=== PATIENT | female | born 1945 | race Caucasian/White ===

== ENCOUNTER 2016-06-23 18:31 | Inpatient (IN) | payer OTHER ==
[~2016-06-23] VITALS: Ht 154.9 cm; Wt 99.1 kg
[~2016-06-23 18:31] MED LIST: ALLO300T2 PO; ASPCH81X PO; CLON0.1T12 PO; FRS/40 PO; HYDR-5688 PO; IPRASOL4 INH; METO50TA7 PO; NTRGSL/4 UT; SPRIN/30 INH; TRAM-10 PO; VALS40TA2 PO; VNTHFA/IN INH; WARF5TAB7 PO
[2016-06-23] MEDS ORDERED: LABETALOL HCL IV 5 MG/ML 20ML IV STA (18:59)
[2016-06-23] MEDS ORDERED: ONDANSETRON INJ 2 MG/ML 2 ML VIAL IV STA (18:59)
[2016-06-23] MEDS ORDERED: MoRPHine SULFATE 4 MG/ML 1 ML CARP\\VIAL IV PRN (19:00)
--- NOTE | 2016-06-23 19:12 | EMERGENCY ROOM VISIT NOTE ---
History Report prepared by Ra: Kirby Molina Under the Supervision of: Dr. Derrek Foley M.D. First contact with patient: 18:56 Chief Complaint: DIZZY Stated Complaint: DIZZINESS FOR 5 DAYS, H/O BRAIN BLEED 03/16 Nursing Triage Summary: Pt's daughter reports pt has been dizzy x1 week Pt had brain bleed in march and was in [place] 2 weeks pt c/o headache x several days History of Present Illness The patient is a 70 year old female who presents to the Emergency Room with complaints of intermittent dizziness beginning about 5 days ago. She notes she has a recent history of a brain bleed occurring in March of 2016. The patient has also had a headache which she rates a 10/10 in severity. She reports the headache has been around a 10/10 for about 1 week. She hit her head a few days ago while getting into a car. The patient admits to having a cough primarily at night, but denies having any fever, nausea, or difficult moving her arm or legs. The patient is on blood pressure medication but has not been taking it regularly as she often forgets. She notes she was recently taken off of Coumadin. Source of History: patient, other (aide) Onset: about 5 days ago Position: head Quality: other (dizziness) Timing: intermittent Associated Symptoms: + headache (10/10), No fevers, No nausea Note: The patient denies having any difficult moving her ams or legs. Review of Systems See HPI for pertinent positives & negatives. A total of 10 systems reviewed and were otherwise negative. Past Medical & Surgical Medical Problems: (1) Atrial fibrillation (2) CAD (coronary artery disease) (3) CKD (chronic kidney disease), stage IV (4) COPD, severe (5) Depression (6) DM type 2 (diabetes mellitus, type 2) (7) Dyslipidemia (8) GERD (gastroesophageal reflux disease) (9) History of intracranial hemorrhage (10) HTN (hypertension) (11) IBS (irritable bowel syndrome) (12) Nontraumatic intracerebral hemorrhage Surgical Problems: (1) H/O sinus surgery (2) History of total left knee replacement (3) S/P cholecystectomy Family History No pertinent family history stated. Social History Smoking Status: Never Smoker Current/Historical Medications Scheduled Allopurinol (Zyloprim), 450 MG PO DAILY Chlorhexidine Gluconate (Mouth (Periogard), 15 ML PO BID Clonidine Hcl (Catapres), 0.2 MG PO BID Famotidine (Pepcid), 20 MG PO DAILY Furosemide (Lasix), 40 MG PO DAILY Levetiracetam (Keppra), 500 MG PO BID Metoprolol Succ (Toprol Xl) (Toprol-Xl ), 100 MG PO HS Potassium Chloride (Micro-K Ext Rel), 10 MEQ PO DAILY Tiotropium [place] (Spiriva Handihaler), 1 CAP INH DAILY Scheduled PRN Acetaminophen Tab (Tylenol), 650 MG PO Q4 PRN for Pain Albuterol Hfa (Ventolin Hfa), 2 PUFFS INH Q4H PRN for SOB/Wheezing Docusate Sodium (Docusate Sodium), 1 CAP PO BID PRN for Constipation Ipratropium-Albuterol (Duoneb), 1 TREATMENT INH QID PRN for SOB/Wheezing Nitroglycerin (Nitrostat), 0.4 MG UT UD PRN for Chest Pain Tramadol (Ultram), 50 MG PO Q8H PRN for Pain Allergies Coded Allergies: Verapamil (Verified Allergy, Mild, UNKNOWN, 06/23/16) [place] [facility] [place]inopril (Verified Adverse Reaction, Mild, COUGH, 06/23/16) Physical Exam Vital Signs Date Time Temp Pulse Resp B/P Pulse Ox O2 Delivery O2 Flow Rate FiO2 06/23/16 21:19 179/80 06/23/16 20:25 80 18 181/114 97 Room Air 06/23/16 20:04 86 18 206/155 93 Room Air 06/23/16 18:40 36.5 89 18 224/123 97 Room Air Physical Exam GENERAL: Patient is in no acute distress. HEENT: No acute trauma, normocephalic atraumatic, mucous membranes moist, no nasal congestion, no scleral icterus. Pupils are equal, round, and reactive to light. NECK: No stridor, no adenopathy, no meningismus, trachea is midline. LUNGS: Clear to auscultation bilaterally, no wheeze, no rhonchi, breath sounds equal. HEART: Without murmurs gallops or rubs, regular rate and rhythm. ABDOMEN: Soft, nontender, bowel sounds positive, no hernias, no peritonitis. EXTREMITIES: No cyanosis or edema, full range of motion of all the joints without pain or difficulty, no signs for acute trauma. NEUROLOGIC: Oriented x 3, no acute motor or sensory deficits, no focal weakness. SKIN: No rash, no jaundice, no diaphoresis. Medical Decision & Procedures ER Provider Diagnostic Interpretation: X ray results and stated below per my interpretation and radiologist interpretation. Other radiology results and stated below per my review and radiologist interpretation: CT HEAD WITHOUT CONTRAST (CT) FINDINGS: There are expected evolutionary changes of the previously described right occipital hemorrhage. Only minimal hemorrhage is visualized. There is no CT evidence of acute cortical infarction. There is a right cerebellar infarct which was not clearly visualized the prior study. There is a right basal ganglial lacunar infarct. There is an old infarct in the left external capsule There are extensive white matter hypodensities likely on a small vessel basis. There is no evidence of pathologic ventricular dilatation. There is no evidence of acute sinusitis IMPRESSION: 1. Right cerebellar infarct which appears better defined than on the preceding study 2. Resolving right occipital lobe hemorrhage 3. Old lacunar infarct involving the right basal ganglia and left external capsule 4. No evidence of acute hemorrhage. 5. Extensive white matter disease Electronically signed by: Renato Marti M.D. 06/23/2016 7:51 PM Dictated Date/Time: 06/23/2016 7:48 PM Laboratory Results 06/23/16 19:25 Red Blood Count 4.61, Mean Corpuscular Volume 90.2, Mean Corpuscular Hemoglobin 31.5, Mean Corpuscular Hemoglobin Concent 34.9, Mean Platelet Volume 12.0, Neutrophils (%) (Auto) 48.4, Lymphocytes (%) (Auto) 38.1, Monocytes (%) (Auto) 8.6, Eosinophils (%) (Auto) 3.9, Basophils (%) (Auto) 0.7, Neutrophils # (Auto) 3.44, Lymphocytes # (Auto) 2.71, Monocytes # (Auto) 0.61, Eosinophils # (Auto) 0.28, Basophils # (Auto) 0.05 06/23/16 19:25 Test 06/23/16 18:35 06/23/16 19:25 Urine Color YELLOW Urine Appearance CLEAR (CLEAR) Urine pH 7.0 (4.5-7.5) Urine Specific [place] 1.012 (1.000-1.030) Urine Protein 1+ (NEG) Urine Glucose (UA) NEG (NEG) Urine Ketones NEG (NEG) Urine Occult Blood NEG (NEG) Urine Nitrite NEG (NEG) Urine Bilirubin NEG (NEG) Urine Urobilinogen NEG (NEG) Urine Leukocyte Esterase NEG (NEG) Urine WBC (Auto) 1-5 /hpf (0-5) Urine RBC (Auto) 0-4 /hpf (0-4) Urine Hyaline Casts (Auto) 0 /lpf (0-5) Urine Epithelial Cells (Auto) >30 /lpf (0-5) Urine Bacteria (Auto) NEG (NEG) White Blood Count 7.11 K/uL (4.8-10.8) Red Blood Count 4.61 M/uL (4.2-5.4) Hemoglobin 14.5 g/dL (12.0-16.0) Hematocrit 41.6 % (37-47) Mean Corpuscular Volume 90.2 fL (80-100) Mean Corpuscular Hemoglobin 31.5 pg (25-34) Mean Corpuscular Hemoglobin Concent 34.9 g/dl (32-36) Platelet Count 150 K/uL (130-400) Mean Platelet Volume 12.0 fL (7.4-10.4) Neutrophils (%) (Auto) 48.4 % Lymphocytes (%) (Auto) 38.1 % Monocytes (%) (Auto) 8.6 % Eosinophils (%) (Auto) 3.9 % Basophils (%) (Auto) 0.7 % Neutrophils # (Auto) 3.44 K/uL (1.4-6.5) Lymphocytes # (Auto) 2.71 K/uL (1.2-3.4) Monocytes # (Auto) 0.61 K/uL (0.11-0.59) Eosinophils # (Auto) 0.28 K/uL (0-0.5) Basophils # (Auto) 0.05 K/uL (0-0.2) RDW Standard Deviation 46.5 fL (36.4-46.3) RDW Coefficient of Variation 14.2 % (11.5-14.5) Immature Granulocyte % (Auto) 0.3 % Immature Granulocyte # (Auto) 0.02 K/uL (0.00-0.02) Prothrombin Time 10.7 SECONDS (9.0-12.0) Prothromb Time International Ratio 1.0 (0.9-1.1) Activated Partial Thromboplast Time 23.0 SECONDS (21.0-31.0) Partial Thromboplastin Ratio 0.9 Anion Gap 7.0 mmol/L (3-11) Estimated GFR () 32.0 Estimated GFR (Non- 27.6 BUN/Creatinine Ratio 21.2 (10-20) Calcium Level 9.4 mg/dl (8.5-10.1) Total Bilirubin 0.4 mg/dl (0.2-1) Aspartate Amino Transf (AST/SGOT) 23 U/L (15-37) Alanine Aminotransferase (ALT/SGPT) 18 U/L (12-78) Alkaline Phosphatase 67 U/L (45-117) Total Protein 7.1 gm/dl (6.4-8.2) Albumin 3.3 gm/dl (3.4-5.0) Globulin 3.8 gm/dl (2.5-4.0) Albumin/Globulin Ratio 0.9 (0.9-2) Laboratory results reviewed by me. Medications Administered Medications (Trade) Dose Ordered Sig/Nydia Route Start Time Stop Time Status Last Admin Dose Admin Labetalol HCl (Normodyne IV) 20 mg NOW STAT IV 06/23/16 18:59 06/23/16 19:03 DC 06/23/16 20:07 20 MG Ondansetron HCl (Zofran Inj) 4 mg NOW STAT IV 06/23/16 18:59 06/23/16 19:03 DC 06/23/16 18:59 4 MG Morphine Sulfate (MoRPHine SULFATE INJ) 4 mg Q15M PRN IV 06/23/16 19:00 07/07/16 18:59 06/23/16 19:37 4 MG ECG Rate (beats per minute): 83 Rhythm: atrial fibrillation Findings: no acute ischemic change, no ectopy ED Course 1855: The patient was evaluated in room C8. A complete history and physical exam was performed. 1858: Ordered Zofran Inj 4 mg IV, and Normodyne IV 20 mg IV. 1899: Ordered Morphine Sulfate 4 mg IV. 1957: I reassessed the patient. She feels better from the morphine. I talked about staying in the hospital and she will discuss this with her daughter. 2019: The patient has decided on staying in the hospital. 2044: Discussed the patient's case with Dr. Dwyer. The patient will be evaluated for further management. Medical Decision Differentials include intracranial bleeding, uncontrolled hypertension, medication noncompliance, electrolyte imbalance, anemia, cardiac ischemia, and infection. There is no leukocytosis or concerning anemia. Renal panel testing shows renal insufficiency but this appears baseline. There was no hepatitis. EKG shows A. fib, no acute ischemia. There was no coagulopathy. Urinalysis does not show evidence for infection. Brain CT shows resolving hemorrhage, no acute hemorrhage seen. A subacute stroke was seen in the cerebellum. The patient presents with a headache and dizziness. She has had symptoms now for days. She is not a TPA candidate. She received IV morphine and IV Zofran. She received IV labetalol because of the persistently elevated blood pressure. Given the dizziness, given the new stroke findings on CT, given her complaints and persistent hypertension, I do think admission/observation is warranted. I spoke with the patient and case management. The on-call hospitalist was consulted. Consults Time Called: 2039 Consulting Physician: Dr. Dwyer - Bernarda Perea Returned Call: 2044 Discussed the patient's case with Dr. Dwyer. The patient will be evaluated for further management. Impression Primary Impression: HTN (hypertension) Additional Impressions: CVA (cerebral vascular accident) Dizziness Scribe Attestation The scribe's documentation has been prepared under my direction and personally reviewed by me in its entirety. I confirm that the note above accurately reflects all work, treatment, procedures, and medical decision making performed by me. Departure Information Dispostion Being Evaluated By Hospitalist Referrals Cristiano Cerda M.D. (PCP) Patient Instructions [facility] Health Problem Qualifiers
[2016-06-23 19:22] LABS: URINE APPEARANCE CLEAR (CLEAR); URINE BILIRUBIN NEG (NEG); URINE COLOR YELLOW; URINE EPITHELIAL CELL AUTO >30 /lpf (0-5); URINE NITRITE NEG (NEG); URINE SPECIFIC GRAVITY 1.012 (1.000-1.030); UROBILINOGEN NEG (NEG); ZZUR CULT IF INDIC CLEAN CATCH NO
[2016-06-23 19:29] LABS: MANUAL MICROSCOPIC REQUIRED? NO; REVIEW REQ? NO
[2016-06-23 19:38] LABS: BASO % 0.7 %; BASO ABS # 0.05 K/uL (0-0.2); COMPLETE YES; EOS % 3.9 %; HEMATOCRIT 41.6 % (37-47); IG% 0.3 %; LYMPH % 38.1 %; LYMPH ABS # 2.71 K/uL (1.2-3.4); MEAN CELL VOLUME 90.2 fL (80-100); MEAN CORPUSCULAR HEMOGLOBIN 31.5 pg (25-34); MEAN CORPUSCULAR HGB CONC 34.9 g/dl (32-36); MONO % 8.6 %; NEUT % 48.4 %; PLATELET COUNT 150 K/uL (130-400); RED BLOOD COUNT 4.61 M/uL (4.2-5.4); WHITE BLOOD COUNT 7.11 K/uL (4.8-10.8)
[2016-06-23 19:50] LABS: PARTIAL THROMBOPLASTIN RATIO 0.9; PROTHROMBIN TIME (PATIENT) 10.7 SECONDS (9.0-12.0)
--- NOTE | 2016-06-23 19:52 | DIAGNOSTIC IMAGING REPORT ---
CT HEAD WITHOUT CONTRAST (CT) CLINICAL HISTORY: Severe headache, dizziness, history of brain hemorrhage COMPARISON STUDY: 03/08/2016 TECHNIQUE: Axial CT of the brain is performed from the vertex to the skull base. IV contrast was not administered for this examination. CT DOSE: 623.48 mGy.cm FINDINGS: There are expected evolutionary changes of the previously described right occipital hemorrhage. Only minimal hemorrhage is visualized. There is no CT evidence of acute cortical infarction. There is a right cerebellar infarct which was not clearly visualized the prior study. There is a right basal ganglial lacunar infarct. There is an old infarct in the left external capsule There are extensive white matter hypodensities likely on a small vessel basis. There is no evidence of pathologic ventricular dilatation. There is no evidence of acute sinusitis IMPRESSION: 1. Right cerebellar infarct which appears better defined than on the preceding study 2. Resolving right occipital lobe hemorrhage 3. Old lacunar infarct involving the right basal ganglia and left external capsule 4. No evidence of acute hemorrhage. 5. Extensive white matter disease Electronically signed by: Renato Marti M.D. 06/23/2016 7:51 PM Dictated Date/Time: 06/23/2016 7:48 PM
[2016-06-23 19:54] LABS: ALT/SGPT 18 U/L (12-78); BLOOD UREA NITROGEN 38 mg/dl (7-18); BUN/CREATININE RATIO 21.2 (10-20); CALCIUM 9.4 mg/dl (8.5-10.1); CARBON DIOXIDE 32 mmol/L (21-32); CHLORIDE 101 mmol/L (98-107); GLUCOSE 135 mg/dl (70-99); POTASSIUM 3.9 mmol/L (3.5-5.1); SODIUM 140 mmol/L (136-145)
[2016-06-23 19:56] LABS: ALB/GLOB RATIO 0.9 (0.9-2); ALKALINE PHOSPHATASE 67 U/L (45-117); AST/SGOT 23 U/L (15-37)
[2016-06-23] MEDS ORDERED: METO1TAB69 PO ×2 (20:51)
[2016-06-23] MEDS ORDERED: CLON0.2T PO (20:51)
[2016-06-23] MEDS ORDERED: CHLO0.122 PO (20:51)
[2016-06-23] MEDS ORDERED: LEVE500T13 PO (20:51)
[2016-06-23] MEDS ORDERED: DOCU100C31 PO (20:51)
[2016-06-23] MEDS ORDERED: FAMO20TA11 PO (20:51)
[2016-06-23] MEDS ORDERED: FRS/40 PO (20:51)
[2016-06-23] MEDS ORDERED: POTA10CA28 PO (20:51)
[2016-06-23] MEDS ORDERED: ACET325T96 PO (20:51)
[2016-06-23] MEDS ORDERED: ACETAMINOPHEN 325 MG TAB PO PRN (21:45)
[2016-06-23] MEDS ORDERED: ONDANSETRON INJ 2 MG/ML 2 ML VIAL IV PRN (21:45)
[2016-06-23] MEDS ORDERED: PHARMACIST DISCHARGE MED REC CONSULT PRN (21:45)
[2016-06-23] MEDS ORDERED: VNTHFA/IN INH (21:51)
[2016-06-23] MEDS ORDERED: SPRIN/30 INH (21:51)
[2016-06-23 22:15] VITALS: BP 206/140; PULSE 77; TEMP 36.4; O2SAT 95; Ht 154.9 cm; Wt 99.1 kg
[2016-06-23] MEDS ORDERED: TRAMADOL HCL 50 MG TAB PO PRN (22:15)
[2016-06-23] MEDS ORDERED: DOCUSATE SODIUM 100 MG CAP PO PRN (22:15)
[2016-06-23] MEDS ORDERED: ALBUT/IPRATROP 3MG/0.5MG NEB 3 ML VIAL INH PRN (22:15)
--- NOTE | 2016-06-23 22:39 | History and Physical ---
History & Physical Date & Time of Service: Jun 23, 2016 at 22:15 Chief Complaint: Headache Primary Care Physician: Cristiano Cerda M.D. History of Present Illness 70 year old female who presents to the ER with headache. Patient has history of nontraumatic right occipital hemorrhage in 03/2016 in the setting of Coumadin therapy and severe hypertension. En route to [facility] patient had a seizure. Patient was treated conservatively and ASA and Coumadin were stopped. Patient reports 6 days ago while getting into the car the car door hit her in the head. She reports she has had a headache in the back of her head since that has been progressively getting worse. She also notes some intermittent pain across her forehead as well. She has had associated dizziness. She denies lightheadedness or syncopal events. Her vision has been intermittently blurry however it has been that was since the bleed in March. She denies any unilateral weakness, numbness, or tingling. No slurred speech, facial droop, or difficulty swallowing. Patient was seen by cardiology recently and has had changes made in her blood pressure medicines (discontinuation of amlodipine and increases in metoprolol succinate and clonidine) and addition of furosemide for volume overload. Daughter notes however that she has not been giving the patient the additional metoprolol that was prescribed. Patient denies chest pain. She has chronic exertional shortness of breath which is unchanged. Lower extremity edema has improved since initiation of Lasix. She denies abdominal pain, nausea, vomiting, and diarrhea. No fever or chills. She denies any urinary symptoms. On arrival, patient's BP 224/123. Patient was given Labetalol 20mg IV with improvement of BP. Patient reports her headache has resolved. Past Medical/Surgical History Medical Problems: (1) Atrial fibrillation Status: Chronic (2) CAD (coronary artery disease) Permanent Comment: [facility] to LAD cath 2015 - moderate non obstructive disease Status: Chronic (3) CKD (chronic kidney disease), stage IV Status: Chronic (4) COPD, severe Status: Chronic (5) Depression Status: Chronic (6) DM type 2 (diabetes mellitus, type 2) Status: Chronic (7) Dyslipidemia Status: Chronic (8) GERD (gastroesophageal reflux disease) Status: Chronic (9) HTN (hypertension) Status: Chronic (10) IBS (irritable bowel syndrome) Status: Chronic (11) Nontraumatic intracerebral hemorrhage Status: Chronic Surgical Problems: (1) H/O sinus surgery Status: Chronic (2) History of total left knee replacement Status: Chronic (3) S/P cholecystectomy Status: Chronic Family History FH: stomach cancer FATHER Social History Smoking Status: Never Smoker Alcohol Use: none Immunizations History of Influenza Vaccine: No History of Tetanus Vaccine?: Yes Tetanus Immunization Date: Dec 07, 2007 History of Pneumococcal: Yes Pneumococcal Date: Apr 11, 2016 Multi-Drug Resistant Organisms History of MDRO: No Allergies Coded Allergies: Verapamil (Verified Allergy, Mild, UNKNOWN, 06/23/16) INFO FROM [facility] [place] Lisinopril (Verified Adverse Reaction, Mild, COUGH, 06/23/16) Home Medications Scheduled Allopurinol (Zyloprim), 450 MG PO DAILY Chlorhexidine Gluconate (Mouth (Periogard), 15 ML PO BID Clonidine Hcl (Catapres), 0.2 MG PO BID Famotidine (Pepcid), 20 MG PO DAILY Furosemide (Lasix), 40 MG PO DAILY Levetiracetam (Keppra), 500 MG PO BID Metoprolol Succ (Toprol Xl) (Toprol-Xl ), 100 MG PO HS Potassium Chloride (Micro-K Ext Rel), 10 MEQ PO DAILY Tiotropium [place] (Spiriva Handihaler), 1 CAP INH DAILY Scheduled PRN Acetaminophen Tab (Tylenol), 650 MG PO Q4 PRN for Pain Albuterol Hfa (Ventolin Hfa), 2 PUFFS INH Q4H PRN for SOB/Wheezing Docusate Sodium (Docusate Sodium), 1 CAP PO BID PRN for Constipation Ipratropium-Albuterol (Duoneb), 1 TREATMENT INH QID PRN for SOB/Wheezing Nitroglycerin (Nitrostat), 0.4 MG UT UD PRN for Chest Pain Tramadol (Ultram), 50 MG PO Q8H PRN for Pain Review of Systems 10 point review of systems was completed with the pertinent positives and negatives noted per the HPI Physical Exam Vital Signs Date Time Temp Pulse Resp B/P Pulse Ox O2 Delivery O2 Flow Rate FiO2 06/23/16 22:01 74 18 170/109 95 Room Air 06/23/16 21:19 179/80 06/23/16 20:25 80 18 181/114 97 Room Air 06/23/16 20:04 86 18 206/155 93 Room Air 06/23/16 18:40 36.5 89 18 224/123 97 Room Air General Appearance: no apparent distress Head: normocephalic Eyes: normal inspection ENT: hearing grossly normal Neck: supple, no JVD Respiratory/Chest: lungs clear, normal breath sounds, no respiratory distress Cardiovascular: regular rate, rhythm, + pertinent finding (+1-2 edema BLLE) Abdomen/GI: normal bowel sounds, non tender, soft Extremities/Musculoskelatal: normal inspection, no calf tenderness Neurologic/Psych: no motor/sensory deficits, alert, normal mood/affect, oriented x 3 Skin: normal color, warm/dry Diagnostics Laboratory Results Results Past 24 Hours Test 06/23/16 18:35 06/23/16 19:25 06/23/16 21:37 Range/Units Urine Color YELLOW Urine Appearance CLEAR CLEAR Urine pH 7.0 4.5-7.5 Urine Specific [place] 1.012 1.000-1.030 Urine Protein 1+ NEG Urine Glucose (UA) NEG NEG Urine Ketones NEG NEG Urine Occult Blood NEG NEG Urine Nitrite NEG NEG Urine Bilirubin NEG NEG Urine Urobilinogen NEG NEG Urine Leukocyte Esterase NEG NEG Urine WBC (Auto) 1-5 0-5 /hpf Urine RBC (Auto) 0-4 0-4 /hpf Urine Hyaline Casts (Auto) 0 0-5 /lpf Urine Epithelial Cells (Auto) >30 0-5 /lpf Urine Bacteria (Auto) NEG NEG White Blood Count 7.11 4.8-10.8 K/uL Red Blood Count 4.61 4.2-5.4 M/uL Hemoglobin 14.5 12.0-16.0 g/dL Hematocrit 41.6 37-47 % Mean Corpuscular Volume 90.2 80-100 fL Mean Corpuscular Hemoglobin 31.5 25-34 pg Mean Corpuscular Hemoglobin Concent 34.9 32-36 g/dl Platelet Count 150 130-400 K/uL Mean Platelet Volume 12.0 7.4-10.4 fL Neutrophils (%) (Auto) 48.4 % Lymphocytes (%) (Auto) 38.1 % Monocytes (%) (Auto) 8.6 % Eosinophils (%) (Auto) 3.9 % Basophils (%) (Auto) 0.7 % Neutrophils # (Auto) 3.44 1.4-6.5 K/uL Lymphocytes # (Auto) 2.71 1.2-3.4 K/uL Monocytes # (Auto) 0.61 0.11-0.59 K/uL Eosinophils # (Auto) 0.28 0-0.5 K/uL Basophils # (Auto) 0.05 0-0.2 K/uL RDW Standard Deviation 46.5 36.4-46.3 fL RDW Coefficient of Variation 14.2 11.5-14.5 % Immature Granulocyte % (Auto) 0.3 % Immature Granulocyte # (Auto) 0.02 0.00-0.02 K/uL Prothrombin Time 10.7 9.0-12.0 SECONDS Prothromb Time International Ratio 1.0 0.9-1.1 Activated Partial Thromboplast Time 23.0 21.0-31.0 SECONDS Partial Thromboplastin Ratio 0.9 Sodium Level 140 136-145 mmol/L Potassium Level 3.9 3.5-5.1 mmol/L Chloride Level 101 98-107 mmol/L Carbon Dioxide Level 32 21-32 mmol/L Anion Gap 7.0 3-11 mmol/L Blood Urea Nitrogen 38 7-18 mg/dl Creatinine 1.80 0.60-1.20 mg/dl Estimated GFR () 32.0 Estimated GFR (Non- 27.6 BUN/Creatinine Ratio 21.2 10-20 Random Glucose 135 70-99 mg/dl Calcium Level 9.4 8.5-10.1 mg/dl Total Bilirubin 0.4 0.2-1 mg/dl Aspartate Amino Transf (AST/SGOT) 23 15-37 U/L Alanine Aminotransferase (ALT/SGPT) 18 12-78 U/L Alkaline Phosphatase 67 45-117 U/L Total Protein 7.1 6.4-8.2 gm/dl Albumin 3.3 3.4-5.0 gm/dl Globulin 3.8 2.5-4.0 gm/dl Albumin/Globulin Ratio 0.9 0.9-[address] HEAD IMPRESSION: 1. Right cerebellar infarct which appears better defined than on the preceding study 2. Resolving right occipital lobe hemorrhage 3. Old lacunar infarct involving the right basal ganglia and left external capsule 4. No evidence of acute hemorrhage. 5. Extensive white matter disease Impression Assessment and Plan HYPERTENSIVE URGENCY - admit to tele - patient presenting with increasing posterior headache x 6 days; BP found to be 224/123 with improvement and resolution of headache after IV Labetalol - CT head shows improving right occipital hemorrhage, better defined right cerebellar infarct, and old lacunar infarcts; discussed with radiologist - these are all chronic findings - case also discussed with Dr. Andrews, neurology - will obtain MRI/MRA brain - resume patient's home meds - clonidine and metoprolol succinate with the additional 25mg metoprolol succinate AM dose patient was to start however never did - PRN hydralazine for SBPs > 180 HX NON TRAUMATIC INTRACEREBRAL HEMORRHAGE, SEIZURE - occurred in the setting of Coumadin use and severe HTN - was treated conservatively however patient did suffer seizure x 1 - no antiplatelets/anticoagulation - continue Keppra CHRONIC DIASTOLIC CHF - appears euvolemic - continue furosemide - echo 06/2014 - EF 55-60%, diastolic dysfunction ATRIAL FIBRILLATION - rate controlled on beta marlee, will continue - no anticoagulation due to intracerebral hemorrhage DVT PROPHYLAXIS - SCDs due to hx intracerebral hemorrhage ADDENDUM: I have seen and examined the patient and discussed the case with the provider above. I agree with the assessment and plan as stated. She has hypertensive urgency which is likely related to rebound hypertension from intermittent clonidine use. Her daughter manages her medications, and the patient will frequently forget to take what is in her pill box. She also complains of fatigue all the time. For these reasons, clonidine is likely not the best antihypertensive agent. Will defer this to primary team. In the setting of prior strokes and a head bleed that is resolving, it would be ideal to have more consistent BP control <160 on average. She also states that she doesn't drink enough water and is on Lasix. She appears clinically dry on exam. This may have contributed to her headache and dizziness. Her DURAN has resolved with BP control and she is hoping to go home later today. MR imaging was performed, and after discussion with Neurology we are holding ASA. Neuro to see in am. Cont telemetry monitoring overnight. Emperatriz Dwyer, DO Hospitalist Level of Care Telemetry Resuscitation Status DO NOT RESUSCITATE VTE Prophylaxis VTE Risk Assessment Done? Y/N: Yes Risk Level: Moderate Given or contraindicated: Contraindicated
[2016-06-23 23:07] VITALS: BP 165/107; PULSE 69
[2016-06-23] MEDS: CLONIDINE HCL 0.1 MG TAB PO SCH (23:55)
[2016-06-23] MEDS: METOPROLOL SUCC 50MG EXT REL TAB PO SCH (23:56)
[2016-06-24] VITALS (11 sets, daily range): BP systolic 146–188; BP diastolic 82–124; PULSE 62–79; TEMP 36.4–36.8; O2SAT 94–98
[2016-06-24 05:42] LABS: HEMATOCRIT 39.6 % (37-47); MEAN CELL VOLUME 89.2 fL (80-100); MEAN CORPUSCULAR HEMOGLOBIN 30.2 pg (25-34); MEAN CORPUSCULAR HGB CONC 33.8 g/dl (32-36); MEAN PLATELET VOLUME 11.2 fL (7.4-10.4); PLATELET COUNT 131 K/uL (130-400); RED BLOOD COUNT 4.44 M/uL (4.2-5.4); WHITE BLOOD COUNT 7.33 K/uL (4.8-10.8)
[2016-06-24 06:07] LABS: BUN/CREATININE RATIO 24.6 (10-20); CALCIUM 9.1 mg/dl (8.5-10.1); CREATININE 1.5 mg/dl (0.60-1.20); POTASSIUM 3.6 mmol/L (3.5-5.1)
[2016-06-24 06:10] LABS: CHOLESTEROL/HDL RATIO 3.9
[2016-06-24 06:34] LABS: ESTIMATED AVERAGE GLUCOSE 123 mg/dl; HA1C FLAG Normal (Normal)
--- NOTE | 2016-06-24 07:01 | DIAGNOSTIC IMAGING REPORT ---
Brain MRA HISTORY: Mental status change Stroke - Attention to [place] TECHNIQUE: 3-D [id number] MRA of the brain was performed without contrast. COMPARISON STUDY: None FINDINGS: Mild to moderate multifocal arterial occlusive change throughout the entire intracranial vasculature. Basilar artery is narrowed at multiple sites. This is true as well of the middle and anterior cerebral circulation. The right vertebral artery is potentially occluded. All findings are compromised due to the presence of considerable patient motion artifact. IMPRESSION: 1. 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 2. Moderate to moderately significant arterial occlusive change throughout all major components of the anterior middle and posterior cerebral circulation. 3. Compromised evaluation due to motion artifact. Electronically signed by: Wes Martinez M.D. 06/24/2016 7:00 AM Dictated Date/Time: 06/24/2016 6:57 AM
--- NOTE | 2016-06-24 07:18 | DIAGNOSTIC IMAGING REPORT ---
BILATERAL CAROTID DOPPLER STUDY HISTORY: Mental status change Stroke COMPARISON: None. TECHNIQUE: Real-time, grayscale, and color Doppler sonography of the carotid arteries was performed. Imaging reviewed in the transverse and longitudinal planes. All measurements were calculated based on NASCET criteria. FINDINGS: Antegrade flow is seen in the bilateral vertebral arteries. The brachial pressures are hemodynamically similar. Significant plaque bilaterally The peak systolic velocity within the right ICA is 86. The right systolic ratio is 2.5. The peak systolic velocity within the left ICA is 99. The left systolic ratio is 2.0. IMPRESSION: Significant plaque formation bilaterally. No evidence for high-grade stenosis Electronically signed by: Wes Martinez M.D. 06/24/2016 7:17 AM Dictated Date/Time: 06/24/2016 7:05 AM
--- NOTE | 2016-06-24 07:58 | DIAGNOSTIC IMAGING REPORT ---
Brain MRI WITHOUT CONTRAST HISTORY: Stroke symptoms. Severe headache. Dizziness. TECHNIQUE: Multiplanar multisequence MRI of the brain was performed without the use of contrast. COMPARISON STUDY: Head CT 06/23/2016. FINDINGS: Single punctate focus of possible restricted diffusion within the left parietal periventricular white matter. However, there is no loss of signal on the ADC map. This could represent a tiny acute to subacute infarct versus T2 shine through. A few scattered foci of susceptibility artifact seen within the brain consistent with amyloidosis. Moderate atrophy and moderate microvascular ischemic changes are again noted. There is no mass or midline shift. Paranasal sinuses and mastoid air cells are clear. Old right cerebellar infarct and old bilateral basal ganglia and thalamic lacunar infarcts are noted. Small focus of subacute to old hemorrhage within the right medial periventricular occipital lobe persists. This measures 1.2 cm. No additional areas of acute hemorrhage identified. Foci of susceptibility artifact also identified within the aqueduct of Sylv[place] and third ventricle consistent with old residual hemorrhagic products. IMPRESSION: 1. Punctate focus of possible restricted diffusion within the periventricular white matter of the left parietal lobe. This could represent an acute to subacute infarct versus T2 shine through. 2. Small focus of subacute to old hemorrhage within the periventricular white matter of the right occipital lobe which is unchanged from the prior head CT. 3. Additional scattered punctate foci of susceptibility artifact within the brain consistent with amyloid angiopathy. Electronically signed by: Javon Tariq M.D. 06/24/2016 7:57 AM Dictated Date/Time: 06/24/2016 7:48 AM
[2016-06-24] MEDS: LEVETIRACETAM 500 MG TAB PO SCH ×2 (08:01→20:36)
[2016-06-24] MEDS: CLONIDINE HCL 0.1 MG TAB PO SCH (08:01)
[2016-06-24] MEDS: ALLOPURINOL 300 MG TAB PO SCH (08:02)
[2016-06-24] MEDS: FUROSEMIDE 40 MG TAB PO SCH (08:02)
[2016-06-24] MEDS: TIOTROPIUM BROMIDE 5 PUFF/90 MCG INH INH SCH ×3 (08:02→09:00)
[2016-06-24] MEDS: POTASSIUM CHLORIDE 10 MEQ TABCR PO SCH (08:03)
[2016-06-24] MEDS: FAMOTIDINE 20 MG TAB PO SCH (08:03)
[2016-06-24] MEDS: METOPROLOL SUCC 25MG EXT REL TAB PO SCH (08:03)
[2016-06-24] MEDS: HydrALAZINE HCL 20 MG/ML VIAL IV. PRN (10:39)
[2016-06-24] MEDS ORDERED: NURSING VERBAL MED ORDER ONE (10:45)
[2016-06-24] MEDS ORDERED: HydrALAZINE HCL 20 MG/ML VIAL IV. ONE (10:45)
--- NOTE | 2016-06-24 11:17 | Progress Note ---
Internal Med Progress Note Date of Service: Jun 24, 2016. Provider Documentation: SUBJECTIVE: Patient denies any headaches. No localized weakness, nausea, vomiting, numbness/tingling, slurred speech, facial asymmetry No chest pain, sob, fever,chills. OBJECTIVE: Vital Signs-as noted below Exam: General-AAOX3, Obese + Not in distress Neck-Supple, No JVD Lungs-AEBE decreased, no wheezing Heart-S1, S2 normal, no murmur Abdomen-Soft, non tender, non distended, BS present Extremities-No edema Neuro-AAOX3, Power=- 5/5 all ext, Cranial nerves intact Lab data as noted below. Diagnostic Radiology CT HEAD IMPRESSION: 1. Right cerebellar infarct which appears better defined than on the preceding study 2. Resolving right occipital lobe hemorrhage 3. Old lacunar infarct involving the right basal ganglia and left external capsule 4. No evidence of acute hemorrhage. 5. Extensive white matter disease MRA HEAD IMPRESSION: 1. 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 2. Moderate to moderately significant arterial occlusive change throughout all major components of the anterior middle and posterior cerebral circulation. 3. Compromised evaluation due to motion artifact. MRI BRAIN IMPRESSION: 1. Punctate focus of possible restricted diffusion within the periventricular white matter of the left parietal lobe. This could represent an acute to subacute infarct versus T2 shine through. 2. Small focus of subacute to old hemorrhage within the periventricular white matter of the right occipital lobe which is unchanged from the prior head CT. 3. Additional scattered punctate foci of susceptibility artifact within the brain consistent with amyloid angiopathy. ASSESSMENT & PLAN: Assessment and Plan : HYPERTENSIVE URGENCY Likely secondary to Non compliance with medications - Clonidine, Metoprolol causing rebound hypertension. Has had difficulty maintaining BP within goal in past -Restarted home medications - Clonidine 0.2 mg PO BID, Metoprolol 125 mg, Lasix 40 mg daily. Add Amlodipine 5 mg as BP still high. IV Hydralazine 10 mg q 8 hours PRN for SBP > 180 -Work up- CT scan- Improving occipital hemorrhage POSSIBLE CEREBELLAR INFARCT per Imaging -Patient denies any signs of stroke, per CT scan head- improving right occipital hemorrhage, better defined right cerebellar infarct, old lacunar infarcts- per admitting physician discussion with radiologist- these are all chronic findings. MRI brain - 1. Punctate focus of possible restricted diffusion within the periventricular white matter of the left parietal lobe. This could represent an acute to subacute infarct versus T2 shine through. -Not on ASA given recent hemorrhage 03/16 -Work up- MRA Brain- 1. 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 2. Moderate to moderately significant arterial occlusive change throughout all major components of the anterior middle and posterior cerebral circulation; US carotid - Significant plaque bilaterally, No significant stenosis, Echo- pending, LDL- 108 -Neurology consulted. Awaiting inputs HX NON TRAUMATIC INTRACEREBRAL HEMORRHAGE, SEIZURE - occurred in the setting of Coumadin use and severe HTN in 03/16 - was treated conservatively however patient did suffer seizure x 1 - no antiplatelets/anticoagulation - continue Keppra CHRONIC DIASTOLIC CHF - appears euvolemic - continue furosemide 40 mg daily - echo 06/2014 - EF 55-60%, diastolic dysfunction ATRIAL FIBRILLATION - rate controlled on beta marlee, will continue - no anticoagulation due to intracerebral hemorrhage DVT PROPHYLAXIS - SCDs due to hx intracerebral hemorrhage DISPOSITION Continue with tele monitoring, BP monitoring PT/OT prior to discharge Vital Signs: Date Time Temp Pulse Resp B/P Pulse Ox O2 Delivery O2 Flow Rate FiO2 06/24/16 09:55 62 175/100 174/111 06/24/16 08:06 36.4 76 16 184/87 96 Room Air 06/24/16 07:30 Room Air 06/24/16 04:10 36.5 68 146/88 94 Room Air 06/24/16 04:00 94 Room Air 06/24/16 00:00 95 Room Air 06/24/16 00:00 36.4 167/99 95 Room Air 06/23/16 23:07 69 165/107 06/23/16 22:15 36.4 77 20 206/140 95 Room Air 06/23/16 22:01 74 18 170/109 95 Room Air 06/23/16 21:19 179/80 06/23/16 20:25 80 18 181/114 97 Room Air 06/23/16 20:04 86 18 206/155 93 Room Air 06/23/16 18:40 36.5 89 18 224/123 97 Room Air Lab Results: Results Past 24 Hours Test 06/23/16 18:35 06/23/16 19:25 06/24/16 05:25 06/24/16 06:48 Range/Units Urine Color YELLOW Urine Appearance CLEAR CLEAR Urine pH 7.0 4.5-7.5 Urine Specific [place] 1.012 1.000-1.030 Urine Protein 1+ NEG Urine Glucose (UA) NEG NEG Urine Ketones NEG NEG Urine Occult Blood NEG NEG Urine Nitrite NEG NEG Urine Bilirubin NEG NEG Urine Urobilinogen NEG NEG Urine Leukocyte Esterase NEG NEG Urine WBC (Auto) 1-5 0-5 /hpf Urine RBC (Auto) 0-4 0-4 /hpf Urine Hyaline Casts (Auto) 0 0-5 /lpf Urine Epithelial Cells (Auto) >30 0-5 /lpf Urine Bacteria (Auto) NEG NEG White Blood Count 7.11 7.33 4.8-10.8 K/uL Red Blood Count 4.61 4.44 4.2-5.4 M/uL Hemoglobin 14.5 13.4 12.0-16.0 g/dL Hematocrit 41.6 39.6 37-47 % Mean Corpuscular Volume 90.2 89.2 80-100 fL Mean Corpuscular Hemoglobin 31.5 30.2 25-34 pg Mean Corpuscular Hemoglobin Concent 34.9 33.8 32-36 g/dl Platelet Count 150 131 130-400 K/uL Mean Platelet Volume 12.0 11.2 7.4-10.4 fL Neutrophils (%) (Auto) 48.4 % Lymphocytes (%) (Auto) 38.1 % Monocytes (%) (Auto) 8.6 % Eosinophils (%) (Auto) 3.9 % Basophils (%) (Auto) 0.7 % Neutrophils # (Auto) 3.44 1.4-6.5 K/uL Lymphocytes # (Auto) 2.71 1.2-3.4 K/uL Monocytes # (Auto) 0.61 0.11-0.59 K/uL Eosinophils # (Auto) 0.28 0-0.5 K/uL Basophils # (Auto) 0.05 0-0.2 K/uL RDW Standard Deviation 46.5 46.0 36.4-46.3 fL RDW Coefficient of Variation 14.2 14.0 11.5-14.5 % Immature Granulocyte % (Auto) 0.3 % Immature Granulocyte # (Auto) 0.02 0.00-0.02 K/uL Prothrombin Time 10.7 9.0-12.0 SECONDS Prothromb Time International Ratio 1.0 0.9-1.1 Activated Partial Thromboplast Time 23.0 21.0-31.0 SECONDS Partial Thromboplastin Ratio 0.9 Sodium Level 140 143 136-145 mmol/L Potassium Level 3.9 3.6 3.5-5.1 mmol/L Chloride Level 101 104 98-107 mmol/L Carbon Dioxide Level 32 31 21-32 mmol/L Anion Gap 7.0 8.0 3-11 mmol/L Blood Urea Nitrogen 38 37 7-18 mg/dl Creatinine 1.80 1.50 0.60-1.20 mg/dl Estimated GFR () 32.0 39.9 Estimated GFR (Non- 27.6 34.4 BUN/Creatinine Ratio 21.2 24.6 10-20 Random Glucose 135 115 70-99 mg/dl Estimated Average Glucose 123 mg/dl Hemoglobin A1c 5.9 4.5-5.6 % Calcium Level 9.4 9.1 8.5-10.1 mg/dl Total Bilirubin 0.4 0.2-1 mg/dl Aspartate Amino Transf (AST/SGOT) 23 15-37 U/L Alanine Aminotransferase (ALT/SGPT) 18 12-78 U/L Alkaline Phosphatase 67 45-117 U/L Total Protein 7.1 6.4-8.2 gm/dl Albumin 3.3 3.4-5.0 gm/dl Globulin 3.8 2.5-4.0 gm/dl Albumin/Globulin Ratio 0.9 0.9-2 Est Creatinine Clear Calc Drug Dose 34.5 ml/min Triglycerides Level 106 0-150 mg/dl Cholesterol Level 174 0-200 mg/dl HDL Cholesterol 45 mg/dl LDL Cholesterol, Calculated 108 mg/dl VLDL Cholesterol, Calculated 21 mg/dl Cholesterol/HDL Ratio 3.9 Bedside Glucose 106 70-90 mg/dl
--- NOTE | 2016-06-24 13:09 | Neurology Consultation ---
Neurology Consultation Date of Consultation: Jun 24, 2016. Attending Physician: Pooja. Turcios S Primary Care Physician: Cristiano Cerda M.D. Reason for Consultation: CVA History of Present Illness Source: patient Sharron is a 70 year old female who has a PMH afib, IBS, depression, HTN, CAD, DL, CKD IV, COPD, DM2, CVA presents to the ER with headache. She has history of nontraumatic right occipital hemorrhage in 03/2016 in the setting of Coumadin therapy and severe hypertension. She was transferred to [place] she had a seizure. Her aspirin and coumadin was stopped. She it her head several days ago when she was getting into a car and states it has gotten worse. She has headache intermittently daily with associated dizziness.Since March her vision has been blurred and she can no longer read. Cardiology saw her recently and made some changes in her blood pressure medications. But her daughter states she is not currently taking the medications as prescribed. She has ongoing lower extremity edema has improved since initiation of Lasix. In the ED her BP 224/123. denies current headache, SOB, abdominal pain, one sided weakness, numbness tingling, falls, N, V, increased blurred vision. Past Medical/Surgical History Medical Problems: (1) CVA (cerebral vascular accident) Status: Acute (2) Dizziness Status: Acute (3) HTN (hypertension) Status: Chronic (4) Hypertensive emergency Status: Acute (5) Intracranial bleed Status: Acute Social History Alcohol Use: none Allergies Coded Allergies: Verapamil (Verified Allergy, Mild, UNKNOWN, 06/23/16) [place] [facility] [place]inopril (Verified Adverse Reaction, Mild, COUGH, 06/23/16) Current Inpatient Medications Current Inpatient Medications Medications (Trade) Dose Ordered Sig/Nydia Route Start Time Stop Time Status Last Admin Dose Admin Acetaminophen (Tylenol Tab) 650 mg Q4H PRN PO 06/23/16 21:45 07/23/16 21:44 06/24/16 10:48 650 MG Ondansetron HCl (Zofran Inj) 4 mg Q6H PRN IV 06/23/16 21:45 07/23/16 21:44 Miscellaneous Information (Pharmacist Discharge Med Rec Consult) 1 ea UD PRN N/A 06/23/16 21:45 07/23/16 21:44 Allopurinol (Zyloprim Tab) 450 mg DAILY PO 06/24/16 09:00 07/24/16 08:59 06/24/16 08:02 450 MG Docusate Sodium (coLACE CAP) 100 mg BID PRN PO 06/23/16 22:15 07/23/16 22:14 Famotidine (Pepcid Tab) 20 mg DAILY PO 06/24/16 09:00 07/24/16 08:59 06/24/16 08:03 20 MG Furosemide (Lasix Tab) 40 mg DAILY PO 06/24/16 09:00 07/24/16 08:59 06/24/16 08:02 40 MG Albuterol/ Ipratropium (Duoneb) 1 ml QID PRN INH 06/23/16 22:15 07/23/16 22:14 Levetiracetam (Keppra Tab) 500 mg BID PO 06/24/16 09:00 07/24/16 08:59 06/24/16 08:01 500 MG Metoprolol Succinate (Toprol Xl Tab) 100 mg HS PO 06/23/16 23:00 07/23/16 22:59 06/23/16 23:56 100 MG Potassium Chloride (Klor-Con M10) 10 meq DAILY PO 06/24/16 09:00 07/24/16 08:59 06/24/16 08:03 10 MEQ Tiotropium [place] (Spiriva Handihaler Inhaler) 1 puff DAILY INH 06/24/16 09:00 07/24/16 08:59 Tramadol HCl (Ultram Tab) 50 mg Q8H PRN PO 06/23/16 22:15 07/23/16 22:14 Clonidine HCl (Catapres Tab) 0.2 mg BID PO 06/23/16 23:00 07/23/16 22:59 06/24/16 08:01 0.2 MG Metoprolol Succinate (Toprol Xl Tab) 25 mg QAM PO 06/24/16 09:00 07/24/16 08:59 06/24/16 08:03 25 MG Hydralazine HCl (HydrALAZINE INJ) 10 mg Q6H PRN IV. 06/23/16 22:15 07/23/16 22:14 06/24/16 10:39 5 MG Amlodipine Besylate (Norvasc Tab) 5 mg DAILY PO 06/24/16 16:00 07/24/16 15:59 Physical Exam Vital Signs (Past 24 Hrs): Date Time Temp Pulse Resp B/P Pulse Ox O2 Delivery O2 Flow Rate FiO2 06/24/16 12:00 Room Air 06/24/16 11:36 36.4 74 18 187/124 95 Room Air 188/104 06/24/16 09:55 62 175/100 174/111 06/24/16 08:06 36.4 76 16 184/87 96 Room Air 06/24/16 07:30 Room Air 06/24/16 04:10 36.5 68 146/88 94 Room Air 06/24/16 04:00 94 Room Air 06/24/16 00:00 95 Room Air 06/24/16 00:00 36.4 167/99 95 Room Air 06/23/16 23:07 69 165/107 06/23/16 22:15 36.4 77 20 206/140 95 Room Air 06/23/16 22:01 74 18 170/109 95 Room Air 06/23/16 21:19 179/80 06/23/16 20:25 80 18 181/114 97 Room Air 06/23/16 20:04 86 18 206/155 93 Room Air 06/23/16 18:40 36.5 89 18 224/123 97 Room Air Physical Exam: Constitutional: appearance nourished, obese Ears, Nose, Mouth and Throat: mucous membranes moist, no injection and skin normal, eyes normal Cardiovascular irregular irregular Respiratory: clear to auscultation (CTA) and no rales, rhonchi or wheeze Musculoskeletal: 2++ peripheral edema, bilaterally contractures 5th digit Skin: no stigmata of neurocutaneous disease noted and normal and intact Eyes: extraocular muscles intact (EOMI) and pupils equal, round and reactive to light (PERRL), miotic, decreased peripheral vision NEUROLOGIC EXAMINATION: Mental status: Alert and interactive Oriented 2017, no ifs and or buts, knows the president is Trump Oriented to person Speech fluent with no evidence of aphasia Cranial Nerves smile and eye brow raise symmetric, tongue midline Reflexes: Deep tendon reflexes decreased throughout Plantar responses were neutral Sensory: decreased cool touch bilaterally from vaughn to toes, GT proprioception absent, vibration sensation decreased from knees down Coordination: finger to nose without bi pass or tremor Gait/Stance: Posture normal. stands with back flexed using walker Motor: Negative for pronator drift of out stretched arms with eyes closed. Strength: biceps triceps deltoids bilaterally 5/5, hip flex bilaterally 5/5 Laboratory Results Past 24 Hours: 06/24/16 05:25 06/24/16 05:25 Test 06/23/16 18:35 06/23/16 19:25 06/24/16 05:25 06/24/16 11:20 Urine Color YELLOW Urine Appearance CLEAR (CLEAR) Urine pH 7.0 (4.5-7.5) Urine Specific [place] 1.012 (1.000-1.030) Urine Protein 1+ (NEG) Urine Glucose (UA) NEG (NEG) Urine Ketones NEG (NEG) Urine Occult Blood NEG (NEG) Urine Nitrite NEG (NEG) Urine Bilirubin NEG (NEG) Urine Urobilinogen NEG (NEG) Urine Leukocyte Esterase NEG (NEG) Urine WBC (Auto) 1-5 /hpf (0-5) Urine RBC (Auto) 0-4 /hpf (0-4) Urine Hyaline Casts (Auto) 0 /lpf (0-5) Urine Epithelial Cells (Auto) >30 /lpf (0-5) Urine Bacteria (Auto) NEG (NEG) Immature Granulocyte % (Auto) 0.3 % White Blood Count 7.11 K/uL (4.8-10.8) Red Blood Count 4.61 M/uL (4.2-5.4) 4.44 M/uL (4.2-5.4) Hemoglobin 14.5 g/dL (12.0-16.0) Hematocrit 41.6 % (37-47) Mean Corpuscular Volume 90.2 fL (80-100) 89.2 fL (80-100) Mean Corpuscular Hemoglobin 31.5 pg (25-34) 30.2 pg (25-34) Mean Corpuscular Hemoglobin Concent 34.9 g/dl (32-36) 33.8 g/dl (32-36) Platelet Count 150 K/uL (130-400) Mean Platelet Volume 12.0 fL (7.4-10.4) 11.2 fL (7.4-10.4) Neutrophils (%) (Auto) 48.4 % Lymphocytes (%) (Auto) 38.1 % Monocytes (%) (Auto) 8.6 % Eosinophils (%) (Auto) 3.9 % Basophils (%) (Auto) 0.7 % Neutrophils # (Auto) 3.44 K/uL (1.4-6.5) Lymphocytes # (Auto) 2.71 K/uL (1.2-3.4) Monocytes # (Auto) 0.61 K/uL (0.11-0.59) Eosinophils # (Auto) 0.28 K/uL (0-0.5) Basophils # (Auto) 0.05 K/uL (0-0.2) Immature Granulocyte # (Auto) 0.02 K/uL (0.00-0.02) Prothrombin Time 10.7 SECONDS (9.0-12.0) Prothromb Time International Ratio 1.0 (0.9-1.1) Activated Partial Thromboplast Time 23.0 SECONDS (21.0-31.0) Partial Thromboplastin Ratio 0.9 Estimated Average Glucose 123 mg/dl Hemoglobin A1c 5.9 % (4.5-5.6) Total Bilirubin 0.4 mg/dl (0.2-1) Aspartate Amino Transf (AST/SGOT) 23 U/L (15-37) Alanine Aminotransferase (ALT/SGPT) 18 U/L (12-78) Alkaline Phosphatase 67 U/L (45-117) Total Protein 7.1 gm/dl (6.4-8.2) Albumin 3.3 gm/dl (3.4-5.0) Globulin 3.8 gm/dl (2.5-4.0) Albumin/Globulin Ratio 0.9 (0.9-2) RDW Standard Deviation 46.0 fL (36.4-46.3) RDW Coefficient of Variation 14.0 % (11.5-14.5) Anion Gap 8.0 mmol/L (3-11) Est Creatinine Clear Calc Drug Dose 34.5 ml/min Estimated GFR () 39.9 Estimated GFR (Non- 34.4 BUN/Creatinine Ratio 24.6 (10-20) Calcium Level 9.1 mg/dl (8.5-10.1) Triglycerides Level 106 mg/dl (0-150) Cholesterol Level 174 mg/dl (0-200) HDL Cholesterol 45 mg/dl LDL Cholesterol, Calculated 108 mg/dl VLDL Cholesterol, Calculated 21 mg/dl Cholesterol/HDL Ratio 3.9 Bedside Glucose 116 mg/dl (70-90) Imaging MRA brain- 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 Moderate to moderately significant arterial occlusive change throughout all major components of the anterior middle and posterior cerebral circulation. Compromised evaluation due to motion artifact. MRI with and without brain- Punctate focus of possible restricted diffusion within the periventricular white matter of the left parietal lobe. This could represent an acute to subacute infarct versus T2 shine through. Small focus of subacute to old hemorrhage within the periventricular white matter of the right occipital lobe which is unchanged from the prior head CT. Additional scattered punctate foci of susceptibility artifact within the brain consistent with amyloid angiopathy. carotid doppler- Antegrade flow is seen in the bilateral vertebral arteries. The brachial pressures are hemodynamically similar.Significant plaque bilaterally The peak systolic velocity within the right ICA is 86. The right systolic ratio is 2.5. The peak systolic velocity within the left ICA is 99. The left systolic ratio is 2.0. CT head- Right cerebellar infarct which appears better defined than on the preceding study Resolving right occipital lobe hemorrhage Impression 70 year old female headache with elevated blood pressure Plan 1. MRI with evidence of amyloid 2. CT head with resolving IPH 3. afib - no coumadin or aspirin restarted after her IPH 4. continue Keppra 500 mg BID 5. HTN- no controlled -may need to get cards consult 6. echo pending 7. PT/OT for discharge recommendations 8. fall precautions 9. further recommendations to follow I have seen and discussed above patient with Dr Saige Andrews, neurology Hx reviewed, [place] in and [facility] images reviewed. The pt since a R occipital hemor the pt has radiographically had a R cerebellar stroke and a new L periventricular stroke. There is suggestion of amyloid angiopathy given the multiple gradient echo abnormalities suggestive of hemosiderin deposit. The pt has atrial fibrillation. Would consider starting asa 81 mg daily after bp controlled. I discussed the risks (recurrent symptomatic and asymptomatic ICH) and recurrent stroke which we know has occurred radiographically. DWAYNE Andrews MD
[2016-06-24] MEDS ORDERED: AMLODIPINE BESYLATE 5 MG TAB PO SCH (16:00)
[2016-06-24] MEDS: AMLODIPINE BESYLATE 5 MG TAB PO SCH (16:24)
--- NOTE | 2016-06-24 18:47 | ECHOCARDIOGRAM REPORT ---
*NOTICE TO RECEIVING [facility] This information is strictly Confidential and protected under [place] law. [place] law prohibits you from making any further disclosure of this information unless further disclosure is expressly permitted by the written consent of the person to whom it pertains or is authorized by law. A general authorization for the release of medical or other information is not sufficient for this purpose. Hospital accepts no responsibility if the information is made available to any other person, INCLUDING THE PATIENT. Interpretation Summary * Name: BRIAN SCOTT Study Date: 06/24/2016 12:05 PM BP: 146/88 mmHg * Patient Location: C.2T\S\S232\S\1 HR: 67 * : 1945 (M/d/yyyy) Gender: Female Height: 61 in * Age: 70 yrs Ethnicity: [place] Weight: 196 lb * Ordering Physician: Josephine Dias * Referring Physician: Self, Referred * Performed By: Abby Alvarado RCS * * Reason For Study: CVA * BSA: 1.9 m2 * -- Conclusions -- * Atrial fibrillation with controlled ventricular rate was present during the echocardiogram. * There is moderate concentric left ventricular hypertrophy. * The left ventricular wall motion is normal. * The LV Ejection Fraction = 50-55%. * Severe biatrial enlargement is present. * Aortic valve sclerosis mild, without significant aortic valvular stenosis. * There is mild mitral regurgitation. * There is moderate tricuspid regurgitation. * Moderate to severe pulmonary hypertension is present. * The pulmonary artery systolic pressure is calculated to be 70 mm Hg, assuming a right atrial pressure of 15 mm Hg. Procedure Details * A complete two-dimensional transthoracic echocardiogram was performed (2D, M-mode, Doppler and color flow Doppler). * A saline contrast injection was performed to assess for cardiac shunting. * The injection was performed through an intravenous line in the left arm. * The attending nurse who injected the saline contrast was LORI CHISHOLM, RN. * A total of 20 cc of agitated saline was given. Left Ventricle * The left ventricle is normal in size. * There is moderate concentric left ventricular hypertrophy. * Left ventricular systolic function is normal. * Ejection Fraction = 50-55%. * The left ventricular wall motion is normal. Right Ventricle * The right ventricle is normal in size and function. Atria * The left atrium is severely dilated. * The right atrium is severely dilated. * There is no evidence of atrial septal defect, but resolution does not allow assessment for a patent foramen ovale. Mitral Valve * The mitral valve is normal. * There is no mitral valve stenosis. * There is mild mitral regurgitation. Tricuspid Valve * The tricuspid valve is normal. * There is no tricuspid stenosis. * There is moderate tricuspid regurgitation. * Moderate to severe pulmonary hypertension is present. The pulmonary artery systolic pressure is calculated to be 70 mm Hg, assuming a right atrial pressure of 15 mm Hg. Aortic Valve * The aortic valve is trileaflet. * Aortic valve sclerosis mild, without significant aortic valvular stenosis. * Aortic stenosis is absent. * There is no significant aortic regurgitation. Pulmonic Valve * The pulmonary valve is not well seen, but the Doppler examination is normal without significant regurgitation or stenosis. Great Vessels * The aortic root and proximal ascending aorta are normal sized. Pericardium/Pleural * There is no pericardial effusion. Great Vessels * Dilated inferior vena cava with reduced collapsability with sniff indicates an elevated right atrial pressure of 15 mmHg MMode 2D Measurements and Calculations IVSd 1.7 cm IVSs 2.2 cm LVIDd 5.9 cm LVIDs 4.4 cm LVPWd 1.2 cm LVPWs 1.5 cm IVS/LVPW 1.4 FS 25.0 % EDV(Teich) 172.6 ml ESV(Teich) 88.6 ml EF(Teich) 48.7 % EDV(cubed) 204.4 ml ESV(cubed) 86.3 ml EF(cubed) 57.8 % % IVS thick 28.6 % % LVPW thick 24.4 % LV mass(C)d 401.9 grams LV mass(C)dI 214.6 grams/m\S\2 LV mass(C)s 377.4 grams LV mass(C)sI 201.5 grams/m\S\2 SV(Teich) 84.0 ml SI(Teich) 44.8 ml/m\S\2 SV(cubed) 118.1 ml SI(cubed) 63.1 ml/m\S\2 Ao root diam 3.7 cm Ao root area 10.6 cm\S\2 LA dimension 6.2 cm LA/Ao 1.7 LVOT diam 1.9 cm LVOT area 3.0 cm\S\2 LVAd ap4 29.9 cm\S\2 LVLd ap4 7.3 cm EDV(MOD-sp4) 103.9 ml EDV(sp4-el) 103.2 ml LVAs ap4 20.6 cm\S\2 LVLs ap4 6.6 cm ESV(MOD-sp4) 55.7 ml ESV(sp4-el) 54.6 ml EF(MOD-sp4) 46.4 % EF(sp4-el) 47.1 % LVAd ap2 25.0 cm\S\2 LVLd ap2 6.9 cm EDV(MOD-sp2) 78.1 ml EDV(sp2-el) 77.3 ml LVAs ap2 17.9 cm\S\2 LVLs ap2 6.3 cm ESV(MOD-sp2) 43.0 ml ESV(sp2-el) 43.1 ml EF(MOD-sp2) 45.0 % EF(sp2-el) 44.3 % LVLd %diff -6.59 % EDV(MOD-bp) 91.8 ml LVLs %diff -4.83 % ESV(MOD-bp) 48.0 ml EF(MOD-bp) 47.8 % SV(MOD-sp4) 48.2 ml SI(MOD-sp4) 25.7 ml/m\S\2 SV(MOD-sp2) 35.1 ml SI(MOD-sp2) 18.8 ml/m\S\2 SV(MOD-bp) 43.9 ml SI(MOD-bp) 23.4 ml/m\S\2 SV(sp4-el) 48.6 ml SI(sp4-el) 26.0 ml/m\S\2 SV(sp2-el) 34.2 ml SI(sp2-el) 18.3 ml/m\S\2 Doppler Measurements and Calculations MV E max caroline 121.3 cm/sec MV P1/2t max caroline 130.7 cm/sec MV P1/2t 72.5 msec MVA(P1/2t) 3.0 cm\S\2 MV dec slope 528.0 cm/sec\S\2 MV dec time 0.16 sec Ao V2 max 157.7 cm/sec Ao max PG 10.0 mmHg Ao max PG (full) 8.5 mmHg NINO(V,A) 1.1 cm\S\2 NINO(V,D) 1.1 cm\S\2 LV V1 max PG 1.5 mmHg LV V1 max 60.4 cm/sec MR max caroline 454.3 cm/sec MR max PG 82.6 mmHg PA V2 max 76.5 cm/sec PA max PG 2.3 mmHg TR max caroline 333.5 cm/sec
[2016-06-24] MEDS: METOPROLOL SUCC 50MG EXT REL TAB PO SCH (20:36)
[2016-06-24] MEDS: CLONIDINE HCL 0.3 MG TAB PO SCH (20:36)
[2016-06-25] VITALS (9 sets, daily range): BP systolic 149–186; BP diastolic 88–106; PULSE 77–88; TEMP 36.4–37; O2SAT 90–95
[2016-06-25 07:42] LABS: MEAN CELL VOLUME 89.2 fL (80-100); MEAN CORPUSCULAR HEMOGLOBIN 30.6 pg (25-34); MEAN CORPUSCULAR HGB CONC 34.3 g/dl (32-36); MEAN PLATELET VOLUME 11.6 fL (7.4-10.4); PLATELET COUNT 143 K/uL (130-400); RED BLOOD COUNT 4.71 M/uL (4.2-5.4); WHITE BLOOD COUNT 7.74 K/uL (4.8-10.8)
[2016-06-25 08:17] LABS: BUN/CREATININE RATIO 22.8 (10-20); CALCIUM 9.6 mg/dl (8.5-10.1); CREATININE 1.7 mg/dl (0.60-1.20); POTASSIUM 3.9 mmol/L (3.5-5.1)
[2016-06-25] MEDS: TIOTROPIUM BROMIDE 5 PUFF/90 MCG INH INH SCH (08:34)
[2016-06-25] MEDS: CLONIDINE HCL 0.3 MG TAB PO SCH ×2 (08:36→20:44)
[2016-06-25] MEDS: LEVETIRACETAM 500 MG TAB PO SCH ×2 (08:37→20:44)
[2016-06-25] MEDS: FAMOTIDINE 20 MG TAB PO SCH (08:37)
[2016-06-25] MEDS: AMLODIPINE BESYLATE 5 MG TAB PO SCH (08:38)
[2016-06-25] MEDS: FUROSEMIDE 40 MG TAB PO SCH (08:38)
[2016-06-25] MEDS: METOPROLOL SUCC 25MG EXT REL TAB PO SCH (08:39)
[2016-06-25] MEDS: ALLOPURINOL 300 MG TAB PO SCH (08:39)
[2016-06-25] MEDS: POTASSIUM CHLORIDE 10 MEQ TABCR PO SCH (08:39)
--- NOTE | 2016-06-25 09:25 | PROGRESS NOTE ---
DATE: 06/25/2016 DATE: 06/25/2016. HISTORY OF PRESENT ILLNESS: I am seeing Mrs. Sullivan in followup. She has a history of hypertensive hemorrhage in the right occipital lobe with evidence of amyloid. Since she had the hemorrhage she has had a relatively asymptomatic right cerebellar infarct and query a tiny lacune in the left periventricular on this hospitalization. Her blood pressure was better controlled overnight. Lowest blood pressure noted was approximately 149/88. Most recent 36.5, 88, 186/98. The patient has no headache. She is awake and alert. Normal speech and language. Affect is appropriate. There are normal visual dasilva, facial symmetry, no asymmetric weakness. Her gait is very slow. She does admit to some imbalance in the last several months. IMPRESSION: The patient likely has amyloid angiopathy. Her most recent CT on admission, still shows some residual but resolving blood products. She has had very difficult to control high blood pressure and radiographically has had 1 or 2 infarcts since her last admission. I would recommend a repeat CT of the head within the next 3-4 weeks. If the hemorrhage has resolved and her blood pressure is reasonably well controlled, one could consider restarting aspirin 81 mg. The patient should see Dr. Rosas in followup. CELSO
--- NOTE | 2016-06-25 11:19 | Progress Note ---
Internal Med Progress Note Date of Service: Jun 25, 2016. Provider Documentation: SUBJECTIVE: Patient c/o GI upset- gurgling in stomach No localized weakness, nausea, vomiting, numbness/tingling, slurred speech, facial asymmetry No chest pain, sob, fever,chills. BP continues to be elevated OBJECTIVE: Vital Signs-as noted below Exam: General-AAOX3, Obese + Not in distress Neck-Supple, No JVD Lungs-AEBE decreased, no wheezing Heart-S1, S2 normal, no murmur Abdomen-Soft, non tender, non distended, BS present Extremities-No edema Neuro-AAOX3, Power=- 5/5 all ext, Cranial nerves intact Lab data as noted below. Diagnostic Radiology CT HEAD IMPRESSION: 1. Right cerebellar infarct which appears better defined than on the preceding study 2. Resolving right occipital lobe hemorrhage 3. Old lacunar infarct involving the right basal ganglia and left external capsule 4. No evidence of acute hemorrhage. 5. Extensive white matter disease MRA HEAD IMPRESSION: 1. 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 2. Moderate to moderately significant arterial occlusive change throughout all major components of the anterior middle and posterior cerebral circulation. 3. Compromised evaluation due to motion artifact. MRI BRAIN IMPRESSION: 1. Punctate focus of possible restricted diffusion within the periventricular white matter of the left parietal lobe. This could represent an acute to subacute infarct versus T2 shine through. 2. Small focus of subacute to old hemorrhage within the periventricular white matter of the right occipital lobe which is unchanged from the prior head CT. 3. Additional scattered punctate foci of susceptibility artifact within the brain consistent with amyloid angiopathy. ASSESSMENT & PLAN: Assessment and Plan : HYPERTENSIVE URGENCY: Likely secondary to Non compliance with medications - Clonidine, Metoprolol causing rebound hypertension. Has had difficulty maintaining BP within goal in past -Restarted home medications - Clonidine 0.2 mg PO BID , Metoprolol 125 mg, Lasix 40 mg daily. Added Amlodipine 10 mg, Hydralazine 25 mg PO BID , Increased Clonidine to 0.3 mg PO BID since admission. IV Hydralazine 10 mg q 8 hours PRN for SBP > 180 -Work up- CT scan- Improving occipital hemorrhage. Neurology recommends repeat CT scan head in 3-4 weeks -Will consult nephrology to help with uncontrolled hypertension, vaishali with prior hx of difficulty controlling it, hx of amyloid angiopathy with ICH in 03/16 and need to re start ASA in future. POSSIBLE CEREBELLAR INFARCT per Imaging -Patient denies any signs of stroke, per CT scan head- improving right occipital hemorrhage, better defined right cerebellar infarct, old lacunar infarcts- per admitting physician discussion with radiologist- these are all chronic findings. MRI brain - 1. Punctate focus of possible restricted diffusion within the periventricular white matter of the left parietal lobe. This could represent an acute to subacute infarct versus T2 shine through. -Not on ASA given recent hemorrhage 03/16 -Work up- MRA Brain- 1. 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 2. Moderate to moderately significant arterial occlusive change throughout all major components of the anterior middle and posterior cerebral circulation; US carotid - Significant plaque bilaterally, No significant stenosis, Echo- pending, LDL- 108 -Neurology consulted. Plan is repeat CT scan head in 3-4 weeks, once BP is controlled- consider starting ASA 81 mg daily HX NON TRAUMATIC INTRACEREBRAL HEMORRHAGE, SEIZURE - occurred in the setting of Coumadin use and severe HTN in 03/16 - was treated conservatively however patient did suffer seizure x 1 - no antiplatelets/anticoagulation for now. But as above, per neurology will benefit from ASA 81 mg daily once repeat CT scan in 3-4 weeks for f/u ICH, BP controlled given infarcts and A fib history as above. - continue Keppra -Appreciate neurology inputs CKD-III Baseline : 1.7 Near baseline -Monitor while on lasix CHRONIC DIASTOLIC CHF - appears euvolemic - continue furosemide 40 mg daily - echo 06/2014 - EF 55-60%, diastolic dysfunction ATRIAL FIBRILLATION - rate controlled on beta marlee, will continue - no anticoagulation due to intracerebral hemorrhage DVT PROPHYLAXIS - SCDs due to hx intracerebral hemorrhage DISPOSITION Continue with tele monitoring, BP monitoring PT/OT Needs BP monitoring Vital Signs: Date Time Temp Pulse Resp B/P Pulse Ox O2 Delivery O2 Flow Rate FiO2 06/25/16 07:55 Nasal Cannula 2.0 06/25/16 07:29 36.5 88 20 186/98 91 Room Air 06/25/16 04:00 Room Air 06/25/16 03:00 37.0 82 22 159/93 93 Room Air 06/25/16 00:19 77 149/88 06/25/16 00:01 Room Air 06/24/16 23:45 36.8 78 22 186/108 96 Room Air 06/24/16 20:00 Room Air 06/24/16 19:34 36.6 72 18 155/99 94 Room Air 06/24/16 17:26 79 160/90 06/24/16 16:00 98 Room Air 06/24/16 15:46 36.4 73 20 179/82 98 Room Air 06/24/16 12:00 Room Air 06/24/16 11:36 36.4 74 18 187/124 95 Room Air 188/104 Lab Results: Results Past 24 Hours Test 06/24/16 16:02 06/24/16 19:59 06/25/16 06:06 06/25/16 06:50 Range/Units Bedside Glucose 122 132 115 70-90 mg/dl White Blood Count 7.74 4.8-10.8 K/uL Red Blood Count 4.71 4.2-5.4 M/uL Hemoglobin 14.4 12.0-16.0 g/dL Hematocrit 42.0 37-47 % Mean Corpuscular Volume 89.2 80-100 fL Mean Corpuscular Hemoglobin 30.6 25-34 pg Mean Corpuscular Hemoglobin Concent 34.3 32-36 g/dl RDW Standard Deviation 46.1 36.4-46.3 fL RDW Coefficient of Variation 14.0 11.5-14.5 % Platelet Count 143 130-400 K/uL Mean Platelet Volume 11.6 7.4-10.4 fL Sodium Level 138 136-145 mmol/L Potassium Level 3.9 3.5-5.1 mmol/L Chloride Level 99 98-107 mmol/L Carbon Dioxide Level 31 21-32 mmol/L Anion Gap 8.0 3-11 mmol/L Blood Urea Nitrogen 39 7-18 mg/dl Creatinine 1.70 0.60-1.20 mg/dl Est Creatinine Clear Calc Drug Dose 33.0 ml/min Estimated GFR () 34.3 Estimated GFR (Non- 29.6 BUN/Creatinine Ratio 22.8 10-20 Random Glucose 111 70-99 mg/dl Calcium Level 9.6 8.5-10.1 mg/dl
[2016-06-25] MEDS: METOPROLOL SUCC 50MG EXT REL TAB PO SCH (20:44)
[2016-06-26] VITALS (10 sets, daily range): BP systolic 148–180; BP diastolic 88–118; PULSE 68–92; TEMP 36.2–36.6; O2SAT 93–100
[2016-06-26 06:30] LABS: BUN/CREATININE RATIO 21.4 (10-20); CALCIUM 9.5 mg/dl (8.5-10.1); CREATININE 1.8 mg/dl (0.60-1.20); POTASSIUM 3.3 mmol/L (3.5-5.1)
[2016-06-26] MEDS: TIOTROPIUM BROMIDE 5 PUFF/90 MCG INH INH SCH (07:53)
[2016-06-26] MEDS: AMLODIPINE BESYLATE 5 MG TAB PO SCH (07:55)
[2016-06-26] MEDS: CLONIDINE HCL 0.3 MG TAB PO SCH ×2 (07:56→20:39)
[2016-06-26] MEDS: POTASSIUM CHLORIDE 10 MEQ TABCR PO SCH (07:56)
[2016-06-26] MEDS: FUROSEMIDE 40 MG TAB PO SCH (07:56)
[2016-06-26] MEDS: LEVETIRACETAM 500 MG TAB PO SCH ×2 (07:56→20:39)
[2016-06-26] MEDS: METOPROLOL SUCC 25MG EXT REL TAB PO SCH (07:57)
[2016-06-26] MEDS: FAMOTIDINE 20 MG TAB PO SCH (07:57)
[2016-06-26] MEDS: ALLOPURINOL 300 MG TAB PO SCH (07:58)
--- NOTE | 2016-06-26 09:35 | PROGRESS NOTE ---
DATE: 06/26/2016 SUBJECTIVE: I am seeing Mrs. Sullivan in followup of a right occipital hemorrhage and what is likely amyloid angiopathy. She presented to our facility with severe hypertension and headache. CT showing a new infarct in the right cerebellum compared to imaging in a facility in March, but not an acute infarct. Her MRI confirmed that that was an old right cerebellar infarct and there is a new diffusion weighted abnormality in the left periventricular region. Both on CAT scan which showed some residual but resolving blood and on MRI, there is evidence of hemorrhage and on GRE imaging there is evidence of micro hemorrhages. Her blood pressure has been variable. She has no further headache. OBJECTIVE: VITAL SIGNS: 36.4, 72, 19, 178/100, 100% O2 sat on room air. GENERAL: The patient is awake and alert. There is normal speech and language. Her affect is appropriate. She is standing in the room brushings her dentures. IMPRESSION: Right occipital hemorrhage while the patient was on aspirin and Coumadin with a subtherapeutic INR. This is probably polyfactorial including hypertensive; however, likely the patient has amyloid angiopathy. Since she has been imaged last, she has had 1 radiographic stroke and a tiny area of diffusion weighted abnormality. As there is still some residual blood on most recent CAT scan, I would recommend that she see have a follow up CAT scan of the head in 3-4 weeks, and if the hemorrhage has resolved consider using aspirin. I spoke to the patient and her daughter at length on Monday regarding the risk, benefit ratio and this is quite difficult, but we do know that she has not had recurrent hemorrhage and yet she has had a recurrent stroke. A followup with Dr. Rosas postdischarge to be made. CELSO
[2016-06-26] MEDS: HydrALAZINE HCL 20 MG/ML VIAL IV. PRN (11:14)
--- NOTE | 2016-06-26 14:54 | Progress Note ---
Internal Med Progress Note Date of Service: Jun 26, 2016. Provider Documentation: SUBJECTIVE: Patient is anxious and wants to be discharged. No localized weakness, nausea, vomiting, numbness/tingling, slurred speech, facial asymmetry No chest pain, sob, fever,chills. BP - still high OBJECTIVE: Vital Signs-as noted below Exam: General-AAOX3, Obese + Frustrated Neck-Supple, No JVD Lungs-AEBE decreased, no wheezing Heart-S1, S2 normal, no murmur Abdomen-Soft, non tender, non distended, BS present Extremities-No edema Neuro-AAOX3, Power=- 5/5 all ext, Cranial nerves intact Lab data as noted below. Diagnostic Radiology CT HEAD IMPRESSION: 1. Right cerebellar infarct which appears better defined than on the preceding study 2. Resolving right occipital lobe hemorrhage 3. Old lacunar infarct involving the right basal ganglia and left external capsule 4. No evidence of acute hemorrhage. 5. Extensive white matter disease MRA HEAD IMPRESSION: 1. 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 2. Moderate to moderately significant arterial occlusive change throughout all major components of the anterior middle and posterior cerebral circulation. 3. Compromised evaluation due to motion artifact. MRI BRAIN IMPRESSION: 1. Punctate focus of possible restricted diffusion within the periventricular white matter of the left parietal lobe. This could represent an acute to subacute infarct versus T2 shine through. 2. Small focus of subacute to old hemorrhage within the periventricular white matter of the right occipital lobe which is unchanged from the prior head CT. 3. Additional scattered punctate foci of susceptibility artifact within the brain consistent with amyloid angiopathy. ASSESSMENT & PLAN: Assessment and Plan : HYPERTENSIVE URGENCY: Per patient, she says her BP has always been high in the range of 170-180/90- 100s in past and very difficult to control. She was not sure whether she was taking her clonidine / metoprolol (daughter helps her with medications) -Home meds: Clonidine 0.2 mg PO BID , Metoprolol 125 mg, Lasix 40 mg daily. -During this hospital course- increased clonidine to 0.3 mg PO BID, Added hydralazine 25 mg BID--> Increased to TID, Added amlodipine 10 mg . IV Hydralazine 10 mg q 8 hours PRN for SBP > 180 -Work up- CT scan- Improving occipital hemorrhage. Neurology recommends repeat CT scan head in 3-4 weeks -Consulted nephrology to help with uncontrolled hypertension, vaishali with prior hx of difficulty controlling it, hx of amyloid angiopathy with ICH in 03/16 and need to re start ASA in future. POSSIBLE CEREBELLAR INFARCT per Imaging -Patient denies any signs of stroke, per CT scan head- improving right occipital hemorrhage, better defined right cerebellar infarct, old lacunar infarcts- per admitting physician discussion with radiologist- these are all chronic findings. MRI brain - 1. Punctate focus of possible restricted diffusion within the periventricular white matter of the left parietal lobe. This could represent an acute to subacute infarct versus T2 shine through. -Not on ASA given recent hemorrhage 03/16 -Work up- MRA Brain- 1. 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 2. Moderate to moderately significant arterial occlusive change throughout all major components of the anterior middle and posterior cerebral circulation; US carotid - Significant plaque bilaterally, No significant stenosis, Echo- pending, LDL- 108 -Neurology consulted. Plan is repeat CT scan head in 3-4 weeks, once BP is controlled- consider starting ASA 81 mg daily HX NON TRAUMATIC INTRACEREBRAL HEMORRHAGE, SEIZURE - occurred in the setting of Coumadin use and severe HTN in 03/16 - was treated conservatively however patient did suffer seizure x 1 - no antiplatelets/anticoagulation for now. But as above, per neurology will benefit from ASA 81 mg daily once repeat CT scan in 3-4 weeks for f/u ICH, BP controlled given infarcts and A fib history as above. - continue Keppra -Appreciate neurology inputs CKD-III Baseline : 1.7 Near baseline -Monitor while on lasix CHRONIC DIASTOLIC CHF - appears euvolemic - continue furosemide 40 mg daily - echo 06/2014 - EF 55-60%, diastolic dysfunction ATRIAL FIBRILLATION - rate controlled on beta marlee, will continue - no anticoagulation due to intracerebral hemorrhage DVT PROPHYLAXIS - SCDs due to hx intracerebral hemorrhage DISPOSITION Continue with tele monitoring, BP monitoring PT/OT Needs BP monitoring as very difficult to control and refractory to rx Vital Signs: Date Time Temp Pulse Resp B/P Pulse Ox O2 Delivery O2 Flow Rate FiO2 06/26/16 13:00 178/118 06/26/16 11:44 97 Room Air 06/26/16 11:42 36.4 68 20 180/105 97 Room Air 06/26/16 07:45 36.4 72 19 178/100 100 Room Air 06/26/16 07:42 100 Room Air 06/26/16 04:12 36.6 92 20 177/89 95 Nasal Cannula 06/26/16 04:00 Room Air 06/25/16 23:51 Room Air 06/25/16 23:00 36.5 85 20 175/93 93 Room Air 06/25/16 20:00 Room Air 06/25/16 19:07 36.4 79 20 174/106 90 Room Air 06/25/16 15:34 95 Room Air 06/25/16 15:14 36.5 79 16 166/103 95 Room Air Lab Results: Results Past 24 Hours Test 06/26/16 05:30 Range/Units Sodium Level 137 136-145 mmol/L Potassium Level 3.3 3.5-5.1 mmol/L Chloride Level 98 98-107 mmol/L Carbon Dioxide Level 34 21-32 mmol/L Anion Gap 5.0 3-11 mmol/L Blood Urea Nitrogen 39 7-18 mg/dl Creatinine 1.80 0.60-1.20 mg/dl Est Creatinine Clear Calc Drug Dose 31.1 ml/min Estimated GFR () 32.0 Estimated GFR (Non- 27.6 BUN/Creatinine Ratio 21.4 10-20 Random Glucose 118 70-99 mg/dl Calcium Level 9.5 8.5-10.1 mg/dl
[2016-06-26] MEDS ORDERED: POTASSIUM CHLORIDE 10 MEQ TABCR PO ONE (15:15)
[2016-06-26] MEDS: FUROSEMIDE INJ 40 MG in SYRINGE 0 ML IV SCH (15:43)
--- NOTE | 2016-06-26 16:12 | NEPHROLOGY CONSULTATION ---
DATE OF CONSULTATION: 06/26/2016 REASON FOR CONSULT: Acute renal failure and hypertensive urgency. HISTORY OF PRESENT ILLNESS: The patient is a 70-year-old white female who presented to the Emergency Department with headache and dizziness. She has a history of nontraumatic occipital hemorrhage in March 2016 in the setting of Coumadin therapy and severe hypertension. At that time she was even Life-Flighted and treated at [facility] in [place]. The patient has a longstanding history of hypertension, which has been very poorly controlled either secondary to side effects to the medicines or ineffective regimen. She was noted to have a blood pressure of 224/123 at the time of admission. She did have stroke at this time also, but not a major one and currently has no major deficit. The patient was recently seen by cardiology and has had changes made in her blood pressure medications. It appears amlodipine was stopped, metoprolol and clonidine was increased. Lasix was also added for the volume overload/edema. It does not appear the blood pressure was being controlled though. Since admission, she has been getting metoprolol as well as clonidine, amlodipine has been restarted, even now her blood pressure is high. The last blood pressure we have is 178/118. Creatinine on admission was 1.8 and since then has fluctuated, but remained fairly stable at about the same level. Potassium is slightly low at 3.3. PAST MEDICAL AND SURGICAL HISTORY: Atrial fibrillation, coronary artery disease, status post stent, chronic kidney disease, stage 3, COPD, depression, type 2 diabetes, dyslipidemia, hypertension, longstanding and very uncontrolled; gastroesophageal reflux disease, irritable bowel syndrome, intercerebral hemorrhage related to hypertension, sinus surgery, total left knee replacement, status post cholecystectomy. FAMILY HISTORY: Positive for stomach cancer. SOCIAL HISTORY: Never smoked. No alcohol. ALLERGIES: VERAPAMIL, UNKNOWN TYPE; LISINOPRIL, SHE HAD A COUGH. MEDICATIONS: At home reviewed, just prior to hospitalization she was taking clonidine 0.2 twice daily and metoprolol 125 twice daily. REVIEW OF SYSTEMS: Twelve point system was reviewed and unless stated otherwise in the HPI was negative. PHYSICAL EXAMINATION: GENERAL: Elderly white female who does not appear to be in any respiratory distress. She is awake, alert, oriented x3. She is pleasant. She is sitting in the recliner. HEENT: Atraumatic, normocephalic. NECK: Supple. No jugular venous distention. CHEST: Bilateral normal breath sounds, very occasional crackles at the bases. CARDIOVASCULAR: Heart rate fast around 100 per minute, 2+ lower extremity edema bilaterally. ABDOMEN: Soft, nontender. EXTREMITIES: 2+ edema. No calf tenderness. NEUROLOGIC: Normal speech. Moving all 4 extremities. Awake, alert, oriented x3. LABORATORY TESTS: Lab from this morning shows sodium 137, potassium 3.3, BUN 39, creatinine 1.8, hemoglobin is 14.4, platelet count 143. WBC count 7.7. Urinalysis shows negative blood, 1+ protein. MRI of the brain showed probable occlusion right artery, moderately severe significant arterial occlusive changes throughout the brain circulation. ASSESSMENT AND PLAN: A 70-year-old female who came in with hypertensive urgency, stroke and she now has a somewhat worse renal function than her baseline. 1. Renal failure. This is mostly chronic kidney disease related with her longstanding history of uncontrolled hypertension. The creatinine has not really changed for the last 3 days, so this may actually be her new baseline. We do not need to do any workup for her renal dysfunction as the etiology is obvious. 2. Hypertensive urgency. She has had 2 episodes of stroke in the last 3 months related with hypertensive urgency and it is incredibly important we bring the blood pressure down to at least 160. Her most recent outpatient regimen is clearly inadequate for hypertensive control, metoprolol is a very, very weak hypertensive agent. It is primarily a cardia selective drug and has almost no role in pure hypertension management. If agreeable to cardiology, I would change it to more blood pressure lowering beta-marlee like labetalol or carvedilol. 3. She does have significant lower extremity edema and I do not think she is adequately diuresed, unless we control her fluid overload she may never have a normal blood pressure. She needs to be aggressively diuresed even at the expense of slightly higher creatinine. I am significantly more concerned with her hypertensive urgency and multiple stroke than I would be with a slightly worse renal function. Give Lasix 40 mg IV now and daily while she is in the hospital as an outpatient. I would consider using a more potent diuretic either torsemide 40 mg daily or Lasix twice daily. 4. She has had side effect which I believe was lower extremity edema to amlodipine. She also has a side effect listed for verapamil. I would try with nifedipine 90 mg and continue to use diuretics for edema control. We may even have to use hydrochlorothiazide on top of loop diuretics. Continue with the clonidine 0.3 mg 3 times a day that is essentially the maximal dose, we can also consider using a clonidine patch as an outpatient. She is not on DEO or an ARB at this time either as an inpatient or as an outpatient. She had ALLERGY TO LISINOPRIL, but it does not mean she cannot have ARBs. As stated earlier, we need to bring her blood pressure down to 160 level with whatever agent we can use even at the expense of slightly worse renal function. MTDD
[2016-06-26] MEDS: METOPROLOL SUCC 50MG EXT REL TAB PO SCH (20:38)
[2016-06-27] VITALS (10 sets, daily range): BP systolic 120–176; BP diastolic 74–102; PULSE 67–89; TEMP 36.4–36.7; O2SAT 93–97
[2016-06-27] MEDS: TIOTROPIUM BROMIDE 5 PUFF/90 MCG INH INH SCH (08:36)
[2016-06-27] MEDS: FUROSEMIDE INJ 40 MG in SYRINGE 0 ML IV SCH (08:36)
[2016-06-27] MEDS: NIFEdipine 30 MG CR TAB PO SCH (08:37)
[2016-06-27] MEDS: CLONIDINE HCL 0.3 MG TAB PO SCH ×2 (08:38→21:49)
[2016-06-27] MEDS: LEVETIRACETAM 500 MG TAB PO SCH ×2 (08:38→21:08)
[2016-06-27] MEDS: ALLOPURINOL 300 MG TAB PO SCH (08:39)
[2016-06-27] MEDS: FAMOTIDINE 20 MG TAB PO SCH (08:39)
[2016-06-27] MEDS: METOPROLOL SUCC 25MG EXT REL TAB PO SCH (08:39)
[2016-06-27] MEDS: POTASSIUM CHLORIDE 10 MEQ TABCR PO SCH (08:40)
--- NOTE | 2016-06-27 10:30 | Clinical Documentation Query ---
CLINICAL DOCUMENTATION QUERY It appears per neurology is stating cerebral amyloid angioplasty as a contributing factor in patient's clinical picture. If this is true please document or state you agree with neurologist's diagnostic statement. In your clinical opinion is this patient being managed for: ( + ) Cerebral Amyloid Angioplasty ( ) Not Agree Please clarify and document your clinical opinion in the progress notes and discharge summary. Terms such as "probable", "suspected", "likely", "questionable", "possible", or "still to be ruled out" are acceptable. IF IN AGREEMENT, YOU MUST DOCUMENT ABOVE DIAGNOSTIC STATEMENT IN DAILY PROGRESS NOTES AND DISCHARGE SUMMARY. This document is not part of the patient's record. Thank You, Sidney Bowen, RN [phone]
--- NOTE | 2016-06-27 11:01 | Progress Note ---
Internal Med Progress Note Date of Service: Jun 27, 2016. Provider Documentation: SUBJECTIVE : Patient is anxious and wants to be discharged, but BP continues to be elevated in spite of multiple changes in medications. No localized weakness, nausea, vomiting, numbness/tingling, slurred speech, facial asymmetry No chest pain, sob, fever,chills. BP - still high OBJECTIVE: Vital Signs-as noted below Exam: General-AAOX3, Obese + Frustrated Neck-Supple, No JVD Lungs-AEBE decreased, no wheezing Heart-S1, S2 normal, no murmur Abdomen-Soft, non tender, non distended, BS present Extremities-B/L Edema- Lower extremity Neuro-AAOX3, Power=- 5/5 all ext, Cranial nerves intact Lab data as noted below. Diagnostic Radiology CT HEAD IMPRESSION: 1. Right cerebellar infarct which appears better defined than on the preceding study 2. Resolving right occipital lobe hemorrhage 3. Old lacunar infarct involving the right basal ganglia and left external capsule 4. No evidence of acute hemorrhage. 5. Extensive white matter disease MRA HEAD IMPRESSION: 1. 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 2. Moderate to moderately significant arterial occlusive change throughout all major components of the anterior middle and posterior cerebral circulation. 3. Compromised evaluation due to motion artifact. MRI BRAIN IMPRESSION: 1. Punctate focus of possible restricted diffusion within the periventricular white matter of the left parietal lobe. This could represent an acute to subacute infarct versus T2 shine through. 2. Small focus of subacute to old hemorrhage within the periventricular white matter of the right occipital lobe which is unchanged from the prior head CT. 3. Additional scattered punctate foci of susceptibility artifact within the brain consistent with amyloid angiopathy. ASSESSMENT & PLAN: Assessment and Plan : HYPERTENSIVE URGENCY: Refractory and difficult to control Per patient, she says her BP has always been high in the range of 170-180/90- 100s in past and very difficult to control. She was not sure whether she was taking her clonidine / metoprolol (daughter helps her with medications) properly -Home meds: Clonidine 0.2 mg PO BID , Metoprolol 125 mg, Lasix 40 mg daily. Amlodipine was recently dc due to leg swelling -During this hospital course- Increased clonidine to 0.3 mg PO BID, Added hydralazine 25 mg BID--> Increased to TID, Added amlodipine 10 mg & later changed to Nifedipine on 06/26 by nephrology, Lasix IV x 40 mg started by nephro on 06/26. IV Hydralazine 10 mg q 8 hours PRN for SBP > 180 -Work up- CT scan- Improving occipital hemorrhage. Neurology recommends repeat CT scan head in 3-4 weeks -Consulted nephrology to help with uncontrolled hypertension, vaishali with prior hx of difficulty controlling it, hx of amyloid angiopathy with ICH in 03/16 and need to re start ASA in future. PLAN: With above changes in medications, need to monitor BP over next 24 hours. Appreciate nephrology inputs- per d/w Dr Liu, may need to increase lasix to 40 mg BID POSSIBLE CEREBELLAR INFARCT per Imaging -Patient denies any signs of stroke, per CT scan head- improving right occipital hemorrhage, better defined right cerebellar infarct, old lacunar infarcts- per admitting physician discussion with radiologist- these are all chronic findings. MRI brain - 1. Punctate focus of possible restricted diffusion within the periventricular white matter of the left parietal lobe. This could represent an acute to subacute infarct versus T2 shine through. -Not on ASA given recent hemorrhage 03/16 -Work up- MRA Brain- 1. 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 2. Moderate to moderately significant arterial occlusive change throughout all major components of the anterior middle and posterior cerebral circulation; US carotid - Significant plaque bilaterally, No significant stenosis, Echo- pending, LDL- 108 -Neurology consulted. Plan is repeat CT scan head in 3-4 weeks, once BP is controlled- consider starting ASA 81 mg daily in future HX NON TRAUMATIC INTRACEREBRAL HEMORRHAGE, SEIZURE HX OF CEREBRAL AMYLOID ANGIOPATHY - Occurred in the setting of Coumadin use and severe HTN in 03/16. Was treated conservatively however patient did suffer seizure x 1 - no antiplatelets/anticoagulation for now. But as above, per neurology will benefit from ASA 81 mg daily once repeat CT scan in 3-4 weeks for f/u ICH, BP controlled given infarcts and A fib history as above. - continue Keppra -Appreciate neurology inputs CKD-III Baseline : 1.7 Near baseline -Monitor while on lasix CHRONIC DIASTOLIC CHF - At home on lasix 40 mg daily---> Changed to IV lasix for fluid removal to achieve better control of BP - Echo 06/2014 - EF 55-60%, diastolic dysfunction ATRIAL FIBRILLATION - Rate controlled on beta marlee, will continue - No anticoagulation due to intracerebral hemorrhage DVT PROPHYLAXIS - SCDs due to hx intracerebral hemorrhage DISPOSITION Continue with tele monitoring, BP monitoring PT/OT Needs BP monitoring as very difficult to control and refractory to rx with multiple changes in medications in past 2 days Vital Signs: Date Time Temp Pulse Resp B/P Pulse Ox O2 Delivery O2 Flow Rate FiO2 06/27/16 12:09 96 Room Air 06/27/16 10:43 36.5 73 20 158/84 96 Room Air 06/27/16 07:58 Room Air 06/27/16 07:14 36.6 78 20 171/93 97 Room Air 176/96 06/27/16 04:09 Room Air 06/27/16 03:35 36.5 67 20 164/93 95 Room Air 06/26/16 23:44 Room Air 06/26/16 23:36 36.3 75 17 165/90 96 Room Air 06/26/16 22:01 82 148/90 06/26/16 20:00 Room Air 06/26/16 19:10 36.2 85 20 173/97 93 Room Air Lab Results: Results Past 24 Hours Test 06/27/16 13:10 06/27/16 14:10 Range/Units Sodium Level 138 136-145 mmol/L Potassium Level 3.2 3.5-5.1 mmol/L Chloride Level 99 98-107 mmol/L Carbon Dioxide Level 30 21-32 mmol/L Anion Gap 9.0 3-11 mmol/L Blood Urea Nitrogen 40 7-18 mg/dl Creatinine 2.00 0.60-1.20 mg/dl Est Creatinine Clear Calc Drug Dose 27.6 ml/min Estimated GFR () 28.2 Estimated GFR (Non- 24.3 BUN/Creatinine Ratio 20.2 10-20 Random Glucose 135 70-99 mg/dl Calcium Level 9.4 8.5-10.1 mg/dl
[2016-06-27 13:55] LABS: BLOOD UREA NITROGEN 40 mg/dl (7-18); BUN/CREATININE RATIO 20.2 (10-20); CALCIUM 9.4 mg/dl (8.5-10.1); CARBON DIOXIDE 30 mmol/L (21-32); CHLORIDE 99 mmol/L (98-107); GLUCOSE 135 mg/dl (70-99); SODIUM 138 mmol/L (136-145)
--- NOTE | 2016-06-27 15:20 | Neurology Progress Notes ---
Neurology Progress Note Date of Service Jun 27, 2016. Kellee Mcdermott is a 70 year old female who has a PMH afib, IBS, depression, HTN, CAD, DL, CKD IV, COPD, DM2, CVA presents to the ER with headache. She has history of nontraumatic right occipital hemorrhage in 03/2016 in the setting of Coumadin therapy and severe hypertension. She was transferred to [place] she had a seizure. Her aspirin and coumadin was stopped. She it her head several days ago when she was getting into a car and states it has gotten worse. She has headache intermittently daily with associated dizziness.Since March her vision has been blurred and she can no longer read. Cardiology saw her recently and made some changes in her blood pressure medications. She has ongoing lower extremity edema has improved since initiation of Lasix. On admission her BP 224 /123. She states she is getting depressed and just wants to go home. denies current headache, SOB, abdominal pain, one sided weakness, numbness tingling, falls, N, V, increased blurred vision. Objective Date Time Temp Pulse Resp B/P Pulse Ox O2 Delivery O2 Flow Rate FiO2 06/27/16 12:09 96 Room Air 06/27/16 10:43 36.5 73 20 158/84 96 Room Air 06/27/16 07:58 Room Air 06/27/16 07:14 36.6 78 20 171/93 97 Room Air 176/96 06/27/16 04:09 Room Air 06/27/16 03:35 36.5 67 20 164/93 95 Room Air 06/26/16 23:44 Room Air 06/26/16 23:36 36.3 75 17 165/90 96 Room Air 06/26/16 22:01 82 148/90 06/26/16 20:00 Room Air 06/26/16 19:10 36.2 85 20 173/97 93 Room Air 06/26/16 16:13 Room Air 06/26/16 15:29 36.4 78 18 158/88 97 Room Air Last 24 Hours Test 06/27/16 13:10 06/27/16 14:10 Sodium Level 138 mmol/L Potassium Level mmol/L 3.2 mmol/L Chloride Level 99 mmol/L Carbon Dioxide Level 30 mmol/L Anion Gap 9.0 mmol/L Blood Urea Nitrogen 40 mg/dl Creatinine 2.00 mg/dl Est Creatinine Clear Calc Drug Dose 27.6 ml/min Estimated GFR () 28.2 Estimated GFR (Non- 24.3 BUN/Creatinine Ratio 20.2 Random Glucose 135 mg/dl Calcium Level 9.4 mg/dl Imaging: no new imaging Exam: Physical Exam: Constitutional: appearance nourished, healthy and obese Ears, Nose, Mouth and Throat: mucous membranes moist, no injection and skin normal, eyes normal Cardiovascular: normal irregular Respiratory: clear to auscultation (CTA) Musculoskeletal: 2+ peripheral edema Skin: no stigmata of neurocutaneous disease noted and normal and intact Eyes: extraocular muscles intact (EOMI) and pupils equal, round and reactive to light (PERRL) NEUROLOGIC EXAMINATION: Mental status: Alert and interactive Oriented 2017, at [facility] Oriented to person Speech fluent with no evidence of aphasia Cranial Nerves smile and eye brow raise symmetric Reflexes: Deep tendon reflexes were symmetrical and graded 2/5. Plantar responses were flexor. Sensory: to light touch Coordination: finger to nose without bi pass, no tremor Gait/Stance: Posture walks with walker tandem gait. forward leaning Strength: hand bag end sewer, biceps triceps 5/5 bilaterally, hip flex plantar flex ext 5/5 bilaterally Current Inpatient Medications Medications (Trade) Dose Ordered Sig/Nydia Route Start Time Stop Time Status Last Admin Dose Admin Acetaminophen (Tylenol Tab) 650 mg Q4H PRN PO 06/23/16 21:45 07/23/16 21:44 06/24/16 10:48 650 MG Ondansetron HCl (Zofran Inj) 4 mg Q6H PRN IV 06/23/16 21:45 07/23/16 21:44 Miscellaneous Information (Pharmacist Discharge Med Rec Consult) 1 ea UD PRN N/A 06/23/16 21:45 07/23/16 21:44 Allopurinol (Zyloprim Tab) 450 mg DAILY PO 06/24/16 09:00 07/24/16 08:59 06/27/16 08:39 450 MG Docusate Sodium (coLACE CAP) 100 mg BID PRN PO 06/23/16 22:15 07/23/16 22:14 Famotidine (Pepcid Tab) 20 mg DAILY PO 06/24/16 09:00 07/24/16 08:59 06/27/16 08:39 20 MG Albuterol/ Ipratropium (Duoneb) 1 ml QID PRN INH 06/23/16 22:15 07/23/16 22:14 Levetiracetam (Keppra Tab) 500 mg BID PO 06/24/16 09:00 07/24/16 08:59 06/27/16 08:38 500 MG Metoprolol Succinate (Toprol Xl Tab) 100 mg HS PO 06/23/16 23:00 07/23/16 22:59 06/26/16 20:38 100 MG Potassium Chloride (Klor-Con M10) 10 meq DAILY PO 06/24/16 09:00 07/24/16 08:59 06/27/16 08:40 10 MEQ Tiotropium [place] (Spiriva Handihaler Inhaler) 1 puff DAILY INH 06/24/16 09:00 07/24/16 08:59 06/25/16 08:34 1 PUFF Tramadol HCl (Ultram Tab) 50 mg Q8H PRN PO 06/23/16 22:15 07/23/16 22:14 Metoprolol Succinate (Toprol Xl Tab) 25 mg QAM PO 06/24/16 09:00 07/24/16 08:59 06/27/16 08:39 25 MG Hydralazine HCl (HydrALAZINE INJ) 10 mg Q6H PRN IV. 06/23/16 22:15 07/23/16 22:14 06/26/16 11:14 10 MG Clonidine HCl (Catapres Tab) 0.3 mg BID PO 06/24/16 21:00 07/24/16 20:59 06/27/16 08:38 0.3 MG Hydralazine HCl (Apresoline Tab) 25 mg TID PO 06/26/16 09:00 07/26/16 08:59 06/27/16 13:35 25 MG Nifedipine 90 mg 90 mg QAM PO 06/27/16 09:00 07/27/16 08:59 06/27/16 08:37 90 MG Furosemide/Syringe (Lasix Inj/ Syringe) 4 ml @ 4 mls/min DAILY IV 06/26/16 15:30 07/26/16 15:29 06/27/16 08:36 4 MLS/MIN Impression 70 year old female headache with elevated blood pressure Plan 1. MRI with evidence of amyloid 2. CT head with resolving IPH 3. afib - no coumadin or aspirin restarted after her IPH 4. continue Keppra 500 mg BID 5. HTN- nephro and cardiology involved, blood pressure improving 6. echo -resulted 7. PT/OT for discharge recommendations 8. fall precautions 9. neurology 2-3 weeks after discharge Saige August PAC, neurology 10. will start aspirin 81 mg daily once hemorrhage is cleared and blood pressure is under acceptable control I have seen and discussed above patient with Dr Saige Andrews, neurology DWAYNE Andrews MD
--- NOTE | 2016-06-27 16:18 | Nephrology Progress Note ---
Nephrology Progress Note Date of Service: Jun 27, 2016. Subjective sitting up in chair; ate full breakfast; has grove; no c/o pain; feels edema at baseline; limits to recall; seen on rounds this am 0830 and d/w hospitalist at that time Objective Date Time Temp Pulse Resp B/P Pulse Ox O2 Delivery O2 Flow Rate FiO2 06/27/16 12:09 96 Room Air 06/27/16 10:43 36.5 73 20 158/84 96 Room Air 06/27/16 07:58 Room Air 06/27/16 07:14 36.6 78 20 171/93 97 Room Air 176/96 06/27/16 04:09 Room Air 06/27/16 03:35 36.5 67 20 164/93 95 Room Air 06/26/16 23:44 Room Air 06/26/16 23:36 36.3 75 17 165/90 96 Room Air 06/26/16 22:01 82 148/90 06/26/16 20:00 Room Air 06/26/16 19:10 36.2 85 20 173/97 93 Room Air 06/26/16 16:13 Room Air Physical Exam: GENERAL: Elderly white female sitting up in chair on RA, nad; oriented x 3 but not reliable historian HEENT: Atraumatic, normocephalic. NECK: Supple. CHEST: diminished BL bases CARDIOVASCULAR: irregularly irregular, 2+ lower extremity edema bilaterally. ABDOMEN: Soft, nontender; grove present EXTREMITIES: no c/d NEUROLOGIC: Normal speech. Moving all 4 extremities. Awake, alert, oriented x3. Current Inpatient Medications Medications (Trade) Dose Ordered Sig/Nydia Route Start Time Stop Time Status Last Admin Dose Admin Acetaminophen (Tylenol Tab) 650 mg Q4H PRN PO 06/23/16 21:45 07/23/16 21:44 06/24/16 10:48 650 MG Ondansetron HCl (Zofran Inj) 4 mg Q6H PRN IV 06/23/16 21:45 07/23/16 21:44 Miscellaneous Information (Pharmacist Discharge Med Rec Consult) 1 ea UD PRN N/A 06/23/16 21:45 07/23/16 21:44 Allopurinol (Zyloprim Tab) 450 mg DAILY PO 06/24/16 09:00 3/26/17 08:59 06/27/16 08:39 450 MG Docusate Sodium (coLACE CAP) 100 mg BID PRN PO 06/23/16 22:15 07/23/16 22:14 Famotidine (Pepcid Tab) 20 mg DAILY PO 06/24/16 09:00 07/24/16 08:59 06/27/16 08:39 20 MG Albuterol/ Ipratropium (Duoneb) 1 ml QID PRN INH 06/23/16 22:15 07/23/16 22:14 Levetiracetam (Keppra Tab) 500 mg BID PO 06/24/16 09:00 07/24/16 08:59 06/27/16 08:38 500 MG Metoprolol Succinate (Toprol Xl Tab) 100 mg HS PO 06/23/16 23:00 07/23/16 22:59 06/26/16 20:38 100 MG Potassium Chloride (Klor-Con M10) 10 meq DAILY PO 06/24/16 09:00 07/24/16 08:59 06/27/16 08:40 10 MEQ Tiotropium [place] (Spiriva Handihaler Inhaler) 1 puff DAILY INH 06/24/16 09:00 07/24/16 08:59 06/25/16 08:34 1 PUFF Tramadol HCl (Ultram Tab) 50 mg Q8H PRN PO 06/23/16 22:15 07/23/16 22:14 Metoprolol Succinate (Toprol Xl Tab) 25 mg QAM PO 06/24/16 09:00 07/24/16 08:59 06/27/16 08:39 25 MG Hydralazine HCl (HydrALAZINE INJ) 10 mg Q6H PRN IV. 06/23/16 22:15 07/23/16 22:14 06/26/16 11:14 10 MG Clonidine HCl (Catapres Tab) 0.3 mg BID PO 06/24/16 21:00 07/24/16 20:59 06/27/16 08:38 0.3 MG Hydralazine HCl (Apresoline Tab) 25 mg TID PO 06/26/16 09:00 07/26/16 08:59 06/27/16 13:35 25 MG Nifedipine 90 mg 90 mg QAM PO 06/27/16 09:00 07/27/16 08:59 06/27/16 08:37 90 MG Furosemide/Syringe (Lasix Inj/ Syringe) 4 ml @ 4 mls/min DAILY IV 06/26/16 15:30 07/26/16 15:29 06/27/16 08:36 4 MLS/MIN Last 24 Hours Test 06/27/16 13:10 06/27/16 14:10 Sodium Level 138 mmol/L Potassium Level mmol/L 3.2 mmol/L Chloride Level 99 mmol/L Carbon Dioxide Level 30 mmol/L Anion Gap 9.0 mmol/L Blood Urea Nitrogen 40 mg/dl Creatinine 2.00 mg/dl Est Creatinine Clear Calc Drug Dose 27.6 ml/min Estimated GFR () 28.2 Estimated GFR (Non- 24.3 BUN/Creatinine Ratio 20.2 Random Glucose 135 mg/dl Calcium Level 9.4 mg/dl Assessment & Plan 70-year-old female admitted with hypertensive emergency, stroke with baseline creatinine 1.6-2.2 on outpt labs since 05/2015 and with creatinine currently at baseline. also with TTE showing moderate/severe pulmonary HTN w/ PASP 70 mm; severe biatrial enlargement; EF 50%; moderate CLVH 1. CKD3 presumably related to her longstanding history of uncontrolled hypertension, at baseline > recommend reestablish with Dr Wallace or with myself after hospital d/c for focus on BP control 2. Hypertensive emergency. She has had 2 strokes in the last 3 months related to hypertension and it is incredibly important we bring the blood pressure down to at least 160 systolic. >consider changing metoprolol to labetalol or coreg if cardiology agrees >low threshold to increase clonidine to 0.3 mg from bid to tid 3. significant lower extremity edema >increase lasix to 40 mg IV bid for now > could consider torsemide when changing to po depending on adherence and other parameters or plan lasix twice daily -continue nifedipine -lowered Na to 2 gm/daily on diet and started fluid limit 1.5L daily Appreciate consultation; will follow with you. Care coordinated w/ Dr Turcios
[2016-06-27] MEDS ORDERED: FUROSEMIDE INJ 40 MG in SYRINGE 0 ML IV ONE (16:30)
[2016-06-27] MEDS: METOPROLOL SUCC 50MG EXT REL TAB PO SCH (21:08)
[2016-06-28 00:01] VITALS: O2SAT 95
[2016-06-28 03:38] VITALS: BP 154/91; PULSE 79; TEMP 36.5; O2SAT 95
[2016-06-28 04:00] VITALS: O2SAT 95
[2016-06-28 06:56] LABS: BUN/CREATININE RATIO 22.6 (10-20); CALCIUM 9.5 mg/dl (8.5-10.1); CREATININE 1.8 mg/dl (0.60-1.20); POTASSIUM 3.2 mmol/L (3.5-5.1)
[2016-06-28] MEDS ORDERED: FUROSEMIDE INJ 40 MG in SYRINGE 0 ML IV SCH (07:00)
[2016-06-28 07:10] VITALS: BP 162/78; PULSE 82; TEMP 36.7; O2SAT 96
[2016-06-28] MEDS: TIOTROPIUM BROMIDE 5 PUFF/90 MCG INH INH SCH (08:26)
[2016-06-28] MEDS: CLONIDINE HCL 0.3 MG TAB PO SCH (08:27)
[2016-06-28] MEDS: METOPROLOL SUCC 25MG EXT REL TAB PO SCH (08:27)
[2016-06-28] MEDS: LEVETIRACETAM 500 MG TAB PO SCH (08:27)
[2016-06-28] MEDS: FAMOTIDINE 20 MG TAB PO SCH (08:28)
[2016-06-28] MEDS: NIFEdipine 30 MG CR TAB PO SCH (08:28)
[2016-06-28] MEDS: ALLOPURINOL 300 MG TAB PO SCH (08:30)
[2016-06-28] MEDS: POTASSIUM CHLORIDE 10 MEQ TABCR PO SCH (08:30)
--- NOTE | 2016-06-28 08:47 | Nephrology Progress Note ---
Nephrology Progress Note Date of Service: Jun 28, 2016. Subjective 70 yo female with ckd stage 4 at baseline creatinine with hx of stroke and hypertensive urgency. attempting to control bp with several bp medications and currently on iv diuretics as well to help with edema and bp control. pt comfortable and oob to chair. pt wants to go home. pt stated her father and the doctor said the bp medications ate away at his stomach, so she is apprehensive about the bp medications and pt states she is old and agrees that she has not been enthusiastic about her care. Objective Date Time Temp Pulse Resp B/P Pulse Ox O2 Delivery O2 Flow Rate FiO2 06/28/16 07:30 Room Air 06/28/16 07:10 36.7 82 20 162/78 96 Room Air 06/28/16 04:00 95 Room Air 06/28/16 03:38 36.5 79 17 154/91 95 Room Air 06/28/16 00:01 95 Room Air 06/27/16 23:15 36.4 89 17 143/88 95 Room Air 06/27/16 19:30 95 Room Air 06/27/16 19:15 36.7 82 21 145/82 95 Room Air 06/27/16 18:11 156/102 06/27/16 16:20 36.7 73 20 120/74 93 Room Air 06/27/16 16:00 96 Room Air 06/27/16 12:09 96 Room Air 06/27/16 10:43 36.5 73 20 158/84 96 Room Air Physical Exam: General-aaox3 Eyes-no scleral icterus ENT-mmm Neck-supple Lungs-cta Heart-rate controlled Abdomen-bs+ s/nt/nd Extremities-+2 edema Neuro-nonfocal Current Inpatient Medications Medications (Trade) Dose Ordered Sig/Nydia Route Start Time Stop Time Status Last Admin Dose Admin Acetaminophen (Tylenol Tab) 650 mg Q4H PRN PO 06/23/16 21:45 07/23/16 21:44 06/24/16 10:48 650 MG Ondansetron HCl (Zofran Inj) 4 mg Q6H PRN IV 06/23/16 21:45 07/23/16 21:44 Miscellaneous Information (Pharmacist Discharge Med Rec Consult) 1 ea UD PRN N/A 06/23/16 21:45 07/23/16 21:44 Allopurinol (Zyloprim Tab) 450 mg DAILY PO 06/24/16 09:00 07/24/16 08:59 06/28/16 08:30 450 MG Docusate Sodium (coLACE CAP) 100 mg BID PRN PO 06/23/16 22:15 07/23/16 22:14 Famotidine (Pepcid Tab) 20 mg DAILY PO 06/24/16 09:00 07/24/16 08:59 06/28/16 08:28 20 MG Albuterol/ Ipratropium (Duoneb) 1 ml QID PRN INH 06/23/16 22:15 07/23/16 22:14 Levetiracetam (Keppra Tab) 500 mg BID PO 06/24/16 09:00 07/24/16 08:59 06/28/16 08:27 500 MG Metoprolol Succinate (Toprol Xl Tab) 100 mg HS PO 06/23/16 23:00 07/23/16 22:59 06/27/16 21:08 100 MG Potassium Chloride (Klor-Con M10) 10 meq DAILY PO 06/24/16 09:00 07/24/16 08:59 06/28/16 08:30 10 MEQ Tiotropium [place] (Spiriva Handihaler Inhaler) 1 puff DAILY INH 06/24/16 09:00 07/24/16 08:59 06/25/16 08:34 1 PUFF Tramadol HCl (Ultram Tab) 50 mg Q8H PRN PO 06/23/16 22:15 07/23/16 22:14 06/27/16 23:31 50 MG Metoprolol Succinate (Toprol Xl Tab) 25 mg QAM PO 06/24/16 09:00 07/24/16 08:59 06/28/16 08:27 25 MG Hydralazine HCl (HydrALAZINE INJ) 10 mg Q6H PRN IV. 06/23/16 22:15 07/23/16 22:14 06/26/16 11:14 10 MG Clonidine HCl (Catapres Tab) 0.3 mg BID PO 06/24/16 21:00 07/24/16 20:59 06/28/16 08:27 0.3 MG Nifedipine 90 mg 90 mg QAM PO 06/27/16 09:00 07/27/16 08:59 06/28/16 08:28 90 MG Furosemide/Syringe (Lasix Inj/ Syringe) 4 ml @ 4 mls/min [id number] IV 06/28/16 07:00 07/28/16 06:59 06/28/16 06:32 4 MLS/MIN Potassium Chloride (Klor-Con M10) 40 meq NOW STAT PO 06/28/16 08:22 06/28/16 08:23 UNV Last 24 Hours Test 06/27/16 13:10 06/27/16 14:10 06/28/16 05:45 Sodium Level 138 mmol/L 141 mmol/L Potassium Level mmol/L 3.2 mmol/L 3.2 mmol/L Chloride Level 99 mmol/L 99 mmol/L Carbon Dioxide Level 30 mmol/L 33 mmol/L Anion Gap 9.0 mmol/L 9.0 mmol/L Blood Urea Nitrogen 40 mg/dl 41 mg/dl Creatinine 2.00 mg/dl 1.80 mg/dl Est Creatinine Clear Calc Drug Dose 27.6 ml/min 30.5 ml/min Estimated GFR () 28.2 32.0 Estimated GFR (Non- 24.3 27.6 BUN/Creatinine Ratio 20.2 22.6 Random Glucose 135 mg/dl 127 mg/dl Calcium Level 9.4 mg/dl 9.5 mg/dl Assessment & Plan CKD stage 4-creatinine at baseline of 1.6 to 2.2. attempting to control bp as well as possible to help preserve kidney function. HTN: currently on lasix 40 iv bid, nifedipine 90, clonidine 0.3 bid, metoprolol 25 in am and 100 at night. was on hydralazine but appears sensitive to the hydralazine and lowered bp more than we would like. stopped the hydralazine. bp appears to be at goal for now and will eventually lower bp more as an outpt. with the low k, could consider adding spironolactone to help preserve potassium. continue the iv diuretics for now, feel pt may be more fluid overloaded than appreciated and would control bp more through diuretics if she is agreeable. in the past, she did not want more diuretics secondary to increased urinary frequency. consider lasix 80mg po bid upon discharge with repeat bmp next monday. hypokalemia-repleting prn. Did speak to her about increasing her enthusiasm about the medications and controlling her bp better. did not appear to change her mentality. will continue to support and encourage her to the best of my abilities.
--- NOTE | 2016-06-28 09:21 | Progress Note ---
Internal Med Progress Note Date of Service: Jun 28, 2016. Provider Documentation: SUBJECTIVE : Patient is anxious and wants to be discharged, BP has improved No localized weakness, nausea, vomiting, numbness/tingling, slurred speech, facial asymmetry No chest pain, sob, fever,chills. BP - 150-160s as per goal OBJECTIVE: Vital Signs-as noted below Exam: General-AAOX3, Obese Neck-Supple, No JVD Lungs-AEBE decreased, no wheezing Heart-S1, S2 normal, no murmur Abdomen-Soft, non tender, non distended, BS present Extremities-B/L Edema- Lower extremity +2 Neuro-AAOX3, Power=- 5/5 all ext, Cranial nerves intact Lab data as noted below. Diagnostic Radiology CT HEAD IMPRESSION: 1. Right cerebellar infarct which appears better defined than on the preceding study 2. Resolving right occipital lobe hemorrhage 3. Old lacunar infarct involving the right basal ganglia and left external capsule 4. No evidence of acute hemorrhage. 5. Extensive white matter disease MRA HEAD IMPRESSION: 1. 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 2. Moderate to moderately significant arterial occlusive change throughout all major components of the anterior middle and posterior cerebral circulation. 3. Compromised evaluation due to motion artifact. MRI BRAIN IMPRESSION: 1. Punctate focus of possible restricted diffusion within the periventricular white matter of the left parietal lobe. This could represent an acute to subacute infarct versus T2 shine through. 2. Small focus of subacute to old hemorrhage within the periventricular white matter of the right occipital lobe which is unchanged from the prior head CT. 3. Additional scattered punctate foci of susceptibility artifact within the brain consistent with amyloid angiopathy. ASSESSMENT & PLAN: Assessment and Plan : HYPERTENSIVE URGENCY: Refractory and difficult to control Per patient, she says her BP has always been high in the range of 170-180/90- 100s in past and very difficult to control. She was not sure whether she was taking her clonidine / metoprolol (daughter helps her with medications) properly -Home meds: Clonidine 0.2 mg PO BID , Metoprolol 125 mg, Lasix 40 mg daily. Amlodipine was recently discontinued due to leg swelling -During this hospital course- Increased clonidine to 0.3 mg PO BID, Started hydralazine 25 mg BID--> Increased to TID later discontinued by nephrology as increased lasix dosing, Added amlodipine 10 mg & later changed to Nifedipine 90 mg on 2/26 by nephrology, Lasix IV x 40 mg started by nephro on 06/26--> increased to 40 mg BID on 06/27. BP is at goal now 150-160s. Better diuresis will help with control of BP. Recommendations from nephrology : Consider changing Metoprolol to Coreg for better BP control, Rather than increasing clonidine would focus more on better diuresis. Patient very anxious and frustrated due to prolonged stay for BP control. Will discharge her today and agreeable to outpatient follow ups and understands importance of taking medications regularly -Work up- CT scan- Improving occipital hemorrhage. Neurology recommends repeat CT scan head in 3-4 weeks -Consulted nephrology to help with uncontrolled hypertension, vaishali with prior hx of difficulty controlling it, hx of amyloid angiopathy with ICH in 03/16 and need to re start ASA in future. PLAN: Discharge today with Clonidine increased to 0.3 mg PO BID, Lasix 80 mg BID , Kdur 20 meq daily, Nifedipine 90 mg daily. Monitor BP very closely outpatient. Reenforcement of compliance with medications needed. POSSIBLE CEREBELLAR INFARCT per Imaging -Patient denies any signs of stroke, per CT scan head- improving right occipital hemorrhage, better defined right cerebellar infarct, old lacunar infarcts- per admitting physician discussion with radiologist- these are all chronic findings. MRI brain - 1. Punctate focus of possible restricted diffusion within the periventricular white matter of the left parietal lobe. This could represent an acute to subacute infarct versus T2 shine through. -Not on ASA given recent hemorrhage 03/16 -Work up- MRA Brain- 1. 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 2. Moderate to moderately significant arterial occlusive change throughout all major components of the anterior middle and posterior cerebral circulation; US carotid - Significant plaque bilaterally, No significant stenosis, Echo- pending, LDL- 108 -Neurology consulted. Plan is repeat CT scan head in 3-4 weeks, once BP is controlled- consider starting ASA 81 mg daily in future HX NON TRAUMATIC INTRACEREBRAL HEMORRHAGE, SEIZURE HX OF CEREBRAL AMYLOID ANGIOPATHY - Occurred in the setting of Coumadin use and severe HTN in 03/16. Was treated conservatively however patient did suffer seizure x 1 - no antiplatelets/anticoagulation for now. But as above, per neurology will benefit from ASA 81 mg daily once repeat CT scan in 3-4 weeks for f/u ICH, BP controlled given infarcts and A fib history as above. - continue Keppra -Appreciate neurology inputs CKD-III Baseline : 1.7 Near baseline -Monitor while on lasix Repeat BMP on monday07/04/16 CHRONIC DIASTOLIC CHF - At home on lasix 40 mg daily---> Changed to Lasix 80 mg PO BID for diuresis/ Better control of BP - Echo 06/2014 - EF 55-60%, diastolic dysfunction ATRIAL FIBRILLATION - Rate controlled on beta marlee, will continue - No anticoagulation due to intracerebral hemorrhage DVT PROPHYLAXIS - SCDs due to hx intracerebral hemorrhage DISPOSITION Eager to be discharged and wants to go home today PT/OT -cleared for discharge to hope Cleared by nephrology for discharge Ok to discharge home Vital Signs: Date Time Temp Pulse Resp B/P Pulse Ox O2 Delivery O2 Flow Rate FiO2 06/28/16 07:30 Room Air 06/28/16 07:10 36.7 82 20 162/78 96 Room Air 06/28/16 04:00 95 Room Air 06/28/16 03:38 36.5 79 17 154/91 95 Room Air 06/28/16 00:01 95 Room Air 06/27/16 23:15 36.4 89 17 143/88 95 Room Air 06/27/16 19:30 95 Room Air 06/27/16 19:15 36.7 82 21 145/82 95 Room Air 06/27/16 18:11 156/102 06/27/16 16:20 36.7 73 20 120/74 93 Room Air 06/27/16 16:00 96 Room Air 06/27/16 12:09 96 Room Air 06/27/16 10:43 36.5 73 20 158/84 96 Room Air Lab Results: Results Past 24 Hours Test 06/27/16 13:10 06/27/16 14:10 06/28/16 05:45 Range/Units Sodium Level 138 141 136-145 mmol/L Potassium Level 3.2 3.2 3.5-5.1 mmol/L Chloride Level 99 99 98-107 mmol/L Carbon Dioxide Level 30 33 21-32 mmol/L Anion Gap 9.0 9.0 3-11 mmol/L Blood Urea Nitrogen 40 41 7-18 mg/dl Creatinine 2.00 1.80 0.60-1.20 mg/dl Est Creatinine Clear Calc Drug Dose 27.6 30.5 ml/min Estimated GFR () 28.2 32.0 Estimated GFR (Non- 24.3 27.6 BUN/Creatinine Ratio 20.2 22.6 10-20 Random Glucose 135 127 70-99 mg/dl Calcium Level 9.4 9.5 8.5-10.1 mg/dl
[2016-06-28] MEDS ORDERED: CLON0.2T PO (09:25)
[2016-06-28] MEDS ORDERED: NIFE1TAB13 PO (09:25)
[2016-06-28] MEDS ORDERED: FRS/40 PO (09:25)
[2016-06-28] MEDS ORDERED: POTA10CA28 PO (09:25)
[2016-06-28] MEDS ORDERED: METO1TAB69 PO (09:25)
--- NOTE | 2016-06-28 09:29 | Discharge Instructions ---
Discharge Instructions Admission Reason for Admission: Hypertensive Urgency Discharge Discharge Diagnosis / Problem: 1. Hypertensive urgency 2. Possible cerebeller infarct Discharge Goals Goal(s): Improve disease control (as tolerated with assistance while walking), Diagnostic testing, Therapeutic intervention, Prevent Disease Progression Activity Recommendations Activity Limitations: resume your previous activity . Instructions / Follow-Up Instructions / Follow-Up MEDICATION CHANGES: 1. Increased clonidine to 0.3 mg PO BID from 0.2 mg PO BID 2. New medication: Nifedipine 90 mg daily 3. Metoprolol dosing prior to home was 125 mg and not 100 mg and thus need to continue taking 125 mg daily 4. Lasix dosing increased to 80 mg PO BID from 40 mg daily 5. Potassium supplement increased to 20 meq daily from 10 meq daily MONITOR Need BMP to be done on 07/04/16 and results to be conveyed to PCP/Human Service Technician Dr Wallace BP monitoring- readings to be taken to PCP/Nephrology during next visit CT scan head in 3-4 weeks per neurology FOLLOW UP 1. Dr Cerad on 07/05/16 at 10:[address] Wallace (Nephrology as scheduled) 3. Cardiology as per schedule - 07/14 at 10:15 AM with Wes Donohue 4. Neurology, Saige August PA-C in 2-3 weeks Current Hospital Diet Patient's current hospital diet: AHA Diet (Heart Healthy), Low Sodium Diet (2gm Na) Discharge Diet Recommended Diet: AHA Diet (Heart Healthy), Low Sodium Diet (2gm Na) Pending Studies Studies pending at discharge: no Laboratory Results Hemoglobin A1c Test 06/23/16 19:25 Range/Units Estimated Average Glucose 123 mg/dl Hemoglobin A1c 5.9 H 4.5-5.6 % Lipid Panel Test 06/24/16 05:25 Range/Units Triglycerides Level 106 0-150 mg/dl Cholesterol Level 174 0-200 mg/dl HDL Cholesterol 45 mg/dl Cholesterol/HDL Ratio 3.9 LDL Cholesterol, Calculated 108 mg/dl Medical Emergencies . Who to Call and When: Medical Emergencies: If at any time you feel your situation is an emergency, please call 911 immediately. . Non-Emergent Contact Non-Emergency issues call your: Primary Care Provider . . "Provider Documentation" section prepared by Esther Turcios. VTE Core Measure Inpt VTE Proph given/why not?: Contraindicated
[2016-06-28] MEDS ORDERED: POTASSIUM CHLORIDE 20 MEQ TABCR PO ONE (09:30)
--- NOTE | 2016-06-28 09:38 | Discharge Summary ---
Discharge Summary Date of Service Jun 28, 2016. Discharge Summary Admission Date: Jun 23, 2016 at 21:34 Discharge Date: Jun 28, 2016 Discharge Disposition: Home with services Principal Diagnosis: 1. Hypertensive urgency, difficult to control BP 2. Cerebellar infarct per Imaging, age indeterminate 3. Hx of cerebral amyloid angiopathy/ Hx of Intracranial hemorrhage 4. CHF, diastolic 5. Hypokalemia secondary to diuretics Secondary Diagnoses/Problems: 1. CKD-III 2. Atrial fibrillation 3. Obesity Procedures: Tele monitoring CT head MRI Brain MRA Head Carotid US Echocardiogram BP monitoring PT/OT Consultations: Nephrology Neurology Pending Studies/Follow-Up: Instructions / Follow-Up MEDICATION CHANGES: 1. Increased clonidine to 0.3 mg PO BID from 0.2 mg PO BID 2. New medication: Nifedipine 90 mg daily 3. Metoprolol dosing prior to home was 125 mg and not 100 mg and thus need to continue taking 125 mg daily 4. Lasix dosing increased to 80 mg PO BID from 40 mg daily 5. Potassium supplement increased to 20 meq daily from 10 meq daily -May consider starting ASA in future with infarcts noted on CT scan per neurology, but needs better BP control prior to starting it given high risk with hx of ICH in past. MONITOR Need BMP to be done on 07/04/16 and results to be conveyed to PCP/Calculus Teacher Dr Wallace BP monitoring- readings to be taken to PCP/Nephrology during next visit CT scan head in 3-4 weeks per neurology FOLLOW UP 1. Dr Cerda on 07/05/16 at 10:[address] Wallace (Nephrology as scheduled) 3. Cardiology as per schedule - 07/14 at 10:15 AM with Wes Donohue 4. Neurology, Saige August PA-C in 2-3 weeks Medication Reconciliation New Medications: Nifedipine (Adalat cc) 30 Mg Tab 90 MG PO QAM for 30 Days, #90 TAB Changed Medications: Clonidine Hcl (Catapres) 0.2 Mg Tab 0.3 MG PO BID for 30 Days, #90 TAB (Changed from: 0.2 MG) Furosemide (Lasix) 40 Mg Tab 80 MG PO BID for 30 Days, #120 TAB (Changed from: 40 MG; DAILY) Metoprolol Succ (Toprol Xl) (Toprol-Xl ) 100 Mg Tabcr 125 MG PO HS for 30 Days, #60 TAB (Changed from: 100 MG) Potassium Chloride (Micro-K Ext Rel) 10 Meq Capcr 20 MEQ PO DAILY for 30 Days, #60 CAP (Changed from: 10 MEQ) Continued Medications: Acetaminophen Tab (Tylenol) 325 Mg Tab 650 MG PO Q4 PRN for Pain, TAB Albuterol Hfa (Ventolin Hfa) 200 Puffs/59917 Mcg Aers 2 PUFFS INH Q4H PRN for SOB/Wheezing, #1 INHALER Allopurinol (Zyloprim) 300 Mg Tab 450 MG PO DAILY, 5 Refills 1.5 tablet dose Chlorhexidine Gluconate (Mouth (Periogard) 0.12 % Jennie 15 ML PO BID, #473 ML swish & spit Docusate Sodium (Docusate Sodium) 100 Mg Cap 1 CAP PO BID PRN for Constipation for 7 Days, #14 CAP Famotidine (Pepcid) 20 Mg Tab 20 MG PO DAILY, TAB Ipratropium-Albuterol (Duoneb) 3 Ml Nebu 1 TREATMENT INH QID PRN for SOB/Wheezing, INHA Levetiracetam (Keppra) 500 Mg Tab 500 MG PO BID, TAB Nitroglycerin (Nitrostat) 0.4 Mg Tab 0.4 MG UT UD PRN for Chest Pain, BTL Tiotropium [place] (Spiriva Handihaler) 30 Puff/540 Mcg Aerp 1 CAP INH DAILY for 30 Days, #30 CAP 3 Refills Tramadol (Ultram) 50 Mg Tab 50 MG PO Q8H PRN for Pain, TAB Admission Information HPI (per Admitting provider): 70 year old female who presents to the ER with headache. Patient has history of nontraumatic right occipital hemorrhage in 03/2016 in the setting of Coumadin therapy and severe hypertension. En route to [facility] patient had a seizure. Patient was treated conservatively and ASA and Coumadin were stopped. Patient reports 6 days ago while getting into the car the car door hit her in the head. She reports she has had a headache in the back of her head since that has been progressively getting worse. She also notes some intermittent pain across her forehead as well. She has had associated dizziness. She denies lightheadedness or syncopal events. Her vision has been intermittently blurry however it has been that was since the bleed in March. She denies any unilateral weakness, numbness, or tingling. No slurred speech, facial droop, or difficulty swallowing. Patient was seen by cardiology recently and has had changes made in her blood pressure medicines (discontinuation of amlodipine and increases in metoprolol succinate and clonidine) and addition of furosemide for volume overload. Daughter notes however that she has not been giving the patient the additional metoprolol that was prescribed. Patient denies chest pain. She has chronic exertional shortness of breath which is unchanged. Lower extremity edema has improved since initiation of Lasix. She denies abdominal pain, nausea, vomiting, and diarrhea. No fever or chills. She denies any urinary symptoms. On arrival, patient's BP 224/123. Patient was given Labetalol 20mg IV with improvement of BP. Patient reports her headache has resolved. Physical Exam (per Admitting): General Appearance: no apparent distress Head: normocephalic Eyes: normal inspection ENT: hearing grossly normal Neck: supple, no JVD Respiratory/Chest: lungs clear, normal breath sounds, no respiratory distress Cardiovascular: regular rate, rhythm, + pertinent finding (+1-2 edema BLLE) Abdomen/GI: normal bowel sounds, non tender, soft Extremities/Musculoskelatal: normal inspection, no calf tenderness Neurologic/Psych: no motor/sensory deficits, alert, normal mood/affect, oriented x 3 Skin: normal color, warm/dry Hospital Course Assessment and Plan : HYPERTENSIVE URGENCY: Refractory and difficult to control Per patient, she says her BP has always been high in the range of 170-180/90- 100s in past and very difficult to control. She was not sure whether she was taking her clonidine / metoprolol (daughter helps her with medications) properly -Home meds: Clonidine 0.2 mg PO BID , Metoprolol 125 mg, Lasix 40 mg daily. Amlodipine was recently discontinued due to leg swelling -During this hospital course- Increased clonidine to 0.3 mg PO BID, Started hydralazine 25 mg BID--> Increased to TID later discontinued by nephrology as increased lasix dosing, Added amlodipine 10 mg & later changed to Nifedipine 90 mg on 06/26 by nephrology, Lasix IV x 40 mg started by nephro on 06/26--> increased to 40 mg BID on 06/27. BP is at goal now 150-160s. Better diuresis will help with control of BP. Recommendations from nephrology : Consider changing Metoprolol to Coreg for better BP control, Rather than increasing clonidine would focus more on better diuresis. Patient very anxious and frustrated due to prolonged stay for BP control. Will discharge her today and agreeable to outpatient follow ups and understands importance of taking medications regularly -Work up- CT scan- Improving occipital hemorrhage. Neurology recommends repeat CT scan head in 3-4 weeks -Consulted nephrology to help with uncontrolled hypertension, vaishali with prior hx of difficulty controlling it, hx of amyloid angiopathy with ICH in 03/16 and need to re start ASA in future. PLAN: Discharge today with Clonidine increased to 0.3 mg PO BID, Lasix 80 mg BID , Kdur 20 meq daily, Nifedipine 90 mg daily. Monitor BP very closely outpatient. Reenforcement of compliance with medications needed. CEREBELLAR INFARCT, AGE INDETERMINATE per Imaging -Patient denies any signs of stroke, per CT scan head- improving right occipital hemorrhage, better defined right cerebellar infarct, old lacunar infarcts- per admitting physician discussion with radiologist- these are all chronic findings. MRI brain - 1. Punctate focus of possible restricted diffusion within the periventricular white matter of the left parietal lobe. This could represent an acute to subacute infarct versus T2 shine through. -Not on ASA given recent hemorrhage 03/16 -Work up- MRA Brain- 1. 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 2. Moderate to moderately significant arterial occlusive change throughout all major components of the anterior middle and posterior cerebral circulation; US carotid - Significant plaque bilaterally, No significant stenosis, Echo- pending, LDL- 108 -Neurology consulted. Plan is repeat CT scan head in 3-4 weeks, once BP is controlled- consider starting ASA 81 mg daily in future HX NON TRAUMATIC INTRACEREBRAL HEMORRHAGE, SEIZURE HX OF CEREBRAL AMYLOID ANGIOPATHY - Occurred in the setting of Coumadin use and severe HTN in 03/16. Was treated conservatively however patient did suffer seizure x 1 - no antiplatelets/anticoagulation for now. But as above, per neurology will benefit from ASA 81 mg daily once repeat CT scan in 3-4 weeks for f/u ICH, BP controlled given infarcts and A fib history as above. - continue Keppra -Appreciate neurology inputs CKD-III Baseline : 1.7 Near baseline -Monitor while on lasix Repeat BMP on monday07/04/16 CHRONIC DIASTOLIC CHF - At home on lasix 40 mg daily---> Changed to Lasix 80 mg PO BID for diuresis/ Better control of BP - Echo 06/2014 - EF 55-60%, diastolic dysfunction ATRIAL FIBRILLATION - Rate controlled on beta marlee, will continue - No anticoagulation due to intracerebral hemorrhage DVT PROPHYLAXIS - SCDs due to hx intracerebral hemorrhage DISPOSITION Eager to be discharged and wants to go home today PT/OT -cleared for discharge to [place] Cleared by nephrology for discharge Ok to discharge home Total time spent on discharge = 40 minutes This includes examination of the patient, discharge planning, medication reconciliation, and communication with other providers. Discharge Instructions Goal(s): Improve disease control (as tolerated with assistance while walking), Diagnostic testing, Therapeutic intervention, Prevent Disease Progression Activity Recommendations Activity Limitations: resume your previous activity . Instructions / Follow-Up Instructions / Follow-Up MEDICATION CHANGES: 1. Increased clonidine to 0.3 mg PO BID from 0.2 mg PO BID 2. New medication: Nifedipine 90 mg daily 3. Metoprolol dosing prior to home was 125 mg and not 100 mg and thus need to continue taking 125 mg daily 4. Lasix dosing increased to 80 mg PO BID from 40 mg daily 5. Potassium supplement increased to 20 meq daily from 10 meq daily MONITOR Need BMP to be done on 07/04/16 and results to be conveyed to PCP/Calculus Teacher Dr Wallace BP monitoring- readings to be taken to PCP/Nephrology during next visit CT scan head in 3-4 weeks per neurology FOLLOW UP 1. Dr Cerda on 07/05/16 at 10:[address] Wallace (Nephrology as scheduled) 3. Cardiology as per schedule - 07/14 at 10:15 AM with Wes Donohue 4. Neurology, Saige August PA-C in 2-3 weeks Current Hospital Diet Patient's current hospital diet: AHA Diet (Heart Healthy), Low Sodium Diet (2gm Na) Discharge Diet Recommended Diet: AHA Diet (Heart Healthy), Low Sodium Diet (2gm Na) Pending Studies Studies pending at discharge: no Laboratory Results Hemoglobin A1c Test 06/23/16 19:25 Range/Units Estimated Average Glucose 123 mg/dl Hemoglobin A1c 5.9 H 4.5-5.6 % Lipid Panel Test 06/24/16 05:25 Range/Units Triglycerides Level 106 0-150 mg/dl Cholesterol Level 174 0-200 mg/dl HDL Cholesterol 45 mg/dl Cholesterol/HDL Ratio 3.9 LDL Cholesterol, Calculated 108 mg/dl Medical Emergencies . Who to Call and When: Medical Emergencies: If at any time you feel your situation is an emergency, please call 911 immediately. . Non-Emergent Contact Non-Emergency issues call your: Primary Care Provider . . "Provider Documentation" section prepared by Esther Turcios. VTE Core Measure Inpt VTE Proph given/why not?: Contraindicated
[2016-06-28 10:21] VITALS: BP 162/78; PULSE 82; TEMP 36.7; O2SAT 96
[2016-07-20] MEDS ORDERED: LEVE500T13 PO (15:14)
[2016-07-20] MEDS ORDERED: LEVE500T PO (15:14)
[2016-07-20] MEDS ORDERED: ASPEC81 PO (15:14)
== END 2016-06-28 11:52 | disposition home health service (06) | DRG 545 ==
LOC: ENRESERVDT → ENRESERVTM → C.EDB 18:32 → C.2T 21:34
PROVIDERS: ADMIT Hospitalist; ATTEND Internal Medicine
DX: E85.4 Organ-limited amyloidosis (principal); I63.8 Other cerebral infarction; I50.32 Chronic diastolic (congestive) heart failure; N18.4 Chronic kidney disease, stage 4 (severe); I16.1 Hypertensive emergency; I13.0 Hypertensive heart and chronic kidney disease with heart failure and stage 1 through stage 4 chronic kidney disease, or unspecified chronic kidney disease; Z68.41 Body mass index [BMI] 40.0-44.9, adult; I16.0 Hypertensive urgency; I48.2 Chronic atrial fibrillation; I25.10 Atherosclerotic heart disease of native coronary artery without angina pectoris; J44.9 Chronic obstructive pulmonary disease, unspecified; E78.5 Hyperlipidemia, unspecified; E87.6 Hypokalemia; T50.2X5A Adverse effect of carbonic-anhydrase inhibitors, benzothiadiazides and other diuretics, initial encounter; E66.9 Obesity, unspecified; R79.1 Abnormal coagulation profile; K21.9 Gastro-esophageal reflux disease without esophagitis; E11.22 Type 2 diabetes mellitus with diabetic chronic kidney disease; Z96.652 Presence of left artificial knee joint; Z66 Do not resuscitate; Z86.79 Personal history of other diseases of the circulatory system; Z95.5 Presence of coronary angioplasty implant and graft; Z79.899 Other long term (current) drug therapy; Z79.891 Long term (current) use of opiate analgesic

== ENCOUNTER 2016-07-03 20:59 | Inpatient (IN) | payer OTHER ==
[~2016-07-03] VITALS: Ht 154.9 cm; Wt 97.0 kg
[~2016-07-03 20:59] MED LIST changes: +ACET325T96 PO; -ASPCH81X PO; +CHLO0.122 PO; -CLON0.1T12 PO; +CLON0.2T PO; +DOCU100C31 PO; +FAMO20TA11 PO; -HYDR-5688 PO; +LEVE500T13 PO; +METO100T44 PO; -METO50TA7 PO; +NIFE1TAB13 PO; +POTA10CA28 PO; -VALS40TA2 PO; -WARF5TAB7 PO
[2016-07-03] MEDS ORDERED: ONDANSETRON INJ 2 MG/ML 2 ML VIAL IV STA (22:04)
[2016-07-03] MEDS ORDERED: METOPROLOL TARTRATE 1 MG/ML VIAL IV STA (22:04)
[2016-07-03] MEDS ORDERED: POLY335019 PO (22:08)
[2016-07-03] MEDS ORDERED: CLONIDINE HCL 0.1 MG TAB PO ONE (22:15)
[2016-07-03] MEDS ORDERED: MoRPHine SULFATE 4 MG/ML 1 ML CARP\\VIAL IV PRN (22:15)
--- NOTE | 2016-07-03 22:34 | DIAGNOSTIC IMAGING REPORT ---
CHEST ONE VIEW PORTABLE CLINICAL HISTORY: EVALUATE ALTERED MENTAL STATUS/WEAKNESS dyspnea COMPARISON STUDY: 03/08/2016 FINDINGS: Cardiomegaly. Congestive heart failure. Diaphragms smooth. IMPRESSION: Congestive heart failure Electronically signed by: Wes Martinez M.D. 07/03/2016 10:33 PM Dictated Date/Time: 07/03/2016 10:32 PM
[2016-07-04] VITALS (13 sets, daily range): BP systolic 125–192; BP diastolic 75–141; PULSE 69–121; TEMP 36.8–38.6; O2SAT 90–100; Ht 154.9 cm; Wt 97.0 kg
--- NOTE | 2016-07-04 00:06 | EMERGENCY ROOM VISIT NOTE ---
History Report prepared by Ra: Court Zaragoza Under the Supervision of: Dr. Alan Vnetura D.O. First contact with patient: 21:42 Chief Complaint: ALTERED MENTAL STATUS Stated Complaint: DECREASED MENTAL STATUS, ABD PAIN Nursing Triage Summary: pt c/o left lower abdpain, vomiting and diarrhea. daughter reports pt has been intermittently confused recently. pt recently had a brain bleed in march and a another stroke last week. pt also has been being treated for HTN. History of Present Illness The patient is a 70 year old female who presents to the Emergency Room with complaints of intermittent altered mental status that was noticed by the patient 's daughter earlier today. The patient's daughter states that the patient is disoriented and drowsy. She has not noticed the patient slurring her speech. The patient has a history of a hemorrhagic stroke in March of 2016 and was diagnosed with a CVA on June 23, 2016. The patient is also experiencing constant non-radiating left lower quadrant abdominal pain that she states feels like menstrual cramps. Additionally, she is experiencing chills, decreased appetite, back pain, nausea, vomiting, and diarrhea. She denies fever, headache , chest pain, and shortness of breath. The patient states that she did not take her hypertension medications this morning but she is otherwise taking them like she is supposed to. Source of History: patient, family (daughter) Onset: earlier today Position: other (global) Quality: other (altered mental status) Timing: intermittent Associated Symptoms: + abdominal pain (LLQ, feels like menstrual cramps), + back pain, + chills, + diarrhea, + nausea, + vomiting, No SOB, No chest pain, No fevers, No headache Note: decreased appetite Review of Systems See HPI for pertinent positives & negatives. A total of 10 systems reviewed and were otherwise negative. Past Medical & Surgical Medical Problems: (1) Atrial fibrillation (2) CAD (coronary artery disease) (3) CKD (chronic kidney disease), stage IV (4) COPD, severe (5) Depression (6) DM type 2 (diabetes mellitus, type 2) (7) Dyslipidemia (8) Encephalopathy (9) GERD (gastroesophageal reflux disease) (10) History of intracranial hemorrhage (11) HTN (hypertension) (12) IBS (irritable bowel syndrome) (13) Nontraumatic intracerebral hemorrhage Surgical Problems: (1) H/O sinus surgery (2) History of total left knee replacement (3) S/P cholecystectomy Family History FH: stomach cancer FATHER Social History Smoking Status: Never Smoker Marital Status: Current/Historical Medications Scheduled Allopurinol (Zyloprim), 450 MG PO DAILY Chlorhexidine Gluconate (Mouth (Periogard), 15 ML PO BID Clonidine Hcl (Catapres), 0.3 MG PO BID Famotidine (Pepcid), 20 MG PO DAILY Furosemide (Lasix), 80 MG PO BID Levetiracetam (Keppra), 500 MG PO BID Metoprolol Succ (Toprol Xl) (Toprol-Xl ), 125 MG PO HS Nifedipine (Adalat cc), 90 MG PO QAM Potassium Chloride (Micro-K Ext Rel), 20 MEQ PO DAILY Tiotropium Burr (Spiriva Handihaler), 1 CAP INH DAILY Scheduled PRN Acetaminophen Tab (Tylenol), 650 MG PO Q4 PRN for Pain Docusate Sodium (Docusate Sodium), 1 CAP PO BID PRN for Constipation Nitroglycerin (Nitrostat), 0.4 MG UT UD PRN for Chest Pain Polyethylene Glycol 3350 (Miralax), 17 GM PO DAILY PRN for Constipation Tramadol (Ultram), 50 MG PO Q8H PRN for Pain Allergies Coded Allergies: Verapamil (Verified Allergy, Mild, UNKNOWN, 06/23/16) INFO FROM [facility] Lisinopril (Verified Adverse Reaction, Mild, COUGH, 06/23/16) Physical Exam Vital Signs Date Time Temp Pulse Resp B/P Pulse Ox O2 Delivery O2 Flow Rate FiO2 07/04/16 01:30 86 16 185/110 100 Nasal Cannula 2.0 07/04/16 01:04 80 07/04/16 01:00 85 16 192/104 100 Room Air 07/04/16 00:40 82 16 186/108 100 Nasal Cannula 2.0 07/04/16 00:28 88 20 198/108 100 07/04/16 00:19 84 16 194/108 100 Nasal Cannula 2.0 07/04/16 00:11 91 211/116 07/04/16 00:10 99 16 211/116 91 Room Air 07/03/16 23:49 89 16 217/118 97 Room Air 07/03/16 22:25 97 Room Air 07/03/16 22:25 97 Room Air 07/03/16 22:24 84 16 211/117 96 Room Air 07/03/16 21:27 84 07/03/16 21:04 36.6 84 20 229/124 99 Room Air Physical Exam GENERAL: Patient is awake, alert, and in no acute distress. Patient appears to be in pain. EYES: The conjunctivae are clear. The pupils are round and reactive. EARS, NOSE, MOUTH AND THROAT: The nose is without any evidence of any deformity. Mucous membranes are moist tongue is midline NECK: The neck is nontender and supple. RESPIRATORY: Normal respiratory effort is noted there is no evidence of wheezing rhonchi or rales CARDIOVASCULAR: Regular rate and irregular rhythm noted to auscultation. There are no definite murmurs. GASTROINTESTINAL: The abdomen is moderately distended but soft. Bowel sounds are present in all quadrants. Abdomen is diffusely tender to palpation. Mild guarding noted in the left lower quadrant. MUSCULOSKELETAL/EXTREMITIES: There is no evidence of gross deformity full range of motion is noted in the hips and shoulders SKIN: Trace pedal edema bilaterally. There are no signs of cellulitis. There is no obvious evidence of any rash. There are no petechiae, pallor or cyanosis noted. NEUROLOGIC: Patient is awake alert and oriented to person and place but not time. Strength is symmetric but diminished in both lower extremities. Medical Decision & Procedures ER Provider Diagnostic Interpretation: Radiology results as stated below per my review and radiologist interpretation: CHEST ONE VIEW PORTABLE IMPRESSION: Congestive heart failure Electronically signed by: Wes Martinez M.D. 07/03/2016 10:33 PM Dictated Date/Time: 07/03/2016 10:[address] the head was obtained in the emergency department. CT abdomen and pelvis was obtained in the emergency department. The reports reviewed. Preliminary Findings Only See Final Report For Complete Findings CT HEAD: Comparison: MR dated 06/24/[address] dated 06/23/2016. No significant change compared to CT dated 06/23/2016. No new ICH, evidence of acute territorial infarct, mass effect or midline shift. Stable small residual hemorrhage in the right occipital periventricular region. Atrophy and chronic small vessel ischemic disease. Stable chronic right cerebellar infarct and basal ganglia lacunar infarcts. CT ABDOMEN & PELVIS: Left renal enlargement compared to right with left perinephric stranding, possibly due to infection or other etiology. Recommend clinical correlation and correlation with urinalysis. No hydronephrosis or ureteral calculus seen. Scattered air-fluid levels in small bowel and colon. Correlate for diarrheal state which may be due to enteritis or other etiology. No evidence of bowel obstruction, significant bowel wall thickening, pneumatosis or free air. Appendix not visualized. Indeterminate left adrenal lesion measuring 2.3 cm. Recommend follow-up imaging with adrenal protocol CT or MRI. Small complex fat-containing umbilical hernia. There is minimal stranding versus vessels within the inferior portion of the hernia. Correlate clinically for associated symptoms. INCIDENTAL FINDINGS: Cardiomegaly. Cholecystectomy. Small nonobstructive right renal calculus. Few colonic diverticula without evidence of acute diverticulitis. Atherosclerotic vascular disease. Osseous degenerative changes. Radiologist: Vanda Perez MD Laboratory Results 07/04/16 00:05 Red Blood Count 4.87, Mean Corpuscular Volume 88.1, Mean Corpuscular Hemoglobin 31.6, Mean Corpuscular Hemoglobin Concent 35.9, Mean Platelet Volume 12.2, Neutrophils (%) (Auto) 77.9, Lymphocytes (%) (Auto) 10.7, Monocytes (%) (Auto) 10.9, Eosinophils (%) (Auto) 0.1, Basophils (%) (Auto) 0.1, Neutrophils # (Auto ) 13.07, Lymphocytes # (Auto) 1.79, Monocytes # (Auto) 1.83, Eosinophils # (Auto ) 0.01, Basophils # (Auto) 0.02 Test 07/04/16 00:05 White Blood Count 16.77 K/uL (4.8-10.8) Red Blood Count 4.87 M/uL (4.2-5.4) Hemoglobin 15.4 g/dL (12.0-16.0) Hematocrit 42.9 % (37-47) Mean Corpuscular Volume 88.1 fL (80-100) Mean Corpuscular Hemoglobin 31.6 pg (25-34) Mean Corpuscular Hemoglobin Concent 35.9 g/dl (32-36) Platelet Count 156 K/uL (130-400) Mean Platelet Volume 12.2 fL (7.4-10.4) Neutrophils (%) (Auto) 77.9 % Lymphocytes (%) (Auto) 10.7 % Monocytes (%) (Auto) 10.9 % Eosinophils (%) (Auto) 0.1 % Basophils (%) (Auto) 0.1 % Neutrophils # (Auto) 13.07 K/uL (1.4-6.5) Lymphocytes # (Auto) 1.79 K/uL (1.2-3.4) Monocytes # (Auto) 1.83 K/uL (0.11-0.59) Eosinophils # (Auto) 0.01 K/uL (0-0.5) Basophils # (Auto) 0.02 K/uL (0-0.2) RDW Standard Deviation 44.6 fL (36.4-46.3) RDW Coefficient of Variation 13.9 % (11.5-14.5) Immature Granulocyte % (Auto) 0.3 % Immature Granulocyte # (Auto) 0.05 K/uL (0.00-0.02) Prothrombin Time 10.7 SECONDS (9.0-12.0) Prothromb Time International Ratio 1.0 (0.9-1.1) Activated Partial Thromboplast Time 27.0 SECONDS (21.0-31.0) Partial Thromboplastin Ratio 1.0 Bedside Lactic Acid Venous 1.15 mmol/L (0.90-1.70) Phosphorus Level 3.4 mg/dl (2.5-4.9) Magnesium Level 3.5 mg/dl (1.8-2.4) Total Bilirubin 0.9 mg/dl (0.2-1) Direct Bilirubin 0.2 mg/dl (0-0.2) Aspartate Amino Transf (AST/SGOT) 211 U/L (15-37) Alanine Aminotransferase (ALT/SGPT) 60 U/L (12-78) Alkaline Phosphatase 79 U/L (45-117) Total Creatine Kinase 74 U/L (26-192) Creatine Kinase MB 1.8 ng/ml (0.5-3.6) Creatine Kinase MB Ratio 2.4 (0-3.0) Pro-B-Type Natriuretic Peptide 82602 pg/ml (0-900) Total Protein 7.8 gm/dl (6.4-8.2) Albumin 3.9 gm/dl (3.4-5.0) Lipase 232 U/L (73-393) Thyroid Stimulating Hormone (TSH) 1.960 uIu/ml (0.300-4.500) Laboratory results per my review. Medications Administered Medications (Trade) Dose Ordered Sig/Nydia Route Start Time Stop Time Status Last Admin Dose Admin Ondansetron HCl (Zofran Inj) 4 mg NOW STAT IV 07/03/16 22:04 07/03/16 22:07 DC 07/04/16 00:07 4 MG Clonidine HCl (Catapres Tab) 0.3 mg NOW ONCE PO 07/03/16 22:15 07/03/16 22:16 DC 07/03/16 22:31 0.3 MG Metoprolol Tartrate (Lopressor Iv) 15 mg NOW STAT IV 07/03/16 22:04 07/03/16 22:07 DC 07/04/16 00:11 5 MG Potassium Chloride (Klor-Con M10) 40 meq NOW STAT PO 07/04/16 01:15 07/04/16 01:19 DC 07/04/16 01:41 40 MEQ ECG Indication: abdominal pain Rate (beats per minute): 89 Rhythm: atrial fibrillation Findings: other (no PVCs, no acute ST segment abnormalities) Comparison ECG Date: 06/23/2016 Change: no significant change ED Course 0: The patient was evaluated in room B11. A complete history and physical examination were performed. 4: Ordered Lopressor 15 m g IV, Zofran Inj 4 mg IV 2215: Ordered Clonidine HCl 0.3 mg PO, Morphine Sulfate 4 mg IV 0047: Upon reevaluation, the patient is resting comfortably. I discussed results and treatment plan with the patient and her daughter. They verbalize agreement and understanding. The patient will be evaluated for further management and care. 0105: I discussed the patient's case with Dr. Yehuda Hunter. The patient will be evaluated for further management. Medical Decision Prior records/ancillary studies reviewed. Triage Nursing notes reviewed. Additional history obtained from the patient's daughter. The patient's history was concerning for abdominal pain. Differential diagnosis: Etiologies such as appendicitis, diverticulitis, PUD, biliary pathology, UTI, pancreatitis, obstruction, mesenteric ischemia, aortic pathology, infections, inflammatory bowel disease, renal colic, as well as others were entertained. The patient is a 70-year-old female who presented to the [facility] department with her daughter for an evaluation of altered mental status and lower abdominal pain. The patient was recently seen in our facility for hemorrhagic CVA in March. The patient also had atrial fibrillation and her anticoagulation was held because the hemorrhagic CVA. She was recently in our facility again for an ischemic stroke. The patient presented today because of altered mental status. According to her family member the patient may not a been taking her antihypertensives. The patient's overall physical exam appeared to be consistent with an encephalopathic process. The patient was treated with blood pressure medication in the emergency department. She was reevaluated multiple times. I discussed the patient's laboratory and radiographic studies with her. I also discussed this case with the on-call [facility] hospitalist group. They' ve agreed to evaluate the patient in the emergency department for further management and disposition. Consults Time Called: 52 Consulting Physician: Dr. Yehuda Hunter Returned Call: [phone] I discussed the patient's case with Dr. Yehuda Hunter. The patient will be evaluated for further management. Impression Primary Impression: Altered mental status Additional Impressions: Hypertensive encephalopathy LLQ abdominal pain MILLY (acute kidney injury) Pulmonary edema Elevated troponin Scribe Attestation The scribe's documentation has been prepared under my direction and personally reviewed by me in its entirety. I confirm that the note above accurately reflects all work, treatment, procedures, and medical decision making performed by me. Departure Information Dispostion Being Evaluated By Hospitalist Referrals Cristiano Cerda M.D. (PCP) Patient Instructions My [facility] Problem Qualifiers Primary Impression: Altered mental status Altered mental status type: unspecified Qualified Codes: R41.82 - Altered mental status, unspecified Additional Impressions: Pulmonary edema Chronicity: acute Qualified Codes: J81.0 - Acute pulmonary edema
[2016-07-04 00:18] LABS: BASO % 0.1 %; BASO ABS # 0.02 K/uL (0-0.2); COMPLETE YES; EOS % 0.1 %; HEMATOCRIT 42.9 % (37-47); IG% 0.3 %; LYMPH % 10.7 %; LYMPH ABS # 1.79 K/uL (1.2-3.4); MEAN CELL VOLUME 88.1 fL (80-100); MEAN CORPUSCULAR HEMOGLOBIN 31.6 pg (25-34); MEAN CORPUSCULAR HGB CONC 35.9 g/dl (32-36); MEAN PLATELET VOLUME 12.2 fL (7.4-10.4); MONO % 10.9 %; NEUT % 77.9 %; PLATELET COUNT 156 K/uL (130-400); RED BLOOD COUNT 4.87 M/uL (4.2-5.4); WHITE BLOOD COUNT 16.77 K/uL (4.8-10.8)
[2016-07-04 00:31] LABS: PROTHROMBIN TIME (PATIENT) 10.7 SECONDS (9.0-12.0)
[2016-07-04 00:42] LABS: BUN/CREATININE RATIO 18.7 (10-20); CALCIUM 9.7 mg/dl (8.5-10.1); CREATININE 3.7 mg/dl (0.60-1.20); MAGNESIUM 3.5 mg/dl (1.8-2.4); POTASSIUM 3.4 mmol/L (3.5-5.1)
[2016-07-04 00:54] LABS: CKMB/CK RATIO 2.4 (0-3.0); PHOSPHORUS 3.4 mg/dl (2.5-4.9); THYROID STIMULATING HORMONE 1.96 uIu/ml (0.300-4.500)
[2016-07-04] MEDS ORDERED: POTASSIUM CHLORIDE 10 MEQ TABCR PO STA (01:15)
[2016-07-04] MEDS ORDERED: NITROGLYCERIN 0.4 MG SL PER TAB CHARGE SL PRN (02:15)
[2016-07-04] MEDS ORDERED: NITROGLYCERIN 0.4 MG SL PER TAB CHARGE UT PRN (02:15)
[2016-07-04] MEDS ORDERED: HYDROmorphone INJ 0.5 MG/0.5 ML SYR IV PRN (02:15)
[2016-07-04] MEDS ORDERED: POLYETHYLENE (MIRALAX) 17 GM PACK PO PRN (02:15)
[2016-07-04] MEDS ORDERED: OXYCODONE/ACETAMINOPHEN 5-325 TAB PO PRN (02:15)
[2016-07-04] MEDS ORDERED: DOCUSATE SODIUM 100 MG CAP PO PRN (02:15)
[2016-07-04] MEDS ORDERED: NIFEdipine 30 MG CR TAB PO ONE (02:45)
[2016-07-04] MEDS ORDERED: DEXTROSE 50% 50 ML SYR IV PRN (04:45)
[2016-07-04] MEDS ORDERED: GLUCOSE 10 TABS/TUBE PO PRN (04:45)
[2016-07-04] MEDS ORDERED: GLUCAGON FOR INJ 1 MG VIAL SQ PRN (04:45)
[2016-07-04] MEDS ORDERED: GLUCOSE 40% GEL 15 GM TUBE PO PRN (04:45)
[2016-07-04] MEDS ORDERED: TRAMADOL HCL 50 MG TAB PO PRN (05:00)
[2016-07-04 06:50] LABS: BUN/CREATININE RATIO 18.3 (10-20); CALCIUM 9.5 mg/dl (8.5-10.1); POTASSIUM 3.6 mmol/L (3.5-5.1)
[2016-07-04] MEDS ORDERED: METRONIDAZOLE 500 MG TAB PO ONE (06:58)
[2016-07-04] MEDS: INSULIN ASPART 100 UNITS/ML 3 ML PEN SC SCH ×4 (07:00→20:09)
--- NOTE | 2016-07-04 07:16 | DIAGNOSTIC IMAGING REPORT ---
HEAD CT NONCONTRAST CT DOSE: HISTORY: Altered mental status. TECHNIQUE: Multiaxial CT images of the head were performed without the use of intravenous contrast. Automated exposure control was utilized for this study. Comparison: Head CT 06/23/2016. Findings: The paranasal sinuses and mastoid air cells are clear. The calvarium and skull base are intact. There is no mass, midline shift, acute infarct. White matter hypodensity is nonspecific but suggestive of microvascular ischemic change. The ventricles and sulci demonstrate mild age-related involutional changes. Old bilateral basal ganglia infarcts. Old right cerebellar infarct. Stable small residual hemorrhage within the right occipital periventricular location. No new areas of hemorrhage identified. Impression: Stable small focus of hemorrhage within the right occipital lobe. Old infarcts. No new areas of hemorrhage identified. Electronically signed by: Javon Tariq M.D. 07/04/2016 7:15 AM Dictated Date/Time: 07/04/2016 7:13 AM
--- NOTE | 2016-07-04 07:20 | DIAGNOSTIC IMAGING REPORT ---
CT SCAN OF THE ABDOMEN AND PELVIS WITHOUT CONTRAST CLINICAL HISTORY: Left-sided abdominal pain COMPARISON STUDY: No previous studies for comparison. TECHNIQUE: CT scan of the abdomen and pelvis was performed from the lung bases to the proximal femurs. Images are reviewed in the axial, sagittal, and coronal planes. IV contrast was not administered for this examination. CT DOSE: 1627.51 mGy.cm FINDINGS: Lower chest: The heart is enlarged. There is bibasal atelectasis. Liver: The unenhanced liver is normal in size, contour, and attenuation. There is no intrahepatic biliary ductal dilatation. Gallbladder: Surgically absent Spleen: Normal in size and attenuation. Pancreas: Unremarkable. Adrenal glands: The 20 mm left adrenal gland nodule Kidneys: The right kidney appears atrophic. There is a nonobstructing 3 mm right renal calculus. No ureteral or bladder calculi are visualized. A left-sided retroperitoneal calcification as visualized in image #[id number], is likely vascular. There is mild left-sided perinephric stranding. Bowel: There are no transition zones to indicate bowel obstruction. There are fluid-filled small bowel loops. There is no acute diverticulitis. There are no findings to indicate acute appendicitis. Peritoneum: There is no intraperitoneal free air or abdominal ascites. There is a complex bilobed fat-containing umbilical hernia with mild fat stranding. Vasculature: The abdominal aorta is normal in course and caliber. Adenopathy: None. Pelvic viscera: The bladder, and pelvic viscera are unremarkable. Skeletal structures: No destructive osseous lesions are seen. IMPRESSION: 1. Asymmetric renal size, likely indicating mild right renal atrophy 2. Nonobstructing right renal calculus 3. Nonspecific left-sided perinephric stranding 4. No evidence of bowel obstruction. No evidence of free air 5. 2 cm left adrenal nodule 6. Complex fat-containing bilobed umbilical hernia with mild infiltration of the fat Electronically signed by: Renato Marti M.D. 07/04/2016 7:19 AM Dictated Date/Time: 07/04/2016 7:08 AM
--- NOTE | 2016-07-04 07:41 | HISTORY & PHYSICAL EXAMINATION ---
DATE OF ADMISSION: 07/04/2016 PRIMARY CARE DOCTOR: Dr. Cerda. HX obtained from px, daughter, and records. CHIEF COMPLAINT: Not well as per the patient. Altered mental status as per daughter. HISTORY OF PRESENT ILLNESS: Medical history significant for CAD sp stenting, COPD as per records, hypertension, history of recurrent CVA, atrial fibrillation, off anticoagulation because of recent intracranial hemorrhage, chronic renal insufficiency (baseline creatinine of around 1.8), IBS as per records, DM2 diet controlled, cerebral amyloid angiopathy as per records, medication noncompliance per records, depression as per records. Recent confinement about 2 weeks ago for hypertensive urgency. Seen by Nephrology. Clonidine dose increased from 0.2 to 0.3 mg p.o. b.i.d. Nifedipine added to regimen. Lasix increased from 40 daily to 80 b.i.d. Cerebellar infact unknown duration on head CT. Repeat CAT scan of the head contemplated last week of June. Low-dose aspirin to be started for ischemic stroke prevention if stable findings as per Neurology recommendations. Yesterday, the patient had abdominal discomfort, not feeling well, menstrual cramp sensation, some nausea, no vomiting; diarrhea. Denies dysuria. She did not take her blood pressure pills because she felt sick. Somewhat confused as per daughter. Patient denies chest pain or shortness of breath as per the patient. Legs more swollen. In the Emergency Room, blood pressure noted to be 229/124. The patient given Lopressor and clonidine in the Emergency Room. Blood pressure currently improved at 185/110. Patient more comfortable, oriented. Denies depression. Daughter thinks mom increasingly frustrated w/ increasing debility over the last few months 2 to medical problems. MEDICAL HISTORY: As above. SURGERIES: section, knee surgery, cholecystectomy, tonsillectomy, sinus surgery. HOME MEDICATIONS: Allopurinol, Tylenol, chlorhexidine, PeriGuard, docusate sodium, Pepcid, Keppra, Nitrostat, MiraLax, Spiriva, Ultram. ALLERGIES: TO VERAPAMIL AND LISINOPRIL. FAMILY HISTORY: Heart disease. PERSONAL AND SOCIAL HISTORY: Nonsmoker. No chronic intake of alcoholic beverages. Lives alone. 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 REVIEW OF SYSTEMS: As per HPI. All other ROS negative. PHYSICAL EXAMINATION: VITAL SIGNS: Blood pressure was noted to be 229/134, later 186/108, pulse rate 90, RR 16, temperature 36.8, sats 99 on 2 liters. GENERAL: Noted to be obese, comfortable, oriented. No respiratory distress. SKIN: Normal color. HEENT: [place] palpebral conjunctivae. Dry mucosa. Some mild facial asymmetry (chronic) NECK: Short neck. LUNGS: Decreased breath sounds. HEART: Regular rate and rhythm. ABDOMEN: Some distention. Hernia noted. No tenderness. EXTREMITIES: swelling, bilateral lower extremities no tenderness. NEUROLOGIC: No gross focality except for old asymmetry of the face. LABORATORY DATA: Hemoglobin 15, hematocrit 42, white cell count 16, platelets 200. Sodium 139, potassium 3.4, chloride 94, CO2 of 37, BUN 69, creatinine 2.7, glucose 140. Troponin was noted to be 0.074. Chest x-ray, some congestion. CT of the head, small residual hemorrhage right occipital, stable chronic right cerebellar infarct, basal ganglia lacunar infarct. CT abdomen and pelvis, left renal enlargement with stranding, possibly from infection. Scattered air-fluid in small-bowel. EKG: Afib. ASSESSMENT AND PLAN: 1. Transient encephalopathy multifactorial : Hypertensive urgency secondary to missed medication (hx med non-compliance as per records) diarrheal illness ro cdif ro urinary tract infection, possible sepsis. 2. Acute renal failure on CRI secondary to illness, home diuretics 3. chronic diastolic HF RSHF as per records EF of 50-55%. volume status somewhat equivocal Patient seems to be a little bit more on the volume overloaded side with weight gain of 3 pounds ff recent confinement and pulm congestion on CXR 4. CAD sp stenting 5. Chronic obstructive pulmonary disease as per records. 6. hx CVA (recent ICH, hx cerebral amyloid angiopathy as per records; cerebellar infarct on CT from recent confinement) 7. Leg swelling, rule out deep venous thrombosis 8. DM2, well controlled as of recent HgA1c of 5.7 (06/2016) PLAN: PCU. Continue home blood pressure medications. Nephrology consult RE ARF on CRI. Hold home diuretics for now until seen by Nephrology. Baseline urinalysis. Follow the cultures. May need antibiotics for poss UTI pending UA results LE venous Dopplers to rule out DVT. stool cdif, Flagyl for now for presumptive cdif in light of leukocytosis, dc Flagyl if stool cdif negative ISS BG goal 140-180. PT, OT eval. DVT prophylaxis, SCDs, RE recent intracranial hemorrhage. DNR Px's daughter requesting for updates from providers. Ms. Christine Kamara at [phone]. [facility]
[2016-07-04] MEDS: CLONIDINE HCL 0.1 MG TAB PO SCH ×2 (08:14→23:19)
[2016-07-04] MEDS: LEVETIRACETAM 500 MG TAB PO SCH ×2 (08:15→19:47)
[2016-07-04] MEDS: ALLOPURINOL 300 MG TAB PO SCH (08:15)
[2016-07-04] MEDS: FAMOTIDINE 20 MG TAB PO SCH (08:15)
--- NOTE | 2016-07-04 08:15 | DIAGNOSTIC IMAGING REPORT ---
BILATERAL LOWER EXTREMITY VENOUS DOPPLER HISTORY: leg swelling COMPARISON STUDY: None. FINDINGS: There is normal compressibility, flow, and augmentation within the bilateral lower extremity deep venous systems. IMPRESSION: No DVT within the right or left lower extremity. Electronically signed by: Javon Tariq M.D. 07/04/2016 8:13 AM Dictated Date/Time: 07/04/2016 8:13 AM
[2016-07-04] MEDS: TIOTROPIUM BROMIDE 5 PUFF/90 MCG INH INH SCH (08:18)
[2016-07-04] MEDS: LIDODERM (LIDOCAINE) PATCH 5% TD SCH (09:19)
--- NOTE | 2016-07-04 09:41 | NEPHROLOGY CONSULTATION ---
DATE OF CONSULTATION: 07/04/2016 ATTENDING OF RECORD: Dr. Blackman. REASON FOR CONSULTATION: Hypertensive urgency and MILLY. HISTORY OF PRESENT ILLNESS: This is a 70-year-old female who was recently in the hospital from 06/23/2016-06/28/2016 with hypertensive urgency, who has significant history of a nontraumatic occipital hemorrhage in March 2016 in the setting of Coumadin and severe hypertension and was life-flighted to [place]. Does have a longstanding history of hypertension which has been very poorly controlled and is secondary to side effects to the medicines or ineffective regimen. The patient's blood pressure medications were adjusted and patient was given aggressive IV diuretics to help with her significant edema to help try to control her blood pressure through diuresis. The patient went home and at that time creatinine was anywhere from 1.8-2. While at home, patient became significantly constipated, had nausea and vomiting for the last several days, was not feeling well, decreased appetite. The day before coming in she did not take any of her medications and she was not feeling well and she comes in with a creatinine of 4 and hypertensive urgency. Diuretics were held and adjusted blood pressure medications. The patient just had Doppler studies done on her legs to rule out a DVT. The patient now currently complaining of pain in her left side, but she states she was able to have a bowel movement finally. PAST MEDICAL HISTORY: Atrial fibrillation, coronary artery disease, status post stenting, CKD stage III with baseline creatinine of 1.8-2, COPD, type 2 diabetes, depression, hyperlipidemia, significant hypertension, longstanding and very uncontrolled, GERD, irritable bowel syndrome, history of occipital hemorrhage in March 2016. PAST SURGICAL HISTORY: Knee replacement, cholecystectomy, stent placement to the heart. FAMILY HISTORY: Significant for stomach cancer. SOCIAL HISTORY: No tobacco, no alcohol, no drugs. Lives at home with family. CURRENT MEDICATIONS: Procardia-XL 90 mg daily, Toprol-XL 125 mg at night, Flagyl 500 mg p.o. t.i.d., allopurinol 450 mg daily, Pepcid 20 mg daily, Keppra 500 mg p.o. b.i.d., clonidine 0.3 mg p.o. b.i.d., sliding-scale insulin. REVIEW OF SYSTEMS: Complains of fatigue, weakness, decreased appetite, nausea, vomiting, constipation. No headaches, no blurry vision, no dysphagia, no chest pain, no shortness of breath. No rash or itching. All other review of systems is otherwise negative. PHYSICAL EXAMINATION: VITAL SIGNS: Temperature 37, pulse 69, respiratory rate is 20, blood pressure 189/115. Satting 100% on 3 liters. GENERAL: Awake, alert, oriented x3. EYES: No scleral icterus. ENT: Moist mucous membranes. NECK: Supple. PULMONARY: Clear to auscultation. CARDIAC: Positive ectopy. ABDOMEN: Bowel sounds positive, soft, nontender, positive ventral hernia. EXTREMITIES: No clubbing, cyanosis or edema. NEUROLOGICALLY: Nonfocal. DERM: No rash or ulcers noted. LABORATORY DATA: White count 16, H\T\H 15 and 42, platelet count is 156. Sodium was 138, potassium 3.6, chloride 95, bicarbonate is 29, BUN 73, creatinine is 4, glucose 129, calcium is 9.5. Troponin was 0.074 and trending up and now is 0.096. INR is 1. Blood cultures are pending. Venous Doppler study shows no DVT in the lower extremities. Abdominal pelvis CT shows mild right renal atrophy with right renal kidney stone, nonspecific left-sided perinephric stranding, 2 cm left adrenal nodule, complex fat containing bilobed umbilical hernia. No evidence of bowel obstruction. Chest x-ray shows congestive heart failure. Head CT shows stable small focus of hemorrhage within the right occipital lobe, old infarcts, no new hemorrhages noted. IMPRESSION AND PLAN: 1. Acute kidney injury with a creatinine of 4 with a baseline of 1.8-2 secondary to volume depletion. Does have underlying CKD from hypertension, currently holding diuretics which is appropriate, hesitant to give fluids at this time given her significant hypertension. I would like to control her blood pressure with a goal systolic in the 160s if possible through vasodilation alone and not with diuretics until kidney function eventually improves back down to baseline. Once blood pressure is under more reasonable control, could consider a small rate of IV fluids if necessary. 2. Hypertension, currently on nifedipine 90 mg daily, Toprol-XL 125 mg at night, clonidine 0.3 mg p.o. b.i.d. The patient was sensitive to hydralazine during previous admission. Would like to follow the blood pressures and see what they are a couple of hours after given the morning medications. If blood pressure is still elevated, would like to start hydralazine 25 mg p.o. t.i.d. and see if we can improve the systolics down to the 160s and the diastolics below 100. Appreciate consultation. CELSO
[2016-07-04] MEDS ORDERED: HydrALAZINE HCL 20 MG/ML VIAL IV. PRN (12:15)
[2016-07-04] MEDS: METRONIDAZOLE 500 MG TAB PO SCH ×2 (13:48→19:48)
--- NOTE | 2016-07-04 18:33 | Progress Note ---
Internal Med Progress Note Date of Service: Jul 04, 2016. Provider Documentation: SUBJECTIVE: resting comfortably says vomiting improved still has some diarrhea denies any abdominal pain afebrile no sob or chest pain OBJECTIVE: Vital Signs-as noted below Exam: General-alert and awake and oriented. Not in distress ENT-normal hearing Neck-no neck masses Lungs-cta b/l no wheezing or crackles Heart-s1 and s2 heard, regular rate and rhythm no murmurs Abdomen-soft bowel sounds present non tender no distension Extremities- no erythema Neuro-alert and awake moves extremities Lab data as noted below. ASSESSMENT & PLAN: 1. Transient encephalopathy multifactorial : Hypertensive urgency secondary to missed medication (hx med non-compliance as per records) Patient says she did not take her medications secondary to nausea/vomiting diarrheal illness ro cdif encephalopathy improved BP improved with taking home meds. on flagyl until stool for c diff results are back. 2. Acute renal failure secondary to illness, home diuretics baseline cr 1.8 presented with cr 4.0 holding diuretics now nephrology wants blood pressure to better controlled before giving gentle fluids nephrology on board and appreciate inputs. will f/u labs 3. chronic diastolic HF RSHF as per records EF of 50-55%. volume status somewhat equivocal holding diuretics monitor for volume overload. 4. Hypertensive urgency missed home medications restarted home nifedipine, toprol xl,clonidine. Goal BP <160/100 plan to add po hydralazine as per nephrology iv hydralazine prn will monitor 5. CAD sp stenting currently stable. 5. Chronic obstructive pulmonary disease as per records.stable. 6. hx CVA (recent ICH, hx cerebral amyloid angiopathy as per records; cerebellar infarct on CT from recent confinement) will monitor. 7. Leg swelling,No DVT on Doppler. 8. DM2, well controlled as of recent HgA1c recent hba1c 5.9 not on meds iss will monitor. DVT PROPHYLAXIS scds DISPOSITION monitor in tele Vital Signs: Date Time Temp Pulse Resp B/P Pulse Ox O2 Delivery O2 Flow Rate FiO2 07/04/16 16:00 90 Nasal Cannula 2.0 07/04/16 15:35 37.5 100 16 161/94 90 Nasal Cannula 2.0 07/04/16 12:00 Room Air 07/04/16 11:18 179/141 07/04/16 11:18 179/101 07/04/16 11:17 37.2 72 18 182/103 93 Room Air 07/04/16 09:25 71 154/87 97 Room Air 07/04/16 08:00 Nasal Cannula 3.0 07/04/16 07:29 37.0 69 20 189/115 100 3.0 07/04/16 04:57 84 182/82 07/04/16 04:00 99 Nasal Cannula 2.0 07/04/16 04:00 36.8 83 16 192/104 99 Nasal Cannula 2.0 07/04/16 02:51 73 16 211/100 99 Nasal Cannula 2.0 07/04/16 02:45 77 20 211/100 99 Nasal Cannula 2.0 07/04/16 02:03 76 16 209/115 99 Nasal Cannula 2.0 07/04/16 01:30 86 16 185/110 100 Nasal Cannula 2.0 07/04/16 01:04 80 07/04/16 01:00 85 16 192/104 100 Room Air 07/04/16 00:40 82 16 186/108 100 Nasal Cannula 2.0 07/04/16 00:28 88 20 198/108 100 07/04/16 00:19 84 16 194/108 100 Nasal Cannula 2.0 07/04/16 00:11 91 211/116 07/04/16 00:10 99 16 211/116 91 Room Air 07/03/16 23:49 89 16 217/118 97 Room Air 07/03/16 22:25 97 Room Air 07/03/16 22:25 97 Room Air 07/03/16 22:24 84 16 211/117 96 Room Air 07/03/16 21:27 84 07/03/16 21:04 36.6 84 20 229/124 99 Room Air Lab Results: Results Past 24 Hours Test 07/03/16 22:22 07/04/16 00:05 07/04/16 01:40 07/04/16 06:04 Range/Units Bedside Glucose 141 70-90 mg/dl White Blood Count 16.77 4.8-10.8 K/uL Red Blood Count 4.87 4.2-5.4 M/uL Hemoglobin 15.4 12.0-16.0 g/dL Hematocrit 42.9 37-47 % Mean Corpuscular Volume 88.1 80-100 fL Mean Corpuscular Hemoglobin 31.6 25-34 pg Mean Corpuscular Hemoglobin Concent 35.9 32-36 g/dl Platelet Count 156 130-400 K/uL Mean Platelet Volume 12.2 7.4-10.4 fL Neutrophils (%) (Auto) 77.9 % Lymphocytes (%) (Auto) 10.7 % Monocytes (%) (Auto) 10.9 % Eosinophils (%) (Auto) 0.1 % Basophils (%) (Auto) 0.1 % Neutrophils # (Auto) 13.07 1.4-6.5 K/uL Lymphocytes # (Auto) 1.79 1.2-3.4 K/uL Monocytes # (Auto) 1.83 0.11-0.59 K/uL Eosinophils # (Auto) 0.01 0-0.5 K/uL Basophils # (Auto) 0.02 0-0.2 K/uL RDW Standard Deviation 44.6 36.4-46.3 fL RDW Coefficient of Variation 13.9 11.5-14.5 % Immature Granulocyte % (Auto) 0.3 % Immature Granulocyte # (Auto) 0.05 0.00-0.02 K/uL Prothrombin Time 10.7 9.0-12.0 SECONDS Prothromb Time International Ratio 1.0 0.9-1.1 Activated Partial Thromboplast Time 27.0 21.0-31.0 SECONDS Partial Thromboplastin Ratio 1.0 Sodium Level 139 138 136-145 mmol/L Potassium Level 3.4 3.6 3.5-5.1 mmol/L Chloride Level 94 95 98-107 mmol/L Carbon Dioxide Level 34 29 21-32 mmol/L Anion Gap 11.0 14.0 3-11 mmol/L Blood Urea Nitrogen 69 73 7-18 mg/dl Creatinine 3.70 4.00 0.60-1.20 mg/dl Est Creatinine Clear Calc Drug Dose 15.1 13.9 ml/min Estimated GFR () 13.4 12.2 Estimated GFR (Non- 11.6 10.5 BUN/Creatinine Ratio 18.7 18.3 10-20 Random Glucose 140 129 70-99 mg/dl Bedside Lactic Acid Venous 1.15 0.90-1.70 mmol/L Calcium Level 9.7 9.5 8.5-10.1 mg/dl Phosphorus Level 3.4 2.5-4.9 mg/dl Magnesium Level 3.5 1.8-2.4 mg/dl Total Bilirubin 0.9 0.2-1 mg/dl Direct Bilirubin 0.2 0-0.2 mg/dl Aspartate Amino Transf (AST/SGOT) 211 15-37 U/L Alanine Aminotransferase (ALT/SGPT) 60 12-78 U/L Alkaline Phosphatase 79 45-117 U/L Total Creatine Kinase 74 26-192 U/L Creatine Kinase MB 1.8 0.5-3.6 ng/ml Creatine Kinase MB Ratio 2.4 0-3.0 Troponin I 0.074 0.085 0.096 0-0.045 ng/ml Pro-B-Type Natriuretic Peptide 90949 0-900 pg/ml Total Protein 7.8 6.4-8.2 gm/dl Albumin 3.9 3.4-5.0 gm/dl Lipase 232 73-393 U/L Thyroid Stimulating Hormone (TSH) 1.960 0.300-4.500 uIu/ml Test 07/04/16 06:42 07/04/16 11:09 07/04/16 15:59 Range/Units Bedside Glucose 133 157 132 70-90 mg/dl Microbiology Results 07/04/16 Blood Culture, Received Pending 07/04/16 Blood Culture, Received Pending
[2016-07-04] MEDS: METOPROLOL SUCC 50MG EXT REL TAB PO SCH (19:48)
[2016-07-04] MEDS: ACETAMINOPHEN 325 MG TAB PO PRN (19:49)
[2016-07-04 21:17] LABS: URINE APPEARANCE CLOUDY (CLEAR); URINE BILIRUBIN NEG (NEG); URINE COLOR ORANGE; URINE EPITHELIAL CELL AUTO 20-30 /lpf (0-5); URINE NITRITE NEG (NEG); URINE PH 5.5 (4.5-7.5); URINE SPECIFIC GRAVITY 1.009 (1.000-1.030); UROBILINOGEN NEG (NEG); ZZUR CULT IF INDIC CLEAN CATCH YES
[2016-07-04 21:25] LABS: MANUAL MICROSCOPIC REQUIRED? NO; REVIEW REQ? NO
[2016-07-04] MEDS: CEFTRIAXONE SOD INJ 1 GM in DEXTROSE 5% ADD-VANTAGE 50ML 50 ML IV SCH (23:19)
[2016-07-05] VITALS (11 sets, daily range): BP systolic 115–162; BP diastolic 71–96; PULSE 77–96; TEMP 36.4–37.8; O2SAT 91–98
[2016-07-05] MEDS: ACETAMINOPHEN 325 MG TAB PO PRN ×2 (04:05→20:33)
[2016-07-05] MEDS: INSULIN ASPART 100 UNITS/ML 3 ML PEN SC SCH ×4 (06:43→20:31)
[2016-07-05 07:35] LABS: HEMATOCRIT 41.1 % (37-47); MEAN CELL VOLUME 89.3 fL (80-100); MEAN CORPUSCULAR HEMOGLOBIN 31.5 pg (25-34); MEAN CORPUSCULAR HGB CONC 35.3 g/dl (32-36); MEAN PLATELET VOLUME 12.1 fL (7.4-10.4); PLATELET COUNT 104 K/uL (130-400)
[2016-07-05 07:36] LABS: BASO % 0.1 %; BASO ABS # 0.03 K/uL (0-0.2); COMPLETE YES; IG% 0.4 %; LARGE PLATELETS 1+; LYMPH ABS # 1.75 K/uL (1.2-3.4); MONO % 9.8 %; NEUT % 82.7 %
[2016-07-05 07:53] LABS: BUN/CREATININE RATIO 16.5 (10-20); CALCIUM 9.1 mg/dl (8.5-10.1); CREATININE 5.6 mg/dl (0.60-1.20)
[2016-07-05] MEDS: TIOTROPIUM BROMIDE 5 PUFF/90 MCG INH INH SCH (08:15)
[2016-07-05] MEDS: LEVETIRACETAM 500 MG TAB PO SCH ×2 (08:15→20:32)
[2016-07-05] MEDS: LIDODERM (LIDOCAINE) PATCH 5% TD SCH (08:16)
[2016-07-05] MEDS: FAMOTIDINE 20 MG TAB PO SCH (08:16)
[2016-07-05] MEDS: ALLOPURINOL 300 MG TAB PO SCH (08:16)
[2016-07-05] MEDS: METRONIDAZOLE 500 MG TAB PO SCH ×3 (08:17→20:33)
[2016-07-05] MEDS: CLONIDINE HCL 0.1 MG TAB PO SCH ×2 (09:37→20:34)
[2016-07-05] MEDS: NIFEdipine 30 MG CR TAB PO SCH (09:37)
--- NOTE | 2016-07-05 10:02 | Nephrology Progress Note ---
Nephrology Progress Note Date of Service: Jul 05, 2016. Subjective 70 yo female with hypertensive urgency and ckd stage 4 who presented with milly, constipation, n/v and worsening bp. pt stopped bp meds the day before admission secondary to not feelign well. brought bp down yesterday. holding diuretics. pt oob to chair. does not want any dialysis what so ever, not even one treatment. creatinine worsening. Objective Date Time Temp Pulse Resp B/P Pulse Ox O2 Delivery O2 Flow Rate FiO2 07/05/16 09:22 82 98 07/05/16 08:06 36.4 89 20 142/87 92 Nasal Cannula 2.0 132/81 07/05/16 08:00 Nasal Cannula 2.0 07/05/16 04:10 94 Nasal Cannula 2.0 07/05/16 04:00 36.6 81 20 154/94 93 Nasal Cannula 2.0 07/05/16 00:00 95 Nasal Cannula 3.0 07/04/16 23:43 36.9 92 20 143/86 95 Nasal Cannula 2.0 07/04/16 22:15 36.8 84 18 131/77 94 Nasal Cannula 3.0 07/04/16 20:00 92 Nasal Cannula 5.0 07/04/16 19:47 38.6 104 16 125/83 92 Nasal Cannula 5.0 07/04/16 18:44 118 149/86 121 134/75 07/04/16 16:00 90 Nasal Cannula 2.0 07/04/16 15:35 37.5 100 16 161/94 90 Nasal Cannula 2.0 07/04/16 12:00 Room Air 07/04/16 11:18 179/141 07/04/16 11:18 179/101 07/04/16 11:17 37.2 72 18 182/103 93 Room Air Physical Exam: General-aaox3 Eyes-no scleral icterus ENT-mmm Neck-supple Lungs-decreased breath sounds at bases Heart-irregular Abdomen-bs+ s/nt/nd Extremities-mild edema Neuro-nonfocal Current Inpatient Medications Medications (Trade) Dose Ordered Sig/Nydia Route Start Time Stop Time Status Last Admin Dose Admin Nifedipine (Procardia Xl Tab) 90 mg QAM PO 07/05/16 09:00 08/04/16 08:59 07/05/16 09:37 90 MG Acetaminophen (Tylenol Tab) 650 mg Q4H PRN PO 07/04/16 02:15 08/03/16 02:14 07/05/16 04:05 650 MG Nitroglycerin (Nitrostat Tab) 0.4 mg UD PRN SL 07/04/16 02:15 08/03/16 02:14 Hydromorphone HCl (Dilaudid Inj) 0.5 mg Q3H PRN IV 07/04/16 02:15 07/18/16 02:14 Allopurinol (Zyloprim Tab) 450 mg DAILY PO 07/04/16 09:00 08/03/16 08:59 07/05/16 08:16 450 MG Docusate Sodium (coLACE CAP) 100 mg BID PRN PO 07/04/16 02:15 08/03/16 02:14 Famotidine (Pepcid Tab) 20 mg DAILY PO 07/04/16 09:00 08/03/16 08:59 07/05/16 08:16 20 MG Levetiracetam (Keppra Tab) 500 mg BID PO 07/04/16 09:00 08/03/16 08:59 07/05/16 08:15 500 MG Metoprolol Succinate (Toprol Xl Tab) 125 mg HS PO 07/04/16 21:00 08/03/16 20:59 07/04/16 19:48 125 MG Tiotropium [place] (Spiriva Handihaler Inhaler) 1 puff DAILY INH 07/04/16 09:00 08/03/16 08:59 07/05/16 08:15 1 PUFF Polyethylene (Miralax Powder Packet) 17 gm DAILY PRN PO 07/04/16 02:15 08/03/16 02:14 Clonidine HCl (Catapres Tab) 0.3 mg BID PO 07/04/16 09:00 08/03/16 08:59 07/05/16 09:37 0.3 MG Insulin Aspart (novoLOG ASPART) SLIDING SCALE If C... ACHS SC 07/04/16 07:00 08/03/16 06:59 Glucose (Glucose 40% Gel) 15-30 GRAMS 15 GRAMS... UD PRN PO 07/04/16 04:45 08/03/16 04:44 Glucose (Glucose Chew Tab) 4-8 Tablets 4 Tabl... UD PRN PO 07/04/16 04:45 08/03/16 04:44 Dextrose (Dextrose 50% 50ML Syringe) 25-50ML OF 50% DW IV FOR... UD PRN IV 07/04/16 04:45 08/03/16 04:44 Glucagon (Glucagon Inj) 1 mg UD PRN SQ 07/04/16 04:45 08/03/16 04:44 Tramadol HCl (Ultram Tab) FOR PAIN 25-50 MG 25 MG ... Q8H PRN PO 07/04/16 05:00 08/03/16 04:59 07/04/16 08:22 50 MG Metronidazole (Flagyl Tab) 500 mg TID PO 07/04/16 14:00 07/14/16 13:59 07/05/16 08:17 500 MG Miscellaneous Information (Pending Order) 1 ea DAILY@10 N/A 07/04/16 10:00 08/03/16 09:59 Lidocaine (Lidoderm Patch 5%) 1 patch QAM TD 07/04/16 09:00 08/03/16 08:59 07/05/16 08:16 1 PATCH Miscellaneous (Remove Lidoderm Patch) 1 ea DAILY@21 N/A 07/04/16 21:00 08/03/16 20:59 07/04/16 19:49 1 EA Hydralazine HCl 10 mg 10 mg Q6 PRN IV. 07/04/16 12:15 08/03/16 12:14 Ceftriaxone Sodium 1 gm/ Dextrose 50 ml @ 100 mls/hr Q24H IV 07/04/16 23:00 07/14/16 22:59 07/04/16 23:19 100 MLS/HR Sodium Chloride (Nss 1000ml) 1,000 ml @ 100 mls/hr Q10H IV 07/05/16 09:45 08/04/16 09:44 Last 24 Hours Test 07/04/16 11:09 07/04/16 15:59 07/04/16 20:03 07/04/16 20:55 Bedside Glucose 157 mg/dl 132 mg/dl 131 mg/dl Urine Color ORANGE Urine Appearance CLOUDY Urine pH 5.5 Urine Specific [place] 1.009 Urine Protein 3+ Urine Glucose (UA) NEG Urine Ketones NEG Urine Occult Blood 3+ Urine Nitrite NEG Urine Bilirubin NEG Urine Urobilinogen NEG Urine Leukocyte Esterase SMALL Urine WBC (Auto) >30 /hpf Urine RBC (Auto) >30 /hpf Urine Hyaline Casts (Auto) 1-5 /lpf Urine Epithelial Cells (Auto) 20-30 /lpf Urine Bacteria (Auto) 4+ Test 07/05/16 06:34 07/05/16 06:47 Bedside Glucose 127 mg/dl White Blood Count 24.90 K/uL Red Blood Count 4.60 M/uL Hemoglobin 14.5 g/dL Hematocrit 41.1 % Mean Corpuscular Volume 89.3 fL Mean Corpuscular Hemoglobin 31.5 pg Mean Corpuscular Hemoglobin Concent 35.3 g/dl Platelet Count 104 K/uL Mean Platelet Volume 12.1 fL Neutrophils (%) (Auto) 82.7 % Lymphocytes (%) (Auto) 7.0 % Monocytes (%) (Auto) 9.8 % Eosinophils (%) (Auto) 0.0 % Basophils (%) (Auto) 0.1 % Neutrophils # (Auto) 20.57 K/uL Lymphocytes # (Auto) 1.75 K/uL Monocytes # (Auto) 2.44 K/uL Eosinophils # (Auto) 0.01 K/uL Basophils # (Auto) 0.03 K/uL RDW Standard Deviation 46.1 fL RDW Coefficient of Variation 14.1 % Immature Granulocyte % (Auto) 0.4 % Immature Granulocyte # (Auto) 0.10 K/uL Large Platelets 1+ Sodium Level 133 mmol/L Potassium Level 4.0 mmol/L Chloride Level 91 mmol/L Carbon Dioxide Level 27 mmol/L Anion Gap 15.0 mmol/L Blood Urea Nitrogen 92 mg/dl Creatinine 5.60 mg/dl Est Creatinine Clear Calc Drug Dose 10.0 ml/min Estimated GFR () 8.1 Estimated GFR (Non- 7.0 BUN/Creatinine Ratio 16.5 Random Glucose 127 mg/dl Calcium Level 9.1 mg/dl Date/Time Source Procedure Growth Status 07/04/16 20:55 Urine , Clean Catch Urine Culture Pending Received Assessment & Plan MILLY/ATN-creatinine trending up, perhaps volume depletion significant enough to cause atn. however, perhaps lowering bp to normal range may have caused some hemodynamic issues with perfusion to the kidneys. will start iv fluids with bp under better control and see if creatinine eventually peaks and trends down. pt does not want dialysis and pt says her family members are aware of her wishes.
[2016-07-05] MEDS: SODIUM CHLORIDE 0.9% 1000ML 1,000 ML IV SCH ×2 (10:18→20:35)
[2016-07-05] MEDS ORDERED: BISACODYL 5 MG TABEC PO PRN (11:30)
--- NOTE | 2016-07-05 11:36 | Progress Note ---
Internal Med Progress Note Date of Service: Jul 05, 2016. Provider Documentation: SUBJECTIVE: Patient is feeling better C/o constipation. No nausea, vomiting, chest pain, abd pain, SOB Leg swelling b/l much better compared to prior admission BP is better OBJECTIVE : Vital Signs-as noted below Exam: General-alert and awake and oriented. Not in distress ENT-normal hearing Lungs-cta b/l no wheezing or crackles Heart-s1 and s2 heard, regular rate and rhythm no murmurs Abdomen-soft bowel sounds present non tender no distension Extremities-Trace edema- improved significantly compared to last admission Neuro-No focal deficits Lab data as noted below. ASSESSMENT & PLAN: ASSESSMENT & PLAN: MILLY ON CKD-III -Baseline creatinine around 1.8, presented with 4.0 and now up to 5.60 -Likely volume depletion secondary to nausea/vomiting in setting of chronic lasix use (recent admission-increased dose to help with diuresis/bp control)/ ATN with lowering BP -IV fluids started at 100 cc/hour per nephrology today -Monitor closely HYPERTENSIVE URGENCY Secondary to not taking meds due to nausea/vomiting. Known for difficulty controlling BP for years. Recent admission 06/28/16, prolonged stay due to difficult to manage BP, plus non compliant with her home medications -Recent admission changes: Increased lasix to 80 mg BID, Clonidine increased to 0.3 mg BID, Nifedipine 90 mg daily added -Continue with Clonidine 0.3 mg BID, Nifedipine 90 mg daily, Metoprolol 125 mg ( home meds), IV Hydralazine PRN. Held lasix as above -Monitor S/P NAUSEA/VOMITING- Resolved Possibly acute gastroenteritis vs related to UTI/Possible pyelo with ? left perinephric stranding on ct scan ? No diarrhea per patient, constipation + no BM for few days. C diff still pending collection -Advance diet to regular -CT abd/pelvis- 1. Asymmetric renal size, likely indicating mild right renal atrophy2. Nonobstructing right renal calculus3. Nonspecific left-sided perinephric stranding4. No evidence of bowel obstruction. No evidence of free air5. 2 cm left adrenal nodule6. Complex fat-containing bilobed umbilical hernia with mild infiltration of the fat UTI- UA +VE, CT - left perinephric stranding. Pyelo ?? -IV Rocephin (Day 2)- Continue -IV fluids -Urine c/s to follow up S/P TRANSIENT ENCEPHALOPATHY - Resolved, back to baseline Likely secondary to Hypertensive urgency secondary to missed medication (hx med non-compliance as per records) Patient says she did not take her medications secondary to nausea/vomiting -CT head- stable small focus of hemorrhage as prior scans - old and not new CHRONIC DIASTOLIC CHF -Per recent Echo EF of 50-55%. -Recently increased diuretics (last week during last admission) for better control of BP- lasix 80 mg BID. Hold due to above -Monitor closely CAD S/P STENTING -Stable COPD as per records -Stable with no signs of exacerbation -Monitor HX OF CVA (Recent ICH, Hx of cerebral amyloid angiopathy as per records, Cerebellar infarct per recent CT scan last admission) This admission- stable small hemorrhage old with no new changes DM2, well controlled as of recent HgA1c recent hba1c 5.9 -Not on meds -ISS, Accuchecks DVT PROPHYLAXIS scds re: hemorrhage DISPOSITION PT/OT monitor in tele Vital Signs: Date Time Temp Pulse Resp B/P Pulse Ox O2 Delivery O2 Flow Rate FiO2 07/05/16 09:22 82 98 07/05/16 08:06 36.4 89 20 142/87 92 Nasal Cannula 2.0 132/81 07/05/16 08:00 Nasal Cannula 2.0 07/05/16 04:10 94 Nasal Cannula 2.0 07/05/16 04:00 36.6 81 20 154/94 93 Nasal Cannula 2.0 07/05/16 00:00 95 Nasal Cannula 3.0 07/04/16 23:43 36.9 92 20 143/86 95 Nasal Cannula 2.0 07/04/16 22:15 36.8 84 18 131/77 94 Nasal Cannula 3.0 07/04/16 20:00 92 Nasal Cannula 5.0 07/04/16 19:47 38.6 104 16 125/83 92 Nasal Cannula 5.0 07/04/16 18:44 118 149/86 121 134/75 07/04/16 16:00 90 Nasal Cannula 2.0 07/04/16 15:35 37.5 100 16 161/94 90 Nasal Cannula 2.0 07/04/16 12:00 Room Air Lab Results: Results Past 24 Hours Test 07/04/16 15:59 07/04/16 20:03 07/04/16 20:55 07/05/16 06:34 Range/Units Bedside Glucose 132 131 127 70-90 mg/dl Urine Color ORANGE Urine Appearance CLOUDY CLEAR Urine pH 5.5 4.5-7.5 Urine Specific [place] 1.009 1.000-1.030 Urine Protein 3+ NEG Urine Glucose (UA) NEG NEG Urine Ketones NEG NEG Urine Occult Blood 3+ NEG Urine Nitrite NEG NEG Urine Bilirubin NEG NEG Urine Urobilinogen NEG NEG Urine Leukocyte Esterase SMALL NEG Urine WBC (Auto) >30 0-5 /hpf Urine RBC (Auto) >30 0-4 /hpf Urine Hyaline Casts (Auto) 1-5 0-5 /lpf Urine Epithelial Cells (Auto) 20-30 0-5 /lpf Urine Bacteria (Auto) 4+ NEG Test 07/05/16 06:47 07/05/16 11:10 Range/Units White Blood Count 24.90 4.8-10.8 K/uL Red Blood Count 4.60 4.2-5.4 M/uL Hemoglobin 14.5 12.0-16.0 g/dL Hematocrit 41.1 37-47 % Mean Corpuscular Volume 89.3 80-100 fL Mean Corpuscular Hemoglobin 31.5 25-34 pg Mean Corpuscular Hemoglobin Concent 35.3 32-36 g/dl Platelet Count 104 130-400 K/uL Mean Platelet Volume 12.1 7.4-10.4 fL Neutrophils (%) (Auto) 82.7 % Lymphocytes (%) (Auto) 7.0 % Monocytes (%) (Auto) 9.8 % Eosinophils (%) (Auto) 0.0 % Basophils (%) (Auto) 0.1 % Neutrophils # (Auto) 20.57 1.4-6.5 K/uL Lymphocytes # (Auto) 1.75 1.2-3.4 K/uL Monocytes # (Auto) 2.44 0.11-0.59 K/uL Eosinophils # (Auto) 0.01 0-0.5 K/uL Basophils # (Auto) 0.03 0-0.2 K/uL RDW Standard Deviation 46.1 36.4-46.3 fL RDW Coefficient of Variation 14.1 11.5-14.5 % Immature Granulocyte % (Auto) 0.4 % Immature Granulocyte # (Auto) 0.10 0.00-0.02 K/uL Large Platelets 1+ Sodium Level 133 136-145 mmol/L Potassium Level 4.0 3.5-5.1 mmol/L Chloride Level 91 98-107 mmol/L Carbon Dioxide Level 27 21-32 mmol/L Anion Gap 15.0 3-11 mmol/L Blood Urea Nitrogen 92 7-18 mg/dl Creatinine 5.60 0.60-1.20 mg/dl Est Creatinine Clear Calc Drug Dose 10.0 ml/min Estimated GFR () 8.1 Estimated GFR (Non- 7.0 BUN/Creatinine Ratio 16.5 10-20 Random Glucose 127 70-99 mg/dl Calcium Level 9.1 8.5-10.1 mg/dl Bedside Glucose 161 70-90 mg/dl Microbiology Results 07/04/16 Urine Culture, Received Pending
[2016-07-05] MEDS: DOCUSATE SODIUM 100 MG CAP PO PRN (20:33)
[2016-07-05] MEDS: METOPROLOL SUCC 50MG EXT REL TAB PO SCH (20:34)
[2016-07-05] MEDS ORDERED: DOCUSATE SODIUM 100 MG CAP PO SCH (21:00)
[2016-07-05] MEDS: CEFTRIAXONE SOD INJ 1 GM in DEXTROSE 5% ADD-VANTAGE 50ML 50 ML IV SCH (23:47)
[2016-07-06] VITALS (19 sets, daily range): BP systolic 97–184; BP diastolic 64–129; PULSE 66–106; TEMP 36.4–37.5; O2SAT 90–95
[2016-07-06] MEDS: INSULIN ASPART 100 UNITS/ML 3 ML PEN SC SCH ×4 (07:00→19:50)
--- NOTE | 2016-07-06 07:53 | Nephrology Progress Note ---
Nephrology Progress Note Date of Service: Jul 06, 2016. Subjective 70 yo female with hypertensive urgency and ckd stage 4 who presented with milly/ atn and creatinine has been trending up. pt not urinating well at this time. pt though is at side of bed and says she feels better today and eating breakfast. pt does not want any dialysis what so ever and says she is ready to . appears to be at peace with her decision. Objective Date Time Temp Pulse Resp B/P Pulse Ox O2 Delivery O2 Flow Rate FiO2 07/06/16 07:41 36.7 99 18 134/82 91 2.0 07/06/16 04:19 36.5 82 18 139/89 91 Nasal Cannula 2.0 07/06/16 04:15 91 Nasal Cannula 2.0 07/06/16 00:05 92 Nasal Cannula 2.0 07/05/16 23:52 37.1 86 18 115/71 92 2.0 07/05/16 20:15 91 Nasal Cannula 2.0 07/05/16 20:00 37.8 96 18 162/82 91 Nasal Cannula 2.0 07/05/16 16:29 36.7 77 18 136/95 91 Nasal Cannula 2.0 07/05/16 16:00 Nasal Cannula 2.0 07/05/16 12:00 Nasal Cannula 2.0 07/05/16 11:16 36.7 82 20 132/89 92 Nasal Cannula 2.0 07/05/16 09:22 82 98 07/05/16 08:06 36.4 89 20 142/87 92 Nasal Cannula 2.0 132/81 07/05/16 08:00 Nasal Cannula 2.0 Physical Exam: General-aaox3 Eyes-no scleral icterus ENT-mmm Neck-supple Lungs-cta Heart-irregular Abdomen-bs+ s/nt/nd Extremities-+1 edema Neuro-nonfocal Current Inpatient Medications Medications (Trade) Dose Ordered Sig/Nydia Route Start Time Stop Time Status Last Admin Dose Admin Nifedipine (Procardia Xl Tab) 90 mg QAM PO 07/05/16 09:00 08/04/16 08:59 07/05/16 09:37 90 MG Acetaminophen (Tylenol Tab) 650 mg Q4H PRN PO 07/04/16 02:15 08/03/16 02:14 07/05/16 20:33 650 MG Nitroglycerin (Nitrostat Tab) 0.4 mg UD PRN SL 07/04/16 02:15 08/03/16 02:14 Allopurinol (Zyloprim Tab) 450 mg DAILY PO 07/04/16 09:00 08/03/16 08:59 07/05/16 08:16 450 MG Famotidine (Pepcid Tab) 20 mg DAILY PO 07/04/16 09:00 08/03/16 08:59 07/05/16 08:16 20 MG Levetiracetam (Keppra Tab) 500 mg BID PO 07/04/16 09:00 08/03/16 08:59 07/05/16 20:32 500 MG Metoprolol Succinate (Toprol Xl Tab) 125 mg HS PO 07/04/16 21:00 08/03/16 20:59 07/05/16 20:34 125 MG Tiotropium [place] (Spiriva Handihaler Inhaler) 1 puff DAILY INH 07/04/16 09:00 08/03/16 08:59 07/05/16 08:15 1 PUFF Polyethylene (Miralax Powder Packet) 17 gm DAILY PRN PO 07/04/16 02:15 08/03/16 02:14 Clonidine HCl (Catapres Tab) 0.3 mg BID PO 07/04/16 09:00 08/03/16 08:59 07/05/16 20:34 0.3 MG Insulin Aspart (novoLOG ASPART) SLIDING SCALE If C... ACHS SC 07/04/16 07:00 08/03/16 06:59 Glucose (Glucose 40% Gel) 15-30 GRAMS 15 GRAMS... UD PRN PO 07/04/16 04:45 08/03/16 04:44 Glucose (Glucose Chew Tab) 4-8 Tablets 4 Tabl... UD PRN PO 07/04/16 04:45 08/03/16 04:44 Dextrose (Dextrose 50% 50ML Syringe) 25-50ML OF 50% DW IV FOR... UD PRN IV 07/04/16 04:45 08/03/16 04:44 Glucagon (Glucagon Inj) 1 mg UD PRN SQ 07/04/16 04:45 08/03/16 04:44 Tramadol HCl (Ultram Tab) FOR PAIN 25-50 MG 25 MG ... Q8H PRN PO 07/04/16 05:00 08/03/16 04:59 07/04/16 08:22 50 MG Metronidazole (Flagyl Tab) 500 mg TID PO 07/04/16 14:00 07/14/16 13:59 07/05/16 20:33 500 MG Miscellaneous Information (Pending Order) 1 ea DAILY@10 N/A 07/04/16 10:00 08/03/16 09:59 Hydralazine HCl 10 mg 10 mg Q6 PRN IV. 07/04/16 12:15 08/03/16 12:14 Ceftriaxone Sodium 1 gm/ Dextrose 50 ml @ 100 mls/hr Q24H IV 07/04/16 23:00 07/14/16 22:59 07/05/16 23:47 100 MLS/HR Sodium Chloride (Nss 1000ml) 1,000 ml @ 100 mls/hr Q10H IV 07/05/16 09:45 08/04/16 09:44 07/05/16 20:35 100 MLS/HR Bisacodyl (Dulcolax Tab) 5 mg BID PRN PO 07/05/16 11:30 08/04/16 11:29 Docusate Sodium (coLACE CAP) 100 mg BID PRN PO 07/05/16 21:00 08/04/16 20:59 07/05/16 20:33 100 MG Last 24 Hours Test 07/05/16 11:10 07/05/16 16:00 07/05/16 19:41 07/06/16 06:00 Bedside Glucose 161 mg/dl 138 mg/dl 159 mg/dl Test 07/06/16 06:52 Bedside Glucose 117 mg/dl Assessment & Plan MILLY/ATN-creatinine trending up, labs are pending for this am. have limited options. would consider short course of dialysis but pt is adamant no dialysis what so ever. pt knows she is going to . hoping creatinine starts to peak and trend down again. not uremic and lungs cta with no n/v and good appetite which is good. concerned though that if creatinine continues to trend up, pt will become uremic and confused and eventually pass away. HTN: bp is adequately controlled on current bp medications. no changes.
[2016-07-06] MEDS: CLONIDINE HCL 0.1 MG TAB PO SCH ×2 (07:55→20:35)
[2016-07-06] MEDS: TIOTROPIUM BROMIDE 5 PUFF/90 MCG INH INH SCH (07:55)
[2016-07-06] MEDS: SODIUM CHLORIDE 0.9% 1000ML 1,000 ML IV SCH (07:55)
[2016-07-06] MEDS: LEVETIRACETAM 500 MG TAB PO SCH ×2 (07:57→20:34)
[2016-07-06] MEDS: NIFEdipine 30 MG CR TAB PO SCH (07:57)
[2016-07-06] MEDS: ALLOPURINOL 300 MG TAB PO SCH (07:57)
[2016-07-06] MEDS: FAMOTIDINE 20 MG TAB PO SCH (07:59)
[2016-07-06] MEDS: METRONIDAZOLE 500 MG TAB PO SCH ×3 (08:00→20:35)
--- NOTE | 2016-07-06 10:02 | Progress Note ---
Internal Med Progress Note Date of Service: Jul 06, 2016. Provider Documentation: SUBJECTIVE: Patient is feeling depressed, saying that she will , though no suicidal ideations. Refused her labs today. Unable to void much. Had to be straight cath. No nausea, vomiting, chest pain, abd pain, SOB Leg swelling b/l much better compared to prior admission BP is better OBJECTIVE : Vital Signs-as noted below Exam: General-alert and awake and oriented. Not in distress ENT-normal hearing Lungs-cta b/l no wheezing or crackles Heart-s1 and s2 heard, regular rate and rhythm no murmurs Abdomen-soft bowel sounds present non tender no distension Extremities-Trace edema- improved significantly compared to last admission Neuro-No focal deficits Lab data as noted below. ASSESSMENT & PLAN: ASSESSMENT & PLAN: MILLY ON CKD-III -Baseline creatinine around 1.8, presented with 4.0 and now up to 5.60, refused AM labs. -Likely volume depletion secondary to nausea/vomiting in setting of chronic lasix use (recent admission-increased dose to help with diuresis/bp control)/ ATN with lowering BP -IV fluids started at 100 cc/hour per nephrology on 07/05/16 -Monitor closely HYPERTENSIVE URGENCY - BP Improved Secondary to not taking meds due to nausea/vomiting. Known for difficulty controlling BP for years. Recent admission 06/28/16, prolonged stay due to difficult to manage BP, plus non compliant with her home medications -Recent admission changes: Increased lasix to 80 mg BID, Clonidine increased to 0.3 mg BID, Nifedipine 90 mg daily added -Continue with Clonidine 0.3 mg BID, Nifedipine 90 mg daily, Metoprolol 125 mg ( home meds), IV Hydralazine PRN. Held lasix as above -Monitor S/P NAUSEA/VOMITING- Resolved Possibly acute gastroenteritis vs related to UTI/Possible pyelo with ? left perinephric stranding on ct scan ? No diarrhea per patient, constipation + no BM for few days. C diff still pending collection -Advance diet to regular -CT abd/pelvis- 1. Asymmetric renal size, likely indicating mild right renal atrophy2. Nonobstructing right renal calculus3. Nonspecific left-sided perinephric stranding4. No evidence of bowel obstruction. No evidence of free air5. 2 cm left adrenal nodule6. Complex fat-containing bilobed umbilical hernia with mild infiltration of the fat UTI- UA +VE, CT - left perinephric stranding. Pyelo ?? -IV Rocephin (Day 3)- Discontinue and change it to Ciprofloxacin BID -IV fluids -Urine c/S- E coli DEPRESSION Depressed due to personal stressors. Refusing labs, says that "anyways I am going to ". -Takes her medications on and off -Psychiatry consult placed S/P TRANSIENT ENCEPHALOPATHY - Resolved, back to baseline Likely secondary to Hypertensive urgency secondary to missed medication (hx med non-compliance as per records) Patient says she did not take her medications secondary to nausea/vomiting -CT head- stable small focus of hemorrhage as prior scans - old and not new CHRONIC DIASTOLIC CHF -Per recent Echo EF of 50-55%. -Recently increased diuretics (last week during last admission) for better control of BP- lasix 80 mg BID. Hold due to above -Monitor closely CAD S/P STENTING -Stable COPD as per records -Stable with no signs of exacerbation -Monitor HX OF CVA (Recent ICH, Hx of cerebral amyloid angiopathy as per records, Cerebellar infarct per recent CT scan last admission) This admission- stable small hemorrhage old with no new changes DM2, well controlled as of recent HgA1c recent hba1c 5.9 -Not on meds -ISS, Accuchecks DVT PROPHYLAXIS scds re: hemorrhage DISPOSITION PT/OT monitor in tele Vital Signs: Date Time Temp Pulse Resp B/P Pulse Ox O2 Delivery O2 Flow Rate FiO2 07/06/16 08:00 Nasal Cannula 2.0 07/06/16 07:41 36.7 99 18 134/82 91 2.0 07/06/16 04:19 36.5 82 18 139/89 91 Nasal Cannula 2.0 07/06/16 04:15 91 Nasal Cannula 2.0 07/06/16 00:05 92 Nasal Cannula 2.0 07/05/16 23:52 37.1 86 18 115/71 92 2.0 07/05/16 20:15 91 Nasal Cannula 2.0 07/05/16 20:00 37.8 96 18 162/82 91 Nasal Cannula 2.0 07/05/16 16:29 36.7 77 18 136/95 91 Nasal Cannula 2.0 07/05/16 16:00 Nasal Cannula 2.0 07/05/16 12:00 Nasal Cannula 2.0 07/05/16 11:16 36.7 82 20 132/89 92 Nasal Cannula 2.0 Lab Results: Results Past 24 Hours Test 07/05/16 11:10 07/05/16 16:00 07/05/16 19:41 07/06/16 06:00 Range/Units Bedside Glucose 161 138 159 70-90 mg/dl Test 07/06/16 06:52 Range/Units Bedside Glucose 117 70-90 mg/dl
[2016-07-06 11:49] LABS: HEMATOCRIT 39.2 % (37-47); MEAN CELL VOLUME 88.5 fL (80-100); MEAN CORPUSCULAR HEMOGLOBIN 31.6 pg (25-34); MEAN CORPUSCULAR HGB CONC 35.7 g/dl (32-36); MEAN PLATELET VOLUME 12.8 fL (7.4-10.4); PLATELET COUNT 104 K/uL (130-400); RED BLOOD COUNT 4.43 M/uL (4.2-5.4); WHITE BLOOD COUNT 21.53 K/uL (4.8-10.8)
[2016-07-06 12:37] LABS: BUN/CREATININE RATIO 16.9 (10-20); CALCIUM 8.4 mg/dl (8.5-10.1); CREATININE 6.6 mg/dl (0.60-1.20); POTASSIUM 4.1 mmol/L (3.5-5.1)
--- NOTE | 2016-07-06 13:26 | Psychiatric Consultation ---
Consultation Identifying Data 70-year-old white female with no psychiatric history who lives at [facility] and is admitted with altered mental status. Psychiatry was consulted for depression. Chief Complaint "I feel better now". History of Present Illness The patient was admitted 07/04/2016 after she presented with her daughter for altered mental status. She has multiple medical problems, including coronary artery disease, COPD, hypertension, multiple strokes, A. fib, chronic kidney disease, diabetes and medication noncompliance. She was admitted 2 weeks ago for hypertensive urgency and was seen by nephrology and neurology. She was diagnosed with encephalopathy, hypertensive urgency, acute renal failure on chronic kidney disease, and chronic diastolic heart failure. Nephrology saw her this morning and recommended dialysis, which she initially declined, stating that she was ready to . On my assessment, multiple family members are just finishing a visit with her. She states that her mood is much improved since talking to her family, stating that she is now willing to follow treatment recommendations, and is hopeful that she will feel better once she has dialysis. She states that she has been frustrated with her multiple medical problems and not feeling well, which led to her reluctance to continue with the recommended care. She denies that she's ever been depressed for more than a day or 2, but admits that her mood has been low since she was admitted to the hospital 2 days ago. She attributes this to her frustration with her medical problems, and to not feeling well. She endorses decreased energy, but denies all other symptoms of depression. She scored a 10 on the PHP or 9, indicating mild to moderate depression. She denies anhedonia, sleep difficulties, impaired concentration, and suicidality. She does not want to pursue treatment for her mood at this time. She denies symptoms of anxiety, psychosis, shorty, and thoughts of harming anyone else. Her daughter reported to staff that the patient has been more confused lately, and has been frustrated the last few months due to multiple medical problems. Past Psychiatric History Current OP Treatment: no current treatment Prior OP Treatment: no prior treatment Prior Psych Hospitalizations: other (none) Patient denies a history of psychiatric diagnoses, suicide attempts, self injury , violence towards others, or previous psychotropic medications. Past Medical/Surgical History Problem List: (1) Hypertensive encephalopathy (2) Pulmonary edema (3) MILLY (acute kidney injury) (4) GERD (gastroesophageal reflux disease) (5) IBS (irritable bowel syndrome) (6) HTN (hypertension) (7) CAD (coronary artery disease) (8) Dyslipidemia (9) Atrial fibrillation (10) CKD (chronic kidney disease), stage IV (11) COPD, severe (12) DM type 2 (diabetes mellitus, type 2) Allergies Allergies: Coded Allergies: Verapamil (Verified Allergy, Mild, UNKNOWN, 06/23/16) INFO FROM [facility] [place] Lisinopril (Verified Adverse Reaction, Mild, COUGH, 06/23/16) Home Medications Scheduled Allopurinol (Zyloprim), 450 MG PO DAILY Chlorhexidine Gluconate (Mouth (Periogard), 15 ML PO BID Clonidine Hcl (Catapres), 0.3 MG PO BID Famotidine (Pepcid), 20 MG PO DAILY Furosemide (Lasix), 80 MG PO BID Levetiracetam (Keppra), 500 MG PO BID Metoprolol Succ (Toprol Xl) (Toprol-Xl ), 125 MG PO HS Nifedipine (Adalat cc), 90 MG PO QAM Potassium Chloride (Micro-K Ext Rel), 20 MEQ PO DAILY Tiotropium [place] (Spiriva Handihaler), 1 CAP INH DAILY Scheduled PRN Acetaminophen Tab (Tylenol), 650 MG PO Q4 PRN for Pain Docusate Sodium (Docusate Sodium), 1 CAP PO BID PRN for Constipation Nitroglycerin (Nitrostat), 0.4 MG UT UD PRN for Chest Pain Polyethylene Glycol 3350 (Miralax), 17 GM PO DAILY PRN for Constipation Tramadol (Ultram), 50 MG PO Q8H PRN for Pain Family History FH: stomach cancer FATHER Patient denies a family history of mental illness, substance abuse, or suicide Alcohol Use Alcohol Use In Past 12 Months: No Denies use of alcohol or illicit drugs Personal History Additional Comments: The patient lives at [facility] in [place]. She has multiple family members who are supportive. She was for 28 years, but her in 1992. 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 She is a high school graduate. She endorses hindu believes, and denies legal problems and a history of abuse. Review of Systems 10 systems were reviewed and are negative except as stated above. Examination Vital Signs Vital Signs Past 12 Hours Date Time Temp Pulse Resp B/P Pulse Ox O2 Delivery O2 Flow Rate FiO2 07/06/16 12:00 Nasal Cannula 2.0 07/06/16 11:23 37.0 93 20 147/93 91 2.0 07/06/16 08:00 Nasal Cannula 2.0 07/06/16 07:41 36.7 99 18 134/82 91 2.0 07/06/16 04:19 36.5 82 18 139/89 91 Nasal Cannula 2.0 07/06/16 04:15 91 Nasal Cannula 2.0 Laboratory Results Last 24 Hours Test 07/05/16 16:00 07/05/16 19:41 07/06/16 06:52 07/06/16 10:57 Bedside Glucose 138 mg/dl 159 mg/dl 117 mg/dl 133 mg/dl Test 07/06/16 11:40 White Blood Count 21.53 K/uL Red Blood Count 4.43 M/uL Hemoglobin 14.0 g/dL Hematocrit 39.2 % Mean Corpuscular Volume 88.5 fL Mean Corpuscular Hemoglobin 31.6 pg Mean Corpuscular Hemoglobin Concent 35.7 g/dl RDW Standard Deviation 45.3 fL RDW Coefficient of Variation 13.9 % Platelet Count 104 K/uL Mean Platelet Volume 12.8 fL Sodium Level 130 mmol/L Potassium Level 4.1 mmol/L Chloride Level 90 mmol/L Carbon Dioxide Level 25 mmol/L Anion Gap 15.0 mmol/L Blood Urea Nitrogen 112 mg/dl Creatinine 6.60 mg/dl Est Creatinine Clear Calc Drug Dose 8.6 ml/min Estimated GFR () 6.7 Estimated GFR (Non- 5.7 BUN/Creatinine Ratio 16.9 Random Glucose 151 mg/dl Calcium Level 8.4 mg/dl Mental Examination During interview pt is: cooperative, other (appears tired) Appearance: appropriately dressed (in a hospital gown) Eye contact is: good Motor behavior is: no abnormal motor movements Speech: normal in rate, rhythm & volume Affect: other (appropriate and reactive) Mood is: other ("better now") Thought process: goal directed Thought content: reality based without delusions Suicidal thought are: denied Homicidal thoughts are: denied Hallucinations: denies auditory, denies visual Cognition: language grossly intact Intelligence estimated to be: average Insight: fair Judgement: fair Impression / Recommendations Impression The patient reports mild depressive symptoms, but states her mood is better after talking with her family, and she is now willing to follow through with dialysis. She is not interested in mental health treatment, but we reviewed the symptoms of depression, and encouraged her to talk to her physician if these are worsening.
--- NOTE | 2016-07-06 14:39 | Surgery Consultation ---
Consultation Date of Service Jul 06, 2016. (Pamela Herrera, BEAR) Chief Complaint ESRD, need permcath (Pamela Herrera PA-C) History of Present Illness The patient is a 70 year old female with multiple medical problems, including acute on chronic renal failure, seen in consultation today for placement of permcath for initiation of HD. Pt admits fatigue/malaise. Denies DURAN, fever, chills, chest pain, SOB, abd pain, N/V, rest pain, claudication, other complaints. (Pamela Herrera, BEAR) Vitals Vital Signs Past 12 Hours Date Time Temp Pulse Resp B/P Pulse Ox O2 Delivery O2 Flow Rate FiO2 07/06/16 14:24 37.0 93 20 147/93 95 Nasal Cannula 2.0 07/06/16 12:00 Nasal Cannula 2.0 07/06/16 11:23 37.0 93 20 147/93 91 2.0 07/06/16 08:00 Nasal Cannula 2.0 07/06/16 07:41 36.7 99 18 134/82 91 2.0 07/06/16 04:19 36.5 82 18 139/89 91 Nasal Cannula 2.0 07/06/16 04:15 91 Nasal Cannula 2.0 (Pamela Herrera, BEAR) Allergies Coded Allergies: Verapamil (Verified Allergy, Mild, UNKNOWN, 06/23/16) INFO FROM [facility] [place] Lisinopril (Verified Adverse Reaction, Mild, COUGH, 06/23/16) Home Medications Scheduled Allopurinol (Zyloprim), 450 MG PO DAILY Chlorhexidine Gluconate (Mouth (Periogard), 15 ML PO BID Clonidine Hcl (Catapres), 0.3 MG PO BID Famotidine (Pepcid), 20 MG PO DAILY Furosemide (Lasix), 80 MG PO BID Levetiracetam (Keppra), 500 MG PO BID Metoprolol Succ (Toprol Xl) (Toprol-Xl ), 125 MG PO HS Nifedipine (Adalat cc), 90 MG PO QAM Potassium Chloride (Micro-K Ext Rel), 20 MEQ PO DAILY Tiotropium [place] (Spiriva Handihaler), 1 CAP INH DAILY Scheduled PRN Acetaminophen Tab (Tylenol), 650 MG PO Q4 PRN for Pain Docusate Sodium (Docusate Sodium), 1 CAP PO BID PRN for Constipation Nitroglycerin (Nitrostat), 0.4 MG UT UD PRN for Chest Pain Polyethylene Glycol 3350 (Miralax), 17 GM PO DAILY PRN for Constipation Tramadol (Ultram), 50 MG PO Q8H PRN for Pain Problem List Medical Problems: (1) Atrial fibrillation (2) CAD (coronary artery disease) (3) CKD (chronic kidney disease), stage IV (4) COPD, severe (5) Depression (6) DM type 2 (diabetes mellitus, type 2) (7) Dyslipidemia (8) Encephalopathy (9) GERD (gastroesophageal reflux disease) (10) History of intracranial hemorrhage (11) HTN (hypertension) (12) IBS (irritable bowel syndrome) (13) Nontraumatic intracerebral hemorrhage Surgical Problems: (1) H/O sinus surgery (2) History of total left knee replacement (3) S/P cholecystectomy (Pamela Herrera PA-C) Surgical / Medical History Hx Cardiac Surgery: Yes (cardiac cath 2014) Hx Abdominal Surgery: Yes (cholecystectomy) Hx Cancer Surgery: No Hx Thoracic Surgery: No Hx Orthopedic: Yes (L TKA) Hx Urinary Tract Surgery: No HX Other Surgery: Yes (sinus surgery) (Pamela Herrera, BLAINEC) Family History FH: stomach cancer FATHER (Pamela Herrera PA-C) FH: stomach cancer FATHER (Antelmo Kirk M.D.) Social History Smoking Status: Never Smoker Hx Tobacco Use In Past Year?: No Hx Alcohol Use - Type & Amnt: No Hx Substance Use -Type & Amnt: No (Pamela Herrera, BLAINEC) Review of Systems Constitutional: + malaise, No chills, No fever Skin: No change in color Eyes: No visual changes ENMT: No sore throat Respiratory: + WISEMAN, No cough, No hemoptysis, No short of breath Cardiovascular: + edema, No chest pain, No intermittent claudication, No palpitations, No syncope Gastrointestinal: No abdominal pain, No nausea, No vomiting Genitourinary - Female: No dysuria, No hematuria Neurologic: + lethargy, No dizziness, No headache (Pamela Herrera, PA-C) Physical Exam Constitutional: General Apperance: well-nourished, well-developed, obese (pale) Level of Distress: NAD, acutely ill, chronically ill Psychiatric: Mental Status: lethargic (falls sleep easily, but easily roused), depressed Orientation: oriented except where noted, to time, to place, to person Memory: recent memory abnormal (vague), remote memory abnormal (vague) Head: normocephalic, atraumatic Eyes: EOM: EOMI ENMT: normal ENT inspection, hearing grossly normal Neck: supple, trachea midline Lungs: Respiratory effort: no dyspnea Auscultation: no wheezing, no rhonchi, decreased breath sounds Cardiovascular: Heart Auscultation: no rubs, no gallops, pertinent finding (irregular) Peripheral Pulses: Pulses: full and equal, in all extremities except if noted Bruits: none appreciated Carotid Pulse: normal on the left, normal on the right Brachial Pulses: normal on the left, normal on the right Radial Pulse: normal on the left, normal on the right Femoral Pulse: normal on the left, normal on the right Posterior Tibialis Pulse: decreased on the left, decreased on the right Dorsalis Pedis Pulse: decreased on the left, decreased on the right Abdomen: Bowel Sounds: normal Inspection & Palpation: soft, distended (secondary to body habitus) Musculoskeletal: normal strength (5/5 throughout), normal tone Extremities: Upper Right: no cyanosis, no varicosities, edema Upper Left: no cyanosis, no varicosities, no palpable cord, edema Lower Right: no cyanosis, no palpable cord, edema, varicosities Lower Left: no cyanosis, no palpable cord, edema, varicosities Neurologic: Cranial Nerves: grossly intact Sensation: grossly intact (Pamela Herrera, BLAINEC) Assessment and Plan ASSESSMENT and PLAN: End stage renal disease Pt for permcath insertion later this afternoon by Dr Kirk. Procedure, risks, benefits, and alternatives discussed with pt, she expresses understanding and agreement. (Pamela Herrera, BLAINEC) Patient was seen, examined, and chart reviewed. Agree with exam and treatment plan of the Vascular PA. Patient for permcath insertion. I have discussed the risks options and benefits of the procedure with the patient. The patient understands the risks options and benefits and agrees to the procedure. (Antelmo Kirk M.D.)
[2016-07-06] MEDS ORDERED: CEFAZOLIN IV 1,000 MG in DEXTROSE 5% 50ML 50 ML IV ONE (14:45)
[2016-07-06] MEDS ORDERED: CEFAZOLIN 2000 MG/60 ML D5W IV SCH (15:00)
--- NOTE | 2016-07-06 15:01 | Procedure Note ---
Pre-Mod Sedation Assessment General Date of Moderate Sedation: Jul 06, 2016. Vital Signs: Vital Signs Past 12 Hours Date Time Temp Pulse Resp B/P Pulse Ox O2 Delivery O2 Flow Rate FiO2 07/06/16 14:24 37.0 93 20 147/93 95 Nasal Cannula 2.0 07/06/16 12:00 Nasal Cannula 2.0 07/06/16 11:23 37.0 93 20 147/93 91 2.0 07/06/16 08:00 Nasal Cannula 2.0 07/06/16 07:41 36.7 99 18 134/82 91 2.0 07/06/16 04:19 36.5 82 18 139/89 91 Nasal Cannula 2.0 07/06/16 04:15 91 Nasal Cannula 2.0 Pre-Sedation Airway Assessment Oral Cavity: Dentures Short Thick Neck: No Hx of Sleep Apnea: No Smoking Status: Never Smoker Mallampati Classification: Class I ASA Classification: Class II Notes The planned sedation has been discussed with the patient and consent obtained. I have identified the patient, determined the appropriateness of sedation and have assessed the patient immediately prior to the procedure. All medicine(s) and interventions are by my order.
[2016-07-06] MEDS ORDERED: FENTANYL CITRATE INJ 50 MCG/1 ML 2 ML VIAL ONE (15:32)
[2016-07-06] MEDS ORDERED: MIDAZOLAM HCL 1 MG/ML 2ML VIAL ONE (15:33)
[2016-07-06] MEDS ORDERED: HEPARIN SOD (PORCINE) 5000 UNIT/ML 1 ML VIAL ONE (15:44)
[2016-07-06] MEDS ORDERED: HEPARIN SOD (PORCINE) 5000 UNIT/ML 1 ML VIAL IV ONE (16:13)
[2016-07-06] MEDS ORDERED: LIDOCAINE HCL 1% 20 ML VIAL SQ ONE (16:13)
--- NOTE | 2016-07-06 16:15 | [facility] Post Operative Brief Note ---
Immediate Operative Summary Operative Date Jul 06, 2016. Pre-Operative Diagnosis End stage renal disease Post-Operative Diagnosis Same Procedure(s) Performed Insertion of Perm Catheter, Right Internal Jugular Approach Ultrasound Localization of RIght Internal Jugular Vein FLuoroscopy for Positioning Surgeon Reagan Individual Small Group Instructor Surgeon(s) Ramiro Estimated Blood Loss 5 Findings tip in distal SVC Specimens None Anesthesia Local Complication(s) None Disposition
--- NOTE | 2016-07-06 16:44 | DIAGNOSTIC IMAGING REPORT ---
DATE OF PROCEDURE: 07/06/2016 PREOPERATIVE DIAGNOSIS: End-stage renal disease with need for a long-term dialysis access. POSTOPERATIVE DIAGNOSIS: Same. PROCEDURE: Insertion of right internal jugular tunneled dialysis (PermCath) catheter. SURGEON: Antelmo Kirk. DRIVER EXAMINER: Dr. Anjel Rubio MD ANESTHESIA: Local anesthesia only. ESTIMATED BLOOD LOSS: 5 mL. INDICATIONS: This is a 70-year-old female currently in the hospital with worsening kidney dysfunction. It was deemed that she would need urgent hemodialysis access. PermCath was indicated for dialysis access. DESCRIPTION OF PROCEDURE: The patient was brought to the endovascular suite and placed in the supine position. The right neck and chest wall were prepped and draped in normal sterile fashion. Time out was performed and all parties agreed to correct patient and procedure to be performed. Under ultrasound guidance, the right internal jugular vein was accessed on the first attempt. A wire was passed down to the level of the inferior vena cava. Next, 1 cm transverse skin incision was made over the right anterior chest. Tunnel was created using local anesthetic. The catheter was brought onto the field and after being flushed. It was passed from the chest wall incision up to the insertion site at the neck. Next, the internal jugular vein access site was dilated with the help of dilators. The large insertion dilator sheath was then inserted. The tunnel catheter was then inserted through this gradually. There was a small amount of kinking on a completion x-ray. For this reason the wire was reinserted and the catheter was straightened out. It was advanced to the level of the cavoatrial junction. At completion, a fluoroscopic image showed the catheter to be in good position. All the ports were flushed. They flushed easily. The tips of the catheter were instilled with concentrated heparin solution. The tunnel catheter was sutured in place. The right skin neck incision was sutured and closed with Dermabond. The patient was awakened and transferred to recovery room in satisfactory condition with no apparent complications. IDr. Kirk was present and scrubed for the entire procedure. [facility]
[2016-07-06] MEDS: CIPROFLOXACIN 250 MG TAB PO SCH (20:36)
[2016-07-06] MEDS: METOPROLOL SUCC 50MG EXT REL TAB PO SCH (20:36)
[2016-07-07] VITALS (31 sets, daily range): BP systolic 117–164; BP diastolic 72–105; PULSE 57–103; TEMP 36.5–37.4; O2SAT 89–98
[2016-07-07] MEDS: ACETAMINOPHEN 325 MG TAB PO PRN (06:33)
[2016-07-07 06:51] LABS: HEMATOCRIT 38.3 % (37-47); MEAN CELL VOLUME 87.6 fL (80-100); MEAN CORPUSCULAR HEMOGLOBIN 31.6 pg (25-34); MEAN PLATELET VOLUME 12.3 fL (7.4-10.4); PLATELET COUNT 137 K/uL (130-400); RED BLOOD COUNT 4.37 M/uL (4.2-5.4); WHITE BLOOD COUNT 19.88 K/uL (4.8-10.8)
[2016-07-07 07:34] LABS: BUN/CREATININE RATIO 14.8 (10-20); CALCIUM 8.5 mg/dl (8.5-10.1); CREATININE 5.7 mg/dl (0.60-1.20); POTASSIUM 4.2 mmol/L (3.5-5.1)
[2016-07-07] MEDS: INSULIN ASPART 100 UNITS/ML 3 ML PEN SC SCH ×4 (07:44→20:29)
[2016-07-07] MEDS: NIFEdipine 30 MG CR TAB PO SCH (08:27)
[2016-07-07] MEDS: DOCUSATE SODIUM 100 MG CAP PO PRN (08:27)
[2016-07-07] MEDS: CLONIDINE HCL 0.1 MG TAB PO SCH ×2 (08:28→20:12)
[2016-07-07] MEDS: ALLOPURINOL 300 MG TAB PO SCH (08:28)
[2016-07-07] MEDS: CIPROFLOXACIN 250 MG TAB PO SCH ×2 (08:29→20:11)
[2016-07-07] MEDS: FAMOTIDINE 20 MG TAB PO SCH (08:29)
[2016-07-07] MEDS: METRONIDAZOLE 500 MG TAB PO SCH ×3 (08:29→20:11)
[2016-07-07] MEDS: LEVETIRACETAM 500 MG TAB PO SCH ×2 (08:29→20:12)
[2016-07-07] MEDS: TIOTROPIUM BROMIDE 5 PUFF/90 MCG INH INH SCH (08:32)
--- NOTE | 2016-07-07 09:09 | Nephrology Progress Note ---
Nephrology Progress Note Date of Service: Jul 07, 2016. Subjective 70 yo female with hypertensive urgency and milly on ckd stage 4 with atn. creatinine was trending up and had tunneled line placed and had two hour treatment last night. appetite still decreased but otherwise doing well. tolerated dialysis well. has grove catheter in place wtih 400 cc overnight. Objective Date Time Temp Pulse Resp B/P Pulse Ox O2 Delivery O2 Flow Rate FiO2 07/07/16 08:00 Nasal Cannula 07/07/16 07:49 36.5 95 18 125/84 90 4.0 07/07/16 04:00 Nasal Cannula 2.0 07/07/16 03:57 37.2 95 132/75 07/07/16 03:24 36.9 92 22 134/84 89 Nasal Cannula 2.0 07/07/16 02:08 37.0 90 131/78 07/07/16 01:45 95 139/77 07/07/16 01:30 98 142/75 07/07/16 01:15 95 138/76 07/07/16 01:00 96 164/85 07/07/16 00:45 86 128/72 07/07/16 00:30 86 119/72 07/07/16 00:15 89 144/88 07/07/16 00:01 83 131/81 07/06/16 23:45 83 133/81 07/06/16 23:29 36.4 81 18 173/100 92 Nasal Cannula 2.0 07/06/16 23:00 Nasal Cannula 2.0 07/06/16 20:09 37.1 93 20 180/122 92 Nasal Cannula 2.0 07/06/16 20:04 Nasal Cannula 2.0 07/06/16 19:27 36.4 66 18 97/64 94 Room Air 07/06/16 19:12 37.3 89 18 175/123 90 Nasal Cannula 2.0 07/06/16 18:30 37.2 106 20 184/129 94 Nasal Cannula 2.0 07/06/16 18:00 37.3 97 20 181/115 93 Nasal Cannula 2.0 07/06/16 17:45 37.3 92 20 169/82 93 Nasal Cannula 2.0 07/06/16 17:30 101 20 170/93 94 Nasal Cannula 2.0 07/06/16 17:15 89 20 173/116 92 Nasal Cannula 2.0 07/06/16 17:00 37.5 103 20 178/127 93 Nasal Cannula 2.0 07/06/16 16:45 37.5 103 20 178/127 95 Nasal Cannula 2.0 07/06/16 16:00 Nasal Cannula 2.0 07/06/16 15:27 37.0 93 20 147/93 95 Nasal Cannula 2.0 07/06/16 14:24 37.0 93 20 147/93 95 Nasal Cannula 2.0 07/06/16 12:00 Nasal Cannula 2.0 07/06/16 11:23 37.0 93 20 147/93 91 2.0 Physical Exam: General-aaox3 Eyes-no scleral icterus ENT-mmm Neck-supple Lungs-clear Heart-irregular Abdomen-bs+ s/nt/nd, +ventral hernia Extremities-no edema Neuro-nonfocal Current Inpatient Medications Medications (Trade) Dose Ordered Sig/Nydia Route Start Time Stop Time Status Last Admin Dose Admin Nifedipine (Procardia Xl Tab) 90 mg QAM PO 07/05/16 09:00 08/04/16 08:59 07/07/16 08:27 90 MG Acetaminophen (Tylenol Tab) 650 mg Q4H PRN PO 07/04/16 02:15 08/03/16 02:14 07/07/16 06:33 650 MG Nitroglycerin (Nitrostat Tab) 0.4 mg UD PRN SL 07/04/16 02:15 08/03/16 02:14 Allopurinol (Zyloprim Tab) 450 mg DAILY PO 07/04/16 09:00 08/03/16 08:59 07/07/16 08:28 450 MG Famotidine (Pepcid Tab) 20 mg DAILY PO 07/04/16 09:00 08/03/16 08:59 07/07/16 08:29 20 MG Levetiracetam (Keppra Tab) 500 mg BID PO 07/04/16 09:00 08/03/16 08:59 07/07/16 08:29 500 MG Metoprolol Succinate (Toprol Xl Tab) 125 mg HS PO 07/04/16 21:00 08/03/16 20:59 07/06/16 20:36 125 MG Tiotropium [place] (Spiriva Handihaler Inhaler) 1 puff DAILY INH 07/04/16 09:00 08/03/16 08:59 07/07/16 08:32 1 PUFF Polyethylene (Miralax Powder Packet) 17 gm DAILY PRN PO 07/04/16 02:15 08/03/16 02:14 Clonidine HCl (Catapres Tab) 0.3 mg BID PO 07/04/16 09:00 08/03/16 08:59 07/07/16 08:28 0.3 MG Insulin Aspart (novoLOG ASPART) SLIDING SCALE If C... ACHS SC 07/04/16 07:00 08/03/16 06:59 Glucose (Glucose 40% Gel) 15-30 GRAMS 15 GRAMS... UD PRN PO 07/04/16 04:45 08/03/16 04:44 Glucose (Glucose Chew Tab) 4-8 Tablets 4 Tabl... UD PRN PO 07/04/16 04:45 08/03/16 04:44 Dextrose (Dextrose 50% 50ML Syringe) 25-50ML OF 50% DW IV FOR... UD PRN IV 07/04/16 04:45 08/03/16 04:44 Glucagon (Glucagon Inj) 1 mg UD PRN SQ 07/04/16 04:45 08/03/16 04:44 Tramadol HCl (Ultram Tab) FOR PAIN 25-50 MG 25 MG ... Q8H PRN PO 07/04/16 05:00 08/03/16 04:59 07/04/16 08:22 50 MG Metronidazole (Flagyl Tab) 500 mg TID PO 07/04/16 14:00 07/14/16 13:59 07/07/16 08:29 500 MG Miscellaneous Information (Pending Order) 1 ea DAILY@10 N/A 07/04/16 10:00 08/03/16 09:59 Hydralazine HCl (HydrALAZINE INJ) 10 mg Q6 PRN IV. 07/04/16 12:15 08/03/16 12:14 Bisacodyl (Dulcolax Tab) 5 mg BID PRN PO 07/05/16 11:30 08/04/16 11:29 Docusate Sodium (coLACE CAP) 100 mg BID PRN PO 07/05/16 21:00 08/04/16 20:59 07/07/16 08:27 100 MG Ciprofloxacin (Ciprofloxacin Tab) 250 mg BID PO 07/06/16 21:00 07/09/16 20:59 07/07/16 08:29 250 MG Last 24 Hours Test 07/06/16 10:57 07/06/16 11:40 07/06/16 17:13 07/06/16 19:43 Bedside Glucose 133 mg/dl 133 mg/dl 149 mg/dl White Blood Count 21.53 K/uL Red Blood Count 4.43 M/uL Hemoglobin 14.0 g/dL Hematocrit 39.2 % Mean Corpuscular Volume 88.5 fL Mean Corpuscular Hemoglobin 31.6 pg Mean Corpuscular Hemoglobin Concent 35.7 g/dl RDW Standard Deviation 45.3 fL RDW Coefficient of Variation 13.9 % Platelet Count 104 K/uL Mean Platelet Volume 12.8 fL Sodium Level 130 mmol/L Potassium Level 4.1 mmol/L Chloride Level 90 mmol/L Carbon Dioxide Level 25 mmol/L Anion Gap 15.0 mmol/L Blood Urea Nitrogen 112 mg/dl Creatinine 6.60 mg/dl Est Creatinine Clear Calc Drug Dose 8.6 ml/min Estimated GFR () 6.7 Estimated GFR (Non- 5.7 BUN/Creatinine Ratio 16.9 Random Glucose 151 mg/dl Calcium Level 8.4 mg/dl Test 07/07/16 06:40 White Blood Count 19.88 K/uL Red Blood Count 4.37 M/uL Hemoglobin 13.8 g/dL Hematocrit 38.3 % Mean Corpuscular Volume 87.6 fL Mean Corpuscular Hemoglobin 31.6 pg Mean Corpuscular Hemoglobin Concent 36.0 g/dl RDW Standard Deviation 45.2 fL RDW Coefficient of Variation 13.9 % Platelet Count 137 K/uL Mean Platelet Volume 12.3 fL Sodium Level 133 mmol/L Potassium Level 4.2 mmol/L Chloride Level 95 mmol/L Carbon Dioxide Level 25 mmol/L Anion Gap 13.0 mmol/L Blood Urea Nitrogen 84 mg/dl Creatinine 5.70 mg/dl Est Creatinine Clear Calc Drug Dose 10.0 ml/min Estimated GFR () 7.9 Estimated GFR (Non- 6.9 BUN/Creatinine Ratio 14.8 Random Glucose 141 mg/dl Calcium Level 8.5 mg/dl Assessment & Plan MILLY/ATN-started on dialysis yesterday. hoping this is temporary and that the kidney function may eventually recover. pt is urinating ok. would like to do another dialysis treatment today and start low dose normal saline at 50cc/hr. urine is dark and no signs of volume overload. lungs cta.
[2016-07-07] MEDS: SODIUM CHLORIDE 0.9% 1000ML 1,000 ML IV SCH (09:30)
[2016-07-07 11:14] LABS: HEPATITIS B AB NEG
--- NOTE | 2016-07-07 13:09 | Progress Note ---
Internal Med Progress Note Date of Service: Jul 07, 2016. Provider Documentation: SUBJECTIVE: Patient did agree for dialysis- received it yesterday and today. Receiving dialysis today No nausea, vomiting, chest pain, abd pain, SOB Leg swelling b/l much better OBJECTIVE : Vital Signs-as noted below Exam: General-alert and awake and oriented. Not in distress ENT-normal hearing Lungs-cta b/l no wheezing or crackles Heart-s1 and s2 heard, regular rate and rhythm no murmurs. Tunneled line + Abdomen-soft bowel sounds present non tender no distension Extremities-Trace edema- improved significantly compared to last admission Neuro-No focal deficits Lab data as noted below. ASSESSMENT & PLAN: ASSESSMENT & PLAN: MILLY ON CKD-III - Worsened -Baseline creatinine around 1.8, presented with 4.0 --> 5.60-->6.60 -Likely volume depletion secondary to nausea/vomiting in setting of chronic lasix use (recent admission-increased dose to help with diuresis/bp control)/ ATN with lowering BP -Started on dialysis on 07/06/16 - received it yesterday and today -IV fluids at 50 cc/hour per Nephrology -Monitor closely HYPERTENSIVE URGENCY - BP Improved Secondary to not taking meds due to nausea/vomiting. Known for difficulty controlling BP for years. Recent admission 06/28/16, prolonged stay due to difficult to manage BP, plus non compliant with her home medications -Last admission changes: Increased lasix to 80 mg BID, Clonidine increased to 0.3 mg BID, Nifedipine 90 mg daily added -Continue with Clonidine 0.3 mg BID, Nifedipine 90 mg daily, Metoprolol 125 mg ( home meds), IV Hydralazine PRN. Held lasix. -Monitor S/P NAUSEA/VOMITING- Resolved Possibly acute gastroenteritis vs related to UTI/Possible pyelo with ? left perinephric stranding on ct scan ? No diarrhea per patient, constipation + no BM for few days. C diff still pending collection -Tolerating diet well -CT abd/pelvis- 1. Asymmetric renal size, likely indicating mild right renal atrophy2. Nonobstructing right renal calculus3. Nonspecific left-sided perinephric stranding4. No evidence of bowel obstruction. No evidence of free air5. 2 cm left adrenal nodule6. Complex fat-containing bilobed umbilical hernia with mild infiltration of the fat UTI-E COLI UA +VE, CT - left perinephric stranding. Pyelo ?? -S/P IV Rocephin (Day 3)- Discontinued and changed it to Ciprofloxacin BID (Day 4) -Urine c/S- E coli DEPRESSION, MILD - Depressed due to personal stressors. -Takes her medications on and off. Did refuse labs once saying "anyways she is dying". -Psychiatry consult placed- appreciate inputs. No medications recommended at this time S/P TRANSIENT ENCEPHALOPATHY - Resolved, back to baseline Likely secondary to Hypertensive urgency secondary to missed medication (hx med non-compliance as per records) Patient says she did not take her medications secondary to nausea/vomiting -CT head- stable small focus of hemorrhage as prior scans - old and not new CHRONIC DIASTOLIC CHF -Per recent Echo EF of 50-55%. -Recently increased diuretics (last week during last admission) for better control of BP- lasix 80 mg BID. Held due to above -Monitor closely CAD S/P STENTING -Stable COPD as per records -Stable with no signs of exacerbation -Monitor HX OF CVA (Recent ICH, Hx of cerebral amyloid angiopathy as per records, Cerebellar infarct per recent CT scan last admission) This admission- stable small hemorrhage old with no new changes DM2, well controlled as of recent HgA1c recent hba1c 5.9 -Not on meds -ISS, Accuchecks DVT PROPHYLAXIS scds re: hemorrhage DISPOSITION PT/OT monitor in tele Vital Signs: Date Time Temp Pulse Resp B/P Pulse Ox O2 Delivery O2 Flow Rate FiO2 07/07/16 10:59 36.8 77 18 117/73 91 4.0 07/07/16 08:00 Nasal Cannula 07/07/16 07:49 36.5 95 18 125/84 90 4.0 07/07/16 04:00 Nasal Cannula 2.0 07/07/16 03:57 37.2 95 132/75 07/07/16 03:24 36.9 92 22 134/84 89 Nasal Cannula 2.0 07/07/16 02:08 37.0 90 131/78 07/07/16 01:45 95 139/77 07/07/16 01:30 98 142/75 07/07/16 01:15 95 138/76 07/07/16 01:00 96 164/85 07/07/16 00:45 86 128/72 07/07/16 00:30 86 119/72 07/07/16 00:15 89 144/88 07/07/16 00:01 83 131/81 07/06/16 23:45 83 133/81 07/06/16 23:29 36.4 81 18 173/100 92 Nasal Cannula 2.0 07/06/16 23:00 Nasal Cannula 2.0 07/06/16 20:09 37.1 93 20 180/122 92 Nasal Cannula 2.0 07/06/16 20:04 Nasal Cannula 2.0 07/06/16 19:27 36.4 66 18 97/64 94 Room Air 07/06/16 19:12 37.3 89 18 175/123 90 Nasal Cannula 2.0 07/06/16 18:30 37.2 106 20 184/129 94 Nasal Cannula 2.0 07/06/16 18:00 37.3 97 20 181/115 93 Nasal Cannula 2.0 07/06/16 17:45 37.3 92 20 169/82 93 Nasal Cannula 2.0 07/06/16 17:30 101 20 170/93 94 Nasal Cannula 2.0 07/06/16 17:15 89 20 173/116 92 Nasal Cannula 2.0 07/06/16 17:00 37.5 103 20 178/127 93 Nasal Cannula 2.0 07/06/16 16:45 37.5 103 20 178/127 95 Nasal Cannula 2.0 07/06/16 16:00 Nasal Cannula 2.0 07/06/16 15:27 37.0 93 20 147/93 95 Nasal Cannula 2.0 07/06/16 14:24 37.0 93 20 147/93 95 Nasal Cannula 2.0 Lab Results: Results Past 24 Hours Test 07/06/16 17:13 07/06/16 19:43 07/07/16 06:40 07/07/16 10:20 Range/Units Bedside Glucose 133 149 70-90 mg/dl White Blood Count 19.88 4.8-10.8 K/uL Red Blood Count 4.37 4.2-5.4 M/uL Hemoglobin 13.8 12.0-16.0 g/dL Hematocrit 38.3 37-47 % Mean Corpuscular Volume 87.6 80-100 fL Mean Corpuscular Hemoglobin 31.6 25-34 pg Mean Corpuscular Hemoglobin Concent 36.0 32-36 g/dl RDW Standard Deviation 45.2 36.4-46.3 fL RDW Coefficient of Variation 13.9 11.5-14.5 % Platelet Count 137 130-400 K/uL Mean Platelet Volume 12.3 7.4-10.4 fL Sodium Level 133 136-145 mmol/L Potassium Level 4.2 3.5-5.1 mmol/L Chloride Level 95 98-107 mmol/L Carbon Dioxide Level 25 21-32 mmol/L Anion Gap 13.0 3-11 mmol/L Blood Urea Nitrogen 84 7-18 mg/dl Creatinine 5.70 0.60-1.20 mg/dl Est Creatinine Clear Calc Drug Dose 10.0 ml/min Estimated GFR () 7.9 Estimated GFR (Non- 6.9 BUN/Creatinine Ratio 14.8 10-20 Random Glucose 141 70-99 mg/dl Calcium Level 8.5 8.5-10.1 mg/dl Hepatitis B Surface Antigen NEG NEG Hepatitis B Surface Antibody NEG Test 07/07/16 11:05 Range/Units Bedside Glucose 162 70-90 mg/dl
[2016-07-07] MEDS: METOPROLOL SUCC 50MG EXT REL TAB PO SCH (20:12)
[2016-07-08] VITALS (21 sets, daily range): BP systolic 113–181; BP diastolic 50–129; PULSE 60–137; TEMP 36.8–37.9; O2SAT 87–94
[2016-07-08] MEDS: ACETAMINOPHEN 325 MG TAB PO PRN (01:09)
[2016-07-08] MEDS: SODIUM CHLORIDE 0.9% 1000ML 1,000 ML IV SCH (05:42)
--- NOTE | 2016-07-08 06:41 | Nephrology Progress Note ---
Nephrology Progress Note Date of Service: Jul 08, 2016. Subjective 70 yo female with hypertensive urgency and milly on ckd stage 4 with atn which has required dialysis for the past two days. this morning, pt appears confused. able to answer questions correctly but somewhat confused. no specific complaints. Objective Date Time Temp Pulse Resp B/P Pulse Ox O2 Delivery O2 Flow Rate FiO2 07/08/16 04:05 37.0 111 24 154/82 91 Nasal Cannula 5.0 07/08/16 04:00 Nasal Cannula 5.0 07/08/16 00:23 37.6 97 22 150/86 92 Nasal Cannula 5.0 07/07/16 23:59 Nasal Cannula 5.0 07/07/16 21:30 101 24 131/78 93 Nasal Cannula 5.0 07/07/16 20:00 Nasal Cannula 5.0 07/07/16 19:16 37.4 98 24 146/84 93 Nasal Cannula 4.0 07/07/16 16:00 Nasal Cannula 4.0 07/07/16 15:49 36.9 83 24 146/78 98 Nasal Cannula 4.0 07/07/16 14:46 36.9 97 21 141/84 93 Nasal Cannula 4.0 07/07/16 14:45 Nasal Cannula 4.0 07/07/16 10:59 36.8 77 18 117/73 91 4.0 07/07/16 08:00 Nasal Cannula 07/07/16 07:49 36.5 95 18 125/84 90 4.0 Physical Exam: General-aaox3, mildly confused Eyes-no scleral icterus ENT-mmm Neck-supple Lungs-slight end expiratory wheeze Heart-irregular, tachy Abdomen-bs+ s/nt/nd, +ventral hernia Extremities-no edema Neuro-nonfocal with mild confusion Current Inpatient Medications Medications (Trade) Dose Ordered Sig/Nydia Route Start Time Stop Time Status Last Admin Dose Admin Nifedipine (Procardia Xl Tab) 90 mg QAM PO 07/05/16 09:00 08/04/16 08:59 07/07/16 08:27 90 MG Acetaminophen (Tylenol Tab) 650 mg Q4H PRN PO 07/04/16 02:15 08/03/16 02:14 07/08/16 01:09 650 MG Nitroglycerin (Nitrostat Tab) 0.4 mg UD PRN SL 07/04/16 02:15 08/03/16 02:14 Allopurinol (Zyloprim Tab) 450 mg DAILY PO 07/04/16 09:00 08/03/16 08:59 07/07/16 08:28 450 MG Famotidine (Pepcid Tab) 20 mg DAILY PO 07/04/16 09:00 08/03/16 08:59 07/07/16 08:29 20 MG Levetiracetam (Keppra Tab) 500 mg BID PO 07/04/16 09:00 08/03/16 08:59 07/07/16 20:12 500 MG Metoprolol Succinate (Toprol Xl Tab) 125 mg HS PO 07/04/16 21:00 08/03/16 20:59 07/07/16 20:12 125 MG Tiotropium [place] (Spiriva Handihaler Inhaler) 1 puff DAILY INH 07/04/16 09:00 08/03/16 08:59 07/07/16 08:32 1 PUFF Polyethylene (Miralax Powder Packet) 17 gm DAILY PRN PO 07/04/16 02:15 08/03/16 02:14 Clonidine HCl (Catapres Tab) 0.3 mg BID PO 07/04/16 09:00 08/03/16 08:59 07/07/16 20:12 0.3 MG Insulin Aspart (novoLOG ASPART) SLIDING SCALE If C... ACHS SC 07/04/16 07:00 08/03/16 06:59 07/07/16 17:08 1 UNITS Glucose (Glucose 40% Gel) 15-30 GRAMS 15 GRAMS... UD PRN PO 07/04/16 04:45 08/03/16 04:44 Glucose (Glucose Chew Tab) 4-8 Tablets 4 Tabl... UD PRN PO 07/04/16 04:45 08/03/16 04:44 Dextrose (Dextrose 50% 50ML Syringe) 25-50ML OF 50% DW IV FOR... UD PRN IV 07/04/16 04:45 08/03/16 04:44 Glucagon (Glucagon Inj) 1 mg UD PRN SQ 07/04/16 04:45 08/03/16 04:44 Tramadol HCl (Ultram Tab) FOR PAIN 25-50 MG 25 MG ... Q8H PRN PO 07/04/16 05:00 08/03/16 04:59 07/04/16 08:22 50 MG Metronidazole (Flagyl Tab) 500 mg TID PO 07/04/16 14:00 07/14/16 13:59 07/07/16 20:11 500 MG Miscellaneous Information (Pending Order) 1 ea DAILY@10 N/A 07/04/16 10:00 08/03/16 09:59 Hydralazine HCl (HydrALAZINE INJ) 10 mg Q6 PRN IV. 07/04/16 12:15 08/03/16 12:14 Bisacodyl (Dulcolax Tab) 5 mg BID PRN PO 07/05/16 11:30 08/04/16 11:29 Docusate Sodium (coLACE CAP) 100 mg BID PRN PO 07/05/16 21:00 08/04/16 20:59 07/07/16 08:27 100 MG Ciprofloxacin 250 mg 250 mg BID PO 07/06/16 21:00 07/09/16 20:59 07/07/16 20:11 250 MG Sodium Chloride (Nss 1000ml) 1,000 ml @ 50 mls/hr Q20H IV 07/07/16 09:15 08/06/16 09:14 07/08/16 05:42 50 MLS/HR Last 24 Hours Test 07/07/16 06:40 07/07/16 10:20 07/07/16 11:05 07/07/16 16:26 White Blood Count 19.88 K/uL Red Blood Count 4.37 M/uL Hemoglobin 13.8 g/dL Hematocrit 38.3 % Mean Corpuscular Volume 87.6 fL Mean Corpuscular Hemoglobin 31.6 pg Mean Corpuscular Hemoglobin Concent 36.0 g/dl RDW Standard Deviation 45.2 fL RDW Coefficient of Variation 13.9 % Platelet Count 137 K/uL Mean Platelet Volume 12.3 fL Sodium Level 133 mmol/L Potassium Level 4.2 mmol/L Chloride Level 95 mmol/L Carbon Dioxide Level 25 mmol/L Anion Gap 13.0 mmol/L Blood Urea Nitrogen 84 mg/dl Creatinine 5.70 mg/dl Est Creatinine Clear Calc Drug Dose 10.0 ml/min Estimated GFR () 7.9 Estimated GFR (Non- 6.9 BUN/Creatinine Ratio 14.8 Random Glucose 141 mg/dl Calcium Level 8.5 mg/dl Hepatitis B Surface Antigen NEG Hepatitis B Surface Antibody NEG Bedside Glucose 162 mg/dl 206 mg/dl Test 07/07/16 20:14 07/08/16 04:44 07/08/16 06:00 Bedside Glucose 135 mg/dl Date/Time Source Procedure Growth Status 07/08/16 00:01 Stool C.difficile Toxin B Gene (PCR) - Final No C. difficile toxin B gene detected Complete Assessment & Plan MILLY/ATN-has had two dialysis treatments. has some mild confusion. possibly could be from the dialysis. tentatively planned for dialysis again today however would like to reevaluate the patient this morning again and hold dialysis if confused.
[2016-07-08 07:00] LABS: BASO % 0.1 %; BASO ABS # 0.01 K/uL (0-0.2); COMPLETE YES; EOS % 0.1 %; HEMATOCRIT 37.3 % (37-47); IG% 0.4 %; LYMPH % 6.7 %; LYMPH ABS # 1.13 K/uL (1.2-3.4); MEAN CELL VOLUME 88.6 fL (80-100); MEAN CORPUSCULAR HEMOGLOBIN 31.8 pg (25-34); MEAN CORPUSCULAR HGB CONC 35.9 g/dl (32-36); MEAN PLATELET VOLUME 11.2 fL (7.4-10.4); MONO % 9.3 %; NEUT % 83.4 %; PLATELET COUNT 156 K/uL (130-400); RED BLOOD COUNT 4.21 M/uL (4.2-5.4); WHITE BLOOD COUNT 16.95 K/uL (4.8-10.8)
[2016-07-08] MEDS: INSULIN ASPART 100 UNITS/ML 3 ML PEN SC SCH ×4 (07:00→21:00)
[2016-07-08] MEDS ORDERED: NURSING VERBAL MED ORDER ONE (07:15)
[2016-07-08 07:44] LABS: BUN/CREATININE RATIO 13.4 (10-20); CALCIUM 8.6 mg/dl (8.5-10.1); CREATININE 4.8 mg/dl (0.60-1.20); POTASSIUM 3.8 mmol/L (3.5-5.1)
[2016-07-08] MEDS: NIFEdipine 30 MG CR TAB PO SCH (08:10)
[2016-07-08] MEDS: CLONIDINE HCL 0.1 MG TAB PO SCH ×2 (08:10→21:00)
[2016-07-08] MEDS: ALLOPURINOL 300 MG TAB PO SCH (08:10)
[2016-07-08] MEDS: TIOTROPIUM BROMIDE 5 PUFF/90 MCG INH INH SCH (08:11)
[2016-07-08] MEDS: CIPROFLOXACIN 250 MG TAB PO SCH ×2 (08:11→21:00)
[2016-07-08] MEDS: FAMOTIDINE 20 MG TAB PO SCH (08:11)
[2016-07-08] MEDS: LEVETIRACETAM 500 MG TAB PO SCH ×2 (08:11→21:00)
--- NOTE | 2016-07-08 12:24 | Progress Note ---
Internal Med Progress Note Date of Service: Jul 08, 2016. Provider Documentation: SUBJECTIVE: Patient has been more confused, disoriented since dialysis yesterday Today in AM was more confused, agitated. On my evaluation, lethargic, drowsy, difficult to arouse. Per RN, did not sleep well at night. On 5 L oxygen (which is a change) OBJECTIVE : Vital Signs-as noted below Exam: General-Lethargic + Not much arousable ENT-normal hearing Lungs-AEBE decreased,few rales Heart-s1 and s2 heard, regular rate and rhythm no murmurs. Tunneled line + Abdomen-soft bowel sounds present non tender no distension Extremities-Trace edema- improved significantly compared to last admission Neuro-No focal deficits Lab data as noted below. ASSESSMENT & PLAN: ASSESSMENT & PLAN: AMS- Lethargic -Was confused since dialysis yesterday, but more lethargic now and difficult to arouse -Will order CT scan head, ABGs , CXR- for hypoxia- now requiring 5 L oxygen -Monitor closely. Avoid sedatives ACUTE HYPOXIC RESPIRATORY FAILURE -On 5 L Oxygen which is new -Will order CXR, ABGs as lethargic, unable to get history -Did receive dialysis x 2 MILLY ON CKD-III - Worsened -Baseline creatinine around 1.8, presented with 4.0 --> 5.60-->6.60 -Likely volume depletion secondary to nausea/vomiting in setting of chronic lasix use (recent admission-increased dose to help with diuresis/bp control)/ ATN with lowering BP -Started on dialysis on 07/06/16 - received it twice so far -Monitor closely HYPERTENSIVE URGENCY - BP Improved Secondary to not taking meds due to nausea/vomiting. Known for difficulty controlling BP for years. Recent admission 06/28/16, prolonged stay due to difficult to manage BP, plus non compliant with her home medications -Last admission changes: Increased lasix to 80 mg BID, Clonidine increased to 0.3 mg BID, Nifedipine 90 mg daily added -Continue with Clonidine 0.3 mg BID, Nifedipine 90 mg daily, Metoprolol 125 mg ( home meds), IV Hydralazine PRN. Held lasix. -Monitor S/P NAUSEA/VOMITING- Resolved Possibly acute gastroenteritis vs related to UTI/Possible pyelo with ? left perinephric stranding on ct scan ? No diarrhea per patient, constipation + no BM for few days. C diff still pending collection -Tolerating diet well -CT abd/pelvis- 1. Asymmetric renal size, likely indicating mild right renal atrophy2. Nonobstructing right renal calculus3. Nonspecific left-sided perinephric stranding4. No evidence of bowel obstruction. No evidence of free air5. 2 cm left adrenal nodule6. Complex fat-containing bilobed umbilical hernia with mild infiltration of the fat UTI-E COLI UA +VE, CT - left perinephric stranding. Pyelo ?? -S/P IV Rocephin (Day 3)- Discontinued and changed it to Ciprofloxacin BID (Day 09/04) -Urine c/S- E coli DEPRESSION, MILD - Depressed due to personal stressors. -Takes her medications on and off. Did refuse labs once saying "anyways she is dying". -Psychiatry consult placed- appreciate inputs. No medications recommended at this time CHRONIC DIASTOLIC CHF -Per recent Echo EF of 50-55%. -Recently increased diuretics (last week during last admission) for better control of BP- lasix 80 mg BID. Held due to above -Monitor closely CAD S/P STENTING -Stable COPD as per records -Stable with no signs of exacerbation -Monitor HX OF CVA (Recent ICH, Hx of cerebral amyloid angiopathy as per records, Cerebellar infarct per recent CT scan last admission) This admission- stable small hemorrhage old with no new changes DM2, well controlled as of recent HgA1c recent hba1c 5.9 -Not on meds -ISS, Accuchecks DVT PROPHYLAXIS scds re: hemorrhage DISPOSITION PT/OT monitor in tele High risk of clinical deterioration Monitor closely Will call daughter to update about status Vital Signs: Date Time Temp Pulse Resp B/P Pulse Ox O2 Delivery O2 Flow Rate FiO2 07/08/16 12:00 Nasal Cannula 5.0 07/08/16 08:18 37.9 101 18 131/72 90 07/08/16 08:00 Nasal Cannula 5.0 07/08/16 04:05 37.0 111 24 154/82 91 Nasal Cannula 5.0 07/08/16 04:00 Nasal Cannula 5.0 07/08/16 00:23 37.6 97 22 150/86 92 Nasal Cannula 5.0 07/07/16 23:59 Nasal Cannula 5.0 07/07/16 21:30 101 24 131/78 93 Nasal Cannula 5.0 07/07/16 20:00 Nasal Cannula 5.0 07/07/16 19:16 37.4 98 24 146/84 93 Nasal Cannula 4.0 07/07/16 16:00 Nasal Cannula 4.0 07/07/16 15:49 36.9 83 24 146/78 98 Nasal Cannula 4.0 07/07/16 14:46 36.9 97 21 141/84 93 Nasal Cannula 4.0 07/07/16 14:45 Nasal Cannula 4.0 Lab Results: Results Past 24 Hours Test 07/07/16 16:26 07/07/16 20:14 07/08/16 06:35 07/08/16 11:38 Range/Units Bedside Glucose 206 135 142 147 70-90 mg/dl White Blood Count 16.95 4.8-10.8 K/uL Red Blood Count 4.21 4.2-5.4 M/uL Hemoglobin 13.4 12.0-16.0 g/dL Hematocrit 37.3 37-47 % Mean Corpuscular Volume 88.6 80-100 fL Mean Corpuscular Hemoglobin 31.8 25-34 pg Mean Corpuscular Hemoglobin Concent 35.9 32-36 g/dl Platelet Count 156 130-400 K/uL Mean Platelet Volume 11.2 7.4-10.4 fL Neutrophils (%) (Auto) 83.4 % Lymphocytes (%) (Auto) 6.7 % Monocytes (%) (Auto) 9.3 % Eosinophils (%) (Auto) 0.1 % Basophils (%) (Auto) 0.1 % Neutrophils # (Auto) 14.17 1.4-6.5 K/uL Lymphocytes # (Auto) 1.13 1.2-3.4 K/uL Monocytes # (Auto) 1.57 0.11-0.59 K/uL Eosinophils # (Auto) 0.01 0-0.5 K/uL Basophils # (Auto) 0.01 0-0.2 K/uL RDW Standard Deviation 45.7 36.4-46.3 fL RDW Coefficient of Variation 14.2 11.5-14.5 % Immature Granulocyte % (Auto) 0.4 % Immature Granulocyte # (Auto) 0.06 0.00-0.02 K/uL Sodium Level 136 136-145 mmol/L Potassium Level 3.8 3.5-5.1 mmol/L Chloride Level 99 98-107 mmol/L Carbon Dioxide Level 25 21-32 mmol/L Anion Gap 12.0 3-11 mmol/L Blood Urea Nitrogen 64 7-18 mg/dl Creatinine 4.80 0.60-1.20 mg/dl Est Creatinine Clear Calc Drug Dose 11.8 ml/min Estimated GFR () 9.8 Estimated GFR (Non- 8.4 BUN/Creatinine Ratio 13.4 10-20 Random Glucose 150 70-99 mg/dl Calcium Level 8.6 8.5-10.1 mg/dl Test 07/08/16 11:46 07/08/16 12:19 Range/Units Bedside Glucose 163 70-90 mg/dl Microbiology Results 07/08/16 C.difficile Toxin B Gene (PCR) - Final, Complete No C. difficile toxin B gene detected
--- NOTE | 2016-07-08 12:36 | DIAGNOSTIC IMAGING REPORT ---
HEAD CT NONCONTRAST CT DOSE: 691.05 mGy.cm HISTORY: Mental status change Change in mental status. Hx of stroke with hemorrhage in past TECHNIQUE: Multiaxial CT images of the head were performed without the use of intravenous contrast. Comparison: 07/03/2016 Findings: Stable small focus of hemorrhage medial to the right occipital lobe. No new or interval process. Considerable chronic small vessel change. Pre-existing atrophy. Impression: 1. No change from the prior date. 2. Small hemorrhagic focus medial right occipital lobe. 3. Considerable atrophy and chronic small vessel change also stable Electronically signed by: Wes Martinez M.D. 07/08/2016 12:34 PM Dictated Date/Time: 07/08/2016 12:23 PM
--- NOTE | 2016-07-08 12:57 | DIAGNOSTIC IMAGING REPORT ---
CHEST ONE VIEW PORTABLE CLINICAL HISTORY: Hypoxia dyspnea COMPARISON STUDY: 07/03/2016 FINDINGS: PermCath within this. Vena cava. Cardiac enlargement. Increased prominence of pulmonary vasculature. IMPRESSION: Congestive heart failure. PermCath in superior vena cava. Electronically signed by: Wes Martinez M.D. 07/08/2016 12:56 PM Dictated Date/Time: 07/08/2016 12:55 PM
[2016-07-08] MEDS ORDERED: FUROSEMIDE INJ 80 MG in SYRINGE 0 ML IV ONE (13:30)
[2016-07-08] MEDS ORDERED: ALBUT/IPRATROP 3MG/0.5MG NEB 3 ML VIAL INH PRN (13:30)
[2016-07-08 13:51] LABS: ISTAT ALLEN TEST Pass; ISTAT ARTERIAL BLOOD GAS HCO3 23 meq/L (19-24); ISTAT ARTERIAL BLOOD GAS PCO2 25 mmHg (35-46); ISTAT ARTERIAL BLOOD GAS PO2 169 mmHg (80-95); ISTAT ARTERIAL BLOOD GAS pH 7.57 (7.35-7.45); ISTAT CARBON DIOXIDE 24 mEq/l (24-31); ISTAT DELIVERY SYSTEM Cannula; ISTAT SITE R Radial
[2016-07-08] MEDS: ALBUT/IPRATROP 3MG/0.5MG NEB 3 ML VIAL INH SCH ×2 (15:18→19:27)
[2016-07-08] MEDS: METOPROLOL SUCC 50MG EXT REL TAB PO SCH (21:00)
[2016-07-08] MEDS: METOPROLOL TARTRATE 1 MG/ML VIAL IV PRN (22:47)
[2016-07-09] VITALS (13 sets, daily range): BP systolic 150–174; BP diastolic 80–86; PULSE 97–142; TEMP 36.7–37.7; O2SAT 92–100
[2016-07-09] MEDS: ALBUT/IPRATROP 3MG/0.5MG NEB 3 ML VIAL INH SCH ×5 (01:54→20:04)
[2016-07-09] MEDS: METOPROLOL TARTRATE 1 MG/ML VIAL IV PRN (06:04)
[2016-07-09 06:30] LABS: HEMATOCRIT 38.6 % (37-47); MEAN CELL VOLUME 87.5 fL (80-100); MEAN CORPUSCULAR HEMOGLOBIN 30.8 pg (25-34); MEAN CORPUSCULAR HGB CONC 35.2 g/dl (32-36); MEAN PLATELET VOLUME 11.3 fL (7.4-10.4); PLATELET COUNT 184 K/uL (130-400); RED BLOOD COUNT 4.41 M/uL (4.2-5.4); WHITE BLOOD COUNT 15.52 K/uL (4.8-10.8)
[2016-07-09] MEDS: INSULIN ASPART 100 UNITS/ML 3 ML PEN SC SCH ×4 (07:00→20:49)
[2016-07-09 07:06] LABS: BUN/CREATININE RATIO 11.7 (10-20); CALCIUM 8.8 mg/dl (8.5-10.1); CREATININE 4.5 mg/dl (0.60-1.20); POTASSIUM 3.6 mmol/L (3.5-5.1)
[2016-07-09] MEDS: ALLOPURINOL 300 MG TAB PO SCH (09:00)
[2016-07-09] MEDS: NIFEdipine 30 MG CR TAB PO SCH (09:00)
[2016-07-09] MEDS: TIOTROPIUM BROMIDE 5 PUFF/90 MCG INH INH SCH (09:00)
[2016-07-09] MEDS: FAMOTIDINE 20 MG TAB PO SCH (09:00)
[2016-07-09] MEDS: LEVETIRACETAM 500 MG TAB PO SCH ×2 (09:00→20:47)
[2016-07-09] MEDS: CLONIDINE HCL 0.1 MG TAB PO SCH ×2 (09:00→20:45)
[2016-07-09] MEDS: CIPROFLOXACIN 250 MG TAB PO SCH (09:00)
--- NOTE | 2016-07-09 09:04 | Nephrology Progress Note ---
Nephrology Progress Note Date of Service: Jul 09, 2016. Subjective 70 yo female with hypertensive urgency and milly on ckd stage 4 with atn which has required dialysis and pt has become more confused during this hospitilization. when speaking to dialysis nurses, pt was very confused even on the first treatment. appears to have worsened though since she has been here. requiring a one to one. required dialysis yesterday for volume overload. urinating about 500cc a day. Objective Date Time Temp Pulse Resp B/P Pulse Ox O2 Delivery O2 Flow Rate FiO2 07/09/16 06:04 134 144/75 07/09/16 04:00 Nasal Cannula 4.0 07/09/16 03:48 21 150/80 Nasal Cannula 4.0 07/09/16 02:00 93 Nasal Cannula 4.0 07/09/16 01:55 118 24 95 Nasal Cannula 4.0 07/09/16 00:00 37.1 122 22 93 Nasal Cannula 4.0 07/09/16 00:00 Nasal Cannula 4.0 07/08/16 22:47 124 148/97 07/08/16 20:00 Nasal Cannula 4.0 07/08/16 19:37 36.9 137 24 146/101 93 Nasal Cannula 3.0 07/08/16 17:55 36.8 130/100 07/08/16 17:30 60 131/81 07/08/16 17:15 73 161/74 07/08/16 17:00 66 152/50 07/08/16 16:45 130 07/08/16 16:30 130 181/108 07/08/16 16:15 123 164/129 07/08/16 16:00 91 113/82 07/08/16 16:00 Nasal Cannula 4.0 07/08/16 15:47 130 181/108 07/08/16 15:30 91 113/82 07/08/16 15:15 105 170/108 07/08/16 15:15 126 24 94 Nasal Cannula 4.0 07/08/16 15:08 134 157/113 07/08/16 14:55 37.9 130 163/103 07/08/16 14:51 130 163/103 07/08/16 14:45 105 170/108 07/08/16 14:30 105 170/108 07/08/16 12:19 37.0 125 18 181/88 87 Nasal Cannula 5.0 07/08/16 12:00 Nasal Cannula 5.0 Physical Exam: General-delirious Eyes-no scleral icterus ENT-mmm Neck-supple Lungs-cta Heart-irregular, tachy Abdomen-bs+ s/nt/nd, +ventral hernia Extremities-no edema Neuro-+delirium Current Inpatient Medications Medications (Trade) Dose Ordered Sig/Nydia Route Start Time Stop Time Status Last Admin Dose Admin Nifedipine (Procardia Xl Tab) 90 mg QAM PO 07/05/16 09:00 08/04/16 08:59 07/08/16 08:10 90 MG Acetaminophen (Tylenol Tab) 650 mg Q4H PRN PO 07/04/16 02:15 08/03/16 02:14 07/08/16 01:09 650 MG Nitroglycerin (Nitrostat Tab) 0.4 mg UD PRN SL 07/04/16 02:15 08/03/16 02:14 Allopurinol (Zyloprim Tab) 450 mg DAILY PO 07/04/16 09:00 08/03/16 08:59 07/08/16 08:10 450 MG Famotidine (Pepcid Tab) 20 mg DAILY PO 07/04/16 09:00 08/03/16 08:59 07/08/16 08:11 20 MG Levetiracetam (Keppra Tab) 500 mg BID PO 07/04/16 09:00 08/03/16 08:59 07/08/16 08:11 500 MG Metoprolol Succinate (Toprol Xl Tab) 125 mg HS PO 07/04/16 21:00 08/03/16 20:59 07/07/16 20:12 125 MG Tiotropium [place] (Spiriva Handihaler Inhaler) 1 puff DAILY INH 07/04/16 09:00 08/03/16 08:59 07/08/16 08:11 1 PUFF Polyethylene (Miralax Powder Packet) 17 gm DAILY PRN PO 07/04/16 02:15 08/03/16 02:14 Clonidine HCl (Catapres Tab) 0.3 mg BID PO 07/04/16 09:00 08/03/16 08:59 07/08/16 08:10 0.3 MG Insulin Aspart (novoLOG ASPART) SLIDING SCALE If C... ACHS SC 07/04/16 07:00 08/03/16 06:59 07/07/16 17:08 1 UNITS Glucose (Glucose 40% Gel) 15-30 GRAMS 15 GRAMS... UD PRN PO 07/04/16 04:45 08/03/16 04:44 Glucose (Glucose Chew Tab) 4-8 Tablets 4 Tabl... UD PRN PO 07/04/16 04:45 08/03/16 04:44 Dextrose (Dextrose 50% 50ML Syringe) 25-50ML OF 50% DW IV FOR... UD PRN IV 07/04/16 04:45 08/03/16 04:44 Glucagon (Glucagon Inj) 1 mg UD PRN SQ 07/04/16 04:45 08/03/16 04:44 Tramadol HCl (Ultram Tab) FOR PAIN 25-50 MG 25 MG ... Q8H PRN PO 07/04/16 05:00 08/03/16 04:59 07/04/16 08:22 50 MG Hydralazine HCl (HydrALAZINE INJ) 10 mg Q6 PRN IV. 07/04/16 12:15 08/03/16 12:14 Bisacodyl (Dulcolax Tab) 5 mg BID PRN PO 07/05/16 11:30 08/04/16 11:29 Docusate Sodium (coLACE CAP) 100 mg BID PRN PO 07/05/16 21:00 08/04/16 20:59 07/07/16 08:27 100 MG Ciprofloxacin (Ciprofloxacin Tab) 250 mg BID PO 07/06/16 21:00 07/09/16 20:59 07/08/16 08:11 250 MG Albuterol/ Ipratropium (Duoneb) 3 ml QIDR INH 07/08/16 16:00 08/07/16 15:59 07/09/16 01:54 3 ML Albuterol/ Ipratropium (Duoneb) 3 ml Q2H PRN INH 07/08/16 13:30 08/07/16 13:29 Metoprolol Tartrate (Lopressor Iv) 5 mg Q6H PRN IV 07/08/16 16:45 08/07/16 16:44 07/09/16 06:04 5 MG Last 24 Hours Test 07/08/16 11:38 07/08/16 11:46 07/08/16 13:31 07/08/16 17:35 Bedside Glucose 147 mg/dl 163 mg/dl 112 mg/dl Blood Gas Sample Site R Radial Bedside Blood Gas pH (LAB) 7.57 Bedside Blood Gas pCO2 (LAB) 25 mmHg Bedside Blood Gas pO2 (LAB) 169 mmHg Bedside Blood Gas HCO3 (LAB) 23 meq/L Bedside Blood Gas Total CO2 24 mEq/l Bedside Blood Gas Base Excess (LAB) 1.0 meq/L Bedside Blood Gas O2 Saturation 100.0 % Ethan Test Pass Oxygen Delivery Device Cannula Test 07/08/16 21:56 07/09/16 06:10 07/09/16 06:48 Bedside Glucose 157 mg/dl 158 mg/dl White Blood Count 15.52 K/uL Red Blood Count 4.41 M/uL Hemoglobin 13.6 g/dL Hematocrit 38.6 % Mean Corpuscular Volume 87.5 fL Mean Corpuscular Hemoglobin 30.8 pg Mean Corpuscular Hemoglobin Concent 35.2 g/dl RDW Standard Deviation 45.3 fL RDW Coefficient of Variation 14.1 % Platelet Count 184 K/uL Mean Platelet Volume 11.3 fL Sodium Level 137 mmol/L Potassium Level 3.6 mmol/L Chloride Level 99 mmol/L Carbon Dioxide Level 23 mmol/L Anion Gap 15.0 mmol/L Blood Urea Nitrogen 53 mg/dl Creatinine 4.50 mg/dl Est Creatinine Clear Calc Drug Dose 12.2 ml/min Estimated GFR () 10.6 Estimated GFR (Non- 9.1 BUN/Creatinine Ratio 11.7 Random Glucose 161 mg/dl Calcium Level 8.8 mg/dl Assessment & Plan MLILY/ATN-has had three successive dialysis treatments and volume status and electrolytes are stable. no dialysis over the weekend unless volume status worsens. urinating about 500cc. hoping kidney function eventually improves. Delirium-multifactorial. unclear if she has experienced dysequilibrium syndrome through initiation of dialysis. bun and creatinine were not high and dialyzed for two hours the first day and three hours the next two days which should not exacerbate dysequilibrium. feel delirium may be multifactorial. appreciate hospitalist help in the appropriate workup.
--- NOTE | 2016-07-09 10:43 | Progress Note ---
Internal Med Progress Note Date of Service: Jul 09, 2016. Provider Documentation: SUBJECTIVE: Patient is delirious - disoriented x 3, yelling. Continues to be this way. Refusing all her medications. 1:1 Observation + Per RN, did not sleep well at night. On 4 L oxygen OBJECTIVE : Vital Signs-as noted below Exam: General-Lethargic but on and off agitated, delirious ENT-normal hearing Lungs-AEBE decreased,few rales Heart-s1 and s2 heard, regular rate and rhythm no murmurs. Tunneled line + Abdomen-soft , distended with umbilical hernia, BS + Extremities-Trace edema- improved significantly compared to last admission Lab data as noted below. ASSESSMENT & PLAN: ASSESSMENT & PLAN: DELIRIUM : -Was confused since dialysis--> progressively worsening. Dysequilibrium syndrome ? -CT head repeat- No change, stable hemorrhage, ABGs-reviewed- respiratory alkalosis, CXR- congestion + -Monitor closely. Avoid sedatives/haldol as on and off lethargic ACUTE HYPOXIC RESPIRATORY FAILURE -On 4 L Oxygen which is a changed -CXR- congestion , ABG- resp alkalosis -S/P Dialysis on 07/08/16 with fluid removal MILLY ON CKD-III - Worsened -Baseline creatinine around 1.8, presented with 4.0 --> 5.60-->6.60 and thus started on dialysis -Likely volume depletion secondary to nausea/vomiting in setting of chronic lasix use (recent admission-increased dose to help with diuresis/bp control)/ ATN with lowering BP -Started on dialysis on 07/06/16 - 3 sessions so far, on 07/08/16 with fluid removal -Monitor closely SINUS TACHYCARDIA Likely secondary to not taking her PO medications -IV Lopressor 5 mg q 6 hours scheduled started -Monitor HYPERTENSIVE URGENCY - Resolved Secondary to not taking meds due to nausea/vomiting. Known for difficulty controlling BP for years. Recent admission 06/28/16, prolonged stay due to difficult to manage BP, plus non compliant with her home medications -Last admission changes: Increased lasix to 80 mg BID, Clonidine increased to 0.3 mg BID, Nifedipine 90 mg daily added -Continue with Clonidine 0.3 mg BID, Nifedipine 90 mg daily, Metoprolol 125 mg ( home meds), IV Hydralazine PRN. Held lasix. -Monitor UTI-E COLI UA +VE, CT - left perinephric stranding. -S/P IV Rocephin (Day 3)- Discontinued and changed it to Ciprofloxacin BID (Day 6/7) -Urine c/S- E coli S/P NAUSEA/VOMITING - Resolved Possibly acute gastroenteritis vs related to UTI/Possible pyelo with ? left perinephric stranding on ct scan ? No diarrhea per patient, constipation + no BM for few days. C diff still pending collection -Tolerating diet well -CT abd/pelvis- 1. Asymmetric renal size, likely indicating mild right renal atrophy2. Nonobstructing right renal calculus3. Nonspecific left-sided perinephric stranding4. No evidence of bowel obstruction. No evidence of free air5. 2 cm left adrenal nodule6. Complex fat-containing bilobed umbilical hernia with mild infiltration of the fat CHRONIC DIASTOLIC CHF- -Per recent Echo EF of 50-55%. -Recently increased diuretics (last week during last admission) for better control of BP- lasix 80 mg BID. Held due to above -Now on dialysis -Monitor closely DEPRESSION, MILD - Depressed due to personal stressors. -Psychiatry consult placed- appreciate inputs. No medications recommended at this time CAD S/P STENTING -Stable COPD as per records -Stable with no signs of exacerbation -Monitor HX OF CVA (Recent ICH, Hx of cerebral amyloid angiopathy as per records, Cerebellar infarct per recent CT scan last admission) This admission- stable small hemorrhage old with no new changes DM2, well controlled as of recent HgA1c recent hba1c 5.9 -Not on meds -ISS, Accuchecks DVT PROPHYLAXIS scds re: hemorrhage DISPOSITION PT/OT- not participating monitor in tele High risk of clinical deterioration Discussed with nephrology, daughter - updated Vital Signs: Date Time Temp Pulse Resp B/P Pulse Ox O2 Delivery O2 Flow Rate FiO2 07/09/16 09:32 37.7 120 20 174/84 92 4.0 07/09/16 08:00 Nasal Cannula 4.0 07/09/16 06:04 134 144/75 07/09/16 04:00 Nasal Cannula 4.0 07/09/16 03:48 21 150/80 Nasal Cannula 4.0 07/09/16 02:00 93 Nasal Cannula 4.0 07/09/16 01:55 118 24 95 Nasal Cannula 4.0 07/09/16 00:00 37.1 122 22 93 Nasal Cannula 4.0 07/09/16 00:00 Nasal Cannula 4.0 07/08/16 22:47 124 148/97 07/08/16 20:00 Nasal Cannula 4.0 07/08/16 19:37 36.9 137 24 146/101 93 Nasal Cannula 3.0 07/08/16 17:55 36.8 130/100 07/08/16 17:30 60 131/81 07/08/16 17:15 73 161/74 07/08/16 17:00 66 152/50 07/08/16 16:45 130 07/08/16 16:30 130 181/108 07/08/16 16:15 123 164/129 07/08/16 16:00 91 113/82 07/08/16 16:00 Nasal Cannula 4.0 07/08/16 15:47 130 181/108 07/08/16 15:30 91 113/82 07/08/16 15:15 105 170/108 07/08/16 15:15 126 24 94 Nasal Cannula 4.0 07/08/16 15:08 134 157/113 07/08/16 14:55 37.9 130 163/103 07/08/16 14:51 130 163/103 07/08/16 14:45 105 170/108 07/08/16 14:30 105 170/108 07/08/16 12:19 37.0 125 18 181/88 87 Nasal Cannula 5.0 07/08/16 12:00 Nasal Cannula 5.0 Lab Results: Results Past 24 Hours Test 07/08/16 11:38 07/08/16 11:46 07/08/16 13:31 07/08/16 17:35 Range/Units Bedside Glucose 147 163 112 70-90 mg/dl Blood Gas Sample Site R Radial Bedside Blood Gas pH (LAB) 7.57 7.35-7.45 Bedside Blood Gas pCO2 (LAB) 25 35-46 mmHg Bedside Blood Gas pO2 (LAB) 169 80-95 mmHg Bedside Blood Gas HCO3 (LAB) 23 19-24 meq/L Bedside Blood Gas Total CO2 24 24-31 mEq/l Bedside Blood Gas Base Excess (LAB) 1.0 -9-1.8 meq/L Bedside Blood Gas O2 Saturation 100.0 90-95 % Ethan Test Pass Oxygen Delivery Device Cannula Test 07/08/16 21:56 3/11/17 06:10 07/09/16 06:48 Range/Units Bedside Glucose 157 158 70-90 mg/dl White Blood Count 15.52 4.8-10.8 K/uL Red Blood Count 4.41 4.2-5.4 M/uL Hemoglobin 13.6 12.0-16.0 g/dL Hematocrit 38.6 37-47 % Mean Corpuscular Volume 87.5 80-100 fL Mean Corpuscular Hemoglobin 30.8 25-34 pg Mean Corpuscular Hemoglobin Concent 35.2 32-36 g/dl RDW Standard Deviation 45.3 36.4-46.3 fL RDW Coefficient of Variation 14.1 11.5-14.5 % Platelet Count 184 130-400 K/uL Mean Platelet Volume 11.3 7.4-10.4 fL Sodium Level 137 136-145 mmol/L Potassium Level 3.6 3.5-5.1 mmol/L Chloride Level 99 98-107 mmol/L Carbon Dioxide Level 23 21-32 mmol/L Anion Gap 15.0 3-11 mmol/L Blood Urea Nitrogen 53 7-18 mg/dl Creatinine 4.50 0.60-1.20 mg/dl Est Creatinine Clear Calc Drug Dose 12.2 ml/min Estimated GFR () 10.6 Estimated GFR (Non- 9.1 BUN/Creatinine Ratio 11.7 10-20 Random Glucose 161 70-99 mg/dl Calcium Level 8.8 8.5-10.1 mg/dl
--- NOTE | 2016-07-09 11:28 | Psychiatric Progress Notes ---
Psychiatric Progress Note Date of Service Jul 09, 2016. Notes ID: Patient reviewed with liaison nurse. Initial consult by Dr. Castro for suspected depression with ?compliance with dialysis recs. Since then patient has received treatment and is now experiencing delirium. CC: "My parents were murdered" HPI: per chart notes - disoriented, yelling. Continues to be this way. Refusing all her medications. 1:1 Observation + Per RN, did not sleep well at night. Patient describes significant anxiety and is very focussed on not being able to wear her usual clothes. She then changes to [place]. ROS: patient is unable to complete MSE: tearful, anxious, labile, not combative at this time but clearly confused, did not appear to be responding to internal stimuli. Imp: delirium Plan: Verbal redirection and reassurance. Orientation cues with each interaction. Falls precautions. 1-on-1 Lights on in day, windows open; opposite at night. Avoid opiate analgesics where possible. note that we generally rec avoid benzos as can have paradoxical effects but given recent refusal of PO meds, anxiety on exam would make sense to give 0.5 MG Q4 HOURS IV. this dose should be held if excessive sedation, I suspect breathing is so labored given anxiety but certainly need to monitor as patient is quite medically fragile. Would avoid IM Haldol unless combative. Seroquel 25 may be effecitve prn for sleep.
[2016-07-09] MEDS: METOPROLOL TARTRATE 1 MG/ML VIAL IV. SCH ×2 (12:02→18:21)
[2016-07-09] MEDS: METOPROLOL SUCC 50MG EXT REL TAB PO SCH (20:46)
[2016-07-10] VITALS (10 sets, daily range): BP systolic 145–165; BP diastolic 77–104; PULSE 94–134; TEMP 36.6–37; O2SAT 84–96
[2016-07-10] MEDS: METOPROLOL TARTRATE 1 MG/ML VIAL IV. SCH ×4 (00:23→18:09)
[2016-07-10 06:18] LABS: HEMATOCRIT 39.2 % (37-47); MEAN CELL VOLUME 88.7 fL (80-100); MEAN CORPUSCULAR HEMOGLOBIN 31.2 pg (25-34); MEAN CORPUSCULAR HGB CONC 35.2 g/dl (32-36); PLATELET COUNT 192 K/uL (130-400); RED BLOOD COUNT 4.42 M/uL (4.2-5.4); WHITE BLOOD COUNT 16.66 K/uL (4.8-10.8)
[2016-07-10 06:55] LABS: BUN/CREATININE RATIO 13.9 (10-20); CALCIUM 8.6 mg/dl (8.5-10.1)
[2016-07-10] MEDS: ALBUT/IPRATROP 3MG/0.5MG NEB 3 ML VIAL INH SCH ×4 (07:49→19:35)
[2016-07-10] MEDS: INSULIN ASPART 100 UNITS/ML 3 ML PEN SC SCH ×4 (08:22→21:00)
[2016-07-10] MEDS: TIOTROPIUM BROMIDE 5 PUFF/90 MCG INH INH SCH (08:22)
[2016-07-10] MEDS: CLONIDINE HCL 0.1 MG TAB PO SCH ×2 (08:22→21:22)
[2016-07-10] MEDS: FAMOTIDINE 20 MG TAB PO SCH (08:23)
[2016-07-10] MEDS: ALLOPURINOL 300 MG TAB PO SCH (08:23)
[2016-07-10] MEDS: LEVETIRACETAM 500 MG TAB PO SCH (08:23)
[2016-07-10] MEDS: NIFEdipine 30 MG CR TAB PO SCH (09:00)
[2016-07-10] MEDS ORDERED: METOPROLOL TARTRATE 1 MG/ML VIAL IV PRN (10:00)
--- NOTE | 2016-07-10 10:03 | Progress Note ---
Internal Med Progress Note Date of Service: Jul 10, 2016. Provider Documentation: SUBJECTIVE: Patient's mental status fluctuates between delirium and lethargy. Today more lethargic. Did not eat her breakfast. Refused all her medications. Overall was calm at night per RN. Off 1:1 Observation. Had a BM yesterday On 4 L oxygen Tele- Sinus tachycardia 120s while resting OBJECTIVE : Vital Signs-as noted below Exam: General-Lethargic but on and off agitated, delirious ENT-normal hearing Lungs-AEBE decreased,few rales, few wheezes Heart-s1 and s2 heard, regular rate and rhythm no murmurs. Tunneled line + Abdomen-soft , distended with umbilical hernia, BS + Extremities-Trace edema- improved significantly compared to last admission Lab data as noted below. ASSESSMENT & PLAN: ASSESSMENT & PLAN: DELIRIUM : Marginal improvement -Was confused since dialysis--> progressively worsening. Dysequilibrium syndrome ? . Mental status fluctuates between lethargy and agitation /delirium -CT head repeat- No change, stable hemorrhage, ABGs-reviewed- respiratory alkalosis, CXR- congestion + -Monitor closely. Avoid sedatives/haldol as on and off lethargic . Off 1:1 observation ACUTE HYPOXIC RESPIRATORY FAILURE - Marginal improvement -On 4 L Oxygen - down from 5 L -Duonebs QID as wheezes + -CXR- congestion , ABG- resp alkalosis -On dialysis MILLY ON CKD-III - Worsened -Baseline creatinine around 1.8, presented with 4.0 --> 5.60-->6.60 and thus started on dialysis on 07/06/16 -Likely volume depletion secondary to nausea/vomiting in setting of chronic lasix use (recent admission-increased dose to help with diuresis/bp control)/ ATN with lowering BP -Started on dialysis on 07/06/16 - After 2 sessions, started with fluid removal on 07/08/16. -Monitor closely SINUS TACHYCARDIA Likely secondary to not taking her PO medications -IV Lopressor 5 mg q 6 hours scheduled . Will add PRN IV > 120 bpm -Monitor HYPERTENSIVE URGENCY - Resolved Secondary to not taking meds due to nausea/vomiting. Known for difficulty controlling BP for years. Recent admission 06/28/16, prolonged stay due to difficult to manage BP, plus non compliant with her home medications -Last admission changes: Increased lasix to 80 mg BID, Clonidine increased to 0.3 mg BID, Nifedipine 90 mg daily added -Continue with Clonidine 0.3 mg BID, Nifedipine 90 mg daily, Metoprolol 125 mg ( home meds), IV Hydralazine PRN. Held lasix. -Monitor UTI-E COLI UA +VE, CT - left perinephric stranding. -S/P IV Rocephin (Day 3)- Discontinued and changed it to Ciprofloxacin BID (Day 6/7)--> change to IV as not taking PO -Urine c/S- E coli S/P NAUSEA/VOMITING - Resolved Possibly acute gastroenteritis vs related to UTI/Possible pyelo with ? left perinephric stranding on ct scan ? No diarrhea per patient, constipation + no BM for few days. C diff still pending collection -Tolerating diet well -CT abd/pelvis- 1. Asymmetric renal size, likely indicating mild right renal atrophy2. Nonobstructing right renal calculus3. Nonspecific left-sided perinephric stranding4. No evidence of bowel obstruction. No evidence of free air5. 2 cm left adrenal nodule6. Complex fat-containing bilobed umbilical hernia with mild infiltration of the fat CHRONIC DIASTOLIC CHF- -Per recent Echo EF of 50-55%. -Recently increased diuretics (last week during last admission) for better control of BP- lasix 80 mg BID. Held due to above -Now on dialysis -Monitor closely DEPRESSION, MILD - Now delirious Depressed due to personal stressors. -Psychiatry consult placed- appreciate inputs. No medications recommended at this time CAD S/P STENTING -Stable COPD as per records -Stable with no signs of exacerbation -Monitor HX OF CVA (Recent ICH, Hx of cerebral amyloid angiopathy as per records, Cerebellar infarct per recent CT scan last admission) This admission- stable small hemorrhage old with no new changes DM2, well controlled as of recent HgA1c recent hba1c 5.9 -Not on meds -ISS, Accuchecks NUTRITION Not taking much due to AMS x 2 days Will try to give her food today once mental status improves DVT PROPHYLAXIS scds re: hemorrhage DISPOSITION PT/OT- not participating monitor in tele Vital Signs: Date Time Temp Pulse Resp B/P Pulse Ox O2 Delivery O2 Flow Rate FiO2 07/10/16 08:00 Nasal Cannula 4.0 07/10/16 07:49 94 18 93 Nasal Cannula 4.0 07/10/16 06:47 119 146/99 07/10/16 04:34 36.9 124 18 145/90 94 Nasal Cannula 4.0 07/10/16 04:00 Nasal Cannula 4.0 07/10/16 00:24 37.0 134 22 157/88 94 Nasal Cannula 4.0 07/10/16 00:23 134 157/88 07/09/16 23:59 Nasal Cannula 4.0 07/09/16 20:04 97 18 95 Nasal Cannula 4.0 07/09/16 20:00 97 Nasal Cannula 4.0 07/09/16 20:00 97 Nasal Cannula 4.0 07/09/16 19:21 36.8 136 19 153/82 97 Nasal Cannula 3.0 07/09/16 18:21 140 160/110 07/09/16 16:31 101 24 97 Nasal Cannula 4.0 07/09/16 16:00 97 Nasal Cannula 4.0 07/09/16 15:36 36.7 135 20 165/83 100 Nasal Cannula 4.0 07/09/16 12:02 142 151/86 07/09/16 12:00 142 151/86 07/09/16 12:00 Nasal Cannula 4.0 07/09/16 11:45 37.0 137 22 151/86 98 4.0 Lab Results: Results Past 24 Hours Test 07/09/16 11:07 07/09/16 16:09 07/09/16 20:48 07/10/16 06:03 Range/Units Bedside Glucose 157 146 162 70-90 mg/dl White Blood Count 16.66 4.8-10.8 K/uL Red Blood Count 4.42 4.2-5.4 M/uL Hemoglobin 13.8 12.0-16.0 g/dL Hematocrit 39.2 37-47 % Mean Corpuscular Volume 88.7 80-100 fL Mean Corpuscular Hemoglobin 31.2 25-34 pg Mean Corpuscular Hemoglobin Concent 35.2 32-36 g/dl RDW Standard Deviation 46.6 36.4-46.3 fL RDW Coefficient of Variation 14.3 11.5-14.5 % Platelet Count 192 130-400 K/uL Mean Platelet Volume 11.0 7.4-10.4 fL Sodium Level 137 136-145 mmol/L Potassium Level 4.0 3.5-5.1 mmol/L Chloride Level 99 98-107 mmol/L Carbon Dioxide Level 25 21-32 mmol/L Anion Gap 13.0 3-11 mmol/L Blood Urea Nitrogen 84 7-18 mg/dl Creatinine 6.00 0.60-1.20 mg/dl Est Creatinine Clear Calc Drug Dose 9.0 ml/min Estimated GFR () 7.5 Estimated GFR (Non- 6.4 BUN/Creatinine Ratio 13.9 10-20 Random Glucose 176 70-99 mg/dl Calcium Level 8.6 8.5-10.1 mg/dl Test 07/10/16 07:03 Range/Units Bedside Glucose 149 70-90 mg/dl
[2016-07-10] MEDS ORDERED: CIPROFLOXACIN CONSULT ACTIVE PRN ×2 (10:45)
[2016-07-10] MEDS: LEVETIRACETAM IV 500 MG in DEXTROSE 5% 100ML 100 ML IV SCH ×2 (11:06→21:21)
[2016-07-10] MEDS: PANTOprazole INJ 40 MG in SYRINGE 0 ML IV SCH (11:06)
--- NOTE | 2016-07-10 12:07 | Nephrology Progress Note ---
Nephrology Progress Note Date of Service: Jul 10, 2016. Subjective 70 yo female with hypertensive urgency and milly on ckd stage 4 with atn which has required dialysis and delirium. pt more calm today and recognizes who I am. continues to urinate about 500cc a day but creatinine trending up without dialysis. Objective Date Time Temp Pulse Resp B/P Pulse Ox O2 Delivery O2 Flow Rate FiO2 07/10/16 11:38 113 18 93 Nasal Cannula 4.0 07/10/16 08:00 Nasal Cannula 4.0 07/10/16 07:49 94 18 93 Nasal Cannula 4.0 07/10/16 06:47 119 146/99 07/10/16 04:34 36.9 124 18 145/90 94 Nasal Cannula 4.0 07/10/16 04:00 Nasal Cannula 4.0 07/10/16 00:24 37.0 134 22 157/88 94 Nasal Cannula 4.0 07/10/16 00:23 134 157/88 07/09/16 23:59 Nasal Cannula 4.0 07/09/16 20:04 97 18 95 Nasal Cannula 4.0 07/09/16 20:00 97 Nasal Cannula 4.0 07/09/16 20:00 97 Nasal Cannula 4.0 07/09/16 19:21 36.8 136 19 153/82 97 Nasal Cannula 3.0 07/09/16 18:21 140 160/110 07/09/16 16:31 101 24 97 Nasal Cannula 4.0 07/09/16 16:00 97 Nasal Cannula 4.0 07/09/16 15:36 36.7 135 20 165/83 100 Nasal Cannula 4.0 Physical Exam: General-more calm, oriented x 2 today Eyes-no scleral icterus ENT-mmm Neck-supple Lungs-decreased at bases Heart-irregular, tachy Abdomen-bs+ s/nt/nd, +ventral hernia Extremities-no edema Neuro-more oriented today Current Inpatient Medications Medications (Trade) Dose Ordered Sig/Nydia Route Start Time Stop Time Status Last Admin Dose Admin Nifedipine (Procardia Xl Tab) 90 mg QAM PO 07/05/16 09:00 08/04/16 08:59 07/08/16 08:10 90 MG Acetaminophen (Tylenol Tab) 650 mg Q4H PRN PO 07/04/16 02:15 08/03/16 02:14 07/08/16 01:09 650 MG Nitroglycerin (Nitrostat Tab) 0.4 mg UD PRN SL 07/04/16 02:15 08/03/16 02:14 Allopurinol (Zyloprim Tab) 450 mg DAILY PO 07/04/16 09:00 08/03/16 08:59 07/08/16 08:10 450 MG Famotidine (Pepcid Tab) 20 mg DAILY PO 07/04/16 09:00 08/03/16 08:59 07/08/16 08:11 20 MG Levetiracetam (Keppra Tab) 500 mg BID PO 07/04/16 09:00 08/03/16 08:59 Future Hold 07/09/16 20:47 500 MG Metoprolol Succinate (Toprol Xl Tab) 125 mg HS PO 07/04/16 21:00 08/03/16 20:59 07/09/16 20:46 125 MG Tiotropium [place] (Spiriva Handihaler Inhaler) 1 puff DAILY INH 07/04/16 09:00 08/03/16 08:59 07/08/16 08:11 1 PUFF Polyethylene (Miralax Powder Packet) 17 gm DAILY PRN PO 07/04/16 02:15 08/03/16 02:14 Clonidine HCl (Catapres Tab) 0.3 mg BID PO 07/04/16 09:00 08/03/16 08:59 07/09/16 20:45 0.3 MG Insulin Aspart (novoLOG ASPART) SLIDING SCALE If C... ACHS SC 07/04/16 07:00 08/03/16 06:59 07/07/16 17:08 1 UNITS Glucose (Glucose 40% Gel) 15-30 GRAMS 15 GRAMS... UD PRN PO 07/04/16 04:45 08/03/16 04:44 Glucose (Glucose Chew Tab) 4-8 Tablets 4 Tabl... UD PRN PO 07/04/16 04:45 08/03/16 04:44 Dextrose (Dextrose 50% 50ML Syringe) 25-50ML OF 50% DW IV FOR... UD PRN IV 07/04/16 04:45 08/03/16 04:44 Glucagon (Glucagon Inj) 1 mg UD PRN SQ 07/04/16 04:45 08/03/16 04:44 Tramadol HCl (Ultram Tab) FOR PAIN 25-50 MG 25 MG ... Q8H PRN PO 07/04/16 05:00 08/03/16 04:59 07/04/16 08:22 50 MG Hydralazine HCl (HydrALAZINE INJ) 10 mg Q6 PRN IV. 07/04/16 12:15 08/03/16 12:14 Bisacodyl (Dulcolax Tab) 5 mg BID PRN PO 07/05/16 11:30 08/04/16 11:29 Docusate Sodium (coLACE CAP) 100 mg BID PRN PO 07/05/16 21:00 08/04/16 20:59 07/07/16 08:27 100 MG Albuterol/ Ipratropium (Duoneb) 3 ml QIDR INH 07/08/16 16:00 08/07/16 15:59 07/10/16 11:38 3 ML Albuterol/ Ipratropium (Duoneb) 3 ml Q2H PRN INH 07/08/16 13:30 08/07/16 13:29 Metoprolol Tartrate (Lopressor Iv) 5 mg Q6H IV. 07/09/16 12:00 08/08/16 11:59 07/10/16 06:47 5 MG Metoprolol Tartrate 5 mg 5 mg Q4 PRN IV 07/10/16 10:00 08/09/16 09:59 Levetiracetam 500 mg/Dextrose 105 ml @ 420 mls/hr Q12 IV 07/10/16 10:30 08/09/16 10:29 07/10/16 11:06 420 MLS/HR Pantoprazole Sodium 40 mg/ Syringe 10 ml @ 5 mls/min DAILY@11 IV 07/10/16 11:00 08/09/16 10:59 07/10/16 11:06 5 MLS/MIN Ciprofloxacin/ Dextrose/Prmx (Cipro / D5w/ Premixed D5W) 100 ml @ 100 mls/hr Q24H IV 07/10/16 11:00 07/12/16 23:59 Ciprofloxacin (Consult) 1 ea UD PRN N/A 07/10/16 10:45 07/12/16 23:59 Last 24 Hours Test 07/09/16 16:09 07/09/16 20:48 07/10/16 06:03 07/10/16 07:03 Bedside Glucose 146 mg/dl 162 mg/dl 149 mg/dl White Blood Count 16.66 K/uL Red Blood Count 4.42 M/uL Hemoglobin 13.8 g/dL Hematocrit 39.2 % Mean Corpuscular Volume 88.7 fL Mean Corpuscular Hemoglobin 31.2 pg Mean Corpuscular Hemoglobin Concent 35.2 g/dl RDW Standard Deviation 46.6 fL RDW Coefficient of Variation 14.3 % Platelet Count 192 K/uL Mean Platelet Volume 11.0 fL Sodium Level 137 mmol/L Potassium Level 4.0 mmol/L Chloride Level 99 mmol/L Carbon Dioxide Level 25 mmol/L Anion Gap 13.0 mmol/L Blood Urea Nitrogen 84 mg/dl Creatinine 6.00 mg/dl Est Creatinine Clear Calc Drug Dose 9.0 ml/min Estimated GFR () 7.5 Estimated GFR (Non- 6.4 BUN/Creatinine Ratio 13.9 Random Glucose 176 mg/dl Calcium Level 8.6 mg/dl Test 07/10/16 11:12 Bedside Glucose 160 mg/dl Assessment & Plan MILLY/ATN-although urinating, still requires dialysis. will plan on dialysis again tomorrow to help optimize electrolytes and continue to improve volume status. has delirium of unclear etiology. hopefully improves with time.
[2016-07-10] MEDS: CIPROFLOXACIN / D5W 200 MG in PREMIXED IN D5W 100 ML IV SCH (13:00)
[2016-07-10] MEDS: METOPROLOL SUCC 50MG EXT REL TAB PO SCH (21:22)
[2016-07-11] VITALS (24 sets, daily range): BP systolic 129–173; BP diastolic 82–115; PULSE 77–116; TEMP 35.7–36.9; O2SAT 90–97
[2016-07-11] MEDS: METOPROLOL TARTRATE 1 MG/ML VIAL IV. SCH ×3 (00:39→12:00)
[2016-07-11] MEDS: ALBUT/IPRATROP 3MG/0.5MG NEB 3 ML VIAL INH SCH ×4 (07:13→19:00)
[2016-07-11] MEDS: NIFEdipine 30 MG CR TAB PO SCH (08:06)
[2016-07-11] MEDS: LEVETIRACETAM IV 500 MG in DEXTROSE 5% 100ML 100 ML IV SCH (08:07)
[2016-07-11] MEDS: ALLOPURINOL 300 MG TAB PO SCH (08:07)
[2016-07-11] MEDS: CLONIDINE HCL 0.1 MG TAB PO SCH ×2 (08:07→20:58)
[2016-07-11] MEDS: TIOTROPIUM BROMIDE 5 PUFF/90 MCG INH INH SCH (08:07)
[2016-07-11] MEDS: FAMOTIDINE 20 MG TAB PO SCH (08:08)
[2016-07-11 08:11] LABS: CALCIUM 8.7 mg/dl (8.5-10.1); CREATININE 6.6 mg/dl (0.60-1.20); POTASSIUM 4.4 mmol/L (3.5-5.1)
[2016-07-11] MEDS: INSULIN ASPART 100 UNITS/ML 3 ML PEN SC SCH ×4 (08:20→20:54)
--- NOTE | 2016-07-11 08:30 | Nephrology Progress Note ---
Nephrology Progress Note Date of Service: Jul 11, 2016. Subjective seen on rounds this am 0715; pt states she is "no good" b/c of dyspnea; care team aware and pt undergoing neb tx at time of my eval. denies musculoskeletal or chest pain. no diarrhea./ n/v. Objective Date Time Temp Pulse Resp B/P Pulse Ox O2 Delivery O2 Flow Rate FiO2 07/11/16 07:13 116 20 90 Nasal Cannula 4.0 07/11/16 05:52 104 168/91 07/11/16 04:15 Nasal Cannula 4.0 07/11/16 03:43 36.7 104 18 168/91 92 Nasal Cannula 4.0 07/11/16 00:39 108 165/104 07/11/16 00:17 Nasal Cannula 4.0 07/10/16 23:56 36.8 108 18 165/104 93 Nasal Cannula 4.0 07/10/16 20:50 Nasal Cannula 4.0 07/10/16 20:04 36.9 126 20 161/77 92 Room Air 07/10/16 19:35 117 20 84 Room Air 07/10/16 18:09 119 158/97 07/10/16 16:17 36.7 119 22 158/97 94 Nasal Cannula 4.0 07/10/16 16:00 Nasal Cannula 4.0 07/10/16 15:36 113 18 96 Nasal Cannula 4.0 07/10/16 13:00 117 148/86 07/10/16 12:00 36.6 117 20 148/86 95 Nasal Cannula 4.0 07/10/16 12:00 Nasal Cannula 4.0 07/10/16 11:38 113 18 93 Nasal Cannula 4.0 Physical Exam: General-lying flat getting neb tx; some increased WOB; no other distress Eyes-no scleral icterus ENT-dry mm Neck-supple Lungs-diffuse wheezes BL, prolonged exp phase Heart-irregular, tachy in 100s Abdomen-bs+ s/nt/nd, +ventral hernia, grove w/ ample urine Extremities-no edema Neuro-schmidt, limited speech today, not overtly confused Current Inpatient Medications Medications (Trade) Dose Ordered Sig/Nydia Route Start Time Stop Time Status Last Admin Dose Admin Nifedipine (Procardia Xl Tab) 90 mg QAM PO 07/05/16 09:00 08/04/16 08:59 07/11/16 08:06 90 MG Acetaminophen (Tylenol Tab) 650 mg Q4H PRN PO 07/04/16 02:15 08/03/16 02:14 07/08/16 01:09 650 MG Nitroglycerin (Nitrostat Tab) 0.4 mg UD PRN SL 07/04/16 02:15 08/03/16 02:14 Allopurinol (Zyloprim Tab) 450 mg DAILY PO 07/04/16 09:00 08/03/16 08:59 07/11/16 08:07 450 MG Famotidine (Pepcid Tab) 20 mg DAILY PO 07/04/16 09:00 08/03/16 08:59 07/11/16 08:08 20 MG Levetiracetam (Keppra Tab) 500 mg BID PO 07/04/16 09:00 08/03/16 08:59 Future Hold 07/09/16 20:47 500 MG Metoprolol Succinate (Toprol Xl Tab) 125 mg HS PO 07/04/16 21:00 08/03/16 20:59 07/10/16 21:22 125 MG Tiotropium [place] (Spiriva Handihaler Inhaler) 1 puff DAILY INH 07/04/16 09:00 08/03/16 08:59 07/11/16 08:07 1 PUFF Polyethylene (Miralax Powder Packet) 17 gm DAILY PRN PO 07/04/16 02:15 08/03/16 02:14 Clonidine HCl (Catapres Tab) 0.3 mg BID PO 07/04/16 09:00 08/03/16 08:59 07/11/16 08:07 0.3 MG Insulin Aspart (novoLOG ASPART) SLIDING SCALE If C... ACHS SC 07/04/16 07:00 08/03/16 06:59 07/11/16 08:20 1 UNITS Glucose (Glucose 40% Gel) 15-30 GRAMS 15 GRAMS... UD PRN PO 07/04/16 04:45 08/03/16 04:44 Glucose (Glucose Chew Tab) 4-8 Tablets 4 Tabl... UD PRN PO 07/04/16 04:45 08/03/16 04:44 Dextrose (Dextrose 50% 50ML Syringe) 25-50ML OF 50% DW IV FOR... UD PRN IV 07/04/16 04:45 08/03/16 04:44 Glucagon (Glucagon Inj) 1 mg UD PRN SQ 07/04/16 04:45 08/03/16 04:44 Tramadol HCl (Ultram Tab) FOR PAIN 25-50 MG 25 MG ... Q8H PRN PO 07/04/16 05:00 08/03/16 04:59 07/04/16 08:22 50 MG Hydralazine HCl (HydrALAZINE INJ) 10 mg Q6 PRN IV. 07/04/16 12:15 08/03/16 12:14 Bisacodyl (Dulcolax Tab) 5 mg BID PRN PO 07/05/16 11:30 08/04/16 11:29 Docusate Sodium (coLACE CAP) 100 mg BID PRN PO 07/05/16 21:00 08/04/16 20:59 07/07/16 08:27 100 MG Albuterol/ Ipratropium (Duoneb) 3 ml QIDR INH 07/08/16 16:00 08/07/16 15:59 07/11/16 07:13 3 ML Albuterol/ Ipratropium (Duoneb) 3 ml Q2H PRN INH 07/08/16 13:30 08/07/16 13:29 Metoprolol Tartrate (Lopressor Iv) 5 mg Q6H IV. 07/09/16 12:00 08/08/16 11:59 07/11/16 05:52 5 MG Metoprolol Tartrate 5 mg 5 mg Q4 PRN IV 07/10/16 10:00 08/09/16 09:59 Levetiracetam 500 mg/Dextrose 105 ml @ 420 mls/hr Q12 IV 07/10/16 10:30 08/09/16 10:29 07/11/16 08:07 420 MLS/HR Pantoprazole Sodium 40 mg/ Syringe 10 ml @ 5 mls/min DAILY@11 IV 07/10/16 11:00 08/09/16 10:59 07/10/16 11:06 5 MLS/MIN Ciprofloxacin/ Dextrose/Prmx (Cipro / D5w/ Premixed D5W) 100 ml @ 100 mls/hr Q24H IV 07/10/16 11:00 07/12/16 23:59 07/10/16 13:00 100 MLS/HR Ciprofloxacin (Consult) 1 ea UD PRN N/A 07/10/16 10:45 07/12/16 23:59 Last 24 Hours Test 07/10/16 11:12 07/10/16 15:56 07/10/16 20:35 07/11/16 07:08 Bedside Glucose 160 mg/dl 156 mg/dl 122 mg/dl 170 mg/dl Test 07/11/16 07:10 Sodium Level 135 mmol/L Potassium Level 4.4 mmol/L Chloride Level 98 mmol/L Carbon Dioxide Level 24 mmol/L Anion Gap 13.0 mmol/L Blood Urea Nitrogen 99 mg/dl Creatinine 6.60 mg/dl Est Creatinine Clear Calc Drug Dose 8.4 ml/min Estimated GFR () 6.7 Estimated GFR (Non- 5.7 BUN/Creatinine Ratio 15.0 Random Glucose 189 mg/dl Calcium Level 8.7 mg/dl Assessment & Plan 70 yo female with hypertensive urgency and milly on ckd stage 4 with atn which has required dialysis and delirium. continues to urinate yesterday nearly 900 mL but creatinine trending up without dialysis. MILLY/ATN-although urinating, still requires dialysis. will plan on dialysis again tomorrow to help optimize electrolytes and continue to improve volume status. has delirium of unclear etiology. hopefully improves with time Dyspnea/wheezing >> ensured she is first tx today and should be on HD by 830; low threshold for CXR; further care per primary service Appreciate consult; will follow with you.
[2016-07-11] MEDS: CIPROFLOXACIN / D5W 200 MG in PREMIXED IN D5W 100 ML IV SCH (14:27)
[2016-07-11] MEDS: PANTOprazole INJ 40 MG in SYRINGE 0 ML IV SCH (14:27)
[2016-07-11] MEDS ORDERED: GUAIFENESIN SUGAR FREE 100 MG/5 ML UDC PO PRN (15:00)
--- NOTE | 2016-07-11 15:09 | Progress Note ---
Internal Med Progress Note Date of Service: Jul 11, 2016. Provider Documentation: SUBJECTIVE: Patient's mental status is much better today- AAOX2. Delirium resolved. Had breakfast today. C/o cough congestion, but unable to bring up sputum. BM + Denies any chest pain, nausea, vomiting, abdominal pain. On 4 L oxygen Tele- Sinus tachycardia 100-110s, improved OBJECTIVE : Vital Signs-as noted below Exam: General-AAOX2, not in distress ENT-normal hearing Lungs-AEBE decreased,few rales, few wheezes Heart- S1 and S2 heard, regular rate and rhythm, no murmurs. Tunneled line + Abdomen-soft , distended with umbilical hernia +, BS + Extremities-Trace edema- improved significantly compared to last admission Lab data as noted below. ASSESSMENT & PLAN: ASSESSMENT & PLAN : DELIRIUM : Resolved today -Was confused since dialysis--> progressively worsening x 3 days ---> today resolved. Dysequilibrium syndrome ? with initiation of dialysis. -CT head repeat- No change, stable hemorrhage, ABGs-reviewed- respiratory alkalosis, CXR- congestion + -Monitor closely. Avoid sedatives/haldol. . Off 1:1 observation ACUTE HYPOXIC RESPIRATORY FAILURE - Marginal improvement -On 4 L Oxygen - down from 5 L -Duonebs QID and PRN as wheezes + -CXR- congestion , ABG- resp alkalosis. Will repeat CXR in AM with worsening cough/risk of aspiration and consistent requirement of oxygen -On dialysis -Add mucinex BID, Robitussin PRN MILLY ON CKD-III - Worsened -Baseline creatinine around 1.8, presented with 4.0 --> 5.60-->6.60 and thus started on dialysis on 07/06/16 -Likely volume depletion secondary to nausea/vomiting in setting of chronic lasix use (recent admission-increased dose to help with diuresis/bp control)/ ATN with lowering BP -Started on dialysis on 07/06/16 - After 2 sessions, started with fluid removal on 07/08/16. Per nephrology -Monitor closely SINUS TACHYCARDIA- Improved Likely secondary to not taking her PO medications -IV Lopressor 5 mg q 6 hours scheduled --> Change back to PO and continue with IV PRN as needed for HR >120 -Monitor on telemetry HYPERTENSIVE URGENCY - Resolved, BP better but fluctuates Secondary to not taking meds due to nausea/vomiting. Known for difficulty controlling BP for years. Recent admission 06/28/16, prolonged stay due to difficult to manage BP, plus non compliant with her home medications -Last admission changes: Increased lasix to 80 mg BID, Clonidine increased to 0.3 mg BID, Nifedipine 90 mg daily added -Continue with Clonidine 0.3 mg BID, Nifedipine 90 mg daily, Metoprolol 125 mg ( home meds), IV Hydralazine PRN. Held lasix--> on dialysis -Monitor UTI-E COLI UA +VE, CT - left perinephric stranding. -S/P IV Rocephin (Day 3)- Discontinued and changed it to Ciprofloxacin BID (Day 11/04)--> changed from IV to PO -Urine c/S- E coli S/P NAUSEA/VOMITING - Resolved Possibly acute gastroenteritis vs related to UTI/Possible pyelo with ? left perinephric stranding on ct scan ? No diarrhea per patient, constipation + no BM for few days. C diff still pending collection -Tolerating diet well -CT abd/pelvis- 1. Asymmetric renal size, likely indicating mild right renal atrophy2. Nonobstructing right renal calculus3. Nonspecific left-sided perinephric stranding4. No evidence of bowel obstruction. No evidence of free air5. 2 cm left adrenal nodule6. Complex fat-containing bilobed umbilical hernia with mild infiltration of the fat CHRONIC DIASTOLIC CHF- -Per recent Echo EF of 50-55%. -Recently increased diuretics (last week during last admission) for better control of BP- lasix 80 mg BID. Held due to above -Now on dialysis -Monitor closely DEPRESSION, MILD - Now delirious Depressed due to personal stressors. -Psychiatry consult placed- appreciate inputs. No medications recommended at this time CAD S/P STENTING -Stable COPD as per records -Stable with no signs of exacerbation -Monitor HX OF CVA (Recent ICH, Hx of cerebral amyloid angiopathy as per records, Cerebellar infarct per recent CT scan last admission) This admission- stable small hemorrhage old with no new changes -On keppra BID likely prophylaxis ? DM2, well controlled as of recent HgA1c recent hba1c 5.9 -Not on meds -ISS, Accuchecks NUTRITION Mental status back to AAOX2 , thus taking PO DVT PROPHYLAXIS scds re: hemorrhage DISPOSITION PT/OT- participated today after many days in hospital monitor on tele Vital Signs: Date Time Temp Pulse Resp B/P Pulse Ox O2 Delivery O2 Flow Rate FiO2 07/11/16 12:15 109 173/106 07/11/16 12:00 Nasal Cannula 4.0 Humidified Oxygen 07/11/16 12:00 77 164/114 07/11/16 11:45 97 165/114 07/11/16 11:30 98 148/99 07/11/16 11:15 110 152/87 07/11/16 11:00 93 154/101 07/11/16 10:45 101 153/102 07/11/16 10:30 90 158/115 07/11/16 10:15 96 166/102 07/11/16 10:00 81 129/104 07/11/16 09:42 95 164/108 07/11/16 09:30 35.7 98 161/108 07/11/16 09:05 36.4 103 22 158/94 92 4.0 07/11/16 08:00 Nasal Cannula 4.0 Humidified Oxygen 07/11/16 07:13 116 20 90 Nasal Cannula 4.0 07/11/16 05:52 104 168/91 07/11/16 04:15 Nasal Cannula 4.0 07/11/16 03:43 36.7 104 18 168/91 92 Nasal Cannula 4.0 07/11/16 00:39 108 165/104 07/11/16 00:17 Nasal Cannula 4.0 07/10/16 23:56 36.8 108 18 165/104 93 Nasal Cannula 4.0 07/10/16 20:50 Nasal Cannula 4.0 07/10/16 20:04 36.9 126 20 161/77 92 Room Air 07/10/16 19:35 117 20 84 Room Air 07/10/16 18:09 119 158/97 07/10/16 16:17 36.7 119 22 158/97 94 Nasal Cannula 4.0 07/10/16 16:00 Nasal Cannula 4.0 07/10/16 15:36 113 18 96 Nasal Cannula 4.0 Lab Results: Results Past 24 Hours Test 07/10/16 15:56 07/10/16 20:35 07/11/16 07:08 07/11/16 07:10 Range/Units Bedside Glucose 156 122 170 70-90 mg/dl Sodium Level 135 136-145 mmol/L Potassium Level 4.4 3.5-5.1 mmol/L Chloride Level 98 98-107 mmol/L Carbon Dioxide Level 24 21-32 mmol/L Anion Gap 13.0 3-11 mmol/L Blood Urea Nitrogen 99 7-18 mg/dl Creatinine 6.60 0.60-1.20 mg/dl Est Creatinine Clear Calc Drug Dose 8.4 ml/min Estimated GFR () 6.7 Estimated GFR (Non- 5.7 BUN/Creatinine Ratio 15.0 10-20 Random Glucose 189 70-99 mg/dl Calcium Level 8.7 8.5-10.1 mg/dl
[2016-07-11] MEDS ORDERED: METOPROLOL TARTRATE 1 MG/ML VIAL IV PRN (18:00)
[2016-07-11] MEDS: GUAIFENESIN 600 MG TABCR PO SCH (20:55)
[2016-07-11] MEDS: METOPROLOL SUCC 50MG EXT REL TAB PO SCH (20:56)
--- NOTE | 2016-07-11 21:56 | DIAGNOSTIC IMAGING REPORT ---
CHEST ONE VIEW PORTABLE CLINICAL HISTORY: Encephalopathy. COMPARISON STUDY: Chest radiograph July 08, 2016. FINDINGS: A dual-lumen right internal jugular central venous catheter remains in place. Marked cardiomegaly is unchanged. There is pulmonary vascular congestion with suspected pulmonary edema. A right pleural effusion is increased in size. There is a suspected small left pleural effusion. There are bibasilar opacities, right greater than left. IMPRESSION: Progression of suspected pulmonary edema, bilateral pleural effusions and right basilar opacity which likely reflects atelectasis. Electronically signed by: Andrews Gauthier M.D. 07/11/2016 9:54 PM Dictated Date/Time: 07/11/2016 9:53 PM
[2016-07-12] VITALS (12 sets, daily range): BP systolic 138–177; BP diastolic 79–101; PULSE 84–124; TEMP 36.3–36.7; O2SAT 92–99
[2016-07-12] MEDS: ACETAMINOPHEN 325 MG TAB PO PRN ×2 (03:37→20:50)
[2016-07-12] MEDS: ALBUT/IPRATROP 3MG/0.5MG NEB 3 ML VIAL INH SCH ×4 (07:18→20:00)
[2016-07-12 07:44] LABS: BLOOD UREA NITROGEN 76 mg/dl (7-18); BUN/CREATININE RATIO 14.7 (10-20); CALCIUM 8.5 mg/dl (8.5-10.1); CARBON DIOXIDE 24 mmol/L (21-32); CHLORIDE 99 mmol/L (98-107); GLUCOSE 139 mg/dl (70-99); SODIUM 134 mmol/L (136-145)
[2016-07-12 08:40] LABS: HEMATOCRIT 42.3 % (37-47); MEAN CORPUSCULAR HEMOGLOBIN 31.3 pg (25-34); MEAN CORPUSCULAR HGB CONC 34.8 g/dl (32-36); MEAN PLATELET VOLUME 10.9 fL (7.4-10.4); PLATELET COUNT 182 K/uL (130-400); WHITE BLOOD COUNT 11.35 K/uL (4.8-10.8)
--- NOTE | 2016-07-12 08:57 | Nephrology Progress Note ---
Nephrology Progress Note Date of Service: Jul 12, 2016. Subjective pt cont to feel poorly. denies musculoskeletal or chest pain. no diarrhea/n/v. has uneaten brkfst in front of her. breathing again short/tight this am as yesterday am though per nursing/ physician staff she settled down in afternoon Objective Date Time Temp Pulse Resp B/P Pulse Ox O2 Delivery O2 Flow Rate FiO2 07/12/16 08:12 36.5 84 20 177/101 95 5.0 07/12/16 07:18 88 16 94 Nasal Cannula 5.0 07/12/16 04:01 36.7 109 20 148/87 94 Nasal Cannula 5.0 07/12/16 04:00 96 Nasal Cannula 5.0 Humidified Oxygen 07/11/16 23:59 96 Nasal Cannula 5.0 Humidified Oxygen 07/11/16 23:56 36.8 114 20 154/91 93 Nasal Cannula 5.0 07/11/16 20:00 96 Nasal Cannula 5.0 Humidified Oxygen 07/11/16 19:10 36.9 105 20 150/96 96 Nasal Cannula 5.0 Humidified Oxygen 07/11/16 19:00 94 16 94 Nasal Cannula 5.0 07/11/16 16:00 Nasal Cannula 4.0 Humidified Oxygen 07/11/16 15:26 36.4 93 18 149/82 97 5.0 07/11/16 15:03 110 20 90 Nasal Cannula 4.0 07/11/16 13:00 35.8 148/108 07/11/16 12:30 77 161/105 07/11/16 12:15 109 173/106 07/11/16 12:00 Nasal Cannula 4.0 Humidified Oxygen 07/11/16 12:00 77 164/114 07/11/16 11:45 97 165/114 07/11/16 11:30 98 148/99 07/11/16 11:15 110 152/87 07/11/16 11:00 93 154/101 07/11/16 10:45 101 153/102 07/11/16 10:30 90 158/115 07/11/16 10:15 96 166/102 07/11/16 10:00 81 129/104 07/11/16 09:42 95 164/108 07/11/16 09:30 35.7 98 161/108 07/11/16 09:05 36.4 103 22 158/94 92 4.0 Physical Exam: General-sitting up dosing, arouseable; some increased WOB; no other distress; oriented to self and place Eyes-no scleral icterus ENT-dry mm Neck-supple Lungs-diffuse wheezes BL, prolonged exp phase Heart-irregular Abdomen-bs+ s/nt/nd, +ventral hernia, grove w/ ample urine Extremities-no edema Neuro-schmidt, limited speech/ ineraction but not overtly confused / tired Current Inpatient Medications Medications (Trade) Dose Ordered Sig/Nydia Route Start Time Stop Time Status Last Admin Dose Admin Nifedipine (Procardia Xl Tab) 90 mg QAM PO 07/05/16 09:00 08/04/16 08:59 07/11/16 08:06 90 MG Acetaminophen (Tylenol Tab) 650 mg Q4H PRN PO 07/04/16 02:15 08/03/16 02:14 07/12/16 03:37 650 MG Nitroglycerin (Nitrostat Tab) 0.4 mg UD PRN SL 07/04/16 02:15 08/03/16 02:14 Allopurinol (Zyloprim Tab) 450 mg DAILY PO 07/04/16 09:00 08/03/16 08:59 07/11/16 08:07 450 MG Famotidine (Pepcid Tab) 20 mg DAILY PO 07/04/16 09:00 08/03/16 08:59 07/11/16 08:08 20 MG Levetiracetam (Keppra Tab) 500 mg BID PO 07/04/16 09:00 08/03/16 08:59 Future Hold 07/09/16 20:47 500 MG Metoprolol Succinate (Toprol Xl Tab) 125 mg HS PO 07/04/16 21:00 08/03/16 20:59 07/11/16 20:56 125 MG Tiotropium [place] (Spiriva Handihaler Inhaler) 1 puff DAILY INH 07/04/16 09:00 08/03/16 08:59 07/11/16 08:07 1 PUFF Polyethylene (Miralax Powder Packet) 17 gm DAILY PRN PO 07/04/16 02:15 08/03/16 02:14 Clonidine HCl (Catapres Tab) 0.3 mg BID PO 07/04/16 09:00 08/03/16 08:59 07/11/16 20:58 0.3 MG Insulin Aspart (novoLOG ASPART) SLIDING SCALE If C... ACHS SC 07/04/16 07:00 08/03/16 06:59 07/11/16 08:20 1 UNITS Glucose (Glucose 40% Gel) 15-30 GRAMS 15 GRAMS... UD PRN PO 07/04/16 04:45 08/03/16 04:44 Glucose (Glucose Chew Tab) 4-8 Tablets 4 Tabl... UD PRN PO 07/04/16 04:45 08/03/16 04:44 Dextrose (Dextrose 50% 50ML Syringe) 25-50ML OF 50% DW IV FOR... UD PRN IV 07/04/16 04:45 08/03/16 04:44 Glucagon (Glucagon Inj) 1 mg UD PRN SQ 07/04/16 04:45 08/03/16 04:44 Tramadol HCl (Ultram Tab) FOR PAIN 25-50 MG 25 MG ... Q8H PRN PO 07/04/16 05:00 08/03/16 04:59 07/04/16 08:22 50 MG Hydralazine HCl (HydrALAZINE INJ) 10 mg Q6 PRN IV. 07/04/16 12:15 08/03/16 12:14 Bisacodyl (Dulcolax Tab) 5 mg BID PRN PO 07/05/16 11:30 08/04/16 11:29 Docusate Sodium (coLACE CAP) 100 mg BID PRN PO 07/05/16 21:00 08/04/16 20:59 07/07/16 08:27 100 MG Albuterol/ Ipratropium (Duoneb) 3 ml QIDR INH 07/08/16 16:00 08/07/16 15:59 07/12/16 07:18 3 ML Albuterol/ Ipratropium (Duoneb) 3 ml Q2H PRN INH 07/08/16 13:30 08/07/16 13:29 Ciprofloxacin (Consult) 1 ea UD PRN N/A 07/10/16 10:45 07/12/16 23:59 Metoprolol Tartrate (Lopressor Iv) 5 mg Q6 PRN IV 07/11/16 18:00 08/10/16 17:59 Ciprofloxacin (Ciprofloxacin Tab) 250 mg DAILY PO 07/12/16 09:00 07/12/16 09:01 Guaifenesin (Mucinex Contr Rel Tab) 600 mg Q12 PO 07/11/16 21:00 08/10/16 20:59 07/11/16 20:55 600 MG Guaifenesin (Robitussin Sugar Free Syrup) 100 mg Q6H PRN PO 07/11/16 15:00 08/10/16 14:59 Last 24 Hours Test 07/11/16 16:33 07/11/16 20:00 07/12/16 06:36 07/12/16 06:48 Bedside Glucose 132 mg/dl 96 mg/dl 136 mg/dl Sodium Level 134 mmol/L Potassium Level mmol/L Chloride Level 99 mmol/L Carbon Dioxide Level 24 mmol/L Anion Gap 11.0 mmol/L Blood Urea Nitrogen 76 mg/dl Creatinine 5.30 mg/dl Est Creatinine Clear Calc Drug Dose 10.6 ml/min Estimated GFR () 8.7 Estimated GFR (Non- 7.5 BUN/Creatinine Ratio 14.7 Random Glucose 139 mg/dl Calcium Level 8.5 mg/dl Test 07/12/16 08:03 White Blood Count 11.35 K/uL Red Blood Count 4.70 M/uL Hemoglobin 14.7 g/dL Hematocrit 42.3 % Mean Corpuscular Volume 90.0 fL Mean Corpuscular Hemoglobin 31.3 pg Mean Corpuscular Hemoglobin Concent 34.8 g/dl RDW Standard Deviation 46.7 fL RDW Coefficient of Variation 14.2 % Platelet Count 182 K/uL Mean Platelet Volume 10.9 fL Potassium Level 4.2 mmol/L Assessment & Plan 70 yo female with hypertensive urgency and milly on ckd stage 4 with atn which has required dialysis and also w/ delirium. urine output cont to increase which is heartening; despite this and significant fluid removal yesterday her breathing is worse today. creatinine also trending up without dialysis. MILLY/ATN-although urinating, still requires dialysis. will plan on dialysis today and likely tomorrow as well to help optimize electrolytes and continue to improve respiratory status. hopefully improves with time Dyspnea/wheezing/plm edema on XR >> more hypoxic today; further HD today Appreciate consult; will follow with you.
[2016-07-12] MEDS ORDERED: HEPARIN SOD (PORCINE) 1000 UNIT/ML 10 ML VIAL IV SCH ×2 (09:00)
[2016-07-12] MEDS ORDERED: CIPROFLOXACIN 250 MG TAB PO SCH (09:00)
[2016-07-12] MEDS: INSULIN ASPART 100 UNITS/ML 3 ML PEN SC SCH ×4 (09:10→20:45)
[2016-07-12] MEDS: TIOTROPIUM BROMIDE 5 PUFF/90 MCG INH INH SCH (09:11)
[2016-07-12] MEDS: NIFEdipine 30 MG CR TAB PO SCH (09:17)
[2016-07-12] MEDS: GUAIFENESIN 600 MG TABCR PO SCH ×2 (09:17→20:47)
[2016-07-12] MEDS: ALLOPURINOL 300 MG TAB PO SCH (09:18)
[2016-07-12] MEDS: CLONIDINE HCL 0.1 MG TAB PO SCH ×2 (09:18→20:46)
[2016-07-12] MEDS: FAMOTIDINE 20 MG TAB PO SCH (09:18)
--- NOTE | 2016-07-12 11:25 | Progress Note ---
Medicine Progress Note Date & Time of Visit: Jul 12, 2016 at 11:15. Subjective patient seen sitting in bedside chair awake, alert, states she feels tired has dry cough, denies dyspnea no chest pain ,nausea, dizziness no other symptoms Objective Last 8 Hrs Date Time Temp Pulse Resp B/P Pulse Ox O2 Delivery O2 Flow Rate FiO2 07/12/16 11:14 36.6 100 18 138/94 99 5.0 07/12/16 11:06 100 14 94 Nasal Cannula 5.0 07/12/16 08:12 36.5 84 20 177/101 95 5.0 07/12/16 08:00 Nasal Cannula 4.0 Humidified Oxygen 07/12/16 07:18 88 16 94 Nasal Cannula 5.0 07/12/16 04:01 36.7 109 20 148/87 94 Nasal Cannula 5.0 07/12/16 04:00 96 Nasal Cannula 5.0 Humidified Oxygen Physical Exam: General- oriented x 2, not in distress Head- atraumatic Eyes- anicteric Neck- supple, no JVD Lungs- clear breath sounds bilaterally, no rales/wheezes Heart- normal rate, regular rhythm; no murmurs Abdomen- normal bowel sounds, soft, nontender Extremities- no pretibial edema, no calf tenderness Neuro- alert, oriented x 2;no gross focal deficits Skin- warm & dry Laboratory Results: Last 24 Hours Test 07/11/16 16:33 07/11/16 20:00 07/12/16 06:36 07/12/16 06:48 Bedside Glucose 132 mg/dl 96 mg/dl 136 mg/dl Sodium Level 134 mmol/L Potassium Level mmol/L Chloride Level 99 mmol/L Carbon Dioxide Level 24 mmol/L Anion Gap 11.0 mmol/L Blood Urea Nitrogen 76 mg/dl Creatinine 5.30 mg/dl Est Creatinine Clear Calc Drug Dose 10.6 ml/min Estimated GFR () 8.7 Estimated GFR (Non- 7.5 BUN/Creatinine Ratio 14.7 Random Glucose 139 mg/dl Calcium Level 8.5 mg/dl Test 07/12/16 08:03 White Blood Count 11.35 K/uL Red Blood Count 4.70 M/uL Hemoglobin 14.7 g/dL Hematocrit 42.3 % Mean Corpuscular Volume 90.0 fL Mean Corpuscular Hemoglobin 31.3 pg Mean Corpuscular Hemoglobin Concent 34.8 g/dl RDW Standard Deviation 46.7 fL RDW Coefficient of Variation 14.2 % Platelet Count 182 K/uL Mean Platelet Volume 10.9 fL Potassium Level 4.2 mmol/L Assessment & Plan MILLY ON CKD-III - Worsened -Baseline creatinine around 1.8, presented with 4.0 --> 5.60-->6.60 and thus started on dialysis on 07/06/16 -Likely volume depletion secondary to nausea/vomiting in setting of chronic lasix use -Started on dialysis on 07/06/16 - After 2 sessions, started with fluid removal on 07/08/16 - Nephro on board possible HD tomorrow ACUTE HYPOXIC RESPIRATORY FAILURE from CHF? in the setting ESRD r/o Aspiration Pneumonia Pleural Effusion R>L - speech therapy eval to r/o aspiration on HD -Duonebs QID - may need CT chest if with no improvement DELIRIUM =Resolved from Dysequilibrium syndrome ? with initiation of dialysis. -CT head repeat- No change, stable hemorrhage, ABGs-reviewed- respiratory alkalosis, CXR- congestion + -Monitor closely SINUS TACHYCARDIA- Improved Likely secondary to not taking her PO medications HYPERTENSIVE URGENCY Secondary to not taking meds due to nausea/vomiting. -Continue with Clonidine 0.3 mg BID, Nifedipine 90 mg daily, Metoprolol 125 mg ( home meds), IV Hydralazine PRN. Held lasix--> on dialysis -Monitor UTI-E COLI UA +VE, CT - left perinephric stranding. -Urine c/S- E coli -S/P IV Rocephin (Day 3)--> Ciprofloxacin BID (Day 11/04) S/P NAUSEA/VOMITING - Resolved Possibly acute gastroenteritis vs related to UTI/Possible pyelo with ? left perinephric stranding on ct scan ? No diarrhea per patient, constipation + no BM for few days. C diff still pending collection CHRONIC DIASTOLIC CHF- -Per recent Echo EF of 50-55%. - lasix on hold -Now on dialysis DEPRESSION, MILD - Depressed due to personal stressors. -Psychiatry consult placed- appreciate inputs. No medications recommended at this time CAD S/P STENTING -Stable COPD as per records -Stable with no signs of exacerbation -Monitor HX OF CVA (Recent ICH, Hx of cerebral amyloid angiopathy as per records, Cerebellar infarct per recent CT scan last admission) This admission- stable small hemorrhage old with no new changes -On keppra BID likely prophylaxis ? DM2, well controlled as of recent HgA1c recent hba1c 5.9 -Not on meds -ISS, Accuchecks NUTRITION Mental status back to AAOX2 , thus taking PO DVT PROPHYLAXIS scds re: hemorrhage DISPOSITION pending Current Inpatient Medications: Current Inpatient Medications Medications (Trade) Dose Ordered Sig/Nydia Route Start Time Stop Time Status Last Admin Dose Admin Nifedipine (Procardia Xl Tab) 90 mg QAM PO 07/05/16 09:00 08/04/16 08:59 07/12/16 09:17 90 MG Acetaminophen (Tylenol Tab) 650 mg Q4H PRN PO 07/04/16 02:15 08/03/16 02:14 07/12/16 03:37 650 MG Nitroglycerin (Nitrostat Tab) 0.4 mg UD PRN SL 07/04/16 02:15 08/03/16 02:14 Allopurinol (Zyloprim Tab) 450 mg DAILY PO 07/04/16 09:00 08/03/16 08:59 07/12/16 09:18 450 MG Famotidine (Pepcid Tab) 20 mg DAILY PO 07/04/16 09:00 08/03/16 08:59 07/12/16 09:18 20 MG Levetiracetam (Keppra Tab) 500 mg BID PO 07/04/16 09:00 08/03/16 08:59 Future Hold 07/09/16 20:47 500 MG Metoprolol Succinate (Toprol Xl Tab) 125 mg HS PO 07/04/16 21:00 08/03/16 20:59 07/11/16 20:56 125 MG Tiotropium [place] (Spiriva Handihaler Inhaler) 1 puff DAILY INH 07/04/16 09:00 08/03/16 08:59 07/12/16 09:11 1 PUFF Polyethylene (Miralax Powder Packet) 17 gm DAILY PRN PO 07/04/16 02:15 08/03/16 02:14 Clonidine HCl (Catapres Tab) 0.3 mg BID PO 07/04/16 09:00 08/03/16 08:59 07/12/16 09:18 0.3 MG Insulin Aspart (novoLOG ASPART) SLIDING SCALE If C... ACHS SC 07/04/16 07:00 08/03/16 06:59 07/11/16 08:20 1 UNITS Glucose (Glucose 40% Gel) 15-30 GRAMS 15 GRAMS... UD PRN PO 07/04/16 04:45 08/03/16 04:44 Glucose (Glucose Chew Tab) 4-8 Tablets 4 Tabl... UD PRN PO 07/04/16 04:45 08/03/16 04:44 Dextrose (Dextrose 50% 50ML Syringe) 25-50ML OF 50% DW IV FOR... UD PRN IV 07/04/16 04:45 08/03/16 04:44 Glucagon (Glucagon Inj) 1 mg UD PRN SQ 07/04/16 04:45 08/03/16 04:44 Tramadol HCl (Ultram Tab) FOR PAIN 25-50 MG 25 MG ... Q8H PRN PO 07/04/16 05:00 08/03/16 04:59 07/04/16 08:22 50 MG Hydralazine HCl (HydrALAZINE INJ) 10 mg Q6 PRN IV. 07/04/16 12:15 08/03/16 12:14 Bisacodyl (Dulcolax Tab) 5 mg BID PRN PO 07/05/16 11:30 08/04/16 11:29 Docusate Sodium (coLACE CAP) 100 mg BID PRN PO 07/05/16 21:00 08/04/16 20:59 07/07/16 08:27 100 MG Albuterol/ Ipratropium (Duoneb) 3 ml QIDR INH 07/08/16 16:00 08/07/16 15:59 07/12/16 11:06 3 ML Albuterol/ Ipratropium (Duoneb) 3 ml Q2H PRN INH 07/08/16 13:30 08/07/16 13:29 Metoprolol Tartrate (Lopressor Iv) 5 mg Q6 PRN IV 07/11/16 18:00 08/10/16 17:59 Guaifenesin (Mucinex Contr Rel Tab) 600 mg Q12 PO 07/11/16 21:00 08/10/16 20:59 07/12/16 09:17 600 MG Guaifenesin (Robitussin Sugar Free Syrup) 100 mg Q6H PRN PO 07/11/16 15:00 08/10/16 14:59 Heparin Sodium (Porcine) (Heparin Iv Bolus) 1,000 unit ONE IV 07/13/16 08:00 07/13/16 08:01 Heparin Sodium (Porcine) (Heparin Iv Bolus) 400 unit Q1H IV 07/13/16 08:00 07/13/16 10:01
--- NOTE | 2016-07-12 11:53 | DIAGNOSTIC IMAGING REPORT ---
CHEST ONE VIEW PORTABLE HISTORY: r/o pneumonia, pleural effusion COMPARISON: Chest 07/11/2016. FINDINGS: No pneumothorax. Right jugular dual-lumen catheter terminates in the proximal SVC. The heart remains enlarged. Pulmonary edema has slightly improved. Small bilateral pleural effusions and right basilar densities persist. IMPRESSION: 1. Slight improvement in the pulmonary edema pattern. 2. Small bilateral pleural effusions and right base airspace opacity persist. Electronically signed by: Javon Tariq M.D. 07/12/2016 11:52 AM Dictated Date/Time: 07/12/2016 11:50 AM
[2016-07-12] MEDS ORDERED: PIPERACILL/TAZOBAC CONSULT ACTIVE PRN (12:15)
[2016-07-12 12:16] LABS: ALLEN TEST POS (POS); ARTERIAL BLD GAS O2 SATURATION 96.4 % (90-95); ARTERIAL BLOOD GAS BASE EXCESS 0.2 mEq/L (-9-1.8); ARTERIAL BLOOD GAS HCO3 26 mmol/L (19-24); ARTERIAL BLOOD GAS PO2 84 mm/Hg (80-95); ARTERIAL BLOOD GAS pH 7.38 (7.35-7.45); O2 ADMINISTRATION 5L
--- NOTE | 2016-07-12 13:15 | Progress Note ---
Progress Note Date of Service Jul 12, 2016. Progress Note abg noted no hypercapnea patient noted to be obtunded mild eyelid twitching with painful stimuli no response to sternal rub bp systolic 172, Pulse ox 96%,BSG within normal limits not in distress, no accessory muscle use CT head STAT ordered to r/o CVA has history of seizure during cerebellar hemorrhage in 03/2016, on keppra, held yesterday will restart today Jaylen Rudolph MD
[2016-07-12] MEDS ORDERED: PIPERACILL/TAZOBAC IV 4.5 GM in DEXTROSE 5% 100ML IV SCH (13:30)
--- NOTE | 2016-07-12 13:33 | DIAGNOSTIC IMAGING REPORT ---
ADDENDUM Review of multiple CTs dating to 2016 shows a small high density focus medial to the occipital horn right lateral ventricle to represent most likely residual calcific change or scar formation. This is not appear to represent a repeat bleed or residual from the patient's prior bleed based on density characteristics.. Electronically signed by: Wes Martinez M.D. 07/13/2016 12:51 PM Dictated Date/Time: 07/13/2016 12:50 PM ORIGINAL REPORT HEAD CT NONCONTRAST CT DOSE: 720.95 mGycm HISTORY: Stroke r/o cava TECHNIQUE: Multiaxial CT images of the head were performed without the use of intravenous contrast. Comparison: 07/08/2016 Findings: The paranasal sinuses and mastoid air cells are clear. The calvarium and skull base are intact. The ventricles and sulci are within normal limits. There is no mass, hematoma, midline shift, or acute infarct. There are findings of a considerable chronic small vessel change as well as several old infarcts. There is no evidence for acute intracranial hemorrhage. Impression: Chronic and age-related change. No acute process. Multiple old infarcts Electronically signed by: Wes Martinez M.D. 07/12/2016 1:31 PM Dictated Date/Time: 07/12/2016 1:13 PM
[2016-07-12] MEDS ORDERED: LEVETIRACETAM IV 500 MG in DEXTROSE 5% 100ML 100 ML IV ONE (15:00)
--- NOTE | 2016-07-12 16:38 | DIAGNOSTIC IMAGING REPORT ---
KUB CLINICAL HISTORY: Generalized abdominal pain. FINDINGS: An AP, portable, supine abdominal radiograph is correlated with abdominal CT dated 07/03/2016. There is a nonobstructed abdominal bowel gas pattern. No evidence of intraperitoneal free air is seen on this supine view. Numerous phleboliths are observed in the pelvis. There is advanced atherosclerotic calcification of the abdominal vasculature. The skeletal structures are osteopenic. Moderate lumbosacral spondylosis is observed. IMPRESSION: Nonobstructed abdominal bowel gas pattern. Electronically signed by: Derrek Magallon M.D. 07/12/2016 4:36 PM Dictated Date/Time: 07/12/2016 4:36 PM
[2016-07-12] MEDS: METOPROLOL SUCC 50MG EXT REL TAB PO SCH (20:47)
[2016-07-12] MEDS: LEVETIRACETAM IV 500 MG in DEXTROSE 5% 100ML 100 ML IV SCH (22:09)
[2016-07-12] MEDS: PIPERACILL/TAZOBAC IV 4.5 GM in DEXTROSE 5% 100ML IV SCH (22:09)
--- NOTE | 2016-07-12 22:16 | DIAGNOSTIC IMAGING REPORT ---
MRI OF THE BRAIN WITHOUT IV CONTRAST CLINICAL HISTORY: Change in mental status. COMPARISON STUDY: CT of the brain dated 07/12/2016. TECHNIQUE: MRI of the brain was performed utilizing various T1 and T2-weighted sequences in the axial, sagittal, and coronal planes. IV contrast was not administered for this examination. FINDINGS: Brain parenchyma: There are age-related involutional changes noting advanced subcortical and periventricular microangiopathic disease. Chronic lacunar infarcts are identified within the right cerebellar hemisphere, the minesh, the right thalamus, the basal ganglia, and the left caudate head. There is a punctate focus of restricted diffusion identified in the high left parietal cortex. This suggests a tiny acute to subacute infarct. No additional foci of acute ischemia are suspected. There is no hemorrhage or mass effect. No extra-axial fluid collection is seen. The cerebellar tonsils are normal in configuration. Ventricles, sulci, and cisterns: Prominent secondary to involutional change. Pituitary and sella: Unremarkable. Intracranial vasculature: Normal flow voids are maintained at the skull base. Orbits: The bony orbits are grossly intact. Orbital contents are normal in appearance. Sinuses and mastoids: Findings suggest previous. Nasal sinus surgery. The paranasal sinuses and the mastoid air cells are clear. Calvarium: Unremarkable. Cervical cord: Partially visualized cervical spinal cord is normal in morphology and signal intensity. IMPRESSION: 1. There is a punctate acute to subacute cortical infarct identified in the high left parietal lobe. 2. No additional foci of acute ischemia are identified. There is no hemorrhage or mass effect. 3. Senescent changes and multiple chronic infarcts as above. Electronically signed by: Derrek Magallon M.D. 07/12/2016 10:14 PM Dictated Date/Time: 07/12/2016 10:10 PM
--- NOTE | 2016-07-12 23:15 | Progress Note ---
Internal Med Progress Note Date of Service: Jul 12, 2016. Provider Documentation: Made aware by RN of abnormal MRI results : subacute to acute infarct, L parietal EMR notes and records of previous admissions reviewed. AP Recurrent CVA likely embiolic w/ hx AF coumadin contraindicated w hx ICH resume low dose dose ASA for stroke prevention as per Neurology recommendations from recent confinement. Will relay to AM provider. Vital Signs: Date Time Temp Pulse Resp B/P Pulse Ox O2 Delivery O2 Flow Rate FiO2 07/13/16 07:42 36.4 90 20 150/78 99 5.0 07/13/16 07:25 90 16 99 Nasal Cannula 5.0 07/13/16 04:58 93 16 95 Nasal Cannula 5.0 07/13/16 04:13 36.5 89 22 154/83 92 Nasal Cannula 5.0 07/13/16 04:00 92 Nasal Cannula 5.0 Humidified Oxygen 07/13/16 00:00 36.4 88 22 162/90 92 Nasal Cannula 5.0 07/12/16 23:59 92 Nasal Cannula 5.0 Humidified Oxygen 07/12/16 20:00 92 Nasal Cannula 5.0 Humidified Oxygen 07/12/16 19:30 94 18 94 Nasal Cannula 5.0 07/12/16 19:09 36.3 118 24 146/97 92 Nasal Cannula 5.0 Humidified Oxygen 07/12/16 16:00 Nasal Cannula 4.0 Humidified Oxygen 07/12/16 15:48 36.3 124 22 155/79 96 Nasal Cannula 5.0 Humidified Oxygen 07/12/16 15:35 93 14 94 Nasal Cannula 5.0 07/12/16 12:00 Nasal Cannula 4.0 Humidified Oxygen 07/12/16 11:14 36.6 100 18 138/94 99 5.0 07/12/16 11:06 100 14 94 Nasal Cannula 5.0 Lab Results: Results Past 24 Hours Test 07/12/16 11:18 07/12/16 12:08 07/12/16 12:45 07/12/16 15:56 Range/Units Bedside Glucose 162 118 105 70-90 mg/dl Arterial Blood pH 7.38 7.35-7.45 Arterial Blood Partial Pressure CO2 44 35-46 mmHg Arterial Blood Partial Pressure O2 84 80-95 mm/Hg Arterial Blood HCO3 26 19-24 mmol/L Arterial Blood Oxygen Saturation 96.4 90-95 % Arterial Blood Base Excess 0.2 -9-1.8 mEq/L Arterial Blood Gas Delivery 5L Ethan Test POS POS Test 07/12/16 19:54 07/13/16 06:28 07/13/16 09:03 Range/Units Bedside Glucose 97 128 70-90 mg/dl Sodium Level 137 136-145 mmol/L Potassium Level 4.4 3.5-5.1 mmol/L Chloride Level 102 98-107 mmol/L Carbon Dioxide Level 21 21-32 mmol/L Anion Gap 14.0 3-11 mmol/L Blood Urea Nitrogen 89 7-18 mg/dl Creatinine 5.90 0.60-1.20 mg/dl Est Creatinine Clear Calc Drug Dose 9.5 ml/min Estimated GFR () 7.6 Estimated GFR (Non- 6.6 BUN/Creatinine Ratio 15.0 10-20 Random Glucose 150 70-99 mg/dl Calcium Level 8.4 8.5-10.1 mg/dl
[2016-07-12] MEDS ORDERED: ASPIRIN 81 MG ECTAB PO STA (23:16)
[2016-07-13] VITALS (12 sets, daily range): BP systolic 146–162; BP diastolic 77–94; PULSE 85–130; TEMP 36.4–37; O2SAT 92–99
[2016-07-13] MEDS: ALBUT/IPRATROP 3MG/0.5MG NEB 3 ML VIAL INH SCH ×5 (04:58→19:11)
[2016-07-13] MEDS: INSULIN ASPART 100 UNITS/ML 3 ML PEN SC SCH ×4 (07:00→21:34)
[2016-07-13] MEDS ORDERED: HEPARIN SOD (PORCINE) 1000 UNIT/ML 10 ML VIAL IV SCH ×2 (08:00)
[2016-07-13] MEDS: ACETAMINOPHEN 325 MG TAB PO PRN (08:38)
[2016-07-13] MEDS: GUAIFENESIN 600 MG TABCR PO SCH ×2 (09:00→21:35)
[2016-07-13] MEDS: CLONIDINE HCL 0.1 MG TAB PO SCH ×2 (09:00→21:35)
--- NOTE | 2016-07-13 09:22 | Nephrology Progress Note ---
Nephrology Progress Note Date of Service: Jul 13, 2016. Subjective pt had altered MS /decreased responsiveness yesterday > we held off on HD; she had brain mri showing subacute v acute punctate parietal lesion. ?seizure - keppra redosed. more alert today. denies musculoskeletal or chest pain. no diarrhea/n/v. has half eaten brkfst in front of her but states she's hungry. breathing much better this am Objective Date Time Temp Pulse Resp B/P Pulse Ox O2 Delivery O2 Flow Rate FiO2 07/13/16 07:42 36.4 90 20 150/78 99 5.0 07/13/16 07:25 90 16 99 Nasal Cannula 5.0 07/13/16 04:58 93 16 95 Nasal Cannula 5.0 07/13/16 04:13 36.5 89 22 154/83 92 Nasal Cannula 5.0 07/13/16 04:00 92 Nasal Cannula 5.0 Humidified Oxygen 07/13/16 00:00 36.4 88 22 162/90 92 Nasal Cannula 5.0 07/12/16 23:59 92 Nasal Cannula 5.0 Humidified Oxygen 07/12/16 20:00 92 Nasal Cannula 5.0 Humidified Oxygen 07/12/16 19:30 94 18 94 Nasal Cannula 5.0 07/12/16 19:09 36.3 118 24 146/97 92 Nasal Cannula 5.0 Humidified Oxygen 07/12/16 16:00 Nasal Cannula 4.0 Humidified Oxygen 07/12/16 15:48 36.3 124 22 155/79 96 Nasal Cannula 5.0 Humidified Oxygen 07/12/16 15:35 93 14 94 Nasal Cannula 5.0 07/12/16 12:00 Nasal Cannula 4.0 Humidified Oxygen 07/12/16 11:14 36.6 100 18 138/94 99 5.0 07/12/16 11:06 100 14 94 Nasal Cannula 5.0 Physical Exam: General-sitting up and intermittently dosing, arouseable; today no increased WOB ; no other distress; oriented to self and place Eyes-no scleral icterus ENT-dry mm Neck-supple Lungs-diminished air entry but clear Heart-irregular Abdomen-bs+ s/nt/nd, +ventral hernia, grove w/ ample urine Extremities-no edema Neuro-schmidt, limited speech/ ineraction but not overtly confused / tired Current Inpatient Medications Medications (Trade) Dose Ordered Sig/Nydia Route Start Time Stop Time Status Last Admin Dose Admin Nifedipine (Procardia Xl Tab) 90 mg QAM PO 07/05/16 09:00 08/04/16 08:59 07/12/16 09:17 90 MG Acetaminophen (Tylenol Tab) 650 mg Q4H PRN PO 07/04/16 02:15 08/03/16 02:14 07/13/16 08:38 650 MG Nitroglycerin (Nitrostat Tab) 0.4 mg UD PRN SL 07/04/16 02:15 08/03/16 02:14 Allopurinol (Zyloprim Tab) 450 mg DAILY PO 07/04/16 09:00 08/03/16 08:59 07/12/16 09:18 450 MG Famotidine (Pepcid Tab) 20 mg DAILY PO 07/04/16 09:00 08/03/16 08:59 07/12/16 09:18 20 MG Levetiracetam (Keppra Tab) 500 mg BID PO 07/04/16 09:00 08/03/16 08:59 Future Hold 07/09/16 20:47 500 MG Metoprolol Succinate (Toprol Xl Tab) 125 mg HS PO 07/04/16 21:00 08/03/16 20:59 07/12/16 20:47 125 MG Tiotropium [place] (Spiriva Handihaler Inhaler) 1 puff DAILY INH 07/04/16 09:00 08/03/16 08:59 07/12/16 09:11 1 PUFF Polyethylene (Miralax Powder Packet) 17 gm DAILY PRN PO 07/04/16 02:15 08/03/16 02:14 Clonidine HCl (Catapres Tab) 0.3 mg BID PO 07/04/16 09:00 08/03/16 08:59 07/12/16 20:46 0.3 MG Insulin Aspart (novoLOG ASPART) SLIDING SCALE If C... ACHS SC 07/04/16 07:00 08/03/16 06:59 07/11/16 08:20 1 UNITS Glucose (Glucose 40% Gel) 15-30 GRAMS 15 GRAMS... UD PRN PO 07/04/16 04:45 08/03/16 04:44 Glucose (Glucose Chew Tab) 4-8 Tablets 4 Tabl... UD PRN PO 07/04/16 04:45 08/03/16 04:44 Dextrose (Dextrose 50% 50ML Syringe) 25-50ML OF 50% DW IV FOR... UD PRN IV 07/04/16 04:45 08/03/16 04:44 Glucagon (Glucagon Inj) 1 mg UD PRN SQ 07/04/16 04:45 08/03/16 04:44 Tramadol HCl (Ultram Tab) FOR PAIN 25-50 MG 25 MG ... Q8H PRN PO 07/04/16 05:00 08/03/16 04:59 07/04/16 08:22 50 MG Hydralazine HCl (HydrALAZINE INJ) 10 mg Q6 PRN IV. 07/04/16 12:15 08/03/16 12:14 Bisacodyl (Dulcolax Tab) 5 mg BID PRN PO 07/05/16 11:30 08/04/16 11:29 Docusate Sodium (coLACE CAP) 100 mg BID PRN PO 07/05/16 21:00 08/04/16 20:59 07/07/16 08:27 100 MG Albuterol/ Ipratropium (Duoneb) 3 ml QIDR INH 07/08/16 16:00 08/07/16 15:59 07/13/16 07:44 3 ML Albuterol/ Ipratropium (Duoneb) 3 ml Q2H PRN INH 07/08/16 13:30 08/07/16 13:29 Metoprolol Tartrate (Lopressor Iv) 5 mg Q6 PRN IV 07/11/16 18:00 08/10/16 17:59 Guaifenesin (Mucinex Contr Rel Tab) 600 mg Q12 PO 07/11/16 21:00 08/10/16 20:59 07/12/16 20:47 600 MG Guaifenesin (Robitussin Sugar Free Syrup) 100 mg Q6H PRN PO 07/11/16 15:00 08/10/16 14:59 Heparin Sodium (Porcine) (Heparin Iv Bolus) 400 unit Q1H IV 07/13/16 08:00 07/13/16 10:01 Piperacillin Sod/ Tazobactam Sod 1 ea 1 ea UD PRN N/A 07/12/16 12:15 08/11/16 12:14 Piperacillin Sod/ Tazobactam Sod 4.5 gm/Dextrose 120 ml @ 30 mls/hr Q12H IV 07/12/16 22:00 07/19/16 21:59 07/12/16 22:09 30 MLS/HR Levetiracetam/ Dextrose (Keppra Iv/D5 100ml) 105 ml @ 420 mls/hr Q12 IV 07/12/16 23:00 08/11/16 22:59 07/12/16 22:09 420 MLS/HR Aspirin (Ecotrin Tab) 81 mg QAM PO 07/13/16 09:00 08/12/16 08:59 Last 24 Hours Test 07/12/16 11:18 07/12/16 12:08 07/12/16 12:45 07/12/16 15:56 Bedside Glucose 162 mg/dl 118 mg/dl 105 mg/dl Arterial Blood pH 7.38 Arterial Blood Partial Pressure CO2 44 mmHg Arterial Blood Partial Pressure O2 84 mm/Hg Arterial Blood HCO3 26 mmol/L Arterial Blood Oxygen Saturation 96.4 % Arterial Blood Base Excess 0.2 mEq/L Arterial Blood Gas Delivery 5L Ethan Test POS Test 07/12/16 19:54 07/13/16 06:28 07/13/16 09:03 Bedside Glucose 97 mg/dl 128 mg/dl Assessment & Plan 70 yo female with hypertensive urgency and milly on ckd stage 4 with atn which has required dialysis and also w/ delirium. urine output cont to increase which is heartening; despite this and significant fluid removal yesterday her breathing is worse today. creatinine also trending up without dialysis. MILLY/ATN-although urinating, still requires dialysis. will wait for bmp and confer w/ hospitalist >> my instinct at this point is to hold of on HD unless she suddenly worsens but will see what labs show. still on 5L nc but seems compensated currently. plan on dialysis likely tomorrow to help optimize electrolytes and continue to improve respiratory status. hopefully improves with time. she did have 1L Uop yesterday which is promising in terms of future renal recovery but do believe she will need further txs w/ HD Dyspnea/wheezing/plm edema on XR >> improved today and will hold on HD for now Appreciate consult; will follow with you.
[2016-07-13 09:39] LABS: CALCIUM 8.4 mg/dl (8.5-10.1); CREATININE 5.9 mg/dl (0.60-1.20); POTASSIUM 4.4 mmol/L (3.5-5.1)
--- NOTE | 2016-07-13 11:04 | Progress Note ---
Medicine Progress Note Date & Time of Visit: Jul 13, 2016 at 11:01. Subjective patient states she feels tired today no recurrence of unresponsive episode denies dyspnea, cough, chest pain appetite poor denies other symptoms Objective Last 8 Hrs Date Time Temp Pulse Resp B/P Pulse Ox O2 Delivery O2 Flow Rate FiO2 07/13/16 07:42 36.4 90 20 150/78 99 5.0 07/13/16 07:25 90 16 99 Nasal Cannula 5.0 07/13/16 04:58 93 16 95 Nasal Cannula 5.0 07/13/16 04:13 36.5 89 22 154/83 92 Nasal Cannula 5.0 07/13/16 04:00 92 Nasal Cannula 5.0 Humidified Oxygen Physical Exam: General- oriented x 2, not in distress Eyes- anicteric Neck- no JVD Lungs- clear breath sounds bilaterally, no rales/wheezes Heart- normal rate, irregularly irregular rhythm; no murmurs Abdomen- normal bowel sounds, soft, nontender Extremities- no pretibial edema, no calf tenderness Neuro- alert, oriented x 2;no gross focal deficits Skin- warm & dry Laboratory Results: Last 24 Hours Test 07/12/16 11:18 07/12/16 12:08 07/12/16 12:45 07/12/16 15:56 Bedside Glucose 162 mg/dl 118 mg/dl 105 mg/dl Arterial Blood pH 7.38 Arterial Blood Partial Pressure CO2 44 mmHg Arterial Blood Partial Pressure O2 84 mm/Hg Arterial Blood HCO3 26 mmol/L Arterial Blood Oxygen Saturation 96.4 % Arterial Blood Base Excess 0.2 mEq/L Arterial Blood Gas Delivery 5L Ethan Test POS Test 07/12/16 19:54 07/13/16 06:28 07/13/16 09:03 Bedside Glucose 97 mg/dl 128 mg/dl Sodium Level 137 mmol/L Potassium Level 4.4 mmol/L Chloride Level 102 mmol/L Carbon Dioxide Level 21 mmol/L Anion Gap 14.0 mmol/L Blood Urea Nitrogen 89 mg/dl Creatinine 5.90 mg/dl Est Creatinine Clear Calc Drug Dose 9.5 ml/min Estimated GFR () 7.6 Estimated GFR (Non- 6.6 BUN/Creatinine Ratio 15.0 Random Glucose 150 mg/dl Calcium Level 8.4 mg/dl Chemistry Specimen Hemolysis Assessment & Plan 70 year old female with history of CAD s/p Stent, A fib off anticoagulation, CHF Diastolic Type, Recurrent CVA, Cerebellar Hemorrhage, DM, HTN, presenting with nausea/vomiting x few days. MILLY ON CKD-III -Likely volume depletion secondary to nausea/vomiting in setting of chronic lasix use -Baseline creatinine around 1.8, presented with 4.0 --> 5.60-->6.60 and thus started on dialysis on 07/06/16 -Started on dialysis on 07/06/16 - After 2 sessions, started with fluid removal on 07/08/16 - Nephro on board - euvolemic today possible HD tomorrow ACUTE HYPOXIC RESPIRATORY FAILURE from CHF? in the setting ESRD r/o Aspiration Pneumonia Pleural Effusion R>L - remains on 5 liters continue to wean off - for HD tomorrow - speech therapy eval to r/o aspiration Zosyn IV, Day 2 -Duonebs QID - may need CT chest if with no improvement EPISODES OF UNRESPONSIVENESS possible breakthrough seizures Keppra held 07/11 noted to be unresponsive to any stimuli 07/12/16 CT head: negative Brain MRI: (+) acute subacute infarct left parietal lobe - Keppra 500mg IV resumed - Aspirin resumed HX OF RECURRENT CVA SEIZURE (Recent ICH, Hx of cerebral amyloid angiopathy as per records, Cerebellar infarct per recent CT scan last admission) This admission- stable small hemorrhage old with no new changes Brain MRI: (+) acute subacute infarct left parietal lobe - Keppra 500mg IV resumed - Aspirin resumed - Neurology consulted HYPERTENSIVE URGENCY Secondary to not taking meds due to nausea/vomiting. -Continue with Clonidine 0.3 mg BID, Nifedipine 90 mg daily, Metoprolol 125 mg ( home meds), IV Hydralazine PRN. Held lasix--> on dialysis -Monitor DELIRIUM =Resolved from Dysequilibrium syndrome ? with initiation of dialysis. -CT head repeat- No change, stable hemorrhage, ABGs-reviewed- respiratory alkalosis, CXR- congestion + UTI-E COLI UA +VE, CT - left perinephric stranding. -Urine c/S- E coli -S/P IV Rocephin (Day 3)--> Ciprofloxacin BID (Day 11/04) S/P NAUSEA/VOMITING - Resolved Possibly acute gastroenteritis vs related to UTI/Possible pyelo with ? left perinephric stranding on ct scan ? No diarrhea per patient, constipation + no BM for few days. C diff still pending collection CAD S/P STENTING -Stable CHRONIC DIASTOLIC CHF- -Per recent Echo EF of 50-55%. - lasix on hold -Now on dialysis ATRIAL FIBRILLATION - on Metoprolol - Aspirin resumed - anticoagulation held due to recent IC bleed DEPRESSION, MILD - Depressed due to personal stressors. -Psychiatry consult placed- appreciate inputs. No medications recommended at this time COPD as per records -Stable with no signs of exacerbation -Monitor DM2, well controlled as of recent HgA1c recent hba1c 5.9 -Not on meds -ISS, Accuchecks NUTRITION Mental status back to AAOX2 , thus taking PO DVT PROPHYLAXIS scds re: hemorrhage DISPOSITION pending Current Inpatient Medications: Current Inpatient Medications Medications (Trade) Dose Ordered Sig/Nydia Route Start Time Stop Time Status Last Admin Dose Admin Nifedipine (Procardia Xl Tab) 90 mg QAM PO 07/05/16 09:00 08/04/16 08:59 07/12/16 09:17 90 MG Acetaminophen (Tylenol Tab) 650 mg Q4H PRN PO 07/04/16 02:15 08/03/16 02:14 07/13/16 08:38 650 MG Nitroglycerin (Nitrostat Tab) 0.4 mg UD PRN SL 07/04/16 02:15 08/03/16 02:14 Allopurinol (Zyloprim Tab) 450 mg DAILY PO 07/04/16 09:00 08/03/16 08:59 07/12/16 09:18 450 MG Famotidine (Pepcid Tab) 20 mg DAILY PO 07/04/16 09:00 08/03/16 08:59 07/12/16 09:18 20 MG Levetiracetam (Keppra Tab) 500 mg BID PO 07/04/16 09:00 08/03/16 08:59 Future Hold 07/09/16 20:47 500 MG Metoprolol Succinate (Toprol Xl Tab) 125 mg HS PO 07/04/16 21:00 08/03/16 20:59 07/12/16 20:47 125 MG Tiotropium [place] (Spiriva Handihaler Inhaler) 1 puff DAILY INH 07/04/16 09:00 08/03/16 08:59 07/12/16 09:11 1 PUFF Polyethylene (Miralax Powder Packet) 17 gm DAILY PRN PO 07/04/16 02:15 08/03/16 02:14 Clonidine HCl (Catapres Tab) 0.3 mg BID PO 07/04/16 09:00 08/03/16 08:59 07/12/16 20:46 0.3 MG Insulin Aspart (novoLOG ASPART) SLIDING SCALE If C... ACHS SC 07/04/16 07:00 08/03/16 06:59 07/11/16 08:20 1 UNITS Glucose (Glucose 40% Gel) 15-30 GRAMS 15 GRAMS... UD PRN PO 07/04/16 04:45 08/03/16 04:44 Glucose (Glucose Chew Tab) 4-8 Tablets 4 Tabl... UD PRN PO 07/04/16 04:45 08/03/16 04:44 Dextrose (Dextrose 50% 50ML Syringe) 25-50ML OF 50% DW IV FOR... UD PRN IV 07/04/16 04:45 08/03/16 04:44 Glucagon (Glucagon Inj) 1 mg UD PRN SQ 07/04/16 04:45 08/03/16 04:44 Tramadol HCl (Ultram Tab) FOR PAIN 25-50 MG 25 MG ... Q8H PRN PO 07/04/16 05:00 08/03/16 04:59 07/04/16 08:22 50 MG Hydralazine HCl (HydrALAZINE INJ) 10 mg Q6 PRN IV. 07/04/16 12:15 08/03/16 12:14 Bisacodyl (Dulcolax Tab) 5 mg BID PRN PO 07/05/16 11:30 08/04/16 11:29 Docusate Sodium (coLACE CAP) 100 mg BID PRN PO 07/05/16 21:00 08/04/16 20:59 07/07/16 08:27 100 MG Albuterol/ Ipratropium (Duoneb) 3 ml QIDR INH 07/08/16 16:00 08/07/16 15:59 07/13/16 07:44 3 ML Albuterol/ Ipratropium (Duoneb) 3 ml Q2H PRN INH 07/08/16 13:30 08/07/16 13:29 Metoprolol Tartrate (Lopressor Iv) 5 mg Q6 PRN IV 07/11/16 18:00 08/10/16 17:59 Guaifenesin (Mucinex Contr Rel Tab) 600 mg Q12 PO 07/11/16 21:00 08/10/16 20:59 07/12/16 20:47 600 MG Guaifenesin (Robitussin Sugar Free Syrup) 100 mg Q6H PRN PO 07/11/16 15:00 08/10/16 14:59 Piperacillin Sod/ Tazobactam Sod 1 ea 1 ea UD PRN N/A 07/12/16 12:15 08/11/16 12:14 Piperacillin Sod/ Tazobactam Sod 4.5 gm/Dextrose 120 ml @ 30 mls/hr Q12H IV 07/12/16 22:00 07/19/16 21:59 07/12/16 22:09 30 MLS/HR Levetiracetam/ Dextrose (Keppra Iv/D5 100ml) 105 ml @ 420 mls/hr Q12 IV 07/12/16 23:00 08/11/16 22:59 07/12/16 22:09 420 MLS/HR Aspirin (Ecotrin Tab) 81 mg QAM PO 07/13/16 09:00 08/12/16 08:59
[2016-07-13] MEDS: TIOTROPIUM BROMIDE 5 PUFF/90 MCG INH INH SCH (12:26)
[2016-07-13] MEDS: ASPIRIN 81 MG ECTAB PO SCH (18:36)
[2016-07-13] MEDS: FAMOTIDINE 20 MG TAB PO SCH (18:36)
[2016-07-13] MEDS: LEVETIRACETAM IV 500 MG in DEXTROSE 5% 100ML 100 ML IV SCH ×2 (18:36→21:35)
[2016-07-13] MEDS: NIFEdipine 30 MG CR TAB PO SCH (18:37)
[2016-07-13] MEDS: ALLOPURINOL 300 MG TAB PO SCH (18:37)
[2016-07-13] MEDS: BOOST BREEZE NUTRITION DRINK 1 BOX PO SCH (18:38)
[2016-07-13] MEDS: PIPERACILL/TAZOBAC IV 4.5 GM in DEXTROSE 5% 100ML IV SCH ×2 (18:38→21:36)
[2016-07-13] MEDS: METOPROLOL SUCC 50MG EXT REL TAB PO SCH (21:36)
[2016-07-14] VITALS (25 sets, daily range): BP systolic 145–183; BP diastolic 68–104; PULSE 69–111; TEMP 36.5–36.8; O2SAT 92–98
[2016-07-14] MEDS: INSULIN ASPART 100 UNITS/ML 3 ML PEN SC SCH ×4 (07:00→20:43)
[2016-07-14] MEDS: ALBUT/IPRATROP 3MG/0.5MG NEB 3 ML VIAL INH SCH ×4 (07:18→19:36)
[2016-07-14] MEDS: BOOST BREEZE NUTRITION DRINK 1 BOX PO SCH ×2 (07:44→18:32)
[2016-07-14] MEDS ORDERED: HEPARIN SOD (PORCINE) 1000 UNIT/ML 10 ML VIAL IV SCH (08:00)
[2016-07-14 08:12] LABS: BASO % 0.4 %; BASO ABS # 0.04 K/uL (0-0.2); COMPLETE YES; EOS % 1.9 %; HEMATOCRIT 39.6 % (37-47); IG% 0.9 %; LYMPH % 10.9 %; LYMPH ABS # 1.17 K/uL (1.2-3.4); MEAN CELL VOLUME 87.8 fL (80-100); MEAN CORPUSCULAR HGB CONC 35.4 g/dl (32-36); MEAN PLATELET VOLUME 10.7 fL (7.4-10.4); MONO % 5.9 %; PLATELET COUNT 177 K/uL (130-400); RED BLOOD COUNT 4.51 M/uL (4.2-5.4); WHITE BLOOD COUNT 10.74 K/uL (4.8-10.8)
[2016-07-14] MEDS: CLONIDINE HCL 0.1 MG TAB PO SCH ×2 (08:35→20:38)
[2016-07-14] MEDS: LEVETIRACETAM IV 500 MG in DEXTROSE 5% 100ML 100 ML IV SCH (08:35)
[2016-07-14] MEDS: GUAIFENESIN 600 MG TABCR PO SCH ×2 (08:36→20:39)
[2016-07-14] MEDS: TIOTROPIUM BROMIDE 5 PUFF/90 MCG INH INH SCH (08:39)
[2016-07-14 09:23] LABS: BUN/CREATININE RATIO 15.5 (10-20); CREATININE 6.5 mg/dl (0.60-1.20); POTASSIUM 3.9 mmol/L (3.5-5.1)
[2016-07-14] MEDS: ALLOPURINOL 300 MG TAB PO SCH (09:23)
[2016-07-14] MEDS: NIFEdipine 30 MG CR TAB PO SCH (09:23)
[2016-07-14] MEDS: ASPIRIN 81 MG ECTAB PO SCH (09:23)
[2016-07-14] MEDS: FAMOTIDINE 20 MG TAB PO SCH (09:23)
[2016-07-14] MEDS: PIPERACILL/TAZOBAC IV 4.5 GM in DEXTROSE 5% 100ML IV SCH ×2 (11:07→21:40)
--- NOTE | 2016-07-14 11:32 | ELECTROENCEPHALOGRAPH REPORT ---
REQUESTING PHYSICIAN: Dr. Jaylen Rudolph. CLINICAL DIAGNOSIS: Confusion, possible seizure disorder. EEG DIAGNOSIS: Mildly diffusely abnormal EEG during wakefulness. DESCRIPTION OF TRACING: This EEG was done as a bedside recording with simultaneous video analysis of patient movement and behavior. There is a fair amount of head rolling artifact and eye and facial movement artifacts throughout the recording, and at times this activity does seem to mimic sharp and slow wave activity, but on close video analysis, these events correlate more with the underlying movements than anything of cortical origin. Between these events, the background rhythm is in the upper theta range at 7 Hz of maximum frequency and 30 microvolts of maximum amplitude, is maximum posterior head regions and bilaterally symmetrical. Over the central regions, theta activity shifts into slightly slower frequencies, is intermixed with occasional waveforms of moderate voltage in the delta range, but is symmetrical and nonfocal. Beta activity is present bifrontally. No activation procedures were utilized. Drowsiness and light sleep may emerge toward the end of the recording during which the background rhythm slips even further into the theta range and there is a little more synchronous slope of activity but fully developed stages of sleep never developed and no abnormal activations occur during these intervals. INTERPRETATION: This EEG is mildly diffusely abnormal in a highly nonspecific fashion correlating with the presence of a generalized nonfocal encephalopathy. There are no unequivocal periods of time during which potentially epileptogenic activity is seen. The eye blinking and facial movement artifacts, however, at times do mimic this behavior, but again on video analysis, these seem to be more of myogenic origin than cerebral cortical origin.
--- NOTE | 2016-07-14 15:30 | Dialysis Progress Note ---
Nephrology Dialysis Note Date of Service: Jul 14, 2016. Subjective 70 yo female with hypertensive urgency and reese on ckd stage 4 with atn which has required dialysis and also w/ delirium. Patient is seen while on dialysis. States that SOB is stable on O2. arousable but unable to state what day of the week it is or where she is. She does know that it is June. She denies any chest pain, nausea, abdominal pain, or cramping. blood flow/access working ok. BP appropriate. edema greatly improved. Appetite poor per patient. continues to be weak overall. Objective Date Time Temp Pulse Resp B/P Pulse Ox O2 Delivery O2 Flow Rate FiO2 07/14/16 13:13 Room Air 07/14/16 11:16 92 16 93 Nasal Cannula 3.0 07/14/16 11:02 36.6 99 18 161/93 98 Room Air 07/14/16 08:00 98 Nasal Cannula 3.0 07/14/16 07:45 36.5 89 18 165/104 98 3.0 07/14/16 07:18 95 16 96 Nasal Cannula 3.0 07/14/16 04:06 36.7 98 18 158/87 92 Nasal Cannula 2.0 07/14/16 04:00 Nasal Cannula 2.0 07/14/16 00:15 36.8 111 20 155/93 92 Nasal Cannula 3.0 07/14/16 00:00 Nasal Cannula 2.0 07/13/16 20:50 Nasal Cannula 4.0 07/13/16 20:44 37.0 130 18 146/94 95 Nasal Cannula 3.0 07/13/16 19:11 93 16 93 Nasal Cannula 3.0 07/13/16 16:00 Nasal Cannula 4.0 07/13/16 15:34 116 16 99 Nasal Cannula 3.0 07/13/16 15:32 36.8 116 18 159/77 99 Nasal Cannula 3.0 Humidified Oxygen Physical Exam: General-sitting up and intermittently dosing, arousable; today no increased SOB ; no other distress; oriented to self and place Eyes-no scleral icterus ENT-dry mm Neck-supple Lungs-diminished air entry but clear Heart-irregular Abdomen-bs+ s/nt/nd, +ventral hernia, grove w/ ample urine Extremities-no edema Neuro-kathy, limited speech/ interaction but not overtly confused / tired Current Inpatient Medications Medications (Trade) Dose Ordered Sig/Nydia Route Start Time Stop Time Status Last Admin Dose Admin Nifedipine (Procardia Xl Tab) 90 mg QAM PO 07/05/16 09:00 08/04/16 08:59 07/14/16 09:23 90 MG Acetaminophen (Tylenol Tab) 650 mg Q4H PRN PO 07/04/16 02:15 08/03/16 02:14 07/13/16 08:38 650 MG Nitroglycerin (Nitrostat Tab) 0.4 mg UD PRN SL 07/04/16 02:15 08/03/16 02:14 Allopurinol (Zyloprim Tab) 450 mg DAILY PO 07/04/16 09:00 08/03/16 08:59 07/14/16 09:23 450 MG Famotidine (Pepcid Tab) 20 mg DAILY PO 07/04/16 09:00 08/03/16 08:59 07/14/16 09:23 20 MG Levetiracetam (Keppra Tab) 500 mg BID PO 07/04/16 09:00 08/03/16 08:59 Future Hold 07/09/16 20:47 500 MG Metoprolol Succinate (Toprol Xl Tab) 125 mg HS PO 07/04/16 21:00 08/03/16 20:59 07/13/16 21:36 125 MG Tiotropium [place] (Spiriva Handihaler Inhaler) 1 puff DAILY INH 07/04/16 09:00 08/03/16 08:59 07/14/16 08:39 1 PUFF Polyethylene (Miralax Powder Packet) 17 gm DAILY PRN PO 07/04/16 02:15 08/03/16 02:14 Clonidine HCl (Catapres Tab) 0.3 mg BID PO 07/04/16 09:00 08/03/16 08:59 07/14/16 08:35 0.3 MG Insulin Aspart (novoLOG ASPART) SLIDING SCALE If C... ACHS SC 07/04/16 07:00 08/03/16 06:59 07/11/16 08:20 1 UNITS Glucose (Glucose 40% Gel) 15-30 GRAMS 15 GRAMS... UD PRN PO 07/04/16 04:45 08/03/16 04:44 Glucose (Glucose Chew Tab) 4-8 Tablets 4 Tabl... UD PRN PO 07/04/16 04:45 08/03/16 04:44 Dextrose (Dextrose 50% 50ML Syringe) 25-50ML OF 50% DW IV FOR... UD PRN IV 07/04/16 04:45 08/03/16 04:44 Glucagon (Glucagon Inj) 1 mg UD PRN SQ 07/04/16 04:45 08/03/16 04:44 Hydralazine HCl (HydrALAZINE INJ) 10 mg Q6 PRN IV. 07/04/16 12:15 08/03/16 12:14 Bisacodyl (Dulcolax Tab) 5 mg BID PRN PO 07/05/16 11:30 08/04/16 11:29 Docusate Sodium (coLACE CAP) 100 mg BID PRN PO 07/05/16 21:00 08/04/16 20:59 07/07/16 08:27 100 MG Albuterol/ Ipratropium (Duoneb) 3 ml QIDR INH 07/08/16 16:00 08/07/16 15:59 07/14/16 11:16 3 ML Albuterol/ Ipratropium (Duoneb) 3 ml Q2H PRN INH 07/08/16 13:30 08/07/16 13:29 Metoprolol Tartrate (Lopressor Iv) 5 mg Q6 PRN IV 07/11/16 18:00 08/10/16 17:59 Guaifenesin (Mucinex Contr Rel Tab) 600 mg Q12 PO 07/11/16 21:00 08/10/16 20:59 07/14/16 08:36 600 MG Guaifenesin (Robitussin Sugar Free Syrup) 100 mg Q6H PRN PO 07/11/16 15:00 08/10/16 14:59 07/13/16 12:26 100 MG Piperacillin Sod/ Tazobactam Sod 1 ea 1 ea UD PRN N/A 07/12/16 12:15 08/11/16 12:14 Piperacillin Sod/ Tazobactam Sod 4.5 gm/Dextrose 120 ml @ 30 mls/hr Q12H IV 07/12/16 22:00 07/19/16 21:59 07/14/16 11:07 30 MLS/HR Levetiracetam/ Dextrose (Keppra Iv/D5 100ml) 105 ml @ 420 mls/hr Q12 IV 07/12/16 23:00 08/11/16 22:59 07/14/16 08:35 420 MLS/HR Aspirin (Ecotrin Tab) 81 mg QAM PO 07/13/16 09:00 08/12/16 08:59 07/14/16 09:23 81 MG Enteral Nutritional Formula (Boost Breeze Nutritional Drink) 1 box BIDM PO 07/13/16 16:45 08/12/16 16:44 07/14/16 07:44 1 BOX Heparin Sodium (Porcine) (Heparin Iv Bolus) 1,000 unit TODAY@0800 IV 07/14/16 08:00 07/14/16 23:59 Heparin Sodium (Porcine) (Heparin Iv Bolus) 400 unit TODAY@0800,0900,1000 IV 07/14/16 08:00 07/14/16 23:59 Last 24 Hours Test 07/13/16 16:06 07/13/16 20:13 07/14/16 06:40 07/14/16 07:45 Bedside Glucose 111 mg/dl 122 mg/dl 122 mg/dl White Blood Count 10.74 K/uL Red Blood Count 4.51 M/uL Hemoglobin 14.0 g/dL Hematocrit 39.6 % Mean Corpuscular Volume 87.8 fL Mean Corpuscular Hemoglobin 31.0 pg Mean Corpuscular Hemoglobin Concent 35.4 g/dl Platelet Count 177 K/uL Mean Platelet Volume 10.7 fL Neutrophils (%) (Auto) 80.0 % Lymphocytes (%) (Auto) 10.9 % Monocytes (%) (Auto) 5.9 % Eosinophils (%) (Auto) 1.9 % Basophils (%) (Auto) 0.4 % Neutrophils # (Auto) 8.60 K/uL Lymphocytes # (Auto) 1.17 K/uL Monocytes # (Auto) 0.63 K/uL Eosinophils # (Auto) 0.20 K/uL Basophils # (Auto) 0.04 K/uL RDW Standard Deviation 44.9 fL RDW Coefficient of Variation 14.0 % Immature Granulocyte % (Auto) 0.9 % Immature Granulocyte # (Auto) 0.10 K/uL Sodium Level 138 mmol/L Potassium Level 3.9 mmol/L Chloride Level 99 mmol/L Carbon Dioxide Level 24 mmol/L Anion Gap 15.0 mmol/L Blood Urea Nitrogen 101 mg/dl Creatinine 6.50 mg/dl Est Creatinine Clear Calc Drug Dose 8.7 ml/min Estimated GFR () 6.8 Estimated GFR (Non- 5.9 BUN/Creatinine Ratio 15.5 Random Glucose 132 mg/dl Calcium Level 9.0 mg/dl Test 07/14/16 11:10 Bedside Glucose 157 mg/dl Other Studies: 07/12/16 07/13/16 07/14/16 08:00 08:00 08:00 Intake Total 250 ml 940 ml 984 ml Output Total 3425 ml 1150 ml 975 ml Balance -3175 ml -210 ml 9 ml Assessment & Plan 70 yo female with hypertensive urgency and reese on ckd stage 4 with atn which has required dialysis and also w/ delirium. urine output unchanged on average from the last two days. Patient was seen on dialysis today. states that SOB is unchanged today. will continue to follow creatinine and clinical condition and dialyze as condition dictates. Goal is to optimize electrolytes and respiratory status. Likely to require additional HD. Per neurology to continue keppra with supplemental dose 250-500 mg post dialysis for possible sz, brainstem ischemia, or hypoperfusion. appreciate their input. Dyspnea/wheezing: patient states that SOB is unchanged. on O2. no recent CXR. will continue to follow volume status. attempting 2L UF today to see if tolerated to improve volume status. This patient was seen and treated with direct collaboration with Dr. Lanza. Thank you for the opportunity to participate in this patient's care. Appreciate the Consult. ATTENDING NOTE: I performed a history and physical examination of the patient, including specifically on ROS-still weak, tired, lethargic, on physical exam on 2-3L 02 NC today and fewer wheezes, and my impression and plan are as per PA note; next HD tentatively for 07/16 but recheck need daily. I have discussed the patient's management with Anu Oliveros PA-C. Please refer to the above note for the documented findings and plan of care. Leeanne Lanza MD, PhD
[2016-07-14] MEDS: LEVETIRACETAM 500 MG TAB PO SCH ×2 (18:32→20:38)
--- NOTE | 2016-07-14 19:06 | Neurology Progress Notes ---
Neurology Progress Note Date of Service Jul 14, 2016. Kellee Mcdermott is a 70 year old female who has a PMH CAD sp stenting, COPD as per records, hypertension, history of recurrent CVA, AF, off anticoagulation because of recent intracranial hemorrhage, chronic renal insufficiency ( baseline creatinine of around 1.8), IBS as per records, DM2 diet controlled, cerebral amyloid angiopathy depression. She was admitted on . Previously she had confinement about 2 weeks ago for hypertensive urgency. She was discharged without anticoag or antiplatlet therapy due to a history of amyloid bleed. She had a repeat CT scan head per recommendations and aspirin was started. She was admitted for abdominal discomfort, not feeling well, menstrual cramp like sensation, nausea, no vomiting; diarrhea.She did not take her blood pressure pills because she felt sick. Her blood pressure at admission to ED was 229/124. Today she is in dialysis. She states she is doing ok. denies CP, SOB, abdominal pain, N, V, headache Objective Date Time Temp Pulse Resp B/P Pulse Ox O2 Delivery O2 Flow Rate FiO2 07/14/16 18:15 98 Nasal Cannula 3.0 07/14/16 17:15 100 162/71 07/14/16 17:00 98 145/69 07/14/16 17:00 102 161/79 07/14/16 16:45 110 148/96 07/14/16 16:30 101 164/76 07/14/16 16:15 76 152/87 07/14/16 16:00 77 172/101 07/14/16 15:45 69 183/96 07/14/16 15:30 84 177/102 07/14/16 15:15 77 168/84 07/14/16 15:00 76 171/81 07/14/16 14:45 89 159/84 07/14/16 14:30 77 175/68 07/14/16 14:25 36.5 96 165/83 07/14/16 13:13 Room Air 07/14/16 12:00 98 Nasal Cannula 3.0 07/14/16 11:16 92 16 93 Nasal Cannula 3.0 07/14/16 11:02 36.6 99 18 161/93 98 Room Air 07/14/16 08:00 98 Nasal Cannula 3.0 07/14/16 07:45 36.5 89 18 165/104 98 3.0 07/14/16 07:18 95 16 96 Nasal Cannula 3.0 07/14/16 04:06 36.7 98 18 158/87 92 Nasal Cannula 2.0 07/14/16 04:00 Nasal Cannula 2.0 07/14/16 00:15 36.8 111 20 155/93 92 Nasal Cannula 3.0 07/14/16 00:00 Nasal Cannula 2.0 07/13/16 20:50 Nasal Cannula 4.0 07/13/16 20:44 37.0 130 18 146/94 95 Nasal Cannula 3.0 07/13/16 19:11 93 16 93 Nasal Cannula 3.0 Last 24 Hours Test 07/13/16 20:13 07/14/16 06:40 07/14/16 07:45 07/14/16 11:10 Bedside Glucose 122 mg/dl 122 mg/dl 157 mg/dl White Blood Count 10.74 K/uL Red Blood Count 4.51 M/uL Hemoglobin 14.0 g/dL Hematocrit 39.6 % Mean Corpuscular Volume 87.8 fL Mean Corpuscular Hemoglobin 31.0 pg Mean Corpuscular Hemoglobin Concent 35.4 g/dl Platelet Count 177 K/uL Mean Platelet Volume 10.7 fL Neutrophils (%) (Auto) 80.0 % Lymphocytes (%) (Auto) 10.9 % Monocytes (%) (Auto) 5.9 % Eosinophils (%) (Auto) 1.9 % Basophils (%) (Auto) 0.4 % Neutrophils # (Auto) 8.60 K/uL Lymphocytes # (Auto) 1.17 K/uL Monocytes # (Auto) 0.63 K/uL Eosinophils # (Auto) 0.20 K/uL Basophils # (Auto) 0.04 K/uL RDW Standard Deviation 44.9 fL RDW Coefficient of Variation 14.0 % Immature Granulocyte % (Auto) 0.9 % Immature Granulocyte # (Auto) 0.10 K/uL Sodium Level 138 mmol/L Potassium Level 3.9 mmol/L Chloride Level 99 mmol/L Carbon Dioxide Level 24 mmol/L Anion Gap 15.0 mmol/L Blood Urea Nitrogen 101 mg/dl Creatinine 6.50 mg/dl Est Creatinine Clear Calc Drug Dose 8.7 ml/min Estimated GFR () 6.8 Estimated GFR (Non- 5.9 BUN/Creatinine Ratio 15.5 Random Glucose 132 mg/dl Calcium Level 9.0 mg/dl Imaging: : This EEG is mildly diffusely abnormal in a highly nonspecific fashion correlating with the presence of a generalized nonfocalencephalopathy. There are no unequivocal periods of time during which potentially epileptogenic activity is seen. The eye blinking and facial movement artifacts, however, at times do mimic this behavior, but again onvideo analysis, these seem to be more of myogenic origin than cerebral cortical origin. Exam: Gen: alert NAD lungs: coarse breath sounds CV irregular oriented to person place year smile and eye brow raise symmetric tongue midline full exam not done due to patient receiving dialysis exchange Current Inpatient Medications Medications (Trade) Dose Ordered Sig/Nydia Route Start Time Stop Time Status Last Admin Dose Admin Nifedipine (Procardia Xl Tab) 90 mg QAM PO 07/05/16 09:00 08/04/16 08:59 07/14/16 09:23 90 MG Acetaminophen (Tylenol Tab) 650 mg Q4H PRN PO 07/04/16 02:15 08/03/16 02:14 07/13/16 08:38 650 MG Nitroglycerin (Nitrostat Tab) 0.4 mg UD PRN SL 07/04/16 02:15 08/03/16 02:14 Allopurinol (Zyloprim Tab) 450 mg DAILY PO 07/04/16 09:00 08/03/16 08:59 07/14/16 09:23 450 MG Famotidine (Pepcid Tab) 20 mg DAILY PO 07/04/16 09:00 08/03/16 08:59 07/14/16 09:23 20 MG Metoprolol Succinate (Toprol Xl Tab) 125 mg HS PO 07/04/16 21:00 08/03/16 20:59 07/13/16 21:36 125 MG Tiotropium [place] (Spiriva Handihaler Inhaler) 1 puff DAILY INH 07/04/16 09:00 08/03/16 08:59 07/14/16 08:39 1 PUFF Polyethylene (Miralax Powder Packet) 17 gm DAILY PRN PO 07/04/16 02:15 08/03/16 02:14 Clonidine HCl (Catapres Tab) 0.3 mg BID PO 07/04/16 09:00 08/03/16 08:59 07/14/16 08:35 0.3 MG Insulin Aspart (novoLOG ASPART) SLIDING SCALE If C... ACHS SC 07/04/16 07:00 08/03/16 06:59 07/11/16 08:20 1 UNITS Glucose (Glucose 40% Gel) 15-30 GRAMS 15 GRAMS... UD PRN PO 07/04/16 04:45 08/03/16 04:44 Glucose (Glucose Chew Tab) 4-8 Tablets 4 Tabl... UD PRN PO 07/04/16 04:45 08/03/16 04:44 Dextrose (Dextrose 50% 50ML Syringe) 25-50ML OF 50% DW IV FOR... UD PRN IV 07/04/16 04:45 08/03/16 04:44 Glucagon (Glucagon Inj) 1 mg UD PRN SQ 07/04/16 04:45 08/03/16 04:44 Hydralazine HCl (HydrALAZINE INJ) 10 mg Q6 PRN IV. 07/04/16 12:15 08/03/16 12:14 Bisacodyl (Dulcolax Tab) 5 mg BID PRN PO 07/05/16 11:30 08/04/16 11:29 Docusate Sodium (coLACE CAP) 100 mg BID PRN PO 07/05/16 21:00 08/04/16 20:59 07/07/16 08:27 100 MG Albuterol/ Ipratropium (Duoneb) 3 ml QIDR INH 07/08/16 16:00 08/07/16 15:59 07/14/16 11:16 3 ML Albuterol/ Ipratropium (Duoneb) 3 ml Q2H PRN INH 07/08/16 13:30 08/07/16 13:29 Metoprolol Tartrate (Lopressor Iv) 5 mg Q6 PRN IV 07/11/16 18:00 08/10/16 17:59 Guaifenesin (Mucinex Contr Rel Tab) 600 mg Q12 PO 07/11/16 21:00 08/10/16 20:59 07/14/16 08:36 600 MG Guaifenesin (Robitussin Sugar Free Syrup) 100 mg Q6H PRN PO 07/11/16 15:00 08/10/16 14:59 07/13/16 12:26 100 MG Piperacillin Sod/ Tazobactam Sod 1 ea 1 ea UD PRN N/A 07/12/16 12:15 08/11/16 12:14 Piperacillin Sod/ Tazobactam Sod/ Dextrose (Zosyn Iv/D5 100ml) 120 ml @ 30 mls/hr Q12H IV 07/12/16 22:00 07/19/16 21:59 07/14/16 11:07 30 MLS/HR Aspirin (Ecotrin Tab) 81 mg QAM PO 07/13/16 09:00 08/12/16 08:59 07/14/16 09:23 81 MG Enteral Nutritional Formula (Boost Breeze Nutritional Drink) 1 box BIDM PO 07/13/16 16:45 08/12/16 16:44 07/14/16 18:32 1 BOX Heparin Sodium (Porcine) (Heparin Iv Bolus) 1,000 unit TODAY@0800 IV 07/14/16 08:00 07/14/16 23:59 Heparin Sodium (Porcine) (Heparin Iv Bolus) 400 unit TODAY@0800,0900,1000 IV 07/14/16 08:00 07/14/16 23:59 Levetiracetam (Keppra Tab) 1,000 mg HS PO 07/14/16 21:00 08/13/16 20:59 Levetiracetam (Keppra Tab) DAILY@1800 PO 07/14/16 18:00 08/13/16 17:59 07/14/16 18:32 500 MG Impression 70 year old female s/p unresponsive event with multiple complex medical issues Plan 1. MRI brain defines acute subacute and ongoing chronic infarcts 2. CT head calcified area of old hemorrhagic bleed 3. continue aspirin 81 mg daily 4. increase Keppra to 1 g hs and then 500 mg after each dialysis session 5. EEG no epileptic spikes 6. dialysis per nephrology M / W/ F 7. afib- not candidate for coumadin therapy due to fall risk and amyloid, prior hemorrhage I have seen and discussed above patient with Dr Saige Andrews, neurology Please change keppra dosing as advised in prior note with supplement on days of dialysis Follow-up with neurology post dc. Will sign off reconsult if new events, issues. DWAYNE Andrews MD
--- NOTE | 2016-07-14 19:09 | Progress Note ---
Medicine Progress Note Date & Time of Visit: Jul 14, 2016 at 19:03. Subjective seen sitting up in bed, appears weak but more alert appears comfortable states she feels fine overall breathing is improving, less cough no chest pain, dyspnea no other symptoms Objective Last 8 Hrs Date Time Temp Pulse Resp B/P Pulse Ox O2 Delivery O2 Flow Rate FiO2 07/14/16 18:15 98 Nasal Cannula 3.0 07/14/16 17:15 100 162/71 07/14/16 17:00 98 145/69 07/14/16 17:00 102 161/79 07/14/16 16:45 110 148/96 07/14/16 16:30 101 164/76 07/14/16 16:15 76 152/87 07/14/16 16:00 77 172/101 07/14/16 15:45 69 183/96 07/14/16 15:30 84 177/102 07/14/16 15:15 77 168/84 07/14/16 15:00 76 171/81 07/14/16 14:45 89 159/84 07/14/16 14:30 77 175/68 07/14/16 14:25 36.5 96 165/83 07/14/16 13:13 Room Air 07/14/16 12:00 98 Nasal Cannula 3.0 07/14/16 11:16 92 16 93 Nasal Cannula 3.0 Physical Exam: General- oriented x 2, not in distress Neck- no JVD Lungs- clear breath sounds bilaterally, no rales Heart- normal rate, irregularly irregular rhythm; no murmurs Abdomen- normal bowel sounds, soft, nontender Extremities- no pretibial edema, no calf tenderness Neuro- alert, oriented x 2;no gross focal deficits Skin- warm & dry Laboratory Results: Last 24 Hours Test 07/13/16 20:13 07/14/16 06:40 07/14/16 07:45 07/14/16 11:10 Bedside Glucose 122 mg/dl 122 mg/dl 157 mg/dl White Blood Count 10.74 K/uL Red Blood Count 4.51 M/uL Hemoglobin 14.0 g/dL Hematocrit 39.6 % Mean Corpuscular Volume 87.8 fL Mean Corpuscular Hemoglobin 31.0 pg Mean Corpuscular Hemoglobin Concent 35.4 g/dl Platelet Count 177 K/uL Mean Platelet Volume 10.7 fL Neutrophils (%) (Auto) 80.0 % Lymphocytes (%) (Auto) 10.9 % Monocytes (%) (Auto) 5.9 % Eosinophils (%) (Auto) 1.9 % Basophils (%) (Auto) 0.4 % Neutrophils # (Auto) 8.60 K/uL Lymphocytes # (Auto) 1.17 K/uL Monocytes # (Auto) 0.63 K/uL Eosinophils # (Auto) 0.20 K/uL Basophils # (Auto) 0.04 K/uL RDW Standard Deviation 44.9 fL RDW Coefficient of Variation 14.0 % Immature Granulocyte % (Auto) 0.9 % Immature Granulocyte # (Auto) 0.10 K/uL Sodium Level 138 mmol/L Potassium Level 3.9 mmol/L Chloride Level 99 mmol/L Carbon Dioxide Level 24 mmol/L Anion Gap 15.0 mmol/L Blood Urea Nitrogen 101 mg/dl Creatinine 6.50 mg/dl Est Creatinine Clear Calc Drug Dose 8.7 ml/min Estimated GFR () 6.8 Estimated GFR (Non- 5.9 BUN/Creatinine Ratio 15.5 Random Glucose 132 mg/dl Calcium Level 9.0 mg/dl Assessment & Plan 70 year old female with history of CAD s/p Stent, A fib off anticoagulation, CHF Diastolic Type, Recurrent CVA, Cerebellar Hemorrhage, DM, HTN, presenting with nausea/vomiting x few days. MILLY ON CKD-III -Likely volume depletion secondary to nausea/vomiting in setting of chronic lasix use -Baseline creatinine around 1.8, presented with 4.0 --> 5.60-->6.60 and thus started on dialysis on 07/06/16 -Started on dialysis on 07/06/16 - After 2 sessions, started with fluid removal on 07/08/16 - HD per Nephro appreciate the input ACUTE HYPOXIC RESPIRATORY FAILURE from CHF? in the setting ESRD r/o Aspiration Pneumonia Pleural Effusion R>L - now on 3 liters continue to wean off - on HD - speech therapy eval to r/o aspiration: mech soft diet Zosyn IV, Day 3 -Duonebs QID EPISODES OF UNRESPONSIVENESS possible breakthrough seizures Keppra held 07/11 noted to be unresponsive to any stimuli 07/12/16 CT head: negative Brain MRI: (+) acute subacute infarct left parietal lobe - Keppra 500mg after HD Keppra 1g daily - Aspirin resumed - appreciate Neurology eval HX OF RECURRENT CVA SEIZURE (Recent ICH, Hx of cerebral amyloid angiopathy as per records, Cerebellar infarct per recent CT scan last admission) This admission- stable small hemorrhage old with no new changes Brain MRI: (+) acute subacute infarct left parietal lobe - Keppra 500mg after HD Keppra 1g daily - Aspirin resumed - appreciate Neurology eval HYPERTENSIVE URGENCY Secondary to not taking meds due to nausea/vomiting. -Continue with Clonidine 0.3 mg BID, Nifedipine 90 mg daily, Metoprolol 125 mg ( home meds), IV Hydralazine PRN. Held lasix--> on dialysis -Monitor DELIRIUM =Resolved from Dysequilibrium syndrome ? with initiation of dialysis. -CT head repeat- No change, stable hemorrhage, ABGs-reviewed- respiratory alkalosis, CXR- congestion + UTI-E COLI UA +VE, CT - left perinephric stranding. -Urine c/S- E coli -S/P IV Rocephin (Day 3)--> Ciprofloxacin BID (Day 11/04) S/P NAUSEA/VOMITING - Resolved Possibly acute gastroenteritis vs related to UTI/Possible pyelo with ? left perinephric stranding on ct scan ? CAD S/P STENTING -Stable CHRONIC DIASTOLIC CHF -Per recent Echo EF of 50-55%. -lasix on hold -Now on dialysis ATRIAL FIBRILLATION - on Metoprolol - Aspirin resumed - anticoagulation held due to recent IC bleed DEPRESSION, MILD - Depressed due to personal stressors. -Psychiatry consult placed- appreciate inputs. No medications recommended at this time COPD as per records -Stable with no signs of exacerbation -Monitor DM2, well controlled as of recent HgA1c recent hba1c 5.9 -Not on meds -ISS, Accuchecks NUTRITION Mental status back to AAOX2 , thus taking PO DVT PROPHYLAXIS scds re: hemorrhage DISPOSITION pending Current Inpatient Medications: Current Inpatient Medications Medications (Trade) Dose Ordered Sig/Nydia Route Start Time Stop Time Status Last Admin Dose Admin Nifedipine (Procardia Xl Tab) 90 mg QAM PO 07/05/16 09:00 08/04/16 08:59 07/14/16 09:23 90 MG Acetaminophen (Tylenol Tab) 650 mg Q4H PRN PO 07/04/16 02:15 08/03/16 02:14 07/13/16 08:38 650 MG Nitroglycerin (Nitrostat Tab) 0.4 mg UD PRN SL 07/04/16 02:15 08/03/16 02:14 Allopurinol (Zyloprim Tab) 450 mg DAILY PO 07/04/16 09:00 08/03/16 08:59 07/14/16 09:23 450 MG Famotidine (Pepcid Tab) 20 mg DAILY PO 07/04/16 09:00 08/03/16 08:59 07/14/16 09:23 20 MG Metoprolol Succinate (Toprol Xl Tab) 125 mg HS PO 07/04/16 21:00 08/03/16 20:59 07/13/16 21:36 125 MG Tiotropium [place] (Spiriva Handihaler Inhaler) 1 puff DAILY INH 07/04/16 09:00 08/03/16 08:59 07/14/16 08:39 1 PUFF Polyethylene (Miralax Powder Packet) 17 gm DAILY PRN PO 07/04/16 02:15 08/03/16 02:14 Clonidine HCl (Catapres Tab) 0.3 mg BID PO 07/04/16 09:00 08/03/16 08:59 07/14/16 08:35 0.3 MG Insulin Aspart (novoLOG ASPART) SLIDING SCALE If C... ACHS SC 07/04/16 07:00 08/03/16 06:59 07/11/16 08:20 1 UNITS Glucose (Glucose 40% Gel) 15-30 GRAMS 15 GRAMS... UD PRN PO 07/04/16 04:45 08/03/16 04:44 Glucose (Glucose Chew Tab) 4-8 Tablets 4 Tabl... UD PRN PO 07/04/16 04:45 08/03/16 04:44 Dextrose (Dextrose 50% 50ML Syringe) 25-50ML OF 50% DW IV FOR... UD PRN IV 07/04/16 04:45 08/03/16 04:44 Glucagon (Glucagon Inj) 1 mg UD PRN SQ 07/04/16 04:45 08/03/16 04:44 Hydralazine HCl (HydrALAZINE INJ) 10 mg Q6 PRN IV. 07/04/16 12:15 08/03/16 12:14 Bisacodyl (Dulcolax Tab) 5 mg BID PRN PO 07/05/16 11:30 08/04/16 11:29 Docusate Sodium (coLACE CAP) 100 mg BID PRN PO 07/05/16 21:00 08/04/16 20:59 07/07/16 08:27 100 MG Albuterol/ Ipratropium (Duoneb) 3 ml QIDR INH 07/08/16 16:00 08/07/16 15:59 07/14/16 11:16 3 ML Albuterol/ Ipratropium (Duoneb) 3 ml Q2H PRN INH 07/08/16 13:30 08/07/16 13:29 Metoprolol Tartrate (Lopressor Iv) 5 mg Q6 PRN IV 07/11/16 18:00 08/10/16 17:59 Guaifenesin (Mucinex Contr Rel Tab) 600 mg Q12 PO 07/11/16 21:00 08/10/16 20:59 07/14/16 08:36 600 MG Guaifenesin (Robitussin Sugar Free Syrup) 100 mg Q6H PRN PO 07/11/16 15:00 08/10/16 14:59 07/13/16 12:26 100 MG Piperacillin Sod/ Tazobactam Sod 1 ea 1 ea UD PRN N/A 07/12/16 12:15 08/11/16 12:14 Piperacillin Sod/ Tazobactam Sod/ Dextrose (Zosyn Iv/D5 100ml) 120 ml @ 30 mls/hr Q12H IV 07/12/16 22:00 07/19/16 21:59 07/14/16 11:07 30 MLS/HR Aspirin (Ecotrin Tab) 81 mg QAM PO 07/13/16 09:00 08/12/16 08:59 07/14/16 09:23 81 MG Enteral Nutritional Formula (Boost Breeze Nutritional Drink) 1 box BIDM PO 07/13/16 16:45 08/12/16 16:44 07/14/16 18:32 1 BOX Heparin Sodium (Porcine) (Heparin Iv Bolus) 1,000 unit TODAY@0800 IV 07/14/16 08:00 07/14/16 23:59 Heparin Sodium (Porcine) (Heparin Iv Bolus) 400 unit TODAY@0800,0900,1000 IV 07/14/16 08:00 07/14/16 23:59 Levetiracetam (Keppra Tab) 1,000 mg HS PO 07/14/16 21:00 08/13/16 20:59 Levetiracetam (Keppra Tab) DAILY@1800 PO 07/14/16 18:00 08/13/16 17:59 07/14/16 18:32 500 MG
[2016-07-14] MEDS: METOPROLOL SUCC 50MG EXT REL TAB PO SCH (20:39)
[2016-07-15] VITALS (11 sets, daily range): BP systolic 136–160; BP diastolic 87–99; PULSE 77–98; TEMP 36.6–37; O2SAT 92–100
[2016-07-15] MEDS: HEPARIN SOD (PORCINE) 1000 UNIT/ML 10 ML VIAL IV SCH ×2 (01:05→01:06)
[2016-07-15] MEDS: INSULIN ASPART 100 UNITS/ML 3 ML PEN SC SCH ×4 (07:00→20:40)
[2016-07-15] MEDS: ALBUT/IPRATROP 3MG/0.5MG NEB 3 ML VIAL INH SCH ×4 (07:22→19:23)
[2016-07-15] MEDS: BOOST BREEZE NUTRITION DRINK 1 BOX PO SCH ×2 (08:01→15:57)
[2016-07-15] MEDS: TIOTROPIUM BROMIDE 5 PUFF/90 MCG INH INH SCH (08:03)
[2016-07-15] MEDS: ALLOPURINOL 300 MG TAB PO SCH (08:04)
[2016-07-15] MEDS: CLONIDINE HCL 0.1 MG TAB PO SCH ×2 (08:04→19:49)
[2016-07-15] MEDS: ASPIRIN 81 MG ECTAB PO SCH (08:05)
[2016-07-15] MEDS: GUAIFENESIN 600 MG TABCR PO SCH ×2 (08:05→19:49)
[2016-07-15] MEDS: FAMOTIDINE 20 MG TAB PO SCH (08:06)
[2016-07-15] MEDS: NIFEdipine 30 MG CR TAB PO SCH (08:06)
[2016-07-15 08:43] LABS: BUN/CREATININE RATIO 13.2 (10-20); CALCIUM 8.6 mg/dl (8.5-10.1); POTASSIUM 3.9 mmol/L (3.5-5.1)
[2016-07-15 08:46] LABS: CREATININE 4.7 mg/dl (0.60-1.20)
--- NOTE | 2016-07-15 09:42 | Nephrology Progress Note ---
Nephrology Progress Note Date of Service: Jul 15, 2016. Subjective 70 yo female with hypertensive urgency and reese on ckd stage 4 with atn which has required dialysis and also w/ delirium. Patient is seated comfortably. continues to be on 3L but states that she is feeling much better. much more interactive and coherent today. she is oriented x3. edema much improved. appetite unchanged. She denies any chest pain, nausea, abdominal pain, or cramping. BP appropriate. Objective Date Time Temp Pulse Resp B/P Pulse Ox O2 Delivery O2 Flow Rate FiO2 07/15/16 08:00 Nasal Cannula 3.0 07/15/16 07:34 37.0 94 20 149/94 100 3.0 07/15/16 07:15 84 16 99 Nasal Cannula 3.0 07/15/16 04:23 36.6 77 18 154/89 100 Nasal Cannula 3.0 07/15/16 04:00 Nasal Cannula 3.0 07/15/16 00:01 98 Nasal Cannula 3.0 07/14/16 23:25 36.5 96 18 155/87 98 Nasal Cannula 3.0 07/14/16 20:00 Nasal Cannula 3.0 07/14/16 19:57 36.8 111 20 160/83 95 Room Air 3.0 07/14/16 19:36 96 16 95 Nasal Cannula 3.0 07/14/16 18:15 98 Nasal Cannula 3.0 07/14/16 17:15 100 162/71 07/14/16 17:00 98 145/69 07/14/16 17:00 102 161/79 07/14/16 16:45 110 148/96 07/14/16 16:30 101 164/76 07/14/16 16:15 76 152/87 07/14/16 16:00 77 172/101 07/14/16 15:45 69 183/96 07/14/16 15:30 84 177/102 07/14/16 15:15 77 168/84 07/14/16 15:00 76 171/81 07/14/16 14:45 89 159/84 07/14/16 14:30 77 175/68 07/14/16 14:25 36.5 96 165/83 07/14/16 13:13 Room Air 07/14/16 12:00 98 Nasal Cannula 3.0 07/14/16 11:16 92 16 93 Nasal Cannula 3.0 07/14/16 11:02 36.6 99 18 161/93 98 Room Air Physical Exam: General: Alert, no distress, well nourished and well developed Eyes-no scleral icterus ENT-dry mm Neck-supple Lungs-diminished air entry but clear-improved since yesterday on 3L O2 Heart-irregular Abdomen-bs+ s/nt/nd, +ventral hernia, grove w/ ample urine Extremities-no edema Neuro Exam: oriented x 3 with fluent speech, no focal motor/sensory deficits Current Inpatient Medications Medications (Trade) Dose Ordered Sig/Nydia Route Start Time Stop Time Status Last Admin Dose Admin Nifedipine (Procardia Xl Tab) 90 mg QAM PO 07/05/16 09:00 08/04/16 08:59 07/15/16 08:06 90 MG Acetaminophen (Tylenol Tab) 650 mg Q4H PRN PO 07/04/16 02:15 08/03/16 02:14 07/13/16 08:38 650 MG Nitroglycerin (Nitrostat Tab) 0.4 mg UD PRN SL 07/04/16 02:15 08/03/16 02:14 Allopurinol (Zyloprim Tab) 450 mg DAILY PO 07/04/16 09:00 08/03/16 08:59 07/15/16 08:04 450 MG Famotidine (Pepcid Tab) 20 mg DAILY PO 07/04/16 09:00 08/03/16 08:59 07/15/16 08:06 20 MG Metoprolol Succinate (Toprol Xl Tab) 125 mg HS PO 07/04/16 21:00 08/03/16 20:59 07/14/16 20:39 125 MG Tiotropium [place] (Spiriva Handihaler Inhaler) 1 puff DAILY INH 07/04/16 09:00 08/03/16 08:59 07/15/16 08:03 1 PUFF Polyethylene (Miralax Powder Packet) 17 gm DAILY PRN PO 07/04/16 02:15 08/03/16 02:14 Clonidine HCl (Catapres Tab) 0.3 mg BID PO 07/04/16 09:00 08/03/16 08:59 07/15/16 08:04 0.3 MG Insulin Aspart (novoLOG ASPART) SLIDING SCALE If C... ACHS SC 07/04/16 07:00 08/03/16 06:59 07/14/16 20:43 1 UNITS Glucose (Glucose 40% Gel) 15-30 GRAMS 15 GRAMS... UD PRN PO 07/04/16 04:45 08/03/16 04:44 Glucose (Glucose Chew Tab) 4-8 Tablets 4 Tabl... UD PRN PO 07/04/16 04:45 08/03/16 04:44 Dextrose (Dextrose 50% 50ML Syringe) 25-50ML OF 50% DW IV FOR... UD PRN IV 07/04/16 04:45 08/03/16 04:44 Glucagon (Glucagon Inj) 1 mg UD PRN SQ 07/04/16 04:45 08/03/16 04:44 Hydralazine HCl (HydrALAZINE INJ) 10 mg Q6 PRN IV. 07/04/16 12:15 08/03/16 12:14 Bisacodyl (Dulcolax Tab) 5 mg BID PRN PO 07/05/16 11:30 08/04/16 11:29 Docusate Sodium (coLACE CAP) 100 mg BID PRN PO 07/05/16 21:00 08/04/16 20:59 07/07/16 08:27 100 MG Albuterol/ Ipratropium (Duoneb) 3 ml QIDR INH 07/08/16 16:00 08/07/16 15:59 07/15/16 07:22 3 ML Albuterol/ Ipratropium (Duoneb) 3 ml Q2H PRN INH 07/08/16 13:30 08/07/16 13:29 Metoprolol Tartrate (Lopressor Iv) 5 mg Q6 PRN IV 07/11/16 18:00 08/10/16 17:59 Guaifenesin (Mucinex Contr Rel Tab) 600 mg Q12 PO 07/11/16 21:00 08/10/16 20:59 07/15/16 08:05 600 MG Guaifenesin (Robitussin Sugar Free Syrup) 100 mg Q6H PRN PO 07/11/16 15:00 08/10/16 14:59 07/13/16 12:26 100 MG Piperacillin Sod/ Tazobactam Sod 1 ea 1 ea UD PRN N/A 07/12/16 12:15 08/11/16 12:14 Piperacillin Sod/ Tazobactam Sod/ Dextrose (Zosyn Iv/D5 100ml) 120 ml @ 30 mls/hr Q12H IV 07/12/16 22:00 07/19/16 21:59 07/14/16 21:40 30 MLS/HR Aspirin (Ecotrin Tab) 81 mg QAM PO 07/13/16 09:00 08/12/16 08:59 07/15/16 08:05 81 MG Enteral Nutritional Formula (Boost Breeze Nutritional Drink) 1 box BIDM PO 07/13/16 16:45 08/12/16 16:44 07/15/16 08:01 1 BOX Levetiracetam (Keppra Tab) 1,000 mg HS PO 07/14/16 21:00 08/13/16 20:59 07/14/16 20:38 1,000 MG Levetiracetam (Keppra Tab) DAILY@1800 PO 07/14/16 18:00 08/13/16 17:59 07/14/16 18:32 500 MG Last 24 Hours Test 07/14/16 11:10 07/14/16 20:39 07/15/16 06:46 07/15/16 07:00 Bedside Glucose 157 mg/dl 200 mg/dl 95 mg/dl Sodium Level 140 mmol/L Potassium Level 3.9 mmol/L Chloride Level 103 mmol/L Carbon Dioxide Level 23 mmol/L Anion Gap 14.0 mmol/L Blood Urea Nitrogen 62 mg/dl Creatinine 4.70 mg/dl Est Creatinine Clear Calc Drug Dose 11.7 ml/min Estimated GFR () 10.0 Estimated GFR (Non- 8.7 BUN/Creatinine Ratio 13.2 Random Glucose 110 mg/dl Calcium Level 8.6 mg/dl Other Studies: 07/13/16 07/14/16 07/15/16 07:59 07:59 07:59 Intake Total 940 ml 984 ml 1078 ml Output Total 1150 ml 975 ml 1050 ml Balance -210 ml 9 ml 28 ml Last Resulted CBC 07/14/16 07:45 Red Blood Count 4.51, Mean Corpuscular Volume 87.8, Mean Corpuscular Hemoglobin 31.0, Mean Corpuscular Hemoglobin Concent 35.4, Mean Platelet Volume 10.7, Neutrophils (%) (Auto) 80.0, Lymphocytes (%) (Auto) 10.9, Monocytes (%) (Auto) 5.9, Eosinophils (%) (Auto) 1.9, Basophils (%) (Auto) 0.4, Neutrophils # (Auto) 8.60, Lymphocytes # (Auto) 1.17, Monocytes # (Auto) 0.63, Eosinophils # (Auto) 0.20, Basophils # (Auto) 0.04 Last Resulted BMP 07/15/16 07:00 Assessment & Plan 70 yo female with hypertensive urgency and reese on ckd stage 4 with atn which has required dialysis and also w/ delirium. BP much improved/stable. Urine output continues to be stable. Patient had dialysis yesterday. Creatinine improved. potassium adequate at 3.9. will continue to monitor closely and dialyze as clinical condition dictates. There is no need for HD today. volume status improved. Goal is to optimize electrolytes and respiratory status. Likely to require additional HD. Dyspnea/wheezing: improved-continues to be on 3L O2. no recent CXR. will continue to follow volume status and gentle UF removal with dialysis as needed. This patient was seen and treated with direct collaboration with Dr. Lanza. Thank you for the opportunity to participate in this patient's care. Appreciate the Consult. ATTENDING NOTE: I performed a history and physical examination of the patient, including specifically on history-tolerated HD yesterday w/ 2.5L UF, on ROS-still w/ poor appetite, lethargy, on physical exam 02NC, no wheezing or increased resp effort , trace edema and grove, and my impression and plan are as above; reassess for likely HD on 07/16. I have discussed the patient's management with Anu Oliveros PA-C. Please refer to the above note for the documented findings and plan of care. Leeanne Lanza MD, PhD
[2016-07-15] MEDS: PIPERACILL/TAZOBAC IV 4.5 GM in DEXTROSE 5% 100ML IV SCH ×2 (10:08→21:52)
[2016-07-15] MEDS: LEVETIRACETAM 500 MG TAB PO SCH ×2 (18:00→19:49)
[2016-07-15] MEDS: ACETAMINOPHEN 325 MG TAB PO PRN (19:44)
[2016-07-15] MEDS: METOPROLOL SUCC 50MG EXT REL TAB PO SCH (19:49)
[2016-07-16] VITALS (26 sets, daily range): BP systolic 151–185; BP diastolic 74–115; PULSE 83–107; TEMP 36.3–36.9; O2SAT 96–100
--- NOTE | 2016-07-16 02:01 | Progress Note ---
Medicine Progress Note Date & Time of Visit: Jul 16, 2016 at 02:02. delayed entry date of service 07/15/16 Subjective seen resting inbed comfortably states she feels fine weakness improving no dyspnea, cough no other symptoms Objective Last 8 Hrs Date Time Temp Pulse Resp B/P Pulse Ox O2 Delivery O2 Flow Rate FiO2 07/15/16 23:25 36.7 78 20 154/99 96 Nasal Cannula 2.0 07/15/16 20:00 Nasal Cannula 2.0 07/15/16 19:48 36.9 97 22 160/93 92 Nasal Cannula 2.0 07/15/16 19:23 96 16 94 Nasal Cannula 2.0 Physical Exam: General- oriented x 2, not in distress Neck- no JVD Lungs- clear breath sounds bilaterally, no rales/wheezes Heart- normal rate, irregularly irregular rhythm; no murmurs Abdomen- normal bowel sounds, soft, nontender Extremities- no pretibial edema, no calf tenderness Neuro- alert, oriented x 2;no gross focal deficits Skin- warm & dry Laboratory Results: Last 24 Hours Test 07/15/16 06:46 07/15/16 07:00 07/15/16 11:07 07/15/16 16:26 Bedside Glucose 95 mg/dl 171 mg/dl 120 mg/dl Sodium Level 140 mmol/L Potassium Level 3.9 mmol/L Chloride Level 103 mmol/L Carbon Dioxide Level 23 mmol/L Anion Gap 14.0 mmol/L Blood Urea Nitrogen 62 mg/dl Creatinine 4.70 mg/dl Est Creatinine Clear Calc Drug Dose 11.7 ml/min Estimated GFR () 10.0 Estimated GFR (Non- 8.7 BUN/Creatinine Ratio 13.2 Random Glucose 110 mg/dl Calcium Level 8.6 mg/dl Test 07/15/16 20:39 Bedside Glucose 133 mg/dl Assessment & Plan 70 year old female with history of CAD s/p Stent, A fib off anticoagulation, CHF Diastolic Type, Recurrent CVA, Cerebellar Hemorrhage, DM, HTN, presenting with nausea/vomiting x few days. MILLY ON CKD-III -Likely volume depletion secondary to nausea/vomiting in setting of chronic lasix use -Baseline creatinine around 1.8, presented with 4.0 --> 5.60-->6.60 and thus started on dialysis on 07/06/16 -Started on dialysis on 07/06/16 - After 2 sessions, started with fluid removal on 07/08/16 - HD per Nephro appreciate the input ACUTE HYPOXIC RESPIRATORY FAILURE from CHF? in the setting ESRD possible Aspiration Pneumonia Pleural Effusion R>L - now on 2 liters continue to wean off - on HD - speech therapy eval to r/o aspiration: mech soft diet Zosyn IV, Day 4 -Duonebs QID EPISODES OF UNRESPONSIVENESS possible breakthrough seizures Keppra held 07/11 noted to be unresponsive to any stimuli 07/12/16 CT head: negative Brain MRI: (+) acute subacute infarct left parietal lobe - Keppra 500mg after HD Keppra 1g daily - Aspirin resumed - appreciate Neurology eval HX OF RECURRENT CVA SEIZURE (Recent ICH, Hx of cerebral amyloid angiopathy as per records, Cerebellar infarct per recent CT scan last admission) This admission- stable small hemorrhage old with no new changes Brain MRI: (+) acute subacute infarct left parietal lobe - Keppra 500mg after HD Keppra 1g daily - Aspirin resumed - appreciate Neurology eval HYPERTENSIVE URGENCY Secondary to not taking meds due to nausea/vomiting. -Continue with Clonidine 0.3 mg BID, Nifedipine 90 mg daily, Metoprolol 125 mg ( home meds), IV Hydralazine PRN. Held lasix--> on dialysis -Monitor DELIRIUM =Resolved from Dysequilibrium syndrome ? with initiation of dialysis. -CT head repeat- No change, stable hemorrhage, ABGs-reviewed- respiratory alkalosis, CXR- congestion + UTI-E COLI UA +VE, CT - left perinephric stranding. -Urine c/S- E coli -S/P IV Rocephin (Day 3)--> Ciprofloxacin BID (Day 11/04) S/P NAUSEA/VOMITING - Resolved Possibly acute gastroenteritis vs related to UTI/Possible pyelo with ? left perinephric stranding on ct scan ? CAD S/P STENTING -Stable CHRONIC DIASTOLIC CHF -Per recent Echo EF of 50-55%. -lasix on hold -Now on dialysis ATRIAL FIBRILLATION - on Metoprolol - Aspirin resumed - anticoagulation held due to recent IC bleed DEPRESSION, MILD - Depressed due to personal stressors. -Psychiatry consult placed- appreciate inputs. No medications recommended at this time COPD as per records -Stable with no signs of exacerbation -Monitor DM2, well controlled as of recent HgA1c recent hba1c 5.9 -Not on meds -ISS, Accuchecks NUTRITION Mental status back to AAOX2 , thus taking PO DVT PROPHYLAXIS scds re: hemorrhage DISPOSITION pending Current Inpatient Medications: Current Inpatient Medications Medications (Trade) Dose Ordered Sig/Nydia Route Start Time Stop Time Status Last Admin Dose Admin Nifedipine (Procardia Xl Tab) 90 mg QAM PO 07/05/16 09:00 08/04/16 08:59 07/15/16 08:06 90 MG Acetaminophen (Tylenol Tab) 650 mg Q4H PRN PO 07/04/16 02:15 08/03/16 02:14 07/15/16 19:44 650 MG Nitroglycerin (Nitrostat Tab) 0.4 mg UD PRN SL 07/04/16 02:15 08/03/16 02:14 Allopurinol (Zyloprim Tab) 450 mg DAILY PO 07/04/16 09:00 08/03/16 08:59 07/15/16 08:04 450 MG Famotidine (Pepcid Tab) 20 mg DAILY PO 07/04/16 09:00 08/03/16 08:59 07/15/16 08:06 20 MG Metoprolol Succinate (Toprol Xl Tab) 125 mg HS PO 07/04/16 21:00 08/03/16 20:59 07/15/16 19:49 125 MG Tiotropium [place] (Spiriva Handihaler Inhaler) 1 puff DAILY INH 07/04/16 09:00 08/03/16 08:59 07/15/16 08:03 1 PUFF Polyethylene (Miralax Powder Packet) 17 gm DAILY PRN PO 07/04/16 02:15 08/03/16 02:14 Clonidine HCl (Catapres Tab) 0.3 mg BID PO 07/04/16 09:00 08/03/16 08:59 07/15/16 19:49 0.3 MG Insulin Aspart (novoLOG ASPART) SLIDING SCALE If C... ACHS SC 07/04/16 07:00 08/03/16 06:59 07/14/16 20:43 1 UNITS Glucose (Glucose 40% Gel) 15-30 GRAMS 15 GRAMS... UD PRN PO 07/04/16 04:45 08/03/16 04:44 Glucose (Glucose Chew Tab) 4-8 Tablets 4 Tabl... UD PRN PO 07/04/16 04:45 08/03/16 04:44 Dextrose (Dextrose 50% 50ML Syringe) 25-50ML OF 50% DW IV FOR... UD PRN IV 07/04/16 04:45 08/03/16 04:44 Glucagon (Glucagon Inj) 1 mg UD PRN SQ 07/04/16 04:45 08/03/16 04:44 Hydralazine HCl (HydrALAZINE INJ) 10 mg Q6 PRN IV. 07/04/16 12:15 08/03/16 12:14 Bisacodyl (Dulcolax Tab) 5 mg BID PRN PO 07/05/16 11:30 08/04/16 11:29 Docusate Sodium (coLACE CAP) 100 mg BID PRN PO 07/05/16 21:00 08/04/16 20:59 07/07/16 08:27 100 MG Albuterol/ Ipratropium (Duoneb) 3 ml QIDR INH 07/08/16 16:00 08/07/16 15:59 07/15/16 19:23 3 ML Albuterol/ Ipratropium (Duoneb) 3 ml Q2H PRN INH 07/08/16 13:30 08/07/16 13:29 Metoprolol Tartrate (Lopressor Iv) 5 mg Q6 PRN IV 07/11/16 18:00 08/10/16 17:59 Guaifenesin (Mucinex Contr Rel Tab) 600 mg Q12 PO 07/11/16 21:00 08/10/16 20:59 07/15/16 19:49 600 MG Guaifenesin (Robitussin Sugar Free Syrup) 100 mg Q6H PRN PO 07/11/16 15:00 08/10/16 14:59 07/13/16 12:26 100 MG Piperacillin Sod/ Tazobactam Sod 1 ea 1 ea UD PRN N/A 07/12/16 12:15 08/11/16 12:14 Piperacillin Sod/ Tazobactam Sod/ Dextrose (Zosyn Iv/D5 100ml) 120 ml @ 30 mls/hr Q12H IV 07/12/16 22:00 07/19/16 21:59 07/15/16 21:52 30 MLS/HR Aspirin (Ecotrin Tab) 81 mg QAM PO 07/13/16 09:00 08/12/16 08:59 07/15/16 08:05 81 MG Enteral Nutritional Formula (Boost Breeze Nutritional Drink) 1 box BIDM PO 07/13/16 16:45 08/12/16 16:44 07/15/16 08:01 1 BOX Levetiracetam (Keppra Tab) 1,000 mg HS PO 07/14/16 21:00 08/13/16 20:59 07/15/16 19:49 1,000 MG Levetiracetam (Keppra Tab) DAILY@1800 PO 07/14/16 18:00 08/13/16 17:59 07/14/16 18:32 500 MG Heparin Sodium (Porcine) (Heparin Iv Bolus) 1,000 unit ONE IV 07/16/16 08:00 07/16/16 08:01 Heparin Sodium (Porcine) (Heparin Iv Bolus) 400 unit Q1H IV 07/16/16 08:00 07/16/16 10:01
[2016-07-16 07:09] LABS: BUN/CREATININE RATIO 13.6 (10-20); CALCIUM 8.4 mg/dl (8.5-10.1); CREATININE 5.5 mg/dl (0.60-1.20); POTASSIUM 3.6 mmol/L (3.5-5.1)
[2016-07-16] MEDS: BOOST BREEZE NUTRITION DRINK 1 BOX PO SCH ×2 (07:30→16:30)
[2016-07-16] MEDS: INSULIN ASPART 100 UNITS/ML 3 ML PEN SC SCH ×4 (07:31→20:48)
[2016-07-16] MEDS: ALBUT/IPRATROP 3MG/0.5MG NEB 3 ML VIAL INH SCH ×2 (07:51→11:36)
[2016-07-16] MEDS ORDERED: HEPARIN SOD (PORCINE) 1000 UNIT/ML 10 ML VIAL IV SCH ×2 (08:00)
[2016-07-16] MEDS: ASPIRIN 81 MG ECTAB PO SCH (09:00)
[2016-07-16] MEDS: NIFEdipine 30 MG CR TAB PO SCH ×2 (09:00→11:38)
[2016-07-16] MEDS: CLONIDINE HCL 0.1 MG TAB PO SCH ×3 (09:00→20:43)
[2016-07-16] MEDS: GUAIFENESIN 600 MG TABCR PO SCH ×2 (09:00→20:47)
[2016-07-16] MEDS: ALLOPURINOL 300 MG TAB PO SCH (09:00)
[2016-07-16] MEDS: TIOTROPIUM BROMIDE 5 PUFF/90 MCG INH INH SCH (09:00)
[2016-07-16] MEDS: FAMOTIDINE 20 MG TAB PO SCH (09:00)
--- NOTE | 2016-07-16 09:23 | Dialysis Progress Note ---
Nephrology Dialysis Note Date of Service: Jul 16, 2016. Subjective denies musculoskeletal or chest pain. no diarrhea/n/v. again more alert today. not dyspneic Objective Date Time Temp Pulse Resp B/P Pulse Ox O2 Delivery O2 Flow Rate FiO2 07/16/16 09:00 88 181/96 07/16/16 08:45 100 185/104 07/16/16 08:30 96 176/92 07/16/16 08:15 84 166/109 07/16/16 08:00 83 175/97 07/16/16 08:00 Nasal Cannula 2.0 07/16/16 07:45 94 160/98 07/16/16 07:30 36.7 91 171/102 07/16/16 07:25 36.7 90 18 151/74 97 Nasal Cannula 07/16/16 07:22 98 16 97 Nasal Cannula 2.0 07/16/16 04:00 99 Nasal Cannula 2.0 07/16/16 03:16 36.3 90 18 151/89 99 Nasal Cannula 2.0 07/16/16 00:01 96 Nasal Cannula 2.0 07/15/16 23:25 36.7 78 20 154/99 96 Nasal Cannula 2.0 07/15/16 20:00 Nasal Cannula 2.0 07/15/16 19:48 36.9 97 22 160/93 92 Nasal Cannula 2.0 07/15/16 19:23 96 16 94 Nasal Cannula 2.0 07/15/16 16:00 Nasal Cannula 2.0 07/15/16 15:47 36.9 98 18 147/88 95 2.0 07/15/16 15:08 91 16 94 Nasal Cannula 2.0 07/15/16 12:00 Nasal Cannula 3.0 07/15/16 11:09 92 16 96 Nasal Cannula 2.0 07/15/16 10:57 36.8 93 18 136/87 96 2.0 Physical Exam: General-nad on 02NC, oriented to self and place Eyes-no scleral icterus ENT-dry mm Neck-supple Lungs-diminished air entry but clear, ant exam on HD Heart-irregular Abdomen-bs+ s/nt/nd, +ventral hernia, grove w/ ample urine Extremities-no edema Neuro-schmidt, limited speech/ ineraction but not overtly confused / tired Current Inpatient Medications Medications (Trade) Dose Ordered Sig/Nydia Route Start Time Stop Time Status Last Admin Dose Admin Nifedipine (Procardia Xl Tab) 90 mg QAM PO 07/05/16 09:00 08/04/16 08:59 07/15/16 08:06 90 MG Acetaminophen (Tylenol Tab) 650 mg Q4H PRN PO 07/04/16 02:15 08/03/16 02:14 07/15/16 19:44 650 MG Nitroglycerin (Nitrostat Tab) 0.4 mg UD PRN SL 07/04/16 02:15 08/03/16 02:14 Allopurinol (Zyloprim Tab) 450 mg DAILY PO 07/04/16 09:00 08/03/16 08:59 07/15/16 08:04 450 MG Famotidine (Pepcid Tab) 20 mg DAILY PO 07/04/16 09:00 08/03/16 08:59 07/15/16 08:06 20 MG Metoprolol Succinate (Toprol Xl Tab) 125 mg HS PO 07/04/16 21:00 08/03/16 20:59 07/15/16 19:49 125 MG Tiotropium [place] (Spiriva Handihaler Inhaler) 1 puff DAILY INH 07/04/16 09:00 08/03/16 08:59 07/15/16 08:03 1 PUFF Polyethylene (Miralax Powder Packet) 17 gm DAILY PRN PO 07/04/16 02:15 08/03/16 02:14 Clonidine HCl (Catapres Tab) 0.3 mg BID PO 07/04/16 09:00 08/03/16 08:59 07/15/16 19:49 0.3 MG Insulin Aspart (novoLOG ASPART) SLIDING SCALE If C... ACHS SC 07/04/16 07:00 08/03/16 06:59 07/14/16 20:43 1 UNITS Glucose (Glucose 40% Gel) 15-30 GRAMS 15 GRAMS... UD PRN PO 07/04/16 04:45 08/03/16 04:44 Glucose (Glucose Chew Tab) 4-8 Tablets 4 Tabl... UD PRN PO 07/04/16 04:45 08/03/16 04:44 Dextrose (Dextrose 50% 50ML Syringe) 25-50ML OF 50% DW IV FOR... UD PRN IV 07/04/16 04:45 08/03/16 04:44 Glucagon (Glucagon Inj) 1 mg UD PRN SQ 07/04/16 04:45 08/03/16 04:44 Hydralazine HCl (HydrALAZINE INJ) 10 mg Q6 PRN IV. 07/04/16 12:15 08/03/16 12:14 Bisacodyl (Dulcolax Tab) 5 mg BID PRN PO 07/05/16 11:30 08/04/16 11:29 Docusate Sodium (coLACE CAP) 100 mg BID PRN PO 07/05/16 21:00 08/04/16 20:59 07/07/16 08:27 100 MG Albuterol/ Ipratropium (Duoneb) 3 ml QIDR INH 07/08/16 16:00 08/07/16 15:59 07/16/16 07:51 3 ML Albuterol/ Ipratropium (Duoneb) 3 ml Q2H PRN INH 07/08/16 13:30 08/07/16 13:29 Metoprolol Tartrate (Lopressor Iv) 5 mg Q6 PRN IV 07/11/16 18:00 08/10/16 17:59 Guaifenesin (Mucinex Contr Rel Tab) 600 mg Q12 PO 07/11/16 21:00 08/10/16 20:59 07/15/16 19:49 600 MG Guaifenesin (Robitussin Sugar Free Syrup) 100 mg Q6H PRN PO 07/11/16 15:00 08/10/16 14:59 07/13/16 12:26 100 MG Piperacillin Sod/ Tazobactam Sod 1 ea 1 ea UD PRN N/A 07/12/16 12:15 08/11/16 12:14 Piperacillin Sod/ Tazobactam Sod/ Dextrose (Zosyn Iv/D5 100ml) 120 ml @ 30 mls/hr Q12H IV 07/12/16 22:00 07/19/16 21:59 07/15/16 21:52 30 MLS/HR Aspirin (Ecotrin Tab) 81 mg QAM PO 07/13/16 09:00 08/12/16 08:59 07/15/16 08:05 81 MG Enteral Nutritional Formula (Boost Breeze Nutritional Drink) 1 box BIDM PO 07/13/16 16:45 08/12/16 16:44 07/15/16 08:01 1 BOX Levetiracetam (Keppra Tab) 1,000 mg HS PO 07/14/16 21:00 08/13/16 20:59 07/15/16 19:49 1,000 MG Levetiracetam (Keppra Tab) DAILY@1800 PO 07/14/16 18:00 08/13/16 17:59 07/14/16 18:32 500 MG Heparin Sodium (Porcine) (Heparin Iv Bolus) 400 unit Q1H IV 07/16/16 08:00 07/16/16 10:01 Last 24 Hours Test 07/15/16 11:07 07/15/16 16:26 07/15/16 20:39 07/16/16 05:45 Bedside Glucose 171 mg/dl 120 mg/dl 133 mg/dl Sodium Level 139 mmol/L Potassium Level 3.6 mmol/L Chloride Level 102 mmol/L Carbon Dioxide Level 26 mmol/L Anion Gap 11.0 mmol/L Blood Urea Nitrogen 75 mg/dl Creatinine 5.50 mg/dl Est Creatinine Clear Calc Drug Dose 9.9 ml/min Estimated GFR () 8.3 Estimated GFR (Non- 7.2 BUN/Creatinine Ratio 13.6 Random Glucose 111 mg/dl Calcium Level 8.4 mg/dl Test 07/16/16 06:38 Bedside Glucose 97 mg/dl Assessment & Plan 70 yo female with hypertensive urgency and milly on ckd stage 4 with atn which has required dialysis and also w/ delirium. 70 yo female with hypertensive urgency and milly on ckd stage 4 with atn which has required dialysis and also w/ delirium. urine output cont to increase which is heartening; despite this and significant fluid removal yesterday her breathing is worse today. creatinine also trending up without dialysis. MILLY/ATN-although urinating about 1L daily w/ consistency, still requires dialysis for clearance/ vol mgt. 02 needs (supplemental) much improved Dyspnea/wheezing: improved- continue to follow volume status and gentle UF removal with dialysis as needed. HTN persistent > shoul dimprove some w/ HD appreciate consult; will follow ith you.
[2016-07-16] MEDS: PIPERACILL/TAZOBAC IV 4.5 GM in DEXTROSE 5% 100ML IV SCH ×2 (11:15→20:47)
[2016-07-16] MEDS: IPRATROPIUM BROMIDE/ALBUTEROL respimat INH INH SCH ×2 (12:49→16:30)
[2016-07-16] MEDS: LEVETIRACETAM 500 MG TAB PO SCH ×2 (16:32→20:44)
[2016-07-16] MEDS ORDERED: IPRATROPIUM BROMIDE/ALBUTEROL respimat INH INH PRN (17:00)
--- NOTE | 2016-07-16 17:01 | Progress Note ---
Medicine Progress Note Date & Time of Visit: Jul 16, 2016 at 17:00. Subjective sitting up in bed, comfortable, bright/alert denies dyspnea, cough no chest pain, dizziness appetite improving states she feels fine inquiring about discharge Objective Last 8 Hrs Date Time Temp Pulse Resp B/P Pulse Ox O2 Delivery O2 Flow Rate FiO2 07/16/16 16:00 Nasal Cannula 2.0 07/16/16 15:34 36.8 89 18 161/110 100 2.0 160/115 07/16/16 12:00 Nasal Cannula 2.0 07/16/16 11:45 36.9 107 20 153/99 100 Room Air 07/16/16 11:30 101 16 100 Nasal Cannula 3.0 07/16/16 11:30 36.9 171/109 07/16/16 11:15 91 165/98 07/16/16 11:00 93 173/102 07/16/16 10:45 100 176/99 07/16/16 10:30 98 183/110 07/16/16 10:15 102 179/104 07/16/16 10:00 89 184/88 07/16/16 10:00 98 171/95 07/16/16 09:45 102 170/102 07/16/16 09:30 102 169/101 07/16/16 09:15 95 174/98 Physical Exam: General- oriented x 2, not in distress Neck- no JVD Lungs- clear breath sounds b/l no rales/wheezes Heart- normal rate, irregularly irregular rhythm; no murmurs Abdomen- normal bowel sounds, soft, nontender Extremities- no pretibial edema, no calf tenderness Neuro- alert, oriented x 2;no gross focal deficits Skin- warm & dry Laboratory Results: Last 24 Hours Test 07/15/16 20:39 07/16/16 05:45 07/16/16 06:38 07/16/16 11:30 Bedside Glucose 133 mg/dl 97 mg/dl 86 mg/dl Sodium Level 139 mmol/L Potassium Level 3.6 mmol/L Chloride Level 102 mmol/L Carbon Dioxide Level 26 mmol/L Anion Gap 11.0 mmol/L Blood Urea Nitrogen 75 mg/dl Creatinine 5.50 mg/dl Est Creatinine Clear Calc Drug Dose 9.9 ml/min Estimated GFR () 8.3 Estimated GFR (Non- 7.2 BUN/Creatinine Ratio 13.6 Random Glucose 111 mg/dl Calcium Level 8.4 mg/dl Test 07/16/16 16:17 Bedside Glucose 149 mg/dl Assessment & Plan 70 year old female with history of CAD s/p Stent, A fib off anticoagulation, CHF Diastolic Type, Recurrent CVA, Cerebellar Hemorrhage, DM, HTN, presenting with nausea/vomiting x few days. MILLY ON CKD-III -Likely volume depletion secondary to nausea/vomiting in setting of chronic lasix use -Baseline creatinine around 1.8, presented with 4.0 --> 5.60-->6.60 and thus started on dialysis on 07/06/16 -Started on dialysis on 07/06/16 - After 2 sessions, started with fluid removal on 07/08/16 - HD per Nephro appreciate the input ACUTE HYPOXIC RESPIRATORY FAILURE from CHF? in the setting ESRD possible Aspiration Pneumonia Pleural Effusion R>L - now on 2 liters continue to wean off - on HD - speech therapy eval to r/o aspiration: mech soft diet Zosyn IV, Day 5 -Duonebs QID PRN EPISODES OF UNRESPONSIVENESS possible breakthrough seizures Keppra held 07/11 noted to be unresponsive to any stimuli 07/12/16 CT head: negative Brain MRI: (+) acute subacute infarct left parietal lobe - Keppra 500mg after HD Keppra 1g daily - Aspirin resumed - appreciate Neurology eval HX OF RECURRENT CVA SEIZURE (Recent ICH, Hx of cerebral amyloid angiopathy as per records, Cerebellar infarct per recent CT scan last admission) This admission- stable small hemorrhage old with no new changes Brain MRI: (+) acute subacute infarct left parietal lobe - Keppra 500mg after HD Keppra 1g daily - Aspirin resumed - appreciate Neurology eval HYPERTENSIVE URGENCY Secondary to not taking meds due to nausea/vomiting. -Continue with Clonidine 0.3 mg BID, Nifedipine 90 mg daily, Metoprolol 125 mg ( home meds), IV Hydralazine PRN. Held lasix--> on dialysis -Monitor DELIRIUM =Resolved from Dysequilibrium syndrome ? with initiation of dialysis. -CT head repeat- No change, stable hemorrhage, ABGs-reviewed- respiratory alkalosis, CXR- congestion + UTI-E COLI UA +VE, CT - left perinephric stranding. -Urine c/S- E coli -S/P IV Rocephin (Day 3)--> Ciprofloxacin BID (Day 11/04) S/P NAUSEA/VOMITING - Resolved Possibly acute gastroenteritis vs related to UTI/Possible pyelo with ? left perinephric stranding on ct scan ? CAD S/P STENTING -Stable CHRONIC DIASTOLIC CHF -Per recent Echo EF of 50-55%. -lasix on hold -Now on dialysis ATRIAL FIBRILLATION - on Metoprolol - Aspirin resumed - anticoagulation held due to recent IC bleed DEPRESSION, MILD - Depressed due to personal stressors. -Psychiatry consult placed- appreciate inputs. No medications recommended at this time COPD as per records -Stable with no signs of exacerbation -Monitor DM2, well controlled as of recent HgA1c recent hba1c 5.9 -Not on meds -ISS, Accuchecks NUTRITION Mental status back to AAOX2 , thus taking PO DVT PROPHYLAXIS scds re: hemorrhage DISPOSITION pending Current Inpatient Medications: Current Inpatient Medications Medications (Trade) Dose Ordered Sig/Nydia Route Start Time Stop Time Status Last Admin Dose Admin Nifedipine (Procardia Xl Tab) 90 mg QAM PO 07/05/16 09:00 08/04/16 08:59 07/16/16 11:38 90 MG Acetaminophen (Tylenol Tab) 650 mg Q4H PRN PO 07/04/16 02:15 08/03/16 02:14 07/15/16 19:44 650 MG Nitroglycerin (Nitrostat Tab) 0.4 mg UD PRN SL 07/04/16 02:15 08/03/16 02:14 Allopurinol (Zyloprim Tab) 450 mg DAILY PO 07/04/16 09:00 08/03/16 08:59 07/15/16 08:04 450 MG Famotidine (Pepcid Tab) 20 mg DAILY PO 07/04/16 09:00 08/03/16 08:59 07/15/16 08:06 20 MG Metoprolol Succinate (Toprol Xl Tab) 125 mg HS PO 07/04/16 21:00 08/03/16 20:59 07/15/16 19:49 125 MG Tiotropium [place] (Spiriva Handihaler Inhaler) 1 puff DAILY INH 07/04/16 09:00 08/03/16 08:59 07/15/16 08:03 1 PUFF Polyethylene (Miralax Powder Packet) 17 gm DAILY PRN PO 07/04/16 02:15 08/03/16 02:14 Clonidine HCl (Catapres Tab) 0.3 mg BID PO 07/04/16 09:00 08/03/16 08:59 07/16/16 11:38 0.3 MG Insulin Aspart (novoLOG ASPART) SLIDING SCALE If C... ACHS SC 07/04/16 07:00 08/03/16 06:59 07/14/16 20:43 1 UNITS Glucose (Glucose 40% Gel) 15-30 GRAMS 15 GRAMS... UD PRN PO 07/04/16 04:45 08/03/16 04:44 Glucose (Glucose Chew Tab) 4-8 Tablets 4 Tabl... UD PRN PO 07/04/16 04:45 08/03/16 04:44 Dextrose (Dextrose 50% 50ML Syringe) 25-50ML OF 50% DW IV FOR... UD PRN IV 07/04/16 04:45 08/03/16 04:44 Glucagon (Glucagon Inj) 1 mg UD PRN SQ 07/04/16 04:45 08/03/16 04:44 Hydralazine HCl (HydrALAZINE INJ) 10 mg Q6 PRN IV. 07/04/16 12:15 08/03/16 12:14 Bisacodyl (Dulcolax Tab) 5 mg BID PRN PO 07/05/16 11:30 08/04/16 11:29 Docusate Sodium (coLACE CAP) 100 mg BID PRN PO 07/05/16 21:00 08/04/16 20:59 07/07/16 08:27 100 MG Albuterol/ Ipratropium (Duoneb) 3 ml Q2H PRN INH 07/08/16 13:30 08/07/16 13:29 Metoprolol Tartrate (Lopressor Iv) 5 mg Q6 PRN IV 07/11/16 18:00 08/10/16 17:59 Guaifenesin (Mucinex Contr Rel Tab) 600 mg Q12 PO 07/11/16 21:00 08/10/16 20:59 07/15/16 19:49 600 MG Guaifenesin (Robitussin Sugar Free Syrup) 100 mg Q6H PRN PO 07/11/16 15:00 08/10/16 14:59 07/13/16 12:26 100 MG Piperacillin Sod/ Tazobactam Sod 1 ea 1 ea UD PRN N/A 07/12/16 12:15 08/11/16 12:14 Piperacillin Sod/ Tazobactam Sod/ Dextrose (Zosyn Iv/D5 100ml) 120 ml @ 30 mls/hr Q12H IV 07/12/16 22:00 07/19/16 21:59 07/15/16 21:52 30 MLS/HR Aspirin (Ecotrin Tab) 81 mg QAM PO 07/13/16 09:00 08/12/16 08:59 07/15/16 08:05 81 MG Enteral Nutritional Formula (Boost Breeze Nutritional Drink) 1 box BIDM PO 07/13/16 16:45 08/12/16 16:44 07/16/16 16:30 1 BOX Levetiracetam (Keppra Tab) 1,000 mg HS PO 07/14/16 21:00 08/13/16 20:59 07/15/16 19:49 1,000 MG Levetiracetam (Keppra Tab) DAILY@1800 PO 07/14/16 18:00 08/13/16 17:59 07/16/16 16:32 500 MG Albuterol/ Ipratropium (Combivent Respimat Inh) 1 puffs QID PRN INH 07/16/16 17:00 08/15/16 16:59 UNV
[2016-07-16] MEDS: ACETAMINOPHEN 325 MG TAB PO PRN (18:38)
[2016-07-16] MEDS: METOPROLOL SUCC 50MG EXT REL TAB PO SCH (20:46)
[2016-07-17] VITALS (7 sets, daily range): BP systolic 133–171; BP diastolic 75–109; PULSE 84–89; TEMP 36.4–36.9; O2SAT 94–100
[2016-07-17 06:15] LABS: BASO % 0.3 %; BASO ABS # 0.03 K/uL (0-0.2); COMPLETE YES; EOS % 2.5 %; HEMATOCRIT 35.5 % (37-47); IG% 0.4 %; LYMPH % 13.6 %; MEAN CORPUSCULAR HEMOGLOBIN 30.8 pg (25-34); MEAN CORPUSCULAR HGB CONC 35.8 g/dl (32-36); MEAN PLATELET VOLUME 10.7 fL (7.4-10.4); MONO % 8.2 %; PLATELET COUNT 146 K/uL (130-400); RED BLOOD COUNT 4.13 M/uL (4.2-5.4)
[2016-07-17] MEDS: INSULIN ASPART 100 UNITS/ML 3 ML PEN SC SCH ×4 (07:00→21:00)
[2016-07-17 07:16] LABS: BUN/CREATININE RATIO 12.2 (10-20); CALCIUM 8.4 mg/dl (8.5-10.1); CREATININE 4.8 mg/dl (0.60-1.20); POTASSIUM 3.6 mmol/L (3.5-5.1)
[2016-07-17] MEDS: BOOST BREEZE NUTRITION DRINK 1 BOX PO SCH ×2 (08:20→16:25)
[2016-07-17] MEDS: GUAIFENESIN 600 MG TABCR PO SCH ×2 (08:21→21:14)
[2016-07-17] MEDS: ASPIRIN 81 MG ECTAB PO SCH (08:21)
[2016-07-17] MEDS: TIOTROPIUM BROMIDE 5 PUFF/90 MCG INH INH SCH (08:21)
[2016-07-17] MEDS: FAMOTIDINE 20 MG TAB PO SCH (08:22)
[2016-07-17] MEDS: NIFEdipine 30 MG CR TAB PO SCH (08:22)
[2016-07-17] MEDS: ALLOPURINOL 300 MG TAB PO SCH (08:23)
[2016-07-17] MEDS: CLONIDINE HCL 0.1 MG TAB PO SCH ×2 (08:24→21:17)
[2016-07-17] MEDS: PIPERACILL/TAZOBAC IV 4.5 GM in DEXTROSE 5% 100ML IV SCH ×2 (10:36→21:13)
[2016-07-17] MEDS: LEVETIRACETAM 500 MG TAB PO SCH ×2 (15:21→21:16)
[2016-07-17] MEDS: ACETAMINOPHEN 325 MG TAB PO PRN (15:50)
--- NOTE | 2016-07-17 19:09 | Progress Note ---
Medicine Progress Note Date & Time of Visit: Jul 17, 2016 at 19:05. Subjective sitting up in bedside chair states she feels better today denies dyspnea, cough, chest pain appetite improving no other symptoms Objective Last 8 Hrs Date Time Temp Pulse Resp B/P Pulse Ox O2 Delivery O2 Flow Rate FiO2 07/17/16 16:00 Nasal Cannula 2.0 07/17/16 15:41 36.8 87 18 168/109 99 2.0 171/100 07/17/16 12:00 Nasal Cannula 2.0 07/17/16 11:14 36.9 89 18 133/87 99 Nasal Cannula 3.0 Physical Exam: General- oriented x 2, not in distress, no acc muscle use Neck- no JVD Lungs- clear breath sounds no rales/wheezes bilaterally Heart- normal rate, irregularly irregular rhythm; no murmurs Abdomen- normal bowel sounds, soft, nontender Extremities- no pretibial edema, no calf tenderness Neuro- alert, oriented x 2;no gross focal deficits Skin- warm & dry Laboratory Results: Last 24 Hours Test 07/16/16 20:08 07/17/16 06:00 07/17/16 06:08 07/17/16 11:32 Bedside Glucose 138 mg/dl 110 mg/dl 128 mg/dl White Blood Count 10.30 K/uL Red Blood Count 4.13 M/uL Hemoglobin 12.7 g/dL Hematocrit 35.5 % Mean Corpuscular Volume 86.0 fL Mean Corpuscular Hemoglobin 30.8 pg Mean Corpuscular Hemoglobin Concent 35.8 g/dl Platelet Count 146 K/uL Mean Platelet Volume 10.7 fL Neutrophils (%) (Auto) 75.0 % Lymphocytes (%) (Auto) 13.6 % Monocytes (%) (Auto) 8.2 % Eosinophils (%) (Auto) 2.5 % Basophils (%) (Auto) 0.3 % Neutrophils # (Auto) 7.73 K/uL Lymphocytes # (Auto) 1.40 K/uL Monocytes # (Auto) 0.84 K/uL Eosinophils # (Auto) 0.26 K/uL Basophils # (Auto) 0.03 K/uL RDW Standard Deviation 43.6 fL RDW Coefficient of Variation 14.0 % Immature Granulocyte % (Auto) 0.4 % Immature Granulocyte # (Auto) 0.04 K/uL Sodium Level 138 mmol/L Potassium Level 3.6 mmol/L Chloride Level 103 mmol/L Carbon Dioxide Level 23 mmol/L Anion Gap 12.0 mmol/L Blood Urea Nitrogen 59 mg/dl Creatinine 4.80 mg/dl Est Creatinine Clear Calc Drug Dose 11.3 ml/min Estimated GFR () 9.8 Estimated GFR (Non- 8.4 BUN/Creatinine Ratio 12.2 Random Glucose 113 mg/dl Calcium Level 8.4 mg/dl Test 07/17/16 16:19 Bedside Glucose 110 mg/dl Assessment & Plan 70 year old female with history of CAD s/p Stent, A fib off anticoagulation, CHF Diastolic Type, Recurrent CVA, Cerebellar Hemorrhage, DM, HTN, presenting with nausea/vomiting x few days. MILLY ON CKD-III -Likely volume depletion secondary to nausea/vomiting in setting of chronic lasix use -Baseline creatinine around 1.8, presented with 4.0 --> 5.60-->6.60 and thus started on dialysis on 07/06/16 -Started on dialysis on 07/06/16 - After 2 sessions, started with fluid removal on 07/08/16 - HD per Nephro will need further HD as outpatient appreciate the input ACUTE HYPOXIC RESPIRATORY FAILURE from CHF? in the setting ESRD possible Aspiration Pneumonia Pleural Effusion R>L - now on 2 liters continue to wean off - on HD - speech therapy eval to r/o aspiration: mech soft diet Zosyn IV, Day 6 -Duonebs QID PRN - clinically improving overall EPISODES OF UNRESPONSIVENESS possible breakthrough seizures Keppra held 07/11 noted to be unresponsive to any stimuli 07/12/16 CT head: negative Brain MRI: (+) acute subacute infarct left parietal lobe - Keppra 500mg after HD Keppra 1g daily - Aspirin resumed - no further episodes - appreciate Neurology eval HX OF RECURRENT CVA SEIZURE (Recent ICH, Hx of cerebral amyloid angiopathy as per records, Cerebellar infarct per recent CT scan last admission) This admission- stable small hemorrhage old with no new changes Brain MRI: (+) acute subacute infarct left parietal lobe - Keppra 500mg after HD Keppra 1g daily - Aspirin resumed - appreciate Neurology eval HYPERTENSIVE URGENCY Secondary to not taking meds due to nausea/vomiting. -Continue with Clonidine 0.3 mg BID, Nifedipine 90 mg daily, Metoprolol 125 mg ( home meds), IV Hydralazine PRN. Held lasix--> on dialysis -Monitor DELIRIUM =Resolved from Dysequilibrium syndrome ? with initiation of dialysis. -CT head repeat- No change, stable hemorrhage, ABGs-reviewed- respiratory alkalosis, CXR- congestion + UTI-E COLI UA +VE, CT - left perinephric stranding. -Urine c/S- E coli -S/P IV Rocephin (Day 3)--> Ciprofloxacin BID (Day 11/04) S/P NAUSEA/VOMITING - Resolved Possibly acute gastroenteritis vs related to UTI/Possible pyelo with ? left perinephric stranding on ct scan ? CAD S/P STENTING -Stable CHRONIC DIASTOLIC CHF -Per recent Echo EF of 50-55%. -lasix on hold -Now on dialysis ATRIAL FIBRILLATION - on Metoprolol, Aspirin - anticoagulation held due to recent IC bleed DEPRESSION, MILD - Depressed due to personal stressors. -Psychiatry consult placed- appreciate inputs. No medications recommended at this time COPD as per records -Stable with no signs of exacerbation -Monitor DM2, well controlled as of recent HgA1c recent hba1c 5.9 -Not on meds -ISS, Accuchecks NUTRITION Mental status back to AAOX2 , thus taking PO DVT PROPHYLAXIS scds re: hemorrhage DISPOSITION pending would like to stay in [facility] and be transported to HD center for HD will discuss with case management Current Inpatient Medications: Current Inpatient Medications Medications (Trade) Dose Ordered Sig/Nyida Route Start Time Stop Time Status Last Admin Dose Admin Nifedipine (Procardia Xl Tab) 90 mg QAM PO 07/05/16 09:00 08/04/16 08:59 07/17/16 08:22 90 MG Acetaminophen (Tylenol Tab) 650 mg Q4H PRN PO 07/04/16 02:15 08/03/16 02:14 07/17/16 15:50 650 MG Nitroglycerin (Nitrostat Tab) 0.4 mg UD PRN SL 07/04/16 02:15 08/03/16 02:14 Allopurinol (Zyloprim Tab) 450 mg DAILY PO 07/04/16 09:00 08/03/16 08:59 07/17/16 08:23 450 MG Famotidine (Pepcid Tab) 20 mg DAILY PO 07/04/16 09:00 08/03/16 08:59 07/17/16 08:22 20 MG Metoprolol Succinate (Toprol Xl Tab) 125 mg HS PO 07/04/16 21:00 08/03/16 20:59 07/16/16 20:46 125 MG Tiotropium [place] (Spiriva Handihaler Inhaler) 1 puff DAILY INH 07/04/16 09:00 08/03/16 08:59 07/15/16 08:03 1 PUFF Polyethylene (Miralax Powder Packet) 17 gm DAILY PRN PO 07/04/16 02:15 08/03/16 02:14 Clonidine HCl (Catapres Tab) 0.3 mg BID PO 07/04/16 09:00 08/03/16 08:59 07/17/16 08:24 0.3 MG Insulin Aspart (novoLOG ASPART) SLIDING SCALE If C... ACHS SC 07/04/16 07:00 08/03/16 06:59 07/14/16 20:43 1 UNITS Glucose (Glucose 40% Gel) 15-30 GRAMS 15 GRAMS... UD PRN PO 07/04/16 04:45 08/03/16 04:44 Glucose (Glucose Chew Tab) 4-8 Tablets 4 Tabl... UD PRN PO 07/04/16 04:45 08/03/16 04:44 Dextrose (Dextrose 50% 50ML Syringe) 25-50ML OF 50% DW IV FOR... UD PRN IV 07/04/16 04:45 08/03/16 04:44 Glucagon (Glucagon Inj) 1 mg UD PRN SQ 07/04/16 04:45 08/03/16 04:44 Hydralazine HCl (HydrALAZINE INJ) 10 mg Q6 PRN IV. 07/04/16 12:15 08/03/16 12:14 Bisacodyl (Dulcolax Tab) 5 mg BID PRN PO 07/05/16 11:30 08/04/16 11:29 Docusate Sodium (coLACE CAP) 100 mg BID PRN PO 07/05/16 21:00 08/04/16 20:59 07/07/16 08:27 100 MG Metoprolol Tartrate (Lopressor Iv) 5 mg Q6 PRN IV 07/11/16 18:00 08/10/16 17:59 Guaifenesin (Mucinex Contr Rel Tab) 600 mg Q12 PO 07/11/16 21:00 08/10/16 20:59 07/17/16 08:21 600 MG Guaifenesin (Robitussin Sugar Free Syrup) 100 mg Q6H PRN PO 07/11/16 15:00 08/10/16 14:59 07/13/16 12:26 100 MG Piperacillin Sod/ Tazobactam Sod 1 ea 1 ea UD PRN N/A 07/12/16 12:15 08/11/16 12:14 Piperacillin Sod/ Tazobactam Sod/ Dextrose (Zosyn Iv/D5 100ml) 120 ml @ 30 mls/hr Q12H IV 07/12/16 22:00 07/19/16 21:59 07/17/16 10:36 30 MLS/HR Aspirin (Ecotrin Tab) 81 mg QAM PO 07/13/16 09:00 08/12/16 08:59 07/15/16 08:05 81 MG Enteral Nutritional Formula (Boost Breeze Nutritional Drink) 1 box BIDM PO 07/13/16 16:45 08/12/16 16:44 07/17/16 16:25 1 BOX Levetiracetam (Keppra Tab) 1,000 mg HS PO 07/14/16 21:00 08/13/16 20:59 07/16/16 20:44 1,000 MG Levetiracetam (Keppra Tab) DAILY@1800 PO 07/14/16 18:00 08/13/16 17:59 07/16/16 16:32 500 MG Albuterol/ Ipratropium (Combivent Respimat Inh) 1 puffs QID PRN INH 07/16/16 17:00 08/15/16 16:59
[2016-07-17] MEDS: METOPROLOL SUCC 50MG EXT REL TAB PO SCH (21:15)
[2016-07-18 00:26] VITALS: BP 150/84; PULSE 96; TEMP 37.3; O2SAT 91
[2016-07-18 02:50] VITALS: BP 142/86; PULSE 96; TEMP 36.8; O2SAT 92
[2016-07-18 08:03] VITALS: BP 166/82; PULSE 88; TEMP 36.7; O2SAT 94
[2016-07-18] MEDS: BOOST BREEZE NUTRITION DRINK 1 BOX PO SCH ×2 (08:26→17:35)
[2016-07-18] MEDS: INSULIN ASPART 100 UNITS/ML 3 ML PEN SC SCH ×4 (08:27→21:00)
[2016-07-18] MEDS: FAMOTIDINE 20 MG TAB PO SCH (08:27)
[2016-07-18] MEDS: ASPIRIN 81 MG ECTAB PO SCH (08:28)
[2016-07-18] MEDS: ALLOPURINOL 300 MG TAB PO SCH (08:28)
[2016-07-18 08:29] LABS: BUN/CREATININE RATIO 12.8 (10-20); CALCIUM 9.4 mg/dl (8.5-10.1); CREATININE 5.8 mg/dl (0.60-1.20); POTASSIUM 3.2 mmol/L (3.5-5.1)
[2016-07-18] MEDS: NIFEdipine 30 MG CR TAB PO SCH (08:29)
[2016-07-18] MEDS: GUAIFENESIN 600 MG TABCR PO SCH ×2 (08:29→20:02)
[2016-07-18] MEDS: CLONIDINE HCL 0.1 MG TAB PO SCH ×2 (08:30→20:04)
[2016-07-18] MEDS: TIOTROPIUM BROMIDE 5 PUFF/90 MCG INH INH SCH (08:31)
--- NOTE | 2016-07-18 08:32 | Nephrology Progress Note ---
Nephrology Progress Note Date of Service: Jul 18, 2016. Subjective 70 yo female with hypertensive urgency and milly on ckd stage 4 with atn. pt with periodic bouts of delirium and has difficulty sleeping at night. still with grove and urinating well. appetite slowly improving. Objective Date Time Temp Pulse Resp B/P Pulse Ox O2 Delivery O2 Flow Rate FiO2 07/18/16 08:03 36.7 88 18 166/82 94 Room Air 07/18/16 04:00 Room Air 07/18/16 02:50 36.8 96 17 142/86 92 Room Air 07/18/16 00:26 37.3 96 18 150/84 91 Room Air 07/18/16 00:00 Room Air 07/17/16 20:00 Room Air 07/17/16 19:08 36.6 88 18 154/86 98 Nasal Cannula 2.0 07/17/16 16:00 Nasal Cannula 2.0 07/17/16 15:41 36.8 87 18 168/109 99 2.0 171/100 07/17/16 12:00 Nasal Cannula 2.0 07/17/16 11:14 36.9 89 18 133/87 99 Nasal Cannula 3.0 Physical Exam: General-aaox3 this morning, periodic bouts of delirium Eyes-no scleral icterus ENT-mmm Neck-supple Lungs-cta Heart-irregular Abdomen-bs+ s/nt/nd, +ventral hernia Extremities-no edema Neuro-nonfocal, periods of delirium Current Inpatient Medications Medications (Trade) Dose Ordered Sig/Nydia Route Start Time Stop Time Status Last Admin Dose Admin Nifedipine (Procardia Xl Tab) 90 mg QAM PO 07/05/16 09:00 08/04/16 08:59 07/17/16 08:22 90 MG Acetaminophen (Tylenol Tab) 650 mg Q4H PRN PO 07/04/16 02:15 08/03/16 02:14 07/17/16 15:50 650 MG Nitroglycerin (Nitrostat Tab) 0.4 mg UD PRN SL 07/04/16 02:15 08/03/16 02:14 Allopurinol (Zyloprim Tab) 450 mg DAILY PO 07/04/16 09:00 08/03/16 08:59 07/17/16 08:23 450 MG Famotidine (Pepcid Tab) 20 mg DAILY PO 07/04/16 09:00 08/03/16 08:59 07/17/16 08:22 20 MG Metoprolol Succinate (Toprol Xl Tab) 125 mg HS PO 07/04/16 21:00 08/03/16 20:59 07/17/16 21:15 125 MG Tiotropium [place] (Spiriva Handihaler Inhaler) 1 puff DAILY INH 07/04/16 09:00 08/03/16 08:59 07/15/16 08:03 1 PUFF Polyethylene (Miralax Powder Packet) 17 gm DAILY PRN PO 07/04/16 02:15 08/03/16 02:14 Clonidine HCl (Catapres Tab) 0.3 mg BID PO 07/04/16 09:00 08/03/16 08:59 07/17/16 21:17 0.3 MG Insulin Aspart (novoLOG ASPART) SLIDING SCALE If C... ACHS SC 07/04/16 07:00 08/03/16 06:59 07/14/16 20:43 1 UNITS Glucose (Glucose 40% Gel) 15-30 GRAMS 15 GRAMS... UD PRN PO 07/04/16 04:45 08/03/16 04:44 Glucose (Glucose Chew Tab) 4-8 Tablets 4 Tabl... UD PRN PO 07/04/16 04:45 08/03/16 04:44 Dextrose (Dextrose 50% 50ML Syringe) 25-50ML OF 50% DW IV FOR... UD PRN IV 07/04/16 04:45 08/03/16 04:44 Glucagon (Glucagon Inj) 1 mg UD PRN SQ 07/04/16 04:45 08/03/16 04:44 Hydralazine HCl (HydrALAZINE INJ) 10 mg Q6 PRN IV. 07/04/16 12:15 08/03/16 12:14 Bisacodyl (Dulcolax Tab) 5 mg BID PRN PO 07/05/16 11:30 08/04/16 11:29 Docusate Sodium (coLACE CAP) 100 mg BID PRN PO 07/05/16 21:00 08/04/16 20:59 07/07/16 08:27 100 MG Metoprolol Tartrate (Lopressor Iv) 5 mg Q6 PRN IV 07/11/16 18:00 08/10/16 17:59 Guaifenesin (Mucinex Contr Rel Tab) 600 mg Q12 PO 07/11/16 21:00 08/10/16 20:59 07/17/16 21:14 600 MG Guaifenesin (Robitussin Sugar Free Syrup) 100 mg Q6H PRN PO 07/11/16 15:00 08/10/16 14:59 07/13/16 12:26 100 MG Piperacillin Sod/ Tazobactam Sod 1 ea 1 ea UD PRN N/A 07/12/16 12:15 08/11/16 12:14 Piperacillin Sod/ Tazobactam Sod/ Dextrose (Zosyn Iv/D5 100ml) 120 ml @ 30 mls/hr Q12H IV 07/12/16 22:00 07/19/16 21:59 07/17/16 21:13 30 MLS/HR Aspirin (Ecotrin Tab) 81 mg QAM PO 07/13/16 09:00 08/12/16 08:59 07/15/16 08:05 81 MG Enteral Nutritional Formula (Boost Breeze Nutritional Drink) 1 box BIDM PO 07/13/16 16:45 08/12/16 16:44 07/17/16 16:25 1 BOX Levetiracetam (Keppra Tab) 1,000 mg HS PO 07/14/16 21:00 08/13/16 20:59 07/17/16 21:16 1,000 MG Levetiracetam (Keppra Tab) DAILY@1800 PO 07/14/16 18:00 08/13/16 17:59 07/16/16 16:32 500 MG Albuterol/ Ipratropium (Combivent Respimat Inh) 1 puffs QID PRN INH 07/16/16 17:00 08/15/16 16:59 Last 24 Hours Test 07/17/16 11:32 07/17/16 16:19 07/17/16 20:28 07/18/16 06:38 Bedside Glucose 128 mg/dl 110 mg/dl 163 mg/dl 124 mg/dl Test 07/18/16 07:30 Assessment & Plan MILLY/ATN-NOT ESRD. however still requiring dialysis and may eventually be labeled as esrd. urinating well though. still a possibility of renal recovery. for dialysis again today. will plan on grove removal today and allow to urinate on her own.
--- NOTE | 2016-07-18 10:41 | Psychiatric Progress Notes ---
Psychiatric Progress Note Date of Service Jul 18, 2016. Notes ID: Patient reviewed with liaison nurse. Interim progress reviewed. CC: "I think I'm going home today" HPI: denies issues over night other than sleep still disrupted, recognizes that her confusion has improved. ROS: fatigue as above, denies zhang or paranoia MSE: alert, tired but affect pleasant, thoughts organized, no SI/HI/zhang Imp: delirium resolved Plan: no additional psych recs at this time, psychiatrically stable for discharge to nursing facility
[2016-07-18 12:19] VITALS: BP 169/81; PULSE 80; TEMP 36.6; O2SAT 96
[2016-07-18] MEDS: PIPERACILL/TAZOBAC IV 4.5 GM in DEXTROSE 5% 100ML IV SCH ×2 (13:06→20:05)
--- NOTE | 2016-07-18 14:19 | Progress Note ---
Medicine Progress Note Date & Time of Visit: Jul 18, 2016 at 14:17. Subjective resting in bedside chair comfortable inquiring when she will be discharged denies dyspnea, cough, chest pain no other symptoms Objective Last 8 Hrs Date Time Temp Pulse Resp B/P Pulse Ox O2 Delivery O2 Flow Rate FiO2 07/18/16 12:19 36.6 80 19 169/81 96 Room Air 07/18/16 12:00 Room Air 07/18/16 08:03 36.7 88 18 166/82 94 Room Air 07/18/16 08:00 Room Air Physical Exam: General- oriented x 2, not in distress, no acc muscle use Neck- no JVD Lungs- clear breath sounds no rales/wheezes b/l Heart- normal rate, irregularly irregular rhythm; no murmurs Abdomen- normal bowel sounds, soft, nontender Extremities- no pretibial edema, no calf tenderness Neuro- alert, oriented x 2;no gross focal deficits Skin- warm & dry Laboratory Results: Last 24 Hours Test 07/17/16 16:19 07/17/16 20:28 07/18/16 06:38 07/18/16 07:30 Bedside Glucose 110 mg/dl 163 mg/dl 124 mg/dl Sodium Level 138 mmol/L Potassium Level 3.2 mmol/L Chloride Level 102 mmol/L Carbon Dioxide Level 21 mmol/L Anion Gap 15.0 mmol/L Blood Urea Nitrogen 74 mg/dl Creatinine 5.80 mg/dl Est Creatinine Clear Calc Drug Dose 9.2 ml/min Estimated GFR () 7.8 Estimated GFR (Non- 6.7 BUN/Creatinine Ratio 12.8 Random Glucose 119 mg/dl Calcium Level 9.4 mg/dl Test 07/18/16 11:15 Bedside Glucose 150 mg/dl Assessment & Plan 70 year old female with history of CAD s/p Stent, A fib off anticoagulation, CHF Diastolic Type, Recurrent CVA, Cerebellar Hemorrhage, DM, HTN, presenting with nausea/vomiting x few days. MILLY ON CKD-III -Likely volume depletion secondary to nausea/vomiting in setting of chronic lasix use -Baseline creatinine around 1.8, presented with 4.0 --> 5.60-->6.60 and thus started on dialysis on 07/06/16 -Started on dialysis on 07/06/16 - After 2 sessions, started with fluid removal on 07/08/16 - HD per Nephro will need further HD as outpatient appreciate the input ACUTE HYPOXIC RESPIRATORY FAILURE from CHF? in the setting ESRD possible Aspiration Pneumonia Pleural Effusion R>L - weaned off oxygen - on HD - speech therapy eval to r/o aspiration: mech soft diet Zosyn IV, Day 11/04 -Duonebs QID PRN - clinically improved EPISODES OF UNRESPONSIVENESS possible breakthrough seizures Keppra held 07/11 noted to be unresponsive to any stimuli 07/12/16 CT head: negative Brain MRI: (+) acute subacute infarct left parietal lobe - Keppra 500mg after HD Keppra 1g daily - Aspirin resumed - no further episodes - appreciate Neurology eval HX OF RECURRENT CVA SEIZURE (Recent ICH, Hx of cerebral amyloid angiopathy as per records, Cerebellar infarct per recent CT scan last admission) This admission- stable small hemorrhage old with no new changes Brain MRI: (+) acute subacute infarct left parietal lobe - Keppra 500mg after HD Keppra 1g daily - Aspirin resumed - appreciate Neurology eval HYPERTENSIVE URGENCY Secondary to not taking meds due to nausea/vomiting. -Continue with Clonidine 0.3 mg BID, Nifedipine 90 mg daily, Metoprolol 125 mg ( home meds), IV Hydralazine PRN. Held lasix--> on dialysis -Monitor DELIRIUM =Resolved from Dysequilibrium syndrome ? with initiation of dialysis. -CT head repeat- No change, stable hemorrhage, ABGs-reviewed- respiratory alkalosis, CXR- congestion + UTI-E COLI UA +VE, CT - left perinephric stranding. -Urine c/S- E coli -S/P IV Rocephin (Day 3)--> Ciprofloxacin BID (Day 11/04) S/P NAUSEA/VOMITING - Resolved Possibly acute gastroenteritis vs related to UTI/Possible pyelo with ? left perinephric stranding on ct scan ? CAD S/P STENTING -Stable CHRONIC DIASTOLIC CHF -Per recent Echo EF of 50-55%. -lasix on hold -Now on dialysis ATRIAL FIBRILLATION - on Metoprolol, Aspirin - anticoagulation held due to recent IC bleed DEPRESSION, MILD - Depressed due to personal stressors. -Psychiatry consult placed- appreciate inputs. No medications recommended at this time COPD as per records -Stable with no signs of exacerbation -Monitor DM2, well controlled as of recent HgA1c recent hba1c 5.9 -Not on meds -ISS, Accuchecks NUTRITION Mental status back to AAOX2 , thus taking PO DVT PROPHYLAXIS scds re: hemorrhage DISPOSITION pending case management on board Current Inpatient Medications: Current Inpatient Medications Medications (Trade) Dose Ordered Sig/Nydia Route Start Time Stop Time Status Last Admin Dose Admin Nifedipine (Procardia Xl Tab) 90 mg QAM PO 07/05/16 09:00 08/04/16 08:59 07/18/16 08:29 90 MG Acetaminophen (Tylenol Tab) 650 mg Q4H PRN PO 07/04/16 02:15 08/03/16 02:14 07/17/16 15:50 650 MG Nitroglycerin (Nitrostat Tab) 0.4 mg UD PRN SL 07/04/16 02:15 08/03/16 02:14 Allopurinol (Zyloprim Tab) 450 mg DAILY PO 07/04/16 09:00 08/03/16 08:59 07/18/16 08:28 450 MG Famotidine (Pepcid Tab) 20 mg DAILY PO 07/04/16 09:00 08/03/16 08:59 07/18/16 08:27 20 MG Metoprolol Succinate (Toprol Xl Tab) 125 mg HS PO 07/04/16 21:00 08/03/16 20:59 07/17/16 21:15 125 MG Tiotropium [place] (Spiriva Handihaler Inhaler) 1 puff DAILY INH 07/04/16 09:00 08/03/16 08:59 07/18/16 08:31 1 PUFF Polyethylene (Miralax Powder Packet) 17 gm DAILY PRN PO 07/04/16 02:15 08/03/16 02:14 Clonidine HCl (Catapres Tab) 0.3 mg BID PO 07/04/16 09:00 08/03/16 08:59 07/18/16 08:30 0.3 MG Insulin Aspart (novoLOG ASPART) SLIDING SCALE If C... ACHS SC 07/04/16 07:00 08/03/16 06:59 07/14/16 20:43 1 UNITS Glucose (Glucose 40% Gel) 15-30 GRAMS 15 GRAMS... UD PRN PO 07/04/16 04:45 08/03/16 04:44 Glucose (Glucose Chew Tab) 4-8 Tablets 4 Tabl... UD PRN PO 07/04/16 04:45 08/03/16 04:44 Dextrose (Dextrose 50% 50ML Syringe) 25-50ML OF 50% DW IV FOR... UD PRN IV 07/04/16 04:45 08/03/16 04:44 Glucagon (Glucagon Inj) 1 mg UD PRN SQ 07/04/16 04:45 08/03/16 04:44 Hydralazine HCl (HydrALAZINE INJ) 10 mg Q6 PRN IV. 07/04/16 12:15 08/03/16 12:14 Bisacodyl (Dulcolax Tab) 5 mg BID PRN PO 07/05/16 11:30 08/04/16 11:29 Docusate Sodium (coLACE CAP) 100 mg BID PRN PO 07/05/16 21:00 08/04/16 20:59 07/07/16 08:27 100 MG Metoprolol Tartrate (Lopressor Iv) 5 mg Q6 PRN IV 07/11/16 18:00 08/10/16 17:59 Guaifenesin (Mucinex Contr Rel Tab) 600 mg Q12 PO 07/11/16 21:00 08/10/16 20:59 07/18/16 08:29 600 MG Guaifenesin (Robitussin Sugar Free Syrup) 100 mg Q6H PRN PO 07/11/16 15:00 08/10/16 14:59 07/13/16 12:26 100 MG Piperacillin Sod/ Tazobactam Sod 1 ea 1 ea UD PRN N/A 07/12/16 12:15 08/11/16 12:14 Piperacillin Sod/ Tazobactam Sod/ Dextrose (Zosyn Iv/D5 100ml) 120 ml @ 30 mls/hr Q12H IV 07/12/16 22:00 07/19/16 21:59 07/18/16 13:06 30 MLS/HR Aspirin (Ecotrin Tab) 81 mg QAM PO 07/13/16 09:00 08/12/16 08:59 07/18/16 08:28 81 MG Enteral Nutritional Formula (Boost Breeze Nutritional Drink) 1 box BIDM PO 07/13/16 16:45 08/12/16 16:44 07/17/16 16:25 1 BOX Levetiracetam (Keppra Tab) 1,000 mg HS PO 07/14/16 21:00 08/13/16 20:59 07/17/16 21:16 1,000 MG Levetiracetam (Keppra Tab) DAILY@1800 PO 07/14/16 18:00 08/13/16 17:59 07/16/16 16:32 500 MG Albuterol/ Ipratropium (Combivent Respimat Inh) 1 puffs QID PRN INH 07/16/16 17:00 08/15/16 16:59
[2016-07-18 15:35] VITALS: BP 152/98; PULSE 81; TEMP 36.8; O2SAT 98
[2016-07-18] MEDS: LEVETIRACETAM 500 MG TAB PO SCH ×2 (17:38→20:04)
[2016-07-18 19:41] VITALS: BP 159/89; PULSE 96; TEMP 36.7; O2SAT 93
[2016-07-18] MEDS: METOPROLOL SUCC 50MG EXT REL TAB PO SCH (20:05)
[2016-07-19] VITALS (20 sets, daily range): BP systolic 115–178; BP diastolic 73–114; PULSE 81–96; TEMP 36.5–37.3; O2SAT 93–98
--- NOTE | 2016-07-19 06:57 | Nephrology Progress Note ---
Nephrology Progress Note Date of Service: Jul 19, 2016. Subjective 70 yo female with hypertensive urgency and milly on ckd stage 4 with atn. pt with periodic bouts of delirium however this morning appears alert and answering questions appropriately. pt says she is ready to go to the half-way and do dialysis as an outpt. Objective Date Time Temp Pulse Resp B/P Pulse Ox O2 Delivery O2 Flow Rate FiO2 07/19/16 04:00 Room Air 07/19/16 04:00 36.6 82 18 148/73 93 Room Air 07/19/16 00:00 37.0 83 20 152/74 95 Room Air 07/19/16 00:00 Room Air 07/18/16 20:00 Room Air 07/18/16 19:41 36.7 96 18 159/89 93 07/18/16 16:00 Room Air 07/18/16 15:35 36.8 81 18 152/98 98 Room Air 07/18/16 12:19 36.6 80 19 169/81 96 Room Air 07/18/16 12:00 Room Air 07/18/16 08:03 36.7 88 18 166/82 94 Room Air 07/18/16 08:00 Room Air Physical Exam: General-aaox3 Eyes-no scleral icterus ENT-mmm Neck-supple Lungs-clear Heart-irregular Abdomen-bs+ s/nt/nd, +ventral hernia Extremities-no edema Neuro-nonfocal Current Inpatient Medications Medications (Trade) Dose Ordered Sig/Nydia Route Start Time Stop Time Status Last Admin Dose Admin Nifedipine (Procardia Xl Tab) 90 mg QAM PO 07/05/16 09:00 08/04/16 08:59 07/18/16 08:29 90 MG Acetaminophen (Tylenol Tab) 650 mg Q4H PRN PO 07/04/16 02:15 08/03/16 02:14 07/17/16 15:50 650 MG Nitroglycerin (Nitrostat Tab) 0.4 mg UD PRN SL 07/04/16 02:15 08/03/16 02:14 Allopurinol (Zyloprim Tab) 450 mg DAILY PO 07/04/16 09:00 08/03/16 08:59 07/18/16 08:28 450 MG Famotidine (Pepcid Tab) 20 mg DAILY PO 07/04/16 09:00 08/03/16 08:59 07/18/16 08:27 20 MG Metoprolol Succinate (Toprol Xl Tab) 125 mg HS PO 07/04/16 21:00 08/03/16 20:59 07/18/16 20:05 125 MG Tiotropium [place] (Spiriva Handihaler Inhaler) 1 puff DAILY INH 07/04/16 09:00 08/03/16 08:59 07/18/16 08:31 1 PUFF Polyethylene (Miralax Powder Packet) 17 gm DAILY PRN PO 07/04/16 02:15 08/03/16 02:14 Clonidine HCl (Catapres Tab) 0.3 mg BID PO 07/04/16 09:00 08/03/16 08:59 07/18/16 20:04 0.3 MG Insulin Aspart (novoLOG ASPART) SLIDING SCALE If C... ACHS SC 07/04/16 07:00 08/03/16 06:59 07/14/16 20:43 1 UNITS Glucose (Glucose 40% Gel) 15-30 GRAMS 15 GRAMS... UD PRN PO 07/04/16 04:45 08/03/16 04:44 Glucose (Glucose Chew Tab) 4-8 Tablets 4 Tabl... UD PRN PO 07/04/16 04:45 08/03/16 04:44 Dextrose (Dextrose 50% 50ML Syringe) 25-50ML OF 50% DW IV FOR... UD PRN IV 07/04/16 04:45 08/03/16 04:44 Glucagon (Glucagon Inj) 1 mg UD PRN SQ 07/04/16 04:45 08/03/16 04:44 Hydralazine HCl (HydrALAZINE INJ) 10 mg Q6 PRN IV. 07/04/16 12:15 08/03/16 12:14 Bisacodyl (Dulcolax Tab) 5 mg BID PRN PO 07/05/16 11:30 08/04/16 11:29 Docusate Sodium (coLACE CAP) 100 mg BID PRN PO 07/05/16 21:00 08/04/16 20:59 07/07/16 08:27 100 MG Metoprolol Tartrate (Lopressor Iv) 5 mg Q6 PRN IV 07/11/16 18:00 08/10/16 17:59 Guaifenesin (Mucinex Contr Rel Tab) 600 mg Q12 PO 07/11/16 21:00 08/10/16 20:59 07/18/16 08:29 600 MG Guaifenesin (Robitussin Sugar Free Syrup) 100 mg Q6H PRN PO 07/11/16 15:00 08/10/16 14:59 07/13/16 12:26 100 MG Piperacillin Sod/ Tazobactam Sod 1 ea 1 ea UD PRN N/A 07/12/16 12:15 08/11/16 12:14 Piperacillin Sod/ Tazobactam Sod/ Dextrose (Zosyn Iv/D5 100ml) 120 ml @ 30 mls/hr Q12H IV 07/12/16 22:00 07/19/16 21:59 07/18/16 20:05 30 MLS/HR Aspirin (Ecotrin Tab) 81 mg QAM PO 07/13/16 09:00 08/12/16 08:59 07/18/16 08:28 81 MG Enteral Nutritional Formula (Boost Breeze Nutritional Drink) 1 box BIDM PO 07/13/16 16:45 08/12/16 16:44 07/17/16 16:25 1 BOX Levetiracetam (Keppra Tab) 1,000 mg HS PO 07/14/16 21:00 08/13/16 20:59 07/18/16 20:04 1,000 MG Levetiracetam (Keppra Tab) DAILY@1800 PO 07/14/16 18:00 08/13/16 17:59 07/16/16 16:32 500 MG Albuterol/ Ipratropium (Combivent Respimat Inh) 1 puffs QID PRN INH 07/16/16 17:00 08/15/16 16:59 Last 24 Hours Test 07/18/16 07:30 07/18/16 11:15 07/18/16 16:23 07/18/16 20:42 Sodium Level 138 mmol/L Potassium Level 3.2 mmol/L Chloride Level 102 mmol/L Carbon Dioxide Level 21 mmol/L Anion Gap 15.0 mmol/L Blood Urea Nitrogen 74 mg/dl Creatinine 5.80 mg/dl Est Creatinine Clear Calc Drug Dose 9.2 ml/min Estimated GFR () 7.8 Estimated GFR (Non- 6.7 BUN/Creatinine Ratio 12.8 Random Glucose 119 mg/dl Calcium Level 9.4 mg/dl Bedside Glucose 150 mg/dl 120 mg/dl 167 mg/dl Test 07/19/16 04:44 07/19/16 06:37 Bedside Glucose 120 mg/dl Assessment & Plan MILLY/ATN-NOT ESRD. Per medicare guidelines which were effective may 01, outpt dialysis unit should be ok accepting patients with milly. after 90 days, a decision needs to be made whether they are acute or chronic. For now, plan on dialysis today as we wait for dialysis unit to accept the patient.
[2016-07-19] MEDS: INSULIN ASPART 100 UNITS/ML 3 ML PEN SC SCH ×4 (07:00→20:39)
[2016-07-19] MEDS: TIOTROPIUM BROMIDE 5 PUFF/90 MCG INH INH SCH (07:49)
[2016-07-19 08:07] LABS: BUN/CREATININE RATIO 12.9 (10-20); CALCIUM 9.3 mg/dl (8.5-10.1); CREATININE 6.3 mg/dl (0.60-1.20); POTASSIUM 3.4 mmol/L (3.5-5.1)
[2016-07-19] MEDS: CLONIDINE HCL 0.1 MG TAB PO SCH ×2 (08:19→20:38)
[2016-07-19] MEDS: ASPIRIN 81 MG ECTAB PO SCH (08:19)
[2016-07-19] MEDS: ALLOPURINOL 300 MG TAB PO SCH (08:20)
[2016-07-19] MEDS: FAMOTIDINE 20 MG TAB PO SCH (08:20)
[2016-07-19] MEDS: NIFEdipine 30 MG CR TAB PO SCH (08:21)
[2016-07-19] MEDS: GUAIFENESIN 600 MG TABCR PO SCH ×2 (08:21→20:39)
[2016-07-19] MEDS: BOOST BREEZE NUTRITION DRINK 1 BOX PO SCH ×2 (08:22→17:42)
[2016-07-19] MEDS: PIPERACILL/TAZOBAC IV 4.5 GM in DEXTROSE 5% 100ML IV SCH (09:59)
--- NOTE | 2016-07-19 16:33 | Progress Note ---
Internal Med Progress Note Date of Service: Jul 19, 2016. Provider Documentation: SUBJECTIVE: Patient is frustrated as wants to be discharged Denies any complaints- No SOB, Cough, fever, chills Tolerating mechanical soft diet and wants more. OBJECTIVE : Vital Signs-as noted below Exam: General-AAOX2, not in distress ENT-normal hearing Lungs-AEBE decreased, few rales Heart- S1 and S2 heard, regular rate and rhythm, no murmurs. Tunneled line + Abdomen-soft , distended with umbilical hernia +, BS + Extremities-Trace edema- improved significantly Lab data as noted below. ASSESSMENT & PLAN: ASSESSMENT & PLAN : 70 year old female with history of CAD s/p Stent, A fib off anticoagulation, CHF Diastolic Type, Recurrent CVA, Cerebellar Hemorrhage, DM, HTN, presenting with nausea/vomiting x few days. MILLY ON CKD-III -Likely volume depletion secondary to nausea/vomiting in setting of chronic lasix use -Baseline creatinine around 1.8, presented with 4.0 --> 5.60-->6.60 and thus started on dialysis on 07/06/16 -Started on dialysis on 07/06/16 - After 2 sessions, started with fluid removal on 07/08/16 - HD per Nephro- will need further HD as outpatient ACUTE HYPOXIC RESPIRATORY FAILURE- Resolved from CHF? in the setting ESRD/ possible Aspiration Pneumonia/ Pleural Effusion R >L - weaned off oxygen - S/P IV Zosyn - completed course for 7 days - on HD - Speech therapy eval to r/o aspiration: [facility] soft diet recommended EPISODES OF UNRESPONSIVENESS Possible breakthrough seizures -Keppra held 07/11- noted to be unresponsive to any stimuli 07/12/16. Restarted Keppra -Work up- CT head: negative; Brain MRI: (+) acute subacute infarct left parietal lobe -Keppra 500mg after HD and 1 gram daily -Aspirin resumed. -Appreciate neurology inputs HX OF RECURRENT CVA (Recent ICH, Hx of cerebral amyloid angiopathy as per records, Cerebellar infarct per recent CT scan last admission) This admission- stable small hemorrhage old with no new changes Brain MRI: (+) acute subacute infarct left parietal lobe -Keppra 500mg after HD/ Keppra 1g daily -Aspirin resumed -Appreciate Neurology eval HYPERTENSIVE URGENCY Secondary to not taking meds due to nausea/vomiting. -Continue with Clonidine 0.3 mg BID, Nifedipine 90 mg daily, Metoprolol 125 mg ( home meds), IV Hydralazine PRN. Held lasix--> on dialysis -Monitor DELIRIUM =Resolved from Dysequilibrium syndrome ? with initiation of dialysis. -CT head repeat- No change, stable hemorrhage, ABGs-reviewed- respiratory alkalosis, CXR- congestion + UTI-E COLI UA +VE, CT - left perinephric stranding. -Urine c/S- E coli -S/P IV Rocephin (Day 3)--> Ciprofloxacin BID (Day 11/04)- completed course S/P NAUSEA/VOMITING - Resolved Possibly acute gastroenteritis vs related to UTI/Possible pyelo with ? left perinephric stranding on ct scan ? CAD S/P STENTING -Stable CHRONIC DIASTOLIC CHF -Per recent Echo EF of 50-55%. -lasix on hold -Now on dialysis ATRIAL FIBRILLATION - on Metoprolol, Aspirin - anticoagulation held due to recent IC bleed DEPRESSION, MILD - Depressed due to personal stressors. -Psychiatry consult placed- appreciate inputs. No medications recommended at this time COPD as per records -Stable with no signs of exacerbation -Monitor DM2, well controlled as of recent HgA1c recent hba1c 5.9 -Not on meds -ISS, Accuchecks DVT PROPHYLAXIS scds re: hemorrhage DISPOSITION OKay to discharge once bed available at [facility] Need to set up outpatient dialysis Awaiting placement Vital Signs: Date Time Temp Pulse Resp B/P Pulse Ox O2 Delivery O2 Flow Rate FiO2 07/19/16 17:40 36.8 93 166/95 07/19/16 16:30 36.9 89 20 167/94 98 Room Air 07/19/16 16:00 Room Air 07/19/16 15:00 96 148/97 07/19/16 14:45 92 148/97 07/19/16 14:30 95 161/96 07/19/16 14:15 92 151/99 07/19/16 14:00 91 156/90 07/19/16 13:45 84 162/99 07/19/16 13:30 82 159/87 07/19/16 13:15 82 159/87 07/19/16 13:15 36.5 157/95 07/19/16 13:00 81 147/91 07/19/16 12:45 81 148/88 07/19/16 12:30 81 140/93 07/19/16 12:00 Room Air 07/19/16 11:05 96 07/19/16 11:00 36.9 90 18 144/81 95 Room Air 07/19/16 08:12 36.8 96 19 154/81 98 Room Air 07/19/16 08:00 Room Air 07/19/16 08:00 Room Air 07/19/16 04:00 Room Air 07/19/16 04:00 36.6 82 18 148/73 93 Room Air 07/19/16 00:00 37.0 83 20 152/74 95 Room Air 07/19/16 00:00 Room Air 07/18/16 20:00 Room Air 07/18/16 19:41 36.7 96 18 159/89 93 Lab Results: Results Past 24 Hours Test 07/18/16 20:42 07/19/16 06:37 07/19/16 07:00 07/19/16 10:49 Range/Units Bedside Glucose 167 120 241 70-90 mg/dl Sodium Level 135 136-145 mmol/L Potassium Level 3.4 3.5-5.1 mmol/L Chloride Level 100 98-107 mmol/L Carbon Dioxide Level 19 21-32 mmol/L Anion Gap 16.0 3-11 mmol/L Blood Urea Nitrogen 82 7-18 mg/dl Creatinine 6.30 0.60-1.20 mg/dl Est Creatinine Clear Calc Drug Dose 8.5 ml/min Estimated GFR () 7.0 Estimated GFR (Non- 6.1 BUN/Creatinine Ratio 12.9 10-20 Random Glucose 120 70-99 mg/dl Calcium Level 9.3 8.5-10.1 mg/dl Test 07/19/16 15:58 07/19/16 16:22 Range/Units Bedside Glucose 121 93 70-90 mg/dl
[2016-07-19] MEDS: LEVETIRACETAM 500 MG TAB PO SCH ×2 (17:42→20:39)
[2016-07-19] MEDS: METOPROLOL SUCC 50MG EXT REL TAB PO SCH (20:39)
[2016-07-19] MEDS: ACETAMINOPHEN 325 MG TAB PO PRN (20:54)
[2016-07-20 04:20] VITALS: BP 172/109; PULSE 81; TEMP 36.3; O2SAT 99
[2016-07-20] MEDS: INSULIN ASPART 100 UNITS/ML 3 ML PEN SC SCH ×3 (07:00→16:15)
[2016-07-20] MEDS: CLONIDINE HCL 0.1 MG TAB PO SCH (07:50)
[2016-07-20] MEDS: GUAIFENESIN 600 MG TABCR PO SCH (07:51)
[2016-07-20] MEDS: ALLOPURINOL 300 MG TAB PO SCH (07:51)
[2016-07-20] MEDS: FAMOTIDINE 20 MG TAB PO SCH (07:51)
[2016-07-20] MEDS: BOOST BREEZE NUTRITION DRINK 1 BOX PO SCH (07:51)
[2016-07-20] MEDS: ASPIRIN 81 MG ECTAB PO SCH (07:51)
[2016-07-20 09:12] VITALS: BP 132/81; PULSE 90; TEMP 36.4; O2SAT 98
--- NOTE | 2016-07-20 09:15 | Nephrology Progress Note ---
Nephrology Progress Note Date of Service: Jul 20, 2016. Subjective 70 yo female with hypertensive urgency and milly on ckd stage 4 with atn. pt with periodic bouts of delirium. pt oob to chair. pt is frustrated that she is still in the hospital. working on having outpt dialysis unit accept the patient. Objective Date Time Temp Pulse Resp B/P Pulse Ox O2 Delivery O2 Flow Rate FiO2 07/20/16 04:40 Room Air 07/20/16 04:20 36.3 81 172/109 99 Room Air 07/20/16 00:27 Room Air 07/19/16 23:55 36.5 88 18 115/84 97 Room Air 07/19/16 20:45 Room Air 07/19/16 19:11 37.3 96 18 159/114 96 178/109 07/19/16 17:40 36.8 93 166/95 07/19/16 16:30 36.9 89 20 167/94 98 Room Air 07/19/16 16:00 Room Air 07/19/16 15:00 96 148/97 07/19/16 14:45 92 148/97 07/19/16 14:30 95 161/96 07/19/16 14:15 92 151/99 07/19/16 14:00 91 156/90 07/19/16 13:45 84 162/99 07/19/16 13:30 82 159/87 07/19/16 13:15 82 159/87 07/19/16 13:15 36.5 157/95 07/19/16 13:00 81 147/91 07/19/16 12:45 81 148/88 07/19/16 12:30 81 140/93 07/19/16 12:00 Room Air 07/19/16 11:05 96 07/19/16 11:00 36.9 90 18 144/81 95 Room Air Physical Exam: General-aaox3 Eyes-no scleral icterus ENT-mmm Neck-supple Lungs-cta Heart-irregular Abdomen-bs+ s/nt/nd, +ventral hernia Extremities-no edema Neuro-nonfocal Current Inpatient Medications Medications (Trade) Dose Ordered Sig/Nydia Route Start Time Stop Time Status Last Admin Dose Admin Acetaminophen (Tylenol Tab) 650 mg Q4H PRN PO 07/04/16 02:15 08/03/16 02:14 07/19/16 20:54 650 MG Allopurinol (Zyloprim Tab) 450 mg DAILY PO 07/04/16 09:00 08/03/16 08:59 07/20/16 07:51 450 MG Famotidine (Pepcid Tab) 20 mg DAILY PO 07/04/16 09:00 08/03/16 08:59 07/19/16 08:20 20 MG Metoprolol Succinate (Toprol Xl Tab) 125 mg HS PO 07/04/16 21:00 08/03/16 20:59 07/19/16 20:39 125 MG Clonidine HCl (Catapres Tab) 0.3 mg BID PO 07/04/16 09:00 08/03/16 08:59 07/20/16 07:50 0.3 MG Insulin Aspart (novoLOG ASPART) SLIDING SCALE If C... ACHS SC 07/04/16 07:00 08/03/16 06:59 07/19/16 12:08 2 UNITS Glucose (Glucose 40% Gel) 15-30 GRAMS 15 GRAMS... UD PRN PO 07/04/16 04:45 08/03/16 04:44 Glucose (Glucose Chew Tab) 4-8 Tablets 4 Tabl... UD PRN PO 07/04/16 04:45 08/03/16 04:44 Dextrose (Dextrose 50% 50ML Syringe) 25-50ML OF 50% DW IV FOR... UD PRN IV 07/04/16 04:45 08/03/16 04:44 Glucagon (Glucagon Inj) 1 mg UD PRN SQ 07/04/16 04:45 08/03/16 04:44 Hydralazine HCl (HydrALAZINE INJ) 10 mg Q6 PRN IV. 07/04/16 12:15 08/03/16 12:14 Bisacodyl (Dulcolax Tab) 5 mg BID PRN PO 07/05/16 11:30 08/04/16 11:29 Docusate Sodium (coLACE CAP) 100 mg BID PRN PO 07/05/16 21:00 08/04/16 20:59 07/07/16 08:27 100 MG Guaifenesin (Mucinex Contr Rel Tab) 600 mg Q12 PO 07/11/16 21:00 08/10/16 20:59 07/19/16 20:39 600 MG Guaifenesin (Robitussin Sugar Free Syrup) 100 mg Q6H PRN PO 07/11/16 15:00 08/10/16 14:59 07/13/16 12:26 100 MG Aspirin (Ecotrin Tab) 81 mg QAM PO 07/13/16 09:00 08/12/16 08:59 07/19/16 08:19 81 MG Enteral Nutritional Formula (Boost Breeze Nutritional Drink) 1 box BIDM PO 07/13/16 16:45 08/12/16 16:44 07/20/16 07:51 1 BOX Levetiracetam (Keppra Tab) 1,000 mg HS PO 07/14/16 21:00 08/13/16 20:59 07/19/16 20:39 1,000 MG Levetiracetam (Keppra Tab) DAILY@1800 PO 07/14/16 18:00 08/13/16 17:59 07/19/16 17:42 500 MG Albuterol/ Ipratropium (Combivent Respimat Inh) 1 puffs QID PRN INH 07/16/16 17:00 08/15/16 16:59 Last 24 Hours Test 07/19/16 10:49 07/19/16 15:58 07/19/16 16:22 07/19/16 20:28 Bedside Glucose 241 mg/dl 121 mg/dl 93 mg/dl 135 mg/dl Test 07/20/16 07:45 Bedside Glucose 111 mg/dl Assessment & Plan MILLY/ATN-NOT ESRD. plan on diaysis again tomorrow hopefully at outpt unit if accepted and able to arrange for transportation. HTN: bp was high this morning. will see if bp has improved after the morning medications. may need meds adjusted.
--- NOTE | 2016-07-20 10:51 | Progress Note ---
Internal Med Progress Note Date of Service: Jul 20, 2016. Provider Documentation: SUBJECTIVE: Patient is frustrated as wants to be discharged. Denies any complaints- No SOB, Cough, fever, chills Tolerating mechanical soft diet and wants more. OBJECTIVE : Vital Signs-as noted below Exam: General-AAOX3, not in distress ENT-normal hearing Lungs-AEBE decreased, few rales Heart- S1 and S2 heard, regular rate and rhythm, no murmurs. Tunneled line + Abdomen-soft , distended with umbilical hernia +, BS + Extremities-Trace edema- improved significantly Lab data as noted below. ASSESSMENT & PLAN: ASSESSMENT & PLAN : 70 year old female with history of CAD s/p Stent, A fib off anticoagulation, CHF Diastolic Type, Recurrent CVA, Cerebellar Hemorrhage, DM, HTN, presenting with nausea/vomiting x few days. MILLY ON CKD-III -Likely volume depletion secondary to nausea/vomiting in setting of chronic lasix use -Baseline creatinine around 1.8, presented with 4.0 --> 5.60-->6.60 and thus started on dialysis on 07/06/16 -Started on dialysis on 07/06/16 - After 2 sessions, started with fluid removal on 07/08/16 - HD per Nephro- will need further HD as outpatient ACUTE HYPOXIC RESPIRATORY FAILURE- Resolved from CHF? in the setting ESRD/ possible Aspiration Pneumonia/ Pleural Effusion R >L - weaned off oxygen - S/P IV Zosyn - completed course for 7 days - on HD - Speech therapy eval to r/o aspiration: [facility] soft diet recommended EPISODES OF UNRESPONSIVENESS Possible breakthrough seizures -Keppra held 07/11- noted to be unresponsive to any stimuli 07/12/16. Restarted Keppra -Work up- CT head: negative; Brain MRI: (+) acute subacute infarct left parietal lobe -Keppra 500mg after HD and 1 gram daily -Aspirin resumed. -Appreciate neurology inputs HX OF RECURRENT CVA (Recent ICH, Hx of cerebral amyloid angiopathy as per records, Cerebellar infarct per recent CT scan last admission) This admission- stable small hemorrhage old with no new changes Brain MRI: (+) acute subacute infarct left parietal lobe -Keppra 500mg after HD/ Keppra 1g daily -Aspirin resumed -Appreciate Neurology eval HYPERTENSIVE URGENCY Secondary to not taking meds due to nausea/vomiting. -Continue with Clonidine 0.3 mg BID, Nifedipine 90 mg daily, Metoprolol 125 mg ( home meds), IV Hydralazine PRN. Held lasix--> on dialysis -Monitor DELIRIUM =Resolved from Dysequilibrium syndrome ? with initiation of dialysis. -CT head repeat- No change, stable hemorrhage, ABGs-reviewed- respiratory alkalosis, CXR- congestion + UTI-E COLI UA +VE, CT - left perinephric stranding. -Urine c/S- E coli -S/P IV Rocephin (Day 3)--> Ciprofloxacin BID (Day 11/04)- completed course S/P NAUSEA/VOMITING - Resolved Possibly acute gastroenteritis vs related to UTI/Possible pyelo with ? left perinephric stranding on ct scan ? CAD S/P STENTING -Stable CHRONIC DIASTOLIC CHF -Per recent Echo EF of 50-55%. -lasix on hold -Now on dialysis ATRIAL FIBRILLATION - on Metoprolol, Aspirin - anticoagulation held due to recent IC bleed DEPRESSION, MILD - Depressed due to personal stressors. -Psychiatry consult placed- appreciate inputs. No medications recommended at this time COPD as per records -Stable with no signs of exacerbation -Monitor DM2, well controlled as of recent HgA1c recent hba1c 5.9 -Not on meds -ISS, Accuchecks NUTRITION Aspiration + so speech evaluated- mechanical soft diet. But doing much better today, so will ask for re - evaluation. DVT PROPHYLAXIS scds re: hemorrhage DISPOSITION OKay to discharge once bed available at [facility] Need to set up outpatient dialysis Awaiting placement Vital Signs: Date Time Temp Pulse Resp B/P Pulse Ox O2 Delivery O2 Flow Rate FiO2 07/20/16 09:12 36.4 90 20 132/81 98 Room Air 07/20/16 04:40 Room Air 07/20/16 04:20 36.3 81 172/109 99 Room Air 07/20/16 00:27 Room Air 07/19/16 23:55 36.5 88 18 115/84 97 Room Air 07/19/16 20:45 Room Air 07/19/16 19:11 37.3 96 18 159/114 96 178/109 07/19/16 17:40 36.8 93 166/95 07/19/16 16:30 36.9 89 20 167/94 98 Room Air 07/19/16 16:00 Room Air 07/19/16 15:00 96 148/97 07/19/16 14:45 92 148/97 07/19/16 14:30 95 161/96 07/19/16 14:15 92 151/99 07/19/16 14:00 91 156/90 07/19/16 13:45 84 162/99 07/19/16 13:30 82 159/87 07/19/16 13:15 82 159/87 07/19/16 13:15 36.5 157/95 07/19/16 13:00 81 147/91 07/19/16 12:45 81 148/88 07/19/16 12:30 81 140/93 07/19/16 12:00 Room Air 07/19/16 11:05 96 07/19/16 11:00 36.9 90 18 144/81 95 Room Air Lab Results: Results Past 24 Hours Test 07/19/16 10:49 07/19/16 15:58 07/19/16 16:22 07/19/16 20:28 Range/Units Bedside Glucose 241 121 93 135 70-90 mg/dl Test 07/20/16 07:45 Range/Units Bedside Glucose 111 70-90 mg/dl
[2016-07-20 11:15] VITALS: BP 144/96; PULSE 87; TEMP 36.4; O2SAT 99
[2016-07-20] MEDS: ACETAMINOPHEN 325 MG TAB PO PRN (13:07)
[2016-07-20 14:13] VITALS: BP 132/70; PULSE 92; TEMP 36.4; O2SAT 97
[2016-07-20] MEDS ORDERED: ASPEC81 PO (15:14)
[2016-07-20] MEDS ORDERED: LEVE500T PO (15:14)
[2016-07-20] MEDS ORDERED: LEVE500T13 PO (15:14)
--- NOTE | 2016-07-20 15:18 | Discharge Instructions ---
Discharge Instructions Date of Service Jul 20, 2016. Admission Reason for Admission: Encephalopathy Discharge Discharge Diagnosis / Problem: 1. MILLY ON CKD III 2. Delirium 3. HTN, uncontrolled Discharge Goals Goal(s): Increase independence, Improve disease control, Diagnostic testing, Therapeutic intervention, Prevent Disease Progression Activity Recommendations Activity Limitations: resume your previous activity (as tolerated; PT/OT recommended) . Instructions / Follow-Up Instructions / Follow-Up MEDICATION CHANGES: 1. New medication: Aspirin 81 mg daily with stroke 2. Discontinued Nifedipine 90 mg daily with initiation of dialysis and better control of BP with other BP medications 3. Keppra dosing and schedule changes: 1000 mg q HS and 500 mg extra dose with dialysis on dialysis days DIETARY INSTRUCTIONS 1. Regular diet with thin liquids 2. Aspiration precautions, straws OK. Fully upright for meals, and for 30-60 minutes after meals are completed. Only feed when awake/alert. 3. Alternate solids and liquids. Small bites. Rest breaks when needed. FOLLOW UP With Dr Cerda (PCP) on 07/25/16 at 12:30 PM With neurology, Saige August PAC in 3-4 weeks With nephrology, Dr Wallace as per schedule for routine dialysis With cardiology as per schedule MONITOR: 1. BP monitoring with changes as above 2. Monitor for bleeding as Aspirin re started with hx of ICH in past Current Hospital Diet Patient's current hospital diet: Diabetes Type 2 Diet, Renal Diet Discharge Diet Recommended Diet: AHA Diet (Heart Healthy), Low Sodium Diet (2gm Na), Diabetes Type 2 Diet ( PER INSTRUCTIONS), Renal Diet Procedures Procedures Performed: Insertion of Perm Catheter, Right Internal Jugular Approach Ultrasound Localization of RIght Internal Jugular Vein FLuoroscopy for Positioning Pending Studies Studies pending at discharge: no Laboratory Results Hemoglobin A1c Test 06/23/16 19:25 Range/Units Estimated Average Glucose 123 mg/dl Hemoglobin A1c 5.9 H 4.5-5.6 % Lipid Panel Test 06/24/16 05:25 Range/Units Triglycerides Level 106 0-150 mg/dl Cholesterol Level 174 0-200 mg/dl HDL Cholesterol 45 mg/dl Cholesterol/HDL Ratio 3.9 LDL Cholesterol, Calculated 108 mg/dl Medical Emergencies . Who to Call and When: Medical Emergencies: If at any time you feel your situation is an emergency, please call 911 immediately. . Non-Emergent Contact Non-Emergency issues call your: Primary Care Provider . . "Provider Documentation" section prepared by Esther Turcios. VTE Core Measure Inpt VTE Proph given/why not?: T.E.D. Stockings, SCD's, Contraindicated (HX OF ICH)
--- NOTE | 2016-07-20 15:23 | Discharge Summary ---
Discharge Summary Date of Service Jul 20, 2016. Discharge Summary Admission Date: Jul 04, 2016 at 01:32 Discharge Date: Jul 20, 2016 Discharge Disposition: snf facility ([facility] with PT/OT services ) Principal Diagnosis: 1. MILLY on CKD IV, newly started on Hemodialysis 2. Acute hypoxic respiratory failure likely secondary to Aspiration pneumonia 3. Delirium 4. Hypertensive urgency 5. Possible breakthrough seizures 6. Secondary Diagnoses/Problems: 1. CAD S/P Stent 2. Atrial fibrillation 3. Chronic CHF, Diastolic 4. Depression, Mild 5. COPD 6. Obesity Procedures: Tele monitoring Dialysis catheter placement (Rt) on 07/06/16 Newly started on Hemodialysis on 07/07/16 IV antibiotics Serial CXR CT head MRI brain KUB x ray Venous duplex CT abdomen/pelvis PT/OT Speech therapy Consultations: 1. Nephrology, Dr Wallace Pending Studies/Follow-Up: Instructions / Follow-Up MEDICATION CHANGES: 1. New medication: Aspirin 81 mg daily with stroke 2. Discontinued Nifedipine 90 mg daily with initiation of dialysis and better control of BP with other BP medications 3. Keppra dosing and schedule changes: 1000 mg q HS and 500 mg extra dose with dialysis on dialysis days FOLLOW UP With Dr Cerda (PCP) on 07/25/16 at 12:30 PM With neurology, Saige August PAC in 3-4 weeks With nephrology, Dr Wallace as per schedule for routine dialysis With cardiology as per schedule MONITOR: 1. BP monitoring with changes as above 2. Monitor for bleeding as Aspirin re started with hx of ICH in past Medication Reconciliation New Medications: Aspirin (Aspirin EC Low Dose) 81 Mg Ectab 81 MG PO QAM for 30 Days Levetiractam (Levetiracetam) 500 Mg Tab 500 MG PO DAILY@1800 for 30 Days, TAB To be given with dialysis on dialysis days Changed Medications: Levetiracetam (Keppra) 500 Mg Tab 1000 MG PO HS for 30 Days, TAB (Changed from: 500 MG; BID) Continued Medications: Acetaminophen Tab (Tylenol) 325 Mg Tab 650 MG PO Q4 PRN for Pain, TAB Allopurinol (Zyloprim) 300 Mg Tab 450 MG PO DAILY, 5 Refills 1.5 tablet dose Chlorhexidine Gluconate (Mouth (Periogard) 0.12 % Jennie 15 ML PO BID, #473 ML swish & spit Clonidine Hcl (Catapres) 0.2 Mg Tab 0.3 MG PO BID for 30 Days, #90 TAB Docusate Sodium (Docusate Sodium) 100 Mg Cap 1 CAP PO BID PRN for Constipation for 7 Days, #14 CAP Famotidine (Pepcid) 20 Mg Tab 20 MG PO DAILY, TAB Metoprolol Succ (Toprol Xl) (Toprol-Xl ) 100 Mg Tabcr 125 MG PO HS for 30 Days, #60 TAB Nitroglycerin (Nitrostat) 0.4 Mg Tab 0.4 MG UT UD PRN for Chest Pain, BTL Polyethylene Glycol 3350 (Miralax) 1 Pow Pow 17 GM PO DAILY PRN for Constipation, #527 GM Tiotropium [place] (Spiriva Handihaler) 30 Puff/540 Mcg Aerp 1 CAP INH DAILY for 30 Days, #30 CAP 3 Refills Discontinued Medications: Furosemide (Lasix) 40 Mg Tab 80 MG PO BID for 30 Days, #120 TAB Nifedipine (Adalat cc) 30 Mg Tab 90 MG PO QAM for 30 Days, #90 TAB Potassium Chloride (Micro-K Ext Rel) 10 Meq Capcr 20 MEQ PO DAILY for 30 Days, #60 CAP Tramadol (Ultram) 50 Mg Tab 50 MG PO Q8H PRN for Pain, TAB Admission Information HPI (per Admitting provider): HISTORY OF PRESENT ILLNESS: Medical history significant for CAD sp stenting, COPD as per records, hypertension, history of recurrent CVA, atrial fibrillation, off anticoagulation because of recent intracranial hemorrhage, chronic renal insufficiency (baseline creatinine of around 1.8), IBS as per records, DM2 diet controlled, cerebral amyloid angiopathy as per records, medication noncompliance per records, depression as per records. Recent confinement about 2 weeks ago for hypertensive urgency. Seen by Nephrology. Clonidine dose increased from 0.2 to 0.3 mg p.o. b.i.d. Nifedipine added to regimen. Lasix increased from 40 daily to 80 b.i.d. Cerebellar infact unknown duration on head CT. Repeat CAT scan of the head contemplated last week of June. Low-dose aspirin to be started for ischemic stroke prevention if stable findings as per Neurology recommendations. Yesterday, the patient had abdominal discomfort, not feeling well, menstrual cramp sensation, some nausea, no vomiting; diarrhea. Denies dysuria. She did not take her blood pressure pills because she felt sick. Somewhat confused as per daughter. Patient denies chest pain or shortness of breath as per the patient. Legs more swollen. In the Emergency Room, blood pressure noted to be 229/124. The patient given Lopressor and clonidine in the Emergency Room. Blood pressure currently improved at 185/110. Patient more comfortable, oriented. Denies depression. Daughter thinks mom increasingly frustrated w/ increasing debility over the last few months 2 to medical problems. Hospital Course ASSESSMENT & PLAN : 70 year old female with history of CAD s/p Stent, A fib off anticoagulation, CHF Diastolic Type, Recurrent CVA, Cerebellar Hemorrhage, DM, HTN, presenting with nausea/vomiting x few days. MILLY ON CKD-III -Likely volume depletion secondary to nausea/vomiting in setting of chronic lasix use -Baseline creatinine around 1.8, presented with 4.0 --> 5.60-->6.60 and thus started on dialysis on 07/06/16 -Started on dialysis on 07/06/16 - After 2 sessions, started with fluid removal on 07/08/16 - HD per Nephro- will need further HD as outpatient ACUTE HYPOXIC RESPIRATORY FAILURE- Resolved from CHF? in the setting ESRD/ possible Aspiration Pneumonia/ Pleural Effusion R >L - weaned off oxygen - S/P IV Zosyn - completed course for 7 days - on HD - Speech therapy eval to r/o aspiration: [facility] soft diet recommended EPISODES OF UNRESPONSIVENESS Possible breakthrough seizures -Keppra held 07/11- noted to be unresponsive to any stimuli 07/12/16. Restarted Keppra -Work up- CT head: negative; Brain MRI: (+) acute subacute infarct left parietal lobe -Keppra 500mg after HD and 1 gram daily -Aspirin resumed. -Appreciate neurology inputs HX OF RECURRENT CVA (Recent ICH, Hx of cerebral amyloid angiopathy as per records, Cerebellar infarct per recent CT scan last admission) This admission- stable small hemorrhage old with no new changes Brain MRI: (+) acute subacute infarct left parietal lobe -Keppra 500mg after HD/ Keppra 1g daily -Aspirin resumed -Appreciate Neurology eval HYPERTENSIVE URGENCY Secondary to not taking meds due to nausea/vomiting. -Continue with Clonidine 0.3 mg BID, Nifedipine 90 mg daily, Metoprolol 125 mg ( home meds), IV Hydralazine PRN. Held lasix--> on dialysis -Monitor DELIRIUM =Resolved from Dysequilibrium syndrome ? with initiation of dialysis. -CT head repeat- No change, stable hemorrhage, ABGs-reviewed- respiratory alkalosis, CXR- congestion + UTI-E COLI UA +VE, CT - left perinephric stranding. -Urine c/S- E coli -S/P IV Rocephin (Day 3)--> Ciprofloxacin BID (Day 11/04)- completed course S/P NAUSEA/VOMITING - Resolved Possibly acute gastroenteritis vs related to UTI/Possible pyelo with ? left perinephric stranding on ct scan ? CAD S/P STENTING -Stable CHRONIC DIASTOLIC CHF -Per recent Echo EF of 50-55%. -lasix on hold -Now on dialysis ATRIAL FIBRILLATION - on Metoprolol, Aspirin - anticoagulation held due to recent IC bleed DEPRESSION, MILD - Depressed due to personal stressors. -Psychiatry consult placed- appreciate inputs. No medications recommended at this time COPD as per records -Stable with no signs of exacerbation -Monitor DM2, well controlled as of recent HgA1c recent hba1c 5.9 -Not on meds -ISS, Accuchecks NUTRITION Aspiration + so speech evaluated- mechanical soft diet. But doing much better today, so will ask for re - evaluation. DVT PROPHYLAXIS scds re: hemorrhage DISPOSITION OKay to discharge to [facility], PT/OT recommended Acute dialysis arrangements made p er CM. Eager to be discharged Total time spent on discharge = 45 minutes This includes examination of the patient, discharge planning, medication reconciliation, and communication with other providers. Discharge Instructions Discharge Goals Goal(s): Increase independence, Improve disease control, Diagnostic testing, Therapeutic intervention, Prevent Disease Progression Activity Recommendations Activity Limitations: resume your previous activity (as tolerated; PT/OT recommended) . Instructions / Follow-Up Instructions / Follow-Up MEDICATION CHANGES: 1. New medication: Aspirin 81 mg daily with stroke 2. Discontinued Nifedipine 90 mg daily with initiation of dialysis and better control of BP with other BP medications 3. Keppra dosing and schedule changes: 1000 mg q HS and 500 mg extra dose with dialysis on dialysis days DIETARY INSTRUCTIONS 1. Regular diet with thin liquids 2. Aspiration precautions, straws OK. Fully upright for meals, and for 30-60 minutes after meals are completed. Only feed when awake/alert. 3. Alternate solids and liquids. Small bites. Rest breaks when needed. FOLLOW UP With Dr Cerda (PCP) on 07/25/16 at 12:30 PM With neurology, Saige August PAC in 3-4 weeks With nephrology, Dr Wallace as per schedule for routine dialysis With cardiology as per schedule MONITOR: 1. BP monitoring with changes as above 2. Monitor for bleeding as Aspirin re started with hx of ICH in past Current Hospital Diet Patient's current hospital diet: Diabetes Type 2 Diet, Renal Diet Discharge Diet Recommended Diet: AHA Diet (Heart Healthy), Low Sodium Diet (2gm Na), Diabetes Type 2 Diet ( PER INSTRUCTIONS), Renal Diet Procedures Procedures Performed: Insertion of Perm Catheter, Right Internal Jugular Approach Ultrasound Localization of RIght Internal Jugular Vein FLuoroscopy for Positioning Pending Studies Studies pending at discharge: no Laboratory Results Hemoglobin A1c Test 06/23/16 19:25 Range/Units Estimated Average Glucose 123 mg/dl Hemoglobin A1c 5.9 H 4.5-5.6 % Lipid Panel Test 06/24/16 05:25 Range/Units Triglycerides Level 106 0-150 mg/dl Cholesterol Level 174 0-200 mg/dl HDL Cholesterol 45 mg/dl Cholesterol/HDL Ratio 3.9 LDL Cholesterol, Calculated 108 mg/dl Medical Emergencies . Who to Call and When: Medical Emergencies: If at any time you feel your situation is an emergency, please call 911 immediately. . Non-Emergent Contact Non-Emergency issues call your: Primary Care Provider . . "Provider Documentation" section prepared by Esther Turcios. VTE Core Measure Inpt VTE Proph given/why not?: T.E.D. Stockings, SCD's, Contraindicated (HX OF ICH)
[2016-07-20 15:42] VITALS: BP 132/70; PULSE 92; TEMP 36.4; O2SAT 97
== END 2016-07-20 16:27 | DRG 673 ==
LOC: ENRESERVDT → ENRESERVTM → C.EDB 21:01 → C.2T 07-04 01:32
PROVIDERS: ADMIT Internal Medicine; ATTEND Internal Medicine
PROC: 0JH63XZ Insertion of Tunneled Vascular Access Device into Chest Subcutaneous Tissue and Fascia, Percutaneous Approach (ICD-10-PCS; principal; 2016-07-06 15:45)
PROC: 02HV33Z Insertion of Infusion Device into Superior Vena Cava, Percutaneous Approach (ICD-10-PCS; principal; 2016-07-06 15:45)
DX: N17.0 Acute kidney failure with tubular necrosis (principal); J96.01 Acute respiratory failure with hypoxia; J69.0 Pneumonitis due to inhalation of food and vomit; G93.40 Encephalopathy, unspecified; I50.32 Chronic diastolic (congestive) heart failure; Z68.41 Body mass index [BMI] 40.0-44.9, adult; E87.3 Alkalosis; N39.0 Urinary tract infection, site not specified; I13.2 Hypertensive heart and chronic kidney disease with heart failure and with stage 5 chronic kidney disease, or end stage renal disease; I16.0 Hypertensive urgency; Z91.14 Patient's other noncompliance with medication regimen; I25.10 Atherosclerotic heart disease of native coronary artery without angina pectoris; N18.6 End stage renal disease; Z95.5 Presence of coronary angioplasty implant and graft; J44.9 Chronic obstructive pulmonary disease, unspecified; Z86.73 Personal history of transient ischemic attack (TIA), and cerebral infarction without residual deficits; I48.91 Unspecified atrial fibrillation; F32.9 Major depressive disorder, single episode, unspecified; Z90.49 Acquired absence of other specified parts of digestive tract; Z82.49 Family history of ischemic heart disease and other diseases of the circulatory system; Z79.899 Other long term (current) drug therapy; Z88.8 Allergy status to other drugs, medicaments and biological substances; E66.9 Obesity, unspecified; E11.22 Type 2 diabetes mellitus with diabetic chronic kidney disease; K21.9 Gastro-esophageal reflux disease without esophagitis; Z96.659 Presence of unspecified artificial knee joint; K58.9 Irritable bowel syndrome, unspecified; Z79.4 Long term (current) use of insulin; B96.20 Unspecified Escherichia coli [E. coli] as the cause of diseases classified elsewhere; K42.9 Umbilical hernia without obstruction or gangrene; E78.5 Hyperlipidemia, unspecified

== ENCOUNTER 2016-09-04 22:09 | Emergency (ER) | payer OTHER ==
[~2016-09-04] VITALS: Ht 154.9 cm; Wt 90.5 kg
[~2016-09-04 22:09] MED LIST changes: +ASPEC81 PO; -FRS/40 PO; -IPRASOL4 INH; +LEVE500T PO; -NIFE1TAB13 PO; +POLY335019 PO; -POTA10CA28 PO; -TRAM-10 PO; -VNTHFA/IN INH
[2016-09-04] MEDS ORDERED: SODIUM CHLORIDE 0.9% 1000ML 1,000 ML IV STA (22:17)
[2016-09-04 22:26] VITALS: TEMP 36.5; Ht 154.9 cm; Wt 90.5 kg
--- NOTE | 2016-09-04 22:33 | DIAGNOSTIC IMAGING REPORT ---
CHEST ONE VIEW PORTABLE CLINICAL HISTORY: Altered mental status. Weakness. COMPARISON STUDY: 07/12/2016 FINDINGS: The heart is enlarged. There is a right internal jugular dual-lumen central venous catheter present. There is been resolution of previous identified pulmonary edema. There is been resolution of the bilateral pleural effusions and by basilar airspace opacities. There is no focal pulmonary consolidation.[ IMPRESSION: 1. Interval resolution of the previous identified pulmonary edema and bibasal airspace opacities 2. No evidence of focal pulmonary consolidation Electronically signed by: Renato Marti M.D. 09/04/2016 10:32 PM Dictated Date/Time: 09/04/2016 10:31 PM
[2016-09-05 00:29] LABS: BASO % 0.5 %; BASO ABS # 0.06 K/uL (0-0.2); COMPLETE YES; EOS % 1.5 %; HEMATOCRIT 37.8 % (37-47); IG% 0.2 %; LYMPH % 19.3 %; LYMPH ABS # 2.16 K/uL (1.2-3.4); MEAN CELL VOLUME 89.4 fL (80-100); MEAN CORPUSCULAR HEMOGLOBIN 30.3 pg (25-34); MEAN CORPUSCULAR HGB CONC 33.9 g/dl (32-36); MEAN PLATELET VOLUME 11.5 fL (7.4-10.4); MONO % 6.5 %; PLATELET COUNT 178 K/uL (130-400); RED BLOOD COUNT 4.23 M/uL (4.2-5.4); WHITE BLOOD COUNT 11.19 K/uL (4.8-10.8)
[2016-09-05 00:36] LABS: ISTAT CREATININE 5.2 mg/dl (0.6-1.3); ISTAT HEMOGLOBIN 13.6 g/dl (12.0-16.0); ISTAT IONIZED CALCIUM 1.15 mmol/l (1.12-1.32)
--- NOTE | 2016-09-05 00:39 | EMERGENCY ROOM VISIT NOTE ---
History Report prepared by Ra: Yang Mckinney Under the Supervision of: Dr. Wayne Liu D.O. First contact with patient: 22:28 Chief Complaint: SYNCOPE (NEAR SYNCOPE) Stated Complaint: NEAR SYNCOPE, DIZZINESS History of Present Illness The patient is a 71 year old female who presents to the Emergency Room with complaints of a sudden near syncopal episode beginning an hour and a half prior to arrival. She states she attempted to have a bowel movement but became dizzy when she stood up. As per daughter, she heard the patient "babbling", so she walked into the bathroom and found the patient sitting on the toilet with her head resting on the toilet paper west. She states the patient was drooling, babbling, and her eyes were glassy. The daughter notes the episode lasted 3-4 minutes. She denies the patient shaking at this time, but it appeared to be seizure-like in nature. The daughter states the patient was not responding during the episode. She notes she placed a cold washcloth on the patient, and she began telling her daughter that she was hot. The daughter states the patient wheeled herself to the couch and laid down until the ambulance came. She notes the patient had one seizure in the past following an occipital hemorrhage in March. The daughter states the patient has atrial fibrillation but it not on blood thinners. She notes the patient has renal dialysis three times a week for the past 6 weeks. The patient states her blood pressure normally runs high. She states she is still experiencing dizziness at this time. Source of History: patient Onset: hour and a half STICK PULLER Position: other (global) Quality: other (near syncope) Timing: other (sudden) Note: Associated symptoms: dizziness. Review of Systems See HPI for pertinent positives & negatives. A total of 10 systems reviewed and were otherwise negative. Past Medical & Surgical Medical Problems: (1) Atrial fibrillation (2) CAD (coronary artery disease) (3) CKD (chronic kidney disease), stage IV (4) COPD, severe (5) Depression (6) DM type 2 (diabetes mellitus, type 2) (7) Dyslipidemia (8) Encephalopathy (9) GERD (gastroesophageal reflux disease) (10) History of intracranial hemorrhage (11) HTN (hypertension) (12) IBS (irritable bowel syndrome) (13) Nontraumatic intracerebral hemorrhage Surgical Problems: (1) H/O sinus surgery (2) History of total left knee replacement (3) S/P cholecystectomy Family History FH: stomach cancer FATHER Social History Smoking Status: Never Smoker Marital Status: Occupation Status: retired Current/Historical Medications Scheduled Allopurinol (Zyloprim), 450 MG PO DAILY Aspirin (Aspirin EC Low Dose), 81 MG PO QAM Clonidine Hcl (Catapres), 0.3 MG PO BID Famotidine (Pepcid), 20 MG PO DAILY Levetiracetam (Keppra), 1,000 MG PO HS Levetiractam (Levetiracetam), 500 MG PO DAILY@1800 Metoprolol Succ (Toprol Xl) (Toprol-Xl ), 125 MG PO HS Tiotropium [place] (Spiriva Handihaler), 1 CAP INH DAILY Scheduled PRN Acetaminophen Tab (Tylenol), 650 MG PO Q4 PRN for Pain Docusate Sodium (Docusate Sodium), 1 CAP PO BID PRN for Constipation Nitroglycerin (Nitrostat), 0.4 MG UT UD PRN for Chest Pain Polyethylene Glycol 3350 (Miralax), 17 GM PO DAILY PRN for Constipation Allergies Coded Allergies: Verapamil (Verified Allergy, Mild, UNKNOWN, 09/05/16) INFO FROM [facility] Lisinopril (Verified Adverse Reaction, Mild, COUGH, 09/05/16) Physical Exam Vital Signs Date Time Temp Pulse Resp B/P Pulse Ox O2 Delivery O2 Flow Rate FiO2 09/05/16 00:50 94 16 141/92 96 Room Air 09/04/16 22:26 36.5 83 18 241/107 93 Room Air 09/04/16 22:19 78 Physical Exam VITAL SIGNS: were reviewed as above. GENERAL:Non-toxic in appearance. SKIN: Warm dry and pink. HEAD: Normocephalic and atraumatic. OROPHARYNX: Is clear and moist NECK: Supple without lymphadenopathy or meningismus. LUNGS: clear. HEART: Regular rate and rhythm. ABDOMEN: Soft and nontender. EXTREMITIES: Warm and well perfused. NEUROLOGICALLY: Awake alert and oriented without focal deficit. Cranial nerves 2 -12 are intact. There is no pronator drift. Cerebellar testing is within normal limits. There is no nystagmus. There is no facial droop. Speech is clear. Vision is grossly normal. MUSCULOSKELETAL: Good muscle tone. No evidence of trauma. Medical Decision & Procedures ER Provider Diagnostic Interpretation: Radiology results as stated below per my review and radiologist interpretation: CHEST ONE VIEW PORTABLE CLINICAL HISTORY: Altered mental status. Weakness. COMPARISON STUDY: 07/12/2016 FINDINGS: The heart is enlarged. There is a right internal jugular dual-lumen central venous catheter present. There is been resolution of previous identified pulmonary edema. There is been resolution of the bilateral pleural effusions and by basilar airspace opacities. There is no focal pulmonary consolidation.[ IMPRESSION: 1. Interval resolution of the previous identified pulmonary edema and bibasal airspace opacities 2. No evidence of focal pulmonary consolidation Electronically signed by: Renato Marti M.D. 09/04/2016 10:[address] head: did not show any acute disease. Laboratory Results 09/05/16 00:10 Red Blood Count 4.23, Mean Corpuscular Volume 89.4, Mean Corpuscular Hemoglobin 30.3, Mean Corpuscular Hemoglobin Concent 33.9, Mean Platelet Volume 11.5, Neutrophils (%) (Auto) 72.0, Lymphocytes (%) (Auto) 19.3, Monocytes (%) (Auto) 6.5, Eosinophils (%) (Auto) 1.5, Basophils (%) (Auto) 0.5, Neutrophils # (Auto) 8.05, Lymphocytes # (Auto) 2.16, Monocytes # (Auto) 0.73, Eosinophils # (Auto) 0.17, Basophils # (Auto) 0.06 Test 09/04/16 22:17 09/05/16 00:10 09/05/16 00:20 09/05/16 00:23 Creatine Kinase MB Ratio (0-3.0) White Blood Count 11.19 K/uL (4.8-10.8) Red Blood Count 4.23 M/uL (4.2-5.4) Hemoglobin 12.8 g/dL (12.0-16.0) Hematocrit 37.8 % (37-47) Mean Corpuscular Volume 89.4 fL (80-100) Mean Corpuscular Hemoglobin 30.3 pg (25-34) Mean Corpuscular Hemoglobin Concent 33.9 g/dl (32-36) Platelet Count 178 K/uL (130-400) Mean Platelet Volume 11.5 fL (7.4-10.4) Neutrophils (%) (Auto) 72.0 % Lymphocytes (%) (Auto) 19.3 % Monocytes (%) (Auto) 6.5 % Eosinophils (%) (Auto) 1.5 % Basophils (%) (Auto) 0.5 % Neutrophils # (Auto) 8.05 K/uL (1.4-6.5) Lymphocytes # (Auto) 2.16 K/uL (1.2-3.4) Monocytes # (Auto) 0.73 K/uL (0.11-0.59) Eosinophils # (Auto) 0.17 K/uL (0-0.5) Basophils # (Auto) 0.06 K/uL (0-0.2) RDW Standard Deviation 50.2 fL (36.4-46.3) RDW Coefficient of Variation 15.6 % (11.5-14.5) Immature Granulocyte % (Auto) 0.2 % Immature Granulocyte # (Auto) 0.02 K/uL (0.00-0.02) Nucleated RBC Absolute Count (auto) 0.00 K/uL (0-0) Nucleated Red Blood Cells % 0.0 % Bedside Troponin I 0.030 ng/ml (0-0.045) Bedside Hemoglobin 13.6 g/dl (12.0-16.0) Bedside Hematocrit 40 % (37-47) Bedside Sodium 133 mEq/L (135-144) Bedside Potassium 4.8 mEq/L (3.3-5.0) Bedside Chloride 94 mEq/L (101-112) Bedside Total CO2 28 mEq/l (24-31) Anion Gap 16.0 mmol/L (16-25) Bedside Blood Urea Nitrogen 58 mg/dl (7-18) Bedside Creatinine 5.2 mg/dl (0.6-1.3) Bedside Glucose (other) 150 mg/dl (70-99) Bedside Ionized Calcium ([place]) 1.15 mmol/l (1.12-1.32) Laboratory results as stated above per my review. ECG Indication: weakness Rate (beats per minute): 82 Rhythm: atrial fibrillation Findings: no ectopy, other (no acute injury) ED Course 2228: Previous medical records were reviewed. The patient was evaluated in room B10. A complete history and physical examination was performed. 2217: Ordered Sodium Chloride 1,000 ml @ 333 mls/hr IV. 0030: On reevaluation, the patient is doing well. I discussed the results and findings with the patient. She verbalized agreement of the treatment plan. The patient was discharged home. Medical Decision Differential includes acute coronary syndrome, myocardial infarction, CVA, TIA, anemia, infection, pneumonia, UTI, pyelonephritis, poor nutrition, dehydration, electrolyte disturbance,hypoglycemia. This is a 71-year-old female who presents to the ED with a chief complaint of a syncopal or near syncopal episode. The patient was reportedly going to the bathroom. She states that she became dizzy around 9 PM. She was found by the daughter babbling and drooling and staring and was not able to speak clearly for a few minutes. The patient then began responding appropriately and was able to get up and walk to the couch where she laid down. EMS brought her here for evaluation. She is dialysis dependent and has dialysis scheduled for tomorrow. The patient reports a funny feeling in the head otherwise denies any other significant symptoms. She does have a history of atrial fibrillation but is not on anticoagulation secondary to a previous head bleed. His blood pressure was unusual and elevated but a repeat blood pressure was 142/92. The patient had an i-STAT labs that revealed just abnormal kidney function which is chronic related to her renal dialysis dependence. She was not anemic. Her electrolytes were normal. Troponin was negative. A CT scan of the brain did not show acute process. Chest x-ray did not show acute process. EKG shows chronic A. fib with a controlled ventricular response. The patient was told the results. He is felt to be stable for discharge and outpatient follow-up. No specific treatment was administered. The patient is comfortable going home. Impression Primary Impression: Syncope Additional Impression: Dependence on renal dialysis Scribe Attestation The scribe's documentation has been prepared under my direction and personally reviewed by me in its entirety. I confirm that the note above accurately reflects all work, treatment, procedures, and medical decision making performed by me. Departure Information Dispostion Home / Self-Care Referrals Cristiano Cerda M.D. (PCP) Patient Instructions ED Syncope Vasovagal, My [facility] Additional Instructions Follow-up with your doctor for further care and evaluation in 1-2 days. Return to the emergency department for worsening or new symptoms or any concerns. You have been examined and treated today on an emergency basis only. This is not a substitute for, or an effort to provide, complete comprehensive medical care. It is impossible to recognize and treat all injuries or illnesses in a single emergency department visit. It is therefore important that you follow up closely with your doctor. Call as soon as possible for an appointment. Problem Qualifiers
[2016-09-05 02:02] VITALS: BP 137/84; PULSE 89; O2SAT 98
--- NOTE | 2016-09-05 07:06 | DIAGNOSTIC IMAGING REPORT ---
CT OF THE HEAD WITHOUT CONTRAST CLINICAL HISTORY: NEAR SYNCOPE COMPARISON STUDY: Head CT and MRI the brain July 12, 2016. CT DOSE: 614.27 mGy.cm TECHNIQUE: Helical axial images of the head were obtained without IV contrast. Automated exposure control was utilized for the study. FINDINGS: No acute intracranial hemorrhage, midline shift or mass effect is present. Mild ventricular dilatation is unchanged. Basilar cisterns are patent. There are no extra-axial collections. There is an old infarct within the right cerebellar hemisphere. Extensive white matter hypodensities are unchanged and suggest small vessel disease. A hyperdense focus within the right occipital lobe adjacent to the occipital horn of the right lateral ventricle is unchanged since earlier exams. This may reflect calcification. There are no CT findings to suggest acute dural sinus thrombosis or acute territorial infarct. Old lacunar infarcts within the bilateral basal ganglia are noted. There are no significant calvarial abnormalities. Postsurgical findings within the sinuses are noted. IMPRESSION: No acute intracranial findings. Electronically signed by: Andrews Gauthier M.D. 09/05/2016 7:05 AM Dictated Date/Time: 09/05/2016 7:01 AM
== END 2016-09-05 02:03 | disposition home or self-care (01) ==
LOC: EDUNIT# 22:09 → C.EDB 22:11
DX: R55 Syncope and collapse (principal); Z99.2 Dependence on renal dialysis; I48.91 Unspecified atrial fibrillation; I12.9 Hypertensive chronic kidney disease with stage 1 through stage 4 chronic kidney disease, or unspecified chronic kidney disease; N18.4 Chronic kidney disease, stage 4 (severe); E11.9 Type 2 diabetes mellitus without complications; E78.5 Hyperlipidemia, unspecified; I25.10 Atherosclerotic heart disease of native coronary artery without angina pectoris; G93.40 Encephalopathy, unspecified; J44.9 Chronic obstructive pulmonary disease, unspecified; F32.9 Major depressive disorder, single episode, unspecified; K58.9 Irritable bowel syndrome, unspecified; Z86.73 Personal history of transient ischemic attack (TIA), and cerebral infarction without residual deficits; Z90.49 Acquired absence of other specified parts of digestive tract; Z96.652 Presence of left artificial knee joint; Z98.890 Other specified postprocedural states; Z79.82 Long term (current) use of aspirin; Z79.899 Other long term (current) drug therapy; Z88.8 Allergy status to other drugs, medicaments and biological substances; Z80.0 Family history of malignant neoplasm of digestive organs

== ENCOUNTER 2019-10-10 05:06 | Inpatient (IN) ==
[2019-10-10] MEDS ORDERED: OPTIRAY 320 125ml IV PRN (05:20)
[2019-10-10] MEDS ORDERED: METOPROLOL TARTRATE 1 MG/ML VIAL IV STA (05:22)
--- NOTE | 2019-10-10 05:25 | Emergency Department Note ---
History of Present Illness General Chief complaint: Fall Stated complaint: FALL/NEURO SYMPTOMS Time Seen by Provider: 10/10/19 05:11 Source: EMS Mode of arrival: EMS Limitations: clinical acuity (Garbled speech/incomprehensible) History of Present Illness Provider complaint: Stroke evaluation with fall This patient is a 74-year-old female who presents to the emergency department by EMS after contacting life alert at 0330. Patient was found on the ground in front of her recliner somewhat removed from her walker at approximately 0345. Patient's speech is incomprehensible. There is no sign of significant trauma however the patient was incontinent of stool. Patient has end-stage renal disease and receives dialysis. There is a report of warfarin use however it is not on her most up-to-date medication list in [place] [facility]. Patient is currently unable to respond comprehensively and does not follow commands. Home Medications Home Medications Medication Instructions Recorded Confirmed Type acetaminophen [Tylenol] 650 mg PO Q4H PRN 07/05/19 10/10/19 History allopurinol 450 mg PO DAILY 07/05/19 10/10/19 History amlodipine 5 mg PO DAILY 07/05/19 10/10/19 History aspirin [Aspirin Low Dose] 81 mg PO DAILY 07/05/19 10/10/19 History clonidine HCl 0.2 mg PO QAM 07/05/19 10/10/19 History hydralazine 25 mg PO TID 07/05/19 10/10/19 History levetiracetam 1,000 mg PO DAILY 07/05/19 10/10/19 History levetiracetam 500 mg PO DIRECTED 07/05/19 10/10/19 History losartan 25 mg PO HS 07/05/19 10/10/19 History metoprolol succinate 100 mg PO BID 07/05/19 10/10/19 History nitroglycerin 0.4 mg SUBLINGUAL DIRECTED PRN 07/05/19 10/10/19 History nortriptyline 10 mg PO HS 07/05/19 10/10/19 History sevelamer carbonate 800 mg PO TID 07/05/19 10/10/19 History lanthanum 1,000 mg PO TID 10/10/19 10/10/19 History Allergies Allergy/AdvReac Type Severity Reaction Status Date / Time verapamil Allergy Mild UNKNOWN Verified 10/10/19 05:22 lisinopril AdvReac Mild COUGH Verified 10/10/19 05:22 Past Med/Surg History Social History Preferred Language: Uzbek Feels Safe at Home: Declines to Answer Smoking Status: Unknown if ever smoked Review of Systems Unobtainable due to cognitive status (Garbled speech, likely stroke) Physical Exam Vital Signs Vital Signs - 24 hr 10/10/19 05:48 10/10/19 06:14 Temperature 37.3 C Temperature Source Oral Pulse Rate 114 H 107 H Respiratory Rate 18 Blood Pressure 183/132 H 146/132 H Blood Pressure [Right Arm] 138/132 H Blood Pressure Mean 149 Blood Pressure Mean [Right Arm] 134 Blood Pressure Position Sitting Pulse Oximetry 98 Oxygen Delivery Method Room Air Sepsis Action Taken by Nursing No Action Required Vital signs reviewed. General: Chronically ill-appearing 74-year-old female, in no significant distress. HEENT: Atraumatic, no conjunctival injection, no scleral icterus. Pupils are equal and reactive bilaterally, moist mucous membranes. Cardiovascular: Tachycardic and irregular Pulmonary: Clear to auscultation bilaterally, normal work of breathing. Abdomen: Soft, nontender, nondistended, positive bowel sounds. Musculoskeletal: Generally atraumatic, minimal peripheral edema. There is a left upper extremity fistula present Neurologic: Patient awake alert but unable to follow commands. Question mild right facial droop. Speech is garbled, but does attempt to respond to questioning. Right upper and lower extremity with weakness, unable to hold up against gravity. Patient seemingly stronger on the left side but again unable to significantly weight-bear. Skin: Warm, dry, no rash Course Administered Medications Ioversol (Optiray 320 125ml) 119 ml IV ONCE PRN PRN Reason: Interaction Checking Stop: 10/14/19 05:19 Last Admin: 10/10/19 05:51 Dose: 119 ml Documented by: [id number] Discontinued Medications Metoprolol Tartrate (Lopressor) 5 mg IV NOW STA Stop: 10/10/19 05:23 Last Admin: 10/10/19 06:14 Dose: 5 mg Documented by: [id number] Critical Care Time Critical Care Time: Yes I have personally spent greater than 45 minutes of critical care time in the direct management of this patient. This includes bedside care, interpretation of diagnostic studies, and testing, discussion with consultants, patient, and family members, and other required patient management activities. This 45 minutes is in excess of all separately billable procedures. Medical Decision Making Differential Diagnosis Differential includes acute coronary syndrome, myocardial infarction, CVA, TIA, anemia, infection, pneumonia, UTI, pyelonephritis, poor nutrition, dehydration, electrolyte disturbance,hypoglycemia. Medical Records Attestation: I reviewed the patient's medical records. ([place]) Home Medications Current Medication List: was personally reviewed by me Laboratory Data Attestation: I reviewed the patient's lab results. Result diagrams: 10/10/19 05:26 10/10/19 05:26 Lab Results 10/10/19 10/10/19 10/10/19 Range/Units 05:13 05:26 05:26 WBC 16.46 H (4.8-10.8) K/uL RBC 3.96 L (4.2-5.4) M/uL Hgb 12.6 (12.0-16.0) g/dL POC Hgb (12.0-16.0) g/dl Hct 38.7 (37-47) % POC Hct (37-47) % MCV 97.7 (80-100) fL MCH 31.8 (25-34) pg MCHC 32.6 (32-36) g/dL RDW Std Deviation 51.3 H (36.4-46.3) fL RDW Coeff of Edin 14.4 (11.5-14.5) % Plt Count 189 (130-400) K/uL MPV 11.5 H (7.4-10.4) fL Immature Gran % (Auto) 0.3 % Neut % (Auto) 77.4 % Lymph % (Auto) 14.2 % [place] % (Auto) 6.6 % Eos % (Auto) 1.2 % Baso % (Auto) 0.3 % Immature Gran # (Auto) 0.05 H (0.00-0.02) K/uL Neut # (Auto) 12.75 H (1.4-6.5) K/uL Lymph # (Auto) 2.34 (1.2-3.4) K/uL [place]eman # (Auto) 1.08 H (0.11-0.59) K/uL Eos # (Auto) 0.19 (0-0.5) K/uL Baso # (Auto) 0.05 (0-0.2) K/uL PT 10.4 (9.0-12.0) Seconds POC INR 1.0 (0.9-1.1) INR 1.0 (0.9-1.1) APTT 24.8 (21.0-31.0) Seconds PTT Ratio 0.9 POC Sodium (135-144) mmol/L Sodium (136-145) mmol/L POC Potassium (3.3-5.0) mmol/L Potassium (3.5-5.1) mmol/L POC Chloride (101-112) mmol/L Chloride (98-107) mmol/L Carbon Dioxide (21-32) mmol/L POC Total CO2 (24-31) mmol/L Anion Gap (3-11) POC Anion Gap (16-25) mmol/L POC BUN (7-18) mg/dl BUN (7-18) mg/dl Creatinine (0.6-1.2) mg/dl POC Creatinine (0.6-1.3) mg/dl Est Cr Clr Drug Dosing Est GFR ( Amer) Est GFR (Non-Af Amer) BUN/Creatinine Ratio (10-20) Glucose (70-99) mg/dl POC Glucose (other) (70-99) mg/dl Calcium (8.5-10.1) mg/dl POC Ioniz Calcium [place] (1.12-1.32) mmol/l Magnesium (1.8-2.4) mg/dl Total Bilirubin (0.2-1) mg/dl AST (15-37) U/L ALT (12-78) U/L Alkaline Phosphatase (45-117) U/L Total Creatine Kinase (26-192) U/L Troponin I (0-0.045) ng/ml Total Protein (6.4-8.2) gm/dl Albumin (3.4-5.0) gm/dl Globulin (2.5-4.0) gm/dl Albumin/Globulin Ratio (0.9-2) 10/10/19 10/10/19 Range/Units 05:26 05:26 WBC (4.8-10.8) K/uL RBC (4.2-5.4) M/uL Hgb (12.0-16.0) g/dL POC Hgb 13.6 (12.0-16.0) g/dl Hct (37-47) % POC Hct 40 (37-47) % MCV (80-100) fL MCH (25-34) pg MCHC (32-36) g/dL RDW Std Deviation (36.4-46.3) fL RDW Coeff of Edin (11.5-14.5) % Plt Count (130-400) K/uL MPV (7.4-10.4) fL Immature Gran % (Auto) % Neut % (Auto) % Lymph % (Auto) % [place] % (Auto) % Eos % (Auto) % Baso % (Auto) % Immature Gran # (Auto) (0.00-0.02) K/uL Neut # (Auto) (1.4-6.5) K/uL Lymph # (Auto) (1.2-3.4) K/uL [place] # (Auto) (0.11-0.59) K/uL Eos # (Auto) (0-0.5) K/uL Baso # (Auto) (0-0.2) K/uL PT (9.0-12.0) Seconds POC INR (0.9-1.1) INR (0.9-1.1) APTT (21.0-31.0) Seconds PTT Ratio POC Sodium 135 (135-144) mmol/L Sodium 135 L (136-145) mmol/L POC Potassium 4.5 (3.3-5.0) mmol/L Potassium 4.5 (3.5-5.1) mmol/L POC Chloride 97 L (101-112) mmol/L Chloride 98 (98-107) mmol/L Carbon Dioxide 29 (21-32) mmol/L POC Total CO2 28 (24-31) mmol/L Anion Gap 8.0 (3-11) POC Anion Gap 15.0 L (16-25) mmol/L POC BUN 27 H (7-18) mg/dl BUN 25 H (7-18) mg/dl Creatinine 4.44 H (0.6-1.2) mg/dl POC Creatinine 4.5 H (0.6-1.3) mg/dl Est Cr Clr Drug Dosing Not Reportable Est GFR ( Amer) 10.5 Est GFR (Non-Af Amer) 9.0 BUN/Creatinine Ratio 5.6 L (10-20) Glucose 136 H (70-99) mg/dl POC Glucose (other) 142 H (70-99) mg/dl Calcium 9.5 (8.5-10.1) mg/dl POC Ioniz Calcium [place] 1.15 (1.12-1.32) mmol/l Magnesium 2.3 (1.8-2.4) mg/dl Total Bilirubin 0.3 (0.2-1) mg/dl AST 15 (15-37) U/L ALT 24 (12-78) U/L Alkaline Phosphatase 69 (45-117) U/L Total Creatine Kinase 51 (26-192) U/L Troponin I < 0.015 (0-0.045) ng/ml Total Protein 8.1 (6.4-8.2) gm/dl Albumin 3.6 (3.4-5.0) gm/dl Globulin 4.5 H (2.5-4.0) gm/dl Albumin/Globulin Ratio 0.8 L (0.9-2) Imaging Data Attestation: I personally reviewed and interpreted this imaging study as follows: My Impression: Chest x-ray to my interpretation reveals cardiomegaly and mild fluid overload. Radiologist's Impression: CT head: Impression: No midline shift, hemorrhage or CT evidence of acute territorial infarction. CTA head: Impression: Dense atherosclerotic plaquing of the cavernous/supraclinoid internal carotid arteries with a mild right and mild/moderate left supraclinoid internal carotid artery stenosis. Mild distal left M1 segment stenosis and moderate proximal left M2 segment stenosis. No definite occlusion in the anterior circulation. Nondominant right vertebral artery essentially extends into a posterior inferior cerebellar artery terminus with marked hypoplasia of the distal intradural/V4 segment. No saccular aneurysm. CTA neck: Impression: Dense atherosclerotic plaquing about the right carotid bifurcation without hemodynamically significant right internal carotid artery stenosis. Irregular calcified and noncalcified atherosclerotic plaquing about the left carotid bifurcation with approximately 70% stenosis of the left cervical ICA. Surgical consultation could be obtained as clinically warranted. Dense plaquing at the origin of the vertebral arteries limits evaluation for proximal stenosis which cannot be excluded, particularly on the right. No acute dissection. ECG Data Attestation: I personally reviewed and interpreted this ECG as follows: Indication: + other (stroke) Rate (beats per minute): 120 Rhythm: + atrial fibrillation ECG Intervals/blocks: + Normal QT-c ECG [place]: + Normal ECG ST segments: + Nonspecific ST abnormalities ECG Findings: no PACs and no PVCs Blood Pressure Blood Pressure Findings: Elevated blood pressure Blood Pressure Disposition: further management by hospitalist CHE Castro This patient was evaluated and appeared to be in no significant distress. IV access was obtained and laboratory work was drawn. An order for cardiac monitoring was placed and patient is found to be in atrial fibrillation with rapid ventricular response at approximately 114 bpm. Patient was unable to follow commands on my initial assessment. It seemed that the patient had a right upper and lower extremity deficit and profound speech difficulty. Chest x-ray was performed and reveals cardiomegaly. Patient was given metoprolol 5 mg IV for rate control and minimal blood pressure management. A stroke alert was called and Dr. dumont evaluated the patient. CT of the head, CTA of the head and neck were performed. There is no large occlusion identified on CT angiogram and no evidence of acute infarct on CT. This time the patient is not a candidate for TPA given the unknown last known well time or interventional management given lack of large vessel occlusion. I did speak with the patient's daughter by phone who stated she had a previous occipital hemorrhage. The patient has been taken off of her Coumadin "at least several months ago." Patient's case has been discussed with the hospitalist, Dr. Mcnally. The patient will be evaluated for admission and further management. Impression & Plan Stroke, HTN (hypertension), Atrial fibrillation with rapid ventricular response Discharge Plan Visit Data Chief Complaint: Fall Stated Complaint: FALL/NEURO SYMPTOMS Other Complaint: Neuro Symptoms/Deficit ED Provider: Jennifer Cisneros Discharge Problem: Stroke, HTN (hypertension), Atrial fibrillation with rapid ventricular response Forms Stand Alone Forms: My [facility] Prescriptions Prescriptions: No Action allopurinol 300 mg Tablet 450 mg PO DAILY RF: 0 amlodipine 5 mg Tablet 5 mg PO DAILY RF: 0 clonidine HCl 0.2 mg Tablet 0.2 mg PO QAM RF: 0 hydralazine 50 mg Tablet 25 mg PO TID RF: 0 losartan 25 mg Tablet 25 mg PO HS RF: 0 metoprolol succinate 100 mg Tablet Extended Release 24 Hr 100 mg PO BID RF: 0 nortriptyline 10 mg Capsule 10 mg PO HS RF: 0 sevelamer carbonate 800 mg Tablet 800 mg PO TID RF: 0 levetiracetam 500 mg Tablet 1,000 mg PO DAILY RF: 0 levetiracetam 500 mg Tablet 500 mg PO DIRECTED RF: 0 aspirin [Aspirin Low Dose] 81 mg Tablet,Delayed Release (Dr/Ec) 81 mg PO DAILY RF: 0 nitroglycerin 0.4 mg Tablet, Sublingual 0.4 mg sublingual DIRECTED PRN (Reason: Chest Pain) RF: 0 acetaminophen [Tylenol] 325 mg Tablet 650 mg PO Q4H PRN (Reason: pain/fever) RF: 0 lanthanum 1,000 mg Tablet,Chewable 1,000 mg PO TID RF: 0 Discharge Problem: Stroke Qualifiers: CVA mechanism: unspecified Qualified Code(s): I63.9 - Cerebral infarction, unsp ecified HTN (hypertension) Qualifiers: Hypertension type: essential hypertension Qualified Code(s): I10 - Essential (primary) hypertension
[2019-10-10 05:35] LABS: Basophils # (auto) 0.05 K/uL (0-0.2); Basophils % (auto) 0.3 %; Eosinophils # (auto) 0.19 K/uL (0-0.5); Eosinophils % (auto) 1.2 %; Hematocrit (blood only) 38.7 % (37-47); Hemoglobin 12.6 g/dL (12.0-16.0); Immature Granulocytes # (auto) 0.05 K/uL (0.00-0.02); Immature Granulocytes % (auto) 0.3 %; Lymphocytes # (auto) 2.34 K/uL (1.2-3.4); Lymphocytes % (auto) 14.2 %; Mean Corpuscular Hemoglobin 31.8 pg (25-34); Mean Corpuscular Hgb Conc 32.6 g/dL (32-36); Mean Corpuscular Volume 97.7 fL (80-100); Mean Platelet Volume 11.5 fL (7.4-10.4); Monocytes # (auto) 1.08 K/uL (0.11-0.59); Monocytes % (auto) 6.6 %; Neutrophils # (auto) 12.75 K/uL (1.4-6.5); Neutrophils % (auto) 77.4 %; Platelet Count 189 K/uL (130-400); RDW Coefficient of Variation 14.4 % (11.5-14.5); RDW Standard Deviation 51.3 fL (36.4-46.3); Red Blood Count 3.96 M/uL (4.2-5.4); White Blood Count 16.46 K/uL (4.8-10.8)
[2019-10-10 05:39] LABS: iSTAT Creatinine 4.5 mg/dl (0.6-1.3); iSTAT Hemoglobin 13.6 g/dl (12.0-16.0); iSTAT Ionized Calcium 1.15 mmol/l (1.12-1.32); iSTAT Potassium 4.5 mmol/L (3.3-5.0)
[2019-10-10 05:46] LABS: Partial Thromboplastin Ratio 0.9; Partial Thromboplastin Time 24.8 Seconds (21.0-31.0); Prothrombin Time 10.4 Seconds (9.0-12.0)
[2019-10-10 05:51] LABS: Alanine Aminotransferase 24 U/L (12-78); Albumin Level 3.6 gm/dl (3.4-5.0); Aspartate Aminotransferase 15 U/L (15-37); BUN Creatinine Ratio 5.6 (10-20); Blood Urea Nitrogen 25 mg/dl (7-18); Calcium 9.5 mg/dl (8.5-10.1); Carbon Dioxide 29 mmol/L (21-32); Chloride 98 mmol/L (98-107); Est GFR (African American) 10.5; Glucose 136 mg/dl (70-99); Magnesium 2.3 mg/dl (1.8-2.4); Potassium 4.5 mmol/L (3.5-5.1); Sodium 135 mmol/L (136-145)
[2019-10-10 05:56] LABS: Albumin Globulin Ratio 0.8 (0.9-2); Alkaline Phosphatase 69 U/L (45-117); Bilirubin,Total 0.3 mg/dl (0.2-1); Globulin 4.5 gm/dl (2.5-4.0); Total Protein 8.1 gm/dl (6.4-8.2); Troponin I < 0.015 ng/ml (0-0.045)
[2019-10-10 06:25] LABS: Creatine Kinase 51 U/L (26-192)
--- NOTE | 2019-10-10 06:30 | CT Scan Report ---
CT head/brain wo con CLINICAL HISTORY: 74 years-old Female with Stroke evaluation . Acute strokelike symptoms TECHNIQUE: Multiple axial CT images of the head were obtained without contrast. A dose lowering tech nique was utilized adhering to the principles of ALARA. CT DOSE: 638.56 mGycm COMPARISON: None. FINDINGS: No acute intracranial hemorrhage, midline shift, intracranial mass, hydrocephalus, territorial ischem ia or abnormal extra-axial collection. Age-related involutional changes with ex vacuo ventriculomegal y. Extensive and confluent white matter hypodensities suggest chronic microvascular ischemic disease. Remote lacunar infarcts of the basal ganglia. Encephalomalacia from remote infarct within the right cerebellar hemisphere. Senescent calcifications of the right lateral nucleus. Cerebral vascular calci fications. No acute calvarial fracture. Postoperative changes of prior ethmoidectomy. The paranasal sinuses, mas toid air cells, and middle ear cavities are clear. Soft tissues and orbits are unremarkable. IMPRESSION: No acute intracranial abnormality. ACT 112: Negative or not required by law. The above report was generated using voice recognition software. It may contain grammatical, syntax o r spelling errors. Electronically signed by: Sivakumar Ding M.D. 10/10/2019 6:28 AM
--- NOTE | 2019-10-10 06:37 | XRay Report ---
XR chest 1V portable HISTORY: 74 years-old Female stroke acute strokelike symptoms COMPARISON: Chest radiograph 07/05/2019 TECHNIQUE: Portable AP view of the chest FINDINGS: Cardiac silhouette is enlarged. Calcified plaque of the thoracic aortic arch. No pneumothorax, or lar ge pleural effusion. Mild blunting of the costophrenic angles may reflect trace effusions. Pulmonary vascular congestion with chronic interstitial coarsening. Degenerative changes of the shoulders and s pine. Subacute healing fracture of the distal right clavicle. IMPRESSION: Cardiomegaly with pulmonary vascular congestion. ACT 112: Negative or not required by law. The above report was generated using voice recognition software. It may contain grammatical, syntax o r spelling errors. Electronically signed by: Sivakumar Ding M.D. 10/10/2019 6:36 AM
--- NOTE | 2019-10-10 07:03 | CT Scan Report ---
CT angio neck with con CLINICAL HISTORY: 74 years-old Female with Stroke evaluation. Acute strokelike symptoms COMPARISON STUDY: CTA of the head of same day TECHNIQUE: Following the IV administration of 119 mL of Optiray 320, CT angiogram of the neck was per formed from the aortic arch to the skull base. Images are reviewed in the axial, sagittal, and luna l planes. 3-D MIPS images are created and assessed. IV contrast was administered without complication . All measurements were calculated based on NASCET criteria. A dose lowering technique was utilized adhering to the principles of ALARA. FINDINGS: Moderate mixed plaque of the thoracic aortic arch. Patent innominate artery and imaged subclavian art eries. Moderate mixed plaque of the common carotid arteries. There is severe mixed plaque of the bila teral carotid bulbs and proximal cervical segments of the internal carotid arteries. There is resulta nt 60% luminal narrowing at the proximal cervical segment right ICA, image 121 series 2. There is 70% luminal narrowing of the proximal cervical segment left ICA, image 143 series 2. Prominent calcifica tions are noted within the bilateral cavernous segments without high-grade stenosis identified. There is calcified plaque at the origin of the bilateral vertebral arteries which likely results in a degree of stenosis. The majority of the right vertebral artery terminates into the right PICA. Domin ant left vertebral artery. The basilar artery is diminutive. origin of the posterior cerebral a rteries. Lung apices are clear without pneumothorax. Multinodular goiter. Partially imaged left IJ central joan ous catheter. Degenerative changes of the spine, shoulders and sternoclavicular joints. Subacute heal ing fracture of the anterior right second rib. IMPRESSION: 1. Extensive mixed plaque of the carotid bulbs results in 60% stenosis of the proximal cervical segme nt of the right ICA and 70% stenosis on the left. 2. Calcified plaque at the origin of the vertebral arteries likely results in a degree of at least lo w-grade luminal narrowing. ACT 112: Negative or not required by law. The above report was generated using voice recognition software. It may contain grammatical, syntax o r spelling errors. Electronically signed by: Sivakumar Ding M.D. 10/10/2019 7:02 AM
--- NOTE | 2019-10-10 07:13 | CT Scan Report ---
NECK CTA HISTORY: Weakness. Fall. Stroke evaluation TECHNIQUE: Multiaxial CT images of the neck were performed following the intravenous administration o f contrast to evaluate the major cervical vessels. Maximum intensity projection images were also obta ined. All measurements were calculated based on NASCET criteria. A dose lowering technique was utili zed adhering to the principles of ALARA. COMPARISON STUDY: Carotid Doppler study 06/24/2016. FINDINGS: The aortic arch and proximal great vessels are widely patent. There is no significant sten osis, occlusion, or dissection identified within the left common carotid, right internal carotid, or vertebral arteries. Hypoplastic distal right vertebral artery. Moderate calcified plaque within the b ilateral carotid bifurcations. This results in approximately 50% focal narrowing at the distal right common carotid artery and approximately 70% focal narrowing at the proximal left ICA best seen on kavitha ge 141. Calcified 1.6 cm right thyroid nodule is again noted. Soft tissue thickening at the sternocla vicular joints is likely chronic. Mild proximal esophageal wall thickening. No pneumothorax. IMPRESSION: 1. Approximately 70% focal stenosis of the proximal left ICA due to the calcified plaque. 2. Approximately 50% focal stenosis at the distal right common carotid artery due to the calcified pl aque. 3. Additional findings as described above. ACT 112: Negative or not required by law. Electronically signed by: Javon Tariq M.D. 10/10/2019 7:12 AM
[2019-10-10] MEDS ORDERED: SODIUM CHLORIDE 0.9% 1000ML 1,000 ML IV SCH (07:48)
[2019-10-10] MEDS ORDERED: PHARMACIST DISCHARGE MED REC CONSULT PRN (07:48)
[2019-10-10] MEDS ORDERED: ONDANSETRON INJ 2 MG/ML 2 ML VIAL IV PRN (07:48)
[2019-10-10] MEDS ORDERED: ACETAMINOPHEN 325 MG TAB PO PRN (07:48)
[2019-10-10] MEDS ORDERED: NITROGLYCERIN SL 0.4 MG/TAB TAB SL PRN (07:48)
--- NOTE | 2019-10-10 08:33 | Hospitalist Progress Note ---
Date of Service October 10, 2019 Assessment & Plan (1) Stroke: Acute stroke Bilateral Carotid stenosis - seen and examined after 8 AM when patient came up to medical telemetry villalpando from emergency room. On exam, patient has speech deficits/slurred speech but able to say short phrases clearly with some facial droop. Has some trouble with tongue movements on exam. Patient able to follow all the directions. Extraoccular movements intact in all directions. In general, her motor strength of extremities are intact when on the bed. Patient reports last dialysis on Monday10/09/2019. She denies use of CPAP. Discussed with patient that she needs to have dysphagia screening, speech and swallow assessment. Patient to be started on D5 1/2 normal saline at 60 cc/hr for now with qshift blood sugar check while NPO currently. Patient breathing on room air and not in acute pain. Have asked nursing staff to give her writing instruments and note pad or maker board to help with her expressing herself -CTA neck had shown bilateral carotid stenosis and admitting physician placed consult for vascular service. Brain MRI subsequently done and confirmed acute stroke (Small foci of restricted water diffusion within the left parietal periventricular white matter consistent with an acute/subacute infarct Extensive white matter disease, likely on a small vessel basis. Multiple old lacunar infarcts and bilateral cerebellar infarcts.) -patient seen again and eating lunch as she passed the swallowing tests, oral diet as tolerated, plans to transition IV medications to oral meds -Patient will also need PT/OT evaluations and neurology assessment -echocardiogram -continued telemetry monitoring.given history of chronic atrial fibrillation and not on systemic anticoagulation at home because of intracranial hemorrhage in 2016, patient likely has speech deficits from acute stroke. Echocardiogram to be performed. monitor the blood pressures History of posttraumatic seizures -on Keppra (2) Atrial fibrillation: -chronic atrial fibrillation -on metoprolol, monitor on telemetry (3) HTN (hypertension): -hold amlodipine. Continue Toprol-XL and we will reduce the dose of clonidine to 0.1 mg p.o. b.i.d. for now to allow for permissive hypertension Deep venous thrombosis prophylaxis, sequential compression devices for now Daughter [phone] Full Code (4) ESRD (end stage renal disease) on dialysis: -nephrology consult plans to resume dialysis schedule starting on 10/11/2019 Admission and Anticipated Discharge Date Admission Date: October 10, 2019 Subjective Patient seen and examined after 8 AM when patient came up to medical telemetry villalpando from emergency room. On exam, patient has speech deficits/slurred speech but able to say short phrases clearly with some facial droop. Has some trouble with tongue movements on exam. Patient able to follow all the directions. Extraoccular movements intact in all directions. In general, her motor strength of extremities are intact when on the bed. Patient reports last dialysis on Monday10/09/2019. She denies use of CPAP. Discussed with patient that she needs to have dysphagia screening, speech and swallow assessment. Patient to be started on D5 1/2 normal saline at 60 cc/hr for now with qshift blood sugar check while NPO currently. Patient breathing on room air and not in acute pain. Have asked nursing staff to give her writing instruments and note pad or maker board to help with her expressing herself Patient will also need PT/OT evaluations and neurology assessment. echocardiogram, continued telemetry monitoring. CTA neck had shown bilateral carotid stenosis and admitting physician placed consult for vascular service. Brain MRI subsequently done and confirmed acute stroke. given history of chronic atrial fibrillation and not on systemic anticoagulation at home because of intracranial hemorrhage in 2016, patient likely has speech deficits from acute stroke. Echocardiogram to be performed. monitor the blood pressures patient seen again and eating lunch as she passed the swallowing tests Review of Systems Review of Systems: All systems reviewed & are unremarkable except as noted in Subjective Physical Exam Constitutional: comfortable Eyes: PERRL, conjunctivae normal, anicteric sclerae EOM intact bilaterally ENMT: on exam, patient has speech deficits/slurred speech but able to say short phrases clearly with some facial droop. Has some trouble with tongue movements on exam. Patient able to follow all the directions. Extraoccular movements intact in all directions. In general, her motor strength of extremities are intact when on the bed. Respiratory: normal respiratory effort, lungs clear to auscultation Cardiovascular: Rate/Rhythm: regular rate and + irregularly irregular Gastrointestinal (Abdomen): normal bowel sounds, soft, nontender, no hepatosplenomegaly Musculoskeletal: Head/Neck/Chest: normocephalic Neurologic: on exam, patient has speech deficits/slurred speech but able to say short phrases clearly with some facial droop. Has some trouble with tongue movements on exam. Patient able to follow all the directions. Extraoccular movements intact in all directions. In general, her motor strength of extrem ities are intact when on the bed. Psychiatric: Orientation: alert and cooperative Results & Data Results & Data ([facility]) Vital Signs (Past 12 Hours) Vital Signs Temp Pulse Resp BP BP Pulse Ox 10/10/19 07:16 109 H 16 161/115 H 96 10/10/19 06:14 107 H 146/132 H 10/10/19 05:48 37.3 C 114 H 18 183/132 H 138/132 H 98 (1) Stroke CVA mechanism: unspecified Qualified Code(s): I63.9 - Cerebral infarction, unspecified (2) HTN (hypertension) Hypertension type: essential hypertension Qualified Code(s): I10 - Essential (primary) hypertension
[2019-10-10] MEDS ORDERED: ACETAMINOPHEN 1,000 MG/100 ML VIAL IV PRN (08:34)
[2019-10-10] MEDS ORDERED: D5W AND 1/2NSS 1,000 ML IV SCH (08:45)
[2019-10-10] MEDS ORDERED: CLOPIDOGREL BISULFATE 75 MG TAB PO SCH (09:00)
[2019-10-10] MEDS ORDERED: levETIRAcetam 1,000 MG in 0.9 % SODIUM CHLORIDE 100 ML IV SCH (09:00)
--- NOTE | 2019-10-10 09:40 | History and Physical Report ---
DATE OF ADMISSION: 10/10/2019 CHIEF COMPLAINT: Stroke. HISTORY OF PRESENT ILLNESS: This is a 74-year-old female with past medical history significant for hyperlipidemia, chronic gout, sleep apnea, nocturnal hypoxia, chronic respiratory failure, cerebral amyloid angiopathy, chronic atrial fibrillation, no longer on Coumadin because of intracranial bleed in the past, hypertension, pulmonary hypertension, GERD, irritable bowel syndrome, end-stage renal disease, on hemodialysis, general osteoarthrosis, posttraumatic seizures, spinal stenosis, history of intraventricular hemorrhage, history of recurrent CVA, history of CA, history of falls, presents with CVA. The patient lives alone, question of being in a personal assisted living. The patient pushed the button of Life Alert at around 3:30 a.m. When the EMS arrived, she was found on the floor with stools around and she could not speak and has right facial droop, right-sided weakness, so she was brought in and stroke alert was called. Initial workup with CT of the head and CTA of the head and neck showed no acute findings on preliminary reports. Her speech is somewhat improved, but still somewhat garbled. Obeys simple commands, moves extremities.[facility] did not recommend TPA because not known well time and her symptoms somewhat improving, to treat conservatively and plan to get MRI of the head. Currently resting comfortably and hemodynamically stable. Tries to speak, able to understand but speech mostly garbled except few words, and able to say yes or no. The patient says she was doing okay until when she went to sleep and at above mentioned time she found she could not speak, and she pushed the the button. Denies any headache. Denies any blurred vision, no earache, no runny nose. Denies any sore throat. Her appetite is okay. No cough, no fever, no chills, no loss of sense of smell or taste. No shortness of breath, no chest pain, no nausea, no abdominal pain and says normal bowel and bladder movements. She says she ambulates with a walker. ALLERGIES: VERAPAMIL, LISINOPRIL. PAST MEDICAL HISTORY: As mentioned above. PAST SURGICAL HISTORY: Left total knee arthroplasty, left heart catheterization, C-sections, colonoscopies, insertion of tunneled central venous catheter, left knee arthroscopy, tonsillectomy, cholecystectomy, sinus surgery, status post LAD stent. MEDICATIONS: As per [facility]. Allopurinol 450 mg p.o. daily, Keppra 1000 mg in the a.m. and 500 mg in the p.m., nortriptyline 10 mg p.o. at bedtime, amlodipine 5 mg p.o. daily, Colace 100 mg p.o. b.i.d., Renvela 800 mg p.o. t.i.d. with meals, Toprol-XL 100 mg p.o. b.i.d., clonidine 0.2 mg p.o. b.i.d., albuterol nebulization every 4 hours p.r.n., Tylenol 500 mg p.o. q.6 hours p.r.n., aspirin 81 mg p.o. daily. FAMILY HISTORY: Significant for brother has osteoarthritis, gout. Father has rheumatoid arthritis, stomach cancer, lung disorder, gout. Mother has heart disorder. SOCIAL HISTORY: . No smoking, but has significant secondhand exposure. No alcohol use, no drug use. REVIEW OF SYMPTOMS: As per HPI. Could not get complete review of symptoms as the patient has difficulty speaking. PHYSICAL EXAMINATION: VITAL SIGNS: Temperature 37.3, pulse 107, respiratory rate 18, blood pressure 146/100, currently oxygen 98% on room air. HEENT: Pupils equal, round, reactive to light. Extraocular muscles intact. Has right facial droop. NECK: No JVD, no neck masses. CARDIOVASCULAR: S1, S2, regular rate and rhythm. No murmur, no gallop. RESPIRATORY SYSTEM: Normal AP diameter. No accessory muscle use. No wheezing, no crackles. ABDOMEN: Soft, bowel sounds present, nontender. No distention. CENTRAL NERVOUS SYSTEM: Alert and awake. Speech is mostly garbled, but can say yes or no and she is trying to speak and able to speak some words, has weakness in the right upper extremity and lower extremity. Sensation is intact. Obeys commands. EXTREMITIES: Mild lower extremity edema present, no erythema seen. LABORATORY DATA: WBC 16.4, hemoglobin 12.6, hematocrit 38.7, platelets 189. PT 10.4, INR 1, APTT 24.8. Sodium 135, potassium 4.5, chloride 98, bicarbonate 29, BUN 25, creatinine 4.4, serum glucose 136, calcium 9.5, magnesium 2.3, total bilirubin 0.3, AST 15, ALT 24, alkaline phosphatase 69, total creatine kinase 51. Troponin I less than 0.015. CT of the head: No acute intracranial abnormalities. Chest x-ray: Cardiomegaly with pulmonary vascular congestion. CTA of the head, preliminary report: No acute findings. CTA of the neck preliminary report: 70% stenosis of the left cervical ICA. EKG: Atrial fibrillation with rapid ventricular response at 120. No significant changes found. ASSESSMENT AND PLAN: This is a 74-year-old female who presents with acute cerebrovascular accident. 1. Acute cerebrovascular accident with right facial droop, right-sided weakness and garbled speech. Initial CT of the head is unremarkable. CTA of the head, no large lesions found on the preliminary report , CTA of the neck with some 70% stenosis of the left cervical internal carotid artery. Stroke alert was called but because of not well known time and also with her comorbid conditions and somewhat improving symptoms, TPA was not ordered by the [facility], recommended conservative management and getting MRI of the head. The patient has a history of recurrent strokes in the past. She has history of atrial fibrillation, not on Coumadin because of intracranial hemorrhage in 03/2016,and also history of cerebral amyloid angiopathy. She is on aspirin, which we will continue. We will also add Plavix, allow permissive hypertension. We will follow the MRI of the head and also get echocardiogram. Consult neurology, speech therapy, physical therapy, occupational therapy. N.p.o. except medications for now and IV fluids and closely monitor in the telemetry floor. 2. History of atrial fibrillation, rate controlled on Toprol-XL 100 mg p.o. b.i.d., on aspirin, not on Coumadin because of history of intracranial hemorrhage and also history of cerebral amyloid angiopathy. Follow echocardiogram. 3. History of posttraumatic seizures. At home on p.o. Keppra, we will place on IV Keppra for now. 4. Hypertension. She is on amlodipine, clonidine 0.2 mg p.o. b.i.d., Toprol-XL 100 mg p.o. b.i.d. Question of hydralazine and losartan, but it is not on the Epic. We will hold amlodipine, hydralazine and losartan. Continue Toprol-XL and we will reduce the dose of clonidine to 0.1 mg p.o. b.i.d. for now to allow for permissive hypertension. 5. End-stage renal disease, on hemodialysis. 6. Nocturnal hypoxia. Continue oxygen, . 7. Deep venous thrombosis prophylaxis, sequential compression devices for now. DISPOSITION: Closely monitor on the tele floor. PT and OT prior to discharge. Social Service to help with discharge planning. CODE STATUS: Full code if there is a chance of recovery as per discussion with the patient and also as per the Epic advance directives(DNR if no chance of recovery as per Epic). MTDD
--- NOTE | 2019-10-10 10:01 | Magnetic Resonance Report ---
MRI OF THE BRAIN WITHOUT CONTRAST CLINICAL HISTORY: Stroke, seizure. Garbled speech. COMPARISON STUDY: Noncontrast head CT dated 10/10/2019 FINDINGS: Sagittal T1, axial diffusion, proton density and T2 weighted axial, coronal FLAIR, and axial T1-weigh jayde images were acquired. No intra or extra-axial mass lesions are visualized There are foci of restricted water diffusion within the left parietal periventricular white matter co nsistent with acute/subacute infarct. There is ventricular dilatation, finding which is felt to be secondary to volume loss. Proton density T2-weighted and FLAIR images reveal there are extensive foci of abnormal increased T2 signal within the white matter, likely small vessel basis. There are multiple bilateral lacunar infar cts. There is also evidence for an old cerebellar infarcts There are no abnormal flow voids. IMPRESSION: 1. Small foci of restricted water diffusion within the left parietal periventricular white matter con sistent with an acute/subacute infarct 2. Extensive white matter disease, likely on a small vessel basis 3. Multiple old lacunar infarcts and bilateral cerebellar infarcts. ACT 112: Negative or not required by law. Electronically signed by: Renato Marti M.D. 10/10/2019 9:59 AM
--- NOTE | 2019-10-10 12:32 | Consultation Report ---
DATE OF CONSULTATION: 10/10/2019 HISTORY OF PRESENT ILLNESS: The patient is a 74-year-old female with ESRD, on chronic hemodialysis Pzxsiq-[id number]-[id number] as well as significant other medical problem list. She presented to the hospital last night with stroke-like symptoms with right facial droop, right-sided weakness as well as significant speech abnormalities. She did not get the TPA as the timeline was not well known. She had good full dialysis yesterday for 4 hours at her regular dialysis unit. ALLERGIES: VERAPAMIL AND LISINOPRIL. PAST MEDICAL AND SURGICAL HISTORY: Includes hyperlipidemia, chronic gout, sleep apnea, chronic respiratory failure, cerebral amyloid angiopathy, chronic AFib, ESRD - on hemodialysis Qlhekr-[id number]-Fokwwm, posttraumatic seizure, spinal stenosis, history of intraventricular hemorrhage, history of stroke, history of PA, left total knee arthroplasty, left heart catheterization, C-sections, colonoscopy, tunneled dialysis catheter, left knee arthroscopy, tonsillectomy, cholecystectomy, sinus surgery, cardiac stent. MEDICATIONS: List at home is reviewed and is as per the reconciliation list and the H and P. FAMILY HISTORY: Significant for heart disease in mother, but no dialysis. SOCIAL HISTORY: She is . No smoking, no alcohol, no drugs. She is currently a resident at [facility]. REVIEW OF SYSTEMS: As detailed in HPI. Other than the acute stroke-like symptoms, 12 systems reviewed and is negative. PHYSICAL EXAMINATION: GENERAL: Elderly white female who still has garbled speech at times but not for every word. She is awake, alert, oriented x3. HEENT: Mucous membrane moist. NECK: Supple. No jugular venous distention. CHEST: Bilaterally clear to auscultation. CARDIOVASCULAR: S1, S2 regular. ABDOMEN: Soft, nontender. EXTREMITIES: Show mild 1+ edema, more related with obesity. NEUROLOGIC: She is awake, alert, right-sided weakness with garbled speech. LABORATORY TESTS: Reviewed in detail. IMAGING: Reviewed in detail. ASSESSMENT AND PLAN: A 74-year-old female with chronic dialysis [id number]-Oylpuucux-Nkiqes with her arteriovenous fistula, now presenting with acute stroke-like symptoms: 1. End-stage renal disease: She will have dialysis tomorrow for 3 hours 30 minutes on a 2K bath. We will try not to use heparin given acute stroke. We will try to take about 2 kilo of fluid. Given fresh acute stroke, we will try our best not to drop her blood pressure and we will definitely try to keep it more than 120 at all times. It is reasonable to have somewhat high blood pressure for the time being. She does not need IV fluid at this time and can be stopped. 2. Stroke: As per primary team and neurology.
[2019-10-10] MEDS: SEVELAMER HCL 800 MG TABLET PO SCH ×2 (13:18→18:27)
[2019-10-10] MEDS: METOPROLOL SUCC 50MG EXT REL TAB PO SCH ×2 (13:18→19:41)
[2019-10-10] MEDS: ASPIRIN 81 MG ECTAB PO SCH (13:18)
[2019-10-10] MEDS: allopurinoL 300 MG TAB PO SCH (13:19)
[2019-10-10] MEDS: cloNIDine HCL 0.1 MG TAB PO SCH ×2 (13:19→19:40)
--- NOTE | 2019-10-10 13:58 | Consultation ---
Date of Consultation October 10, 2019 Assessment & Plan (1) Cerebrovascular accident (CVA) due to stenosis of left carotid artery: CTA shows bilateral carotid stenosis (70% on left, 60% on right). She still has deficits present. Would not recommend CEA for this lesion unless she has worsening symptoms. Would treat with antiplatets, ASA, and statin. Would continue the beta blockers. Would repeat the USN in 6 months. Thank you very much for letting us participate in the care of this patient. History of Present Illness Reason for Consultation: Acute CVA, left hemishere Attending Physician: Aditya Mata MD History of Present Illness Patient is a 74 yo female on dialysis with history of hyperlipidemia, chronic go ut, sleep apnea, nocturnal hypoxia, chronic respiratory failure, cerebral amyloid angiopathy, chronic atrial fibrillation, no longer on Coumadin because of intracranial bleed in the past, hypertension, pulmonary hypertension, GERD, irritable bowel syndrome, general osteoarthrosis, posttraumatic seizures, spinal stenosis, history of intraventricular hemorrhage, history of CVA, history of [place], history of falls, who presented to the ED with aphasia and right upper extremity weakness which started suddenly. She still says she has asphasia and right sided weakness. Allergies Allergy/AdvReac Type Severity Reaction Status Date / Time verapamil Allergy Mild UNKNOWN Verified 10/10/19 05:22 lisinopril AdvReac Mild COUGH Verified 10/10/19 05:22 Home Medications Home Medications Medication Instructions Recorded Confirmed Type acetaminophen [Tylenol] 650 mg PO Q4H PRN 07/05/19 10/10/19 History allopurinol 450 mg PO DAILY 07/05/19 10/10/19 History amlodipine 5 mg PO DAILY 07/05/19 10/10/19 History aspirin [Aspirin Low Dose] 81 mg PO DAILY 07/05/19 10/10/19 History clonidine HCl 0.2 mg PO BID 07/05/19 10/10/19 History hydralazine 25 mg PO TID 07/05/19 10/10/19 History levetiracetam 1,000 mg PO DAILY 07/05/19 10/10/19 History levetiracetam 500 mg PO DIRECTED 07/05/19 10/10/19 History losartan 25 mg PO HS 07/05/19 10/10/19 History metoprolol succinate 100 mg PO BID 07/05/19 10/10/19 History nitroglycerin 0.4 mg SUBLINGUAL DIRECTED PRN 07/05/19 10/10/19 History nortriptyline 10 mg PO HS 07/05/19 10/10/19 History sevelamer carbonate 800 mg PO TID 07/05/19 10/10/19 History lanthanum 1,000 mg PO TID 10/10/19 10/10/19 History Patient History Social History Preferred Language: Turkish Communication Ability: Impaired Feels Safe at Home: Declines to Answer Smoking Status: Unknown if ever smoked Review of Systems Review of Systems: All systems reviewed & are unremarkable except as noted in HPI & below Physical Exam Constitutional: well developed and + overweight; no acute distress Neck: trachea midline Respiratory: normal respiratory effort; no respiratory distress Auscultation: lungs clear to auscultation bilaterally Cardiovascular: Rate/Rhythm: regular rate and regular rhythm Vessels: + carotid bruit (very soft), femoral pulses present and radial pulses present Extremities: normal capillary refill and + edema (mild lower extremity) Gastrointestinal (Abdomen): Inspection/Auscultation: abdomen normal to inspection; abdomen not distended Percussion/Palpation: abdomen soft; abdomen nontender Musculoskeletal: Extremities: extremities normal to inspection Skin: no rashes, warm and dry Neurologic: CN's II-XI intact bilaterally and + focal motor deficit (right sided weakness) Speech / Cognition: + expressive aphasia Psychiatric: Orientation: alert and cooperative Results & Data Vital Signs (Past 12 Hours) Vital Signs Temp Pulse Pulse Resp BP BP Pulse Ox 10/10/19 12:08 36.9 C 114 H 20 157/92 H 98 10/10/19 07:48 36.2 C L 94 H 20 167/117 H 98 10/10/19 07:16 109 H 16 161/115 H 96 10/10/19 06:14 107 H 146/132 H 10/10/19 05:48 37.3 C 114 H 18 183/132 H 138/132 H 98
[2019-10-10] MEDS: ATORVASTATIN 40 MG TAB PO SCH (18:27)
[2019-10-10] MEDS: NORTRIPTYLINE HCL 10 MG CAP PO SCH (19:41)
--- NOTE | 2019-10-10 20:54 | Consultation Report ---
DATE OF CONSULTATION: 10/10/2019 REASON FOR CONSULTATION: New stroke. HISTORY OF PRESENT ILLNESS: The patient is a 74-year-old presumed right-handed female. As a baseline in 2017, she was said to have a nontraumatic right occipital hemorrhage and bilateral intraventricular hemorrhage. It appears she was on aspirin and had been on Coumadin in the past. I am assuming this was thought to be nonhypertensive. Unclear if there is residual neurologic deficit. The patient followed with Dr. Rosas. Her MRI in 2017 showed scattered foci of susceptibility to infarct within the brain consistent with amyloid angiopathy. There was also evidence of an old right occipital infarction that would be hemorrhagic infarction. The patient has been maintained on antiplatelet therapy with aspirin. She has atrial fibrillation. The patient was in her usual state of health, sometime yesterday afternoon developed difficulty with word finding and slurred speech. The patient indicates she laid herself down on the ground, had a right facial droop and right-sided weakness, although the patient denied that that was the case. She indicated there was not any weakness associated with this. TPA was not recommended because of not known well time and patient's symptoms were improving. MRI of the brain, which I have reviewed, shows a small foci of restricted water diffusion in the left parietal periventricular white matter consistent with an acute to subacute infarct, extensive white matter disease, likely on a small vessel basis and multiple old lacunar infarctions and bilateral cerebellar infarcts. Gradient imaging was not performed. Therefore, microhemorrhages were not commented upon. CTA of the neck showed a 60% stenosis in the right carotid bulb and 70% stenosis in the left internal carotid artery. CTA of the head is not reported of any intracranial stenosis. The patient's echocardiogram showed left atrial enlargement. Electrocardiogram, atrial fibrillation with rapid ventricular response. White count is 16, H and H 13.6/38.7, platelet count 189. Chemistry profile on admission notable for sodium 135, potassium 4.5, BUN and creatinine 25/4.4, glucose of 136. Lipid profile not performed. The patient has been otherwise in her usual state of health. No head or neck trauma, recent chiropractic manipulation of the neck, medical or dental procedures. There is no chest pain, palpitations or shortness of breath. There is no associated headache. PAST MEDICAL HISTORY: As above. In addition, hyperlipidemia, gout, sleep apnea, chronic respiratory failure, cerebral amyloid angiopathy, chronic atrial fibrillation, no longer on Coumadin because of intracranial bleed, hypertension, pulmonary hypertension, reflux, irritable bowel, end-stage renal disease - on hemodialysis, seizures related to intracranial hemorrhage, spinal stenosis, history of recurrent strokes. PAST SURGICAL HISTORY: Left total knee, left heart cath, , colonoscopy, central venous catheter, left knee arthroscopy, tonsillectomy, cholecystectomy, sinus surgery, LAD stent. MEDICATIONS: On admission, allopurinol, Keppra, nortriptyline, amlodipine, Colace, Renvela, Toprol, clonidine, albuterol, Tylenol, aspirin 81 mg. FAMILY HISTORY: Brother, osteoarthritis, gout. Father had rheumatoid arthritis, stomach cancer, lung disease, and gout. Mother has heart disease. SOCIAL HISTORY: Nonsmoker but secondhand smoke exposure. Does not drink alcohol. ALLERGIES: VERAPAMIL, LISINOPRIL. PHYSICAL EXAMINATION: VITAL SIGNS: Most recent vitals 156/93, 94, 18, 36.3. GENERAL: The patient is awake and alert. Speech is both dysarthric and with word finding difficulty. The patient is able to repeat and follow a 3-step command without clear right/left confusion, but naming is impaired. Spontaneous speech is disfluent. HEAD AND NECK: The patient is normocephalic, atraumatic. I do not appreciate any carotid bruits. HEART: Irregularly irregular. ABDOMEN: Protuberant. NEUROLOGIC: Pupils are equal. Optic nerves are grossly normal. Normal dasilva, motility, facial sensation, perhaps some mild flattening of the right nasolabial fold. Motor: There is no drift in the upper. Rapid alternating movements are slow bilaterally. Reflexes are symmetric. Toes are downgoing. [id number] is mildly slow bilaterally. [id number] is normal. No sensory loss to light touch or temperature. Gait was not tested. IMPRESSION: This is a patient who has had a history of a right occipital horn intraventricular hemorrhage, evidence of amyloid angiopathy on prior gradient imaging with atrial fibrillation and a new infarction. It is difficult to say whether or not it is related to the 70% left internal carotid stenosis versus atrial fibrillation. Vascular surgery has been consulted and recommended no carotid endarterectomy unless the patient has worsening symptoms. Treatment with antiplatelet therapy and risk factor modification and repeat ultrasound in 6 months. I would recommend that her blood pressure be well managed, evaluate her lipids as well as her diabetes control and increase her aspirin to 162 mg daily. I would avoid Plavix to avoid the higher risk of intracranial hemorrhage. The patient should follow up with Dr. Rosas who would be taking over the service tomorrow.
[2019-10-10] MEDS: ACETAMINOPHEN 325 MG TAB PO PRN (22:05)
--- NOTE | 2019-10-10 22:55 | Electrocardiogram Report ---
Test Reason : Blood Pressure : / mmHG Vent. Rate : 120 BPM Atrial Rate : 125 BPM P-R Int : 000 ms QRS Dur : 086 ms QT Int : 328 ms P-R-T Axes : 000 001 -21 degrees QTc Int : 463 ms Poor data quality, interpretation may be adversely affected Atrial fibrillation with rapid ventricular response Cannot rule out Anterior infarct , age undetermined Nonspecific ST abnormality Abnormal ECG When compared with ECG of 05-JUL-2019 01:36, No significant change was found Confirmed by Abrahan Villalobos ([id number]) on 10/10/2019 10:55:46 PM Referred By: REFERRED SELF Confirmed By:Abrahan Villalobos
[2019-10-11] MEDS ORDERED: LIDOCAINE 2% JELLY 5 ML TUBE ONE (09:32)
[2019-10-11] MEDS ORDERED: LIDOCAINE 2% JELLY 5 ML TUBE EXT ONE (09:45)
[2019-10-11] MEDS: SEVELAMER HCL 800 MG TABLET PO SCH ×3 (11:57→16:22)
[2019-10-11] MEDS: allopurinoL 300 MG TAB PO SCH (13:17)
[2019-10-11] MEDS: METOPROLOL SUCC 50MG EXT REL TAB PO SCH ×2 (13:18→20:10)
[2019-10-11] MEDS: ASPIRIN 81 MG ECTAB PO SCH (13:18)
[2019-10-11] MEDS: levETIRAcetam 500 MG TAB PO SCH (13:18)
[2019-10-11 13:22] LABS: Basophils # (auto) 0.04 K/uL (0-0.2); Basophils % (auto) 0.4 %; Eosinophils # (auto) 0.35 K/uL (0-0.5); Eosinophils % (auto) 3.6 %; Immature Granulocytes # (auto) 0.02 K/uL (0.00-0.02); Immature Granulocytes % (auto) 0.2 %; Lymphocytes # (auto) 2.27 K/uL (1.2-3.4); Lymphocytes % (auto) 23.5 %; Mean Corpuscular Hemoglobin 32.1 pg (25-34); Mean Corpuscular Hgb Conc 33.3 g/dL (32-36); Mean Corpuscular Volume 96.3 fL (80-100); Mean Platelet Volume 11.4 fL (7.4-10.4); Monocytes # (auto) 0.76 K/uL (0.11-0.59); Monocytes % (auto) 7.9 %; Neutrophils # (auto) 6.23 K/uL (1.4-6.5); Neutrophils % (auto) 64.4 %; Platelet Count 187 K/uL (130-400); RDW Coefficient of Variation 14.5 % (11.5-14.5); RDW Standard Deviation 51.2 fL (36.4-46.3); Red Blood Count 3.74 M/uL (4.2-5.4); White Blood Count 9.67 K/uL (4.8-10.8)
[2019-10-11] MEDS: cloNIDine HCL 0.1 MG TAB PO SCH ×2 (13:27→20:10)
[2019-10-11 13:52] LABS: BUN Creatinine Ratio 5.8 (10-20); Calcium 9.4 mg/dl (8.5-10.1); Creatinine Clr Calc Pharmacy 19.6 ml/min; Est GFR (African American) 18.6; Potassium 3.5 mmol/L (3.5-5.1)
[2019-10-11 14:02] LABS: Estimated Average Glucose 128 mg/dl; Hemoglobin A1C 6.1 % (4.5-5.6)
--- NOTE | 2019-10-11 15:12 | Hospitalist Progress Note ---
Date of Service October 11, 2019 Assessment & Plan (1) Stroke: Acute stroke Bilateral Carotid stenosis -This is a 74-year-old female who presents with acute cerebrovascular accident, with right facial droop, right-sided weakness and garbled speech to the ED on 10/11/2019 (Stroke alert was called when she came in but because of not well known time and also with her comorbid conditions and somewhat improving symptoms, TPA was not ordered by the [facility], recommended conservative management and getting MRI of brain the head.). seen and examined after 8 AM when patient came up to medical telemetry villalpando from emergency room. On exam, patient has speech deficits/slurred speech but able to say short phrases clearly with some facial droop. Has some trouble with tongue movements on exam. Patient able to follow all the directions. Extraoccular movements intact in all directions. In general, her motor strength of extremities are intact when on the bed. Patient reports last dialysis on Monday10/09/2019. She denies use of CPAP. she then passed the dsyphagia screening. -CTA neck had shown bilateral carotid stenosis and admitting physician placed consult for vascular service. Brain MRI subsequently done and confirmed acute stroke (Small foci of restricted water diffusion within the left parietal periventricular white matter consistent with an acute/subacute infarct Extensive white matter disease, likely on a small vessel basis. Multiple old lacunar infarcts and bilateral cerebellar infarcts.) -10/10/2019: Vascular surgery has been consulted and recommended no carotid endarterectomy unless the patient has worsening symptoms. Treatment with antiplatelet therapy and risk factor modification and repeat ultrasound in 6 months.neurology recommendations advised to avoid clopidogrel (to avoid higher risk of intracranial hemorrhage) and instead utilize aspirin 162 mg daily going forward as part of stroke risk prevention medication regimen blood pressure be -no chest pain and echocardiogram with no noted atrial septal defect reported but there is reported global hypokinesis of left ventricle and elevated right ventricular systolic pressure (generally normal ejection fraction of 50 to 55%), has been started on atorvastatin primarily for stroke prevention. and already on ARB and beta blockers at home -Patient has made substantial improvements in speech by AM of 10/11/2019. She completed dialysis. Her atrial fibrillation is chronic with mild tachycardia of low 100s. Discussed with patient and daughter by telephone about closer monitor as dialysis can affect heart rate and blood pressures immediately after. They agree. 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 She completed dialysis. Her atrial fibrillation is chronic with mild tachycardia of low 100s. Discussed with patient and daughter by telephone about closer monitor as dialysis can affect heart rate and blood pressures immediately after. They agree. no chest pain. no abdominal pain. no nausea. no vomiting. no dizziness. no headache Review of Systems Review of Systems: All systems reviewed & are unremarkable except as noted in Subjective Physical Exam Constitutional: comfortable Eyes: PERRL, conjunctivae normal, anicteric sclerae EOM intact bilaterally Respiratory: normal respiratory effort, lungs clear to auscultation Cardiovascular: Rate/Rhythm: + tachycardic and + irregularly irregular Gastrointestinal (Abdomen): normal bowel sounds, soft, nontender, no hepatosplenomegaly Musculoskeletal: Head/Neck/Chest: normocephalic Psychiatric: Orientation: alert and cooperative Results & Data Results & Data ([facility]) Vital Signs (Past 12 Hours) Vital Signs Temp Pulse Pulse Pulse Resp BP BP 10/11/19 13:13 36.6 C 107 H 18 152/99 H 10/11/19 13:11 37.0 C 86 144/100 H 10/11/19 12:40 109 H 149/90 H 10/11/19 12:20 109 H 144/100 H 10/11/19 12:00 109 H 158/107 H 10/11/19 11:40 100 H 146/93 H 10/11/19 11:20 96 H 155/95 H 10/11/19 11:00 109 H 155/64 H 10/11/19 10:40 109 H 149/101 H 10/11/19 10:20 109 H 158/107 H 10/11/19 10:00 87 144/96 H 10/11/19 09:30 37.0 C 44 L 10/11/19 06:50 36.7 C 92 H 18 142/88 H 10/11/19 03:55 36.7 C 94 H 19 173/91 H Pulse Ox 10/11/19 13:13 96 10/11/19 13:11 10/11/19 12:40 10/11/19 12:20 10/11/19 12:00 10/11/19 11:40 10/11/19 11:20 10/11/19 11:00 10/11/19 10:40 10/11/19 10:20 10/11/19 10:00 10/11/19 09:30 10/11/19 06:50 97 10/11/19 03:55 100 (1) HTN (hypertension) Hypertension type: essential hypertension Qualified Code(s): I10 - Essential (primary) hypertension (2) Stroke CVA mechanism: unspecified Qualified Code(s): I63.9 - Cerebral infarction, unspecified
[2019-10-11] MEDS ORDERED: ASPIRIN 81 MG CHEW PO ONE (15:15)
[2019-10-11] MEDS: ATORVASTATIN 40 MG TAB PO SCH (15:24)
--- NOTE | 2019-10-11 15:45 | Progress Notes ---
DATE: 10/11/2019 SUBJECTIVE: The patient was seen during dialysis; so far she is tolerating it very well. Blood pressure is on the higher side. AV fistula worked fine. PHYSICAL EXAMINATION: VITAL SIGNS: Most recent blood pressure is 152/99, pulse rate 107 per minute, 96% on 2 liter nasal cannula. CHEST: Bilateral clear to auscultation. CARDIOVASCULAR: S1, S2 regular. ABDOMEN: Soft, nontender. EXTREMITIES: Shows trace edema related with obesity. LABORATORY TESTS: Reviewed in detail. Hemoglobin this morning 12. Sodium 135, potassium 3.5, BUN 16, creatinine 2.76, but this was post-dialysis lab. MRI showed possible acute versus subacute infarct. ASSESSMENT AND PLAN: 74-year-old female with ESRD, on chronic hemodialysis Monday, , Monday who presented with acute stroke-like symptoms which was confirmed on MRI. 1. ESRD. No evidence of fluid or electrolyte imbalance. Continue dialysis as per her regular schedule of Monday, Monday, Monday. 2. Acute stroke symptoms seems to have resolved a lot. Her speech is much clearer today than yesterday.
[2019-10-11] MEDS ORDERED: levETIRAcetam 500 MG in 0.9 % SODIUM CHLORIDE 100 ML IV SCH (16:00)
[2019-10-11] MEDS ORDERED: levETIRAcetam 500 MG TAB PO SCH (16:00)
--- NOTE | 2019-10-11 16:03 | Communication Note ---
Date of Service: October 11, 2019 I know Mrs. Sullivan from yearly visits with her following her hemorrhagic infarction related to amyloid angiopathy several years ago and involving occipital lobe. She has chronic atrial fibrillation, documented amyloid angiopathy by MRI imaging in the past and has been felt to be a quite high risk for bleeding and or hemorrhagic transformation of his infarctions because of these issues. Despite the atrial fibrillation which probably has been very effectively treated at all with aspirin she has only been on aspirin in low- dose. She has quite a number of vascular risk factors has end-stage renal disease on dialysis, hypertension, dyslipidemia, gout etc. She presented with speech deficits but now today is absolutely back to normal and has been found to have a very small deep likely embolic infarction versus a localized small vessel event in the left hemisphere which would explain her deficits very well She has a 70% ipsilateral carotid stenosis, is in atrial fibrillation and also has small vessel disease all of which could of course be responsible for this cerebral event and it would be very difficult to distinguish between these and to some degree the exercise would very academic as she is not a candidate for anything stronger in terms of anticoagulation and the aspirin is certainly offering little or no protection from the atrial fibrillation and would serve primarily as a small vessel and perhaps artery to artery thromboembolic event preventative. Even though it clearly has not been effective in preventing this stroke very little else we can offer She is apparently going to be held overnight for observation and returned home. We probably need to see her in the clinic in about 6 weeks just as part of the routine post stroke algorithm and I would invite Dr. Mata to schedule a visit with us at that point I am going to sign off the case at present. Brandan Rosas MD
[2019-10-11] MEDS: AMLODIPINE BESYLATE 5 MG TAB PO SCH (16:22)
[2019-10-11] MEDS: ACETAMINOPHEN 325 MG TAB PO PRN (16:22)
[2019-10-11] MEDS: NORTRIPTYLINE HCL 10 MG CAP PO SCH (20:10)
[2019-10-12] MEDS: METOPROLOL SUCC 50MG EXT REL TAB PO SCH (08:30)
[2019-10-12] MEDS: cloNIDine HCL 0.1 MG TAB PO SCH (08:30)
[2019-10-12] MEDS: ATORVASTATIN 40 MG TAB PO SCH (08:31)
[2019-10-12] MEDS: allopurinoL 300 MG TAB PO SCH (08:31)
[2019-10-12] MEDS: SEVELAMER HCL 800 MG TABLET PO SCH ×2 (08:31→12:25)
[2019-10-12] MEDS: levETIRAcetam 500 MG TAB PO SCH (08:32)
[2019-10-12] MEDS: AMLODIPINE BESYLATE 5 MG TAB PO SCH (08:32)
[2019-10-12] MEDS ORDERED: ASPIRIN 81 MG ECTAB PO SCH (09:00)
--- NOTE | 2019-10-12 10:47 | Hospitalist Progress Note ---
Date of Service October 12, 2019 Assessment & Plan (1) Stroke: Acute stroke Bilateral Carotid stenosis -This is a 74-year-old female who presents with acute cerebrovascular accident, with right facial droop, right-sided weakness and garbled speech to the ED on 10/11/2019 (Stroke alert was called when she came in but because of not well known time and also with her comorbid conditions and somewhat improving symptoms, TPA was not ordered by the [facility], recommended conservative management and getting MRI of brain the head.). seen and examined after 8 AM when patient came up to medical telemetry villalpando from emergency room. On exam, patient has speech deficits/slurred speech but able to say short phrases clearly with some facial droop. Has some trouble with tongue movements on exam. Patient able to follow all the directions. Extraoccular movements intact in all directions. In general, her motor strength of extremities are intact when on the bed. Patient reports last dialysis on Monday10/09/2019. She denies use of CPAP. she then passed the dsyphagia screening. -CTA neck had shown bilateral carotid stenosis and admitting physician placed consult for vascular service. Brain MRI subsequently done and confirmed acute stroke (Small foci of restricted water diffusion within the left parietal periventricular white matter consistent with an acute/subacute infarct Extensive white matter disease, likely on a small vessel basis. Multiple old lacunar infarcts and bilateral cerebellar infarcts.) -10/10/2019: Vascular surgery has been consulted and recommended no carotid endarterectomy unless the patient has worsening symptoms. Treatment with antiplatelet therapy and risk factor modification and repeat ultrasound in 6 months.neurology recommendations advised to avoid clopidogrel (to avoid higher risk of intracranial hemorrhage) and instead utilize aspirin 162 mg daily going forward as part of stroke risk prevention medication regimen blood pressure be -no chest pain and echocardiogram with no noted atrial septal defect reported but there is reported global hypokinesis of left ventricle and elevated right ventricular systolic pressure (generally normal ejection fraction of 50 to 55%), has been started on atorvastatin primarily for stroke prevention. and already on ARB and beta blockers at home -Patient has made substantial improvements in speech by AM of 10/11/2019. She completed dialysis. Her atrial fibrillation is chronic with mild tachycardia of low 100s. Discussed with patient and daughter by telephone about closer monitor as dialysis can affect heart rate and blood pressures immediately after. They agree. 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 services -discharge medication of atorvastatin 40 mg daily and aspirin 162 mg daily sent electronically to [address] [place] [address] upcoming appointments 10/17/2019 11:20 AM Provider Alfonso Duarte MD Department Internal Medicine [facility] 10/22/2019 10:00 AM Provider Liban Conley DO Department Cardiology, [facility] 10/24/2019 10:40 AM Provider Brandan Rosas MD Department Neurology [facility] 10/29/2019 12:30 PM Provider Jody Wallace RN Department ising at [facility] 01/09/2020 1:30 PM Provider Wes Pelayo PA-C Department Cardiology [facility] History of posttraumatic seizures -on Keppra, continue (2) Atrial fibrillation: chronic atrial fibrillation Hypokinesis of Left Ventricle with mildly diminished ejection fraction -started on atorvastatin primarily for stroke prevention. 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 No acute events after dialysis on 10/11/2019. Telemetry with atrial fibrillation in high 90s. patient denies chests pain or palpitations or pain or dizziness or headache. She reports she feels ready to go home. 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 Review of Systems Review of Systems: All systems reviewed & are unremarkable except as noted in Subjective Physical Exam Constitutional: comfortable Eyes: PERRL, conjunctivae normal, anicteric sclerae EOM intact bilaterally ENMT: external ear and nose normal, oropharynx normal Neck: normal visual inspection Respiratory: normal respiratory effort, lungs clear to auscultation Cardiovascular: Rate/Rhythm: + irregularly irregular Gastrointestinal (Abdomen): normal bowel sounds, soft, nontender, no hepatosplenomegaly Musculoskeletal: Head/Neck/Chest: normocephalic Psychiatric: Orientation: alert and cooperative Results & Data Results & Data ([facility]) Vital Signs (Past 12 Hours) Vital Signs Temp Pulse Pulse Resp BP Pulse Ox 10/12/19 07:10 36.8 C 96 H 18 141/85 H 94 10/12/19 04:20 36.8 C 95 H 18 150/84 H 98 10/12/19 00:00 36.7 C 97 H 18 141/77 H 98 (1) HTN (hypertension) Hypertension type: essential hypertension Qualified Code(s): I10 - Essential (primary) hypertension (2) Stroke CVA mechanism: unspecified Qualified Code(s): I63.9 - Cerebral infarction, unspecified
[2019-10-12] MEDS ORDERED: STROKE PATIENT DISCHARGE STA (10:58)
--- NOTE | 2019-10-12 10:59 | Discharge Summary ---
Date of Service October 12, 2019 Admission HPI Per Admitting Provider This is a 74-year-old female with past medical history significant for hyperlipidemia, chronic gout, sleep apnea, nocturnal hypoxia, chronic respiratory failure, cerebral amyloid angiopathy, chronic atrial fibrillation, no longer on Coumadin because of intracranial bleed in the past, hypertension, pulmonary hypertension, GERD, irritable bowel syndrome, end-stage renal disease, on hemodialysis, general osteoarthrosis, posttraumatic seizures, spinal stenosis, history of intraventricular hemorrhage, history of recurrent CVA, history of CA, history of falls, presents with CVA. The patient lives alone, question of being in a personal assisted living. The patient pushed the button of Life Alert at around 3:30 a.m. When the EMS arrived, she was found on the floor with stools around and she could not speak and has right facial droop, right-sided weakness, so she was brought in and stroke alert was called. Initial workup with CT of the head and CTA of the head and neck showed no acute findings on preliminary reports. Her speech is somewhat improved, but still somewhat garbled. Obeys simple commands, moves extremities.[facility] did not recommend TPA because not known well time and her symptoms somewhat improving, to treat conservatively and plan to get MRI of the head. Currently resting comfortably and hemodynamically stable. Tries to speak, able to understand but speech, mostly garbled, but able to say yes or no. The patient says she was doing okay until when she went to sleep and at above aid time she found could not speak, that is why she pushed the the button. Denies any headache. Denies any blurred vision, no earache, no runny nose. Denies any sore throat. Her appetite is okay. No cough, no fever, no chills, no loss of sense of smell or taste. No shortness of breath, no chest pain, no nausea, no abdominal pain and says normal bowel and bladder movements. She says she ambulates with a walker. Principal Diagnosis Acute stroke (acute cerebrovascular accident) Bilateral Carotid stenosis chronic atrial fibrillation Hypokinesis of Left Ventricle with mildly diminished ejection fraction Hypertension ESRD (end stage renal disease) on dialysis Discharge Exam Constitutional comfortable Eyes PERRL, conjunctivae normal, anicteric sclerae EOM intact bilaterally ENMT external ear and nose normal, oropharynx normal Neck normal visual inspection Respiratory normal respiratory effort, lungs clear to auscultation Cardiovascular Rate/Rhythm: + irregularly irregular Gastrointestinal (Abdomen) normal bowel sounds, soft, nontender, no hepatosplenomegaly Musculoskeletal Head/Neck/Chest: normocephalic Neurologic CN's II-XI intact bilaterally Psychiatric Orientation: alert and cooperative Discharge Data Allergies Allergy/AdvReac Type Severity Reaction Status Date / Time verapamil Allergy Mild UNKNOWN Verified 10/10/19 05:22 lisinopril AdvReac Mild COUGH Verified 10/10/19 05:22 Consultations 10/10/19 06:26 ED Decision to Admit Stat 10/10/19 07:48 Consult Case Management - Discharge Planning Routine Consult Case Management - Discharge Planning Routine Consult Nephrology Routine Consult Neurology Routine Consult Vascular Surgery Routine Ordered Studies 10/10/19 05:11 CT angio head w con Urgent CT angio neck with con Urgent CT head/brain wo con Urgent 10/10/19 07:48 MR brain wo con Urgent Hospital Course (1) Stroke: Acute stroke Bilateral Carotid stenosis -This is a 74-year-old female who presents with acute cerebrovascular accident, with right facial droop, right-sided weakness and garbled speech to the ED on 10/11/2019 (Stroke alert was called when she came in but because of not well known time and also with her comorbid conditions and somewhat improving symptoms, TPA was not ordered by the [facility], recommended conservative management and getting MRI of brain the head.). seen and examined after 8 AM when patient came up to medical telemetry villalpando from emergency room. On exam, patient has speech deficits/slurred speech but able to say short phrases clearly with some facial droop. Has some trouble with tongue movements on exam. Patient able to follow all the directions. Extraoccular movements intact in all directions. In general, her motor strength of extremities are intact when on the bed. Patient reports last dialysis on Monday10/09/2019. She denies use of CPAP. she then passed the dsyphagia screening. -CTA neck had shown bilateral carotid stenosis and admitting physician placed consult for vascular service. Brain MRI subsequently done and confirmed acute stroke (Small foci of restricted water diffusion within the left parietal periventricular white matter consistent with an acute/subacute infarct Extensive white matter disease, likely on a small vessel basis. Multiple old lacunar infarcts and bilateral cerebellar infarcts.) -10/10/2019: Vascular surgery has been consulted and recommended no carotid endarterectomy unless the patient has worsening symptoms. Treatment with antiplatelet therapy and risk factor modification and repeat ultrasound in 6 months.neurology recommendations advised to avoid clopidogrel (to avoid higher risk of intracranial hemorrhage) and instead utilize aspirin 162 mg daily going forward as part of stroke risk prevention medication regimen blood pressure be -no chest pain and echocardiogram with no noted atrial septal defect reported but there is reported global hypokinesis of left ventricle and elevated right ventricular systolic pressure (generally normal ejection fraction of 50 to 55%), has been started on atorvastatin primarily for stroke prevention. and already on ARB and beta blockers at home -Patient has made substantial improvements in speech by AM of 10/11/2019. She completed dialysis. Her atrial fibrillation is chronic with mild tachycardia of low 100s. Discussed with patient and daughter by telephone about closer monitor as dialysis can affect heart rate and blood pressures immediately after. They agree. -PT/OT evaluations have been completed, patient to return home with her teacher home therapy assistance and disease case manager to set up home health services -discharge medication of atorvastatin 40 mg daily and aspirin 162 mg daily sent electronically to [address] [place] [address] upcoming appointments 10/17/2019 11:20 AM Provider Alfonso Duarte MD Department Internal Medicine [facility] 10/22/2019 10:00 AM Provider Liban Conley DO Department Cardiology, [facility] 10/24/2019 10:40 AM Provider Brandan Rosas MD Department Neurology [facility] 10/29/2019 12:30 PM Provider Jody Wallace RN Department ising at [facility] 01/09/2020 1:30 PM Provider Wes Pelayo PA-C Department Cardiology [facility] History of posttraumatic seizures -on Keppra, continue (2) Atrial fibrillation: chronic atrial fibrillation Hypokinesis of Left Ventricle with mildly diminished ejection fraction -started on atorvastatin primarily for stroke prevention. 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 and follow up of cardiac function (3) ESRD (end stage renal disease) on dialysis: -nephrology provided dialysis schedule on 10/11/2019 (4) HTN (hypertension): -metoprolol -losartan -home blood pressure medications of amlodipine and hydralazine TID with home dose clonidine 0.2 mg BID Mikhail Mckeon-[phone] Full Code Total Time Total Time Spent Total Time Spent (In Minutes): 40 minutes Total Time Includes: Examination of the Patient, Discharge Planning, Medication Reconciliation and Communication With Other Providers Discharge Plan Discharge Items Patient Disposition: Home - Home Health Services Reason For Visit: CVA Discharge Diagnosis: Acute stroke (acute cerebrovascular accident) Bilateral Carotid stenosis chronic atrial fibrillation Hypokinesis of Left Ventricle with mildly diminished ejection fraction Hypertension ESRD (end stage renal disease) on dialysis Condition on Discharge: Good Activity: Per Instructions section Non-emergency contact: Primary Care Provider and Specialist Call non-emergency contact if: you have any medication questions Follow-up/Referrals: Cristiano Cerda MD [Primary Care Provider] - Diet: Dialysis Renal Diet Comment: minced, moist diet Addtl Attending Provider Instructions: This is a 74-year-old female who presents with acute cerebrovascular accident, with right facial droop, right-sided weakness and garbled speech to the ED on 10/11/2019 (Stroke alert was called when she came in but because of not well known time and also with her comorbid conditions and somewhat improving symptoms, TPA was not ordered by the [facility], recommended conservative management and getting MRI of brain the head.). seen and examined after 8 AM when patient came up to medical telemetry villalpando from emergency room. On exam, patient has speech deficits/slurred speech but able to say short phrases clearly with some facial droop. Has some trouble with tongue movements on exam. Patient able to follow all the directions. Extraoccular movements intact in all directions. In general, her motor strength of extremities are intact when on the bed. Patient reports last dialysis on Monday10/09/2019. She denies use of CPAP. she then passed the dsyphagia screening. -CTA neck had shown bilateral carotid stenosis and admitting physician placed consult for vascular service. Brain MRI subsequently done and confirmed acute stroke (Small foci of restricted water diffusion within the left parietal periventricular white matter consistent with an acute/subacute infarct Extensive white matter disease, likely on a small vessel basis. Multiple old lacunar infarcts and bilateral cerebellar infarcts.) -10/10/2019: Vascular surgery has been consulted and recommended no carotid endarterectomy unless the patient has worsening symptoms. Treatment with antiplatelet therapy and risk factor modification and repeat ultrasound in 6 months.neurology recommendations advised to avoid clopidogrel (to avoid higher risk of intracranial hemorrhage) and instead utilize aspirin 162 mg daily going forward as part of stroke risk prevention medication regimen blood pressure be -no chest pain and echocardiogram with no noted atrial septal defect reported but there is reported global hypokinesis of left ventricle and elevated right ventricular systolic pressure (generally normal ejection fraction of 50 to 55%), has been started on atorvastatin primarily for stroke prevention. and already on ARB and beta blockers at home -Patient has made substantial improvements in speech by AM of 10/11/2019. She completed dialysis -PT/OT evaluations have been completed, patient to return home with her teacher home therapy assistance and disease case manager to set up home health services discharge medication of atorvastatin 40 mg daily and aspirin 162 mg daily sent electronically to [address] [place] [address] upcoming appointments 10/17/2019 11:20 AM Provider Alfonso Duarte MD Department Internal Medicine [facility] 10/22/2019 10:00 AM Provider Liban Conley DO Department Cardiology, [facility] 10/24/2019 10:40 AM Provider Brandan Rosas MD Department Neurology [facility] 10/29/2019 12:30 PM Provider Jody Wallace RN Department [facility] 01/09/2020 1:30 PM Provider Wes Pelayo PA-C Department Cardiology [facility] Add Orthodontist Vice President Provider Instructions: Risk Factors for Stroke: You can reduce your chances of stroke by working with your medical provider to adopt a healthy lifestyle. Some specific ways to lower your chance of stroke are: * If you are a smoker, now is the time to stop smoking cigarettes * If you are diabetic, improve the control of your blood sugars * Avoid excessive amounts of alcohol * Control high blood pressure * Lose weight if you are overweight * Be sure to lead an active lifestyle * Eat a healthy diet low in salt, cholesterol and fat You should know about other risk factors for stroke that you are unable to control. These include: * Age 55 years or older * Male gender * Certain racial groups: , or / * Family History of Stroke, Mini stroke or Heart Attack * Sickle Cell Disease Follow Up: It is important for you to keep your follow up appointments with your medical provider. Who to Call and When: Medical Emergencies: Call 911 immediately if you experience any of the following warning signs and symptoms of Stroke: * Sudden numbness or weakness of the face, arm or leg, especially on one side of the body * Sudden confusion, trouble speaking or understanding * Sudden trouble seeing in one or both eyes * Sudden trouble walking, dizziness, loss of balance or coordination * Sudden severe headache with no cause Do not delay calling 911 if you experience any warning signs or symptoms of a stroke. Delay in seeking medical attention may affect what treatments can be given to you. . Pending Studies at Discharge: No Stand-Alone Forms: My [facility], Smoking Cessation Medications and DC Order Prescriptions: New atorvastatin 40 mg Tablet 40 mg PO QAM 30 Days Qty: 30 RF: 0 aspirin 81 mg Tablet,Delayed Release (Dr/Ec) 162 mg PO DAILY 30 Days Qty: 60 RF: 0 Continued allopurinol 300 mg Tablet 450 mg PO DAILY RF: 0 amlodipine 5 mg Tablet 5 mg PO DAILY RF: 0 clonidine HCl 0.2 mg Tablet 0.2 mg PO BID RF: 0 hydralazine 50 mg Tablet 25 mg PO TID RF: 0 losartan 25 mg Tablet 25 mg PO HS RF: 0 metoprolol succinate 100 mg Tablet Extended Release 24 Hr 100 mg PO BID RF: 0 nortriptyline 10 mg Capsule 10 mg PO HS RF: 0 sevelamer carbonate 800 mg Tablet 800 mg PO TID RF: 0 levetiracetam 500 mg Tablet 1,000 mg PO DAILY RF: 0 levetiracetam 500 mg Tablet 500 mg PO DIRECTED RF: 0 nitroglycerin 0.4 mg Tablet, Sublingual 0.4 mg sublingual DIRECTED PRN (Reason: Chest Pain) RF: 0 acetaminophen [Tylenol] 325 mg Tablet 650 mg PO Q4H PRN (Reason: pain/fever) RF: 0 lanthanum 1,000 mg Tablet,Chewable 1,000 mg PO TID RF: 0 Discontinued aspirin [Aspirin Low Dose] 81 mg Tablet,Delayed Release (Dr/Ec) 81 mg PO DAILY RF: 0 Discharge Orders: Discharge Order (Routine); Ordered 10/12/19 Ordered By: Aditya Mata Admission Data Admit Date/Time: 10/10/19 06:43 Attending Provider: Aditya Mata Admit Provider: Adam Mcnally Primary Care Provider: Cristiano Cerda Other Providers: Adam Mcnally ; Nael Lorenz ; Saige Andrews ; Antelmo Kirk
--- NOTE | 2019-10-12 12:00 | Pharmacy Report ---
Pharmacist Stroke Counseling - Date of Service October 12, 2019 - Scope: Pharmacy has been consulted to provide medication discharge counseling for this patient admitted with CVA as per the Pharmacist Discharge Counseling for Stroke Patients Protocol. - Medications on Discharge: Home Medications Medication Instructions Recorded Confirmed acetaminophen [Tylenol] 650 mg PO Q4H PRN 07/05/19 10/10/19 allopurinol 450 mg PO DAILY 07/05/19 10/10/19 amlodipine 5 mg PO DAILY 07/05/19 10/10/19 clonidine HCl 0.2 mg PO BID 07/05/19 10/10/19 hydralazine 25 mg PO TID 07/05/19 10/10/19 levetiracetam 1,000 mg PO DAILY 07/05/19 10/10/19 levetiracetam 500 mg PO DIRECTED 07/05/19 10/10/19 losartan 25 mg PO HS 07/05/19 10/10/19 metoprolol succinate 100 mg PO BID 07/05/19 10/10/19 nitroglycerin 0.4 mg SUBLINGUAL DIRECTED PRN 07/05/19 10/10/19 nortriptyline 10 mg PO HS 07/05/19 10/10/19 sevelamer carbonate 800 mg PO TID 07/05/19 10/10/19 lanthanum 1,000 mg PO TID 10/10/19 10/10/19 New Rx's Medication Instructions Recorded aspirin 162 mg PO DAILY 30 Days #60 tab 10/12/19 atorvastatin 40 mg PO QAM 30 Days #30 tab 10/12/19 - Action: The above medications, specifically ones for stroke treatment/prophylaxis, have been reviewed in detail with the patient and/or patient community relations representative(s) prior to discharge. This includes indication, common adverse reactions, drug interactions, and medication administration. Medication counseling has been employed using the teach-back method to ensure understanding. - Outcome: The patient and/or patient community relations representative(s) have demonstrated understanding of the medications. Additional comments: Nurse commented that the patient has not been taking her meds. May want to reiterate the importance. Mentioned she has an aide who comes during the day, so she may answer the phone. Patient goes by "Mahsa" and her number is [phone]. She receives dialysis M,W,F and asked if we could call her on Monday anytime Thank you for allowing pharmacy to be involved in the care of this patient. Please call [phone] with any additional questions
== END 2019-10-12 13:09 | disposition home health service (06) | DRG 64 ==
LOC: ED 05:06 → 2S 06:43

== ENCOUNTER 2020-12-05 20:49 | Inpatient (IN) ==
[2020-12-05] MEDS ORDERED: oxyCODONE HCL IR 5 MG TAB (IMMEDIATE RELEASE) PO STA (20:56)
--- NOTE | 2020-12-05 21:11 | Emergency Department Note ---
Impression & Plan Falls frequently, Contusion of right shoulder, Contusion of knee, right, Contusion of foot, right, Closed fracture of right knee region, Closed left fibular fracture ED Provider Note KneeNAME: BRIAN SCOTT AGE: 75 SEX: F : 1945 ARRIVES VIA: Ambulance INFORMANT: Patient, ED PROVIDER(S): Alan Venutra DO CHIEF COMPLAINT: Fall HPI: The patient is a 75-year-old female who has a history of renal failure who presented to the emergency department for an evaluation of knee pain. The patient had multiple falls today. She fell from standing position onto her right side. She denies having any hip pain or back pain. She denies having any headache. She states she did not strike her head or neck. She has significant pain of her right shoulder as well as her. She states after the second fall she was unable to ambulate so 911 was called. The patient denies having any chest pain or abdominal pain. She states that she has been compliant with her dialysis regimen. She denies having any rectal bleeding. She has a fistula in her left upper extremity. ROS: See above HPI for pertinent positives & negatives. A total of 10 systems reviewed and were otherwise negative. PAST MEDICAL HISTORY: See Below PAST SURGICAL HISTORY: See Below FAMILY HISTORY: See Below SOCIAL HISTORY: See Below HOME MEDICATIONS: See Below ALLERGIES: See Below VITALS: See Below PHYSICAL EXAMINATION: GENERAL: Patient is awake and alert. She is somewhat anxious appearing. EYES: The conjunctivae are clear. The pupils are round and reactive. EARS, NOSE, MOUTH AND THROAT: The nose is without any evidence of any deformity. NECK: The neck is nontender and supple. RESPIRATORY: Normal respiratory effort is noted there is no evidence of wheezing rhonchi or rales CARDIOVASCULAR: Regular rate and rhythm noted there no murmurs rubs or gallops normal S1 normal S2. GASTROINTESTINAL: The abdomen is soft. Abdomen is nontender. BACK: No midline tenderness or or step-off noted range of motion in flexion extension as well as rotation no signs of muscle spasm noted MUSCULOSKELETAL/EXTREMITIES: There is significant tenderness over the right shoulder. Range of motion does appear intact there is no anterior fullness. There is no tenderness over the right clavicle or the chest. There is also ten derness over the right knee as well as the right foot. There is no tenderness or decreased range of motion over the right hip. SKIN: There is no obvious evidence of any rash. There are no petechiae, pallor or cyanosis noted. Pedal edema was noted bilaterally. Dialysis fistula was noted in the left upper extremity. There was a palpable thrill with a thrill noted to auscultation. NEUROLOGIC: Patient is awake alert and oriented x3. MEDICAL DECISION MAKING: The patient is a 75-year-old female who presented to the emergency department by ambulance. The patient had an episode of a fall earlier today. This was actually her second fall. She does have a history of end-stage renal disease receiving dialysis. She has been compliant with her dialysis schedule. Her daughter presented to be with her. She is very concerned about her mother overall because of her frequent falls. She also injured her right knee. Radiographic studies were interpreted by myself. At this time I have only noted an abnormality to the fibular head which could explain the patient's pain but I do feel she may require further radiographic work-up. She was treated with pain medication in the emergency department. I discussed the patient's laboratory and radiographic studies with her and her daughter. Ultimately given the patient's findings and inability to ambulate I discussed her case with the on-call [facility] hospitalist. They have agreed to evaluate the patient in the emergency department for further management and disposition. Triage Nursing notes reviewed. Prior medical records reviewed Vital Signs: reviewed and remarkable for no significant abnormalities Differential diagnosis: Fracture, subluxation, dislocation, contusion, ligamentous injury, neurovascular, compartment syndrome, rhabdomyolysis, as well as other pathologies. ER treatment provided: See below Diagnostics interpreted by me: ECG: EKG was obtained in the emergency department. My interpretation is atrial fibrillation at 93 bpm. There was no ectopy. Diffuse ST depressions were noted. This was compared to a tracing from October 092019. No significant changes were noted. Cardiac Monitoring: An order was placed for continuous cardiac monitoring. The monitor shows a rate of 89 bpm with sinus rhythm. Laboratory studies: As stated above and show below. Imaging studies: See below Consultation(s): 0200: Dr. Mcnally notified about the patient in the emergency department. He will evaluate the patient in the emergency department for further management and disposition. Past Med/Surg History Medical History (Updated 12/06/20 @ 10:34 by Alan Ventura DO) Acromioclavicular joint separation Atrial fibrillation CAD (coronary artery disease) "LEONA to LAD cath 2015 - moderate non obstructive disease" CKD (chronic kidney disease), stage IV Clavicle fracture COPD, severe Depression DM type 2 (diabetes mellitus, type 2) Dyslipidemia Encephalopathy Fall GERD (gastroesophageal reflux disease) HTN (hypertension) IBS (irritable bowel syndrome) Nontraumatic intracerebral hemorrhage Surgical History H/O sinus surgery History of total left knee replacement No pertinent past surgical history S/P cholecystectomy Social History Smoking Status: Never smoker Hx Alcohol Use: No Hx Substance Use: No Preferred Language: Filipino Communication Ability: Effective 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 Other Information That Helps Us Care for You: No Feels Safe at Home: Yes Safety Concerns: Feels Safe At This Time Assistive Devices: Glasses and Walker Allergies Allergies Allergy/AdvReac Type Severity Reaction Status Date / Time verapamil Allergy Mild UNKNOWN Verified 12/05/20 23:09 lisinopril AdvReac Mild COUGH Verified 12/05/20 23:09 Home Meds Home Medications Medication Instructions Recorded Confirmed acetaminophen 325 mg tablet 650 mg PO Q4H PRN 07/05/19 12/05/20 (Tylenol) allopurinol 300 mg tablet 450 mg PO DAILY 07/05/19 12/05/20 amlodipine 5 mg tablet 5 mg PO DAILY 07/05/19 12/05/20 clonidine HCl 0.2 mg tablet 0.2 mg PO BID 07/05/19 12/05/20 levetiracetam 500 mg tablet 500 mg PO .BID UD 07/05/19 12/05/20 levetiracetam 500 mg tablet 500 mg PO .TID ON DIALYSIS DAY 07/05/19 12/05/20 metoprolol succinate 100 mg 100 mg PO BID 07/05/19 12/05/20 tablet,extended release 24 hr lanthanum 1,000 mg chewable tablet 1,000 mg PO TID 10/10/19 12/05/20 aspirin 81 mg tablet,delayed 81 mg PO DAILY 12/05/20 12/05/20 release atorvastatin 80 mg tablet 80 mg PO DAILY 12/05/20 12/05/20 trazodone 50 mg tablet 25 mg PO HS 12/05/20 12/05/20 Results & Data (ED) Vital Signs Vital Signs - 24 hr 12/05/20 20:49 12/05/20 20:53 12/05/20 22:02 Temperature 37.7 C H Temperature Source Oral Pulse Rate 85 111 H Pulse Rate [Right Finger] Pulse Rate from SpO2 Sensor 95 H Respiratory Rate 18 20 Respiratory Depth Blood Pressure 126/83 126/83 Blood Pressure [Right Arm] Blood Pressure Mean 97 97 Blood Pressure Mean [Right Arm] Pulse Oximetry 100 98 Oxygen Delivery Method Room Air Nasal Cannula Oxygen Flow Rate 2 Sepsis Recent Fever Within 48 Hours No Sepsis New/Unexplained Change in Mental Status No Sepsis Action Taken by Nursing No Action Required 12/05/20 22:49 12/05/20 22:51 12/05/20 23:01 Temperature Temperature Source Pulse Rate 93 H 83 Pulse Rate [Right Finger] 90 Pulse Rate from SpO2 Sensor 84 80 Respiratory Rate 16 15 15 Respiratory Depth Blood Pressure 130/78 100/52 L Blood Pressure [Right Arm] 130/78 Blood Pressure Mean 95 68 Blood Pressure Mean [Right Arm] 95 Pulse Oximetry 100 99 100 Oxygen Delivery Method Nasal Cannula Oxygen Flow Rate 2 Sepsis Recent Fever Within 48 Hours Sepsis New/Unexplained Change in Mental Status Sepsis Action Taken by Nursing 12/06/20 00:00 12/06/20 01:00 12/06/20 02:01 Temperature Temperature Source Pulse Rate 82 87 77 Pulse Rate [Right Finger] 89 Pulse Rate from SpO2 Sensor 85 78 Respiratory Rate 17 15 14 Respiratory Depth Normal Blood Pressure 120/65 108/77 69/48 L Blood Pressure [Right Arm] 120/65 Blood Pressure Mean 83 87 55 Blood Pressure Mean [Right Arm] 83 Pulse Oximetry 100 98 Oxygen Delivery Method Nasal Cannula Oxygen Flow Rate 2 Sepsis Recent Fever Within 48 Hours Sepsis New/Unexplained Change in Mental Status Sepsis Action Taken by [facility] Medications Current Medication List: was personally reviewed by me Laboratory Data Attestation: I reviewed the patient's lab results. Result diagrams: 12/05/20 22:46 12/05/20 22:46 Lab Results 12/05/20 12/05/20 12/05/20 Range/Units 22:46 22:46 22:46 WBC 12.91 H (4.8-10.8) K/uL RBC 3.37 L (4.2-5.4) M/uL Hgb 11.1 L (12.0-16.0) g/dL Hct 34.4 L (37-47) % MCV 102.1 H (80-100) fL MCH 32.9 (25-34) pg MCHC 32.3 (32-36) g/dL RDW Std Deviation 56.1 H (36.4-46.3) fL RDW Coeff of Edin 15.1 H (11.5-14.5) % Plt Count 160 (130-400) K/uL MPV 12.2 H (7.4-10.4) fL Immature Gran % (Auto) 0.2 % Neut % (Auto) 77.7 % Lymph % (Auto) 12.5 % Crane % (Auto) 9.1 % Eos % (Auto) 0.3 % Baso % (Auto) 0.2 % Neut # (Auto) 10.04 H (1.4-6.5) K/uL Lymph # (Auto) 1.61 (1.2-3.4) K/uL Crane # (Auto) 1.17 H (0.11-0.59) K/uL Eos # (Auto) 0.04 (0-0.5) K/uL Baso # (Auto) 0.02 (0-0.2) K/uL Immature Gran # (Auto) 0.03 H (0.00-0.02) K/uL PT 10.2 (9.0-12.0) Seconds INR 1.0 (0.9-1.1) APTT 25.0 (21.0-31.0) Seconds PTT Ratio 1.0 Sodium 137 (136-145) mmol/L Potassium 4.3 (3.5-5.1) mmol/L Chloride 101 (98-107) mmol/L Carbon Dioxide 30 (21-32) mmol/L Anion Gap 7.0 (3-11) BUN 27 H (7-18) mg/dl Creatinine 5.56 H* (0.6-1.2) mg/dl Est Cr Clr Drug Dosing 8.8 ml/min Est GFR ( Amer) 7.9 ml/min Est GFR (Non-Af Amer) 6.8 ml/min BUN/Creatinine Ratio 4.8 L (10-20) Glucose 175 H (70-99) mg/dl Calcium 9.7 (8.5-10.1) mg/dl Magnesium 2.0 (1.8-2.4) mg/dl Total Bilirubin 0.4 (0.2-1) mg/dl AST 14 L (15-37) U/L ALT 15 (12-78) U/L Alkaline Phosphatase 73 (45-117) U/L Troponin I 0.029 (0-0.045) ng/ml Total Protein 6.9 (6.4-8.2) gm/dl Albumin 3.2 L (3.4-5.0) gm/dl Globulin 3.7 (2.5-4.0) gm/dl Albumin/Globulin Ratio 0.9 (0.9-2) TSH 1.580 (0.300-4.500) uIu/ml COVID-19 Eval Order SARS-CoV-2 (PCR) (Negative) 12/06/20 12/06/20 Range/Units 01:55 01:55 WBC (4.8-10.8) K/uL RBC (4.2-5.4) M/uL Hgb (12.0-16.0) g/dL Hct (37-47) % MCV (80-100) fL MCH (25-34) pg MCHC (32-36) g/dL RDW Std Deviation (36.4-46.3) fL RDW Coeff of Edin (11.5-14.5) % Plt Count (130-400) K/uL MPV (7.4-10.4) fL Immature Gran % (Auto) % Neut % (Auto) % Lymph % (Auto) % Crane % (Auto) % Eos % (Auto) % Baso % (Auto) % Neut # (Auto) (1.4-6.5) K/uL Lymph # (Auto) (1.2-3.4) K/uL Crane # (Auto) (0.11-0.59) K/uL Eos # (Auto) (0-0.5) K/uL Baso # (Auto) (0-0.2) K/uL Immature Gran # (Auto) (0.00-0.02) K/uL PT (9.0-12.0) Seconds INR (0.9-1.1) APTT (21.0-31.0) Seconds PTT Ratio Sodium (136-145) mmol/L Potassium (3.5-5.1) mmol/L Chloride (98-107) mmol/L Carbon Dioxide (21-32) mmol/L Anion Gap (3-11) BUN (7-18) mg/dl Creatinine (0.6-1.2) mg/dl Est Cr Clr Drug Dosing ml/min Est GFR ( Amer) ml/min Est GFR (Non-Af Amer) ml/min BUN/Creatinine Ratio (10-20) Glucose (70-99) mg/dl Calcium (8.5-10.1) mg/dl Magnesium (1.8-2.4) mg/dl Total Bilirubin (0.2-1) mg/dl AST (15-37) U/L ALT (12-78) U/L Alkaline Phosphatase (45-117) U/L Troponin I (0-0.045) ng/ml Total Protein (6.4-8.2) gm/dl Albumin (3.4-5.0) gm/dl Globulin (2.5-4.0) gm/dl Albumin/Globulin Ratio (0.9-2) TSH (0.300-4.500) uIu/ml COVID-19 Eval Order Covid19 at [facility] SARS-CoV-2 (PCR) NEGATIVE (Negative) Administered Medications Allopurinol (Allopurinol 300 Mg Tab) 450 mg PO DAILY [facility] Stop: 01/05/21 08:59 Last Admin: 12/06/20 08:42 Dose: 450 mg Documented by: [id number] Amlodipine Besylate (Amlodipine Besylate 5 Mg Tab) 5 mg PO DAILY THELMA Stop: 01/05/21 08:59 Last Admin: 12/06/20 08:40 Dose: 5 mg Documented by: [id number] Aspirin (Aspirin 81 Mg Ectab) 81 mg PO DAILY [facility] Stop: 01/05/21 08:59 Last Admin: 12/06/20 08:40 Dose: 81 mg Documented by: [id number] Atorvastatin Calcium (Atorvastatin 40 Mg Tab) 80 mg PO DAILY [facility] Stop: 01/05/21 08:59 Last Admin: 12/06/20 08:40 Dose: 80 mg Documented by: [id number] Clonidine HCl (Clonidine Hcl 0.1 Mg Tab) 0.2 mg PO BID [facility] Stop: 01/05/21 08:59 Last Admin: 12/06/20 08:42 Dose: 0.2 mg Documented by: [id number] Heparin Sodium (Porcine) (Heparin Sod 5,000 Unit/0.5 Ml Vial) 5,000 units SQ Q12 [facility] Stop: 01/05/21 08:59 Last Admin: 12/06/20 08:43 Dose: 5,000 units Documented by: [id number] Hydromorphone HCl (Hydromorphone Inj 0.5 Mg/0.5 Ml Syr) 0.5 mg IV Q4H PRN PRN Reason: Pain Stop: 12/20/20 04:57 Last Admin: 12/06/20 07:34 Dose: 0.5 mg Documented by: [id number] Levetiracetam (Levetiracetam 500 Mg Tab) 500 mg PO BID@0900,1200 [facility] Stop: 01/05/21 08:59 Last Admin: 12/06/20 08:43 Dose: 500 mg Documented by: [id number] Metoprolol Succinate (Metoprolol Succ 50mg Ext Rel Tab) 100 mg PO BID [facility] Stop: 01/05/21 08:59 Last Admin: 12/06/20 08:41 Dose: 100 mg Documented by: [id number] Miscellaneous (Lanthanum: Order Awaiting Action) 1 ea N/A QS [facility] Stop: 01/05/21 07:59 Last Admin: 12/06/20 09:18 Dose: Not Given Documented by: [id number] Discontinued Medications Morphine Sulfate (Morphine Sulfate 4 Mg/Ml 1 Ml Carp\\Vial) 4 mg IV NOW STA Stop: 12/06/20 00:44 Last Admin: 12/06/20 00:47 Dose: 4 mg Documented by: [id number] Ondansetron HCl (Ondansetron Inj 2 Mg/Ml 2 Ml Vial) 4 mg IV NOW STA Stop: 12/06/20 00:44 Last Admin: 12/06/20 00:47 Dose: 4 mg Documented by: [id number] Oxycodone HCl (Oxycodone Hcl Ir 5 Mg Tab (Immediate Release)) 5 mg PO NOW STA Stop: 12/05/20 20:57 Last Admin: 12/05/20 21:09 Dose: 5 mg Documented by: [id number] Imaging Data Attestation: I personally reviewed and interpreted this imaging study as follows: My Impression: 1 view chest x-ray was obtained in the emergency department. My interpretation is cardiomegaly. There is no free air. No definite filtrate was noted. No acute disease. Multiple views of the right foot were obtained. X-rays revealed diffuse soft tissue swelling. No definite fracture was noted. X-ray of the right shoulder was obtained. No definite fracture was noted. X-ray of the right hip and pelvis was obtained in the emergency department. My interpretation is no acute fracture. Significant DJD and vascular calcification was noted. X-ray of the right knee was obtained. Significant DJD was noted. There was irregularity noted to the right fibular head. This could represent a fracture. Radiologist's Impression: Foot X-Ray 12/05/20 20:56 XR foot RT min 3V routine CLINICAL HISTORY: fall COMPARISON: None. DISCUSSION: No definite acute fracture or dislocation seen. Evaluation is limited due to diffuse severe osteopenia. Severe degenerative changes of the tarsometatarsal region and at the first metatarsophalangeal joint are seen. Plantar and posterior calcaneal spurs are seen. Diffuse soft tissue edema and heavy vascular calcifications are seen. IMPRESSION: No acute fracture or dislocation. The rest of findings as above. ACT 112: Negative or not required by law. The above report was generated using voice recognition software. It may contain grammatical, syntax or spelling errors. Electronically signed by: Nini Sommers DO 12/06/2020 7:55 AM Hip/Pelvis X-Ray 12/05/20 20:56 XR hip RT 2V w pelvis CLINICAL HISTORY: fall COMPARISON: None. DISCUSSION: No definite acute fracture dislocation seen however evaluation is significantly limited due to severe diffuse osteopenia. Degenerative changes of the bilateral hip joints and at enthesopathy is seen. Heavy vascular calcifications and extensive amount of stool is seen. Large amount of stool within pelvic region could represent fecal impaction. IMPRESSION: 1. No acute fracture or dislocation, significantly limited exam. 2. Severe atherosclerosis. 3. Fecal impaction. ACT 112: Negative or not required by law. The above report was generated using voice recognition software. It may contain grammatical, syntax or spelling errors. Electronically signed by: Nini Sommers DO 12/06/2020 7:51 AM Knee X-Ray 12/05/20 20:56 XR knee RT 1 or 2V routine CLINICAL HISTORY: fall COMPARISON: None. DISCUSSION: No definite acute fracture dislocation seen. Severe degenerative changes of the knee is seen with narrowing of medial compartment of the knee joint was subchondral sclerosis and osteophytes. Evaluation is limited due to severe diffuse osteopenia and prominent soft tissue edema. Heavy vascular calcifications are seen. IMPRESSION: No definite acute fracture or dislocation. Limited exam. ACT 112: Negative or not required by law. The above report was generated using voice recognition software. It may contain grammatical, syntax or spelling errors. Electronically signed by: Nini Sommers DO 12/06/2020 7:52 AM Shoulder X-Ray 12/05/20 20:56 XR shoulder RT min 2V routine CLINICAL HISTORY: fall COMPARISON: None. DISCUSSION: No definite acute fracture or dislocation seen. Evaluation is limited due to severe diffuse osteopenia. Degenerative changes of the spine are partially seen. IMPRESSION: No definite acute fracture or dislocation. ACT 112: Negative or not required by law. The above report was generated using voice recognition software. It may contain grammatical, syntax or spelling errors. Electronically signed by: Nini Sommers DO 12/06/2020 7:[address] 12/05/20 21:57 CT SCAN OF THE CERVICAL SPINE CLINICAL HISTORY: Trauma. Fall. COMPARISON STUDY: CT of the cervical spine dated 07/05/2019. TECHNIQUE: CT scan of the cervical spine is performed from the skull base to the upper thoracic spine. Images are reviewed in the axial, sagittal, and coronal planes. IV contrast was not administered for this examination. A dose lowering technique was utilized adhering to the principles of ALARA. FINDINGS: Skeletal structures: The skeletal structures are osteopenic. There is no evidence of fracture or subluxation involving the cervical spine. Vertebral body height and alignment are maintained. There is straightening of the cervical lordosis. Anterior osteophytes are seen throughout. The odontoid process and lateral masses are intact. The atlantoaxial articulation is preserved noting advanced productive degenerative change. The spinous processes appear intact. There is moderate to advanced multilevel cervical spondylosis. Uncovertebral and facet arthropathy contribute to neural foraminal stenosis at most levels. Intervertebral discs: Moderate to severe disc space narrowing is seen at C4-C5 and C5-C6. Mild disc space narrowing is seen at the remaining cervical levels. Central canal: Large posterior disc osteophyte complexes are seen at all cervic al levels. These contribute to multilevel acquired compromise of the central canal. Soft tissues: The prevertebral and paraspinous soft tissues are within normal limits. Low-attenuation thyroid nodules and calcifications measure up to 1 cm. These are unchanged. There is advanced atherosclerotic calcification of the carotid bulbs. Calvarium: The visualized calvarium at the skull base appears intact. Brain parenchyma: Partially visualized brain parenchyma at the skull base is within normal limits. Sinuses and mastoids: The visualized paranasal sinuses are clear. The mastoid air cells are well pneumatized. Cerumen fills the external auditory canals. Lung apices: Clear as visualized. IMPRESSION: 1. There is no evidence of fracture or subluxation involving the cervical spine. 2. Osteopenia and spondylotic change as above. ACT 112: Negative or not required by law. Electronically signed by: Derrek Magallon M.D. 12/06/2020 8:[address] 12/05/20 21:57 CT SCAN OF THE BRAIN WITHOUT IV CONTRAST CLINICAL HISTORY: Fall. COMPARISON STUDY: CT of the brain dated 10/10/2019. TECHNIQUE: Unenhanced axial CT scan of the brain is performed from the vertex to the skull base. A dose lowering technique was utilized adhering to the p rinciples of ALARA. CT DOSE: 970.88 mGy.cm FINDINGS: Brain parenchyma: There are age-related involutional changes noting moderate to advanced subcortical and periventricular microangiopathic change. There is no hemorrhage, mass effect, or evidence of acute territorial ischemia by CT criteria. Small chronic lacunar infarcts are noted in the basal ganglia, both cerebellar hemispheres, and the right thalamus Almazan-white matter differentiation is preserved. No extra-axial fluid collection is seen. Ventricles, sulci, cisterns: Prominent secondary to involutional change. Intracranial vasculature: There is atherosclerotic calcification of the cavernous carotid arteries. Calvarium: The skeletal structures are osteopenic. There is no depressed calvarial fracture. Sinuses and mastoids: The paranasal sinuses are clear. The mastoid air cells are well pneumatized. Orbits: The bony orbits are grossly intact. IMPRESSION: There is no hemorrhage, mass effect, or evidence of acute territorial ischemia by CT criteria. ACT 112: Negative or not required by law. Electronically signed by: Derrek Magallon M.D. 12/06/2020 6:48 AM Chest X-Ray 12/05/20 21:58 XR chest 1V portable CLINICAL HISTORY: weakness COMPARISON STUDY: October 10, 2019 FINDINGS: No pneumothorax. No pleural effusion. Few linear density at the left costophrenic angle could represent small atelectasis or infiltrate. Cardiomediastinal silhouette is mildly enlarged. Aorta is calcified. Enlargement of the right shweta and mild pulmonary vascular congestion is seen.. Osseous structures: Degenerative changes of the spine. IMPRESSION: 1. Cardiomegaly. Pulmonary vascular congestion. 2. Small atelectasis or infiltrate at the left base. ACT 112: Negative or not required by law. The above report was generated using voice recognition software. It may contain grammatical, syntax or spelling errors. Electronically signed by: Nini Sommers DO 12/06/2020 8:31 AM Patient: BRIAN SCOTT (Female) : 41 Status: ER Date: 12/05/20 23:24 Room #: History: fall, unknown loc Slices: 59 Priors: Tech: [email or web address] @ [phone] Exams: CT HEAD Contrast: Accession Numbers: [id number] Referring Physician: REFERRED SELF Preliminary Findings Only See Final Report For Complete Findings CT HEAD: Comparison to CT angiogram of the brain from October 10, 2019. Moderate diffuse periventricular and deep white matter low-density in mild volume loss consistent with chronic small vessel disease. There is an old lacunar infarct in the left subinsular region measuring 7 mm and an old infarct in the left frontal lobe measuring approximate 1.7 cm, unchanged. No evidence of acute large vessel infarct or intracranial hemorrhage. The paranasal sinuses and mastoid air cells are normal. No skull fracture or scalp hematoma. Radiologist: Sanjeev Baires MD Study ready at 23:31 and initial results transmitted at 00:44 Patient: BRIAN SCOTT (Female) : 41 Status: ER Date: 12/05/20 23:25 Room #: History: fall today Slices: [id number] Priors: Tech: Shea Marti @ [phone] Exams: CT C SPINE Contrast: Accession Numbers: [id number] Referring Physician: REFERRED SELF Preliminary Findings Only See Final Report For Complete Findings CT C SPINE: Moderate to severe multilevel loss of disc space height and osteophytosis throughout the cervical spine. There is also moderate degenerative change at the atlantodental joint seen throughout the facet joints greatest on the right 10 cT3 and C3-4. The posterior disc marginal osteophyte formation causes spinal stenosis at the following levels: C2-3: 3 mm osteophyte narrows the canal to 9 mm. There is mild left neural foraminal narrowing. C3-4: 3 mm osteophyte narrows the canal to 8-9 mm. There is severe bilateral neural foraminal narrowing. C4-5: 5 mm osteophyte narrows the canal to 5-6 mm. There is severe left neural foraminal narrowing. C5-6: 4 mm osteophyte narrows the canal to 5 mm. There is severe bilateral mild foraminal narrowing. Incidental note is made of severe calcification of the carotid bifurcations bilaterally. Radiologist: Sanjeev Baires MD Study ready at 23:31 and initial results transmitted at 01:16 Discharge Plan Visit Data Chief Complaint: Fall Stated Complaint: FALL/KNEE,ANKLE,SHOULDER PAIN ED Provider: Alan Ventura Discharge Problem: Falls frequently, Contusion of right shoulder, Contusion of knee, right, Contusion of foot, right, Closed fracture of right knee region, Closed left fibular fracture Patient Disposition: Admitted As Inpatient Condition: Good Discharge Instructions Interventions: ED Discharge Assessment Last Done: 12/06/20 04:48
[2020-12-05 23:00] LABS: Basophils # (auto) 0.02 K/uL (0-0.2); Basophils % (auto) 0.2 %; Eosinophils # (auto) 0.04 K/uL (0-0.5); Eosinophils % (auto) 0.3 %; Hematocrit (blood only) 34.4 % (37-47); Hemoglobin 11.1 g/dL (12.0-16.0); Immature Granulocytes # (auto) 0.03 K/uL (0.00-0.02); Immature Granulocytes % (auto) 0.2 %; Lymphocytes # (auto) 1.61 K/uL (1.2-3.4); Lymphocytes % (auto) 12.5 %; Mean Corpuscular Hemoglobin 32.9 pg (25-34); Mean Corpuscular Hgb Conc 32.3 g/dL (32-36); Mean Corpuscular Volume 102.1 fL (80-100); Mean Platelet Volume 12.2 fL (7.4-10.4); Monocytes # (auto) 1.17 K/uL (0.11-0.59); Monocytes % (auto) 9.1 %; Neutrophils # (auto) 10.04 K/uL (1.4-6.5); Neutrophils % (auto) 77.7 %; Platelet Count 160 K/uL (130-400); RDW Coefficient of Variation 15.1 % (11.5-14.5); RDW Standard Deviation 56.1 fL (36.4-46.3); Red Blood Count 3.37 M/uL (4.2-5.4); White Blood Count 12.91 K/uL (4.8-10.8)
[2020-12-05 23:10] LABS: Prothrombin Time 10.2 Seconds (9.0-12.0)
[2020-12-05 23:35] LABS: Albumin Globulin Ratio 0.9 (0.9-2); Albumin Level 3.2 gm/dl (3.4-5.0); BUN Creatinine Ratio 4.8 (10-20); Bilirubin,Total 0.4 mg/dl (0.2-1); Calcium 9.7 mg/dl (8.5-10.1); Creatinine Clr Calc Pharmacy 8.8 ml/min; Est GFR (African American) 7.9 ml/min; Est GFR (Non-African American) 6.8 ml/min; Globulin 3.7 gm/dl (2.5-4.0); Potassium 4.3 mmol/L (3.5-5.1); Thyroid Stimulating Hormone 1.58 uIu/ml (0.300-4.500); Total Protein 6.9 gm/dl (6.4-8.2)
[2020-12-06] MEDS ORDERED: MoRPHine SULFATE 4 MG/ML 1 ML CARP\\VIAL IV STA (00:43)
[2020-12-06] MEDS ORDERED: ONDANSETRON INJ 2 MG/ML 2 ML VIAL IV STA (00:43)
[2020-12-06 02:24] LABS: Troponin I 0.029 ng/ml (0-0.045)
--- NOTE | 2020-12-06 04:02 | History and Physical Report ---
DATE OF ADMISSION: 12/06/2020 CHIEF COMPLAINT: Status post fall. HISTORY OF PRESENT ILLNESS: A 75-year-old female with past medical history significant for end-stage renal disease, on hemodialysis, history of hyperlipidemia, chronic gout, history of sleep apnea, uses oxygen 2.5 liters at nighttime and also during dialysis, cerebral amyloid angiopathy, chronic atrial fibrillation, hypertension, CAD, pulmonary hypertension, morbid obesity, irritable bowel syndrome, history of osteoarthritis, posttraumatic seizures, history of CVA, history of intracranial hemorrhage, history of IN, history of fall, history of spinal stenosis of lumbar region. The patient lives in an apartment in [place]. She says she is falling frequently lately. She uses walker. She was going to get to her sister's car when she fell on the cement today and she says she fell on the right side, knee pain and not able to put weight on the legs. She was brought in here. In the ER she has a mild temperature. The patient still makes urine. Denies any burning micturition. Mild leukocytosis. Imaging studies were done. Question of right knee fibular fracture, but we are waiting for the official report. Currently, resting comfortably, hemodynamically stable. Denies any chest pain, no shortness of breath, no cough, no fever, no headache, no blurred vision, no earache, no runny nose, no sore throat, no dysphagia. Appetite is okay. Normal bowel movements. ALLERGIES: LISINOPRIL, VERAPAMIL. PAST MEDICAL HISTORY: As mentioned above. PAST SURGICAL HISTORY: Left knee arthroplasty, left thrombectomy embolectomy axillary artery, AV fistula, left heart catheterization, , colonoscopy, right heart catheterization, insertion of tunneled catheter, AV fistulogram and stent and angioplasty, left knee arthroscopy, tonsillectomy, cholecystectomy, sinus surgery. MEDICATIONS: The patient is on Tylenol 650 mg p.o. q. 4 hours p.r.n., allopurinol 450 mg p.o. daily, amlodipine 5 mg p.o. daily, aspirin 81 mg p.o. daily, atorvastatin 80 mg p.o. daily, clonidine 0.2 mg p.o. b.i.d., lanthanum 1000 mg p.o. t.i.d., Keppra 500 mg p.o. b.i.d. on nondialysis days and t.i.d. on dialysis days, metoprolol succinate 100 mg p.o. b.i.d., trazodone 25 mg p.o. at bedtime. FAMILY HISTORY: Significant for father has arthritis, stomach cancer, lung disorder, gout. Brother has osteoarthritis, mother has heart disorder. SOCIAL HISTORY: , lives in an apartment alone. No smoking, no alcohol, no drug use. REVIEW OF SYSTEMS: As per HPI. Rest of review of systems is negative. PHYSICAL EXAMINATION: GENERAL: The patient is morbidly obese, not in acute distress. VITAL SIGNS: Temperature 37.7, pulse 89, respiratory rate 21, blood pressure 120/65, oxygen 99% on 2 liters. HEENT: Pupils equal, round and reactive to light. Oral mucosa moist. NECK: No JVD, no neck masses. HEART: S1 and S2 heard. Regular rate and rhythm. No murmur, no gallop. RESPIRATORY SYSTEM: Normal AP diameter. No accessory muscle use. No wheezing, no crackles. ABDOMEN: Soft, bowel sounds present, nontender, no distention. CENTRAL NERVOUS SYSTEM: Cranial nerves II-XII are grossly intact, nonfocal. EXTREMITIES: No edema, no erythema seen. LABORATORY DATA: WBC is 12.9, hemoglobin 11.1, hematocrit 34.4, platelets 160. PT 10.2, INR 1, APTT 25. Sodium 137, potassium 4.3, chloride 101, bicarbonate 30, BUN 27, creatinine 5.5, serum glucose 175, calcium 9.7, magnesium 2, total bilirubin 0.4, AST 14, ALT 15, alkaline phosphatase 73. Troponin 0.029. TSH 1.5. IMAGING DATA: Chest x-ray, no acute findings seen. CT of the head, moderate diffuse periventricular and deep white matter low density and mid volume loss consistent with chronic small vessel disease, old lacunar infarct in the left subinsular region measuring 7 mm and old infarct in left frontal lobe measuring approximately 1.7 cm, unchanged. No evidence of acute large vessel infarct or intracranial hemorrhage, no skull fracture or scalp hematoma. Cervical spine CT, preliminary report, moderate to severe multilevel loss of disk space height, and osteophytosis throughout the cervical spine, moderate degenerative change of the atlantodental joint seen throughout the facet joints, greatest on the right C3 and C3-C4 levels. EKG: Atrial fibrillation, rate and rhythm. Nonspecific ST abnormalities. No significant change was found. ASSESSMENT AND PLAN: This is a 75-year-old female who presents with frequent falls and fall today and ambulatory dysfunction. 1. Frequent falls, fall today and ambulatory dysfunction. We will follow the final report of the imaging studies. We will also get a CT scan of the bilateral knees as patient complains of knee pain and follow the results,. Based on the results if needed we will consult orthopedics as well as PT, OT. Monitor in the medical floor. 2. Fever and leukocytosis. Follow blood cultures, urinalysis for any signs of infection. 3. End-stage renal disease, hemodialysis. She is due for dialysis on Monday. So if patient is still here on Monday we will consult nephrology. 4. Hypertension: On clonidine, amlodipine and Toprol-XL. We will monitor the blood pressure. 5. History of atrial fibrillation. On Toprol-XL,No longer on Coumadin because of intracranial bleed in the past. 6. History of posttraumatic seizures on home Keppra. 7. History of nocturnal hypoxia, on oxygen. 8. History of gout, on allopurinol. 9. History of hyperlipidemia, on statin. 10. History of coronary artery disease. On aspirin, statin, and beta marlee. 11. Morbid obesity: Needs counseling. 12. Deep venous thrombosis prophylaxis, we will place her on heparin subQ for now. DISPOSITION: Closely monitor in the medical floor. PT/OT prior to discharge. Social service to help with discharge planning. Job ID: [id number] [facility]PITALLacey
[2020-12-06] MEDS ORDERED: levETIRAcetam 500 MG TAB PO ONE (06:30)
--- NOTE | 2020-12-06 06:50 | CT Scan Report ---
CT SCAN OF THE BRAIN WITHOUT IV CONTRAST CLINICAL HISTORY: Fall. COMPARISON STUDY: CT of the brain dated 10/10/2019. TECHNIQUE: Unenhanced axial CT scan of the brain is performed from the vertex to the skull base. A do se lowering technique was utilized adhering to the principles of ALARA. CT DOSE: 970.88 mGy.cm FINDINGS: Brain parenchyma: There are age-related involutional changes noting moderate to advanced subcortical and periventricular microangiopathic change. There is no hemorrhage, mass effect, or evidence of acu te territorial ischemia by CT criteria. Small chronic lacunar infarcts are noted in the basal ganglia , both cerebellar hemispheres, and the right thalamus Almazan-white matter differentiation is preserved. No extra-axial fluid collection is seen. Ventricles, sulci, cisterns: Prominent secondary to involutional change. Intracranial vasculature: There is atherosclerotic calcification of the cavernous carotid arteries. Calvarium: The skeletal structures are osteopenic. There is no depressed calvarial fracture. Sinuses and mastoids: The paranasal sinuses are clear. The mastoid air cells are well pneumatized. Orbits: The bony orbits are grossly intact. IMPRESSION: There is no hemorrhage, mass effect, or evidence of acute territorial ischemia by CT sydni cruz. ACT 112: Negative or not required by law. Electronically signed by: Derrek Magallon M.D. 12/06/2020 6:48 AM
--- NOTE | 2020-12-06 07:32 | Electrocardiogram Report ---
Test Reason : Blood Pressure : / mmHG Vent. Rate : 093 BPM Atrial Rate : 097 BPM P-R Int : 000 ms QRS Dur : 086 ms QT Int : 362 ms P-R-T Axes : 000 008 242 degrees QTc Int : 450 ms Atrial fibrillation Nonspecific ST and T wave abnormality Abnormal ECG When compared with ECG of 10-OCT-2019 05:16, No significant change was found Confirmed by Walter Bay ([id number]) on 12/06/2020 7:31:41 AM Referred By: REFERRED SELF Confirmed By:Elpidio Bay
[2020-12-06] MEDS: HYDROmorphone INJ 0.5 MG/0.5 ML SYR IV PRN ×2 (07:34→22:07)
--- NOTE | 2020-12-06 07:50 | XRay Report ---
XR shoulder RT min 2V routine CLINICAL HISTORY: fall COMPARISON: None. DISCUSSION: No definite acute fracture or dislocation seen. Evaluation is limited due to severe diffuse osteopeni a. Degenerative changes of the spine are partially seen. IMPRESSION: No definite acute fracture or dislocation. ACT 112: Negative or not required by law. The above report was generated using voice recognition software. It may contain grammatical, syntax o r spelling errors. Electronically signed by: Nini Sommers DO 12/06/2020 7:48 AM
--- NOTE | 2020-12-06 07:52 | XRay Report ---
XR hip RT 2V w pelvis CLINICAL HISTORY: fall COMPARISON: None. DISCUSSION: No definite acute fracture dislocation seen however evaluation is significantly limited due to severe diffuse osteopenia. Degenerative changes of the bilateral hip joints and at enthesopathy is seen. Heavy vascular calcifications and extensive amount of stool is seen. Large amount of stool within pel ana region could represent fecal impaction. IMPRESSION: 1. No acute fracture or dislocation, significantly limited exam. 2. Severe atherosclerosis. 3. Fecal impaction. ACT 112: Negative or not required by law. The above report was generated using voice recognition software. It may contain grammatical, syntax o r spelling errors. Electronically signed by: Nini Sommers DO 12/06/2020 7:51 AM
--- NOTE | 2020-12-06 07:53 | XRay Report ---
XR knee RT 1 or 2V routine CLINICAL HISTORY: fall COMPARISON: None. DISCUSSION: No definite acute fracture dislocation seen. Severe degenerative changes of the knee is seen with narrowing of medial compartment of the knee join t was subchondral sclerosis and osteophytes. Evaluation is limited due to severe diffuse osteopenia and prominent soft tissue edema. Heavy vascular calcifications are seen. IMPRESSION: No definite acute fracture or dislocation. Limited exam. ACT 112: Negative or not required by law. The above report was generated using voice recognition software. It may contain grammatical, syntax o r spelling errors. Electronically signed by: Nini Sommers DO 12/06/2020 7:52 AM
--- NOTE | 2020-12-06 07:57 | XRay Report ---
XR foot RT min 3V routine CLINICAL HISTORY: fall COMPARISON: None. DISCUSSION: No definite acute fracture or dislocation seen. Evaluation is limited due to diffuse severe osteopenia. Severe degenerative changes of the tarsometatarsal region and at the first metatarsophalangeal joint are seen. Plantar and posterior calcaneal spurs are seen. Diffuse soft tissue edema and heavy vascular calcifications are seen. IMPRESSION: No acute fracture or dislocation. The rest of findings as above. ACT 112: Negative or not required by law. The above report was generated using voice recognition software. It may contain grammatical, syntax o r spelling errors. Electronically signed by: Nini Sommers DO 12/06/2020 7:55 AM
--- NOTE | 2020-12-06 08:23 | CT Scan Report ---
CT SCAN OF THE CERVICAL SPINE CLINICAL HISTORY: Trauma. Fall. COMPARISON STUDY: CT of the cervical spine dated 07/05/2019. TECHNIQUE: CT scan of the cervical spine is performed from the skull base to the upper thoracic spine . Images are reviewed in the axial, sagittal, and coronal planes. IV contrast was not administered fo r this examination. A dose lowering technique was utilized adhering to the principles of ALARA. FINDINGS: Skeletal structures: The skeletal structures are osteopenic. There is no evidence of fracture or subl uxation involving the cervical spine. Vertebral body height and alignment are maintained. There is st raightening of the cervical lordosis. Anterior osteophytes are seen throughout. The odontoid process and lateral masses are intact. The atlantoaxial articulation is preserved noting advanced productive degenerative change. The spinous processes appear intact. There is moderate to advanced multilevel ce rvical spondylosis. Uncovertebral and facet arthropathy contribute to neural foraminal stenosis at mo st levels. Intervertebral discs: Moderate to severe disc space narrowing is seen at C4-C5 and C5-C6. Mild disc s pace narrowing is seen at the remaining cervical levels. Central canal: Large posterior disc osteophyte complexes are seen at all cervical levels. These contr ibute to multilevel acquired compromise of the central canal. Soft tissues: The prevertebral and paraspinous soft tissues are within normal limits. Low-attenuation thyroid nodules and calcifications measure up to 1 cm. These are unchanged. There is advanced athero sclerotic calcification of the carotid bulbs. Calvarium: The visualized calvarium at the skull base appears intact. Brain parenchyma: Partially visualized brain parenchyma at the skull base is within normal limits. Sinuses and mastoids: The visualized paranasal sinuses are clear. The mastoid air cells are well pneu matized. Cerumen fills the external auditory canals. Lung apices: Clear as visualized. IMPRESSION: 1. There is no evidence of fracture or subluxation involving the cervical spine. 2. Osteopenia and spondylotic change as above. ACT 112: Negative or not required by law. Electronically signed by: Derrek Magallon M.D. 12/06/2020 8:22 AM
--- NOTE | 2020-12-06 08:32 | XRay Report ---
XR chest 1V portable CLINICAL HISTORY: weakness COMPARISON STUDY: October 10, 2019 FINDINGS: No pneumothorax. No pleural effusion. Few linear density at the left costophrenic angle could represent small atelectasis or infiltrate. Cardiomediastinal silhouette is mildly enlarged. Aorta is calcified. Enlargement of the right shweta and mild pulmonary vascular congestion is seen.. Osseous structures: Degenerative changes of the spine. IMPRESSION: 1. Cardiomegaly. Pulmonary vascular congestion. 2. Small atelectasis or infiltrate at the left base. ACT 112: Negative or not required by law. The above report was generated using voice recognition software. It may contain grammatical, syntax o r spelling errors. Electronically signed by: Nini Sommers DO 12/06/2020 8:31 AM
[2020-12-06] MEDS: ATORVASTATIN 40 MG TAB PO SCH (08:40)
[2020-12-06] MEDS: ASPIRIN 81 MG ECTAB PO SCH (08:40)
[2020-12-06] MEDS: amLODIPine BESYLATE 5 MG TAB PO SCH (08:40)
[2020-12-06] MEDS: METOPROLOL SUCC 50MG EXT REL TAB PO SCH ×2 (08:41→20:41)
[2020-12-06] MEDS: allopurinoL 300 MG TAB PO SCH (08:42)
[2020-12-06] MEDS: cloNIDine HCL 0.1 MG TAB PO SCH ×2 (08:42→20:40)
[2020-12-06] MEDS: HEPARIN SOD 5,000 UNIT/0.5 ML VIAL SQ SCH ×2 (08:43→20:41)
[2020-12-06] MEDS: levETIRAcetam 500 MG TAB PO SCH ×2 (08:43→12:03)
--- NOTE | 2020-12-06 08:52 | CT Scan Report ---
CT SCAN OF THE RIGHT KNEE WITHOUT IV CONTRAST CLINICAL HISTORY: Fall with right-sided knee pain. COMPARISON STUDY: Radiographs of the right knee dated 12/05/2020. TECHNIQUE: CT scan of the right knee is performed from the distal femur to the proximal tibia and fib joe. Images are reviewed in the axial, sagittal, and coronal planes. IV contrast not administered for this examination. A dose lowering technique was utilized adhering to the principles of ALARA. FINDINGS: The skeletal structures are osteopenic. Question a fractured osteophyte along the posterior aspect of the medial femoral condyle on axial image #163. There is trace overlying hemorrhage. No ad ditional findings are concerning for acute fracture. There is tricompartmental degenerative joint spa ce narrowing. Chondrocalcinosis is noted in the medial and lateral compartments. Degenerative scleros is and subchondral cyst formation is noted along the weightbearing surface the medial compartment. Th ere are large marginal osteophytes and patellar enthesophytes. There is a small joint effusion. Gener alized atrophy is noted in the regional musculature. Advanced atherosclerotic calcification is seen i n the regional arteries. The overlying soft tissues are normal as visualized. No hematoma is seen. IMPRESSION: 1. Question a fractured osteophyte along the posterior aspect of the medial femoral condyle with over lying hemorrhage. Correlate for point tenderness. 2. No additional fracture is identified. 3. Osteopenia, degenerative change, and chondrocalcinosis as above. ACT 112: Negative or not required by law. Electronically signed by: Derrek Magallon M.D. 12/06/2020 8:51 AM
--- NOTE | 2020-12-06 09:01 | CT Scan Report ---
CT SCAN OF THE LEFT KNEE WITHOUT IV CONTRAST CLINICAL HISTORY: Fall with left knee pain. COMPARISON STUDY: No priors. TECHNIQUE: CT scan of the left knee is performed from the distal femur to the proximal tibia and fib joe. Images are reviewed in the axial, sagittal, and coronal planes. IV contrast was not administered for this examination. A dose lowering technique was utilized adhering to the principles of AKIN. N adilsone that interpretation is suboptimal without plain film correlate. The examination is compromised by severe streak artifact from a left knee arthroplasty. CT DOSE: 504.62 mGy.cm FINDINGS: The skeletal structures are osteopenic. A left knee arthroplasty is in near-anatomic alignm ent. No periprosthetic lucency is seen. There has been undersurface remodeling of the patella. There is an acute and comminuted fracture of the fibular head and neck with overlying hemorrhage. The dista l femur and proximal tibia appear intact. There is a small joint effusion. Generalized atrophy is not ed in the regional musculature. There is advanced atherosclerotic calcification of the regional arter ies. No large hematoma is identified. IMPRESSION: 1. There is a comminuted fracture of the left fibular head and neck with surrounding hemorrhage. 2. No additional fracture is clearly identified. 3. A left knee arthroplasty is in place. ACT 112: Negative or not required by law. Electronically signed by: Derrek Magallon M.D. 12/06/2020 9:00 AM
--- NOTE | 2020-12-06 14:10 | Communication Note ---
Date of Service: December 06, 2020 Patient admitted today History as detailed in H&P by Dr Mcnally, notable for 75-year-old female who presents with frequent falls and ambulatory dysfunction. Patient reports pain in both knees Patient seen and examined Physical exam notable for tenderness over both knees Knee CT reports Comminuted fracture left fibula with surrounding hemorrhage and ?Fractured osteophyte along posterior aspect of medial condyle -Falls -Left fibular fracture -Ambulatory dysfunction Ortho consult Pain control Will eventually get PT/OT eval. Will await ortho full evaluation Agree with other plans as detailed by Dr Mcnally in H&P this morning
--- NOTE | 2020-12-06 14:34 | XRay Report ---
RIGHT TIBIA AND FIBULA 2 VIEWS; RIGHT ANKLE 3 VIEWS CLINICAL HISTORY: Fall. Right leg injury. FINDINGS: AP and lateral views of the right tibia and fibula with 3 additional views of the right ank le are obtained. Correlation is made with radiographs of the right foot and knee dated 12/05/2020. The skeletal structures are osteopenic. There is no radiographic evidence of right tibial or fibular frac ture. Degenerative change is noted in the partially imaged knee joint. The ankle mortise is intact. S oft tissue edema is present throughout the right lower extremity and around the ankle. There are larg e dorsal and plantar calcaneal enthesophytes. There is an age indeterminant avulsion fracture along t he dorsal aspect of the talus. Degenerative spurring is seen along the dorsal aspect of the tarsal alan lisandro. There are large dorsal and plantar calcaneal enthesophytes. Calcification is seen along the cour se of the distal Achilles tendon. Advanced atherosclerotic calcification is noted in the regional art eries. IMPRESSION: 1. Soft tissue swelling with no radiographic evidence of right tibial or fibular fracture. 2. No fracture is seen at the ankle joint. 3. There is an age indeterminant avulsion fracture along the dorsal aspect of the talus which appears acute to subacute. Correlate for point tenderness. 4. Large heel spurs. 5. Additional findings as above. Electronically signed by: Derrek Magallon M.D. 12/06/2020 2:33 PM
--- NOTE | 2020-12-06 15:53 | Orthopedic Progress Note ---
Date of Service December 06, 2020 Assessment & Plan (1) Joint pain of lower extremity: (2) Closed left fibular fracture: Acute proximal fibula fracture, nondisplaced, with stable ankle mortise. Diffuse bilateral ankle and knee pain with history of gout. - WBAT and ROMAT, may need assist device (walker) for pain related to fibula. Does not need fracture boot, which would put at increased risk of additional falls. - Diffuse ankle pain with exquisite and diffuse tenderness concerning for gout flare. - Recommend pain control directed at inflammatory arthritis and mobilization/evaluation with PT/OT for suitability for discharge home vs rehab/fpc facility. - We will sign off for now, will follow peripherally. Contact with further questions. Subjective 75-year-old female with a complicated past medical history and recent fall problem admitted to the hospital because of a fall and report of a proximal fibular fracture on the left. She has a history of left total knee arthroplasty. Patient cannot provide much additional history, but the chart was reviewed in detail. She was uncertain if she twisted her ankle or impacted her knee. She stated that she just wants to know if she needed surgery or if she can go home. Review of Systems All systems reviewed & are unremarkable except as noted in HPI & below. Physical Exam General: She was sleeping upon arrival but easily aroused. She was oriented to person and place. She was cooperative on exam. Right lower extremity: There is no areas of erythema or warmth about the knee or ankle. There was no tenderness about the knee and she tolerated passive range of motion and palpation. The ankle had exquisite tenderness diffusely, medially laterally and posteriorly. She was able to actively range her tibiotalar and subtalar joints. Sensation is grossly intact to light touch and I could palpate DP pulses. She was nontender along the proximal fibula. Left lower extremity: Left knee had a longitudinal scar consistent with a total knee replacement. There is no palpable effusion, erythema or warmth about the knee. She had exquisite tenderness at the site of the proximal fibular fracture. There is no ecchymosis in this area. She is able to perform it straight leg raise. She actively range the ankle. She had exquisite tenderness about the medial and lateral malleoli but a negative tilt and drawer test. She seemed to tolerate supination external rotation. There is no evidence of syndesmotic disruption on exam. Bilateral upper extremities: She had full active range of motion of her shoulders and elbows and wrists and digits. Constitutional WD/WN, vitals as above no acute distress and not intoxicated appearing Respiratory normal respiratory effort; no labored breathing Cardiovascular Extremities: normal capillary refill Results & Data Results & Data Laboratory Results . Laboratory Tests 12/05/20 12/05/20 22:46 22:46 WBC 12.91 H Creatinine 5.56 H* Glucose 175 H Diagnostic Findings Radiographs: X-rays were reviewed of the right shoulder, right knee, right foot. I order additional views of the bilateral ankles and tibia-fibula. These x- rays are without acute findings but do show diffuse osteopenia and degenerative changes in multiple joints. Bilateral CT scans of the knees were reviewed as well as radiologist interpretation. There are no acute findings on the right. The left knee CT demonstrates a proximal fibula fracture that is minimally displaced and oblique in nature. There is a small amount of hemorrhage about it indicating some acuity. Importantly, the tibia-fibula and ankle x-rays do not demonstrate any widening of the ankle mortise that would be consistent with a Maisonneuve fracture. PG Care Time/CCT Total # of Minutes Spent Total Time Spent with Patient: Total time spent is greater than 50% in coordination of care (as documented) at patient's floor/unit and/or counseling patient: Coding Level of Care Code 73864 Subseq Hosp Care Lvl 3 Diagnoses Joint pain of lower extremity M25.50 Closed left fibular fracture S82.832A Encounter type: initial encounter Fibula location: proximal Fracture morphology: unspecified fracture morphology (1) Closed left fibular fracture Encounter type: initial encounter Fibula location: proximal Fracture morphology: unspecified fracture morphology Qualified Code(s): S82.832A - Other fracture of upper and lower end of left fibula, initial encounter for closed fracture
[2020-12-06] MEDS: LANTHANUM CARBONATE PO SCH ×2 (16:39→20:41)
--- NOTE | 2020-12-06 18:15 | XRay Report ---
LEFT TIBIA AND FIBULA 2 VIEWS; LEFT ANKLE 3 VIEWS CLINICAL HISTORY: Fibular fracture. FINDINGS: AP and lateral views of the left tibia and fibula with 3 additional views of the left ankle are obtained. Correlation is made with CT scan of the left knee performed the same day 12/06/2020. The skeletal structures are osteopenic. A left knee arthroplasty is in near anatomic alignment. No perip rosthetic lucency is identified. There is a comminuted fracture of the left fibular head and neck wit h overlying soft tissue edema. Milder soft tissue edema seen throughout the remainder of the foot and ankle. Question age indeterminant fracture along the inferior aspect of the lateral malleolus. No ti bial fracture is identified. The ankle mortise appears intact. There is no ankle joint effusion. Larg e dorsal and plantar calcaneal enthesophytes are noted. Soft tissue calcification is seen at the inse rtion of the Achilles tendon. There is advanced atherosclerotic calcification of the regional arterie s. Degenerative spurring is seen along the dorsal aspect of the tarsal bones. IMPRESSION: 1. There is a comminuted fracture of the left fibular head and neck. 2. Question age indeterminant fracture at the base of the lateral malleolus. 3. No tibial fracture is seen. 4. The ankle mortise is intact. 5. Soft tissue edema is seen throughout the left lower extremity. Electronically signed by: Derrek Magallon M.D. 12/06/2020 6:14 PM
[2020-12-06] MEDS: traZODone HCL 50 MG TAB PO SCH (20:42)
[2020-12-07] MEDS ORDERED: IBUPROFEN 200 MG TAB PO PRN (08:23)
[2020-12-07] MEDS: allopurinoL 300 MG TAB PO SCH (09:05)
[2020-12-07] MEDS: amLODIPine BESYLATE 5 MG TAB PO SCH (09:06)
[2020-12-07] MEDS: ACETAMINOPHEN 500 MG TAB PO SCH ×3 (09:06→23:53)
[2020-12-07] MEDS: cloNIDine HCL 0.1 MG TAB PO SCH ×2 (09:07→20:23)
[2020-12-07] MEDS: ATORVASTATIN 40 MG TAB PO SCH (09:07)
[2020-12-07] MEDS: ASPIRIN 81 MG ECTAB PO SCH (09:07)
[2020-12-07] MEDS: HEPARIN SOD 5,000 UNIT/0.5 ML VIAL SQ SCH ×2 (09:08→20:26)
[2020-12-07] MEDS: METOPROLOL SUCC 50MG EXT REL TAB PO SCH ×2 (09:09→20:24)
[2020-12-07] MEDS: LANTHANUM CARBONATE PO SCH ×4 (09:09→20:25)
--- NOTE | 2020-12-07 10:44 | Hospitalist Progress Note ---
Date of Service December 07, 2020 Assessment & Plan (1) Falls frequently: (2) Closed left fibular fracture: (3) Contusion of knee, right: Plan: CT and XRays reviewed Patient has comminuted left fibular fracture. Was evaluated by orthopedic surgeon who did not recommend any surgical management at this time. PT/OT evaluation Patient will likely need rehab/SNF Pain control (4) Atrial fibrillation: Plan: Rate controlled Continue Toprol-XL Hypothyroidism no longer be on Coumadin because of intracranial bleed in the past (5) CAD (coronary artery disease): Plan: Continue aspirin, statin (6) ESRD (end stage renal disease) on dialysis: Plan: Nephrology consult for HD. Patient had declined a.m. labs this morning and yesterday. Counseled patient on need for labs. She agreed Gets HD MWF Admission and Anticipated Discharge Date Admission Date: December 06, 2020 Subjective 75-year-old female who presents with frequent falls and ambulatory dysfunction. Found to have left fibular fracture Patient seen and examined this morning. Reports bilateral knee pain is controlled. Denies any other complaints Review of Systems Constitutional: no fever and no chills Eyes: no problem reported Ear, Nose, Mouth, Throat: no problem reported Respiratory: no cough and no dyspnea Cardiovascular: no chest pain, no dyspnea and no palpitations Gastrointestinal: no abdominal pain, no nausea and no vomiting Genitourinary: no dysuria and no urinary frequency Musculoskeletal: +Bilateral knee pain Neurologic: no dizziness and no headache(s) Psychiatric: no depression and no anxiety Physical Exam Constitutional: + well hydrated and + obese; no acute distress Eyes: PERRL, conjunctivae normal, anicteric sclerae ENMT: external ear and nose normal, oropharynx normal Respiratory: normal respiratory effort, lungs clear to auscultation On nasal oxygen Cardiovascular: Rate/Rhythm: regular rate and regular rhythm S1 S2 Gastrointestinal (Abdomen): normal bowel sounds, soft, nontender, no hepatosplenomegaly Musculoskeletal: Bilateral knee tenderness (Left>Right). No ecchymoses noted on knee Neurologic: PERRL, EOMI, accommodation nl, no face palsy, no dysarthria Psychiatric: A+Ox3, euthymic affect Results & Data Results & Data ([facility]) Vital Signs (Past 12 Hours) Vital Signs Temp Pulse Resp BP Pulse Ox 12/07/20 07:30 36.9 C 53 L 18 107/71 96 Laboratory Results Abnormal lab results 12/07/20 12/07/20 12/07/20 Range/Units 11:20 11:20 11:20 RBC 2.81 L (4.2-5.4) M/uL Hgb 9.1 L (12.0-16.0) g/dL Hct 28.8 L (37-47) % MCV 102.5 H (80-100) fL MCHC 31.6 L (32-36) g/dL RDW Std Deviation 57.0 H (36.4-46.3) fL RDW Coeff of Edin 15.1 H (11.5-14.5) % MPV 12.5 H (7.4-10.4) fL Sodium 132 L (136-145) mmol/L Potassium 6.0 H D (3.5-5.1) mmol/L BUN 44 H D (7-18) mg/dl Creatinine 8.20 H* D (0.6-1.2) mg/dl BUN/Creatinine Ratio 5.4 L (10-20) Glucose 138 H (70-99) mg/dl Hep Bs Antibody, Quant 7.07 L (>or=10mIU/mL Immune) mIU/mL (1) Closed left fibular fracture Encounter type: initial encounter Fibula location: proximal Fracture morphology: unspecified fracture morphology Qualified Code(s): S82.832A - Other fracture of upper and lower end of left fibula, initial encounter for closed fracture (2) Contusion of knee, right Encounter type: initial encounter Qualified Code(s): S80.01XA - Contusion of right knee, initial encounter
[2020-12-07] MEDS ORDERED: SODIUM CHLORIDE 0.9% 1000ML 1,000 ML IV PRN (10:53)
[2020-12-07] MEDS: levETIRAcetam 500 MG TAB PO SCH ×3 (11:17→16:56)
[2020-12-07] MEDS ORDERED: EPOETIN ALFA 4,000 UNIT/ML VIAL IV ONE (11:30)
[2020-12-07 11:39] LABS: Hematocrit (blood only) 28.8 % (37-47); Hemoglobin 9.1 g/dL (12.0-16.0); Mean Corpuscular Hemoglobin 32.4 pg (25-34); Mean Corpuscular Hgb Conc 31.6 g/dL (32-36); Mean Corpuscular Volume 102.5 fL (80-100); Mean Platelet Volume 12.5 fL (7.4-10.4); Platelet Count 133 K/uL (130-400); RDW Coefficient of Variation 15.1 % (11.5-14.5); Red Blood Count 2.81 M/uL (4.2-5.4); White Blood Count 10.76 K/uL (4.8-10.8)
[2020-12-07 12:24] LABS: BUN Creatinine Ratio 5.4 (10-20); Calcium 8.8 mg/dl (8.5-10.1); Est GFR (African American) 4.9 ml/min; Est GFR (Non-African American) 4.3 ml/min
[2020-12-07 12:26] LABS: Hepatitis B Surf Ag Rflx Conf Neg (Neg)
[2020-12-07 12:35] LABS: Hepatitis B Surface Ab Quant 7.07 mIU/mL (>or=10mIU/mL Immune); Hepatitis B Surface Antibody Non-Immune
[2020-12-07] MEDS: traMADol HCL 50 MG TABLET PO PRN (13:18)
--- NOTE | 2020-12-07 15:07 | Consultation Report ---
REASON FOR CONSULTATION: Dialysis, patient admitted after a fall. HISTORY OF PRESENT ILLNESS: The patient is a 75-year-old female with endstage renal disease on hemod ialysis Monday, Monday, Monday in [place] with Dr. Leeanne Lanza as well as multiple other me dical problems. She presented to the hospital after she had a fall. She has had multiple episodes o f fall in the recent past. She was brought to the Emergency Department where she was found to have s ome fracture, but as of now, there is no surgical intervention planned. The patient is having some p ain. Her last dialysis was on Monday without any problem and she has AV fistula. At this time, her blood work is consistent with ESRD with no major electrolyte problem. She is due for dialysis later today. Denies any nausea, vomiting, chest pain, shortness of breath, orthopnea, PND. She does have s ome baseline lower extremity edema, which is no worse than usual. ALLERGIES: LISINOPRIL AND VERAPAMIL. PAST MEDICAL HISTORY: Includes ESRD on hemodialysis Monday, Monday, Monday; hyperlipidemia, gout, sleep apnea with chronic nighttime oxygen, cerebral amyloid angiopathy, chronic atrial fibrillation, hypertension, coronary artery disease, pulmonary hypertension, morbid obesity, irritable bowel syndr ome, osteoarthritis, posttraumatic seizure, history of CVA, history of intracranial hemorrhage, histo ry of SD, history of multiple falls, spinal stenosis. PAST SURGICAL HISTORY: Left knee arthroplasty, left thrombectomy, embolectomy, axillary artery AV fi stula, tunneled catheter AV fistula. MEDICATIONS AT HOME: Reviewed in detail and is as per the reconciliation list. FAMILY HISTORY: Significant for father with arthritis, stomach cancer, lung disorder, gout. Brother has osteoarthritis. Mother has heart disorder. SOCIAL HISTORY: , lives in an apartment alone. No smoking, alcohol, or drug use. REVIEW OF SYSTEMS: Already detailed in the HPI, unless stated otherwise 12 systems reviewed and nega tive other than fall and some associated pain. No other symptoms total 12 systems reviewed. PHYSICAL EXAMINATION: GENERAL: Elderly white female who is morbidly obese. She is not in any overt respiratory distress b ut she is in some pain. Awake, alert, oriented x3. HEENT: Mucous membrane is moist. NECK: Supple. No jugular venous distention. CHEST: Bilateral clear to auscultation. CARDIOVASCULAR: S1 and S2, regular. ABDOMEN: Soft, nontender, obese. EXTREMITIES: Shows trace to 1+ edema bilaterally related with obesity. VITAL SIGNS: Blood pressure 107/71, pulse rate 53, temperature 36.9, oxygen saturation 96% on 3 lite rs. LABORATORY DATA: Reviewed. Hemoglobin is 11.1. WBC count is 12.91, blood work last one was from 2 days ago, sodium 137, potassium 4.3, creatinine is 5.56. Albumin is 3.2. ASSESSMENT AND PLAN: A 75-year-old female with endstage renal disease on hemodialysis Monday, , Monday through AV fistula in [place] with Dr. Leeanne Lanza now admitted after a fall. She has sustained a fracture in her long bones, but she is not a candidate for surgical management at is time. 1. Endstage renal disease. She does not have any major electrolyte issue and is not very prone to d evelop electrolyte issues. We will do it for 3.5 hours of dialysis today on a 2K bath. She does not get heparin even as an outpatient and obviously now with the acute fracture, we will not be giving h eparin. She is very likely to be more anemic in the current setting and we will be giving Epogen 400 0 units with dialysis today. Her next dialysis will be on Monday, if she is still in the hospital . 2. Fall and fracture as per primary and Orthopedics. Job ID: [id number]
--- NOTE | 2020-12-07 16:52 | Orthopedic Progress Note ---
Date of Service December 07, 2020 Assessment & Plan (1) Joint pain of lower extremity: (2) Closed left fibular fracture: Acute proximal fibula fracture, nondisplaced, with stable ankle mortise. Diffuse bilateral ankle and knee pain with history of gout. No changes. Continue plan of care. - WBAT and ROMAT, may need assist device (walker) for pain related to fibula. Does not need fracture boot, which would put at increased risk of additional falls. - Recommend pain control directed at inflammatory arthritis and mobilization/evaluation with PT/OT for suitability for discharge home vs rehab/jail facility. - We will sign off for now, will follow peripherally. Subjective Seen and evaluated this afternoon. Patient reports no pain at rest. She states that she had not been out of bed yet. Review of Systems All systems reviewed & are unremarkable except as noted in HPI & below. Physical Exam General: Somnolent but easily arousable. Conversant when awake. Left lower extremity: Positive DF/PF/EHL. She can fully extend the knee. Positive tenderness over the fibular fracture. Less tender about the ankle today. No interval edema or ecchymosis. Right lower extremity: Full active range of motion ankle. Nontender about the knee. Constitutional WD/WN, vitals as above no acute distress and not intoxicated appearing Respiratory normal respiratory effort; no labored breathing Cardiovascular Extremities: normal capillary refill Results & Data Results & Data Laboratory Results . Diagnostic Findings . PG Care Time/CCT Total # of Minutes Spent Total Time Spent with Patient: Total time spent is greater than 50% in coordination of care (as documented) at patient's floor/unit and/or counseling patient: Coding Level of Care Code 03211 Subseq Hosp Care Lvl 3 Diagnoses Joint pain of lower extremity M25.50 Closed left fibular fracture S82.832A Encounter type: initial encounter Fibula location: proximal Fracture morphology: unspecified fracture morphology (1) Closed left fibular fracture Encounter type: initial encounter Fibula location: proximal Fracture morphology: unspecified fracture morphology Qualified Code(s): S82.832A - Other fracture of upper and lower end of left fibula, initial encounter for closed fracture
[2020-12-07] MEDS: traZODone HCL 50 MG TAB PO SCH (20:24)
[2020-12-08] MEDS: allopurinoL 300 MG TAB PO SCH (09:15)
[2020-12-08] MEDS: LANTHANUM CARBONATE PO SCH ×3 (09:15→21:38)
[2020-12-08] MEDS: ACETAMINOPHEN 500 MG TAB PO SCH ×3 (09:15→22:37)
[2020-12-08] MEDS: ATORVASTATIN 40 MG TAB PO SCH (09:16)
[2020-12-08] MEDS: ASPIRIN 81 MG ECTAB PO SCH (09:16)
[2020-12-08] MEDS: amLODIPine BESYLATE 5 MG TAB PO SCH (09:16)
[2020-12-08] MEDS: cloNIDine HCL 0.1 MG TAB PO SCH ×2 (09:17→21:37)
[2020-12-08] MEDS: HEPARIN SOD 5,000 UNIT/0.5 ML VIAL SQ SCH ×2 (09:17→21:37)
[2020-12-08] MEDS: levETIRAcetam 500 MG TAB PO SCH ×2 (09:17→12:20)
[2020-12-08] MEDS: METOPROLOL SUCC 50MG EXT REL TAB PO SCH ×2 (09:18→21:37)
--- NOTE | 2020-12-08 11:15 | Hospitalist Progress Note ---
Date of Service December 08, 2020 Assessment & Plan (1) Falls frequently: (2) Closed left fibular fracture: (3) Contusion of knee, right: Plan: CT and XRays reviewed Patient has comminuted left fibular fracture. Was evaluated by orthopedic surgeon who did not recommend any surgical management at this time. Awaiting PT/OT evaluation Patient will likely need rehab/SNF Pain control (4) Atrial fibrillation: Plan: Rate controlled Continue Toprol-XL Hypothyroidism no longer be on Coumadin because of intracranial bleed in the past (5) CAD (coronary artery disease): Plan: Continue aspirin, statin (6) ESRD (end stage renal disease) on dialysis: Plan: On HD MWF Admission and Anticipated Discharge Date Admission Date: December 06, 2020 Subjective 75-year-old female who presents with frequent falls and ambulatory dysfunction. Found to have left fibular fracture Patient seen and examined this morning. Pain controlled No new complaint Review of Systems Constitutional: no fever and no chills Eyes: no problem reported Ear, Nose, Mouth, Throat: no problem reported Respiratory: no cough and no dyspnea Cardiovascular: no chest pain, no dyspnea and no palpitations Gastrointestinal: no abdominal pain, no nausea and no vomiting Genitourinary: no dysuria and no urinary frequency Musculoskeletal: +Bilateral knee pain Neurologic: no dizziness and no headache(s) Psychiatric: no depression and no anxiety Physical Exam Constitutional: + well hydrated and + obese; no acute distress Eyes: PERRL, conjunctivae normal, anicteric sclerae ENMT: external ear and nose normal, oropharynx normal Respiratory: normal respiratory effort, lungs clear to auscultation Cardiovascular: Rate/Rhythm: regular rate and regular rhythm Gastrointestinal (Abdomen): normal bowel sounds, soft, nontender, no hepatosplenomegaly Musculoskeletal: Bilateral knee tenderness Neurologic: PERRL, EOMI, accommodation nl, no face palsy, no dysarthria Psychiatric: A+Ox3, euthymic affect Results & Data Results & Data ([facility]) Vital Signs (Past 12 Hours) Vital Signs Temp Pulse Resp BP Pulse Ox 12/08/20 07:46 100/67 12/08/20 07:16 36.8 C 80 16 88/56 L 99 (1) Closed left fibular fracture Encounter type: initial encounter Fibula location: proximal Fracture morphology: unspecified fracture morphology Qualified Code(s): S82.832A - Other fracture of upper and lower end of left fibula, initial encounter for closed fracture (2) Contusion of knee, right Encounter type: initial encounter Qualified Code(s): S80.01XA - Contusion of right knee, initial encounter
[2020-12-08] MEDS: traMADol HCL 50 MG TABLET PO PRN (18:54)
[2020-12-08] MEDS: traZODone HCL 50 MG TAB PO SCH (21:38)
[2020-12-09] MEDS ORDERED: SODIUM CHLORIDE 0.9% 1000ML 1,000 ML IV PRN (07:00)
[2020-12-09] MEDS ORDERED: EPOETIN ALFA 10,000 UNITS/ML VIAL IV SCH (07:00)
[2020-12-09] MEDS: allopurinoL 300 MG TAB PO SCH (09:11)
[2020-12-09] MEDS: ASPIRIN 81 MG ECTAB PO SCH (09:12)
[2020-12-09] MEDS: levETIRAcetam 500 MG TAB PO SCH ×3 (09:12→16:42)
[2020-12-09] MEDS: HEPARIN SOD 5,000 UNIT/0.5 ML VIAL SQ SCH ×2 (09:13→20:20)
[2020-12-09] MEDS: ACETAMINOPHEN 500 MG TAB PO SCH ×3 (09:13→23:15)
[2020-12-09] MEDS: ATORVASTATIN 40 MG TAB PO SCH (09:14)
[2020-12-09] MEDS: LANTHANUM CARBONATE PO SCH ×3 (09:55→20:18)
[2020-12-09] MEDS: amLODIPine BESYLATE 5 MG TAB PO SCH (09:56)
[2020-12-09] MEDS: METOPROLOL SUCC 50MG EXT REL TAB PO SCH ×2 (09:56→20:18)
[2020-12-09] MEDS: cloNIDine HCL 0.1 MG TAB PO SCH ×2 (09:57→20:18)
[2020-12-09 10:08] LABS: Creatinine Clr Calc Pharmacy 6.4 ml/min; Est GFR (African American) 5.3 ml/min; Est GFR (Non-African American) 4.6 ml/min; Potassium 4.7 mmol/L (3.5-5.1)
--- NOTE | 2020-12-09 19:04 | Hospitalist Progress Note ---
Date of Service December 09, 2020 Assessment & Plan (1) Falls frequently: (2) Closed left fibular fracture: (3) Contusion of knee, right: Plan: CT knee showed Question a fractured osteophyte along the posterior aspect of the medial femoral condyle with overlying hemorrhage. Correlate for point tenderness. Left Tibia and Fibula showed comminuted fracture of the left fibular head and neck. Question age indeterminant fracture at the base of the lateral malleolus. ortho on board recommended conservative management. No surgical intervention at this time as per Ortho Continue weightbearing as tolerated and ROMAT may need assist device (walker) for pain related to fibula. Does not need fracture boot, which would put at increased risk of additional falls. Continue pain control waiting for placement (4) Atrial fibrillation: Plan: Rate controlled with Toprol-XL Not on coumadin due to history of intracranial bleeding and history of frequent falls (5) CAD (coronary artery disease): Plan: Continue aspirin, statin (6) ESRD (end stage renal disease) on dialysis: Plan: On HD MWF Next HD schedule of Monday (12/11/20 Follow up with nephrology Nocturnal Hypoxia On chronic oxygen use at night Continue oxygen supplement at night and HS Hx Posttraumatic Seizure Hx Intracranial Hemorrhage Continue keppra 500mg Will D/C the tramadol due to seizure Continue seizure precaution Admission and Anticipated Discharge Date Admission Date: December 06, 2020 Subjective Pt was seen and examined for follow up of falls and ambulatory dysfunction. Lying in bed with no distress. Pt said that she does not have any pain as long as she does not move her leg She said that she cannot walk on her feet I spoke to daughter yesterday and provided with updates Denies any chest pain, palpitation, dizziness and SOB Physical Exam Physical Exam: General- No acute distress Head- atraumatic Eyes- PERRL, EOMI, ENT- oropharynx clear Neck- supple, no JVD Lungs- clear to auscultation Heart- regular rhythm; no murmur Abdomen- normal bowel sounds, soft, nontender Extremities- no calf tenderness, knees tenderness (Left>Right). No ecchymoses noted on knee Neuro- alert, oriented x 3; PERRL, EOMI; no facial palsy; no dysarthria Skin- warm & dry Results & Data Results & Data ([facility]) Vital Signs (Past 12 Hours) Vital Signs Temp Pulse Pulse Resp BP BP Pulse Ox 12/09/20 16:05 37.1 C 86 16 93/65 L 92 12/09/20 13:03 36.6 C 91 H 109/67 12/09/20 13:00 91 H 110/66 12/09/20 12:40 82 113/69 12/09/20 12:20 84 109/62 12/09/20 12:00 81 103/65 12/09/20 11:40 89 117/69 12/09/20 11:20 95 H 136/86 12/09/20 11:00 92 H 127/68 12/09/20 10:40 82 118/72 12/09/20 10:20 84 116/66 12/09/20 10:00 85 118/76 12/09/20 09:40 82 116/73 12/09/20 09:22 80 96/54 L 12/09/20 09:20 36.6 C 76 (1) Closed left fibular fracture Encounter type: initial encounter Fibula location: proximal Fracture morphology: unspecified fracture morphology Qualified Code(s): S82.832A - Other fracture of upper and lower end of left fibula, initial encounter for closed fracture (2) Contusion of knee, right Encounter type: initial encounter Qualified Code(s): S80.01XA - Contusion of right knee, initial encounter
[2020-12-09] MEDS: traZODone HCL 50 MG TAB PO SCH (20:18)
[2020-12-10] MEDS: ATORVASTATIN 40 MG TAB PO SCH (09:45)
[2020-12-10] MEDS: ACETAMINOPHEN 500 MG TAB PO SCH (09:45)
[2020-12-10] MEDS: cloNIDine HCL 0.1 MG TAB PO SCH (09:45)
[2020-12-10] MEDS: amLODIPine BESYLATE 5 MG TAB PO SCH (09:45)
[2020-12-10] MEDS: allopurinoL 300 MG TAB PO SCH (09:45)
[2020-12-10] MEDS: HEPARIN SOD 5,000 UNIT/0.5 ML VIAL SQ SCH (09:46)
[2020-12-10] MEDS: ASPIRIN 81 MG ECTAB PO SCH (09:46)
[2020-12-10] MEDS: METOPROLOL SUCC 50MG EXT REL TAB PO SCH (09:46)
[2020-12-10] MEDS: levETIRAcetam 500 MG TAB PO SCH ×2 (09:48→11:57)
[2020-12-10] MEDS: LANTHANUM CARBONATE PO SCH (09:48)
[2020-12-10] MEDS: traMADol HCL 50 MG TABLET PO PRN (11:57)
--- NOTE | 2020-12-10 12:14 | Discharge Summary ---
Date of Service December 10, 2020 Admission HPI Per Admitting Provider CHIEF COMPLAINT: Status post fall. HISTORY OF PRESENT ILLNESS: A 75-year-old female with past medical history significant for end-stage renal disease, on hemodialysis, history of hyperlipidemia, chronic gout, history of sleep apnea, uses oxygen 2.5 liters at nighttime and also during dialysis, cerebral amyloid angiopathy, chronic atrial fibrillation, hypertension, CAD, pulmonary hypertension, morbid obesity, ir ritable bowel syndrome, history of osteoarthritis, posttraumatic seizures, history of CVA, history of intracranial hemorrhage, history of NE, history of fall, history of spinal stenosis of lumbar region. The patient lives in an apartment in [place]. She says she is falling frequently lately. She uses walker. She was going to get to her sister's car when she fell on the cement today and she says she fell on the right side, knee pain and not able to put weight on the legs. She was brought in here. In the ER she has a mild temperature. The patient still makes urine. Denies any burning micturition. Mild leukocytosis. Imaging studies were done. Question of right knee fibular fracture, but we are waiting for the official report. Currently, resting comfortably, hemodynamically stable. Denies any chest pain, no shortness of breath, no cough, no fever, no headache, no blurred vision, no earache, no runny nose, no sore throat, no dysphagia. Appetite is okay. Normal bowel movements. Admission Exam Per Admitting Provider GENERAL: The patient is morbidly obese, not in acute distress. VITAL SIGNS: Temperature 37.7, pulse 89, respiratory rate 21, blood pressure 120/65, oxygen 99% on 2 liters. HEENT: Pupils equal, round and reactive to light. Oral mucosa moist. NECK: No JVD, no neck masses. HEART: S1 and S2 heard. Regular rate and rhythm. No murmur, no gallop. RESPIRATORY SYSTEM: Normal AP diameter. No accessory muscle use. No wheezing, no crackles. ABDOMEN: Soft, bowel sounds present, nontender, no distention. CENTRAL NERVOUS SYSTEM: Cranial nerves II-XII are grossly intact, nonfocal. EXTREMITIES: No edema, no erythema seen. Principal Diagnosis (1) Falls frequently: (2) Closed left fibular fracture: (3) Contusion of knee, right: (4) Atrial fibrillation: (5) CAD (coronary artery disease): (6) ESRD (end stage renal disease) on dialysis: Discharge Exam General- No acute distress Head- atraumatic Eyes- PERRL, EOMI, ENT- oropharynx clear Neck- supple, no JVD Lungs- clear to auscultation Heart- regular rhythm; no murmur Abdomen- normal bowel sounds, soft, nontender Extremities- no calf tenderness, knees tenderness (Left>Right). No ecchymoses noted on knee Neuro- alert, oriented x 3; PERRL, EOMI; no facial palsy; no dysarthria Skin- warm & dry Discharge Data Allergies Allergy/AdvReac Type Severity Reaction Status Date / Time verapamil Allergy Mild UNKNOWN Verified 12/05/20 23:09 lisinopril AdvReac Mild COUGH Verified 12/05/20 23:09 Consultations 12/06/20 01:44 ED Decision to Admit Stat 12/06/20 12:36 Consult Orthopedic Surgery Routine 12/07/20 08:21 Consult Nephrology Routine Ordered Studies 12/05/20 21:57 CT cervical spine wo con Urgent CT head/brain wo con Urgent 12/06/20 04:58 CT knee LT wo con Urgent CT knee RT wo con Urgent LEFT TIBIA AND FIBULA 2 VIEWS; LEFT ANKLE 3 VIEWS CLINICAL HISTORY: Fibular fracture. FINDINGS: AP and lateral views of the left tibia and fibula with 3 additional views of the left ankle are obtained. Correlation is made with CT scan of the left knee performed the same day 12/06/2020. The skeletal structures are osteopenic. A left knee arthroplasty is in near anatomic alignment. No periprosthetic lucency is identified. There is a comminuted fracture of the left fibular head and neck with overlying soft tissue edema. Milder soft tissue edema seen throughout the remainder of the foot and ankle. Question age indeterminant fracture along the inferior aspect of the lateral malleolus. No tibial fracture is identified. The ankle mortise appears intact. There is no ankle joint effusion. Large dorsal and plantar calcaneal enthesophytes are noted. Soft tissue calcification is seen at the insertion of the Achilles tendon. There is advanced atherosclerotic calcification of the regional arteries. Degenerative spurring is seen along the dorsal aspect of the tarsal bones. IMPRESSION: 1. There is a comminuted fracture of the left fibular head and neck. 2. Question age indeterminant fracture at the base of the lateral malleolus. 3. No tibial fracture is seen. 4. The ankle mortise is intact. 5. Soft tissue edema is seen throughout the left lower extremity. Electronically signed by: Derrek Magallon M.D. 12/06/2020 6:14 PM Dictated: 12/06/201809Transcribed: 12/06/201809 LEFT TIBIA AND FIBULA 2 VIEWS; LEFT ANKLE 3 VIEWS CLINICAL HISTORY: Fibular fracture. FINDINGS: AP and lateral views of the left tibia and fibula with 3 additional views of the left ankle are obtained. Correlation is made with CT scan of the left knee performed the same day 12/06/2020. The skeletal structures are osteopenic. A left knee arthroplasty is in near anatomic alignment. No periprosthetic lucency is identified. There is a comminuted fracture of the left fibular head and neck with overlying soft tissue edema. Milder soft tissue edema seen throughout the remainder of the foot and ankle. Question age indeterminant fracture along the inferior aspect of the lateral malleolus. No tibial fracture is identified. The ankle mortise appears intact. There is no ankle joint effusion. Large dorsal and plantar calcaneal enthesophytes are noted. Soft tissue calcification is seen at the insertion of the Achilles tendon. There is advanced atherosclerotic calcification of the regional arteries. Degenerative spurring is seen along the dorsal aspect of the tarsal bones. IMPRESSION: 1. There is a comminuted fracture of the left fibular head and neck. 2. Question age indeterminant fracture at the base of the lateral malleolus. 3. No tibial fracture is seen. 4. The ankle mortise is intact. 5. Soft tissue edema is seen throughout the left lower extremity. Electronically signed by: Derrek Magallon M.D. 12/06/2020 6:14 PM Dictated: 12/06/200Transcribed: 12/06/201809 RIGHT TIBIA AND FIBULA 2 VIEWS; RIGHT ANKLE 3 VIEWS CLINICAL HISTORY: Fall. Right leg injury. FINDINGS: AP and lateral views of the right tibia and fibula with 3 additional views of the right ankle are obtained. Correlation is made with radiographs of the right foot and knee dated 12/05/2020. The skeletal structures are osteopenic. There is no radiographic evidence of right tibial or fibular fracture. Degenerat cheko change is noted in the partially imaged knee joint. The ankle mortise is intact. Soft tissue edema is present throughout the right lower extremity and around the ankle. There are large dorsal and plantar calcaneal enthesophytes. There is an age indeterminant avulsion fracture along the dorsal aspect of the talus. Degenerative spurring is seen along the dorsal aspect of the tarsal bones. There are large dorsal and plantar calcaneal enthesophytes. Calcification is seen along the course of the distal Achilles tendon. Advanced atherosclerotic calcification is noted in the regional arteries. IMPRESSION: 1. Soft tissue swelling with no radiographic evidence of right tibial or fibular fracture. 2. No fracture is seen at the ankle joint. 3. There is an age indeterminant avulsion fracture along the dorsal aspect of the talus which appears acute to subacute. Correlate for point tenderness. 4. Large heel spurs. 5. Additional findings as above. Electronically signed by: Derrek Magallon M.D. 12/06/2020 2:33 PM Dictated: 12/06/20 1425Transcribed: 12/06/20 1425 RIGHT TIBIA AND FIBULA 2 VIEWS; RIGHT ANKLE 3 VIEWS CLINICAL HISTORY: Fall. Right leg injury. FINDINGS: AP and lateral views of the right tibia and fibula with 3 additional views of the right ankle are obtained. Correlation is made with radiographs of the right foot and knee dated 12/05/2020. The skeletal structures are osteopenic. There is no radiographic evidence of right tibial or fibular fracture. Degenerative change is noted in the partially imaged knee joint. The ankle mortise is intact. Soft tissue edema is present throughout the right lower extremity and around the ankle. There are large dorsal and plantar calcaneal enthesophytes. There is an age indeterminant avulsion fracture along the dorsal aspect of the talus. Degenerative spurring is seen along the dorsal aspect of the tarsal bones. There are large dorsal and plantar calcaneal enthesophytes. Calcification is seen along the course of the distal Achilles tendon. Advanced atherosclerotic calcification is noted in the regional arteries. IMPRESSION: 1. Soft tissue swelling with no radiographic evidence of right tibial or fibular fracture. 2. No fracture is seen at the ankle joint. 3. There is an age indeterminant avulsion fracture along the dorsal aspect of the talus which appears acute to subacute. Correlate for point tenderness. 4. Large heel spurs. 5. Additional findings as above. Electronically signed by: Derrek Magallon M.D. 12/06/2020 2:33 PM Dictated: 12/06/20 1425Transcribed: 12/06/[address] SCAN OF THE RIGHT KNEE WITHOUT IV CONTRAST CLINICAL HISTORY: Fall with right-sided knee pain. COMPARISON STUDY: Radiographs of the right knee dated 12/05/2020. TECHNIQUE: CT scan of the right knee is performed from the distal femur to the proximal tibia and fibula. Images are reviewed in the axial, sagittal, and coronal planes. IV contrast not administered for this examination. A dose lowering technique was utilized adhering to the principles of ALARA. FINDINGS: The skeletal structures are osteopenic. Question a fractured osteophyte along the posterior aspect of the medial femoral condyle on axial image #163. There is trace overlying hemorrhage. No additional findings are concerning for acute fracture. There is tricompartmental degenerative joint space narrowing. Chondrocalcinosis is noted in the medial and lateral compartments. Degenerative sclerosis and subchondral cyst formation is noted along the weightbearing surface the medial compartment. There are large marginal osteophytes and patellar enthesophytes. There is a small joint effusion. Generalized atrophy is noted in the regional musculature. Advanced atherosclerotic calcification is seen in the regional arteries. The overlying soft tissues are normal as visualized. No hematoma is seen. IMPRESSION: 1. Question a fractured osteophyte along the posterior aspect of the medial femoral condyle with overlying hemorrhage. Correlate for point tenderness. 2. No additional fracture is identified. 3. Osteopenia, degenerative change, and chondrocalcinosis as above. ACT 112: Negative or not required by law. Electronically signed by: Derrek Magallon M.D. 12/06/2020 8:51 AM Dictated: 12/06/20 0842Transcribed: 12/06/[address] SCAN OF THE LEFT KNEE WITHOUT IV CONTRAST CLINICAL HISTORY: Fall with left knee pain. COMPARISON STUDY: No priors. TECHNIQUE: CT scan of the left knee is performed from the distal femur to the proximal tibia and fibula. Images are reviewed in the axial, sagittal, and coronal planes. IV contrast was not administered for this examination. A dose lowering technique was utilized adhering to the principles of ALARA. Note that interpretation is suboptimal without plain film correlate. The examination is compromised by severe streak artifact from a left knee arthroplasty. CT DOSE: 504.62 mGy.cm FINDINGS: The skeletal structures are osteopenic. A left knee arthroplasty is in near-anatomic alignment. No periprosthetic lucency is seen. There has been undersurface remodeling of the patella. There is an acute and comminuted fracture of the fibular head and neck with overlying hemorrhage. The distal femur and proximal tibia appear intact. There is a small joint effusion. Generalized atrophy is noted in the regional musculature. There is advanced atherosclerotic calcification of the regional arteries. No large hematoma is identified. IMPRESSION: 1. There is a comminuted fracture of the left fibular head and neck with surrounding hemorrhage. 2. No additional fracture is clearly identified. 3. A left knee arthroplasty is in place. ACT 112: Negative or not required by law. Electronically signed by: Derrek Magallon M.D. 12/06/2020 9:00 AM Dictated: 12/06/20853Transcribed: 12/06/20853 XR chest 1V portable CLINICAL HISTORY: weakness COMPARISON STUDY: October 10, 2019 FINDINGS: No pneumothorax. No pleural effusion. Few linear density at the left costophrenic angle could represent small atelectasis or infiltrate. Cardiomediastinal silhouette is mildly enlarged. Aorta is calcified. Enlargement of the right shweta and mild pulmonary vascular congestion is seen.. Osseous structures: Degenerative changes of the spine. IMPRESSION: 1. Cardiomegaly. Pulmonary vascular congestion. 2. Small atelectasis or infiltrate at the left base. ACT 112: Negative or not required by law. The above report was generated using voice recognition software. It may contain grammatical, syntax or spelling errors. Electronically signed by: Nini Sommers DO 12/06/2020 8:31 AM Dictated: 12/06/2029Transcribed: 12/06/20828 CT SCAN OF THE BRAIN WITHOUT IV CONTRAST CLINICAL HISTORY: Fall. COMPARISON STUDY: CT of the brain dated 10/10/2019. TECHNIQUE: Unenhanced axial CT scan of the brain is performed from the vertex to the skull base. A dose lowering technique was utilized adhering to the principles of ALARA. CT DOSE: 970.88 mGy.cm FINDINGS: Brain parenchyma: There are age-related involutional changes noting moderate to advanced subcortical and periventricular microangiopathic change. There is no hemorrhage, mass effect, or evidence of acute territorial ischemia by CT criteria. Small chronic lacunar infarcts are noted in the basal ganglia, both cerebellar hemispheres, and the right thalamus Almazan-white matter differentiation is preserved. No extra-axial fluid collection is seen. Ventricles, sulci, cisterns: Prominent secondary to involutional change. Intracranial vasculature: There is atherosclerotic calcification of the cavernous carotid arteries. Calvarium: The skeletal structures are osteopenic. There is no depressed calvarial fracture. Sinuses and mastoids: The paranasal sinuses are clear. The mastoid air cells are well pneumatized. Orbits: The bony orbits are grossly intact. IMPRESSION: There is no hemorrhage, mass effect, or evidence of acute territorial ischemia by CT criteria. ACT 112: Negative or not required by law. Electronically signed by: Derrek Magallon M.D. 12/06/2020 6:48 AM Dictated: 12/06/20645Transcribed: 12/06/20645 CT SCAN OF THE CERVICAL SPINE CLINICAL HISTORY: Trauma. Fall. COMPARISON STUDY: CT of the cervical spine dated 07/05/2019. TECHNIQUE: CT scan of the cervical spine is performed from the skull base to the upper thoracic spine. Images are reviewed in the axial, sagittal, and coronal planes. IV contrast was not administered for this examination. A dose lowering technique was utilized adhering to the principles of ALARA. FINDINGS: Skeletal structures: The skeletal structures are osteopenic. There is no evidence of fracture or subluxation involving the cervical spine. Vertebral body height and alignment are maintained. There is straightening of the cervical l ordosis. Anterior osteophytes are seen throughout. The odontoid process and lateral masses are intact. The atlantoaxial articulation is preserved noting advanced productive degenerative change. The spinous processes appear intact. There is moderate to advanced multilevel cervical spondylosis. Uncovertebral and facet arthropathy contribute to neural foraminal stenosis at most levels. Intervertebral discs: Moderate to severe disc space narrowing is seen at C4-C5 and C5-C6. Mild disc space narrowing is seen at the remaining cervical levels. Central canal: Large posterior disc osteophyte complexes are seen at all cervical levels. These contribute to multilevel acquired compromise of the central canal. Soft tissues: The prevertebral and paraspinous soft tissues are within normal limits. Low-attenuation thyroid nodules and calcifications measure up to 1 cm. These are unchanged. There is advanced atherosclerotic calcification of the carotid bulbs. Calvarium: The visualized calvarium at the skull base appears intact. Brain parenchyma: Partially visualized brain parenchyma at the skull base is within normal limits. Sinuses and mastoids: The visualized paranasal sinuses are clear. The mastoid air cells are well pneumatized. Cerumen fills the external auditory canals. Lung apices: Clear as visualized. IMPRESSION: 1. There is no evidence of fracture or subluxation involving the cervical spine. 2. Osteopenia and spondylotic change as above. ACT 112: Negative or not required by law. Electronically signed by: Derrek Magallon M.D. 12/06/2020 8:22 AM Dictated: 12/06/20816Transcribed: 12/06/20816 XR shoulder RT min 2V routine CLINICAL HISTORY: fall COMPARISON: None. DISCUSSION: No definite acute fracture or dislocation seen. Evaluation is limited due to s evere diffuse osteopenia. Degenerative changes of the spine are partially seen. IMPRESSION: No definite acute fracture or dislocation. ACT 112: Negative or not required by law. The above report was generated using voice recognition software. It may contain grammatical, syntax or spelling errors. Electronically signed by: Nini Sommers DO 12/06/2020 7:48 AM Dictated: 12/06/20 0747Transcribed: 12/06/20 07 XR knee RT 1 or 2V routine CLINICAL HISTORY: fall COMPARISON: None. DISCUSSION: No definite acute fracture dislocation seen. Severe degenerative changes of the knee is seen with narrowing of medial compartment of the knee joint was subchondral sclerosis and osteophytes. Evaluation is limited due to severe diffuse osteopenia and prominent soft tissue edema. Heavy vascular calcifications are seen. IMPRESSION: No definite acute fracture or dislocation. Limited exam. ACT 112: Negative or not required by law. The above report was generated using voice recognition software. It may contain grammatical, syntax or spelling errors. Electronically signed by: Nini Sommers DO 12/06/2020 7:52 AM Dictated: 12/06/20750Transcribed: 12/06/20750 XR hip RT 2V w pelvis CLINICAL HISTORY: fall COMPARISON: None. DISCUSSION: No definite acute fracture dislocation seen however evaluation is significantly limited due to severe diffuse osteopenia. Degenerative changes of the bilateral hip joints and at enthesopathy is seen. Heavy vascular calcifications and extensive amount of stool is seen. Large amount of stool within pelvic region could represent fecal impaction. IMPRESSION: 1. No acute fracture or dislocation, significantly limited exam. 2. Severe atherosclerosis. 3. Fecal impaction. ACT 112: Negative or not required by law. The above report was generated using voice recognition software. It may contain grammatical, syntax or spelling errors. Electronically signed by: Nini Sommers DO 12/06/2020 7:51 AM Dictated: 12/06/2049Transcribed: 12/06/20748 XR foot RT min 3V routine CLINICAL HISTORY: fall COMPARISON: None. DISCUSSION: No definite acute fracture or dislocation seen. Evaluation is limited due to diffuse severe osteopenia. Severe degenerative changes of the tarsometatarsal region and at the first metatarsophalangeal joint are seen. Plantar and posterior calcaneal spurs are seen. Diffuse soft tissue edema and heavy vascular calcifications are seen. IMPRESSION: No acute fracture or dislocation. The rest of findings as above. ACT 112: Negative or not required by law. The above report was generated using voice recognition software. It may contain grammatical, syntax or spelling errors. Electronically signed by: Nini Sommers DO 12/06/2020 7:55 AM Dictated: 12/06/20751Transcribed: 12/06/20751 Hospital Course (1) Falls frequently: (2) Closed left fibular fracture: (3) Contusion of knee, right: CT knee showed Question a fractured osteophyte along the posterior aspect of the medial femoral condyle with overlying hemorrhage. Correlate for point tenderness. Left Tibia and Fibula showed comminuted fracture of the left fibular head and neck. Question age indeterminant fracture at the base of the lateral malleolus. ortho on board recommended conservative management. No surgical intervention at this time as per Ortho Continue weightbearing as tolerated and ROMAT may need assist device (walker) for pain related to fibula. Does not need fracture boot, which would put at increased risk of additional falls. Continue pain control waiting for placement (4) Atrial fibrillation: Rate controlled with Toprol-XL Not on coumadin due to history of intracranial bleeding and history of frequent falls (5) CAD (coronary artery disease): Continue aspirin, statin (6) ESRD (end stage renal disease) on dialysis: On HD MWF Next HD schedule of Monday (12/11/20 Follow up with nephrology Nocturnal Hypoxia On chronic oxygen use at night Continue oxygen supplement at night and HS Hx Posttraumatic Seizure Hx Intracranial Hemorrhage Continue keppra 500mg Will D/C the tramadol due to seizure Continue seizure precaution Total Time Total Time Spent Total Time Spent (In Minutes): 35 minutes Discharge Plan Discharge Items Patient Disposition: Transfer Intermediate Fac Reason For Visit: FALL Discharge Diagnosis: (1) Falls frequently: (2) Closed left fibular fracture: (3) Contusion of knee, right: (4) Atrial fibrillation: (5) CAD (coronary artery disease): (6) ESRD (end stage renal disease) on dialysis: Condition on Discharge: Good Activity: Resume your previous activity Non-emergency contact: Primary Care Provider and Oriental Medicine Practitioner Call non-emergency contact if: you have any medication questions Follow-up/Referrals: Cristiano Cerda MD [Primary Care Provider] - Diet: Dialysis Renal and Heart Healthy Addtl Attending Provider Instructions: Follow up with your primary care provider once discharge from [facility] Continue physical and occupational therapy ( weight bearing activity as tolerate and Range of motion as tolerated) You may need assist device (walker) for pain related to fibula. Does not need fracture boot, which would put at increased risk of additional falls. Fall and seizure precautions Your next dialysis is tomorrow Continue 2.5L NC oxygen supplement at night and during dialysis Check CBC in 1 week to monitor your hemoglobin Pending Studies at Discharge: No Stand-Alone Forms: My [facility] Skilled Items Patient informed of condition?: Yes DNR: No Discharge Level of Care: Skilled Communicable Disease: No Discharge Prognosis: Stable Lines: None Urinary Catheter: No Medications and DC Order Prescriptions: New acetaminophen [Tylenol Extra Strength] 500 mg Tablet 1,000 mg PO Q8H PRN (Reason: pain) Qty: 30 RF: 0 Continued allopurinol 300 mg Tablet 450 mg PO DAILY RF: 0 amlodipine 5 mg Tablet 5 mg PO DAILY RF: 0 clonidine HCl 0.2 mg Tablet 0.2 mg PO BID RF: 0 metoprolol succinate 100 mg Tablet Extended Release 24 Hr 100 mg PO BID RF: 0 levetiracetam 500 mg Tablet 500 mg PO .BID UD RF: 0 levetiracetam 500 mg Tablet 500 mg PO .TID ON DIALYSIS DAY RF: 0 acetaminophen [Tylenol] 325 mg Tablet 650 mg PO Q4H PRN (Reason: pain/fever) RF: 0 lanthanum 1,000 mg Tablet,Chewable 1,000 mg PO TID RF: 0 atorvastatin 80 mg tablet 80 mg PO DAILY RF: 0 trazodone 50 mg tablet 25 mg PO HS RF: 0 aspirin 81 mg Tablet,Delayed Release (Dr/Ec) 81 mg PO DAILY RF: 0 Discharge Orders: Discharge Order (Routine); Ordered 12/10/20 Ordered By: Alcon Schmitt Admission Data Admit Date/Time: 12/06/20 02:47 Attending Provider: Alcon Schmitt Admit Provider: Adam Mcnally Primary Care Provider: Cristiano Cerda Other Providers: Adam Mcnally ; Wayne Sousa ; Nael Lorenz ; [facility] ; Mehreen Love I. Other Interventions: Discharge Summary Assessment (RN) Last Done: 12/10/20 12:21
[2020-12-11] MEDS ORDERED: SODIUM CHLORIDE 0.9% 1000ML 1,000 ML IV PRN (07:00)
[2020-12-11] MEDS ORDERED: EPOETIN ALFA 10,000 UNITS/ML VIAL IV SCH (07:00)
== END 2020-12-10 13:15 | DRG 91 ==
LOC: ED 20:49 → 3N 12-06 02:47 → SUATTDRO 12-06 02:47 → 3N 12-06 04:48

== ENCOUNTER 2022-05-04 10:43 | Inpatient (IN) ==
--- NOTE | 2022-05-04 10:59 | Emergency Department Note ---
Impression & Plan Acute dyspnea, Influenza A, Pulmonary edema, Acute hypotension ED Provider Note HISTORY OF PRESENT ILLNESS: Patient is a 76-year-old female presenting with progressively worsening s hortness of breath. Patient presents from a an assisted living facility. Patient tested positive for influenza 3 days ago. Reportedly has been having progressively worsening shortness of breath and nonproductive cough for the last 2 days. Her breathing got worse today, prompting the facility to call 911. Patient wears 3 to 4 L nasal cannula at baseline. She is a hemodialysis patient and receives dialysis Monday/Monday/Monday. She reports that she received her complete dialysis session yesterday. Denies any chest pain. She reports that she does not need to be here ROS: Constitutional: No fever, chills, or weakness Skin: No rash or diaphoresis HENT: No headaches or congestion Eyes: No vision changes Cardio: No chest pain, palpitations or leg swelling Respiratory: No cough, wheezing +shortness of breath GI: No nausea, vomiting, diarrhea, constipation : No dysuria, polyuria MSK: No joint or back pain Neuro: No loss of sensation, confusion, focal deficits, numbness, tingling Psychiatric: No mood changes PHYSICAL EXAM: Constitutional: Patient appears in no acute distress. HENT: Head: Normocephalic and atraumatic. Eyes: EOMI, PERRL Mouth/Throat: Mucous membranes moist. Neck: Trachea midline. Neck supple. Cardiovascular: RRR, No murmurs, rubs or gallops. Intact distal pulses. Pulmonary/Chest: No respiratory distress. Breath sounds clear and equal bilaterally. Crackles in bilateral bases. On 4L NC. Abdominal: BS +. Abdomen soft, no tenderness, rebound or guarding. Back: No midline spinal tenderness, no paraspinal tenderness, no CVA tenderness. Musculoskeletal: No edema, tenderness or deformity noted. Skin: Warm and dry. No rash, erythema, pallor or cyanosis Psychiatric: Appropriate mood and affect for situation. Neurological: Alert and keenly responsive. CN II-XII grossly intact, moving all extremities equally and fully. MDM: - Vitals signs showed tachycardia. - Patient presents with progressively worsening shortness of breath. On 3-4L NC at baseline. Nonproductive cough. - IV established and patient placed on monitor. - Chronic medical conditions affecting medical care: seizures; ESRD (on HD M/W/F ); CVA; COPD; CAD; GERD; DM-2 - External medical record reviewed and showed patient presented to ER on 04/18/2022 with cough but refused all workup except a CXR. - EKG reviewed by myself showed atrial fibrillation. Rate of 101. No obvious ischemic changes. - Laboratory workup showed leukocytosis (WBC 11.9); hypokalemia (K 3.4); ESRD (Cr 5.39); normal magnesium; normal PT/INR; elevated troponin (227.6 - likely type II NSTEMI in setting of pulmonary edema and ESRD); elevated BNP (1536) - CXR interpreted by myself shows cardiomegaly and pulmonary congestion concerning for pulmonary edema. - Patient had episodes of hypotension in ER - MAPs 60-65. Given 500 cc NS, given setting of heart failure and pulmonary edema. However, her BPs remained low and she was given IV albumin for further volume. Given hypotension, lasix not given for her pulmonary edema at this time. - Hospitalist consulted for admission. - [facility] I provided 36 minutes of critical care time to this patient's care outside of billable procedures. ASSESSMENT AND PLAN: Diagnosis: dyspnea; pulmonary edema; influenza A; hypotension; NSTEMI; CHF exacerbation Plan: admit Past Med/Surg History Medical History (Updated 05/04/22 @ 13:52 by Earlene Starr MD) Acromioclavicular joint separation Atrial fibrillation CAD (coronary artery disease) "LEONA to LAD cath 2014 - moderate non obstructive disease" CKD (chronic kidney disease), stage IV Clavicle fracture COPD, severe Depression DM type 2 (diabetes mellitus, type 2) Dyslipidemia Encephalopathy Fall GERD (gastroesophageal reflux disease) HTN (hypertension) IBS (irritable bowel syndrome) Nontraumatic intracerebral hemorrhage Surgical History H/O sinus surgery History of total left knee replacement No pertinent past surgical history S/P cholecystectomy Social History Smoking Status: Unknown if ever smoked Hx Alcohol Use: No Hx Substance Use: No Preferred Language: Maori Communication Ability: Effective Ship[employer] Required: No Beliefs That Will Affect Care: None marital status: / Current Living Situation: Alone Current Living Situation Comment: lives alone Feels Safe at Home: Yes Assistive Devices: Walker Allergies Allergies Allergy/AdvReac Type Severity Reaction Status Date / Time verapamil Allergy Mild UNKNOWN Verified 02/25/22 17:13 lisinopril AdvReac Mild COUGH Verified 02/25/22 17:13 Home Meds Home Medications Medication Instructions Recorded Confirmed lidocaine-prilocaine 2.5 %-2.5 % 1 applic topical 3XWK 02/25/22 02/25/22 topical cream Previous Rx's Medication Instructions Recorded acetaminophen 325 mg tablet 650 mg PO Q6H PRN mild to moderate 03/01/22 pain #60 tabs allopurinol 300 mg tablet 450 mg PO DAILY #45 tabs 03/01/22 aspirin 81 mg tablet,delayed 162 mg PO DAILY #30 tabs 03/01/22 release atorvastatin 80 mg tablet 80 mg PO DAILY #30 tabs 03/01/22 calcitriol 0.5 mcg capsule 0.5 mcg PO 3XWK #12 caps 03/01/22 cefdinir 300 mg capsule 300 mg PO Q24H #1 cap 03/01/22 docusate sodium 100 mg capsule 200 mg PO DAILY #60 caps 03/01/22 (Colace) glucosamine [id number] 1 tab PO DAILY #30 tabs 03/01/22 rhiannon 1,500 mg-400 unit-100 mg tablet (Glucosamine Daily Complex) lanthanum 1,000 mg chewable tablet 1,000 mg PO TIDM #90 tabs 03/01/22 levetiracetam 500 mg tablet 500 mg PO .BID UD #32 tabs 03/01/22 levetiracetam 500 mg tablet 500 mg PO .TID ON DIALYSIS DAY #15 03/01/22 tabs metoprolol succinate 100 mg 100 mg PO AMPM #60 tabs 03/01/22 tablet,extended release 24 hr tramadol 50 mg tablet 50 mg PO Q8H PRN severe pain #14 03/01/22 tabs trazodone 50 mg tablet 25 mg PO HS #30 tabs 03/01/22 Results & Data (ED) Vital Signs Vital Signs - 24 hr 05/04/22 10:55 05/04/22 10:55 05/04/22 10:55 Temperature 36.9 C Temperature Source Oral Pulse Rate 108 H 108 H Pulse Rate from SpO2 Sensor Respiratory Rate 18 18 Blood Pressure 99/77 L Blood Pressure Mean 84 Pulse Oximetry 99 99 Oxygen Delivery Method Nasal Cannula Nasal Cannula Oxygen Flow Rate 4 4 Sepsis Recent Fever Within 48 Hours No Sepsis New/Unexplained Change in Mental Status No Sepsis Action Taken by Nursing Physician Notified 05/04/22 11:18 05/04/22 11:25 05/04/22 11:30 Temperature Temperature Source Pulse Rate 106 H 107 H 105 H Pulse Rate from SpO2 Sensor 104 H 112 H 109 H Respiratory Rate 23 27 H 17 Blood Pressure 88/53 L 81/43 L 82/41 L Blood Pressure Mean 64 55 54 Pulse Oximetry 98 95 96 Oxygen Delivery Method Nasal Cannula Nasal Cannula Nasal Cannula Oxygen Flow Rate 4 4 4 Sepsis Recent Fever Within 48 Hours Sepsis New/Unexplained Change in Mental Status Sepsis Action Taken by Nursing 05/04/22 11:54 Temperature Temperature Source Pulse Rate 106 H Pulse Rate from SpO2 Sensor Respiratory Rate 18 Blood Pressure 103/54 L Blood Pressure Mean 70 Pulse Oximetry 99 Oxygen Delivery Method Nasal Cannula Oxygen Flow Rate 4 Sepsis Recent Fever Within 48 Hours Sepsis New/Unexplained Change in Mental Status Sepsis Action Taken by Nursing Laboratory Data 05/04/22 11:05 05/04/22 11:05 Lab Results 05/04/22 05/04/22 05/04/22 Range/Units 11:05 11:05 11:05 WBC 11.96 H (4.8-10.8) K/ul RBC 3.66 L (3.93-5.22) M/uL Hgb 11.8 L (12.0-16.0) g/dl Hct 38.9 (34.1-44.9) % MCV 106.3 H (80.0-100.0) fL MCH 32.2 (25.0-34.0) pg MCHC 30.3 L (32.0-36.0) g/dL RDW Std Deviation 64.7 H (36.4-46.3) fL RDW Coeff of Edin 16.2 H (11.5-14.5) % Plt Count 153 (130-400) K/uL MPV 12.9 H (9.4-12.3) fL Immature Gran % (Auto) 1.4 % Neut % (Auto) 79.6 % Lymph % (Auto) 11.6 % [place] % (Auto) 6.6 % Eos % (Auto) 0.4 % Baso % (Auto) 0.4 % Neut # (Auto) 9.51 H (1.4-6.5) K/uL Lymph # (Auto) 1.39 (1.2-3.4) K/uL [place] # (Auto) 0.79 (0.24-0.82) K/uL Eos # (Auto) 0.05 (0-0.50) K/uL Baso # (Auto) 0.05 (0-0.2) K/uL Immature Gran # (Auto) 0.17 H (0.00-0.02) K/uL PT 11.9 (9.0-12.0) Seconds INR 1.1 (0.9-1.1) APTT 23.1 (21.0-31.0) Seconds PTT Ratio 0.8 Sodium 140 (136-145) mmol/L Potassium 3.4 L (3.5-5.1) mmol/L Chloride 99 (98-107) mmol/L Carbon Dioxide 34 H (21-32) mmol/L Anion Gap 7 (3-11) BUN 28 H (6-23) mg/dl Creatinine 5.39 H* (0.6-1.2) mg/dl Est Cr Clr Drug Dosing 9.6 ml/min Est GFR ( Amer) 8.2 ml/min Est GFR (Non-Af Amer) 7.0 ml/min BUN/Creatinine Ratio 5.2 L (10-20) Glucose 152 H (70-99(Fasting)) mg/dl Calcium 9.5 (8.5-10.1) mg/dl Magnesium 2.2 (1.7-2.4) mg/dl Total Bilirubin 0.6 (0.2-1.0) mg/dl AST 17 (13-39) U/L ALT 22 (7-52) U/L Alkaline Phosphatase 62 (34-104) U/L Troponin I High Sens 227.6 H* (0-14) pg/ml B-Natriuretic Peptide (0-100) pg/ml Total Protein 5.6 L (6.0-8.3) gm/dl Albumin 2.8 L (3.4-5.0) gm/dl Globulin 2.8 (2.5-4.0) gm/dl Albumin/Globulin Ratio 1.0 (0.9-2) Procalcitonin (0-0.5) ng/ml 05/04/22 05/04/22 Range/Units 11:05 11:05 WBC (4.8-10.8) K/ul RBC (3.93-5.22) M/uL Hgb (12.0-16.0) g/dl Hct (34.1-44.9) % MCV (80.0-100.0) fL MCH (25.0-34.0) pg MCHC (32.0-36.0) g/dL RDW Std Deviation (36.4-46.3) fL RDW Coeff of Edin (11.5-14.5) % Plt Count (130-400) K/uL MPV (9.4-12.3) fL Immature Gran % (Auto) % Neut % (Auto) % Lymph % (Auto) % [place] % (Auto) % Eos % (Auto) % Baso % (Auto) % Neut # (Auto) (1.4-6.5) K/uL Lymph # (Auto) (1.2-3.4) K/uL [place] # (Auto) (0.24-0.82) K/uL Eos # (Auto) (0-0.50) K/uL Baso # (Auto) (0-0.2) K/uL Immature Gran # (Auto) (0.00-0.02) K/uL PT (9.0-12.0) Seconds INR (0.9-1.1) APTT (21.0-31.0) Seconds PTT Ratio Sodium (136-145) mmol/L Potassium (3.5-5.1) mmol/L Chloride (98-107) mmol/L Carbon Dioxide (21-32) mmol/L Anion Gap (3-11) BUN (6-23) mg/dl Creatinine (0.6-1.2) mg/dl Est Cr Clr Drug Dosing ml/min Est GFR ( Amer) ml/min Est GFR (Non-Af Amer) ml/min BUN/Creatinine Ratio (10-20) Glucose (70-99(Fasting)) mg/dl Calcium (8.5-10.1) mg/dl Magnesium (1.7-2.4) mg/dl Total Bilirubin (0.2-1.0) mg/dl AST (13-39) U/L ALT (7-52) U/L Alkaline Phosphatase (34-104) U/L Troponin I High Sens (0-14) pg/ml B-Natriuretic Peptide 1563 H (0-100) pg/ml Total Protein (6.0-8.3) gm/dl Albumin (3.4-5.0) gm/dl Globulin (2.5-4.0) gm/dl Albumin/Globulin Ratio (0.9-2) Procalcitonin 0.46 (0-0.5) ng/ml Administered Medications Discontinued Medications Sodium Chloride (Nss) 500 mls @ 999 mls/hr IV .Q31M ONE Stop: 05/04/22 13:07 Last Admin: 05/04/22 12:45 Dose: 999 mls/hr Documented By: QGV Imaging Data Radiologist's Impression: Chest X-Ray 05/04/22 10:55 TWO VIEW CHEST CLINICAL HISTORY: Cough and dyspnea.. FINDINGS: AP and lateral chest radiographs are compared to study dated 04/18/2022 and correlated with chest CT dated 10/20/2021. The patient's head obscures the apices on the AP view. The heart is enlarged noting atherosclerotic calcification of the thoracic aorta. There is pulmonary vascular congestion. Bilateral airspace opacity likely representing pulmonary edema. Small pleural effusions are noted. There is no pneumothorax. The skeletal structures are osteopenic. A left humeral head fracture is again noted. IMPRESSION: 1. Cardiomegaly with evidence of congestive failure. 2. Bilateral airspace opacities likely represent pulmonary edema. Correlate clinically for evidence of a superimposed infectious/inflammatory pneumonitis. Radiographic follow-up to resolution is recommended. 3. Small pleural effusions are noted. ACT 112: Negative or not required by law. Electronically signed by: Derrek Magallon M.D. 05/04/2022 11:58 AM Discharge Plan Visit Data Chief Complaint: Shortness of Breath/Dyspnea ED Provider: Earlene Starr Discharge Problem: Acute dyspnea, Influenza A, Pulmonary edema, Acute hypotension Forms Stand Alone Forms: My [facility] [employer] Prescriptions Prescriptions: No Action lidocaine-prilocaine 2.5-2.5 % cream 1 applic topical 3XWK Rx Instructions: apply a small amount to access AVF 30-60 min prior to dialysis, cover with occlusive dressing (saran wrap) cefdinir 300 mg Capsule 300 mg PO Q24H Qty: 1 0RF Rx Instructions: Take on 03/02/22 acetaminophen 325 mg Tablet 650 mg PO Q6H PRN (Reason: mild to moderate pain) Qty: 60 0RF tramadol 50 mg Tablet 50 mg PO Q8H PRN (Reason: severe pain) Qty: 14 0RF atorvastatin 80 mg tablet 80 mg PO DAILY Qty: 30 0RF trazodone 50 mg tablet 25 mg PO HS Qty: 30 0RF levetiracetam 500 mg Tablet 500 mg PO .TID ON DIALYSIS DAY Qty: 15 0RF Rx Instructions: on dialysis days takes 1 tablet at 0600 levetiracetam 500 mg Tablet 500 mg PO .BID UD Qty: 32 0RF Rx Instructions: Take am & noon on non dialysis days metoprolol succinate 100 mg Tablet Extended Release 24 Hr 100 mg PO AMPM Qty: 60 0RF aspirin 81 mg Tablet,Delayed Release (Dr/Ec) 162 mg PO DAILY Qty: 30 0RF calcitriol 0.5 mcg Capsule 0.5 mcg PO 3XWK Qty: 12 0RF Rx Instructions: administer in dialysis docusate sodium [Colace] 100 mg Capsule 200 mg PO DAILY Qty: 60 0RF allopurinol 300 mg Tablet 450 mg PO DAILY Qty: 45 0RF lanthanum 1,000 mg Tablet,Chewable 1,000 mg PO TIDM Qty: 90 0RF Rx Instructions: take with 3 times a day with meals and 1 with snack 2x a day [id number] serr [Glucosamine Daily Complex] 1,500-400-100 mg-unit-mg Tablet 1 tab PO DAILY Qty: 30 0RF Rx Instructions: give after food/meal Referrals Referrals: Cristiano Cerda MD [Primary Care Provider] -
[2022-05-04 11:27] LABS: Basophils # (auto) 0.05 K/uL (0-0.2); Basophils % (auto) 0.4 %; Eosinophils # (auto) 0.05 K/uL (0-0.50); Eosinophils % (auto) 0.4 %; Hematocrit (blood only) 38.9 % (34.1-44.9); Hemoglobin 11.8 g/dl (12.0-16.0); Immature Granulocytes # (auto) 0.17 K/uL (0.00-0.02); Immature Granulocytes % (auto) 1.4 %; Lymphocytes # (auto) 1.39 K/uL (1.2-3.4); Lymphocytes % (auto) 11.6 %; Mean Corpuscular Hemoglobin 32.2 pg (25.0-34.0); Mean Corpuscular Hgb Conc 30.3 g/dL (32.0-36.0); Mean Corpuscular Volume 106.3 fL (80.0-100.0); Mean Platelet Volume 12.9 fL (9.4-12.3); Monocytes # (auto) 0.79 K/uL (0.24-0.82); Monocytes % (auto) 6.6 %; Neutrophils # (auto) 9.51 K/uL (1.4-6.5); Neutrophils % (auto) 79.6 %; Platelet Count 153 K/uL (130-400); RDW Coefficient of Variation 16.2 % (11.5-14.5); RDW Standard Deviation 64.7 fL (36.4-46.3); Red Blood Count 3.66 M/uL (3.93-5.22); White Blood Count 11.96 K/ul (4.8-10.8)
[2022-05-04 11:39] LABS: INR 1.1 (0.9-1.1); Partial Thromboplastin Ratio 0.8; Partial Thromboplastin Time 23.1 Seconds (21.0-31.0); Prothrombin Time 11.9 Seconds (9.0-12.0)
--- NOTE | 2022-05-04 12:01 | XRay Report ---
TWO VIEW CHEST CLINICAL HISTORY: Cough and dyspnea.. FINDINGS: AP and lateral chest radiographs are compared to study dated 04/18/2022 and correlated with chest CT dated 10/20/2021. The patient's head obscures the apices on the AP view. The heart is enlarg ed noting atherosclerotic calcification of the thoracic aorta. There is pulmonary vascular congestion . Bilateral airspace opacity likely representing pulmonary edema. Small pleural effusions are noted. There is no pneumothorax. The skeletal structures are osteopenic. A left humeral head fracture is aga in noted. IMPRESSION: 1. Cardiomegaly with evidence of congestive failure. 2. Bilateral airspace opacities likely represent pulmonary edema. Correlate clinically for evidence o f a superimposed infectious/inflammatory pneumonitis. Radiographic follow-up to resolution is recomme nded. 3. Small pleural effusions are noted. ACT 112: Negative or not required by law. Electronically signed by: Derrek Mgaallon M.D. 05/04/2022 11:58 AM
[2022-05-04] MEDS ORDERED: SODIUM CHLORIDE 0.9% 500 ML IV ONE (12:37)
[2022-05-04 12:46] LABS: Albumin Level 2.8 gm/dl (3.4-5.0); BUN Creatinine Ratio 5.2 (10-20); Bilirubin,Total 0.6 mg/dl (0.2-1.0); Calcium 9.5 mg/dl (8.5-10.1); Creatinine Clr Calc Pharmacy 9.6 ml/min; Est GFR (African American) 8.2 ml/min; Globulin 2.8 gm/dl (2.5-4.0); Magnesium 2.2 mg/dl (1.7-2.4); Potassium 3.4 mmol/L (3.5-5.1); Total Protein 5.6 gm/dl (6.0-8.3); Troponin I High Sensitivity 227.6 pg/ml (0-14)
[2022-05-04] MEDS ORDERED: ALBUMIN 25% 100 mL 25 GM/100 ML VIAL IV ONE (13:33)
[2022-05-04] MEDS ORDERED: ACETAMINOPHEN 325 MG TAB PO PRN (13:58)
[2022-05-04] MEDS ORDERED: MAGNESIUM HYDROXIDE SUSP 30 ML UDC PO PRN (13:58)
[2022-05-04] MEDS ORDERED: POLYETHYLENE (MIRALAX) 17 GM PACK PO PRN (13:58)
[2022-05-04] MEDS ORDERED: ALUMINUM/MAGNESIUM SUSP 30 ML UDC PO PRN (13:58)
--- NOTE | 2022-05-04 13:58 | History & Physical Report ---
Date of Service May 04, 2022 Assessment & Plan (1) Cardiorenal syndrome with renal failure: (2) Influenza A: (3) Pulmonary edema: (4) Seizure disorder: (5) Atrial fibrillation with rapid ventricular response: (6) CAD (coronary artery disease): (7) Dyslipidemia: (8) DM type 2 (diabetes mellitus, type 2): (9) GERD (gastroesophageal reflux disease): Plan Cardiorenal syndrome with renal failure: Pulmonary edema: CXR: Cardiomegaly with evidence of congestive failure; pulmonary edema. Correlate clinically for evidence of a superimposed infectious/inflammatory pneumonitis; Small pleural effusions. Patient hypotensive in ED; 70/50 (55); albumin IV administered x1; SBP now 90 0.9 NSB 500 mL bolus x1 in ED Makes trace amt of urine. May consider Bumex; await Nephro consult. Per nursing facility patient makes small amounts of urine Last dialysis with toxin removal; no fluid removal was 05/03/22 Cardiology and nephrology consult pending; discussed with Dr. Lanza. Fluid restriction 1500 mL when not NPO. Procalcitonin negative Palliative consult placed as patient with multiple comorbid conditions and general goals of care conversation would be helpful. Influenza A: Tested +04/28; received 2 doses of Paxlovid 04/29 and 05/02 on non-dialysis days Will order renal dose while here and administer on HD days CAD: Atrial fibrillation with RVR: HR 106 in ED Not on any anticoagulation Metoprolol note different dosing on HD days; hold as hypotensive History of seizure disorder: Takes Keppra; will switch to IV as pt is NPO Dyslipidemia: Takes Atorvastatin; hold for now due to somnolence Gout: Takes Allopurinol; no active signs of flare; hold for now due to somnolence Depression and Anxiety: Takes Mertazapime; hold for now Takes Trazadone (2 week trial to complete 05/09 per OP records); hold for now due to somnolence Disposition: PCP: Dr. Cerda CODE STATUS: DNR/DNI VTE prophylaxis: Teds and SCDs for now I personally was able to review all current laboratory work and diagnostic images obtained in the ED. Additionally, I was able to review the patients past medication reconciliation and history with direct visualization in the patients chart. This patient was seen and collaborated with Dr. Christina. Please see his addendum for further details. History of Present Illness Chief Complaint: shortness of breath Primary Care Provider: Cristiano Cerda MD Ms. Sharron Sullivan is a 76-year-old female that presented to the [facility] from [facility] with worsening shortness of breath and worsening mental status . The patient has tested positive for flu on 04/28 with underlying pneumonia and has received 2 doses of Paxlovid. CXR in ED results indicated cardiomyopathy with CHF and pulmonary edema. Consider superimposed infection with pneumonitis and small pleural effusions. Slight leukocytosis WBC 11.96 . Patient is a dialysis patient M/W/F and she did receive dialysis yesterday with toxin removal only without fluid removal. Additional past medical history includes obesity, chronic atrial fibrillation, ESRD, CAD, COPD, HTN, HLD, depression, history of seizures, DM2, and JOSUÉ. When I examined the patient she is unable to provide a reliable ROS due to her somnolence and encephalopathy. BP 72/50, MAP 55. She has Albumin infusing. I suspect she has an A/C CHF exacerbation with ESRD and a superimposed infection on top of that. Troponin 227.6 will trend x BNP 1563. Per discussion with Nephrology, she has not shown significant improvement since she was admitted in March with an arm fracture. I was able to talk with the pt daughter Christine at [phone] and confirmed she is DNR/DNI; however ok for ICU for pressors and additional aggressive t if necessary. Patient will be admitted for further evaluation and management. Please see A/P for further detail. Allergies Allergy/AdvReac Type Severity Reaction Status Date / Time verapamil Allergy Mild UNKNOWN Verified 02/25/22 17:13 lisinopril AdvReac Mild COUGH Verified 02/25/22 17:13 Home Medications Medication Instructions Recorded Confirmed Type lidocaine-prilocaine 2.5 %-2.5 % 1 applic topical 3XWK 02/25/22 05/04/22 History topical cream allopurinol 300 mg tablet 450 mg PO DAILY #45 tabs 03/01/22 05/04/22 Rx aspirin 81 mg tablet,delayed 162 mg PO DAILY #30 tabs 03/01/22 05/04/22 Rx release atorvastatin 80 mg tablet 80 mg PO DAILY #30 tabs 03/01/22 05/04/22 Rx calcitriol 0.5 mcg capsule 0.5 mcg PO 3XWK #12 caps 03/01/22 05/04/22 Rx docusate sodium 100 mg capsule 200 mg PO DAILY #60 caps 03/01/22 05/04/22 Rx (Colace) glucosamine TCv-[id number]-[id number] 1 tab PO DAILY #30 tabs 03/01/22 05/04/22 Rx rhiannon 1,500 mg-400 unit-100 mg tablet (Glucosamine Daily Complex) lanthanum 1,000 mg chewable tablet 1,000 mg PO TIDM #90 tabs 03/01/22 05/04/22 Rx levetiracetam 500 mg tablet 500 mg PO .BID UD #32 tabs 03/01/22 05/04/22 Rx levetiracetam 500 mg tablet 500 mg PO .TID ON DIALYSIS DAY #15 03/01/22 05/04/22 Rx tabs trazodone 50 mg tablet 25 mg PO HS #30 tabs 03/01/22 05/04/22 Rx metoprolol succinate 100 mg 50 mg PO DAILY 05/04/22 05/04/22 History tablet,extended release 24 hr metoprolol succinate 50 mg 50 mg PO BID 05/04/22 05/04/22 History tablet,extended release 24 hr mirtazapine 15 mg tablet 15 mg PO QPM 05/04/22 05/04/22 History ondansetron 4 mg disintegrating 4 mg PO DAILY 05/04/22 05/04/22 History tablet sennosides 8.6 mg tablet (senna) 8.6 mg PO BID 05/04/22 05/04/22 History Past Med/Surg History Medical History (Updated 05/04/22 @ 15:03 by CHRISTINA Venegas) Acromioclavicular joint separation Atrial fibrillation CAD (coronary artery disease) "LEONA to LAD cath 2014 - moderate non obstructive disease" Cardiorenal syndrome Cardiorenal syndrome with renal failure CKD (chronic kidney disease), stage IV Clavicle fracture COPD, severe Depression DM type 2 (diabetes mellitus, type 2) Dyslipidemia Encephalopathy Fall GERD (gastroesophageal reflux disease) HTN (hypertension) IBS (irritable bowel syndrome) Nontraumatic intracerebral hemorrhage Surgical History H/O sinus surgery History of total left knee replacement No pertinent past surgical history S/P cholecystectomy Social History Smoking Status: Unknown if ever smoked Hx Alcohol Use: No Hx Substance Use: No Preferred Language: Albanian Communication Ability: Effective Avionics Systems Repairer Required: No Beliefs That Will Affect Care: None marital status: / Current Living Situation: Personal Care Facility Current Living Situation Comment: lives alone Other Information That Helps Us Care for You: No Feels Safe at Home: Yes Safety Concerns: Feels Safe At This Time Assistive Devices: Walker Review of Systems Review of Systems: Unobtainable due to cognitive status Physical Exam Physical Exam: Neuro: somnolent, PERRLA HEENT: head normocephalic, moist mucus membranes CV: irregularly irregular, tachycardic (-) M/G/R, (-) edema, cap refill < 3 seconds Resp: Lungs CTA in all dasilva. On RA GI: Abdomen large/S/NT/ND, hypoactive bowel sounds, (-) CVA tenderness Musculoskeletal: 5/5 B/L UE strength, 5/5 B/L LE strength. No gait disturbance Skin: (-) rashes , (-) erythema. Psych: encephalopathic Results & Data Results & Data ([facility]) Vital Signs (Past 12 Hours) Vital Signs Temp Pulse Resp BP Pulse Ox O2 Del Method O2 Flow Rate 05/04/22 11:54 106 H 18 103/54 L 99 Nasal Cannula 4 05/04/22 11:30 105 H 17 82/41 L 96 Nasal Cannula 4 05/04/22 11:25 107 H 27 H 81/43 L 95 Nasal Cannula 4 05/04/22 11:18 106 H 23 88/53 L 98 Nasal Cannula 4 05/04/22 10:55 36.9 C 05/04/22 10:55 108 H 18 99 Nasal Cannula 4 05/04/22 10:55 108 H 18 99/77 L 99 Nasal Cannula 4 Laboratory Results Short CBC 05/04/22 Range/Units 11:05 WBC 11.96 H (4.8-10.8) K/ul Hgb 11.8 L (12.0-16.0) g/dl Hct 38.9 (34.1-44.9) % Plt Count 153 (130-400) K/uL BMP 05/04/22 11:05 Sodium 140 Potassium 3.4 L Chloride 99 Carbon Dioxide 34 H BUN 28 H Creatinine 5.39 H* Glucose 152 H Calcium 9.5 Liver Function 05/04/22 Range/Units 11:05 Total Bilirubin 0.6 (0.2-1.0) mg/dl AST 17 (13-39) U/L ALT 22 (7-52) U/L Alkaline Phosphatase 62 (34-104) U/L Albumin 2.8 L (3.4-5.0) gm/dl Diagnostic Findings Chest X-Ray 05/04/22 10:55 TWO VIEW CHEST CLINICAL HISTORY: Cough and dyspnea.. FINDINGS: AP and lateral chest radiographs are compared to study dated 04/18/2022 and correlated with chest CT dated 10/20/2021. The patient's head obscures the apices on the AP view. The heart is enlarged noting atherosclerotic calcification of the thoracic aorta. There is pulmonary vascular congestion. Bilateral airspace opacity likely representing pulmonary edema. Small pleural effusions are noted. There is no pneumothorax. The skeletal structures are osteopenic. A left humeral head fracture is again noted. IMPRESSION: 1. Cardiomegaly with evidence of congestive failure. 2. Bilateral airspace opacities likely represent pulmonary edema. Correlate clinically for evidence of a superimposed infectious/inflammatory pneumonitis. Radiographic follow-up to resolution is recommended. 3. Small pleural effusions are noted. ACT 112: Negative or not required by law. Electronically signed by: Derrek Magallon M.D. 05/04/2022 11:58 AM Code Status & VTE Plan Code Status DNR/DNI in the event of cardiac or respiratory arrest VTE Prophylaxis Plan VTE Prophylaxis will be ordered: Yes Supervising Physician Co-Signing Physician Notes Patient is a 76-year-old female with multiple comorbidities presents with history of worsening shortness of breath, change in mental status. Patient is poor historian secondary to mental status, most of the history is obtained from ER physician, old records and family at bedside. Patient has been having nonproductive cough associated with worsening shortness of breath especially since last 2 days. She was tested positive for influenza a, RSV. Please review HPI for complete details of presentation. She initially presented with significant hypotension, which improved during my encounter. Blood work suggestive of leukocytosis, respiratory acidosis with hypercarbia,Mild hypokalemia, 3.4, creatinine 4.39, BUN 38, glucose 152, troponin 227, BNP 1563, albumin 2.8. Procalcitonin 0.46. Chest x-ray suggestive of cardiomegaly with evidence of congestive failure, bilateral airspace opacities likely pulmonary edema, possible pneumonitis, small pleural effusions noted.Urine analysis pending. EKG shows history of A. fib RVR. On exam patient is obese, no apparent distress, normocephalic/atraumatic, EOMI, drowsy but easily awakened, decreased breath sounds, basal crackles, irregularly irregular rhythm, no audible murmur, trace pedal edema, abdomen soft, nontender, normal bowel sounds, drowsy, complete neurological exam could not be performed. Patient is admitted for management of acute respiratory failure with hypoxia, hypercarbia. Likely multifactorial--volume overload in setting of end-stage renal disease, also to rule out CHF. RSV, influenza A infection. A. fib RVR . monitor volume status closely. Nephrology consulted to assist with dialysis to manage volume status. Check resting echo. Started on Tamiflu, empiric antibiotics. Trend cardiac enzymes. BiPAP to help with hypercarbia. Hold home sedative medications. Nebs as needed. Continue metoprolol with holding parameters. N.p.o. for now. Aspiration precautions. Continue Keppra for seizure disorder. I personally reviewed the record. Patient is interviewed and examined at bedside. Patient's care is coordinated with Jia VASQUEZ. Please refer to the documentation above for details of patient's presentation and for discussion of other issues. (1) CAD (coronary artery disease) Associated angina: without angina Coronary Disease-Associated Artery/Lesion type: unspecified vessel or lesion type [place] vs. transplanted heart: si[place] heart Qualified Code(s): I25.10 - Atherosclerotic heart disease of si[place] c oronary artery without angina pectoris
[2022-05-04] MEDS ORDERED: LEVALBUTEROL HCL 1.25 MG/3 ML NEB NEB PRN (14:24)
--- NOTE | 2022-05-04 15:12 | Electrocardiogram Report ---
Test Reason : Blood Pressure : / mmHG Vent. Rate : 101 BPM Atrial Rate : 108 BPM P-R Int : 000 ms QRS Dur : 088 ms QT Int : 322 ms P-R-T Axes : 000 -72 231 degrees QTc Int : 417 ms Atrial fibrillation with rapid ventricular response Left axis deviation Anteroseptal infarct (cited on or before 21-FEB-2022) Abnormal ECG When compared with ECG of 26-FEB-2022 05:01, Questionable change in initial forces of Anteroseptal leads T wave inversion no longer evident in Lateral leads Confirmed by Alan Her ([id number]) on 05/04/2022 3:12:10 PM Referred By: REFERRED SELF Confirmed By:Alan Her
[2022-05-04 15:31] LABS: Adenovirus PCR Not Detected (NotDetected); Bordetella parapertussis PCR Not Detected (NotDetected); Bordetella pertussis PCR Not Detected (NotDetected); Chlamydia pneumoniae PCR Not Detected (NotDetected); Coronavirus 229E PCR Not Detected (NotDetected); Coronavirus CoV-2 (COVID19)PCR Not Detected (NotDetected); Coronavirus HKU1 PCR Not Detected (NotDetected); Coronavirus NL63 PCR Not Detected (NotDetected); Coronavirus OC43PCR Not Detected (NotDetected); Human Metapneumovirus PCR Not Detected (NotDetected); Influenza B PCR Not Detected (NotDetected); Mycoplasma pneumoniae PCR Not Detected (NotDetected); Parainfluenza Virus 1 PCR Not Detected (NotDetected); Parainfluenza Virus 2 PCR Not Detected (NotDetected); Parainfluenza Virus 3 PCR Not Detected (NotDetected); Parainfluenza Virus 4 PCR Not Detected (NotDetected); Rhinovirus/Enterovirus PCR Not Detected (NotDetected)
[2022-05-04 15:45] LABS: Influenza A (H3) PCR DETECTED (NotDetected); Respiratory Syncytial VirusPCR DETECTED (NotDetected)
[2022-05-04] MEDS ORDERED: LEVALBUTEROL HCL 0.63 MG/3 ML NEB NEB PRN (16:45)
[2022-05-04] MEDS ORDERED: OSELTAMIVIR PHOSPHATE 75 MG CAP PO SCH ×2 (17:15→21:00)
[2022-05-04] MEDS ORDERED: METOPROLOL SUCC 50MG EXT REL TAB PO SCH (17:30)
[2022-05-04] MEDS: LIDOCAINE/PRILOCAINE 2.5% EA CRM EXT SCH (19:07)
[2022-05-04 19:21] LABS: Base Excess VBG 1.9 mEq/L; HCO3 VBG 33 mmol/L; Oxygen Saturation VBG < 60.0 %; PCO2 VBG 86 mmHg (38-50); PO2 VBG 19 mmHg; pH VBG 7.19 (7.36-7.41)
[2022-05-04] MEDS: DOXYCYCLINE HYCLATE 100 MG in DEXTROSE 5% 100 ML IV SCH (20:36)
[2022-05-04] MEDS: cefTRIAXone SODIUM 2,000 MG in DEXTROSE 5% 50 ML IV SCH (20:36)
[2022-05-04] MEDS ORDERED: OSELTAMIVIR PHOSPHATE SUSP 30 MG/5 ML UDP PO SCH (21:00)
[2022-05-04] MEDS ORDERED: levETIRAcetam 500 MG in 0.9 % SODIUM CHLORIDE 100 ML IV SCH (21:00)
[2022-05-04] MEDS: *LANTHANUM*ORDER AWAITING ACTION SCH (23:47)
[2022-05-05] MEDS: *LANTHANUM*ORDER AWAITING ACTION SCH ×3 (01:16→18:28)
[2022-05-05 06:21] LABS: Hematocrit (blood only) 36.4 % (34.1-44.9); Hemoglobin 11.5 g/dl (12.0-16.0); Mean Corpuscular Hemoglobin 32.3 pg (25.0-34.0); Mean Corpuscular Hgb Conc 31.6 g/dL (32.0-36.0); Mean Corpuscular Volume 102.2 fL (80.0-100.0); Mean Platelet Volume 13.1 fL (9.4-12.3); Platelet Count 126 K/uL (130-400); RDW Standard Deviation 61.1 fL (36.4-46.3); Red Blood Count 3.56 M/uL (3.93-5.22); White Blood Count 12.91 K/ul (4.8-10.8)
--- NOTE | 2022-05-05 06:37 | XRay Report ---
XR chest 1V portable CLINICAL HISTORY: hypoxia/chf COMPARISON STUDY: Chest CT October 20, 2021. Chest radiograph May 04, 2022. FINDINGS: There is no pneumothorax. Small to moderate right and small left pleural effusions are note d with associated bibasilar opacities, greater on the right. Pulmonary edema has improved. Cardiomega ly is unchanged. IMPRESSION: 1. Interval improvement in pulmonary edema. 2. Small to moderate right and small left pleural effusions with associated bibasilar opacities. Thes e favor atelectasis although consolidation could appear similar. Radiographic follow-up is recommende d. ACT 112: Negative or not required by law. Electronically signed by: Andrews Gauthier M.D. 05/05/2022 6:35 AM
[2022-05-05 06:48] LABS: BUN Creatinine Ratio 5.7 (10-20); Creatinine Clr Calc Pharmacy 8.4 ml/min; Est GFR (African American) 7.5 ml/min; Est GFR (Non-African American) 6.5 ml/min; Magnesium 2.2 mg/dl (1.7-2.4); Phosphorus 3.6 mg/dl (2.5-4.9); Potassium 3.6 mmol/L (3.5-5.1)
[2022-05-05 07:10] LABS: Allen Test POS (Pos); HCO3 ABG 32 mmol/L (19-24); Oxygen Saturation ABG 99.6 % (90-95); PCO2 ABG 65 mmHg (35-46); PO2 ABG 101 mmHg (80-95)
[2022-05-05] MEDS ORDERED: SODIUM CHLORIDE 0.9% 1000ML 1,000 ML IV PRN (07:35)
[2022-05-05] MEDS ORDERED: HEPARIN SOD (PORCINE) 1000 UNIT/ML IV ONE (07:35)
--- NOTE | 2022-05-05 07:39 | Nephrology Consultation ---
Date of Consultation May 05, 2022 Assessment & Plan (1) ESRD (end stage renal disease) on dialysis: -HD today will attempt UF to improve resp status; pressors likely to be needed to maintain blood pressure for this -next HD likely tomorrow; anticipate eval for daily dialysis next few days, to optimize volume status (2) Respiratory failure with hypoxia and hypercapnia: multifactorial; appreciate critical care and cardiology evals -f/u TTE and CT chest -UF as aggressively as she will tolerate w/ HD (3) Goals of care, counseling/discussion: pt has had very challenging 2 mos clinically and is debilitated from over a month of serial/ongoing respiratory infections; agrees to pressors but not to intubation; does agree to cardiac meds -appreciate palliative and other teams' work at goals of care w/ her History of Present Illness Reason for Consultation: ESRD on HD Requesting Physician: Dr Christina Attending Physician: Jose Child MD History of Present Illness 76 y/o F whom I'm asked to see for dialysis needs was brought to ER yesterday from [facility] d/t worsening dyspnea and mental status after struggling over a month as OP w/ serial/intercurrent respiratory infections. PMH includes cerebral amyloid angiopathy s/p hemorrhagic stroke in 2016 after which coumadin was stopped and c/b seizure, September 2019 embolic event w/ transient aphasia, chronic a fib, CAD, BL carotid disease, ESRD on MWF HD at [facility] via AVF, obesity, chronic ambulatory dysfunction (uses walker at baseline). Has been admitted here w/ falls/fractures twice, most recently March 2022 as below; also November 2020 w/ closed L fibular fracture. Prior to this in [phone] (approx) had fallen w/ broke collarbone and admitted to OSH. Note that medical records report COPD and restrictive lung disease and chronic hypoxic respiratory failure; however neither COPD or restrictive lung disease has been fully worked up. Pt last saw pulmonary just before the pandemic > she does not use or require 02 at baseline (prior to march 2022); multiple tests were ordered but not completed. Pulmonary note mentions neither COPD nor restrictive lung dz concern but focuses on deconditioning and fluid overload/non adherence to fluid limits for dialysis. She lives independently in an apartment w/ day time caregivers at baseline as of January 2022; local daughter involved in her care. The pt's ambulatory dysfunction worsened considerably in fall 2021; she was ultimately admitted here w/ L humeral fracture, managed conservatively. She was d/c to SNF for rehab in early March > by mid month had increasing lethargy / irritability; was treated for UTI w/o much improvement. Struggled w/ motivation / energy to participate in therapy. Anti depressants/meds have been rx'd; dialysis staff have expressed concern these may interfere w/ MS. She was still transferring at dialysis w/ a lift on 03/31/22 when she was diagnosed w/ RSV. She unfortunately developed superimposed RLL pneumonia treated with doxycycline. She has had ongoing poor po intake and hypotension, particularly past few weeks. minimal fluid has been removed at dialysis; her baseline blood pressures have dropped from 110-130s systolic to 90s since about 04/18 on dialysis. She was started on remeron on 04/26. She was dx'd w/ influenza A on 04/28; she had been noted to have worsening lethargy and twitching/jerking limb movements just prior to coming to hospital. Her last dialysis was 1/3 for clearance only; not able to tolerate fluid removal that session. on arrival here noted to have pulmonary edema, SBP in 70s, needing 4L 02NC to maintain sats. She had 1/2 L NS and IV albumin w/ some improvement in BP. She was placed on bipap at about midnight. On evaluation she is tired but arouseable today; telling me she's hungry; ROS limited by bipap but she denies uncontrolled pain or dyspnea. Allergies Allergy/AdvReac Type Severity Reaction Status Date / Time verapamil Allergy Mild UNKNOWN Verified 02/25/22 17:13 lisinopril AdvReac Mild COUGH Verified 02/25/22 17:13 Home Medications Medication Instructions Recorded Confirmed Type lidocaine-prilocaine 2.5 %-2.5 % 1 applic topical 3XWK 02/25/22 05/04/22 History topical cream allopurinol 300 mg tablet 450 mg PO DAILY #45 tabs 03/01/22 05/04/22 Rx aspirin 81 mg tablet,delayed 162 mg PO DAILY #30 tabs 03/01/22 05/04/22 Rx release atorvastatin 80 mg tablet 80 mg PO DAILY #30 tabs 03/01/22 05/04/22 Rx calcitriol 0.5 mcg capsule 0.5 mcg PO 3XWK #12 caps 03/01/22 05/04/22 Rx docusate sodium 100 mg capsule 200 mg PO DAILY #60 caps 03/01/22 05/04/22 Rx (Colace) glucosamine [id number] 1 tab PO DAILY #30 tabs 03/01/22 05/04/22 Rx rhiannon 1,500 mg-400 unit-100 mg tablet (Glucosamine Daily Complex) lanthanum 1,000 mg chewable tablet 1,000 mg PO TIDM #90 tabs 03/01/22 05/04/22 Rx levetiracetam 500 mg tablet 500 mg PO .BID UD #32 tabs 03/01/22 05/04/22 Rx levetiracetam 500 mg tablet 500 mg PO .TID ON DIALYSIS DAY #15 03/01/22 05/04/22 Rx tabs trazodone 50 mg tablet 25 mg PO HS #30 tabs 03/01/22 05/04/22 Rx metoprolol succinate 100 mg 50 mg PO DAILY 05/04/22 05/04/22 History tablet,extended release 24 hr metoprolol succinate 50 mg 50 mg PO BID 05/04/22 05/04/22 History tablet,extended release 24 hr mirtazapine 15 mg tablet 15 mg PO QPM 05/04/22 05/04/22 History ondansetron 4 mg disintegrating 4 mg PO DAILY 05/04/22 05/04/22 History tablet sennosides 8.6 mg tablet (senna) 8.6 mg PO BID 05/04/22 05/04/22 History Patient History Medical History (Updated 05/05/22 @ 11:28 by Leeanne Lanza MD, PhD) Acromioclavicular joint separation Atrial fibrillation CAD (coronary artery disease) "LEONA to LAD cath 2015 - moderate non obstructive disease" Carotid stenosis, bilateral Cerebral amyloid angiopathy Clavicle fracture Closed left fibular fracture Contraindication to anticoagulation therapy Depression DM type 2 (diabetes mellitus, type 2) Dyslipidemia End stage renal disease Falls frequently Fracture, humerus GERD (gastroesophageal reflux disease) HTN (hypertension) IBS (irritable bowel syndrome) Nontraumatic intracerebral hemorrhage Seizure disorder Surgical History (Updated 05/05/22 @ 11:12 by Leeanne Lanza MD, PhD) AV fistula H/O sinus surgery History of total left knee replacement S/P cholecystectomy Social History Smoking Status: Unknown if ever smoked Hx Alcohol Use: No Hx Substance Use: No Preferred Language: Welsh Communication Ability: Effective Button Riveter Required: No Beliefs That Will Affect Care: None marital status: / Current Living Situation: Personal Care Facility Current Living Situation Comment: lives alone Other Information That Helps Us Care for You: No Feels Safe at Home: Yes Safety Concerns: Feels Safe At This Time Assistive Devices: Walker Review of Systems Review of Systems: All systems reviewed & are unremarkable except as noted in HPI & below Physical Exam Constitutional: well developed, well nourished, + frail appearing and cooperative; no acute distress Eyes: EOM intact bilaterally ENMT: Ears: no external ear abnormality Nose: no external nose abnormality Mouth: + dry oral mucous membranes Neck: no nuchal rigidity Respiratory: normal respiratory effort (on bipap) Auscultation: + diminished lung sounds and + rhonchi Cardiovascular: Rate/Rhythm: + tachycardic and + irregularly irregular Extremities: + AV fistula (LUE + t/b); no edema Gastrointestinal (Abdomen): Inspection/Auscultation: normal bowel sounds Percussion/Palpation: abdomen soft; abdomen nontender Musculoskeletal: Extremities: strength 5/5 throughout Skin: no rashes, warm and dry Neurologic: schmidt, fluent speech, no tremor Psychiatric: Orientation: oriented to person, oriented to place and cooperative Genitourinary: grove w/ zero output 14 hrs prior to my eval per RN Results & Data ([facility]) Vital Signs (Past 12 Hours) Vital Signs Pulse Resp BP Pulse Ox O2 Del Method FiO2 05/05/22 05:30 112 H 16 139/86 100 BiPAP 05/05/22 04:00 97 H 18 100 BiPAP 05/05/22 04:00 145/88 H 05/05/22 03:01 95 H 12 100 BiPAP 05/05/22 03:01 139/84 05/05/22 04:36 96 H 25 H 96 35 05/05/22 02:00 91 H 12 94/58 L 100 BiPAP 05/05/22 01:17 BiPAP 05/04/22 22:00 95 H 15 98 05/04/22 22:00 123/80 05/04/22 21:50 97 H 18 98 05/04/22 21:40 101 H 22 100 05/04/22 21:30 97 H 12 05/04/22 21:20 95 H 14 97 05/04/22 21:10 99 H 12 05/04/22 21:06 103 H 17 05/04/22 21:06 119/74 05/04/22 21:00 94 H 18 05/04/22 21:00 112/76 05/04/22 20:50 101 H 13 05/04/22 20:40 100 H 12 05/04/22 20:30 100 H 14 05/04/22 20:30 109/74 05/04/22 20:20 102 H 15 05/04/22 20:10 101 H 14 05/04/22 20:00 100 H 14 05/04/22 20:00 108/78 05/04/22 19:50 103 H 15 05/04/22 19:40 102 H 15 05/04/22 21:15 110 H 23 97 35 Laboratory Results 05/05/22 05:54 05/05/22 05:54 Diagnostic Findings cxr 1. Interval improvement in pulmonary edema. 2. Small to moderate right and small left pleural effusions with associated b ibasilar opacities. These favor atelectasis although consolidation could appear similar. Radiographic follow-up is recommended.
--- NOTE | 2022-05-05 08:51 | Critical Care Consultation ---
Date of Consultation May 05, 2022 Assessment & Plan (1) Seizure disorder: (2) End stage renal disease: (3) Acute on chronic respiratory failure with hypoxemia: (4) Influenza A: (5) Pulmonary edema: (6) Atrial fibrillation with rapid ventricular response: (7) CAD (coronary artery disease): (8) HTN (hypertension): (9) DM type 2 (diabetes mellitus, type 2): (10) Sleep apnea: Plan 76-year-old female presented to the hospital because of worsening shortness of breath and lethargy Past medical history: End-stage renal disease getting dialyzed Monday to-Monday, A. fib, coronary artery disease, dyslipidemia, diabetes type 2, [facility] ICU was consulted as patient was requiring BiPAP as well as his blood pressure was borderline low. 2D echo 05/05/22: EF 40-45%, PASP 75 mmHg, severe biatrial enlargement -- Acute on chronic hypoxic respiratory failure Likely secondary to pulmonary edema Patient also is positive for influenza A since 04/28/2022, she is also positive for RSV Patient is past the threshold to give oseltamivir Rest of respiratory bio fire is negative including COVID-19 PCR Procalcitonin 0.5 --Elevated troponin Likely type II MO --New onset CHF with pulmonary hypertension Pulmonary hypertension is a combination of type II and type III Cardiology recommendation -- End-stage renal disease On dialysis On Mlhzam-Mideaundb-Xiczct -- Diabetes type 2 Continue with ICU hypoglycemia protocol --Dyslipidemia Continue with atorvastatin --History of hypertension Hold blood pressure medications --History of seizure disorder Continue with Keppra --Morbid obesity with JOSUÉ Continue with BiPAP/CPAP nightly and as needed shortness of breath --Anxiety/depression Hold mirtazapine and trazodone for the time being --Gout On allopurinol at home --DNR/DNI --Prophylaxis VTE: IPC GI: None Lines: Peripheral Diet: Cardiac-renal Plan: Chest x-ray from today shows improvement compared to the time of presentation. She does have right-sided pleural effusion. Stop oseltamivir Given the borderline low blood pressure. We will keep the patient in the ICU as she might need vasopressor support while getting dialyzed. Respiratory bio fire is negative, procalcitonin 0.5. Probability of patient having bacterial pneumonia is low. Case was discussed with Dr. Child Please note the above document was generated using voice recognition software. It may contain grammatical, syntax or spelling errors.Any formal questions or concerns about the content, text or information contained within the body of this dictation should be directly addressed to the provider for clarification. History of Present Illness Attending Physician: Jose Child MD History of Present Illness 76-year-old female presented to the hospital because of worsening shortness of breath and lethargy Past medical history: End-stage renal disease getting dialyzed Monday hypermanic to-Monday, A. fib, coronary artery disease, dyslipidemia, diabetes type 2, [facility] ICU was consulted as patient was requiring BiPAP as well as his blood pressure was borderline low. Please make note patient is a poor historian Patient seen and examined at bedside. No acute distress. Patient was on BiPAP 15/5, saturating 100% on FiO2 35% I went down on BiPAP to 14/8. And went down on FiO2 30%. She was still saturating 99%. She was not in any respiratory distress. Her map was in the low 70s. She did complain of feeling generalized weakness. Denied any chest pain, no coughing. No fever or chills Was asking to eat. No headache or blurry vision. Allergies Allergy/AdvReac Type Severity Reaction Status Date / Time verapamil Allergy Mild UNKNOWN Verified 02/25/22 17:13 lisinopril AdvReac Mild COUGH Verified 02/25/22 17:13 Home Medications Medication Instructions Recorded Confirmed Type lidocaine-prilocaine 2.5 %-2.5 % 1 applic topical 3XWK 02/25/22 05/04/22 History topical cream allopurinol 300 mg tablet 450 mg PO DAILY #45 tabs 03/01/22 05/04/22 Rx aspirin 81 mg tablet,delayed 162 mg PO DAILY #30 tabs 03/01/22 05/04/22 Rx release atorvastatin 80 mg tablet 80 mg PO DAILY #30 tabs 03/01/22 05/04/22 Rx calcitriol 0.5 mcg capsule 0.5 mcg PO 3XWK #12 caps 03/01/22 05/04/22 Rx docusate sodium 100 mg capsule 200 mg PO DAILY #60 caps 03/01/22 05/04/22 Rx (Colace) glucosamine NZk-A8-Ngvsfzrek 1 tab PO DAILY #30 tabs 03/01/22 05/04/22 Rx rhiannon 1,500 mg-400 unit-100 mg tablet (Glucosamine Daily Complex) lanthanum 1,000 mg chewable tablet 1,000 mg PO TIDM #90 tabs 03/01/22 05/04/22 Rx levetiracetam 500 mg tablet 500 mg PO .BID UD #32 tabs 03/01/22 05/04/22 Rx levetiracetam 500 mg tablet 500 mg PO .TID ON DIALYSIS DAY #15 03/01/22 05/04/22 Rx tabs trazodone 50 mg tablet 25 mg PO HS #30 tabs 03/01/22 05/04/22 Rx metoprolol succinate 100 mg 50 mg PO DAILY 05/04/22 05/04/22 History tablet,extended release 24 hr metoprolol succinate 50 mg 50 mg PO BID 05/04/22 05/04/22 History tablet,extended release 24 hr mirtazapine 15 mg tablet 15 mg PO QPM 05/04/22 05/04/22 History ondansetron 4 mg disintegrating 4 mg PO DAILY 05/04/22 05/04/22 History tablet sennosides 8.6 mg tablet (senna) 8.6 mg PO BID 05/04/22 05/04/22 History Patient History Medical History (Updated 05/05/22 @ 17:32 by Monica Park MD, [facility]) Acromioclavicular joint separation Atrial fibrillation CAD (coronary artery disease) "LEONA to LAD cath 2014 - moderate non obstructive disease" Carotid stenosis, bilateral Cerebral amyloid angiopathy Clavicle fracture Closed left fibular fracture Contraindication to anticoagulation therapy Depression DM type 2 (diabetes mellitus, type 2) Dyslipidemia End stage renal disease Falls frequently Fracture, humerus GERD (gastroesophageal reflux disease) HTN (hypertension) IBS (irritable bowel syndrome) Nontraumatic intracerebral hemorrhage Palliative care encounter Pressure injury of back, unstageable Seizure disorder Surgical History AV fistula H/O sinus surgery History of total left knee replacement S/P cholecystectomy Social History Smoking Status: Never smoker Second Hand Exposure: Yes; Hx Alcohol Use: No Hx Substance Use: No Preferred Language: Uzbek Communication Ability: Effective Endless Bed Drum Sander Required: No Beliefs That Will Affect Care: None marital status: / Current Living Situation: [facility] Current Living Situation Comment: lives alone Other Information That Helps Us Care for You: No Feels Safe at Home: Yes Safety Concerns: Feels Safe At This Time Assistive Devices: Denture - Upper, Denture - Lower, Glasses, Oxygen - Continuous and Wheelchair Review of Systems Review of Systems: All systems reviewed & are unremarkable except as noted in HPI & below Physical Exam Physical Exam: Constitutional: No acute distress HEENT: EOMI, PERRLA Respiratory system: Decreased air entry bilaterally, no wheeze, no rhonchi, positive crackles bilateral lower lobes CVS: S1-S2 positive, no murmurs or gallops Abdomen: Soft, nontender, nondistended, positive bowel sounds x4, obese Extremities: +2 pulses bilaterally radialis/ dorsalis pedis, no cyanosis, +1 pitting edema bilateral lower extremity, left arm fistula Neuro: Awake alert oriented x3 Psych: Normal mood and affect G/U: No Mejia Skin: no rashes, warm and dry Lymphatic: no cervical or axillary lymphadenopathy Results & Data Results & Data ([facility]) Vital Signs (Past 12 Hours) Vital Signs Pulse Resp BP Pulse Ox O2 Del Method FiO2 05/05/22 07:41 105 H 13 134/75 100 BiPAP 05/05/22 05:30 112 H 16 139/86 100 BiPAP 05/05/22 04:00 97 H 18 100 BiPAP 05/05/22 04:00 145/88 H 05/05/22 03:01 95 H 12 100 BiPAP 05/05/22 03:01 139/84 05/05/22 04:36 96 H 25 H 96 35 05/05/22 02:00 91 H 12 94/58 L 100 BiPAP 05/05/22 01:17 BiPAP 05/04/22 22:00 95 H 15 98 05/04/22 22:00 123/80 05/04/22 21:50 97 H 18 98 05/04/22 21:40 101 H 22 100 05/04/22 21:30 97 H 12 05/04/22 21:20 95 H 14 97 05/04/22 21:10 99 H 12 05/04/22 21:06 103 H 17 05/04/22 21:06 119/74 05/04/22 21:00 94 H 18 05/04/22 21:00 112/76 05/04/22 20:50 101 H 13 05/04/22 21:15 110 H 23 97 35 Laboratory Results 05/05/22 05:54 05/05/22 05:54 Coding Level of Care Code INP/OBS CONSULT LVL 4, 60 MIN Diagnoses Seizure disorder G40.909 End stage renal disease N18.6 Acute on chronic respiratory failure with hypoxemia J96.21 Influenza A J10.1 Pulmonary edema J81.1 Atrial fibrillation with rapid ventricular response I48.91 CAD (coronary artery disease) I25.10 Associated angina: without angina Coronary Disease-Associated Artery/Lesion type: unspecified vessel or lesion type [place] vs. transplanted heart: [place] heart HTN (hypertension) I10 Hypertension type: essential hypertension DM type 2 (diabetes mellitus, type 2) E11.9 Sleep apnea G47.30 (1) CAD (coronary artery disease) Associated angina: without angina Coronary Disease-Associated Artery/Lesion type: unspecified vessel or lesion type [place] vs. transplanted heart: [place] heart Qualified Code(s): I25.10 - Atherosclerotic heart disease of [place] coronary artery without angina pectoris (2) HTN (hypertension) Hypertension type: essential hypertension Qualified Code(s): I10 - Essential (primary) hypertension
[2022-05-05] MEDS ORDERED: Flu Vaccine-High Dose (Fluzone-HD) PF 65+ 0.7mL SYR IM ONE (09:00)
[2022-05-05] MEDS ORDERED: PNEUMOCOCCAL Polysaccharide Vaccine 25mcg/0.5mL vial/Syr IM ONE (09:00)
[2022-05-05] MEDS: METOPROLOL SUCC 50MG EXT REL TAB PO SCH ×2 (09:06→21:58)
[2022-05-05] MEDS: levETIRAcetam 500 MG in 0.9 % SODIUM CHLORIDE 100 ML IV SCH ×3 (09:06→21:55)
--- NOTE | 2022-05-05 09:07 | Cardiology Consultation ---
Date of Consultation May 05, 2022 Assessment & Plan (1) Chronic atrial fibrillation: (2) Contraindication to anticoagulation therapy: (3) Coronary artery disease: (4) Hypertensive heart disease: (5) Pulmonary hypertension: (6) Sleep apnea: (7) Chronic right heart failure: (8) Cerebral amyloid angiopathy: (9) Non-traumatic intracerebral ventricular hemorrhage: (10) End stage renal disease: Plan Chronic atrial fibrillation. Rates appropriate for current status. Patient asymptomatic in regards to the chronic atrial fibrillation. Continue metoprolol for rate control. Patient with contraindications to chronic anticoagulation - numerous falls, cerebellar amyloid angiopathy, non-traumatic right posterior nontraumatic intracerebral ventricular hemorrhage complicated by seizure in March 2016 Mildly elevated troponin. Patient with known chronic coronary artery disease with prior LAD intervention. Diagnostic cardiac catheterization last on June 06, 2014 revealed moderate nonobstructive CAD with vessels were notable quite large and tortuous, consistent with her history of hypertension. Asymptomatic. Continue medical management. Volume overload. Multifactorial in etiology. + Hypoalbuminemia. Chronic diastolic/right heart failure. Moderate to severe tricuspid regurgitation with moderate pulmonary hypertension. Untreated sleep apnea. Refer for resting echocardiography. Volume status controlled via hemodialysis. Abnormal CXR. Chart history of severe COPD. Refer for a noncontrast CT chest Cerebrovascular accident in September 2019, in the setting of chronic atrial fibrillation, moderate bilateral carotid vascular disease. Hypertensive heart disease with preserved LV systolic function by prior echocardiography. Dyslipidemia with LDL goal less than 70 mg/dL. Continue atorvastatin 80 mg/day. Supervising Physician Co-Signing Physician Notes 76-year-old female admitted with acute on chronic respiratory failure with hypoxia and hypercapnea. Currently resting comfortably on BiPAP. Being evaluated by wound care and palliative care as well. Progressive dyspnea on exertion noted prior to admission. Patient denies chest discomfort. Preliminary review of bedside 2D transthoracic echocardiogram demonstrates a new apical wall motion abnormality with mild to moderate reduced LV systolic function. PE: Gen: awake and alert. Heart: irregular rhythm, tachycardic. Lungs: crackles at bases B/L. poor effort. Ext: mild edema. A/P: Agree with above PA-C history, physical exam, assessment and plan. Patient appears volume overloaded. Await dialysis treatment for control of volume status. Heart rates appear reasonable at this time. Continue metoprolol as ordered. The results of echocardiogram suggests old LAD territory infarct versus Tak[place]ubo cardiomyopathy. Patient without chest discomfort. No ECG evidence of acute coronary syndrome. Her troponins are mildly elevated secondary to acute decompensated heart failure. History of Present Illness Reason for Consultation: Atrial fibrillation with a rapid ventricular response, ? cardiorenal syndrome Requesting Physician: Demarco Attending Physician: Mateusz History of Present Illness Ms. Sharron Sullivan is a very pleasant 76 year old female who, unfortunately, has experienced a decline in her overall health over the last 6-8 months. She became a resident of [facility] on March 02, 2022 at which time she was admitted after a recurrent mechanical fall that resulted in a mildly displaced avulsion fracture of the left humeral head. In early March she tested positive for RSV. She was noted to have a right lower lobe pneumonia at that time and was treated with doxycycline as well as DuoNebs and Robitussin per documentation. Shortly thereafter she was seen [facility] with shortness of breath attributed to volume overload. On April 28, 2022 she tested positive for influenza A and was treated with Tamiflu. Chest x-ray on May 03, 2022 showed worsening pneumonia versus mass per documentation. Patient has continued to have a cough, with mildly decreased oxygen saturation and poor oral intake noted at the assisted. She experienced worsening depression and was prescribed Remeron towards the end of March. On May 04, 2022 she was noted to be confused and lethargic, with jerking motions of the arm and was transported to the emergency room for further evaluation. Chest x-ray on presentation was interpreted by radiologist as having cardiomegaly with evidence of congestive heart failure, bilateral airspace opacities likely representing pulmonary edema, possibly superimposed infectious/inflammatory pneumonitis small pleural effusions. Laboratory work with leukocytosis. EKG revealed atrial fibrillation with a rapid ventricular response (101 bpm) with left axis deviation, possible old anteroseptal infarct. High-sensitivity troponin I mildly elevated at 227.6, 217.4, 188.0 pg/mL. Patient notably has end-stage renal disease with a left up per extremity AV fistula and undergoes hemodialysis under the direction of Dr. Lanza on Mondays, Wednesdays, and Fridays. Patient evaluated in the Emergency Room, C Pod, Room C08. On BiPAP. No acute distress. Requesting something to drink and eat. Complaints include dry mouth and generalized weakness. She denies chest pain or discomfort. She denies palpitations. She is breathing comfortably. SPO2 is 99%. There is a nonproductive cough. She denies orthopnea. Denies PND. She has chronic lower extremity peripheral edema. Denies subjective fevers or rigors. Cardiovascular and pertinent medical history: ASCVD Status post drug eluting stent implantation to the left anterior descending artery. Last diagnostic cardiac catheterization transpired at [facility] on June 06, 2014 and demonstrated moderate nonobstructive coronary artery disease. Her vessels were noted to be quite large and tortuous, consistent with her history of hypertension. Chronic diastolic/right heart failure. Chronic atrial fibrillation Contraindications to anticoagulation, cerebelar amyloid angiopathy. Cerebelar amyloid angiopathy. March 2016 non-traumatic right posterior non traumatic intracerebral ventricular hemorrhage complicated by seizure. Chart history of severe COPD Nocturnal hypoxemia Unspecified sleep apnea Obesity Hypertension Hyperlipidemia. Chronic kidney disease, initiation of hemodialysis on 07/07/2016 Type II diabetes mellitus Chronic gouty arthropathy GERD Osteoarthritis with lumbar spine stenosis Depression and anxiety. Hospitalization to [facility] in September 2019 with a left parietal cerebrovascular accident. MR the brain demonstrated small foci of restricted water diffusion in the left parietal periventricular white matter consistent with acute to subacute infarct. TPA was not recommended due to patient's improving symptoms. CTA of the neck showed 60% stenosis of the right carotid bulb and a 70% stenosis in the left internal carotid artery. Vascular surgery was consulted. No surgery recommended. Neurology recommended avoiding dual anti-platelet therapy and anticoagulation due to history of cerebral hemorrhage/amyloid angiopathy. Carotid disease, followed by [facility] Family History: Father with stomach cancer. Mother with CAD. Social History: Never Smoker. No history of smokeless tobacco. No alcohol. No illegal drug use. Resident of [facility] since 03/02/2022, previously living in a senior [facility] [employer] [facility]. Allergies Allergy/AdvReac Type Severity Reaction Status Date / Time verapamil Allergy Mild UNKNOWN Verified 02/25/22 17:13 lisinopril AdvReac Mild COUGH Verified 02/25/22 17:13 Home Medications Medication Instructions Recorded Confirmed Type lidocaine-prilocaine 2.5 %-2.5 % 1 applic topical 3XWK 02/25/22 05/04/22 History topical cream allopurinol 300 mg tablet 450 mg PO DAILY #45 tabs 03/01/22 05/04/22 Rx aspirin 81 mg tablet,delayed 162 mg PO DAILY #30 tabs 03/01/22 05/04/22 Rx release atorvastatin 80 mg tablet 80 mg PO DAILY #30 tabs 03/01/22 05/04/22 Rx calcitriol 0.5 mcg capsule 0.5 mcg PO 3XWK #12 caps 03/01/22 05/04/22 Rx docusate sodium 100 mg capsule 200 mg PO DAILY #60 caps 03/01/22 05/04/22 Rx (Colace) glucosamine AXz-T1-Oygadtifc 1 tab PO DAILY #30 tabs 03/01/22 05/04/22 Rx rhiannon 1,500 mg-400 unit-100 mg tablet (Glucosamine Daily Complex) lanthanum 1,000 mg chewable tablet 1,000 mg PO TIDM #90 tabs 03/01/22 05/04/22 Rx levetiracetam 500 mg tablet 500 mg PO .BID UD #32 tabs 03/01/22 05/04/22 Rx levetiracetam 500 mg tablet 500 mg PO .TID ON DIALYSIS DAY #15 03/01/22 05/04/22 Rx tabs trazodone 50 mg tablet 25 mg PO HS #30 tabs 03/01/22 05/04/22 Rx metoprolol succinate 100 mg 50 mg PO DAILY 05/04/22 05/04/22 History tablet,extended release 24 hr metoprolol succinate 50 mg 50 mg PO BID 05/04/22 05/04/22 History tablet,extended release 24 hr mirtazapine 15 mg tablet 15 mg PO QPM 05/04/22 05/04/22 History ondansetron 4 mg disintegrating 4 mg PO DAILY 05/04/22 05/04/22 History tablet sennosides 8.6 mg tablet (senna) 8.6 mg PO BID 05/04/22 05/04/22 History Patient History Medical History (Updated 05/05/22 @ 17:32 by Monica Park MD, [facility]) Acromioclavicular joint separation Atrial fibrillation CAD (coronary artery disease) "LEONA to LAD cath 2014 - moderate non obstructive disease" Carotid stenosis, bilateral Cerebral amyloid angiopathy Clavicle fracture Closed left fibular fracture Contraindication to anticoagulation therapy Depression DM type 2 (diabetes mellitus, type 2) Dyslipidemia End stage renal disease Falls frequently Fracture, humerus GERD (gastroesophageal reflux disease) HTN (hypertension) IBS (irritable bowel syndrome) Nontraumatic intracerebral hemorrhage Palliative care encounter Pressure injury of back, unstageable Seizure disorder Surgical History AV fistula H/O sinus surgery History of total left knee replacement S/P cholecystectomy Social History Smoking Status: Never smoker Second Hand Exposure: Yes; Hx Alcohol Use: No Hx Substance Use: No Preferred Language: Tajik Communication Ability: Effective Electronic Scale Subassembler Required: No Beliefs That Will Affect Care: None marital status: / Current Living Situation: Longterm Current Living Situation Comment: lives alone Other Information That Helps Us Care for You: No Feels Safe at Home: Yes Safety Concerns: Feels Safe At This Time Assistive Devices: Denture - Upper, Denture - Lower, Glasses, Oxygen - Continuous and Wheelchair Review of Systems Review of Systems: A Complete Review of Systems was unable to be obtained due to the patient's status. Physical Exam Physical Exam: General: A&Ox3. NAD. On BiPAP. HENT: Normocephalic. Atraumatic. Mouth: Dry. Eyes: PER. Conjunctiva pink, no scleral icterus. Neck: No JVD. Heart: Irregularly irregular at 100 bpm. Soft apical holosystolic murmur. No rub. PMI is not displaced. No RV heave. Lungs: Diminished. Clear anteriorly. No wheeze. Abdomen: +BS. Soft. Nontender. No masses or organomegaly. No abdominal bruits. Extremities: Mild edema. Lymphedematous changes. Lower extremity wounds. No clubbing. No cyanosis. Left upper extremity fistula. Distal lower extremity pulses were not appreciated. Results & Data ([facility]) Vital Signs (Past 12 Hours) Vital Signs Pulse Resp BP Pulse Ox O2 Del Method FiO2 05/05/22 07:41 105 H 13 134/75 100 BiPAP 05/05/22 05:30 112 H 16 139/86 100 BiPAP 05/05/22 04:00 97 H 18 100 BiPAP 05/05/22 04:00 145/88 H 05/05/22 03:01 95 H 12 100 BiPAP 05/05/22 03:01 139/84 05/05/22 04:36 96 H 25 H 96 35 05/05/22 02:00 91 H 12 94/58 L 100 BiPAP 05/05/22 01:17 BiPAP 05/04/22 22:00 95 H 15 98 05/04/22 22:00 123/80 05/04/22 21:50 97 H 18 98 05/04/22 21:40 101 H 22 100 05/04/22 21:30 97 H 12 05/04/22 21:20 95 H 14 97 05/04/22 21:10 99 H 12 05/04/22 21:06 103 H 17 05/04/22 21:06 119/74 05/04/22 21:15 110 H 23 97 35 Laboratory Results Cardiac Enzymes 05/04/22 05/04/22 05/04/22 Range/Units 11:05 11:05 18:29 AST 17 (13-39) U/L Troponin I High Sens 227.6 H* 217.4 H* (0-14) pg/ml B-Natriuretic Peptide 1563 H (0-100) pg/ml 05/05/22 Range/Units 05:54 AST (13-39) U/L Troponin I High Sens 188.0 H* (0-14) pg/ml B-Natriuretic Peptide (0-100) pg/ml Coagulation 05/04/22 05/04/22 Range/Units 11:05 11:05 PT 11.9 (9.0-12.0) Seconds APTT 23.1 (21.0-31.0) Seconds B-Natriuretic Peptide 1563 H (0-100) pg/ml CBC 05/04/22 05/05/22 Range/Units 11:05 05:54 WBC 11.96 H 12.91 H (4.8-10.8) K/ul RBC 3.66 L 3.56 L (3.93-5.22) M/uL Hgb 11.8 L 11.5 L (12.0-16.0) g/dl Hct 38.9 36.4 (34.1-44.9) % Plt Count 153 126 L (130-400) K/uL Neut # (Auto) 9.51 H (1.4-6.5) K/uL Lymph # (Auto) 1.39 (1.2-3.4) K/uL [place] # (Auto) 0.79 (0.24-0.82) K/uL Eos # (Auto) 0.05 (0-0.50) K/uL Baso # (Auto) 0.05 (0-0.2) K/uL Comprehensive Metabolic Panel 05/04/22 05/05/22 Range/Units 11:05 05:54 Sodium 140 139 (136-145) mmol/L Potassium 3.4 L 3.6 (3.5-5.1) mmol/L Chloride 99 100 (98-107) mmol/L Carbon Dioxide 34 H 29 (21-32) mmol/L BUN 28 H 33 H (6-23) mg/dl Creatinine 5.39 H* 5.76 H* D (0.6-1.2) mg/dl Glucose 152 H 87 (70-99(Fasting)) mg/dl Calcium 9.5 9.0 (8.5-10.1) mg/dl AST 17 (13-39) U/L ALT 22 (7-52) U/L Alkaline Phosphatase 62 (34-104) U/L Total Protein 5.6 L (6.0-8.3) gm/dl Albumin 2.8 L (3.4-5.0) gm/dl Intake and Output 05/04/22 05/05/22 05/05/22 22:59 06:59 14:59 Intake Total 1005 / 1005 Balance 1005 / 1005 Intake: IV 885 / 885 ALBUMIN 25% 100 mL 25 gm In 100 100 / 100 ml @ 50 mls/hr IV ONE ONE Rx#: [id number] Doxycycline Hyclate 100 mg In 110 / 110 Dextrose 5% 100 ml @ 50 mls/hr IV BID [facility] Rx#:[id number] Sodium Chloride 0.9% 500 ml @ 500 / 500 999 mls/hr IV .Q31M ONE Rx#: [id number] cefTRIAXone SODIUM 2,000 mg In 70 / 70 Dextrose 5% 50 ml @ 100 mls/hr IV Q24H [facility] Rx#:[id number] levETIRAcetam 500 mg In 0.9 % 105 / 105 Sodium Chloride 100 ml @ 420 mls/hr IV MoWeFr@0900,1400,2100 [facility] Rx#:[id number] Oral 120 / 120 Other: Weight 83.3 kg Weight Measurement Method Built in [facility]
--- NOTE | 2022-05-05 09:29 | Palliative Care Consultation ---
Date of Consultation May 05, 2022 Assessment & Plan (1) Palliative care encounter: Met with pt at bedside AND called daughter Linda on phone separately: for both encounters, I provided overview of Palliative Medicine, a subspecialty that provides specialized medical care for people living with a serious illness by offering a focus on quality of life. Palliative Medicine is often conflated with hospice: I advised patient/family that Palliative and hospice can be partners but we are not the same. It is important to understand the difference so that we may be informed, and not afraid. Palliative Medicine works to improve QOL through reduction of symptom burden/more control over their illness, for both the patient and family. Palliative medicine clinicians are board certified, specially-trained and another member of the patient's medical care team. We often provide an extra layer of support because our care is based on the needs of the patient, not the prognosis; as such, it's appropriate at any age/advancing stage of a serious illness and can be provided along with curative treatment. Palliative Medicine clinicians are also trained in advanced communication methodologies, to facilitate complex discussions about advanced illness planning, which are needed to help assure that the treatment choices match the patient's goals, aka delivering Goal Concordant care. Finally, we discussed that hospice is a visiting nurse service that focuses on care delivered at the very end of life for patients with terminal illness, with life expectancy less than 6 month. (2) Goals of care, counseling/discussion: ACP/GOC x 22 min discussion with Linda/dtr/POA via telephone. She is very anxious/needed a lot of reassurance that my seeing pt did not equate with "pt is dying/we are not going to do any treatment." We spoke about what is palliative medicine, etc., and reviewed goals. Linda states pt wants all reasonable interventions to try and get better, noting that pt had a reasonable QOL before the past few weeks. patient and Linda believe HD with pressor, ICU admission etc. are reasonable to try for now to see how much better things can get. Linda did seem reasonable in her awareness that if these escalated measures do not help and/or pt worsens, then transitions in the plan of care would be needed. I emphasized that is not where we are at this moment. Linda cannot come in until around 5pm today, but will plan to come earlier tomorrow (needs to make arrangements at work.) We have agreed for a tentative family meeting tomorrow a round 330/4pm - she will ask nursing to page us when she arrives. I also met with pt at bedside in ED. She is awake and alert on BiPAP. She asks for her dentures to be removed, the lower dentures were able to be easily removed by wound RN, uppers would not come up. dentures are placed in an [facility] denture cup labeled with pt name, on her bedside table. Nursing aware. Pt denies acute pain, + resp distress. She notes her troubles began with a fall and fractures a few months ago which led to detention then she had RSV a month ago, with PNA and now has Flu A with another PNC + fluid overload/pulm edema. She is able to answer questions appropriately through BiPAP. She is friendly and engaging, at the time of this visit she was decisional. She is in agreement with plan to try the escalated therapies of pressors/BP support meds and HD to improve volume status. I have updated primary team, nephro and CCM. (3) Pressure injury of back, unstageable: Mahsa has a small but unstageable pressure injury on her low back, it is purplish-red in color. This was assessed/cleaned/measured and dressed with wound care. We will re measure tomorrow; if there is any rapid progression, it may be a Mata terminal ulcer (KTU) which may indicate prognosis will be poor. KTUs are a skin wound that occurs despite best preventative measures and results from the moribund functional status and underlying skin failure associated with the dying process. They can develop and appear within a matter of hours, in comparison to usual pressure ulcers which develop over approximately 5 days; primarily the sacral region but KTUs are also seen in other bony prominences, such as the elbows, shoulders, and heels. The wound is usually irregularly- shaped, pear-shaped, or butterfly-shaped; > 2 inches in diameter; and may include red, yellow, black, and/or purple discoloration. (4) Cardiorenal syndrome with renal failure: management per cardiology and nephrology (5) Respiratory failure with hypoxia and hypercapnia: (6) End stage renal disease: (7) Pulmonary hypertension: (8) Chronic right heart failure: (9) Sleep apnea: Plan Allow a tincture of time for the escalated interventions to see if we can fix what's fixable/treat what's treatable. Patient has had more detailed conversations with her daughter about preferences and limits to acre but daughter did not want to discuss that today, was very anxious. Allowing some time to see how patient responds to interventions will be reasonable at this ti me, but I recommend we allot a a time frame, ex: 3 day trial, to see if our measures can help. If pt worsens in spite of escalating support then that would be a sign that these interventions are not helping. History of Present Illness Reason for Consultation: " On 05/04/22 @ 14:49 Jia Pal I. Wrote To Therese Ortega CHF/ESRD; cardiorenal syndrome. Goals of Care" Attending Physician: Jose Child MD History of Present Illness 76yo female admitted from SNf with progressive SOB and AMS. [facility] reports she tested +flu 04/28 with underlying PNA. Patient has chronic resp failure, at baseline requiring 3-4 LPM [place] [facility] started her on Paxlovid, she had 2 doses She has ESRD on HD, last HD 04/29/2022 An excellent summary of her medical issues is outlined in cardiology consult as follows: Cardiovascular and pertinent medical history: ASCVD Status post drug eluting stent implantation to the left anterior descending artery. Last diagnostic cardiac catheterization transpired at [facility] on June 06, 2014 and demonstrated moderate nonobstructive coronary artery disease. Her vessels were noted to be quite large and tortuous, consistent with her history of hypertension. Chronic diastolic/right heart failure. Chronic atrial fibrillation Contraindications to anticoagulation, cerebellar amyloid angiopathy. Cerebellar amyloid angiopathy. 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 Chart history of severe COPD Nocturnal hypoxemia Unspecified sleep apnea Obesity Hypertension Hyperlipidemia. Chronic kidney disease, initiation of hemodialysis on 07/07/2016 Type II diabetes mellitus Chronic gouty arthropathy GERD Osteoarthritis with lumbar spine stenosis Depression and anxiety. Hospitalization to [facility] in September 2019 with a left parietal cerebrovascular accident. MR the brain demonstrated small foci of restricted water diffusion in the left parietal periventricular white matter consistent with acute to subacute infarct. TPA was not recommended due to patient's improving symptoms. CTA of the neck showed 60% stenosis of the right carotid bulb and a 70% stenosis in the left internal carotid artery. Vascular surgery was consulted. No surgery recommended. Neurology recommended avoiding dual anti-platelet therapy and anticoagulation due to history of cerebral hemorrhage/amyloid angiopathy. 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 She was AAO with ED physician but became less alert by the time medicine consult was called for possible admission. Allergies Allergy/AdvReac Type Severity Reaction Status Date / Time verapamil Allergy Mild UNKNOWN Verified 02/25/22 17:13 lisinopril AdvReac Mild COUGH Verified 02/25/22 17:13 Home Medications Medication Instructions Recorded Confirmed Type lidocaine-prilocaine 2.5 %-2.5 % 1 applic topical 3XWK 02/25/22 05/04/22 History topical cream allopurinol 300 mg tablet 450 mg PO DAILY #45 tabs 03/01/22 05/04/22 Rx aspirin 81 mg tablet,delayed 162 mg PO DAILY #30 tabs 03/01/22 05/04/22 Rx release atorvastatin 80 mg tablet 80 mg PO DAILY #30 tabs 03/01/22 05/04/22 Rx calcitriol 0.5 mcg capsule 0.5 mcg PO 3XWK #12 caps 03/01/22 05/04/22 Rx docusate sodium 100 mg capsule 200 mg PO DAILY #60 caps 03/01/22 05/04/22 Rx (Colace) glucosamine KKg-C0-Sqidzrxpc 1 tab PO DAILY #30 tabs 03/01/22 05/04/22 Rx rhiannon 1,500 mg-400 unit-100 mg tablet (Glucosamine Daily Complex) lanthanum 1,000 mg chewable tablet 1,000 mg PO TIDM #90 tabs 03/01/22 05/04/22 Rx levetiracetam 500 mg tablet 500 mg PO .BID UD #32 tabs 03/01/22 05/04/22 Rx levetiracetam 500 mg tablet 500 mg PO .TID ON DIALYSIS DAY #15 03/01/22 05/04/22 Rx tabs trazodone 50 mg tablet 25 mg PO HS #30 tabs 03/01/22 05/04/22 Rx metoprolol succinate 100 mg 50 mg PO DAILY 05/04/22 05/04/22 History tablet,extended release 24 hr metoprolol succinate 50 mg 50 mg PO BID 05/04/22 05/04/22 History tablet,extended release 24 hr mirtazapine 15 mg tablet 15 mg PO QPM 05/04/22 05/04/22 History ondansetron 4 mg disintegrating 4 mg PO DAILY 05/04/22 05/04/22 History tablet sennosides 8.6 mg tablet (senna) 8.6 mg PO BID 05/04/22 05/04/22 History Patient History Medical History (Updated 05/05/22 @ 12:35 by Rachell Swain DNP) Acromioclavicular joint separation Atrial fibrillation CAD (coronary artery disease) "LEONA to LAD cath 2014 - moderate non obstructive disease" Carotid stenosis, bilateral Cerebral amyloid angiopathy Clavicle fracture Closed left fibular fracture Contraindication to anticoagulation therapy Depression DM type 2 (diabetes mellitus, type 2) Dyslipidemia End stage renal disease Falls frequently Fracture, humerus GERD (gastroesophageal reflux disease) HTN (hypertension) IBS (irritable bowel syndrome) Nontraumatic intracerebral hemorrhage Palliative care encounter Pressure injury of back, unstageable Seizure disorder Surgical History AV fistula H/O sinus surgery History of total left knee replacement S/P cholecystectomy Social History Smoking Status: Unknown if ever smoked Hx Alcohol Use: No Hx Substance Use: No Preferred Language: Vietnamese Communication Ability: Effective 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 Beliefs That Will Affect Care: None marital status: / Current Living Situation: Personal Care Facility Current Living Situation Comment: lives alone Other Information That Helps Us Care for You: No Feels Safe at Home: Yes Safety Concerns: Feels Safe At This Time Assistive Devices: Walker Review of Systems Review of Systems: All systems reviewed & are unremarkable except as noted in Subjective Physical Exam Constitutional: well nourished and + ill appearing Eyes: PERRL, conjunctivae normal, anicteric sclerae ENMT: Mouth: + dry oral mucous membranes and + dentures Neck: trachea midline, no thyromegaly Respiratory: + labored breathing, + uses accessory muscles and + cough Auscultation: + diminished lung sounds, + crackles and + rhonchi Cardiovascular: Rate/Rhythm: + irregularly irregular Heart Sounds: + murmur (holosystolic) Chest (Breasts): Additional Comments: anterior chest wall tenderness left uper chest wall to mid sternal regio, to palpation. no obvious mass of lesion noted, no warmth, erythema or skin abnormality noted. Gastrointestinal (Abdomen): Inspection/Auscultation: normal bowel sounds Percussion/Palpation: abdomen soft and + hernia Rectal Exam: + hemorrhoids (?prolapsed, with soft oozing stool) Musculoskeletal: generalized weakness Skin: skin pale and cool to touch BUE, weeping edema LUE. BLE with less edema, right great toe with avulsion injury/old blood. BIlat heels with red blanching, +foam dressings applied. there is an unstageable purple-red tissue injury at sacral region, irregularly shaped. This was assessed with Wound Care, measured/cleaned/dressed. Neurologic: Pt was AAOx2 (place, knew season is winter but did not know the date) Results & Data ([facility]) Vital Signs (Past 12 Hours) Vital Signs Pulse Resp BP Pulse Ox O2 Del Method FiO2 05/05/22 07:41 105 H 13 134/75 100 BiPAP 05/05/22 05:30 112 H 16 139/86 100 BiPAP 05/05/22 04:00 97 H 18 100 BiPAP 05/05/22 04:00 145/88 H 05/05/22 03:01 95 H 12 100 BiPAP 05/05/22 03:01 139/84 05/05/22 04:36 96 H 25 H 96 35 05/05/22 02:00 91 H 12 94/58 L 100 BiPAP 05/05/22 01:17 BiPAP 05/04/22 22:00 95 H 15 98 05/04/22 22:00 123/80 05/04/22 21:50 97 H 18 98 05/04/22 21:40 101 H 22 100 05/04/22 21:30 97 H 12 Laboratory Results reviewed Diagnostic Findings CXR, 05/04/2022: 1. Cardiomegaly with evidence of congestive failure. 2. Bilateral airspace opacities likely represent pulmonary edema. Correlate clinically for evidence of a superimposed infectious/inflammatory pneumonitis. Radiographic follow-up to resolution is recommended. 3. Small pleural effusions are noted. Echo: Preliminary review of bedside 2D transthoracic echocardiogram demonstrates a new apical wall motion abnormality with mild to moderate reduced LV systolic function. PG Care Time/CCT Total # of Minutes Spent Total Time Spent with Patient: Total time spent is greater than 50% in coordination of care (as documented) at patient's floor/unit and/or counseling patient: I spent 75 minutes overall addressing this case: 15 in medical data review/discussion with referring provider(s) and/or preparation for the visit 45 in direct interaction with the patient and 20min on phone with daughter (25) Advance Care Planning/Goals of Care discussions as detailed above in note (must be >16min) 5 in subsequent review and synthesis of assessment and plan 10 in communicating with other providers regarding the patient's case: primary teams, nursing, wound care Prolonged Care Time Prolonged Care Time: Yes Advanced Care Planning 95080 Advanced Care Planning 30 Min Coding Level of Care Code New Pt INP/OBS CONSULT LVL 5, 80 MIN Patient Type New History Comprehensive Exam Comprehensive Medical Decision Making Moderate Complexity Diagnoses Palliative care encounter Z51.5 Goals of care, counseling/discussion Z71.89 Pressure injury of back, unstageable L89.100 Cardiorenal syndrome with renal failure I13.10 Respiratory failure with hypoxia and hypercapnia J96.91; J96.92 End stage renal disease N18.6 Pulmonary hypertension I27.20 Chronic right heart failure I50.812 Sleep apnea G47.30 Additional Codes Prolonged Care Time - Prolonged Care Time: Yes ([id number]) Advanced Care Planning - 54982 Advanced Care Planning 30 Min: 32340 Advanced Care Planning 30 Min ([id number])
--- NOTE | 2022-05-05 10:12 | Hospitalist Progress Note ---
Date of Service May 05, 2022 Assessment & Plan (1) Cardiorenal syndrome with renal failure: (2) Influenza A: (3) Pulmonary edema: (4) Seizure disorder: (5) Atrial fibrillation with rapid ventricular response: (6) CAD (coronary artery disease): (7) Dyslipidemia: (8) DM type 2 (diabetes mellitus, type 2): (9) GERD (gastroesophageal reflux disease): Plan Cardiorenal syndrome with renal failure: Pulmonary edema: CXR: Cardiomegaly with evidence of congestive failure; pulmonary edema. Correlate clinically for evidence of a superimposed infectious/inflammatory pneumonitis; Small pleural effusions. Patient hypotensive in ED; 70/50 (55); albumin IV administered x1; SBP now 90 0.9 NSB 500 mL bolus x1 in ED Makes trace amt of urine. Per nursing facility patient makes small amounts of urine Last dialysis; no fluid removal was 05/03/22 Cardiology and nephrology consulted; discussed with Dr. Lanza. 05/05 -continue by Dr. Liu. Need for dialysis. Patient hypotensive in ED yesterday, currently on BiPAP. Per nephrology patient may need ICU. Contacted electrical controls engineer, plan for transfer to ICU for now. Patient is alert awake, tolerating BiPAP well. Feels weak but otherwise has no complaints at this time. Procalcitonin negative Palliative consult placed as patient with multiple comorbid conditions and general goals of care conversation would be helpful. Influenza A: Will order renal dose Tamiflu while here CAD: Atrial fibrillation with RVR: HR 106 in ED Not on any anticoagulation Metoprolol note different dosing on HD days; hold as hypotensive Cardiology consulted History of seizure disorder: Takes Keppra; will switch to IV as pt is NPO Dyslipidemia: Takes Atorvastatin; hold for now due to somnolence - ok to resume if pt ok to take po Gout: Takes Allopurinol; no active signs of flare; heldon admission due to somnolence , ok to resume if pt can take po Depression and Anxiety: Takes Mertazapime; hold for now Takes Trazadone (2 week trial to complete 05/09 per OP records); held on admission due to somnolence Disposition: PCP: Dr. Cerda CODE STATUS: DNR/DNI VTE prophylaxis: Teds and SCDs for now Admission and Anticipated Discharge Date Admission Date: May 04, 2022 Subjective Pt seen in follow-up for hypoxic respiratory failure, CHF, end-stage renal disease on dialysis Patient currently in ED, on BiPAP, echo being obtained She was hypotensive in the ED yesterday, received albumin, nephrology was contacted Engraving Operator, this morning, discussed need for dialysis, and possibly ICU placement, patient may need pressors Discussed with electrical controls engineer, and for now patient would be in ICU Overall she seems to be improving She is awake alert. Only complains of weakness, however no chest pain. D ifficult to obtain full ROS due to patient being on a BiPAP however patient is comfortable on BiPAP. Slightly tachycardic. Cardiology was also consulted. Positive for RSV, and influenza, Procalcitonin 0.5 Review of Systems Review of Systems: All systems reviewed & are unremarkable except as noted in Subjective Physical Exam Physical Exam: General: Elderly female, obese, on BiPAP HEENT: head normocephalic, moist mucus membranes CV: irregularly irregular, tachycardic (-) M/G/R, (-) edema Resp: bibasilar crackles GI: Abdomen soft, +obese, NT/ND Musculoskeletal: moves extremities Neuro: Awake alert. Able to answer simple questions. Moves extremities. Skin: (-) rashes , (-) erythema. Results & Data Results & Data ([facility]) Vital Signs (Past 12 Hours) Vital Signs Pulse Resp BP Pulse Ox O2 Del Method FiO2 05/05/22 09:02 102 H 14 131/93 98 BiPAP 05/05/22 08:20 105 H 15 103/63 100 BiPAP 05/05/22 07:41 105 H 13 134/75 100 BiPAP 05/05/22 05:30 112 H 16 139/86 100 BiPAP 05/05/22 04:00 97 H 18 100 BiPAP 05/05/22 04:00 145/88 H 05/05/22 03:01 95 H 12 100 BiPAP 05/05/22 03:01 139/84 05/05/22 04:36 96 H 25 H 96 35 05/05/22 02:00 91 H 12 94/58 L 100 BiPAP 05/05/22 01:17 BiPAP Laboratory Results 05/05/22 05/05/22 05/05/22 Range/Units 06:45 05:54 05:54 WBC (4.8-10.8) K/ul RBC (3.93-5.22) M/uL Hgb (12.0-16.0) g/dl Hct (34.1-44.9) % MCV (80.0-100.0) fL MCH (25.0-34.0) pg MCHC (32.0-36.0) g/dL RDW Std Deviation (36.4-46.3) fL RDW Coeff of Edin (11.5-14.5) % Plt Count (130-400) K/uL MPV (9.4-12.3) fL Immature Gran % (Auto) % Neut % (Auto) % Lymph % (Auto) % [place] % (Auto) % Eos % (Auto) % Baso % (Auto) % Neut # (Auto) (1.4-6.5) K/uL Lymph # (Auto) (1.2-3.4) K/uL [place] # (Auto) (0.24-0.82) K/uL Eos # (Auto) (0-0.50) K/uL Baso # (Auto) (0-0.2) K/uL Immature Gran # (Auto) (0.00-0.02) K/uL PT (9.0-12.0) Seconds INR (0.9-1.1) APTT (21.0-31.0) Seconds PTT Ratio ABG pH 7.30 L ABG pCO2 65 H ABG pO2 101 H ABG HCO3 32 H ABG O2 Saturation 99.6 H ABG Base Excess 4.0 H Ethan Test POS VBG pH (7.36-7.41) VBG pCO2 (38-50) mmHg VBG pO2 mmHg VBG HCO3 mmol/L VBG O2 Saturation % VBG Base Excess mEq/L Barometric Pressure Oxygen Given 100% Sodium 139 (136-145) mmol/L Potassium 3.6 (3.5-5.1) mmol/L Chloride 100 (98-107) mmol/L Carbon Dioxide 29 (21-32) mmol/L Anion Gap 10 (3-11) BUN 33 H (6-23) mg/dl Creatinine 5.76 H* D (0.6-1.2) mg/dl Est Cr Clr Drug Dosing 8.4 ml/min Est GFR ( Amer) 7.5 ml/min Est GFR (Non-Af Amer) 6.5 ml/min BUN/Creatinine Ratio 5.7 L (10-20) Glucose 87 (70-99(Fasting)) mg/dl Estimat Average Glucose Hemoglobin A1c Calcium 9.0 (8.5-10.1) mg/dl Phosphorus 3.6 (2.5-4.9) mg/dl Magnesium 2.2 (1.7-2.4) mg/dl Total Bilirubin (0.2-1.0) mg/dl AST (13-39) U/L ALT (7-52) U/L Alkaline Phosphatase (34-104) U/L Troponin I High Sens 188.0 H* (0-14) pg/ml B-Natriuretic Peptide (0-100) pg/ml Total Protein (6.0-8.3) gm/dl Albumin (3.4-5.0) gm/dl Globulin (2.5-4.0) gm/dl Albumin/Globulin Ratio (0.9-2) Procalcitonin 0.50 (0-0.5) ng/ml Nasal Screen MRSA (PCR) (Negative) Adenovirus (PCR) (NotDetected) B. pertussis DNA (PCR) (NotDetected) B.parapertussis DNA PCR (NotDetected) C. pneumoniae DNA (PCR) (NotDetected) Coronavirus OC43 (PCR) (NotDetected) Coronavirus HKU1 (PCR) (NotDetected) Coronavirus 229E (PCR) (NotDetected) SARS-CoV-2 (PCR) (NotDetected) Coronavirus NL63 (PCR) (NotDetected) Human Metapneumovir PCR (NotDetected) Influenza A (H3) PCR (NotDetected) Influenza Type B (PCR) (NotDetected) M. pneumoniae (PCR) (NotDetected) Parainfluenza 1 (PCR) (NotDetected) Parainfluenza 2 (PCR) (NotDetected) Parainfluenza 3 (PCR) (NotDetected) Parainfluenza 4 (PCR) (NotDetected) RSV (PCR) (NotDetected) Entero/Rhino (PCR) (NotDetected) 05/05/22 05/05/22 05/05/22 Range/Units 05:54 05:40 01:42 WBC 12.91 H (4.8-10.8) K/ul RBC 3.56 L (3.93-5.22) M/uL Hgb 11.5 L (12.0-16.0) g/dl Hct 36.4 (34.1-44.9) % MCV 102.2 H (80.0-100.0) fL MCH 32.3 (25.0-34.0) pg MCHC 31.6 L (32.0-36.0) g/dL RDW Std Deviation 61.1 H (36.4-46.3) fL RDW Coeff of Edin 16.0 H (11.5-14.5) % Plt Count 126 L (130-400) K/uL MPV 13.1 H (9.4-12.3) fL Immature Gran % (Auto) % Neut % (Auto) % Lymph % (Auto) % [place] % (Auto) % Eos % (Auto) % Baso % (Auto) % Neut # (Auto) (1.4-6.5) K/uL Lymph # (Auto) (1.2-3.4) K/uL [place] # (Auto) (0.24-0.82) K/uL Eos # (Auto) (0-0.50) K/uL Baso # (Auto) (0-0.2) K/uL Immature Gran # (Auto) (0.00-0.02) K/uL PT (9.0-12.0) Seconds INR (0.9-1.1) APTT (21.0-31.0) Seconds PTT Ratio ABG pH Cancelled ABG pCO2 Cancelled ABG pO2 Cancelled ABG HCO3 Cancelled ABG O2 Saturation Cancelled ABG Base Excess Cancelled Ethan Test Cancelled VBG pH (7.36-7.41) VBG pCO2 (38-50) mmHg VBG pO2 mmHg VBG HCO3 mmol/L VBG O2 Saturation % VBG Base Excess mEq/L Barometric Pressure Cancelled Oxygen Given Cancelled Sodium (136-145) mmol/L Potassium (3.5-5.1) mmol/L Chloride (98-107) mmol/L Carbon Dioxide (21-32) mmol/L Anion Gap (3-11) BUN (6-23) mg/dl Creatinine (0.6-1.2) mg/dl Est Cr Clr Drug Dosing ml/min Est GFR ( Amer) ml/min Est GFR (Non-Af Amer) ml/min BUN/Creatinine Ratio (10-20) Glucose (70-99(Fasting)) mg/dl Estimat Average Glucose Hemoglobin A1c Calcium (8.5-10.1) mg/dl Phosphorus (2.5-4.9) mg/dl Magnesium (1.7-2.4) mg/dl Total Bilirubin (0.2-1.0) mg/dl AST (13-39) U/L ALT (7-52) U/L Alkaline Phosphatase (34-104) U/L Troponin I High Sens (0-14) pg/ml B-Natriuretic Peptide (0-100) pg/ml Total Protein (6.0-8.3) gm/dl Albumin (3.4-5.0) gm/dl Globulin (2.5-4.0) gm/dl Albumin/Globulin Ratio (0.9-2) Procalcitonin (0-0.5) ng/ml Nasal Screen MRSA (PCR) Negative (Negative) Adenovirus (PCR) (NotDetected) B. pertussis DNA (PCR) (NotDetected) B.parapertussis DNA PCR (NotDetected) C. pneumoniae DNA (PCR) (NotDetected) Coronavirus OC43 (PCR) (NotDetected) Coronavirus HKU1 (PCR) (NotDetected) Coronavirus 229E (PCR) (NotDetected) SARS-CoV-2 (PCR) (NotDetected) Coronavirus NL63 (PCR) (NotDetected) Human Metapneumovir PCR (NotDetected) Influenza A (H3) PCR (NotDetected) Influenza Type B (PCR) (NotDetected) M. pneumoniae (PCR) (NotDetected) Parainfluenza 1 (PCR) (NotDetected) Parainfluenza 2 (PCR) (NotDetected) Parainfluenza 3 (PCR) (NotDetected) Parainfluenza 4 (PCR) (NotDetected) RSV (PCR) (NotDetected) Entero/Rhino (PCR) (NotDetected) 05/04/22 05/04/22 05/04/22 Range/Units 18:29 18:29 18:29 WBC (4.8-10.8) K/ul RBC (3.93-5.22) M/uL Hgb (12.0-16.0) g/dl Hct (34.1-44.9) % MCV (80.0-100.0) fL MCH (25.0-34.0) pg MCHC (32.0-36.0) g/dL RDW Std Deviation (36.4-46.3) fL RDW Coeff of Edin (11.5-14.5) % Plt Count (130-400) K/uL MPV (9.4-12.3) fL Immature Gran % (Auto) % Neut % (Auto) % Lymph % (Auto) % [place] % (Auto) % Eos % (Auto) % Baso % (Auto) % Neut # (Auto) (1.4-6.5) K/uL Lymph # (Auto) (1.2-3.4) K/uL [place] # (Auto) (0.24-0.82) K/uL Eos # (Auto) (0-0.50) K/uL Baso # (Auto) (0-0.2) K/uL Immature Gran # (Auto) (0.00-0.02) K/uL PT (9.0-12.0) Seconds INR (0.9-1.1) APTT (21.0-31.0) Seconds PTT Ratio ABG pH ABG pCO2 ABG pO2 ABG HCO3 ABG O2 Saturation ABG Base Excess Ethan Test VBG pH 7.19 L (7.36-7.41) VBG pCO2 86 H (38-50) mmHg VBG pO2 19 mmHg VBG HCO3 33 mmol/L VBG O2 Saturation < 60.0 % VBG Base Excess 1.9 mEq/L Barometric Pressure Oxygen Given Sodium (136-145) mmol/L Potassium (3.5-5.1) mmol/L Chloride (98-107) mmol/L Carbon Dioxide (21-32) mmol/L Anion Gap (3-11) BUN (6-23) mg/dl Creatinine (0.6-1.2) mg/dl Est Cr Clr Drug Dosing ml/min Est GFR ( Amer) ml/min Est GFR (Non-Af Amer) ml/min BUN/Creatinine Ratio (10-20) Glucose (70-99(Fasting)) mg/dl Estimat Average Glucose Pending Hemoglobin A1c Pending Calcium (8.5-10.1) mg/dl Phosphorus (2.5-4.9) mg/dl Magnesium (1.7-2.4) mg/dl Total Bilirubin (0.2-1.0) mg/dl AST (13-39) U/L ALT (7-52) U/L Alkaline Phosphatase (34-104) U/L Troponin I High Sens 217.4 H* (0-14) pg/ml B-Natriuretic Peptide (0-100) pg/ml Total Protein (6.0-8.3) gm/dl Albumin (3.4-5.0) gm/dl Globulin (2.5-4.0) gm/dl Albumin/Globulin Ratio (0.9-2) Procalcitonin (0-0.5) ng/ml Nasal Screen MRSA (PCR) (Negative) Adenovirus (PCR) (NotDetected) B. pertussis DNA (PCR) (NotDetected) B.parapertussis DNA PCR (NotDetected) C. pneumoniae DNA (PCR) (NotDetected) Coronavirus OC43 (PCR) (NotDetected) Coronavirus HKU1 (PCR) (NotDetected) Coronavirus 229E (PCR) (NotDetected) SARS-CoV-2 (PCR) (NotDetected) Coronavirus NL63 (PCR) (NotDetected) Human Metapneumovir PCR (NotDetected) Influenza A (H3) PCR (NotDetected) Influenza Type B (PCR) (NotDetected) M. pneumoniae (PCR) (NotDetected) Parainfluenza 1 (PCR) (NotDetected) Parainfluenza 2 (PCR) (NotDetected) Parainfluenza 3 (PCR) (NotDetected) Parainfluenza 4 (PCR) (NotDetected) RSV (PCR) (NotDetected) Entero/Rhino (PCR) (NotDetected) 05/04/22 05/04/22 05/04/22 Range/Units 14:32 11:05 11:05 WBC (4.8-10.8) K/ul RBC (3.93-5.22) M/uL Hgb (12.0-16.0) g/dl Hct (34.1-44.9) % MCV (80.0-100.0) fL MCH (25.0-34.0) pg MCHC (32.0-36.0) g/dL RDW Std Deviation (36.4-46.3) fL RDW Coeff of Edin (11.5-14.5) % Plt Count (130-400) K/uL MPV (9.4-12.3) fL Immature Gran % (Auto) % Neut % (Auto) % Lymph % (Auto) % [place] % (Auto) % Eos % (Auto) % Baso % (Auto) % Neut # (Auto) (1.4-6.5) K/uL Lymph # (Auto) (1.2-3.4) K/uL [place] # (Auto) (0.24-0.82) K/uL Eos # (Auto) (0-0.50) K/uL Baso # (Auto) (0-0.2) K/uL Immature Gran # (Auto) (0.00-0.02) K/uL PT (9.0-12.0) Seconds INR (0.9-1.1) APTT (21.0-31.0) Seconds PTT Ratio ABG pH ABG pCO2 ABG pO2 ABG HCO3 ABG O2 Saturation ABG Base Excess Ethan Test VBG pH (7.36-7.41) VBG pCO2 (38-50) mmHg VBG pO2 mmHg VBG HCO3 mmol/L VBG O2 Saturation % VBG Base Excess mEq/L Barometric Pressure Oxygen Given Sodium (136-145) mmol/L Potassium (3.5-5.1) mmol/L Chloride (98-107) mmol/L Carbon Dioxide (21-32) mmol/L Anion Gap (3-11) BUN (6-23) mg/dl Creatinine (0.6-1.2) mg/dl Est Cr Clr Drug Dosing ml/min Est GFR ( Amer) ml/min Est GFR (Non-Af Amer) ml/min BUN/Creatinine Ratio (10-20) Glucose (70-99(Fasting)) mg/dl Estimat Average Glucose Hemoglobin A1c Calcium (8.5-10.1) mg/dl Phosphorus (2.5-4.9) mg/dl Magnesium (1.7-2.4) mg/dl Total Bilirubin (0.2-1.0) mg/dl AST (13-39) U/L ALT (7-52) U/L Alkaline Phosphatase (34-104) U/L Troponin I High Sens (0-14) pg/ml B-Natriuretic Peptide 1563 H (0-100) pg/ml Total Protein (6.0-8.3) gm/dl Albumin (3.4-5.0) gm/dl Globulin (2.5-4.0) gm/dl Albumin/Globulin Ratio (0.9-2) Procalcitonin 0.46 (0-0.5) ng/ml Nasal Screen MRSA (PCR) (Negative) Adenovirus (PCR) Not Detected (NotDetected) B. pertussis DNA (PCR) Not Detected (NotDetected) B.parapertussis DNA PCR Not Detected (NotDetected) C. pneumoniae DNA (PCR) Not Detected (NotDetected) Coronavirus OC43 (PCR) Not Detected (NotDetected) Coronavirus HKU1 (PCR) Not Detected (NotDetected) Coronavirus 229E (PCR) Not Detected (NotDetected) SARS-CoV-2 (PCR) Not Detected (NotDetected) Coronavirus NL63 (PCR) Not Detected (NotDetected) Human Metapneumovir PCR Not Detected (NotDetected) Influenza A (H3) PCR DETECTED A* (NotDetected) Influenza Type B (PCR) Not Detected (NotDetected) M. pneumoniae (PCR) Not Detected (NotDetected) Parainfluenza 1 (PCR) Not Detected (NotDetected) Parainfluenza 2 (PCR) Not Detected (NotDetected) Parainfluenza 3 (PCR) Not Detected (NotDetected) Parainfluenza 4 (PCR) Not Detected (NotDetected) RSV (PCR) DETECTED A* (NotDetected) Entero/Rhino (PCR) Not Detected (NotDetected) 05/04/22 05/04/22 05/04/22 Range/Units 11:05 11:05 11:05 WBC 11.96 H (4.8-10.8) K/ul RBC 3.66 L (3.93-5.22) M/uL Hgb 11.8 L (12.0-16.0) g/dl Hct 38.9 (34.1-44.9) % MCV 106.3 H (80.0-100.0) fL MCH 32.2 (25.0-34.0) pg MCHC 30.3 L (32.0-36.0) g/dL RDW Std Deviation 64.7 H (36.4-46.3) fL RDW Coeff of Edin 16.2 H (11.5-14.5) % Plt Count 153 (130-400) K/uL MPV 12.9 H (9.4-12.3) fL Immature Gran % (Auto) 1.4 % Neut % (Auto) 79.6 % Lymph % (Auto) 11.6 % Caldwell % (Auto) 6.6 % Eos % (Auto) 0.4 % Baso % (Auto) 0.4 % Neut # (Auto) 9.51 H (1.4-6.5) K/uL Lymph # (Auto) 1.39 (1.2-3.4) K/uL [place]dwell # (Auto) 0.79 (0.24-0.82) K/uL Eos # (Auto) 0.05 (0-0.50) K/uL Baso # (Auto) 0.05 (0-0.2) K/uL Immature Gran # (Auto) 0.17 H (0.00-0.02) K/uL PT 11.9 (9.0-12.0) Seconds INR 1.1 (0.9-1.1) APTT 23.1 (21.0-31.0) Seconds PTT Ratio 0.8 ABG pH ABG pCO2 ABG pO2 ABG HCO3 ABG O2 Saturation ABG Base Excess Ethan Test VBG pH (7.36-7.41) VBG pCO2 (38-50) mmHg VBG pO2 mmHg VBG HCO3 mmol/L VBG O2 Saturation % VBG Base Excess mEq/L Barometric Pressure Oxygen Given Sodium 140 (136-145) mmol/L Potassium 3.4 L (3.5-5.1) mmol/L Chloride 99 (98-107) mmol/L Carbon Dioxide 34 H (21-32) mmol/L Anion Gap 7 (3-11) BUN 28 H (6-23) mg/dl Creatinine 5.39 H* (0.6-1.2) mg/dl Est Cr Clr Drug Dosing 9.6 ml/min Est GFR ( Amer) 8.2 ml/min Est GFR (Non-Af Amer) 7.0 ml/min BUN/Creatinine Ratio 5.2 L (10-20) Glucose 152 H (70-99(Fasting)) mg/dl Estimat Average Glucose Hemoglobin A1c Calcium 9.5 (8.5-10.1) mg/dl Phosphorus (2.5-4.9) mg/dl Magnesium 2.2 (1.7-2.4) mg/dl Total Bilirubin 0.6 (0.2-1.0) mg/dl AST 17 (13-39) U/L ALT 22 (7-52) U/L Alkaline Phosphatase 62 (34-104) U/L Troponin I High Sens 227.6 H* (0-14) pg/ml B-Natriuretic Peptide (0-100) pg/ml Total Protein 5.6 L (6.0-8.3) gm/dl Albumin 2.8 L (3.4-5.0) gm/dl Globulin 2.8 (2.5-4.0) gm/dl Albumin/Globulin Ratio 1.0 (0.9-2) Procalcitonin (0-0.5) ng/ml Nasal Screen MRSA (PCR) (Negative) Adenovirus (PCR) (NotDetected) B. pertussis DNA (PCR) (NotDetected) B.parapertussis DNA PCR (NotDetected) C. pneumoniae DNA (PCR) (NotDetected) Coronavirus OC43 (PCR) (NotDetected) Coronavirus HKU1 (PCR) (NotDetected) Coronavirus 229E (PCR) (NotDetected) SARS-CoV-2 (PCR) (NotDetected) Coronavirus NL63 (PCR) (NotDetected) Human Metapneumovir PCR (NotDetected) Influenza A (H3) PCR (NotDetected) Influenza Type B (PCR) (NotDetected) M. pneumoniae (PCR) (NotDetected) Parainfluenza 1 (PCR) (NotDetected) Parainfluenza 2 (PCR) (NotDetected) Parainfluenza 3 (PCR) (NotDetected) Parainfluenza 4 (PCR) (NotDetected) RSV (PCR) (NotDetected) Entero/Rhino (PCR) (NotDetected) Medications Administered Current Inpatient Medications Acetaminophen (Acetaminophen 325 Mg Tab) 650 mg PO Q4H PRN PRN Reason: Pain or Fever Stop: 06/03/22 13:57 Al Hydrox/Mg Hydrox/Simethicone (Aluminum/Magnesium Susp 30 Ml Udc) 15 ml PO Q4H PRN PRN Reason: Dyspepsia Stop: 06/03/22 13:57 Aspirin (Aspirin 81 Mg Ectab) 162 mg PO DAILY [facility] Stop: 06/04/22 08:59 Levetiracetam 500 mg/ Sodium (Chloride) 105 mls @ 420 mls/hr IV MoWeFr@0900,1400,2100 [facility] Stop: 06/03/22 20:59 Last Infusion: 05/04/22 21:22 Dose: Infused Levetiracetam 500 mg/ Sodium (Chloride) 105 mls @ 420 mls/hr IV SuTuThSa@0900,2100 [facility] Stop: 06/04/22 08:59 Last Admin: 05/05/22 09:43 Dose: Not Given Ceftriaxone Sodium 2,000 mg/ (Dextrose) 70 mls @ 100 mls/hr IV Q24H [facility]; Protocol Stop: 05/11/22 19:59 Last Infusion: 05/04/22 21:22 Dose: Infused Doxycycline Hyclate 100 mg/ (Dextrose) 110 mls @ 50 mls/hr IV BID [facility] Stop: 05/11/22 20:59 Last Infusion: 05/04/22 22:53 Dose: Infused Sodium Chloride (Nss 1000ml) 1,000 mls @ 0 mls/hr IV .Q0M PRN PRN Reason: For Hemodialysis Use ONLY Stop: 05/05/22 13:34 Levalbuterol HCl (Levalbuterol Hcl 0.63 Mg/3 Ml Neb) 0.63 mg NEB Q6R PRN; Protocol PRN Reason: Shortness Of Breath Or Wheezing Stop: 06/03/22 18:59 Lidocaine/Prilocaine (Lidocaine/Prilocaine 2.5% Ea Crm) 1 each EXT MoWeFr@0900 [facility] Stop: 06/03/22 15:59 Last Admin: 05/04/22 19:07 Dose: Not Given Magnesium Hydroxide (Magnesium Hydroxide Susp 30 Ml Udc) 30 ml PO Q12H PRN PRN Reason: Constipation Stop: 06/03/22 13:57 Metoprolol Succinate (Metoprolol Succ 50mg Ext Rel Tab) 50 mg PO SuTuThSa@0900,2100 [facility] Stop: 06/04/22 08:59 Last Admin: 05/05/22 09:06 Dose: Not Given Metoprolol Succinate (Metoprolol Succ 50mg Ext Rel Tab) 50 mg PO MoWeFr@0900 [facility] Stop: 06/03/22 17:29 Last Admin: 05/04/22 21:08 Dose: 50 mg Miscellaneous (*Lanthanum*Order Awaiting Action) 1 each N/A QS [facility] Stop: 06/03/22 17:14 Last Admin: 05/05/22 01:16 Dose: Not Given Ondansetron HCl (Ondansetron Inj 2 Mg/Ml 2 Ml Vial) 4 mg IV Q6H PRN PRN Reason: Nausea Stop: 06/03/22 13:57 Oseltamivir Phosphate (Oseltamivir Phosphate Susp 30 Mg/5 Ml Udp) 30 mg PO [facility]; Protocol Stop: 05/09/22 20:59 Last Admin: 05/04/22 21:08 Dose: 30 mg Polyethylene Glycol (Polyethylene (Miralax) 17 Gm Pack) 17 gm PO DAILY PRN PRN Reason: Constipation Stop: 06/03/22 13:57 (1) CAD (coronary artery disease) Associated angina: without angina Coronary Disease-Associated Artery/Lesion type: unspecified vessel or lesion type [place] vs. transplanted heart: [place] heart Qualified Code(s): I25.10 - Atherosclerotic heart disease of [place] coronary artery without angina pectoris
[2022-05-05 10:37] LABS: Estimated Average Glucose 108 mg/dl; Hemoglobin A1C 5.4 % (4.5-5.6)
[2022-05-05] MEDS: ASPIRIN 81 MG ECTAB PO SCH (11:12)
[2022-05-05] MEDS: DOXYCYCLINE HYCLATE 100 MG in DEXTROSE 5% 100 ML IV SCH ×2 (12:37→22:01)
--- NOTE | 2022-05-05 14:37 | CT Scan Report ---
CT chest diagnostic wo con CLINICAL HISTORY: sob. ? Right lower lobe mass TECHNIQUE: Multidetector row helical CT of the chest was performed. Coronal and sagittal reformations were obtained. Automated dose lowering techniques and/or adjustment according to patient size were u tilized for this exam. CT DOSE: 494.15 mGy.cm Comparison: Comparison is made to CT chest 10/20/2021 and chest radiograph 05/05/2022 FINDINGS: Lungs and pleura: Bilateral pleural effusions are seen with bronchial wall thickening and atelectasis . No right lower lobe mass is seen. Heart and pericardium: Cardiomegaly is seen with biatrial enlargement. Vessels: Severe atherosclerotic disease is seen. There is dilation of the pulmonary trunk to 42 mm. Mediastinum and shweta: Subcentimeter lymph nodes are seen. Chest wall and lower neck: Small thyroid nodules are noted which do not require follow-up by ACR sydni cruz. Abdomen: A hiatal hernia is seen. Bones: Degenerative changes in the thoracic spine. IMPRESSION: 1. Bilateral pleural effusions with underlying atelectasis. No underlying mass lesion is seen. 2. Cardiomegaly and pulmonary hypertension. ACT 112: Negative or not required by law. Electronically signed by: Kole Hammond M.D. 05/05/2022 2:34 PM
[2022-05-05] MEDS ORDERED: STAT IV Infusion **Titration per Protocol STA (15:18)
[2022-05-05] MEDS ORDERED: DEXTROSE 50% 50 ML SYRINGE IV ONE (18:41)
[2022-05-05] MEDS: HEPARIN SOD (PORCINE) 1000 UNIT/ML IV SCH (18:50)
[2022-05-05] MEDS ORDERED: OSELTAMIVIR PHOSPHATE SUSP 30 MG/5 ML UDP PO SCH (21:00)
[2022-05-05] MEDS: cefTRIAXone SODIUM 2,000 MG in DEXTROSE 5% 50 ML IV SCH (22:02)
[2022-05-06] MEDS: *LANTHANUM*ORDER AWAITING ACTION SCH ×3 (00:59→15:23)
--- NOTE | 2022-05-06 05:17 | Electrocardiogram Report ---
Test Reason : Blood Pressure : / mmHG Vent. Rate : 100 BPM Atrial Rate : 122 BPM P-R Int : 000 ms QRS Dur : 088 ms QT Int : 330 ms P-R-T Axes : 000 -69 032 degrees QTc Int : 425 ms Atrial fibrillation Left axis deviation Anterior infarct (cited on or before 21-FEB-2022) Abnormal ECG When compared with ECG of 04-MAY-2022 11:15, Questionable change in initial forces of Septal leads Confirmed by Abrahan Villalobos ([id number]) on 05/06/2022 5:17:38 AM Referred By: REFERRED SELF Confirmed By:Abrahan Villalobos
[2022-05-06 05:21] LABS: BUN Creatinine Ratio 4.8 (10-20); Calcium 8.6 mg/dl (8.5-10.1); Est GFR (African American) 13.5 ml/min; Est GFR (Non-African American) 11.6 ml/min; Magnesium 1.9 mg/dl (1.7-2.4); Potassium 3.4 mmol/L (3.5-5.1)
[2022-05-06 05:43] LABS: Hematocrit (blood only) 35.5 % (34.1-44.9); Hemoglobin 11.5 g/dl (12.0-16.0); Mean Corpuscular Hemoglobin 32.6 pg (25.0-34.0); Mean Corpuscular Hgb Conc 32.4 g/dL (32.0-36.0); Mean Corpuscular Volume 100.6 fL (80.0-100.0); Mean Platelet Volume 13.1 fL (9.4-12.3); Platelet Count 132 K/uL (130-400); RDW Coefficient of Variation 16.2 % (11.5-14.5); RDW Standard Deviation 59.4 fL (36.4-46.3); Red Blood Count 3.53 M/uL (3.93-5.22); White Blood Count 16.84 K/ul (4.8-10.8)
[2022-05-06] MEDS ORDERED: AMIODARONE IV BOLUS & DRIP IV STA (07:15)
[2022-05-06] MEDS ORDERED: 0.2 MICRON FILTER SET 1 EACH IV STA (07:15)
[2022-05-06] MEDS ORDERED: STAT IV Infusion **Titration per Protocol STA (07:15)
[2022-05-06] MEDS ORDERED: AMIODARONE / D5W 150 MG/100 ML BAG IV STA (07:15)
[2022-05-06] MEDS ORDERED: AMIODARONE / D5W 360 MG/200 ML BAG IV ONE (07:25)
[2022-05-06] MEDS ORDERED: POTASSIUM PHOS 3 MMOL/1 ML INFUSION IV STA ×2 (08:01→08:03)
[2022-05-06] MEDS: DOXYCYCLINE HYCLATE 100 MG in DEXTROSE 5% 100 ML IV SCH (08:37)
[2022-05-06] MEDS ORDERED: POTASSIUM PHOSPHATE 15 MMOL in SODIUM CHLORIDE 0.9% 250 ML IV ONE (09:30)
--- NOTE | 2022-05-06 09:44 | Critical Care Progress Note ---
Date of Service May 06, 2022 Assessment & Plan (1) Seizure disorder: (2) End stage renal disease: (3) Acute on chronic respiratory failure with hypoxemia: (4) Influenza A: (5) Pulmonary edema: (6) Atrial fibrillation with rapid ventricular response: (7) CAD (coronary artery disease): (8) HTN (hypertension): (9) DM type 2 (diabetes mellitus, type 2): (10) Sleep apnea: Plan 76-year-old female presented to the hospital because of worsening shortness of breath and lethargy Past medical history: End-stage renal disease getting dialyzed Monday to-Monday, A. fib, coronary artery disease, dyslipidemia, diabetes type 2, [facility] ICU was consulted as patient was requiring BiPAP as well as his blood pressure was borderline low. 2D echo 05/05/22: EF 40-45%, PASP 75 mmHg, severe biatrial enlargement -- A. fib RVR Given the low blood pressure that the patient gets on and off We will start the patient on amiodarone drip. -- Acute on chronic hypoxic respiratory failure Likely secondary to pulmonary edema Patient also is positive for influenza A since 04/28/2022, she is also positive for RSV Patient is past the threshold to give oseltamivir Rest of respiratory bio fire is negative including COVID-19 PCR Procalcitonin 0.5 --Elevated troponin Likely type II IN --New onset CHF with pulmonary hypertension Pulmonary hypertension is a combination of type II and type III Cardiology recommendation -- End-stage renal disease On dialysis On [facility] -- Diabetes type 2 Continue with ICU hypoglycemia protocol --Dyslipidemia Continue with atorvastatin --History of hypertension Hold blood pressure medications --History of seizure disorder Continue with Keppra --Morbid obesity with [facility] Continue with BiPAP/CPAP nightly and as needed shortness of breath --Anxiety/depression Hold mirtazapine and trazodone for the time being --Gout On allopurinol at home --DNR/DNI --Prophylaxis VTE: IPC GI: None Lines: Peripheral Diet: Cardiac-renal Plan: Start the patient on feeds. Continue with amiodarone drip. If the blood pressure stays good then I would recommend metoprolol tartrate 25 mg. Consideration could be made regarding midodrine given the discrepancy of blood pressure readings. Will defer to primary team/nephrology Potassium and phosphorus being replaced Change Keppra to p.o. along with doxycycline to p.o. Patient can be downgraded to telemetry floor. Case was discussed with Dr. Child Please note the above document was generated using voice recognition software. It may contain grammatical, syntax or spelling errors.Any formal questions or concerns about the content, text or information contained within the body of this dictation should be directly addressed to the provider for clarification. Admission and Anticipated Discharge Date Admission Date: May 04, 2022 Subjective Patient seen and examined at bedside. No acute distress, no adverse events overnight. Patient got dialysis yesterday and did not need vasopressor support. It is very difficult to get blood pressure on the patient. Occasionally it is in the 150s and sometimes it does not read. She denies any chest pain, no headache, no nausea, no vomiting. She was saturating well on 4 L nasal cannula. Denied any chest pain, no abdominal pain. Shortness of breath is improved. Patient did get into A. fib with RVR. Review of Systems Review of Systems: All systems reviewed & are unremarkable except as noted in Subjective Physical Exam Physical Exam: Constitutional: No acute distress HEENT: EOMI, PERRLA Respiratory system: Decreased air entry bilaterally, no wheeze, no rhonchi, positive crackles bilateral lower lobes CVS: S1-S2 positive, no murmurs or gallops Abdomen: Soft, nontender, nondistended, positive bowel sounds x4, obese Extremities: +2 pulses bilaterally radialis/ dorsalis pedis, no cyanosis, +1 pitting edema bilateral lower extremity, left arm fistula Neuro: Awake alert oriented to self and place Psych: Normal mood and affect G/U: Positive [place] Skin: no rashes, warm and dry Lymphatic: no cervical or axillary lymphadenopathy Results & Data Results & Data ([facility]) Vital Signs (Past 12 Hours) Vital Signs Temp Pulse Resp BP Pulse Ox O2 Del Method 05/06/22 08:36 123 H 16 93 05/06/22 08:36 133/74 05/06/22 08:30 124 H 16 93 05/06/22 08:29 126 H 20 93 05/06/22 08:29 161/89 H 05/06/22 08:16 137 H 24 91 05/06/22 08:02 88/45 L 05/06/22 08:02 113 H 27 H 97 05/06/22 08:00 132 H 27 H 95 05/06/22 07:30 168 H 26 H 89 L 05/06/22 07:19 95/49 L 05/06/22 07:19 162 H 21 88 L 05/06/22 07:01 97/73 L 05/06/22 07:01 157 H 31 H 88 L 05/06/22 07:00 143 H 21 88 L 05/06/22 06:30 134 H 28 H 90 05/06/22 06:01 107/63 05/06/22 06:01 142 H 31 H 99 05/06/22 06:00 138 H 28 H 95 05/06/22 05:11 126 H 18 94 05/06/22 05:11 93/78 L 05/06/22 05:01 133 H 25 H 96 05/06/22 05:00 136 H 23 97 05/06/22 04:09 100/58 L 05/06/22 04:09 131 H 22 99 05/06/22 04:01 100/58 L 05/06/22 04:01 133 H 23 97 05/06/22 04:00 125 H 42 H 97 05/06/22 03:27 127 H 29 H 05/06/22 03:27 131/53 L 05/06/22 03:00 123 H 28 H 96 05/06/22 03:00 117/56 L 05/06/22 02:04 104/64 05/06/22 02:04 126 H 31 H 94 05/06/22 02:00 120 H 22 96 05/06/22 02:00 94/63 L 05/06/22 01:00 112 H 21 96 05/06/22 01:00 97/77 L 05/06/22 00:54 105/67 05/06/22 00:54 111 H 22 97 05/06/22 04:00 36.9 C 05/05/22 22:50 Room Air 05/06/22 00:00 113 H 05/06/22 00:12 88/55 L 05/06/22 00:12 112 H 17 98 05/06/22 00:08 110 H 19 98 05/06/22 00:00 115 H 19 97 05/05/22 23:29 117 H 14 98 05/05/22 23:29 94/72 L 05/05/22 23:28 109 H 21 89 L 05/05/22 23:28 78/59 L 05/05/22 23:00 113 H 18 97 05/05/22 23:00 86/62 L 05/05/22 22:00 116 H 25 H 100 05/05/22 22:00 107/62 05/05/22 21:55 108/76 05/05/22 21:55 117 H 19 05/06/22 00:16 36.9 C Laboratory Results 05/06/22 04:21 05/06/22 04:21 Coding Level of Care Code 54334 SUB INP/OBS CARE 3/50MIN Diagnoses Seizure disorder G40.909 End stage renal disease N18.6 Acute on chronic respiratory failure with hypoxemia J96.21 Influenza A J10.1 Pulmonary edema J81.1 Atrial fibrillation with rapid ventricular response I48.91 CAD (coronary artery disease) I25.10 Associated angina: without angina Coronary Disease-Associated Artery/Lesion type: unspecified vessel or lesion type [place] vs. transplanted heart: [place] heart HTN (hypertension) I10 Hypertension type: essential hypertension DM type 2 (diabetes mellitus, type 2) E11.9 Sleep apnea G47.30 (1) CAD (coronary artery disease) Associated angina: without angina Coronary Disease-Associated Artery/Lesion type: unspecified vessel or lesion type [place] vs. transplanted heart: [place] Qualified Code(s): I25.10 - Atherosclerotic heart disease of [place] coronary artery without angina pectoris (2) HTN (hypertension) Hypertension type: essential hypertension Qualified Code(s): I10 - Essential (primary) hypertension
[2022-05-06] MEDS ORDERED: METOPROLOL SUCC 50MG EXT REL TAB PO SCH (10:00)
[2022-05-06] MEDS: levETIRAcetam 500 MG TAB PO SCH ×3 (10:14→20:58)
[2022-05-06] MEDS: ASPIRIN 81 MG ECTAB PO SCH (10:15)
--- NOTE | 2022-05-06 12:04 | Hospitalist Progress Note ---
Date of Service May 06, 2022 Assessment & Plan (1) Cardiorenal syndrome with renal failure: (2) Influenza A: (3) Pulmonary edema: (4) Seizure disorder: (5) Atrial fibrillation with rapid ventricular response: (6) CAD (coronary artery disease): (7) Dyslipidemia: (8) DM type 2 (diabetes mellitus, type 2): (9) GERD (gastroesophageal reflux disease): Plan Cardiorenal syndrome with renal failure: Pulmonary edema: CXR: Cardiomegaly with evidence of congestive failure; pulmonary edema. Correlate clinically for evidence of a superimposed infectious/inflammatory pneumonitis; Small pleural effusions. Patient hypotensive in ED; 70/50 (55); albumin IV administered x1; SBP now 90 0.9 NSB 500 mL bolus x1 in ED Makes trace amt of urine. Per nursing facility patient makes small amounts of urine Last dialysis; no fluid removal was 05/03/22 Cardiology and nephrology consulted; discussed with Dr. Lanza. 05/05 - Need for dialysis. Patient hypotensive in ED yesterday, currently on BiPAP. Per nephrology patient may need ICU. Contacted registered client associate, plan for transfer to ICU for now. Patient is alert awake, tolerating BiPAP well. Feels weak but otherwise has no complaints at this time. 05/06 overnight patient in ICU developed A. fib with RVR. Amiodarone infusion was started. Currently laying in bed, in no acute distress. She is able to answer simple questions appropriately. Heart rate is still elevated but improved. Cardiology following. Procalcitonin negative Palliative consult placed as patient with multiple comorbid conditions and general goals of care conversation would be helpful. Influenza A: renal dose Tamiflu CAD: Atrial fibrillation with RVR: Not on any anticoagulation Metoprolol note different dosing on HD days; was on hold for hypotension Cardiology consulted History of seizure disorder: Takes Keppra; switched to IV as pt is NPO - will resume w/ diet Dyslipidemia: cont. Atorvastatin Gout: cont. Allopurinol Depression and Anxiety: Takes Mertazapime; hold for now Takes Trazadone (2 week trial to complete 05/09 per OP records); held on admission due to somnolence Disposition: PCP: Dr. Cerda CODE STATUS: DNR/DNI VTE prophylaxis: Teds and SCDs for now Admission and Anticipated Discharge Date Admission Date: May 04, 2022 Subjective Pt seen in follow-up for hypoxic respiratory failure, CHF, end-stage renal disease on dialysis Overnight patient in ICU, developed A. fib with RVR, was started on IV amiodarone drip Currently downgraded, and seen in room 233 First seen in the morning, patient had some nausea vomiting after taking her p.o. meds. Patient otherwise denies any complaints, currently on nasal cannula Denies chest pain, reports feeling weak Patient was again seen in the evening, after dialysis, reportedly feeling better Patient's daughter at the bedside Positive for RSV, and influenza, Procalcitonin 0.5 Review of Systems Review of Systems: All systems reviewed & are unremarkable except as noted in Subjective Physical Exam Physical Exam: General: Elderly female, obese, on suppl. O2 via [place] HEENT: head normocephalic, moist mucus membranes CV: irregularly irregular, tachycardic (-) M/G/R, (-) edema Resp: + crackles GI: Abdomen soft, +obese, NT/ND Musculoskeletal: moves extremities Neuro: Awake alert. Able to answer simple questions. Moves extremities. Skin: (-) rashes , (-) erythema. Results & Data Results & Data ([facility]) Vital Signs (Past 12 Hours) Vital Signs Temp Pulse Pulse Resp BP BP Pulse Ox 05/06/22 10:29 37.9 C H 134 H 24 116/78 99 05/06/22 08:36 123 H 16 93 05/06/22 08:36 133/74 05/06/22 08:30 124 H 16 93 05/06/22 08:29 126 H 20 93 05/06/22 08:29 161/89 H 05/06/22 08:16 137 H 24 91 05/06/22 08:02 88/45 L 05/06/22 08:02 113 H 27 H 97 05/06/22 08:00 132 H 27 H 95 05/06/22 07:30 168 H 26 H 89 L 05/06/22 07:19 95/49 L 05/06/22 07:19 162 H 21 88 L 05/06/22 07:01 97/73 L 05/06/22 07:01 157 H 31 H 88 L 05/06/22 07:00 143 H 21 88 L 05/06/22 06:30 134 H 28 H 90 05/06/22 06:01 107/63 05/06/22 06:01 142 H 31 H 99 05/06/22 06:00 138 H 28 H 95 05/06/22 05:11 126 H 18 94 05/06/22 05:11 93/78 L 05/06/22 05:01 133 H 25 H 96 05/06/22 05:00 136 H 23 97 05/06/22 04:09 100/58 L 05/06/22 04:09 131 H 22 99 05/06/22 04:01 100/58 L 05/06/22 04:01 133 H 23 97 05/06/22 04:00 125 H 42 H 97 05/06/22 03:27 127 H 29 H 05/06/22 03:27 131/53 L 05/06/22 03:00 123 H 28 H 96 05/06/22 03:00 117/56 L 05/06/22 02:04 104/64 05/06/22 02:04 126 H 31 H 94 05/06/22 02:00 120 H 22 96 05/06/22 02:00 94/63 L 05/06/22 01:00 112 H 21 96 05/06/22 01:00 97/77 L 05/06/22 00:54 105/67 05/06/22 00:54 111 H 22 97 05/06/22 04:00 36.9 C 05/06/22 00:12 88/55 L 05/06/22 00:12 112 H 17 98 05/06/22 00:08 110 H 19 98 05/06/22 00:16 36.9 C O2 Del Method O2 Flow Rate 05/06/22 10:29 Nasal Cannula 6 05/06/22 08:36 05/06/22 08:36 05/06/22 08:30 05/06/22 08:29 05/06/22 08:29 05/06/22 08:16 05/06/22 08:02 05/06/22 08:02 05/06/22 08:00 05/06/22 07:30 05/06/22 07:19 05/06/22 07:19 05/06/22 07:01 05/06/22 07:01 05/06/22 07:00 05/06/22 06:30 05/06/22 06:01 05/06/22 06:01 05/06/22 06:00 05/06/22 05:11 05/06/22 05:11 05/06/22 05:01 05/06/22 05:00 05/06/22 04:09 05/06/22 04:09 05/06/22 04:01 05/06/22 04:01 05/06/22 04:00 05/06/22 03:27 05/06/22 03:27 05/06/22 03:00 05/06/22 03:00 05/06/22 02:04 05/06/22 02:04 05/06/22 02:00 05/06/22 02:00 05/06/22 01:00 05/06/22 01:00 05/06/22 00:54 05/06/22 00:54 05/06/22 04:00 05/06/22 00:12 05/06/22 00:12 05/06/22 00:08 05/06/22 00:16 Laboratory Results 05/06/22 05/06/22 05/06/22 Range/Units 04:21 04:21 00:33 WBC 16.84 H (4.8-10.8) K/ul RBC 3.53 L (3.93-5.22) M/uL Hgb 11.5 L (12.0-16.0) g/dl Hct 35.5 (34.1-44.9) % MCV 100.6 H (80.0-100.0) fL MCH 32.6 (25.0-34.0) pg MCHC 32.4 (32.0-36.0) g/dL RDW Std Deviation 59.4 H (36.4-46.3) fL RDW Coeff of Edin 16.2 H (11.5-14.5) % Plt Count 132 (130-400) K/uL MPV 13.1 H (9.4-12.3) fL Sodium 136 (136-145) mmol/L Potassium 3.4 L (3.5-5.1) mmol/L Chloride 99 (98-107) mmol/L Carbon Dioxide 28 (21-32) mmol/L Anion Gap 9 (3-11) BUN 17 (6-23) mg/dl Creatinine 3.56 H D (0.6-1.2) mg/dl Est Cr Clr Drug Dosing 14.0 ml/min Est GFR ( Amer) 13.5 ml/min Est GFR (Non-Af Amer) 11.6 ml/min BUN/Creatinine Ratio 4.8 L (10-20) Glucose 80 (70-99(Fasting)) mg/dl POC Glucose 76 (70-99) mg/dl Calcium 8.6 (8.5-10.1) mg/dl Phosphorus 2.0 L D (2.5-4.9) mg/dl Magnesium 1.9 (1.7-2.4) mg/dl 05/05/22 05/05/22 05/05/22 Range/Units 19:17 18:39 18:35 WBC (4.8-10.8) K/ul RBC (3.93-5.22) M/uL Hgb (12.0-16.0) g/dl Hct (34.1-44.9) % MCV (80.0-100.0) fL MCH (25.0-34.0) pg MCHC (32.0-36.0) g/dL RDW Std Deviation (36.4-46.3) fL RDW Coeff of Edin (11.5-14.5) % Plt Count (130-400) K/uL MPV (9.4-12.3) fL Sodium (136-145) mmol/L Potassium (3.5-5.1) mmol/L Chloride (98-107) mmol/L Carbon Dioxide (21-32) mmol/L Anion Gap (3-11) BUN (6-23) mg/dl Creatinine (0.6-1.2) mg/dl Est Cr Clr Drug Dosing ml/min Est GFR ( Amer) ml/min Est GFR (Non-Af Amer) ml/min BUN/Creatinine Ratio (10-20) Glucose (70-99(Fasting)) mg/dl POC Glucose 82 67 L* 57 L* (70-99) mg/dl Calcium (8.5-10.1) mg/dl Phosphorus (2.5-4.9) mg/dl Magnesium (1.7-2.4) mg/dl Medications Administered Current Inpatient Medications Acetaminophen (Acetaminophen 325 Mg Tab) 650 mg PO Q4H PRN PRN Reason: Pain or Fever Stop: 06/03/22 13:57 Al Hydrox/Mg Hydrox/Simethicone (Aluminum/Magnesium Susp 30 Ml Udc) 15 ml PO Q4H PRN PRN Reason: Dyspepsia Stop: 06/03/22 13:57 Aspirin (Aspirin 81 Mg Ectab) 162 mg PO DAILY [facility] Stop: 06/04/22 08:59 Last Admin: 05/06/22 10:15 Dose: 162 mg Doxycycline Hyclate (Doxycycline Hyclate 100 Mg Cap) 100 mg PO BID [facility] Stop: 05/11/22 20:59 Ceftriaxone Sodium 2,000 mg/ (Dextrose) 70 mls @ 100 mls/hr IV Q24H [facility]; Protocol Stop: 05/11/22 19:59 Last Infusion: 05/05/22 22:45 Dose: Infused Norepinephrine Bitartrate (Levophed/D5w) 4 mg in 250 mls @ 15.619 mls/hr IV .Q16H1M [facility]; Protocol Stop: 06/04/22 15:29 Amiodarone HCl/Dextrose (Nexterone / D5w) 360 mg in 200 mls @ 33.333 mls/hr IV ONE ONE Stop: 05/06/22 13:24 Last Admin: 05/06/22 07:30 Dose: 1 mg/min, 33.3 mls/hr Amiodarone HCl/Dextrose (Nexterone / D5w) 360 mg in 200 mls @ 16.667 mls/hr IV .Q12H [facility] Stop: 06/05/22 13:14 Potassium Phosphate 15 mmol/ (Sodium Chloride) 255 mls @ 88 mls/hr IV TODAY@0930 ONE Stop: 05/06/22 12:23 Last Admin: 05/06/22 10:14 Dose: 88 mls/hr Levalbuterol HCl (Levalbuterol Hcl 0.63 Mg/3 Ml Neb) 0.63 mg NEB Q6R PRN; P rotocol PRN Reason: Shortness Of Breath Or Wheezing Stop: 06/03/22 18:59 Levetiracetam (Levetiracetam 500 Mg Tab) 500 mg PO MoWeFr@0900,1400,2100 [facility] Stop: 06/05/22 08:59 Last Admin: 05/06/22 10:14 Dose: 500 mg Levetiracetam (Levetiracetam 500 Mg Tab) 500 mg PO SuTuThSa@0900,2100 [facility] Stop: 06/06/22 08:59 Lidocaine/Prilocaine (Lidocaine/Prilocaine 2.5% Ea Crm) 1 each EXT MoWeFr@0900 [facility] Stop: 06/03/22 15:59 Last Admin: 05/04/22 19:07 Dose: Not Given Magnesium Hydroxide (Magnesium Hydroxide Susp 30 Ml Udc) 30 ml PO Q12H PRN PRN Reason: Constipation Stop: 06/03/22 13:57 Metoprolol Succinate (Metoprolol Succ 50mg Ext Rel Tab) 50 mg PO QAM [facility] Stop: 06/05/22 09:59 Miscellaneous (*Lanthanum*Order Awaiting Action) 1 each N/A QS [facility] Stop: 06/03/22 17:14 Last Admin: 05/06/22 09:49 Dose: Not Given Ondansetron HCl (Ondansetron Inj 2 Mg/Ml 2 Ml Vial) 4 mg IV Q6H PRN PRN Reason: Nausea Stop: 06/03/22 13:57 Polyethylene Glycol (Polyethylene (Miralax) 17 Gm Pack) 17 gm PO DAILY PRN PRN Reason: Constipation Stop: 06/03/22 13:57 (1) CAD (coronary artery disease) Associated angina: without angina Coronary Disease-Associated Artery/Lesion type: unspecified vessel or lesion type [place] vs. transplanted heart: [place] heart Qualified Code(s): I25.10 - Atherosclerotic heart disease of [place] coronary artery without angina pectoris
--- NOTE | 2022-05-06 12:44 | Cardiology Progress Note ---
Date of Service May 06, 2022 Assessment & Plan (1) Chronic atrial fibrillation: (2) Contraindication to anticoagulation therapy: (3) Coronary artery disease: (4) Hypertensive heart disease: (5) Pulmonary hypertension: (6) Sleep apnea: (7) Chronic right heart failure: (8) Cerebral amyloid angiopathy: (9) Non-traumatic intracerebral ventricular hemorrhage: (10) End stage renal disease: Plan Chronic atrial fibrillation. -Elevated ventricular rates overnight with hypotension -Metoprolol had been held yesterday -Overnight she was started on IV amiodarone to aid with HR's in setting of hypotension -this morning, HR's remain elevated, but she is asymptomatic. BP also improved. -resume metoprolol 50 mg every AM (home dose is 50 mg BID per notes) -Patient with contraindications to chronic anticoagulation - numerous falls, cerebellar amyloid angiopathy, non-traumatic right posterior nontraumatic intracerebral ventricular hemorrhage complicated by seizure in March 2016 Mildly elevated troponin. Patient with known chronic coronary artery disease with prior LAD intervention. Diagnostic cardiac catheterization last on June 06, 2014 revealed moderate nonobstructive CAD with vessels were notable quite large and tortuous, consistent with her history of hypertension. Asymptomatic. Continue medical management. CHF exacerbation with mildly reduced LVEF. Multifactorial in etiology. + Hypoalbuminemia. Chronic diastolic/right heart failure. Moderate to severe tricuspid regurgitation with moderate pulmonary hypertension. Untreated sleep apnea. Volume status controlled via hemodialysis. Abnormal CXR with b/l pleural effusions - -volume to be addressed during dialysis Cerebrovascular accident in September 2019, in the setting of chronic atrial fibrillation, moderate bilateral carotid vascular disease. Hypertensive heart disease with preserved LV systolic function by prior echocardiography. Dyslipidemia with LDL goal less than 70 mg/dL. Continue atorvastatin 80 mg/day. Monitor HR's after morning dose of metoprolol. Continue IV amio for now for rate control, but will likely transition back to home dose metoprolol and titrate as needed. Case discussed with Dr. Conley. Will follow. Admission and Anticipated Discharge Date Admission Date: May 04, 2022 Supervising Physician Co-Signing Physician Notes 76-year-old female admitted with acute on chronic respiratory failure with hypoxia and hypercapnea. BiPAP discontinued. Currently receiving dialysis treatment. Blood pressure remains labile. Denies chest pain or shortness of breath. Anxious for discharge. PE: Gen: awake and alert. Heart: irregular rhythm, tachycardic. Lungs: crackles at bases B/L. poor effort. Ext: mild edema. A/P: Agree with above PA-C history, physical exam, assessment and plan. Patient appears volume overloaded. Planning 1.6 L removal on dialysis today. Blood pressure improved. Will discontinue IV amiodarone. Titrate metoprolol succinate to 50 mg twice daily (outpatient dose). Subjective Patient resting comfortably this morning at time of evaluation. Apparently overnight has increased SOB, nausea and vomiting. HR's increased to 130-150's and she was hypotensive. Metoprolol had to be placed on hold yesterday, likely contributing to her elevated ventricular rates. Due to afib RVR, she was started on IV amiodarone for rate control. Currently patient reports feeling ok. Denies chest pain, palpitations or worsening SOB. Review of systems may be limited. Review of Systems Review of Systems: All systems reviewed & are unremarkable except as noted in HPI & below Physical Exam Physical Exam: General: A&Ox3. NAD. On BiPAP. HENT: Normocephalic. Atraumatic. Mouth: Dry. Eyes: PER. Conjunctiva pink, no scleral icterus. Neck: No JVD. Heart: Irregularly irregular at 100 bpm. Soft apical holosystolic murmur. No rub. PMI is not displaced. No RV heave. Lungs: Diminished. Clear anteriorly. No wheeze. Abdomen: +BS. Soft. Nontender. No masses or organomegaly. No abdominal bruits. Extremities: Mild edema. Lymphedematous changes. Lower extremity wounds. No clubbing. No cyanosis. Left upper extremity fistula. Distal lower extremity pulses were not appreciated. Results & Data ([facility]) Vital Signs (Past 12 Hours) Vital Signs Temp Pulse Pulse Resp BP BP Pulse Ox 05/06/22 09:00 121 H 05/06/22 09:00 05/06/22 12:08 36.7 C 121 H 20 133/73 99 05/06/22 10:29 37.9 C H 134 H 24 116/78 99 05/06/22 08:36 123 H 16 93 05/06/22 08:36 133/74 05/06/22 08:30 124 H 16 93 05/06/22 08:29 126 H 20 93 05/06/22 08:29 161/89 H 05/06/22 08:16 137 H 24 91 05/06/22 08:02 88/45 L 05/06/22 08:02 113 H 27 H 97 05/06/22 08:00 132 H 27 H 95 05/06/22 07:30 168 H 26 H 89 L 05/06/22 07:19 95/49 L 05/06/22 07:19 162 H 21 88 L 05/06/22 07:01 97/73 L 05/06/22 07:01 157 H 31 H 88 L 05/06/22 07:00 143 H 21 88 L 05/06/22 06:30 134 H 28 H 90 05/06/22 06:01 107/63 05/06/22 06:01 142 H 31 H 99 05/06/22 06:00 138 H 28 H 95 05/06/22 05:11 126 H 18 94 05/06/22 05:11 93/78 L 05/06/22 05:01 133 H 25 H 96 05/06/22 05:00 136 H 23 97 05/06/22 04:09 100/58 L 05/06/22 04:09 131 H 22 99 05/06/22 04:01 100/58 L 05/06/22 04:01 133 H 23 97 05/06/22 04:00 125 H 42 H 97 05/06/22 03:27 127 H 29 H 05/06/22 03:27 131/53 L 05/06/22 03:00 123 H 28 H 96 05/06/22 03:00 117/56 L 05/06/22 02:04 104/64 05/06/22 02:04 126 H 31 H 94 05/06/22 02:00 120 H 22 96 05/06/22 02:00 94/63 L 05/06/22 01:00 112 H 21 96 05/06/22 01:00 97/77 L 05/06/22 00:54 105/67 05/06/22 00:54 111 H 22 97 05/06/22 04:00 36.9 C O2 Del Method O2 Flow Rate 05/06/22 09:00 05/06/22 09:00 Nasal Cannula 6 05/06/22 12:08 Nasal Cannula 6 05/06/22 10:29 Nasal Cannula 6 05/06/22 08:36 05/06/22 08:36 05/06/22 08:30 05/06/22 08:29 05/06/22 08:29 05/06/22 08:16 05/06/22 08:02 05/06/22 08:02 05/06/22 08:00 05/06/22 07:30 05/06/22 07:19 05/06/22 07:19 05/06/22 07:01 05/06/22 07:01 05/06/22 07:00 05/06/22 06:30 05/06/22 06:01 05/06/22 06:01 05/06/22 06:00 05/06/22 05:11 05/06/22 05:11 05/06/22 05:01 05/06/22 05:00 05/06/22 04:09 05/06/22 04:09 05/06/22 04:01 05/06/22 04:01 05/06/22 04:00 05/06/22 03:27 05/06/22 03:27 05/06/22 03:00 05/06/22 03:00 05/06/22 02:04 05/06/22 02:04 05/06/22 02:00 05/06/22 02:00 05/06/22 01:00 05/06/22 01:00 05/06/22 00:54 05/06/22 00:54 05/06/22 04:00 Laboratory Results CBC 05/06/22 Range/Units 04:21 WBC 16.84 H (4.8-10.8) K/ul RBC 3.53 L (3.93-5.22) M/uL Hgb 11.5 L (12.0-16.0) g/dl Hct 35.5 (34.1-44.9) % Plt Count 132 (130-400) K/uL Comprehensive Metabolic Panel 05/06/22 Range/Units 04:21 Sodium 136 (136-145) mmol/L Potassium 3.4 L (3.5-5.1) mmol/L Chloride 99 (98-107) mmol/L Carbon Dioxide 28 (21-32) mmol/L BUN 17 (6-23) mg/dl Creatinine 3.56 H D (0.6-1.2) mg/dl Glucose 80 (70-99(Fasting)) mg/dl Calcium 8.6 (8.5-10.1) mg/dl Intake and Output 05/05/22 05/06/22 05/06/22 22:59 06:59 14:59 Intake Total 175 / 395 110 / 395 210 / 210 Output Total 0 / 0 0 / 0 11 / 11 Balance 175 / 395 110 / 395 199 / 199 Intake: IV 175 / 395 110 / 395 210 / 210 Amiodarone / D5w 150 mg In 100 100 / 100 ml @ 600 mls/hr IV NOW [facility] Rx#: [id number] Doxycycline Hyclate 100 mg In 110 / 220 110 / 110 Dextrose 5% 100 ml @ 50 mls/hr IV BID [facility] Rx#:[id number] cefTRIAXone SODIUM 2,000 mg In 70 / 70 Dextrose 5% 50 ml @ 100 mls/hr IV Q24H [facility] Rx#:[id number] levETIRAcetam 500 mg In 0.9 % 105 / 105 Sodium Chloride 100 ml @ 420 mls/hr IV SuTuThSa@0900,2100 [facility] Rx#:[id number] Oral 0 / 0 Output: Urine Amount (Catheter) 0 / 0 0 / 0 10 10 Mejia/Indwelling 0 / 0 0 / 0 # Bowel Movements Other: Hemodialysis Ultrafiltration 2,000 Amount Weight 88 kg 87.543 kg 87.543 kg Weight Measurement Method Built in [facility] Built in [facility] Patient Weight 05/07/22 06:59 Weight 87.543 kg Diagnostic Findings Telemetry reviewed: afib with RVR rates ranging 110-150s Chest Ct report reviewed: IMPRESSION: 1. Bilateral pleural effusions with underlying atelectasis. No underlying mass lesion is seen. 2. Cardiomegaly and pulmonary hypertension. Medications Administered Current Inpatient Medications Acetaminophen (Acetaminophen 325 Mg Tab) 650 mg PO Q4H PRN PRN Reason: Pain or Fever Stop: 06/03/22 13:57 Al Hydrox/Mg Hydrox/Simethicone (Aluminum/Magnesium Susp 30 Ml Udc) 15 ml PO Q4H PRN PRN Reason: Dyspepsia Stop: 06/03/22 13:57 Aspirin (Aspirin 81 Mg Ectab) 162 mg PO DAILY [facility] Stop: 06/04/22 08:59 Last Admin: 05/06/22 10:15 Dose: 162 mg Doxycycline Hyclate (Doxycycline Hyclate 100 Mg Cap) 100 mg PO BID [facility] Stop: 05/11/22 20:59 Ceftriaxone Sodium 2,000 mg/ (Dextrose) 70 mls @ 100 mls/hr IV Q24H [facility]; Protocol Stop: 05/11/22 19:59 Last Infusion: 05/05/22 22:45 Dose: Infused Norepinephrine Bitartrate (Levophed/D5w) 4 mg in 250 mls @ 15.619 mls/hr IV .Q16H1M [facility]; Protocol Stop: 06/04/22 15:29 Amiodarone HCl/Dextrose (Nexterone / D5w) 360 mg in 200 mls @ 33.333 mls/hr IV ONE ONE Stop: 05/06/22 13:24 Last Admin: 05/06/22 07:30 Dose: 1 mg/min, 33.3 mls/hr Amiodarone HCl/Dextrose (Nexterone / D5w) 360 mg in 200 mls @ 16.667 mls/hr IV .Q12H [facility] Stop: 06/05/22 13:14 Levalbuterol HCl (Levalbuterol Hcl 0.63 Mg/3 Ml Neb) 0.63 mg NEB Q6R PRN; Protocol PRN Reason: Shortness Of Breath Or Wheezing Stop: 06/03/22 18:59 Levetiracetam (Levetiracetam 500 Mg Tab) 500 mg PO MoWeFr@0900,1400,2100 [facility] Stop: 06/05/22 08:59 Last Admin: 05/06/22 10:14 Dose: 500 mg Levetiracetam (Levetiracetam 500 Mg Tab) 500 mg PO SuTuThSa@0900,2100 [facility] Stop: 06/06/22 08:59 Lidocaine/Prilocaine (Lidocaine/Prilocaine 2.5% Ea Crm) 1 each EXT MoWeFr@0900 [facility] Stop: 06/03/22 15:59 Last Admin: 05/04/22 19:07 Dose: Not Given Magnesium Hydroxide (Magnesium Hydroxide Susp 30 Ml Udc) 30 ml PO Q12H PRN PRN Reason: Constipation Stop: 06/03/22 13:57 Metoprolol Succinate (Metoprolol Succ 50mg Ext Rel Tab) 50 mg PO QAM [facility] Stop: 06/05/22 09:59 Last Admin: 05/06/22 12:04 Dose: 50 mg Miscellaneous (*Lanthanum*Order Awaiting Action) 1 each N/A QS [facility] Stop: 06/03/22 17:14 Last Admin: 05/06/22 09:49 Dose: Not Given Ondansetron HCl (Ondansetron Inj 2 Mg/Ml 2 Ml Vial) 4 mg IV Q6H PRN PRN Reason: Nausea Stop: 06/03/22 13:57 Polyethylene Glycol (Polyethylene (Miralax) 17 Gm Pack) 17 gm PO DAILY PRN PRN Reason: Constipation Stop: 06/03/22 13:57
--- NOTE | 2022-05-06 12:47 | Palliative Care Progress Note ---
Date of Service May 06, 2022 Assessment & Plan (1) Palliative care encounter: Plan: 76yo chronically critically ill pt with multiple advancing comorbidities and an undefined restrictive lung disease in context of cardiorenal failure on HD, +flu A and recent RSV. Is covid neg this admission. recent falls, sustained fx, went to SNF in mar 2022. Remains on Hd, tolerating well. Did well overnight with BiPAP, may need NIV at dc (2) Acute on chronic respiratory failure with hypoxemia: Plan: Continue BiPAP with sleep and naps consider NIV at bedtime + naps at SNF consider clarifying her restrictive lung disease on OP basis (3) Goals of care, counseling/discussion: Plan: I had a tentative plan for family meeting with dtr and specialists today, however since patient is downgraded from ICU to med surg and is stable, Dr. Child and I agreed we would wait to see how she does thru the weekend before revisiting the need for a family meeting. i tried to call the dtr but her "voicemail is full/not accepting new messages." I met with Mahsa at bedside, HD Nurse Nahomi also present. Reviewed events of past 24 hr and her improvement. Mahsa states "I know, I feel much better but I can't remember anything that happened really in past few days." Reassured this is normal for what she was struggling with and her improvement now suggests the treatments are helping. We reviewed an overall concern that her numerous chronic issues are generally chronically progressing, which over time contributes to a "dwindling" of sorts, and may reach a time where tolerating some therapies or medications may become challenging. we spoke about how it would be important to get a sense of what matters the most to her when things tart to worsen, so that a plan can be in place to manage those changes as they evolve. She was in agreement but noted she needs time to think about this some more. We agreed to follow up after the weekend. She was very happy with this plan. (4) Carotid stenosis, bilateral: (5) End stage renal disease: (6) Falls frequently: (7) Sleep apnea: (8) Cardiorenal syndrome with renal failure: Plan Mahsa has been in a dwindling mode for a few months but was still able to tolerate her therapies and has a reasonable QOL to her liking. She has been downgraded from ICU and her sacral tissue injury is not worse today, so it is not a Mata ulcer. There is no urgent need for a family meeting today, but one to address more broader strokes for a plan of care as her progressive decline continues is not unreasonable. This may be done next week after a few more days of therapy are completed to allow us a better sense of where her new baseline may be emerging. I have discussed with primary team and notified nursing. I tried to call the daughter but it went to voicemail and there was no option to leave a message because "mailbox was full, not accepting new messages." Will follow up Monday. I have updated and discussed above with nursing, HD nursing, primary team and nephrology/Dr Lanza. Rachell Swain DNP Clinical Director, Palliative Medicine Admission and Anticipated Discharge Date Admission Date: May 04, 2022 Subjective wound has been reassessed and not progressing, does appear a little less erythematous with dressing. Remained stable in ICU, now transferred to the floor Mahsa is awake, alert and feeling much better. Color much improved. She is bright and alert, smiling and quite interactive. Currently using 4lpm NC, biPAP not needed in daytime admits she does not wear it at night/for sleep outside of hospital she tried to take some PO earlier but promptly threw up. now on GI rest. chewing some mint gum to settle her stomach but admits she is hungry and would like to eat. Tolerating HD at time of my visit, her HD nurse Nahomi is also present. No need for BP support, has needed amio for HR and s perhaps BP irregularities are related to irreg HR more so than HD. no SOB, chest pain or dyspnea no visual changes or headache no reflux, +feels hungry She does not recall much of the past 1-2 days Review of Systems Review of Systems: All systems reviewed & are unremarkable except as noted in Subjective Physical Exam Constitutional: well nourished and + ill appearing Eyes: PERRL, conjunctivae normal, anicteric sclerae ENMT: Mouth: + dry oral mucous membranes and + dentures Neck: trachea midline, no thyromegaly Respiratory: normal respiratory effort Auscultation: + diminished lung sounds Cardiovascular: Rate/Rhythm: + irregularly irregular Heart Sounds: + murmur (holosystolic) Chest (Breasts): Additional Comments: anterior chest wall tenderness left upper chest wall to mid sternal regio, to palpation. no obvious mass of lesion noted, no warmth, erythema or skin abnormality noted. Gastrointestinal (Abdomen): Inspection/Auscultation: normal bowel sounds Percussion/Palpation: abdomen soft and + hernia Musculoskeletal: generalized weakness Skin: skin pale and cool to touch BUE, weeping edema LUE. BLE with less edema, right great toe with avulsion injury/old blood. Bilat heels with red blanching, +foam dressings applied. +unstageable tissue injury at sacral region, irregularly shaped, less erythematous than yesterday on today's assessment with wound care/please see the photo Neurologic: Pt was AAOx3 (year is 2021, knew it was winter/after bessy, less sure of exact date) Psychiatric: A+Ox3, euthymic affect Eye Contact: good eye contact Thought Process: clear/coherent thought process Cognition: language grossly intact Insight: good insight Results & Data ([facility]) Vital Signs (Past 12 Hours) Vital Signs Temp Pulse Pulse Resp BP BP Pulse Ox 05/06/22 09:00 121 H 05/06/22 09:00 05/06/22 12:08 36.7 C 121 H 20 133/73 99 05/06/22 10:29 37.9 C H 134 H 24 116/78 99 05/06/22 08:36 123 H 16 93 05/06/22 08:36 133/74 05/06/22 08:30 124 H 16 93 05/06/22 08:29 126 H 20 93 05/06/22 08:29 161/89 H 05/06/22 08:16 137 H 24 91 05/06/22 08:02 88/45 L 05/06/22 08:02 113 H 27 H 97 05/06/22 08:00 132 H 27 H 95 05/06/22 07:30 168 H 26 H 89 L 05/06/22 07:19 95/49 L 05/06/22 07:19 162 H 21 88 L 05/06/22 07:01 97/73 L 05/06/22 07:01 157 H 31 H 88 L 05/06/22 07:00 143 H 21 88 L 05/06/22 06:30 134 H 28 H 90 05/06/22 06:01 107/63 05/06/22 06:01 142 H 31 H 99 05/06/22 06:00 138 H 28 H 95 05/06/22 05:11 126 H 18 94 05/06/22 05:11 93/78 L 05/06/22 05:01 133 H 25 H 96 05/06/22 05:00 136 H 23 97 05/06/22 04:09 100/58 L 05/06/22 04:09 131 H 22 99 05/06/22 04:01 100/58 L 05/06/22 04:01 133 H 23 97 05/06/22 04:00 125 H 42 H 97 05/06/22 03:27 127 H 29 H 05/06/22 03:27 131/53 L 05/06/22 03:00 123 H 28 H 96 05/06/22 03:00 117/56 L 05/06/22 02:04 104/64 05/06/22 02:04 126 H 31 H 94 05/06/22 02:00 120 H 22 96 05/06/22 02:00 94/63 L 05/06/22 01:00 112 H 21 96 05/06/22 01:00 97/77 L 05/06/22 00:54 105/67 05/06/22 00:54 111 H 22 97 05/06/22 04:00 36.9 C O2 Del Method O2 Flow Rate 05/06/22 09:00 05/06/22 09:00 Nasal Cannula 6 05/06/22 12:08 Nasal Cannula 6 05/06/22 10:29 Nasal Cannula 6 05/06/22 08:36 05/06/22 08:36 05/06/22 08:30 05/06/22 08:29 05/06/22 08:29 05/06/22 08:16 05/06/22 08:02 05/06/22 08:02 05/06/22 08:00 05/06/22 07:30 05/06/22 07:19 05/06/22 07:19 05/06/22 07:01 05/06/22 07:01 05/06/22 07:00 05/06/22 06:30 05/06/22 06:01 05/06/22 06:01 05/06/22 06:00 05/06/22 05:11 05/06/22 05:11 05/06/22 05:01 05/06/22 05:00 05/06/22 04:09 05/06/22 04:09 05/06/22 04:01 05/06/22 04:01 05/06/22 04:00 05/06/22 03:27 05/06/22 03:27 05/06/22 03:00 05/06/22 03:00 05/06/22 02:04 05/06/22 02:04 05/06/22 02:00 05/06/22 02:00 05/06/22 01:00 05/06/22 01:00 05/06/22 00:54 05/06/22 00:54 05/06/22 04:00 PG Care Time/CCT Total # of Minutes Spent Total Time Spent: 48 Total Time Spent with Patient: Total time spent is greater than 50% in coordination of care (as documented) at patient's floor/unit and/or counseling patient: [place] [address] SUB INP/OBS CARE 3/50MIN Patient Type Established History Detailed Exam Detailed Medical Decision Making Moderate Complexity Diagnoses Palliative care encounter Z51.5 Acute on chronic respiratory failure with hypoxemia J96.21 Goals of care, counseling/discussion Z71.89 Carotid stenosis, bilateral I65.23 End stage renal disease N18.6 Falls frequently R29.6 Sleep apnea G47.30 Cardiorenal syndrome with renal failure I13.10
[2022-05-06] MEDS: AMIODARONE / D5W 360 MG/200 ML BAG IV SCH ×2 (14:07→14:18)
--- NOTE | 2022-05-06 15:37 | Dialysis Progress Note ---
Date of Service May 06, 2022 Assessment & Plan (1) ESRD (end stage renal disease) on dialysis: Plan: -HD again today will attempt UF to improve resp status; pressors may be needed to maintain blood pressure for this -next HD likely 05/09 or as needs dictate; anticipate eval for daily dialysis next few days, to optimize volume status -phos is 2 today >> no indication for lanthanum today (and it is unfortunately ); can look at giving her crushable binder on formulary and will d/w pharmacy; any binder that we can sprinkle in pudding is fine -no further phos repletion w/o d/w nephro -checking phos daily (2) Respiratory failure with hypoxia and hypercapnia: Plan: multifactorial; appreciate critical care and cardiology evals. BL pl effusions on CT plus al OL sgns; new large WMA and dminished EF to 40% w/ PASP 75/stiff IVC -UF as aggressively as she will tolerate w/ HD (3) Goals of care, counseling/discussion: Plan: pt has had very challenging 2 mos clinically and is debilitated from over a month of serial/ongoing respiratory infections; agrees to pressors but not to intubation; does agree to cardiac meds -appreciate palliative and other teams' work at goals of care w/ her Admission and Anticipated Discharge Date Admission Date: May 04, 2022 Subjective tolerated 2L UF w/o pressor yesterday; moved out of unit; this am had AF w/ RVR > on amio gtt now; on 6L most of day but to 4L by start of tx and 2L on way in. took pills w/ liquid this am but spat them up > pt usually takes crushed pills in pudidng. arms still seeping. Physical Exam Constitutional: well developed, well nourished, + frail appearing and cooperative; no acute distress Eyes: EOM intact bilaterally ENMT: Ears: no external ear abnormality Nose: no external nose abnormality Mouth: + dry oral mucous membranes Neck: no nuchal rigidity Respiratory: normal respiratory effort (on 02NC) Auscultation: + diminished lung sounds Cardiovascular: Rate/Rhythm: + tachycardic and + irregularly irregular Extremities: + AV fistula (LUE + t/b); no edema (BLE) Gastrointestinal (Abdomen): Inspection/Auscultation: normal bowel sounds Percussion/Palpation: abdomen soft; abdomen nontender Musculoskeletal: Extremities: strength 5/5 throughout Skin: no rashes, warm and dry Neurologic: schmidt, limited speech, generalized weakness Psychiatric: Orientation: oriented to person, oriented to place and cooperative Results & Data ([facility]) Vital Signs (Past 12 Hours) Vital Signs Temp Pulse Pulse Pulse Resp BP BP 05/06/22 15:05 106 H 05/06/22 14:30 107 H 126/84 05/06/22 15:00 113 H 128/84 05/06/22 14:00 106 H 124/75 05/06/22 13:49 113 H 156/92 H 05/06/22 13:49 36.4 C L 112 H 05/06/22 09:00 121 H 05/06/22 09:00 05/06/22 12:08 36.7 C 121 H 20 133/73 05/06/22 10:29 37.9 C H 134 H 24 116/78 05/06/22 08:36 123 H 16 05/06/22 08:36 133/74 05/06/22 08:30 124 H 16 05/06/22 08:29 126 H 20 05/06/22 08:29 161/89 H 05/06/22 08:16 137 H 24 05/06/22 08:02 88/45 L 05/06/22 08:02 113 H 27 H 05/06/22 08:00 132 H 27 H 05/06/22 07:30 168 H 26 H 05/06/22 07:19 95/49 L 05/06/22 07:19 162 H 21 05/06/22 07:01 97/73 L 05/06/22 07:01 157 H 31 H 05/06/22 07:00 143 H 21 05/06/22 06:30 134 H 28 H 05/06/22 06:01 107/63 05/06/22 06:01 142 H 31 H 05/06/22 06:00 138 H 28 H 05/06/22 05:11 126 H 18 05/06/22 05:11 93/78 L 05/06/22 05:01 133 H 25 H 05/06/22 05:00 136 H 23 05/06/22 04:09 100/58 L 01/06/23 04:09 131 H 22 05/06/22 04:01 100/58 L 05/06/22 04:01 133 H 23 05/06/22 04:00 125 H 42 H 05/06/22 04:00 36.9 C Pulse Ox O2 Del Method O2 Flow Rate 05/06/22 15:05 05/06/22 14:30 05/06/22 15:00 05/06/22 14:00 05/06/22 13:49 05/06/22 13:49 05/06/22 09:00 05/06/22 09:00 Nasal Cannula 6 05/06/22 12:08 99 Nasal Cannula 6 05/06/22 10:29 99 Nasal Cannula 6 05/06/22 08:36 93 05/06/22 08:36 05/06/22 08:30 93 05/06/22 08:29 93 05/06/22 08:29 05/06/22 08:16 91 05/06/22 08:02 05/06/22 08:02 97 05/06/22 08:00 95 05/06/22 07:30 89 L 05/06/22 07:19 05/06/22 07:19 88 L 05/06/22 07:01 05/06/22 07:01 88 L 05/06/22 07:00 88 L 05/06/22 06:30 90 05/06/22 06:01 05/06/22 06:01 99 05/06/22 06:00 95 05/06/22 05:11 94 05/06/22 05:11 05/06/22 05:01 96 05/06/22 05:00 97 05/06/22 04:09 05/06/22 04:09 99 05/06/22 04:01 05/06/22 04:01 97 05/06/22 04:00 97 05/06/22 04:00 Laboratory Results 05/06/22 04:21 05/06/22 04:21
[2022-05-06 17:26] LABS: Appearance Urine Turbid (Clear); Bacteria Urine Automated 1+ (Negative); Bilirubin Urine Negative (Negative); Blood Urine 3+ (Negative); Color Urine Orange; Glucose Urine UA Negative (Negative); Ketones Urine Negative (Negative); Leukocyte Esterase Urine 3+ (Negative); Nitrite Urine Negative (Negative); Protein Urine 4+ (Negative); Specific Gravity Urine 1.025 (1.000-1.030); Urobilinogen Urine Negative (Negative); WBC Urine Automated >30 /hpf (0-5); pH Urine 8.5 (4.5-7.5)
[2022-05-06 17:45] LABS: RBC Urine Automated >30 /hpf (0-4)
[2022-05-06] MEDS: LIDOCAINE/PRILOCAINE 2.5% EA CRM EXT SCH (19:26)
[2022-05-06] MEDS: NOREPINEPHRINE/D5W 4 MG/250 ML PLCT IV SCH ×2 (19:26→19:27)
[2022-05-06] MEDS: HEPARIN SOD (PORCINE) 1000 UNIT/ML IV SCH (19:26)
[2022-05-06] MEDS: METOPROLOL SUCC 50MG EXT REL TAB PO SCH (20:58)
[2022-05-06] MEDS: cefTRIAXone SODIUM 2,000 MG in DEXTROSE 5% 50 ML IV SCH (20:58)
[2022-05-06] MEDS: DOXYCYCLINE HYCLATE 100 MG CAP PO SCH (20:58)
[2022-05-06] MEDS ORDERED: OSELTAMIVIR PHOSPHATE SUSP 30 MG/5 ML UDP PO SCH (21:00)
[2022-05-06] MEDS: ONDANSETRON INJ 2 MG/ML 2 ML VIAL IV PRN (21:10)
[2022-05-07] MEDS: *LANTHANUM*ORDER AWAITING ACTION SCH ×3 (01:30→15:18)
[2022-05-07 07:53] LABS: Hematocrit (blood only) 36.7 % (34.1-44.9); Hemoglobin 11.9 g/dl (12.0-16.0); Mean Corpuscular Hemoglobin 31.9 pg (25.0-34.0); Mean Corpuscular Hgb Conc 32.4 g/dL (32.0-36.0); Mean Corpuscular Volume 98.4 fL (80.0-100.0); Nucleated RBC # (auto) 0.02 K/uL (0-0); Nucleated RBC % (auto) 0.1 %; Platelet Count 147 K/uL (130-400); RDW Coefficient of Variation 16.1 % (11.5-14.5); RDW Standard Deviation 57.7 fL (36.4-46.3); Red Blood Count 3.73 M/uL (3.93-5.22); White Blood Count 15.56 K/ul (4.8-10.8)
[2022-05-07 08:24] LABS: BUN Creatinine Ratio 4.9 (10-20); Est GFR (Non-African American) 11.2 ml/min; Magnesium 1.9 mg/dl (1.7-2.4); Phosphorus 2.5 mg/dl (2.5-4.9); Potassium 3.4 mmol/L (3.5-5.1)
[2022-05-07] MEDS: DOXYCYCLINE HYCLATE 100 MG CAP PO SCH ×2 (08:24→20:06)
[2022-05-07] MEDS: ASPIRIN 81 MG ECTAB PO SCH (08:24)
[2022-05-07] MEDS: METOPROLOL SUCC 50MG EXT REL TAB PO SCH (08:25)
[2022-05-07] MEDS: levETIRAcetam 500 MG TAB PO SCH ×2 (08:25→20:06)
[2022-05-07] MEDS ORDERED: ALBUMIN 25% 100 mL 25 GM/100 ML VIAL IV ONE (09:00)
--- NOTE | 2022-05-07 09:58 | Nephrology Progress Note ---
Date of Service May 07, 2022 Assessment & Plan (1) ESRD (end stage renal disease) on dialysis: Plan: HD on 05/05 for 2L UF; on 05/06 for 1.8L. despite lower pressures has not needed pressor support. BP has however dropped again today since midnight > she had her first dose of metoprolol last evening > lowered long acting BB dose to hs 25 mg and will d/w cardiology if ?amiodarone could be added to help w/ HR; will need ultimately to time OP dose around HD txs >defer HD today d/t hemodynamics; 02 needs stable at 2L >again today will attempt UF to improve resp status; pressors may be needed to maintain blood pressure for this -next HD 05/11; anticipate eval for daily dialysis next few days (except tomorrow when we have no dialysis staff) to optimize volume status -phos is 2.5 today >> no indication for binder at this time; no crushable binders on formulary unfortunately; recommend asking daughter to bring any nonexpired binders to hospital if she has any; alternatively just no binder during this admission versus crushed calcium carbonate in pudding -no further phos repletion w/o d/w nephro -checking phos daily to continue (2) Respiratory failure with hypoxia and hypercapnia: Plan: improving/stabilized and multifactorial; appreciate critical care and cardiology evals. BL pl effusions on CT plus al OL sgns; new large WMA and dminished EF to 40% w/ PASP 75/stiff IVC -UF as aggressively as she will tolerate w/ HD (3) Goals of care, counseling/discussion: Plan: pt has had very challenging 2 mos clinically and is debilitated from over a month of serial/ongoing respiratory infections; agrees to pressors but not to intubation; does agree to cardiac meds -appreciate palliative and other teams' work at goals of care w/ her Admission and Anticipated Discharge Date Admission Date: May 04, 2022 Subjective daughter and granddaughter at bedside on PM rounds; pt is extremely confused - tells me she's been walking; htinks it's daytime; cooperative; no pain still deep cough; limited by pt MS Review of Systems Review of Systems: All systems reviewed & are unremarkable except as noted in Subjective Physical Exam Constitutional: well developed, well nourished, + frail appearing and cooperative; no acute distress Eyes: EOM intact bilaterally ENMT: Ears: no external ear abnormality Nose: no external nose abnormality Mouth: + dry oral mucous membranes Neck: no nuchal rigidity Respiratory: normal respiratory effort (on 02NC) Auscultation: + diminished lung sounds Cardiovascular: Rate/Rhythm: + tachycardic and + irregularly irregular Extremities: + AV fistula (LUE + t/b); no edema (BLE and improved on BUE) Gastrointestinal (Abdomen): Inspection/Auscultation: normal bowel sounds Percussion/Palpation: abdomen soft; abdomen nontender Musculoskeletal: Extremities: strength 5/5 throughout Skin: no rashes, warm and dry Psychiatric: Orientation: oriented to person, oriented to place and cooperative Results & Data ([facility]) Vital Signs (Past 12 Hours) Vital Signs Temp Pulse Pulse Pulse Resp BP Pulse Ox 05/07/22 07:44 05/07/22 07:00 121 H 05/07/22 07:36 36.6 C 112 H 20 89/58 L 96 05/07/22 04:37 36.6 C 112 H 18 95/63 L 96 05/06/22 23:00 114 H 05/06/22 23:44 36.8 C 106 H 16 96/57 L 100 O2 Del Method O2 Flow Rate 05/07/22 07:44 Nasal Cannula 2 05/07/22 07:00 05/07/22 07:36 Nasal Cannula 2 05/07/22 04:37 Nasal Cannula 2 05/06/22 23:00 05/06/22 23:44 Nasal Cannula 2 Laboratory Results 05/07/22 07:15 05/07/22 07:15
--- NOTE | 2022-05-07 12:16 | Hospitalist Progress Note ---
Date of Service May 07, 2022 Assessment & Plan (1) Cardiorenal syndrome with renal failure: (2) Influenza A: (3) Pulmonary edema: (4) Seizure disorder: (5) Atrial fibrillation with rapid ventricular response: (6) CAD (coronary artery disease): (7) Dyslipidemia: (8) DM type 2 (diabetes mellitus, type 2): (9) GERD (gastroesophageal reflux disease): Plan Cardiorenal syndrome with renal failure: Pulmonary edema: CXR: Cardiomegaly with evidence of congestive failure; pulmonary edema. Correlate clinically for evidence of a superimposed infectious/inflammatory pneumonitis; Small pleural effusions. Patient hypotensive in ED; 70/50 (55); albumin IV administered x1; SBP now 90 0.9 NSB 500 mL bolus x1 in ED Makes trace amt of urine. Per nursing facility patient makes small amounts of urine Last dialysis; no fluid removal was 05/03/22 Cardiology and nephrology consulted; discussed with Dr. Lanza. 05/05 - Need for dialysis. Patient hypotensive in ED yesterday, currently on BiPAP. Per nephrology patient may need ICU. Contacted laboratory associate, plan for transfer to ICU for now. Patient is alert awake, tolerating BiPAP well. Feels weak but otherwise has no complaints at this time. 05/06 overnight patient in ICU developed A. fib with RVR. Amiodarone infusion was started. Currently laying in bed, in no acute distress. She is able to answer simple questions appropriately. Heart rate is still elevated but improved. Cardiology following. 05/07 patient had dialysis last evening. Amiodarone infusion stopped. Patient restarted on metoprolol-plan to uptitrate to home dose Palliative consult placed as patient with multiple comorbid conditions and general goals of care conversation would be helpful. Influenza A: renal dose Tamiflu initially - but pt out of window and so stopped Procalcitonin negative Continue with antibiotic treatment CAD: Atrial fibrillation with RVR: Not on any anticoagulation Metoprolol note different dosing on HD days; was on hold for hypotension Cardiology consulted -restarted metoprolol, plan to uptitrate to home dose History of seizure disorder: cont. Keppra Dyslipidemia: cont. Atorvastatin Gout: cont. Allopurinol Depression and Anxiety: Takes Mertazapime; hold for now Takes Trazadone (2 week trial to complete 05/09 per OP records); held on admission due to somnolence Disposition: PCP: Dr. Cerda CODE STATUS: DNR/DNI VTE prophylaxis: Teds and SCDs for now Admission and Anticipated Discharge Date Admission Date: May 04, 2022 Subjective Pt seen in follow-up for hypoxic respiratory failure, CHF, end-stage renal disease on dialysis, Positive for RSV, and influenza Patient had dialysis last evening. Currently in bed, in no acute distress, on supplemental oxygen via nasal cannula She is awake and alert, able to answer simple questions appropriately. Heart rate continues to be somewhat elevated, BP on lower side Oxygen requirement however is much decreased, currently on 2 L Denies chest pain, shortness of breath, reports feeling weak Review of Systems Review of Systems: All systems reviewed & are unremarkable except as noted in Subjective Physical Exam Physical Exam: General: Elderly female, obese, on suppl. O2 via NC HEENT: head normocephalic, moist mucus membranes CV: irregularly irregular, tachycardic (-) M/G/R, (-) edema Resp: + crackles GI: Abdomen soft, +obese, NT/ND Musculoskeletal: moves extremities Neuro: Awake alert. Able to answer simple questions. Moves extremities. Skin: (-) rashes , (-) erythema. Results & Data Results & Data ([facility]) Vital Signs (Past 12 Hours) Vital Signs Temp Pulse Pulse Pulse Resp BP Pulse Ox 05/07/22 11:00 36.4 C L 115 H 18 93/67 L 94 05/07/22 07:44 05/07/22 07:00 121 H 05/07/22 07:36 36.6 C 112 H 20 89/58 L 96 05/07/22 04:37 36.6 C 112 H 18 95/63 L 96 O2 Del Method O2 Flow Rate 05/07/22 11:00 Nasal Cannula 2 05/07/22 07:44 Nasal Cannula 2 05/07/22 07:00 05/07/22 07:36 Nasal Cannula 2 05/07/22 04:37 Nasal Cannula 2 Laboratory Results 05/07/22 05/07/22 05/07/22 Range/Units 07:15 07:15 05:20 WBC 15.56 H (4.8-10.8) K/ul RBC 3.73 L (3.93-5.22) M/uL Hgb 11.9 L (12.0-16.0) g/dl Hct 36.7 (34.1-44.9) % MCV 98.4 (80.0-100.0) fL MCH 31.9 (25.0-34.0) pg MCHC 32.4 (32.0-36.0) g/dL RDW Std Deviation 57.7 H (36.4-46.3) fL RDW Coeff of [place] 16.1 H (11.5-14.5) % Plt Count 147 (130-400) K/uL MPV 13.0 H (9.4-12.3) fL Absolute Nucleated RBC 0.02 H (0-0) K/uL Nucleated RBC % (auto) 0.1 % Sodium 138 (136-145) mmol/L Potassium 3.4 L (3.5-5.1) mmol/L Chloride 100 (98-107) mmol/L Carbon Dioxide 29 (21-32) mmol/L Anion Gap 9 (3-11) BUN 18 (6-23) mg/dl Creatinine 3.67 H (0.6-1.2) mg/dl Est Cr Clr Drug Dosing 13.0 ml/min Est GFR ( Amer) 13.0 ml/min Est GFR (Non-Af Amer) 11.2 ml/min BUN/Creatinine Ratio 4.9 L (10-20) Glucose 103 H (70-99(Fasting)) mg/dl POC Glucose (70-99) mg/dl Calcium 9.0 (8.5-10.1) mg/dl Phosphorus 2.5 (2.5-4.9) mg/dl Magnesium 1.9 (1.7-2.4) mg/dl Urine Color Urine Appearance (Clear) Urine pH (4.5-7.5) Ur Specific [place] (1.000-1.030) Urine Protein (Negative) Urine Glucose (UA) (Negative) Urine Ketones (Negative) Urine Blood (Negative) Urine Nitrite (Negative) Urine Bilirubin (Negative) Urine Urobilinogen (Negative) Ur Leukocyte Esterase (Negative) Urine WBC (Auto) (0-5) /hpf Urine RBC (Auto) (0-4) /hpf U Hyaline Cast (Auto) (0-5) /lpf U Epithel Cells (Auto) (0-5) /lpf Urine Bacteria (Auto) (Negative) Urine Yeast Stl C. diff Tox B Gene Negative Cdiff Gene (Neg) 05/06/22 05/06/22 Range/Units 18:02 17:00 WBC (4.8-10.8) K/ul RBC (3.93-5.22) M/uL Hgb (12.0-16.0) g/dl Hct (34.1-44.9) % MCV (80.0-100.0) fL MCH (25.0-34.0) pg MCHC (32.0-36.0) g/dL RDW Std Deviation (36.4-46.3) fL RDW Coeff of [place] (11.5-14.5) % Plt Count (130-400) K/uL MPV (9.4-12.3) fL Absolute Nucleated RBC (0-0) K/uL Nucleated RBC % (auto) % Sodium (136-145) mmol/L Potassium (3.5-5.1) mmol/L Chloride (98-107) mmol/L Carbon Dioxide (21-32) mmol/L Anion Gap (3-11) BUN (6-23) mg/dl Creatinine (0.6-1.2) mg/dl Est Cr Clr Drug Dosing ml/min Est GFR ( Amer) ml/min Est GFR (Non-Af Amer) ml/min BUN/Creatinine Ratio (10-20) Glucose (70-99(Fasting)) mg/dl POC Glucose 107 H (70-99) mg/dl Calcium (8.5-10.1) mg/dl Phosphorus (2.5-4.9) mg/dl Magnesium (1.7-2.4) mg/dl Urine Color [place] Urine Appearance Turbid A (Clear) Urine pH 8.5 H (4.5-7.5) Ur Specific [place] 1.025 (1.000-1.030) Urine Protein 4+ H (Negative) Urine Glucose (UA) Negative (Negative) Urine Ketones Negative (Negative) Urine Blood 3+ H (Negative) Urine Nitrite Negative (Negative) Urine Bilirubin Negative (Negative) Urine Urobilinogen Negative (Negative) Ur Leukocyte Esterase 3+ H (Negative) Urine WBC (Auto) >30 H (0-5) /hpf Urine RBC (Auto) >30 H (0-4) /hpf U Hyaline Cast (Auto) 1-5 (0-5) /lpf U Epithel Cells (Auto) 10-20 H (0-5) /lpf Urine Bacteria (Auto) 1+ H (Negative) Urine Yeast Not Reportable Stl C. diff Tox B Gene (Neg) Medications Administered Current Inpatient Medications Acetaminophen (Acetaminophen 325 Mg Tab) 650 mg PO Q4H PRN PRN Reason: Pain or Fever Stop: 06/03/22 13:57 Al Hydrox/Mg Hydrox/Simethicone (Aluminum/Magnesium Susp 30 Ml Udc) 15 ml PO Q4H PRN PRN Reason: Dyspepsia Stop: 06/03/22 13:57 Aspirin (Aspirin 81 Mg Ectab) 162 mg PO DAILY [facility] Stop: 06/04/22 08:59 Last Admin: 05/07/22 08:24 Dose: 162 mg Doxycycline Hyclate (Doxycycline Hyclate 100 Mg Cap) 100 mg PO BID [facility] Stop: 05/11/22 20:59 Last Admin: 05/07/22 08:24 Dose: 100 mg Ceftriaxone Sodium 2,000 mg/ (Dextrose) 70 mls @ 100 mls/hr IV Q24H [facility]; Protocol Stop: 05/11/22 19:59 Last Infusion: 05/06/22 21:40 Dose: Infused Levalbuterol HCl (Levalbuterol Hcl 0.63 Mg/3 Ml Neb) 0.63 mg NEB Q6R PRN; Protocol PRN Reason: Shortness Of Breath Or Wheezing Stop: 06/03/22 18:59 Levetiracetam (Levetiracetam 500 Mg Tab) 500 mg PO MoWeFr@0900,1400,2100 [facility] Stop: 06/05/22 08:59 Last Admin: 05/06/22 20:58 Dose: 500 mg Levetiracetam (Levetiracetam 500 Mg Tab) 500 mg PO SuTuThSa@0900,2100 [facility] Stop: 06/06/22 08:59 Last Admin: 05/07/22 08:25 Dose: 500 mg Lidocaine/Prilocaine (Lidocaine/Prilocaine 2.5% Ea Crm) 1 each EXT MoWeFr@0900 [facility] Stop: 06/03/22 15:59 Last Admin: 05/06/22 19:26 Dose: Not Given Magnesium Hydroxide (Magnesium Hydroxide Susp 30 Ml Udc) 30 ml PO Q12H PRN PRN Reason: Constipation Stop: 06/03/22 13:57 Metoprolol Succinate (Metoprolol Succ 25mg Ext Rel Tab) 25 mg PO [facility] Stop: 06/06/22 20:59 Metoprolol Tartrate (Metoprolol Tartrate 25 Mg Tab) 25 mg PO ONE ONE Stop: 05/07/22 13:01 Miscellaneous (*Lanthanum*Order Awaiting Action) 1 each N/A QS [facility] Stop: 06/03/22 17:14 Last Admin: 05/07/22 07:50 Dose: Not Given Ondansetron HCl (Ondansetron Inj 2 Mg/Ml 2 Ml Vial) 4 mg IV Q6H PRN PRN Reason: Nausea Stop: 06/03/22 13:57 Last Admin: 05/06/22 21:10 Dose: 4 mg Polyethylene Glycol (Polyethylene (Miralax) 17 Gm Pack) 17 gm PO DAILY PRN PRN Reason: Constipation Stop: 06/03/22 13:57 (1) CAD (coronary artery disease) Associated angina: without angina Coronary Disease-Associated Artery/Lesion type: unspecified vessel or lesion type [place] vs. transplanted heart: [place] heart Qualified Code(s): I25.10 - Atherosclerotic heart disease of [place] coronary artery without angina pectoris
[2022-05-07] MEDS ORDERED: POTASSIUM CHLORIDE PWD 20 MEQ PACK PO ONE (12:17)
[2022-05-07] MEDS ORDERED: METOPROLOL TARTRATE 25 MG TAB PO ONE (13:00)
--- NOTE | 2022-05-07 14:11 | Cardiology Progress Note ---
Date of Service May 07, 2022 Assessment & Plan (1) Chronic atrial fibrillation: (2) Contraindication to anticoagulation therapy: (3) Coronary artery disease: (4) Hypertensive heart disease: (5) Pulmonary hypertension: (6) Sleep apnea: (7) Chronic right heart failure: (8) Cerebral amyloid angiopathy: (9) Non-traumatic intracerebral ventricular hemorrhage: (10) End stage renal disease: Plan Chronic atrial fibrillation. -Elevated ventricular rates overnight with hypotension -Metoprolol had been held yesterday -Overnight she was started on IV amiodarone to aid with HR's in setting of hypotension -this morning, HR's remain elevated, but she is asymptomatic. BP also improved. -resume metoprolol 50 mg every AM (home dose is 50 mg BID per notes) -Patient with contraindications to chronic anticoagulation - numerous falls, cerebellar amyloid angiopathy, non-traumatic right posterior nontraumatic intracerebral ventricular hemorrhage complicated by seizure in March 2016 Mildly elevated troponin. Patient with known chronic coronary artery disease with prior LAD intervention. Diagnostic cardiac catheterization last on June 06, 2014 revealed moderate nonobstructive CAD with vessels were notable quite large and tortuous, consistent with her history of hypertension. Asymptomatic. Continue medical management. CHF exacerbation with mildly reduced LVEF. Multifactorial in etiology. + Hypoalbuminemia. Chronic diastolic/right heart failure. Moderate to severe tricuspid regurgitation with moderate pulmonary hypertension. Untreated sleep apnea. Volume status controlled via hemodialysis. Abnormal CXR with b/l pleural effusions - -volume to be addressed during dialysis Cerebrovascular accident in September 2019, in the setting of chronic atrial fibrillation, moderate bilateral carotid vascular disease. Hypertensive heart disease with preserved LV systolic function by prior echocardiography. Dyslipidemia with LDL goal less than 70 mg/dL. Continue atorvastatin 80 mg/day. Heart rate remains elevated with tenuous blood pressures, will avoid digoxin given end-stage renal disease Chart history of allergy to verapamil so we will hold off on calcium channel blockers now as well Continue to monitor Admission and Anticipated Discharge Date Admission Date: May 04, 2022 Subjective Patient seen and examined, telemetry reviewed. Chart reviewed. Review of Systems Review of Systems: A Complete Review of Systems was unable to be obtained due to the patient's status. Results & Data ([place]) Vital Signs (Past 12 Hours) Vital Signs Temp Pulse Pulse Pulse Resp BP Pulse Ox 05/07/22 11:00 36.4 C L 115 H 18 93/67 L 94 01/07/23 07:44 05/07/22 07:00 121 H 05/07/22 07:36 36.6 C 112 H 20 89/58 L 96 05/07/22 04:37 36.6 C 112 H 18 95/63 L 96 O2 Del Method O2 Flow Rate 05/07/22 11:00 Nasal Cannula 2 05/07/22 07:44 Nasal Cannula 2 05/07/22 07:00 05/07/22 07:36 Nasal Cannula 2 05/07/22 04:37 Nasal Cannula 2
[2022-05-07] MEDS: cefTRIAXone SODIUM 2,000 MG in DEXTROSE 5% 50 ML IV SCH (20:05)
[2022-05-07] MEDS: METOPROLOL SUCC 25MG EXT REL TAB PO SCH (20:06)
[2022-05-08] MEDS: *LANTHANUM*ORDER AWAITING ACTION SCH ×3 (01:10→16:14)
[2022-05-08 07:34] LABS: BUN Creatinine Ratio 5.3 (10-20); Calcium 9.2 mg/dl (8.5-10.1); Creatinine Clr Calc Pharmacy 9.7 ml/min; Est GFR (African American) 9.1 ml/min; Est GFR (Non-African American) 7.9 ml/min; Potassium 3.5 mmol/L (3.5-5.1)
--- NOTE | 2022-05-08 07:48 | Hospitalist Progress Note ---
Date of Service May 08, 2022 Assessment & Plan (1) Cardiorenal syndrome with renal failure: (2) Influenza A: (3) Pulmonary edema: (4) Seizure disorder: (5) Atrial fibrillation with rapid ventricular response: (6) CAD (coronary artery disease): (7) Dyslipidemia: (8) DM type 2 (diabetes mellitus, type 2): (9) GERD (gastroesophageal reflux disease): Plan Cardiorenal syndrome with renal failure: Pulmonary edema: CXR: Cardiomegaly with evidence of congestive failure; pulmonary edema. Correlate clinically for evidence of a superimposed infectious/inflammatory pneumonitis; Small pleural effusions. Patient hypotensive in ED; 70/50 (55); albumin IV administered x1; SBP now 90 0.9 NSB 500 mL bolus x1 in ED Makes trace amt of urine. Per nursing facility patient makes small amounts of urine Last dialysis; no fluid removal was 05/03/22 Cardiology and nephrology consulted; discussed with Dr. Lanza. 05/05 - Need for dialysis. Patient hypotensive in ED yesterday, currently on BiPAP. Per nephrology patient may need ICU. Contacted utility maintenance worker, plan for transfer to ICU for now. Patient is alert awake, tolerating BiPAP well. Feels weak but otherwise has no complaints at this time. 05/06 overnight patient in ICU developed A. fib with RVR. Amiodarone infusion was started. Currently laying in bed, in no acute distress. She is able to answer simple questions appropriately. Heart rate is still elevated but improved. Cardiology following. 05/07 patient had dialysis last evening. Amiodarone infusion stopped. Patient restarted on metoprolol-plan to uptitrate to home dose 05/08 heart rate better controlled, however still tachycardic. Currently on metoprolol. Palliative consult placed as patient with multiple comorbid conditions and general goals of care conversation would be helpful. Influenza A: renal dose Tamiflu initially - but pt out of window and so stopped Procalcitonin negative Continue with antibiotic treatment CAD: Atrial fibrillation with RVR: Not on any anticoagulation Metoprolol note different dosing on HD days; was on hold for hypotension Cardiology consulted -restarted metoprolol, plan to uptitrate to home dose History of seizure disorder: cont. Keppra Dyslipidemia: cont. Atorvastatin Gout: cont. Allopurinol Depression and Anxiety: Takes Mertazapime; hold for now Takes Trazadone (2 week trial to complete 05/09 per OP records); held on admission due to somnolence Disposition: PCP: Dr. Cerda CODE STATUS: DNR/DNI VTE prophylaxis: heparin subq Admission and Anticipated Discharge Date Admission Date: May 04, 2022 Subjective Pt seen in follow-up for hypoxic respiratory failure, CHF, end-stage renal disease on dialysis, Positive for RSV, and influenza Currently laying in bed, in no acute distress, on supplemental oxygen 2L via nasal cannula She is awake and alert, able to answer simple questions appropriately. Heart rate continues to be somewhat elevated, BP on lower side Denies chest pain, shortness of breath, reports feeling weak and tired Review of Systems Review of Systems: All systems reviewed & are unremarkable except as noted in Subjective Physical Exam Physical Exam: General: Elderly female, obese, on suppl. O2 2L via [place] HEENT: head normocephalic, moist mucus membranes CV: irregularly irregular, tachycardic (-) M/G/R, (-) edema Resp: + crackles GI: Abdomen soft, +obese, NT/ND Musculoskeletal: moves extremities Neuro: Awake alert. Able to answer simple questions. Moves extremities. Skin: (-) rashes , (-) erythema. Results & Data Results & Data ([facility]) Vital Signs (Past 12 Hours) Vital Signs Temp Pulse Pulse Pulse Resp BP Pulse Ox 05/08/22 07:00 36.4 C L 110 H 16 101/70 100 05/08/22 07:00 111 H 05/08/22 03:00 36.3 C L 107 H 18 121/75 98 05/07/22 23:17 116 H 05/07/22 23:00 36.8 C 110 H 18 104/63 100 05/07/22 20:00 05/07/22 19:50 36.6 C 116 H 20 105/69 98 O2 Del Method O2 Flow Rate 05/08/22 07:00 Room Air 05/08/22 07:00 05/08/22 03:00 Nasal Cannula 2 05/07/22 23:17 05/07/22 23:00 Nasal Cannula 2 05/07/22 20:00 Nasal Cannula 2 05/07/22 19:50 Nasal Cannula 2 Laboratory Results 05/08/22 05/08/22 Range/Units 06:23 06:23 WBC 12.47 H (4.8-10.8) K/ul RBC 3.54 L (3.93-5.22) M/uL Hgb 11.3 L (12.0-16.0) g/dl Hct 35.5 (34.1-44.9) % MCV 100.3 H (80.0-100.0) fL MCH 31.9 (25.0-34.0) pg MCHC 31.8 L (32.0-36.0) g/dL RDW Std Deviation 60.5 H (36.4-46.3) fL RDW Coeff of [place] 16.6 H (11.5-14.5) % Plt Count 141 (130-400) K/uL MPV 13.1 H (9.4-12.3) fL Absolute Nucleated RBC 0.03 H (0-0) K/uL Nucleated RBC % (auto) 0.2 % Sodium 140 (136-145) mmol/L Potassium 3.5 (3.5-5.1) mmol/L Chloride 102 (98-107) mmol/L Carbon Dioxide 30 (21-32) mmol/L Anion Gap 8 (3-11) BUN 26 H (6-23) mg/dl Creatinine 4.91 H* D (0.6-1.2) mg/dl Est Cr Clr Drug Dosing 9.7 ml/min Est GFR ( Amer) 9.1 ml/min Est GFR (Non-Af Amer) 7.9 ml/min BUN/Creatinine Ratio 5.3 L (10-20) Glucose 90 (70-99(Fasting)) mg/dl Calcium 9.2 (8.5-10.1) mg/dl Magnesium 2.0 (1.7-2.4) mg/dl Medications Administered Current Inpatient Medications Acetaminophen (Acetaminophen 325 Mg Tab) 650 mg PO Q4H PRN PRN Reason: Pain or Fever Stop: 06/03/22 13:57 Al Hydrox/Mg Hydrox/Simethicone (Aluminum/Magnesium Susp 30 Ml Udc) 15 ml PO Q4H PRN PRN Reason: Dyspepsia Stop: 06/03/22 13:57 Allopurinol (Allopurinol 300 Mg Tab) 450 mg PO DAILY [facility] Stop: 06/07/22 08:59 Last Admin: 05/08/22 08:49 Dose: 450 mg Aspirin (Aspirin 81 Mg Ectab) [address] [facility] Stop: 06/04/22 08:59 Last Admin: 05/08/22 08:49 Dose: 162 mg Atorvastatin Calcium (Atorvastatin 40 Mg Tab) [address] [facility] Stop: 06/07/22 08:59 Last Admin: 05/08/22 08:50 Dose: 80 mg Doxycycline Hyclate (Doxycycline Hyclate 100 Mg Cap) [address] [facility] Stop: 05/11/22 20:59 Last Admin: 05/08/22 08:49 Dose: 100 mg Guaifenesin (Guaifenesin Sugar Free 200 Mg/10 Ml Udc) [address] [facility] Stop: 06/07/22 11:14 Last Admin: 05/08/22 12:18 Dose: 200 mg Ceftriaxone Sodium 2,000 mg/ (Dextrose) 70 mls @ 100 mls/hr IV Q24H [facility]; Protocol Stop: 05/11/22 19:59 Last Infusion: 05/07/22 21:00 Dose: Infused Levalbuterol HCl (Levalbuterol Hcl 0.63 Mg/3 Ml Neb) 0.63 mg NEB Q6R PRN; Protocol PRN Reason: Shortness Of Breath Or Wheezing Stop: 06/03/22 18:59 Levetiracetam (Levetiracetam 500 Mg Tab) 500 mg PO MoWeFr@0900,1400,2100 [facility] Stop: 06/05/22 08:59 Last Admin: 05/06/22 20:58 Dose: 500 mg Levetiracetam (Levetiracetam 500 Mg Tab) 500 mg PO SuTuThSa@0900,2100 [facility] Stop: 06/06/22 08:59 Last Admin: 05/08/22 08:51 Dose: 500 mg Lidocaine/Prilocaine (Lidocaine/Prilocaine 2.5% Ea Crm) 1 each EXT MoWeFr@0900 [facility] Stop: 06/03/22 15:59 Last Admin: 05/06/22 19:26 Dose: Not Given Magnesium Hydroxide (Magnesium Hydroxide Susp 30 Ml Udc) 30 ml PO Q12H PRN PRN Reason: Constipation Stop: 06/03/22 13:57 Metoprolol Succinate (Metoprolol Succ 25mg Ext Rel Tab) 25 mg PO [facility] Stop: 06/06/22 20:59 Last Admin: 05/07/22 20:06 Dose: 25 mg Metoprolol Tartrate (Metoprolol Tartrate 25 Mg Tab) [address] [facility] Stop: 06/07/22 11:44 Last Admin: 05/08/22 12:18 Dose: Not Given Miscellaneous (*Lanthanum*Order Awaiting Action) 1 each N/A QS [facility] Stop: 06/03/22 17:14 Last Admin: 05/08/22 07:20 Dose: Not Given Ondansetron HCl (Ondansetron Inj 2 Mg/Ml 2 Ml Vial) 4 mg IV Q6H PRN PRN Reason: Nausea Stop: 06/03/22 13:57 Last Admin: 05/06/22 21:10 Dose: 4 mg Polyethylene Glycol (Polyethylene (Miralax) 17 Gm Pack) 17 gm PO DAILY PRN PRN Reason: Constipation Stop: 06/03/22 13:57 (1) CAD (coronary artery disease) Associated angina: without angina Coronary Disease-Associated Artery/Lesion type: unspecified vessel or lesion type [place] vs. transplanted heart: [place] heart Qualified Code(s): I25.10 - Atherosclerotic heart disease of [place] coronary artery without angina pectoris
[2022-05-08 08:04] LABS: Hematocrit (blood only) 35.5 % (34.1-44.9); Hemoglobin 11.3 g/dl (12.0-16.0); Mean Corpuscular Hemoglobin 31.9 pg (25.0-34.0); Mean Corpuscular Hgb Conc 31.8 g/dL (32.0-36.0); Mean Corpuscular Volume 100.3 fL (80.0-100.0); Mean Platelet Volume 13.1 fL (9.4-12.3); Nucleated RBC # (auto) 0.03 K/uL (0-0); Nucleated RBC % (auto) 0.2 %; Platelet Count 141 K/uL (130-400); RDW Coefficient of Variation 16.6 % (11.5-14.5); RDW Standard Deviation 60.5 fL (36.4-46.3); Red Blood Count 3.54 M/uL (3.93-5.22); White Blood Count 12.47 K/ul (4.8-10.8)
[2022-05-08] MEDS: DOXYCYCLINE HYCLATE 100 MG CAP PO SCH ×2 (08:49→19:54)
[2022-05-08] MEDS: allopurinoL 300 MG TAB PO SCH (08:49)
[2022-05-08] MEDS: ASPIRIN 81 MG ECTAB PO SCH (08:49)
[2022-05-08] MEDS: ATORVASTATIN 40 MG TAB PO SCH (08:50)
[2022-05-08] MEDS: levETIRAcetam 500 MG TAB PO SCH ×2 (08:51→19:56)
[2022-05-08] MEDS: METOPROLOL TARTRATE 25 MG TAB PO SCH ×2 (12:18→19:54)
[2022-05-08] MEDS: guaiFENesin SUGAR FREE 200 MG/10 ML UDC PO SCH ×2 (12:18→18:33)
[2022-05-08] MEDS: cefTRIAXone SODIUM 2,000 MG in DEXTROSE 5% 50 ML IV SCH (19:51)
[2022-05-08] MEDS: METOPROLOL SUCC 25MG EXT REL TAB PO SCH (19:55)
[2022-05-08] MEDS: HEPARIN SOD 5,000 UNIT/0.5 ML VIAL SQ SCH (20:02)
[2022-05-08] MEDS: NYSTATIN POWDER 15GM BTL EXT SCH (23:35)
[2022-05-09] MEDS: guaiFENesin SUGAR FREE 200 MG/10 ML UDC PO SCH ×5 (00:23→23:04)
[2022-05-09] MEDS: *LANTHANUM*ORDER AWAITING ACTION SCH ×2 (00:23→11:02)
[2022-05-09 06:51] LABS: BUN Creatinine Ratio 5.9 (10-20); Calcium 9.5 mg/dl (8.5-10.1); Est GFR (African American) 7.3 ml/min; Est GFR (Non-African American) 6.3 ml/min; Potassium 3.2 mmol/L (3.5-5.1)
--- NOTE | 2022-05-09 08:14 | XRay Report ---
XR chest 1V portable CLINICAL HISTORY: follow up hypoxia TECHNIQUE: Single frontal radiograph of the chest was obtained. Comparison: Comparison is made to chest radiograph on 523 FINDINGS: No lines and tubes are seen. Cardiomegaly is noted. The aortic arch is calcified. Mild pulmonary diamanet a is similar to prior exam. Right greater than left lower lobe airspace opacity is seen, unchanged. T here are small bilateral pleural effusions. IMPRESSION: Stable appearing mild pulmonary edema, right greater than left airspace opacities, and small bilatera l pleural effusions. ACT 112: Negative or not required by law. Electronically signed by: Kole Hammond M.D. 05/09/2022 8:11 AM
[2022-05-09] MEDS: ASPIRIN 81 MG ECTAB PO SCH (08:29)
[2022-05-09] MEDS: DOXYCYCLINE HYCLATE 100 MG CAP PO SCH ×2 (08:29→20:46)
[2022-05-09] MEDS: levETIRAcetam 500 MG TAB PO SCH ×3 (08:29→20:46)
[2022-05-09] MEDS: allopurinoL 300 MG TAB PO SCH (08:29)
[2022-05-09] MEDS: ATORVASTATIN 40 MG TAB PO SCH (08:29)
[2022-05-09] MEDS: NYSTATIN POWDER 15GM BTL EXT SCH ×2 (08:30→20:46)
[2022-05-09] MEDS ORDERED: POTASSIUM CHLORIDE PWD 20 MEQ PACK PO ONE (08:56)
--- NOTE | 2022-05-09 08:57 | Hospitalist Progress Note ---
Date of Service May 09, 2022 Assessment & Plan (1) Cardiorenal syndrome with renal failure: (2) Influenza A: (3) Pulmonary edema: (4) Seizure disorder: (5) Atrial fibrillation with rapid ventricular response: (6) CAD (coronary artery disease): (7) Dyslipidemia: (8) DM type 2 (diabetes mellitus, type 2): (9) GERD (gastroesophageal reflux disease): Plan Cardiorenal syndrome with renal failure: Pulmonary edema: CXR: Cardiomegaly with evidence of congestive failure; pulmonary edema. Correlate clinically for evidence of a superimposed infectious/inflammatory pneumonitis; Small pleural effusions. Patient hypotensive in ED; 70/50 (55); albumin IV administered x1; SBP now 90 0.9 NSB 500 mL bolus x1 in ED Makes trace amt of urine. Per nursing facility patient makes small amounts of urine Last dialysis; no fluid removal was 05/03/22 Cardiology and nephrology consulted; discussed with Dr. Lanza. 05/05 - Need for dialysis. Patient hypotensive in ED yesterday, currently on BiPAP. Per nephrology patient may need ICU. Contacted working supervisor, plan for transfer to ICU for now. Patient is alert awake, tolerating BiPAP well. Feels weak but otherwise has no complaints at this time. 05/06 overnight patient in ICU developed A. fib with RVR. Amiodarone infusion was started. Currently laying in bed, in no acute distress. She is able to answer simple questions appropriately. Heart rate is still elevated but improved. Cardiology following. 05/07 patient had dialysis last evening. Amiodarone infusion stopped. Patient restarted on metoprolol-plan to uptitrate to home dose 05/08 heart rate better controlled, however still tachycardic. Currently on metoprolol. Palliative consult placed as patient with multiple comorbid conditions and general goals of care conversation would be helpful. Influenza A: renal dose Tamiflu initially - but pt out of window and so stopped Procalcitonin negative Continue with antibiotic treatment Concern for aspiration - switch cefepime to unasyn Shingles - rash noted at left axilla - valtrex renally dose started CAD: Atrial fibrillation with RVR: Not on any anticoagulation Metoprolol note different dosing on HD days; was on hold for hypotension Cardiology consulted -restarted metoprolol, plan to up-titrate to home dose History of seizure disorder: cont. Keppra Dyslipidemia: cont. Atorvastatin Gout: cont. Allopurinol Depression and Anxiety: Resume Mertazapime Takes Trazadone (2 week trial to complete 05/09 per OP records); held on admission due to somnolence Disposition: PCP: Dr. Cerda CODE STATUS: DNR/DNI VTE prophylaxis: heparin subq Admission and Anticipated Discharge Date Admission Date: May 04, 2022 Subjective Pt seen in follow-up for hypoxic respiratory failure, CHF, end-stage renal disease on dialysis, Positive for RSV, and influenza, also + shingles Currently laying in bed, in no acute distress, on supplemental oxygen 2L via n dejuan cannula She is awake and alert, able to answer simple questions appropriately. Heart rate continues to be somewhat elevated, BP on lower side Denies chest pain, shortness of breath, reports feeling weak and tired Per RN concern about possibly aspirating Encouraged flutter valve, incent. spirometer Review of Systems Review of Systems: All systems reviewed & are unremarkable except as noted in Subjective Physical Exam Physical Exam: General: Elderly female, obese, on suppl. O2 2L via NC HEENT: head normocephalic, moist mucus membranes CV: irregularly irregular, tachycardic (-) M/G/R, (-) edema Resp: + crackles GI: Abdomen soft, +obese, NT/ND Musculoskeletal: moves extremities Neuro: Awake alert. Able to answer simple questions. Moves extremities. Skin: (-) rashes , (-) erythema. Results & Data Results & Data ([facility]) Vital Signs (Past 12 Hours) Vital Signs Temp Pulse Resp BP Pulse Ox O2 Del Method O2 Flow Rate 05/09/22 07:28 36.8 C 115 H 18 101/61 95 Room Air 2 05/09/22 03:18 36.5 C 109 H 20 97/64 L 96 Nasal Cannula 2 05/08/22 23:25 36.7 C 109 H 16 118/68 96 Nasal Cannula 2 Laboratory Results 05/09/22 Range/Units 05:48 Sodium 139 (136-145) mmol/L Potassium 3.2 L (3.5-5.1) mmol/L Chloride 101 (98-107) mmol/L Carbon Dioxide 28 (21-32) mmol/L Anion Gap 10 (3-11) BUN 35 H (6-23) mg/dl Creatinine 5.90 H* D (0.6-1.2) mg/dl Est Cr Clr Drug Dosing 8.0 ml/min Est GFR ( Amer) 7.3 ml/min Est GFR (Non-Af Amer) 6.3 ml/min BUN/Creatinine Ratio 5.9 L (10-20) Glucose 128 H (70-99(Fasting)) mg/dl Calcium 9.5 (8.5-10.1) mg/dl Medications Administered Current Inpatient Medications Acetaminophen (Acetaminophen 325 Mg Tab) 650 mg PO Q4H PRN PRN Reason: Pain or Fever Stop: 06/03/22 13:57 Al Hydrox/Mg Hydrox/Simethicone (Aluminum/Magnesium Susp 30 Ml Udc) 15 ml PO Q4H PRN PRN Reason: Dyspepsia Stop: 06/03/22 13:57 Allopurinol (Allopurinol 300 Mg Tab) 450 mg PO DAILY [facility] Stop: 06/07/22 08:59 Last Admin: 05/09/22 08:29 Dose: 450 mg Aspirin (Aspirin 81 Mg Ectab) 162 mg PO DAILY [facility] Stop: 06/04/22 08:59 Last Admin: 05/09/22 08:29 Dose: 162 mg Atorvastatin Calcium (Atorvastatin 40 Mg Tab) 80 mg PO DAILY [facility] Stop: 06/07/22 08:59 Last Admin: 05/09/22 08:29 Dose: 80 mg Doxycycline Hyclate (Doxycycline Hyclate 100 Mg Cap) 100 mg PO BID [facility] Stop: 05/11/22 20:59 Last Admin: 05/09/22 08:29 Dose: 100 mg Guaifenesin (Guaifenesin Sugar Free 200 Mg/10 Ml Udc) 200 mg PO Q6H [facility] Stop: 06/07/22 11:14 Last Admin: 05/09/22 05:24 Dose: Not Given Heparin Sodium (Porcine) (Heparin Sod 5,000 Unit/0.5 Ml Vial) 5,000 units SQ Q12 [facility] Stop: 06/07/22 20:59 Last Admin: 05/08/22 20:02 Dose: 5,000 units Ceftriaxone Sodium 2,000 mg/ (Dextrose) 70 mls @ 100 mls/hr IV Q24H [facility]; Protocol Stop: 05/11/22 19:59 Last Infusion: 05/08/22 21:43 Dose: Infused Levalbuterol HCl (Levalbuterol Hcl 0.63 Mg/3 Ml Neb) 0.63 mg NEB Q6R PRN; Protocol PRN Reason: Shortness Of Breath Or Wheezing Stop: 06/03/22 18:59 Levetiracetam (Levetiracetam 500 Mg Tab) 500 mg PO MoWeFr@0900,1400,2100 [facility] Stop: 06/05/22 08:59 Last Admin: 05/09/22 08:29 Dose: 500 mg Levetiracetam (Levetiracetam 500 Mg Tab) 500 mg PO SuTuThSa@0900,2100 [facility] Stop: 06/06/22 08:59 Last Admin: 05/08/22 19:56 Dose: 500 mg Lidocaine/Prilocaine (Lidocaine/Prilocaine 2.5% Ea Crm) 1 each EXT MoWeFr@0900 [facility] Stop: 06/03/22 15:59 Last Admin: 05/06/22 19:26 Dose: Not Given Magnesium Hydroxide (Magnesium Hydroxide Susp 30 Ml Udc) 30 ml PO Q12H PRN PRN Reason: Constipation Stop: 06/03/22 13:57 Metoprolol Succinate (Metoprolol Succ 25mg Ext Rel Tab) 25 mg PO HS [facility] Stop: 06/06/22 20:59 Last Admin: 05/08/22 19:55 Dose: 25 mg Metoprolol Tartrate (Metoprolol Tartrate 25 Mg Tab) 25 mg PO QAM [facility] Stop: 06/07/22 11:44 Last Admin: 05/08/22 19:54 Dose: 25 mg Miscellaneous (*Lanthanum*Order Awaiting Action) 1 each N/A QS [facility] Stop: 06/03/22 17:14 Last Admin: 05/09/22 00:23 Dose: Not Given Nystatin (Nystatin Powder 15gm Btl) 1 appln EXT BID [facility] Stop: 06/07/22 20:59 Last Admin: 05/09/22 08:30 Dose: 1 appln Ondansetron HCl (Ondansetron Inj 2 Mg/Ml 2 Ml Vial) 4 mg IV Q6H PRN PRN Reason: Nausea Stop: 06/03/22 13:57 Last Admin: 05/06/22 21:10 Dose: 4 mg Polyethylene Glycol (Polyethylene (Miralax) 17 Gm Pack) 17 gm PO DAILY PRN PRN Reason: Constipation Stop: 06/03/22 13:57 Potassium Chloride (Potassium Chloride Pwd 20 Meq Pack) 20 meq PO ONE ONE Stop: 05/09/22 08:57 (1) CAD (coronary artery disease) Associated angina: without angina Coronary Disease-Associated Artery/Lesion type: unspecified vessel or lesion type [place] vs. transplanted heart: [place] heart Qualified Code(s): I25.10 - Atherosclerotic heart disease of [place] coronary artery without angina pectoris
[2022-05-09] MEDS: LIDOCAINE/PRILOCAINE 2.5% EA CRM EXT SCH (10:21)
[2022-05-09] MEDS: HEPARIN SOD 5,000 UNIT/0.5 ML VIAL SQ SCH ×2 (10:28→20:46)
--- NOTE | 2022-05-09 11:24 | Dialysis Progress Note ---
Date of Service May 09, 2022 Assessment & Plan Admission and Anticipated Discharge Date Admission Date: May 04, 2022 Subjective Assessment & Plan (1) ESRD (end stage renal disease) on dialysis: Plan: Dialysis today for 3 hrs and trying about 2-2.5 off if we can. Still has Pulm edema so will try hard with UF. However BP has been an issue. Afibb with RVR--HR > 110. Will raise the toprol xl to 50 daily. I think persistent HR of > 110 is more dangerous than Slightly lower BP. Low K--so will give po kcl as Unfortunately we dont have 4K bath (2) Respiratory failure with hypoxia and hypercapnia: Plan: improving/stabilized and multifactorial; appreciate critical care and cardiology evals. BL pl effusions new large WMA and diminished EF to 40% w/ PASP 75/stiff IVC (3) Goals of care, counseling/discussion: Plan: pt has had very challenging 2 mos clinically and is debilitated from over a month of serial/ongoing respiratory infections; agrees to pressors but not to intubation; does agree to cardiac meds -appreciate palliative and other teams' work at goals of care w/ her Subjective Seen during Dialysis. So far feels fine. BP is > 120 Sys and HR is 112. AVF fine . On 2 liter o2 now--gets o2 at home also. Review of Systems Review of Systems: All systems reviewed & are unremarkable except as noted in Subjective Physical Exam Constitutional: well developed, well nourished, + frail appearing and cooperative; no acute distress Eyes: EOM intact bilaterally ENMT: Ears: no external ear abnormality Nose: no external nose abnormality Mouth: + dry oral mucous membranes Neck: no nuchal rigidity Respiratory:L normal respiratory effort (on 02NC) Auscultation: + diminished lung sounds Cardiovascular: Rate/Rhythm: + tachycardic and + irregularly irregular Extremities: + AV fistula (LUE + t/b); no edema (BLE and improved on BUE) Gastrointestinal (Abdomen): Inspection/Auscultation: normal bowel sounds Percussion/Palpation: abdomen soft; abdomen nontender Musculoskeletal: Extremities: strength 5/5 throughout Skin: no rashes, warm and dry Psychiatric: Orientation: oriented to person, oriented to place and cooperative Results & Data ([facility]) Vital Signs (Past 12 Hours) Vital Signs Temp Pulse Resp BP Pulse Ox O2 Del Method O2 Flow Rate 05/09/22 08:00 Nasal Cannula 2 05/09/22 07:28 36.8 C 115 H 18 101/61 95 Room Air 2 05/09/22 03:18 36.5 C 109 H 20 97/64 L 96 Nasal Cannula 2 05/08/22 23:25 36.7 C 109 H 16 118/68 96 Nasal Cannula 2
[2022-05-09] MEDS ORDERED: HEPARIN SOD (PORCINE) 1000 UNIT/ML IV ONE (12:19)
[2022-05-09] MEDS ORDERED: SODIUM CHLORIDE 0.9% 1000ML 1,000 ML IV PRN (12:19)
[2022-05-09] MEDS: HEPARIN SOD (PORCINE) 1000 UNIT/ML IV SCH ×2 (12:57→14:38)
[2022-05-09] MEDS: AMPICILLIN/SULBACTAM SOD 3,000 MG in 0.9 % SODIUM CHLORIDE 100 ML IV SCH ×2 (14:37→22:52)
[2022-05-09] MEDS: valACYclovir HCL 500 MG TABLET PO SCH (14:37)
[2022-05-09] MEDS: LANTHANUM CARBONATE PO SCH ×2 (14:39→17:12)
[2022-05-09] MEDS: MIRTAZAPINE TAB 15 MG TAB PO SCH (20:45)
[2022-05-09] MEDS ORDERED: METOPROLOL SUCC 50MG EXT REL TAB PO SCH (21:00)
[2022-05-09] MEDS ORDERED: SODIUM CHLORIDE 0.9% 250 ML IV ONE (23:30)
[2022-05-10] MEDS: guaiFENesin SUGAR FREE 200 MG/10 ML UDC PO SCH ×4 (05:23→22:33)
[2022-05-10 08:32] LABS: BUN Creatinine Ratio 4.4 (10-20); Creatinine Clr Calc Pharmacy 11.1 ml/min; Est GFR (African American) 10.8 ml/min; Est GFR (Non-African American) 9.3 ml/min; Potassium 3.4 mmol/L (3.5-5.1)
[2022-05-10] MEDS: LANTHANUM CARBONATE PO SCH ×3 (09:00→16:26)
[2022-05-10] MEDS: ASPIRIN 81 MG ECTAB PO SCH (09:03)
[2022-05-10] MEDS: levETIRAcetam 500 MG TAB PO SCH ×2 (09:03→21:59)
[2022-05-10] MEDS: ATORVASTATIN 40 MG TAB PO SCH (09:03)
[2022-05-10] MEDS: DOXYCYCLINE HYCLATE 100 MG CAP PO SCH ×2 (09:03→21:59)
[2022-05-10] MEDS: METOPROLOL SUCC 50MG EXT REL TAB PO SCH ×3 (09:03→21:58)
[2022-05-10] MEDS: allopurinoL 300 MG TAB PO SCH (09:03)
[2022-05-10] MEDS: NYSTATIN POWDER 15GM BTL EXT SCH ×2 (09:11→21:59)
[2022-05-10] MEDS: HEPARIN SOD 5,000 UNIT/0.5 ML VIAL SQ SCH ×2 (09:11→21:59)
--- NOTE | 2022-05-10 09:25 | Hospitalist Progress Note ---
Date of Service May 10, 2022 Assessment & Plan (1) Cardiorenal syndrome with renal failure: (2) Influenza A: (3) Pulmonary edema: (4) Seizure disorder: (5) Atrial fibrillation with rapid ventricular response: (6) CAD (coronary artery disease): (7) Dyslipidemia: (8) DM type 2 (diabetes mellitus, type 2): (9) GERD (gastroesophageal reflux disease): Plan Cardiorenal syndrome with renal failure: Pulmonary edema: CXR: Cardiomegaly with evidence of congestive failure; pulmonary edema. Correlate clinically for evidence of a superimposed infectious/inflammatory pneumonitis; Small pleural effusions. Patient hypotensive in ED; 70/50 (55); albumin IV administered x1; SBP now 90 0.9 NSB 500 mL bolus x1 in ED Makes trace amt of urine. Per nursing facility patient makes small amounts of urine Last dialysis; no fluid removal was 05/03/22 Cardiology and nephrology consulted; discussed with Dr. Lanza. 05/05 - Need for dialysis. Patient hypotensive in ED yesterday, currently on BiPAP. Per nephrology patient may need ICU. Contacted devulcanizer charger, plan for transfer to ICU for now. Patient is alert awake, tolerating BiPAP well. Feels weak but otherwise has no complaints at this time. 05/06 overnight patient in ICU developed A. fib with RVR. Amiodarone infusion was started. Currently laying in bed, in no acute distress. She is able to answer simple questions appropriately. Heart rate is still elevated but improved. Cardiology following. 05/07 patient had dialysis last evening. Amiodarone infusion stopped. Patient restarted on metoprolol-plan to uptitrate to home dose 05/08 heart rate better controlled, however still tachycardic. Currently on metoprolol. 05/10 Currently on 2L of suppl. O2, HR continues to be elevated, BP on lower side Palliative consult placed as patient with multiple comorbid conditions and general goals of care conversation would be helpful. Influenza A: renal dose Tamiflu initially - but pt out of window and so stopped Procalcitonin negative Continue with antibiotic treatment Concern for aspiration - switch cefepime to unasyn Shingles - rash noted at left axilla - valtrex renally dose started CAD: Atrial fibrillation with RVR: Not on any anticoagulation Metoprolol note different dosing on HD days; was on hold for hypotension Cardiology consulted -restarted metoprolol, plan to up-titrate to home dose History of seizure disorder: cont. Keppra Dyslipidemia: cont. Atorvastatin Gout: cont. Allopurinol Depression and Anxiety: Resume Mertazapime Takes Trazadone (2 week trial to complete 05/09 per OP records); held on admission due to somnolence Disposition: PCP: Dr. Cerda CODE STATUS: DNR/DNI VTE prophylaxis: heparin subq Admission and Anticipated Discharge Date Admission Date: May 04, 2022 Subjective Pt seen in follow-up for hypoxic respiratory failure, CHF, end-stage renal disease on dialysis, Positive for RSV, and influenza, also + shingles Currently laying in bed, in no acute distress, on supplemental oxygen 2L via nasal cannula She is awake and alert, able to answer simple questions appropriately. Heart rate continues to be somewhat elevated, BP on lower side Pt reports feeling much better Denies chest pain, shortness of breath, reports feeling weak and tired, she does have cough Will repeat CXR Encouraged flutter valve, incent. spirometer Discussed w/ nephrology - need for cardiology input re: tachycardia control. Review of Systems Review of Systems: All systems reviewed & are unremarkable except as noted in Subjective Physical Exam Physical Exam: General: Elderly female, obese, on suppl. O2 2L via NC HEENT: head normocephalic, moist mucus membranes CV: irregularly irregular, tachycardic (-) M/G/R, (-) edema Resp: + crackles GI: Abdomen soft, +obese, NT/ND Musculoskeletal: moves extremities Neuro: Awake alert. Able to answer simple questions. Moves extremities. Skin: (-) rashes , (-) erythema. Results & Data Results & Data ([facility]) Vital Signs (Past 12 Hours) Vital Signs Temp Pulse Pulse Resp BP Pulse Ox O2 Del Method 05/10/22 08:05 36.6 C 121 H 18 94/60 L 100 Nasal Cannula 05/10/22 07:00 Nasal Cannula 05/10/22 03:20 36.6 C 113 H 18 114/70 99 Nasal Cannula 05/09/22 22:56 36.6 C 126 H 18 96/59 L 100 Nasal Cannula O2 Flow Rate 05/10/22 08:05 2 05/10/22 07:00 2 01/10/23 03:20 2 05/09/22 22:56 2 Laboratory Results 05/10/22 05/09/22 Range/Units 07:20 13:03 Sodium 140 (136-145) mmol/L Potassium 3.4 L (3.5-5.1) mmol/L Chloride 102 (98-107) mmol/L Carbon Dioxide 30 (21-32) mmol/L Anion Gap 8 (3-11) BUN 19 (6-23) mg/dl Creatinine 4.28 H D (0.6-1.2) mg/dl Est Cr Clr Drug Dosing 11.1 ml/min Est GFR ( Amer) 10.8 ml/min Est GFR (Non-Af Amer) 9.3 ml/min BUN/Creatinine Ratio 4.4 L (10-20) Glucose 99 (70-99(Fasting)) mg/dl Calcium 9.0 (8.5-10.1) mg/dl Hep Bs Antigen Pending Hep Bs Ag Confirmation Pending Medications Administered Current Inpatient Medications Acetaminophen (Acetaminophen 325 Mg Tab) 650 mg PO Q4H PRN PRN Reason: Pain or Fever Stop: 06/03/22 13:57 Al Hydrox/Mg Hydrox/Simethicone (Aluminum/Magnesium Susp 30 Ml Udc) 15 ml PO Q4H PRN PRN Reason: Dyspepsia Stop: 06/03/22 13:57 Allopurinol (Allopurinol 300 Mg Tab) 450 mg PO DAILY [facility] Stop: 06/07/22 08:59 Last Admin: 05/10/22 09:03 Dose: 450 mg Aspirin (Aspirin 81 Mg Ectab) 162 mg PO DAILY [facility] Stop: 06/04/22 08:59 Last Admin: 05/10/22 09:03 Dose: 162 mg Atorvastatin Calcium (Atorvastatin 40 Mg Tab) 80 mg PO DAILY [facility] Stop: 06/07/22 08:59 Last Admin: 05/10/22 09:03 Dose: 80 mg Doxycycline Hyclate (Doxycycline Hyclate 100 Mg Cap) 100 mg PO BID [facility] Stop: 05/11/22 20:59 Last Admin: 05/10/22 09:03 Dose: 100 mg Guaifenesin (Guaifenesin Sugar Free 200 Mg/10 Ml Udc) 200 mg PO Q6H [facility] Stop: 06/07/22 11:14 Last Admin: 05/10/22 05:23 Dose: Not Given Heparin Sodium (Porcine) (Heparin Sod 5,000 Unit/0.5 Ml Vial) 5,000 units SQ Q12 [facility] Stop: 06/07/22 20:59 Last Admin: 05/10/22 09:11 Dose: 5,000 units Ampicillin Sodium/Sulbactam Sodium 3,000 mg/ Sodium Chloride 108 mls @ 200 mls/hr IV Q12H [facility]; Protocol Stop: 05/16/22 10:59 Last Infusion: 05/09/22 23:35 Dose: Infused Levalbuterol HCl (Levalbuterol Hcl 0.63 Mg/3 Ml Neb) 0.63 mg NEB Q6R PRN; Protocol PRN Reason: Shortness Of Breath Or Wheezing Stop: 06/03/22 18:59 Levetiracetam (Levetiracetam 500 Mg Tab) 500 mg PO MoWeFr@0900,1400,2100 [facility] Stop: 06/05/22 08:59 Last Admin: 05/09/22 20:46 Dose: 500 mg Levetiracetam (Levetiracetam 500 Mg Tab) 500 mg PO SuTuThSa@0900,2100 [facility] Stop: 06/06/22 08:59 Last Admin: 05/10/22 09:03 Dose: 500 mg Lidocaine/Prilocaine (Lidocaine/Prilocaine 2.5% Ea Crm) 1 each EXT MoWeFr@0900 [facility] Stop: 06/03/22 15:59 Last Admin: 05/09/22 10:21 Dose: 1 each Magnesium Hydroxide (Magnesium Hydroxide Susp 30 Ml Udc) 30 ml PO Q12H PRN PRN Reason: Constipation Stop: 06/03/22 13:57 Metoprolol Succinate (Metoprolol Succ 50mg Ext Rel Tab) 50 mg PO BID [facility] Stop: 06/09/22 08:59 Last Admin: 05/10/22 09:03 Dose: 50 mg Metoprolol Tartrate (Metoprolol Tartrate 25 Mg Tab) 25 mg PO QAM [facility] Stop: 06/07/22 11:44 Last Admin: 05/08/22 19:54 Dose: 25 mg Mirtazapine (Mirtazapine Tab 15 Mg Tab) 15 mg PO QPM [facility] Stop: 06/08/22 20:59 Last Admin: 05/09/22 20:45 Dose: 15 mg Lanthanum Carbonate: Non-Formulary Patient's Own Med 1 each PO TIDM [facility] Stop: 06/08/22 11:59 Last Admin: 05/10/22 09:00 Dose: 1 ea Nystatin (Nystatin Powder 15gm Btl) 1 appln EXT BID [facility] Stop: 06/07/22 20:59 Last Admin: 05/10/22 09:11 Dose: 1 appln Ondansetron HCl (Ondansetron Inj 2 Mg/Ml 2 Ml Vial) 4 mg IV Q6H PRN PRN Reason: Nausea Stop: 06/03/22 13:57 Last Admin: 05/06/22 21:10 Dose: 4 mg Polyethylene Glycol (Polyethylene (Miralax) 17 Gm Pack) 17 gm PO DAILY PRN PRN Reason: Constipation Stop: 06/03/22 13:57 Potassium Chloride (Potassium Chloride Pwd 20 Meq Pack) 20 meq PO ONE ONE Stop: 05/10/22 09:23 Valacyclovir HCl (Valacyclovir Hcl 500 Mg Tablet) 500 mg PO Q24H [facility] Stop: 05/16/22 10:59 Last Admin: 05/09/22 14:37 Dose: 500 mg (1) CAD (coronary artery disease) Associated angina: without angina Coronary Disease-Associated Artery/Lesion type: unspecified vessel or lesion type [place] vs. transplanted heart: [place] heart Qualified Code(s): I25.10 - Atherosclerotic heart disease of [place] coronary artery without angina pectoris
[2022-05-10] MEDS ORDERED: POTASSIUM CHLORIDE PWD 20 MEQ PACK PO ONE (09:30)
--- NOTE | 2022-05-10 09:52 | Nephrology Progress Note ---
Date of Service May 10, 2022 Assessment & Plan Admission and Anticipated Discharge Date Admission Date: May 04, 2022 Subjective Assessment & Plan (1) ESRD (end stage renal disease) on dialysis: Plan: Dialysis yesterday for 3 hrs and took off 2 kilo. Still has Pulm edema so will try hard with UF. However BP has been an issue. Afibb with RVR--HR > 110. However BP is low and HR is fast even without dialysis. will ask cards to see if anything else can be done for this Afibb with RVR. Such persistent tachycardia will make pulm edema worse (2) Respiratory failure with hypoxia and hypercapnia: Plan: improving/stabilized and multifactorial; appreciate critical care and cardiology evals. BL pl effusions new large WMA and diminished EF to 40% w/ PASP 75/stiff IVC (3) Goals of care, counseling/discussion: Plan: pt has had very challenging 2 mos clinically and is debilitated from over a month of serial/ongoing respiratory infections; agrees to pressors but not to intubation; does agree to cardiac meds Appreciate palliative and other teams' work at goals of care w/ her Subjective yesteray had Dialysis. 2 kilo removed. BP is low and HR is fast even without dialysis On 2 liter o2 now--gets o2 at home also. Review of Systems Review of Systems: All systems reviewed & are unremarkable except as noted in Subjective Physical Exam Constitutional: well developed, well nourished, + frail appearing and cooperative; no acute distress Eyes: EOM intact bilaterally ENMT: Ears: no external ear abnormality Nose: no external nose abnormality Mouth: + dry oral mucous membranes Neck: no nuchal rigidity Respiratory: normal respiratory effort (on 02NC) Auscultation: + diminished lung sounds Cardiovascular: Rate/Rhythm: + tachycardic and + irregularly irregular Extremities: + AV fistula (LUE + t/b); no edema (BLE and improved on BUE) Gastrointestinal (Abdomen): Inspection/Auscultation: normal bowel sounds Percussion/Palpation: abdomen soft; abdomen nontender Musculoskeletal: Extremities: strength 5/5 throughout Skin: no rashes, warm and dry Psychiatric: Orientation: oriented to person, oriented to place and cooperative Results & Data ([facility]) Vital Signs (Past 12 Hours) Vital Signs Temp Pulse Pulse Resp BP Pulse Ox O2 Del Method 05/10/22 08:05 36.6 C 121 H 18 94/60 L 100 Nasal Cannula 05/10/22 07:00 Nasal Cannula 05/10/22 03:20 36.6 C 113 H 18 114/70 99 Nasal Cannula 05/09/22 22:56 36.6 C 126 H 18 96/59 L 100 Nasal Cannula O2 Flow Rate 05/10/22 08:05 2 05/10/22 07:00 2 05/10/22 03:20 2 05/09/22 22:56 2
[2022-05-10] MEDS: valACYclovir HCL 500 MG TABLET PO SCH (10:52)
[2022-05-10] MEDS: AMPICILLIN/SULBACTAM SOD 3,000 MG in 0.9 % SODIUM CHLORIDE 100 ML IV SCH ×2 (10:55→22:33)
--- NOTE | 2022-05-10 12:58 | XRay Report ---
XR chest 1V portable CLINICAL HISTORY: follow up COMPARISON STUDY: Chest CT May 05, 2022. Chest radiograph May 09, 2022. FINDINGS: Fracture through the left greater tuberosity is unchanged. There is no pneumothorax. Bilate ral pleural effusions and associated bibasilar opacities are again noted. Left basilar opacity has sl ightly increased. Pulmonary edema has slightly improved. Cardiomediastinal silhouette is stable. Line ar left midlung opacity favors atelectasis. IMPRESSION: 1. Interstitial pulmonary edema, slightly improved since prior exam. 2. Persistent bilateral pleural effusions and associated bibasilar opacities. ACT 112: Negative or not required by law. Electronically signed by: Andrews Gauthier M.D. 05/10/2022 12:56 PM
--- NOTE | 2022-05-10 15:00 | Cardiology Progress Note ---
Date of Service May 10, 2022 Assessment & Plan (1) Chronic atrial fibrillation: (2) Contraindication to anticoagulation therapy: (3) Coronary artery disease: (4) Hypertensive heart disease: (5) Pulmonary hypertension: (6) Sleep apnea: (7) Chronic right heart failure: (8) Cerebral amyloid angiopathy: (9) Non-traumatic intracerebral ventricular hemorrhage: (10) End stage renal disease: Plan Persistent atrial fibrillation with elevated ventricular response rate. Exam d oes not suggest profound volume overload. Suspect component of interstitial/viral lung disease in addition to pulmonary edema Would continue metoprolol succinate 50 mg twice per day We will add digoxin 0.25 mg now and in 4 hours then 0.125 mg Monday. Exams but suggest patient approaching dry weight despite cough and shortness of breath Admission and Anticipated Discharge Date Admission Date: May 04, 2022 Subjective Patient seen and examined, chart, medications, telemetry reviewed Patient working with physical therapy in room. Denies any acute complaints but still with rhonchorous cough. Review rhythms demonstrates persistent atrial fibrillation with variable heart rates. Notes elevated heart rates especially during dialysis No fevers chills no orthopnea No sputum production but significant cough especially with forced exhalation Review of Systems Review of Systems: All systems reviewed & are unremarkable except as noted in Subjective Physical Exam Constitutional: + ill appearing and + thin Eyes: PERRL, conjunctivae normal, anicteric sclerae Respiratory: + cough Auscultation: + rhonchi and + bronchovesicular breath sounds Cardiovascular: Rate/Rhythm: + tachycardic and + irregularly irregular Gastrointestinal (Abdomen): normal bowel sounds, soft, nontender, no hepatosplenomegaly Results & Data ([facility]) Vital Signs (Past 12 Hours) Vital Signs Temp Pulse Pulse Resp BP Pulse Ox O2 Del Method 05/10/22 11:42 36.5 C 108 H 19 104/70 98 Nasal Cannula 05/10/22 08:05 36.6 C 121 H 18 94/60 L 100 Nasal Cannula 05/10/22 07:00 Nasal Cannula 05/10/22 03:20 36.6 C 113 H 18 114/70 99 Nasal Cannula O2 Flow Rate 05/10/22 11:42 2 05/10/22 08:05 2 05/10/22 07:00 2 05/10/22 03:20 2 Laboratory Results Laboratory Results - last 24 hr 05/10/22 05/10/22 07:20 07:29 Sodium 140 Potassium 3.4 L Chloride 102 Carbon Dioxide 30 Anion Gap 8 BUN 19 Creatinine 4.28 H D Est Cr Clr Drug Dosing 11.1 Est GFR ( Amer) 10.8 Est GFR (Non-Af Amer) 9.3 BUN/Creatinine Ratio 4.4 L Glucose 99 Calcium 9.0 Procalcitonin 0.38
[2022-05-10] MEDS ORDERED: DIGOXIN 0.125 MG TAB PO ONE ×2 (15:12→20:00)
[2022-05-10] MEDS: MIRTAZAPINE TAB 15 MG TAB PO SCH (21:59)
[2022-05-11] MEDS: guaiFENesin SUGAR FREE 200 MG/10 ML UDC PO SCH ×3 (05:50→18:30)
[2022-05-11 06:37] LABS: Hematocrit (blood only) 37.3 % (34.1-44.9); Hemoglobin 12.1 g/dl (12.0-16.0); Mean Corpuscular Hemoglobin 32.4 pg (25.0-34.0); Mean Corpuscular Hgb Conc 32.4 g/dL (32.0-36.0); Mean Corpuscular Volume 99.7 fL (80.0-100.0); Mean Platelet Volume 12.8 fL (9.4-12.3); Platelet Count 157 K/uL (130-400); RDW Coefficient of Variation 17.2 % (11.5-14.5); RDW Standard Deviation 61.9 fL (36.4-46.3); Red Blood Count 3.74 M/uL (3.93-5.22)
[2022-05-11] MEDS ORDERED: SODIUM CHLORIDE 0.9% 1000ML 1,000 ML IV PRN (07:00)
[2022-05-11 07:11] LABS: BUN Creatinine Ratio 4.5 (10-20); Calcium 9.3 mg/dl (8.5-10.1); Creatinine Clr Calc Pharmacy 8.5 ml/min; Est GFR (African American) 7.9 ml/min; Est GFR (Non-African American) 6.8 ml/min; Potassium 3.8 mmol/L (3.5-5.1)
[2022-05-11] MEDS: ATORVASTATIN 40 MG TAB PO SCH (07:58)
[2022-05-11] MEDS: DOXYCYCLINE HYCLATE 100 MG CAP PO SCH (07:58)
[2022-05-11] MEDS: LANTHANUM CARBONATE PO SCH ×3 (07:59→18:30)
[2022-05-11] MEDS: levETIRAcetam 500 MG TAB PO SCH ×3 (07:59→20:57)
[2022-05-11] MEDS: HEPARIN SOD 5,000 UNIT/0.5 ML VIAL SQ SCH ×2 (07:59→20:58)
[2022-05-11] MEDS: ASPIRIN 81 MG ECTAB PO SCH (07:59)
[2022-05-11] MEDS: allopurinoL 300 MG TAB PO SCH (07:59)
[2022-05-11] MEDS: METOPROLOL SUCC 50MG EXT REL TAB PO SCH ×2 (08:00→20:56)
[2022-05-11] MEDS: LIDOCAINE/PRILOCAINE 2.5% EA CRM EXT SCH (08:00)
[2022-05-11] MEDS: NYSTATIN POWDER 15GM BTL EXT SCH ×2 (08:00→20:58)
--- NOTE | 2022-05-11 08:08 | Hospitalist Progress Note ---
Date of Service May 11, 2022 Assessment & Plan (1) Cardiorenal syndrome with renal failure: (2) Influenza A: (3) Pulmonary edema: (4) Seizure disorder: (5) Atrial fibrillation with rapid ventricular response: (6) CAD (coronary artery disease): (7) Dyslipidemia: (8) DM type 2 (diabetes mellitus, type 2): (9) GERD (gastroesophageal reflux disease): Plan Cardiorenal syndrome with renal failure: Pulmonary edema: CXR: Cardiomegaly with evidence of congestive failure; pulmonary edema. Correlate clinically for evidence of a superimposed infectious/inflammatory pneumonitis; Small pleural effusions. Patient hypotensive in ED; 70/50 (55); albumin IV administered x1; SBP now 90 0.9 NSB 500 mL bolus x1 in ED Makes trace amt of urine. Per nursing facility patient makes small amounts of urine Last dialysis; no fluid removal was 05/03/22 Cardiology and nephrology consulted; discussed with Dr. Lanza. 05/05 - Need for dialysis. Patient hypotensive in ED yesterday, currently on BiPAP. Per nephrology patient may need ICU. Contacted door attendant, plan for transfer to ICU for now. Patient is alert awake, tolerating BiPAP well. Feels weak but otherwise has no complaints at this time. 05/06 overnight patient in ICU developed A. fib with RVR. Amiodarone infusion was started. Currently laying in bed, in no acute distress. She is able to answer simple questions appropriately. Heart rate is still elevated but improved. Cardiology following. 05/07 patient had dialysis last evening. Amiodarone infusion stopped. Patient restarted on metoprolol-plan to uptitrate to home dose 05/08 heart rate better controlled, however still tachycardic. Currently on metoprolol. 05/10 Currently on 2L of suppl. O2, HR continues to be elevated, BP on lower side 05/11 continues to be on 2 L of supplemental oxygen, has cough, heart rate better controlled, plan for dialysis later today Palliative consult placed as patient with multiple comorbid conditions and general goals of care conversation would be helpful. Influenza A: renal dose Tamiflu initially - but pt out of window and so stopped Procalcitonin negative Continue with antibiotic treatment Concern for aspiration - switched cefepime to unasyn, cont. doxy Shingles - rash noted at left axilla - valtrex renally dose started, will cont. CAD: Atrial fibrillation with RVR: Not on any anticoagulation Metoprolol succinate 50 mg bid Cardiology consulted -restarted metoprolol, added digoxin History of seizure disorder: cont. Keppra Dyslipidemia: cont. Atorvastatin Gout: cont. Allopurinol Depression and Anxiety: Resumed Mertazapime Takes Trazadone (2 week trial to complete 05/09 per OP records); held on admission due to somnolence Disposition: PCP: Dr. Cerda CODE STATUS: DNR/DNI VTE prophylaxis: heparin subq Admission and Anticipated Discharge Date Admission Date: May 04, 2022 Subjective Pt seen in follow-up for hypoxic respiratory failure, CHF, end-stage renal disease on dialysis, Positive for RSV, and influenza, also + shingles Currently laying in bed, in no acute distress, on supplemental oxygen 2L via na diony cannula She is awake and alert, able to answer simple questions appropriately. Pt reports feeling tired and weak Denies chest pain, shortness of breath, + cough Encouraged flutter valve, incent. spirometer Discussed w/ nephrology and cardiology. HD later today. cont. w/ addition of digoxin w/ metoprolol Review of Systems Review of Systems: All systems reviewed & are unremarkable except as noted in Subjective Physical Exam Physical Exam: General: Elderly female, obese, on suppl. O2 2L via NC HEENT: head normocephalic, moist mucus membranes CV: irregularly irregular, tachycardic (-) M/G/R, (-) edema Resp: + crackles, + rhonchi , +cough GI: Abdomen soft, +obese, NT/ND Musculoskeletal: moves extremities Neuro: Awake alert. Able to answer simple questions. Moves extremities. Skin: (+) rash at Left axilla , (-) erythema. Results & Data Results & Data ([facility]) Vital Signs (Past 12 Hours) Vital Signs Temp Pulse Pulse Pulse Resp BP Pulse Ox 05/11/22 07:32 36.5 C 106 H 20 103/53 L 97 05/11/22 02:46 36.2 C L 110 H 90/57 L 98 05/10/22 22:00 108 H 05/10/22 22:36 36.9 C 119 H 18 102/67 92 O2 Del Method O2 Flow Rate 05/11/22 07:32 Nasal Cannula 2 05/11/22 02:46 Nasal Cannula 2 05/10/22 22:00 05/10/22 22:36 Nasal Cannula 2 Laboratory Results 05/11/22 05/11/22 05/10/22 Range/Units 06:01 06:01 07:29 WBC 8.70 (4.8-10.8) K/ul RBC 3.74 L (3.93-5.22) M/uL Hgb 12.1 (12.0-16.0) g/dl Hct 37.3 (34.1-44.9) % MCV 99.7 (80.0-100.0) fL MCH 32.4 (25.0-34.0) pg MCHC 32.4 (32.0-36.0) g/dL RDW Std Deviation 61.9 H (36.4-46.3) fL RDW Coeff of Edin 17.2 H (11.5-14.5) % Plt Count 157 (130-400) K/uL MPV 12.8 H (9.4-12.3) fL Sodium 141 (136-145) mmol/L Potassium 3.8 (3.5-5.1) mmol/L Chloride 103 (98-107) mmol/L Carbon Dioxide 30 (21-32) mmol/L Anion Gap 8 (3-11) BUN 25 H (6-23) mg/dl Creatinine 5.55 H* D (0.6-1.2) mg/dl Est Cr Clr Drug Dosing 8.5 ml/min Est GFR ( Amer) 7.9 ml/min Est GFR (Non-Af Amer) 6.8 ml/min BUN/Creatinine Ratio 4.5 L (10-20) Glucose 88 (70-99(Fasting)) mg/dl Calcium 9.3 (8.5-10.1) mg/dl Procalcitonin 0.38 (0-0.5) ng/ml 05/10/22 Range/Units 07:20 WBC (4.8-10.8) K/ul RBC (3.93-5.22) M/uL Hgb (12.0-16.0) g/dl Hct (34.1-44.9) % MCV (80.0-100.0) fL MCH (25.0-34.0) pg MCHC (32.0-36.0) g/dL RDW Std Deviation (36.4-46.3) fL RDW Coeff of Edin (11.5-14.5) % Plt Count (130-400) K/uL MPV (9.4-12.3) fL Sodium 140 (136-145) mmol/L Potassium 3.4 L (3.5-5.1) mmol/L Chloride 102 (98-107) mmol/L Carbon Dioxide 30 (21-32) mmol/L Anion Gap 8 (3-11) BUN 19 (6-23) mg/dl Creatinine 4.28 H D (0.6-1.2) mg/dl Est Cr Clr Drug Dosing 11.1 ml/min Est GFR ( Amer) 10.8 ml/min Est GFR (Non-Af Amer) 9.3 ml/min BUN/Creatinine Ratio 4.4 L (10-20) Glucose 99 (70-99(Fasting)) mg/dl Calcium 9.0 (8.5-10.1) mg/dl Procalcitonin (0-0.5) ng/ml Medications Administered Current Inpatient Medications Acetaminophen (Acetaminophen 325 Mg Tab) 650 mg PO Q4H PRN PRN Reason: Pain or Fever Stop: 06/03/22 13:57 Al Hydrox/Mg Hydrox/Simethicone (Aluminum/Magnesium Susp 30 Ml Udc) 15 ml PO Q4H PRN PRN Reason: Dyspepsia Stop: 06/03/22 13:57 Allopurinol (Allopurinol 300 Mg Tab) 450 mg PO DAILY [facility] Stop: 06/07/22 08:59 Last Admin: 05/11/22 07:59 Dose: 450 mg Aspirin (Aspirin 81 Mg Ectab) 162 mg PO DAILY [facility] Stop: 06/04/22 08:59 Last Admin: 05/11/22 07:59 Dose: 162 mg Atorvastatin Calcium (Atorvastatin 40 Mg Tab) 80 mg PO DAILY [facility] Stop: 06/07/22 08:59 Last Admin: 05/11/22 07:58 Dose: 80 mg Doxycycline Hyclate (Doxycycline Hyclate 100 Mg Cap) 100 mg PO BID [facility] Stop: 05/11/22 20:59 Last Admin: 05/11/22 07:58 Dose: 100 mg Guaifenesin (Guaifenesin Sugar Free 200 Mg/10 Ml Udc) 200 mg PO Q6H [facility] Stop: 06/07/22 11:14 Last Admin: 05/11/22 05:50 Dose: 200 mg Heparin Sodium (Porcine) (Heparin Sod 5,000 Unit/0.5 Ml Vial) 5,000 units SQ Q12 [facility] Stop: 06/07/22 20:59 Last Admin: 05/11/22 07:59 Dose: 5,000 units Ampicillin Sodium/Sulbactam Sodium 3,000 mg/ Sodium Chloride 108 mls @ 200 mls/hr IV Q12H [facility]; Protocol Stop: 05/16/22 10:59 Last Infusion: 05/10/22 23:06 Dose: Infused Sodium Chloride (Nss 1000ml) 1,000 mls @ 0 mls/hr IV .Q0M PRN PRN Reason: For Hemodialysis Use ONLY Stop: 05/11/22 12:59 Levalbuterol HCl (Levalbuterol Hcl 0.63 Mg/3 Ml Neb) 0.63 mg NEB Q6R PRN; Protocol PRN Reason: Shortness Of Breath Or Wheezing Stop: 06/03/22 18:59 Levetiracetam (Levetiracetam 500 Mg Tab) 500 mg PO MoWeFr@0900,1400,2100 [facility] Stop: 06/05/22 08:59 Last Admin: 05/11/22 07:59 Dose: 500 mg Levetiracetam (Levetiracetam 500 Mg Tab) 500 mg PO SuTuThSa@0900,2100 [facility] Stop: 06/06/22 08:59 Last Admin: 05/10/22 21:59 Dose: 500 mg Lidocaine/Prilocaine (Lidocaine/Prilocaine 2.5% Ea Crm) 1 each EXT MoWeFr@0900 [facility] Stop: 06/03/22 15:59 Last Admin: 05/11/22 08:00 Dose: 1 each Magnesium Hydroxide (Magnesium Hydroxide Susp 30 Ml Udc) 30 ml PO Q12H PRN PRN Reason: Constipation Stop: 06/03/22 13:57 Metoprolol Succinate (Metoprolol Succ 50mg Ext Rel Tab) 50 mg PO BID [facility] Stop: 06/09/22 08:59 Last Admin: 05/11/22 08:00 Dose: 50 mg Metoprolol Tartrate (Metoprolol Tartrate 25 Mg Tab) 25 mg PO QAM [facility] Stop: 06/07/22 11:44 Last Admin: 05/08/22 19:54 Dose: 25 mg Mirtazapine (Mirtazapine Tab 15 Mg Tab) 15 mg PO QPM [facility] Stop: 06/08/22 20:59 Last Admin: 05/10/22 21:59 Dose: 15 mg Lanthanum Carbonate: Non-Formulary Patient's Own Med 1 each PO TIDM [facility] Stop: 06/08/22 11:59 Last Admin: 05/11/22 07:59 Dose: 1 ea Nystatin (Nystatin Powder 15gm Btl) 1 appln EXT BID [facility] Stop: 06/07/22 20:59 Last Admin: 05/11/22 08:00 Dose: 1 appln Ondansetron HCl (Ondansetron Inj 2 Mg/Ml 2 Ml Vial) 4 mg IV Q6H PRN PRN Reason: Nausea Stop: 06/03/22 13:57 Last Admin: 05/06/22 21:10 Dose: 4 mg Polyethylene Glycol (Polyethylene (Miralax) 17 Gm Pack) 17 gm PO DAILY PRN PRN Reason: Constipation Stop: 06/03/22 13:57 Valacyclovir HCl (Valacyclovir Hcl 500 Mg Tablet) 500 mg PO Q24H [facility] Stop: 05/16/22 10:59 Last Admin: 05/10/22 10:52 Dose: 500 mg (1) CAD (coronary artery disease) Associated angina: without angina Coronary Disease-Associated Artery/Lesion type: unspecified vessel or lesion type [place] vs. transplanted heart: [place] heart Qualified Code(s): I25.10 - Atherosclerotic heart disease of [place] coronary artery without angina pectoris
[2022-05-11 10:32] LABS: HBSAG NON-REACTIVE (NON-REACTIVE)
--- NOTE | 2022-05-11 11:45 | Dialysis Progress Note ---
Date of Service May 11, 2022 Assessment & Plan Admission and Anticipated Discharge Date Admission Date: May 04, 2022 Subjective [id number] Dialysis Progress Note Signed Patient:BRIAN SCOTT Admit Date:05/04/22 MR#:[id number] Att Phy:Jose Child MD Acct ID:[id number] Raquel Phy:Cristiano Cerda MD Date:1945 Fam Phy: Age:76 Location:2S Sex:F Room/Bed:S233-1 cc: ~ *NOTICE TO RECEIVING REPUBLICAN/AGENCY This information is strictly Confidential and protected under [place] law. [place] law prohibits you from making any further disclosure of this information unless further disclosure is expressly permitted by the written consent of the person to whom it pertains or is authorized by law. A general authorization for the release of medical or other information is not sufficient for this purpose. Hospital accepts no responsibility if the information is made available to any other person, INCLUDING THE PATIENT. Date of Service May 09, 2022 Assessment & Plan Admission and Anticipated Discharge Date Admission Date: May 04, 2022 Subjective Assessment & Plan (1) ESRD (end stage renal disease) on dialysis: Plan: Dialysis today for 3 hrs and trying about 2 off if we can. 3 K bath However BP has been an issue. Afibb with RVR--HR > 110. Cards note from 05/10 reviewed and apperictaed. (2) Respiratory failure with hypoxia and hypercapnia: Plan: improving/stabilized and multifactorial; appreciate critical care and cardiology evals. BL pl effusions new large WMA and diminished EF to 40% w/ PASP 75/stiff IVC (3) Goals of care, counseling/discussion: Plan: pt has had very challenging 2 mos clinically and is debilitated from over a month of serial/ongoing respiratory infections; agrees to pressors but not to intubation; does agree to cardiac meds -appreciate palliative and other teams' work at goals of care w/ her Subjective Seen during Dialysis. So far feels fine.BP and HR both about 100. AVF fine On 2 liter o2 now--gets o2 at home also. Review of Systems Review of Systems: All systems reviewed & are unremarkable except as noted in Subjective Physical Exam Constitutional: well developed, well nourished, + frail appearing and cooperative; no acute distress Eyes: EOM intact bilaterally ENMT: Ears: no external ear abnormality Nose: no external nose abnormality Mouth: + dry oral mucous membranes Neck: no nuchal rigidity Respiratory: normal respiratory effort (on 02NC) Auscultation: + diminished lung sounds Cardiovascular: Rate/Rhythm: + tachycardic and + irregularly irregular Extremities: + AV fistula (LUE + t/b); no edema (BLE and improved on BUE) Gastrointestinal (Abdomen): Inspection/Auscultation: normal bowel sounds Percussion/Palpation: abdomen soft; abdomen nontender Musculoskeletal: Extremities: strength 5/5 throughout Skin: no rashes, warm and dry Psychiatric: Orientation: oriented to person, oriented to place and cooperative Results & Data ([facility]) Vital Signs (Past 12 Hours) Vital Signs Temp Pulse Pulse Pulse Resp BP BP 05/11/22 11:30 102 H 117/62 05/11/22 11:00 103 H 119/69 05/11/22 10:49 36.5 C 98 H 109/71 05/11/22 10:36 36.5 C 105 H 05/11/22 08:00 91 H 05/11/22 07:32 36.5 C 106 H 20 103/53 L 05/11/22 02:46 36.2 C L 110 H 90/57 L Pulse Ox O2 Del Method O2 Flow Rate 05/11/22 11:30 05/11/22 11:00 05/11/22 10:49 05/11/22 10:36 05/11/22 08:00 05/11/22 07:32 97 Nasal Cannula 2 05/11/22 02:46 98 Nasal Cannula 2
--- NOTE | 2022-05-11 14:20 | Cardiology Progress Note ---
Date of Service May 11, 2022 Assessment & Plan (1) Chronic atrial fibrillation: (2) Acute on chronic respiratory failure with hypoxemia: (3) ESRD (end stage renal disease) on dialysis: Plan Plan to continue to treat atrial fibrillation. Exam does not suggest significant volume overload though still with rhonchorous cough likely driving heart rate in association with respiratory distress and hypoxia Will continue metoprolol succinate as ordered 50 mg twice per day Additional dose of digoxin 0.25 mg orally today. No bradycardia arrhythmias or significant slowing. Not quite yet at loading dose Will begin dialysis adjusted dose likely tomorrow Admission and Anticipated Discharge Date Admission Date: May 04, 2022 Subjective Patient seen and examined, chart, medications telemetry reviewed. Remains in atrial fibrillation with a variable heart rate. Has slowed slightly with persistent dosing of metoprolol succinate and addition of digoxin. Still with nonproductive but loose rattling cough on forced exhalation Review of Systems Review of Systems: All systems reviewed & are unremarkable except as noted in Subjective Physical Exam Constitutional: + ill appearing; no acute distress Eyes: PERRL, conjunctivae normal, anicteric sclerae Respiratory: Auscultation: + diminished lung sounds and + rhonchi (With cough) Cardiovascular: Rate/Rhythm: + tachycardic and + irregularly irregular Vessels: no JVD Extremities: no edema Results & Data ([facility]) Vital Signs (Past 12 Hours) Vital Signs Temp Pulse Pulse Pulse Resp BP BP 05/11/22 13:30 111 H 115/47 L 05/11/22 13:00 116 H 102/54 L 05/11/22 12:45 108 H 96/61 L 05/11/22 12:37 113 H 91/59 L 05/11/22 12:30 87 95/51 L 05/11/22 12:00 108 H 102/69 05/11/22 11:30 102 H 117/62 05/11/22 07:30 05/11/22 11:00 103 H 119/69 05/11/22 10:49 36.5 C 98 H 109/71 05/11/22 10:36 36.5 C 105 H 05/11/22 08:00 91 H 05/11/22 07:32 36.5 C 106 H 20 103/53 L 05/11/22 02:46 36.2 C L 110 H 90/57 L Pulse Ox O2 Del Method O2 Flow Rate 05/11/22 13:30 05/11/22 13:00 05/11/22 12:45 05/11/22 12:37 05/11/22 12:30 05/11/22 12:00 05/11/22 11:30 05/11/22 07:30 Nasal Cannula 2 05/11/22 11:00 05/11/22 10:49 05/11/22 10:36 05/11/22 08:00 05/11/22 07:32 97 Nasal Cannula 2 05/11/22 02:46 98 Nasal Cannula 2 Laboratory Results Laboratory Results - last 24 hr 05/09/22 05/11/22 05/11/22 13:03 06:01 06:01 WBC 8.70 RBC 3.74 L Hgb 12.1 Hct 37.3 MCV 99.7 MCH 32.4 MCHC 32.4 RDW Std Deviation 61.9 H RDW Coeff of Edin 17.2 H Plt Count 157 MPV 12.8 H Sodium 141 Potassium 3.8 Chloride 103 Carbon Dioxide 30 Anion Gap 8 BUN 25 H Creatinine 5.55 H* D Est Cr Clr Drug Dosing 8.5 Est GFR ( Amer) 7.9 Est GFR (Non-Af Amer) 6.8 BUN/Creatinine Ratio 4.5 L Glucose 88 Calcium 9.3 Hep Bs Antigen NON-REACTIVE Hep Bs Ag Confirmation TNP
[2022-05-11] MEDS: AMPICILLIN/SULBACTAM SOD 3,000 MG in 0.9 % SODIUM CHLORIDE 100 ML IV SCH ×2 (15:20→23:22)
[2022-05-11] MEDS ORDERED: DIGOXIN 0.125 MG TAB PO ONE (16:00)
[2022-05-11] MEDS: valACYclovir HCL 500 MG TABLET PO SCH (18:30)
[2022-05-11] MEDS: MIRTAZAPINE TAB 15 MG TAB PO SCH (20:57)
[2022-05-12] MEDS: guaiFENesin SUGAR FREE 200 MG/10 ML UDC PO SCH ×5 (06:03→19:51)
[2022-05-12] MEDS: ATORVASTATIN 40 MG TAB PO SCH (08:46)
[2022-05-12] MEDS: allopurinoL 300 MG TAB PO SCH (08:46)
[2022-05-12] MEDS: HEPARIN SOD 5,000 UNIT/0.5 ML VIAL SQ SCH ×2 (08:47→19:53)
[2022-05-12] MEDS: METOPROLOL SUCC 50MG EXT REL TAB PO SCH ×2 (08:47→19:52)
[2022-05-12] MEDS: LANTHANUM CARBONATE PO SCH ×3 (08:47→17:48)
[2022-05-12] MEDS: ASPIRIN 81 MG ECTAB PO SCH (08:47)
[2022-05-12] MEDS: levETIRAcetam 500 MG TAB PO SCH ×2 (08:47→19:52)
[2022-05-12] MEDS: NYSTATIN POWDER 15GM BTL EXT SCH ×2 (08:48→19:52)
[2022-05-12 09:38] LABS: Calcium 9.2 mg/dl (8.5-10.1); Creatinine Clr Calc Pharmacy 12.2 ml/min; Est GFR (African American) 11.6 ml/min
[2022-05-12 10:05] LABS: Potassium 5.2 mmol/L (3.5-5.1)
[2022-05-12] MEDS: valACYclovir HCL 500 MG TABLET PO SCH (12:32)
[2022-05-12] MEDS: AMPICILLIN/SULBACTAM SOD 3,000 MG in 0.9 % SODIUM CHLORIDE 100 ML IV SCH ×2 (12:33→19:54)
--- NOTE | 2022-05-12 12:37 | Cardiology Progress Note ---
Date of Service May 12, 2022 Assessment & Plan (1) Chronic atrial fibrillation: (2) Acute on chronic respiratory failure with hypoxemia: (3) ESRD (end stage renal disease) on dialysis: Plan Plan to continue to treat atrial fibrillation. Exam does not suggest significant volume overload though still with rhonchorous cough likely driving heart rate in association with respiratory distress and hypoxia Will continue metoprolol succinate as ordered 50 mg twice per day Continue digoxin 0.125 mg p.o. today then Monday Admission and Anticipated Discharge Date Admission Date: May 04, 2022 Subjective Patient seen and examined, chart, medications, telemetry reviewed Blood pressure and heart rate improved No acute cardiac complaints. Still with rhonchorous cough poor inspiratory /respiratory effort Review of Systems Review of Systems: All systems reviewed & are unremarkable except as noted in Subjective Physical Exam Constitutional: + thin; no acute distress Eyes: PERRL, conjunctivae normal, anicteric sclerae Neck: trachea midline, no thyromegaly Respiratory: + cough Auscultation: + diminished lung sounds, + rhonchi (With cough) and + bronchovesicular breath sounds Cardiovascular: Rate/Rhythm: + irregularly irregular Vessels: no JVD Extremities: no edema Gastrointestinal (Abdomen): normal bowel sounds, soft, nontender, no hepatosplenomegaly Results & Data ([facility]) Vital Signs (Past 12 Hours) Vital Signs Temp Pulse Pulse Resp BP Pulse Ox O2 Del Method 05/12/22 11:38 36.8 C 96 H 20 103/71 99 Nasal Cannula 05/12/22 08:10 36.7 C 105 H 20 112/79 99 Nasal Cannula 05/12/22 03:00 36.7 C 113 H 16 121/79 98 Nasal Cannula O2 Flow Rate 05/12/22 11:38 2 05/12/22 08:10 2 05/12/22 03:00 2 Laboratory Results Laboratory Results - last 24 hr 05/12/22 08:16 Sodium 140 Potassium 5.2 H D Chloride 105 Carbon Dioxide 26 Anion Gap 9 BUN 16 Creatinine 4.03 H D Est Cr Clr Drug Dosing 12.2 Est GFR ( Amer) 11.6 Est GFR (Non-Af Amer) 10.0 BUN/Creatinine Ratio 4.0 L Glucose 91 Calcium 9.2
[2022-05-12] MEDS ORDERED: DIGOXIN 0.125 MG TAB PO SCH (16:00)
[2022-05-12] MEDS: MIRTAZAPINE TAB 15 MG TAB PO SCH (19:54)
--- NOTE | 2022-05-12 21:42 | Hospitalist Progress Note ---
Date of Service May 12, 2022 Assessment & Plan (1) Pulmonary edema: Plan: Cardiorenal syndrome with renal failure: Pulmonary edema: per : CXR: Cardiomegaly with evidence of congestive failure; pulmonary edema. Correlate clinically for evidence of a superimposed infectious/inflammatory pneumonitis; Small pleural effusions. Patient hypotensive in ED; 70/50 (55); albumin IV administered x1; SBP now 90 0.9 NSB 500 mL bolus x1 in ED Intially required bipap and was in ICU ON dialyiss apprecitenephrology help Shingles - rash noted at left axilla - valtrex renally dose started, will cont. History of seizure disorder: cont. Keppra Dyslipidemia: cont. Atorvastatin Gout: cont. Allopurinol Depression and Anxiety: Resumed Mertazapime Takes Trazadone (2 week trial to complete 05/09 per OP records); held on admission due to somnolence (2) Influenza A: Plan: out of window for tamiflu (3) Cardiorenal syndrome with renal failure: Plan: as above (4) Atrial fibrillation with rapid ventricular response: Plan: Was on amiodarone intially Not on any anticoagulation Currently on Metoprolol succinate 50 mg bid and digoxin (5) Coronary artery disease: Plan: on statin, aspirin and b marlee Admission and Anticipated Discharge Date Admission Date: May 04, 2022 Subjective Feeling weak and tired wants to go home denies chest pain or sob no nausea no pains afebrile says eating ok Review of Systems Review of Systems: ROS negative Physical Exam Neck: trachea midline, no thyromegaly Respiratory: normal respiratory effort, lungs clear to auscultation Cardiovascular: RRR, no murmur, no edema Gastrointestinal (Abdomen): normal bowel sounds, soft, nontender, no hepatosplenomegaly Skin: no rashes, warm and dry Neurologic: EOMI, NO dysarthria, no facial droop obeys simple commands moves extremities Results & Data Results & Data ([facility]) Vital Signs (Past 12 Hours) Vital Signs Temp Pulse Pulse Resp BP Pulse Ox O2 Del Method 05/12/22 17:48 103 H 05/12/22 15:20 36.7 C 96 H 18 92/55 L 94 Nasal Cannula 05/12/22 11:38 36.8 C 96 H 20 103/71 99 Nasal Cannula O2 Flow Rate 05/12/22 17:48 05/12/22 15:20 2 05/12/22 11:38 2
[2022-05-13] MEDS: guaiFENesin SUGAR FREE 200 MG/10 ML UDC PO SCH ×4 (05:11→19:39)
[2022-05-13 06:27] LABS: Basophils # (auto) 0.09 K/uL (0-0.2); Basophils % (auto) 0.9 %; Eosinophils # (auto) 0.13 K/uL (0-0.50); Eosinophils % (auto) 1.3 %; Hemoglobin 12.8 g/dl (12.0-16.0); Immature Granulocytes # (auto) 0.05 K/uL (0.00-0.02); Immature Granulocytes % (auto) 0.5 %; Lymphocytes # (auto) 2.33 K/uL (1.2-3.4); Lymphocytes % (auto) 23.4 %; Mean Corpuscular Hemoglobin 32.2 pg (25.0-34.0); Mean Corpuscular Hgb Conc 32.8 g/dL (32.0-36.0); Mean Corpuscular Volume 98.2 fL (80.0-100.0); Mean Platelet Volume 12.7 fL (9.4-12.3); Monocytes # (auto) 1.15 K/uL (0.24-0.82); Monocytes % (auto) 11.5 %; Neutrophils # (auto) 6.21 K/uL (1.4-6.5); Neutrophils % (auto) 62.4 %; Platelet Count 163 K/uL (130-400); RDW Coefficient of Variation 17.1 % (11.5-14.5); RDW Standard Deviation 61.2 fL (36.4-46.3); Red Blood Count 3.97 M/uL (3.93-5.22); White Blood Count 9.96 K/ul (4.8-10.8)
[2022-05-13] MEDS ORDERED: SODIUM CHLORIDE 0.9% 1000ML 1,000 ML IV PRN (07:00)
[2022-05-13 07:25] LABS: BUN Creatinine Ratio 4.6 (10-20); Calcium 9.2 mg/dl (8.5-10.1); Creatinine Clr Calc Pharmacy 10.1 ml/min; Est GFR (African American) 9.5 ml/min; Est GFR (Non-African American) 8.2 ml/min; Magnesium 1.8 mg/dl (1.7-2.4); Potassium 3.7 mmol/L (3.5-5.1)
[2022-05-13] MEDS: LANTHANUM CARBONATE PO SCH ×3 (08:18→17:03)
[2022-05-13] MEDS: allopurinoL 300 MG TAB PO SCH (08:19)
[2022-05-13] MEDS: ASPIRIN 81 MG ECTAB PO SCH (08:20)
[2022-05-13] MEDS: ATORVASTATIN 40 MG TAB PO SCH (08:20)
[2022-05-13] MEDS: levETIRAcetam 500 MG TAB PO SCH ×3 (08:21→19:38)
[2022-05-13] MEDS: HEPARIN SOD 5,000 UNIT/0.5 ML VIAL SQ SCH ×2 (08:21→19:38)
[2022-05-13] MEDS: LIDOCAINE/PRILOCAINE 2.5% EA CRM EXT SCH (08:22)
[2022-05-13] MEDS: NYSTATIN POWDER 15GM BTL EXT SCH ×2 (08:22→19:37)
[2022-05-13] MEDS: METOPROLOL SUCC 50MG EXT REL TAB PO SCH ×2 (10:11→19:38)
--- NOTE | 2022-05-13 11:08 | Dialysis Progress Note ---
Date of Service May 13, 2022 Assessment & Plan Admission and Anticipated Discharge Date Admission Date: May 04, 2022 Subjective Subjective Assessment & Plan (1) ESRD (end stage renal disease) on dialysis: Plan: Dialysis today for 3 hrs and trying about 1.5 to 2 off if we can. 3 K bath However BP has been an issue. Afibb with RVR--HR > 100. (2) Respiratory failure with hypoxia and hypercapnia: Plan: improving/stabilized and multifactorial; appreciate critical care and cardiology evals. BL pl effusions new large WMA and diminished EF to 40% w/ PASP 75/stiff IVC (3) Goals of care, counseling/discussion: Plan: pt has had very challenging 2 mos clinically and is debilitated from over a month of serial/ongoing respiratory infections; agrees to pressors but not to intubation; does agree to cardiac meds -appreciate palliative and other teams' work at goals of care w/ her Subjective Seen during Dialysis. So far feels fine.BP and HR both about 100. AVF fine On 2 liter o2 now--gets o2 at home also. Review of Systems Review of Systems: All systems reviewed & are unremarkable except as noted in Subjective Physical Exam Constitutional: well developed, well nourished, + frail appearing and cooperative; no acute distress Eyes: EOM intact bilaterally ENMT: Ears: no external ear abnormality Nose: no external nose abnormality Mouth: + dry oral mucous membranes Neck: no nuchal rigidity Respiratory: normal respiratory effort (on 02NC) Auscultation: + diminished lung sounds Cardiovascular: Rate/Rhythm: + tachycardic and + irregularly irregular Extremities: + AV fistula (LUE + t/b); no edema (BLE and improved on BUE) Gastrointestinal (Abdomen): Inspection/Auscultation: normal bowel sounds Percussion/Palpation: abdomen soft; abdomen nontender Musculoskeletal: Extremities: strength 5/5 throughout Skin: no rashes, warm and dry Psychiatric: Orientation: oriented to person, oriented to place and cooperative Results & Data ([facility]) Vital Signs (Past 12 Hours) Vital Signs Temp Pulse Pulse Pulse Resp BP BP 05/13/22 11:00 101 H 104/76 05/13/22 10:30 108 H 125/75 05/13/22 10:38 05/13/22 08:00 108 H 05/13/22 10:00 108 H 136/78 05/13/22 09:51 103 H 135/71 05/13/22 09:28 36.8 C 105 H 05/13/22 07:40 36.7 C 103 H 18 136/63 05/13/22 02:00 36.6 C 104 H 18 127/76 Pulse Ox O2 Del Method O2 Flow Rate 05/13/22 11:00 05/13/22 10:30 05/13/22 10:38 Nasal Cannula 2 05/13/22 08:00 05/13/22 10:00 05/13/22 09:51 05/13/22 09:28 05/13/22 07:40 100 Room Air 2 05/13/22 02:00 97 Nasal Cannula 2
[2022-05-13] MEDS: AMPICILLIN/SULBACTAM SOD 3,000 MG in 0.9 % SODIUM CHLORIDE 100 ML IV SCH (12:50)
[2022-05-13] MEDS: valACYclovir HCL 500 MG TABLET PO SCH (13:03)
--- NOTE | 2022-05-13 14:12 | Palliative Care Progress Note ---
Date of Service May 13, 2022 Assessment & Plan (1) Palliative care encounter: (2) Acute on chronic respiratory failure with hypoxemia: Plan Pt is establishing a new baseline; she will continue HD as it offers her benefit and QOL. Her underlying chronic comorbidities remain unchanged. Palliative med will sign off, but remain available to re-engage for any acute needs. Please page me if/when this is needed. Rachell Swain DNP Clinical Director, Palliative Medicine Admission and Anticipated Discharge Date Admission Date: May 04, 2022 Subjective Tolerating HD appetite fair may be establishing a new lower baseline but remains AAOx3 Review of Systems Review of Systems: All systems reviewed & are unremarkable except as noted in Subjective Results & Data ([facility]) Vital Signs (Past 12 Hours) Vital Signs Temp Pulse Pulse Pulse Resp BP BP 05/13/22 12:57 36.7 C 112 H 147/66 H 05/13/22 12:30 103 H 107/63 05/13/22 12:00 110 H 111/67 05/13/22 11:30 113 H 137/85 05/13/22 11:00 101 H 104/76 05/13/22 10:30 108 H 125/75 05/13/22 10:38 05/13/22 08:00 108 H 05/13/22 10:00 108 H 136/78 05/13/22 09:51 103 H 135/71 05/13/22 09:28 36.8 C 105 H 05/13/22 07:40 36.7 C 103 H 18 136/63 Pulse Ox O2 Del Method O2 Flow Rate 05/13/22 12:57 05/13/22 12:30 05/13/22 12:00 05/13/22 11:30 05/13/22 11:00 05/13/22 10:30 05/13/22 10:38 Nasal Cannula 2 05/13/22 08:00 05/13/22 10:00 05/13/22 09:51 05/13/22 09:28 05/13/22 07:40 100 Room Air 2 PG Care Time/CCT Total # of Minutes Spent Total Time Spent with Patient: Total time spent is greater than 50% in coordination of care (as documented) at patient's floor/unit and/or counseling patient: Coding Level of Care Code None Diagnoses Palliative care encounter Z51.5 Acute on chronic respiratory failure with hypoxemia J96.21
[2022-05-13] MEDS: DIGOXIN 0.125 MG TAB PO SCH (17:03)
[2022-05-13] MEDS: MIRTAZAPINE TAB 15 MG TAB PO SCH (19:38)
--- NOTE | 2022-05-13 19:39 | Hospitalist Progress Note ---
Date of Service May 13, 2022 Assessment & Plan (1) Pulmonary edema: Plan: Cardiorenal syndrome with renal failure: Pulmonary edema: per : CXR: Cardiomegaly with evidence of congestive failure; pulmonary edema. Correlate clinically for evidence of a superimposed infectious/inflammatory pneumonitis; Small pleural effusions. Patient hypotensive in ED; 70/50 (55); albumin IV administered x1; SBP now 90 0.9 NSB 500 mL bolus x1 in ED Intially required bipap and was in ICU ON dialyiss appreciate nephrology help contnue to monitor over weekend has bed hold at [facility] as pr case management Shingles - rash noted at left axilla - valtrex renally dose started, will cont. History of seizure disorder: cont. Keppra Dyslipidemia: cont. Atorvastatin Gout: cont. Allopurinol Depression and Anxiety: Resumed Mertazapime Takes Trazadone (2 week trial to complete 05/09 per OP records); held on admission due to somnolence (2) Influenza A: Plan: out of window for tamiflu (3) Cardiorenal syndrome with renal failure: Plan: as above (4) Atrial fibrillation with rapid ventricular response: Plan: Was on amiodarone intially Not on any anticoagulation Currently on Metoprolol succinate 50 mg bid and digoxin (5) Coronary artery disease: Plan: on statin, aspirin and b marlee Admission and Anticipated Discharge Date Admission Date: May 04, 2022 Subjective says tired not eating much seems nauseous afebrile denies chest pain or sob Review of Systems Review of Systems: ROS unremarkable Physical Exam Neck: normal visual inspection Respiratory: normal respiratory effort, lungs clear to auscultation Cardiovascular: s 1nd s2 heard regular rate and rhythm, no murmurs edematous extremities Gastrointestinal (Abdomen): normal bowel sounds, soft, nontender, no hepa tosplenomegaly Neurologic: alert and awake speech low voice no facial droop obeys simple commands moves extremities Results & Data Results & Data ([facility]) Vital Signs (Past 12 Hours) Vital Signs Temp Pulse Pulse Pulse Resp BP BP 05/13/22 17:02 36.9 C 113 H 18 106/71 05/13/22 17:00 92/50 L 05/13/22 15:17 108 H 05/13/22 12:57 36.7 C 112 H 147/66 H 01/13/23 12:30 103 H 107/63 05/13/22 12:00 110 H 111/67 05/13/22 11:30 113 H 137/85 05/13/22 11:00 101 H 104/76 05/13/22 10:30 108 H 125/75 05/13/22 10:38 05/13/22 08:00 108 H 05/13/22 10:00 108 H 136/78 05/13/22 09:51 103 H 135/71 05/13/22 09:28 36.8 C 105 H 05/13/22 07:40 36.7 C 103 H 18 136/63 Pulse Ox O2 Del Method O2 Flow Rate 05/13/22 17:02 95 Nasal Cannula 2 05/13/22 17:00 05/13/22 15:17 05/13/22 12:57 05/13/22 12:30 05/13/22 12:00 05/13/22 11:30 05/13/22 11:00 05/13/22 10:30 05/13/22 10:38 Nasal Cannula 2 05/13/22 08:00 05/13/22 10:00 05/13/22 09:51 05/13/22 09:28 05/13/22 07:40 100 Room Air 2
[2022-05-14] MEDS: guaiFENesin SUGAR FREE 200 MG/10 ML UDC PO SCH ×4 (05:40→21:02)
[2022-05-14 08:21] LABS: Mean Corpuscular Hemoglobin 32.3 pg (25.0-34.0); Mean Corpuscular Hgb Conc 32.4 g/dL (32.0-36.0); Mean Corpuscular Volume 99.5 fL (80.0-100.0); Mean Platelet Volume 12.8 fL (9.4-12.3); Platelet Count 147 K/uL (130-400); RDW Coefficient of Variation 17.2 % (11.5-14.5); RDW Standard Deviation 61.6 fL (36.4-46.3); Red Blood Count 3.72 M/uL (3.93-5.22); White Blood Count 7.81 K/ul (4.8-10.8)
[2022-05-14] MEDS: LANTHANUM CARBONATE PO SCH ×3 (09:23→17:26)
[2022-05-14] MEDS: allopurinoL 300 MG TAB PO SCH (09:25)
[2022-05-14] MEDS: ATORVASTATIN 40 MG TAB PO SCH (09:26)
[2022-05-14] MEDS: ASPIRIN 81 MG ECTAB PO SCH (09:26)
[2022-05-14] MEDS: HEPARIN SOD 5,000 UNIT/0.5 ML VIAL SQ SCH ×2 (09:28→21:02)
[2022-05-14] MEDS: NYSTATIN POWDER 15GM BTL EXT SCH ×2 (09:29→21:03)
[2022-05-14] MEDS: levETIRAcetam 500 MG TAB PO SCH ×2 (09:29→21:03)
[2022-05-14] MEDS: METOPROLOL SUCC 50MG EXT REL TAB PO SCH ×2 (09:29→21:43)
--- NOTE | 2022-05-14 10:20 | Nephrology Progress Note ---
Date of Service May 14, 2022 Assessment & Plan (1) ESRD (end stage renal disease) on dialysis: Plan: Patient with ESRD on dialysis Monday. She had dialysis on 05/13/2022. HD on 05/05 for 2L UF; on 05/06 for 1.8L. despite lower pressures has not needed pressor support. BP has however dropped again today since midnight > she had her first dose of me toprolol last evening Next dialysis will be Monday. (2) Respiratory failure with hypoxia and hypercapnia: Plan: improving/stabilized and multifactorial; appreciate critical care and cardiology evals. BL pl effusions on CT plus al OL sgns; new large WMA and dminished EF to 40% w/ PASP 75/stiff IVC -UF as aggressively as she will tolerate w/ HD Admission and Anticipated Discharge Date Admission Date: May 04, 2022 Subjective Seen for ESRD. She feels better today. No shortness of breath. She had dial ysis yesterday. Review of Systems Review of Systems: All other systems were reviewed and negative except as noted in HPI Physical Exam Physical Exam: General exam: Appears comfortable, no acute distress HEENT: Pupils are equal and reactive to light Neck: No JVD, neck is supple trachea is midline Respiratory system: Clear breath sounds bilaterally. Gastrointestinal: Abdomen is soft, non distended, non tender, bowel sounds are present CVS: Regular rate and rhythm. No murmurs, rubs or gallops Musculoskeletal: No joint or muscle tenderness Extremities: Non tender, no edema, peripheral pulses are present Neuro: Oriented, no tremors, no focal neurological deficits Skin: No rashes Results & Data ([facility]) Vital Signs (Past 12 Hours) Vital Signs Temp Pulse Resp BP Pulse Ox O2 Del Method 05/14/22 07:33 36.5 C 104 H 19 109/58 L 96 Room Air 05/14/22 03:00 36.8 C 106 H 18 126/77 91 Room Air 05/13/22 23:00 36.7 C 106 H 18 127/71 98 Nasal Cannula Laboratory Results 05/13/22 06:04 05/14/22 07:49 WBC 7.81 RBC 3.72 L MCV 99.5 MCH 32.3 MCHC 32.4 RDW Std Deviation 61.6 H RDW Coeff of Edin 17.2 H Plt Count 147 MPV 12.8 H
[2022-05-14] MEDS: valACYclovir HCL 500 MG TABLET PO SCH (12:19)
--- NOTE | 2022-05-14 17:49 | CT Scan Report ---
CT chest diagnostic wo con CLINICAL HISTORY: r/o pneumonia TECHNIQUE: Multidetector row helical CT of the chest was performed. Coronal and sagittal reformations were obtained. Automated dose lowering techniques and/or adjustment according to patient size were u tilized for this exam. CT DOSE: 625.44 mGy.cm Comparison: Comparison is made to CT chest 05/05/2022 FINDINGS: Lungs and pleura: There is a moderate right and small left pleural effusion. Atelectasis is seen. The radius small amount of consolidation in the left lower lung. Heart and pericardium: Cardiomegaly is seen with biatrial enlargement. Vessels: The pulmonary trunk is enlarged measuring 40 mm. Severe atherosclerotic disease is seen. Mediastinum and shweta: Unremarkable. Chest wall and lower neck: Calcified right thyroid nodule measures up to 18 mm in diameter. Abdomen: Unremarkable. Bones: Degenerative changes in the thoracic spine. IMPRESSION: 1. Moderate right and small left pleural effusion. There is associated atelectasis and possibly pneu monia in the left lower lobe. 2. Prominent cardiomegaly and pulmonary hypertension. ACT 112: Negative or not required by law. Electronically signed by: Kole Hammond M.D. 05/14/2022 5:47 PM
[2022-05-14] MEDS: MIRTAZAPINE TAB 15 MG TAB PO SCH (21:03)
[2022-05-14] MEDS: CEFEPIME 1,000 MG in SYRINGE 0 ML IV SCH (23:40)
[2022-05-14] MEDS: DOXYCYCLINE HYCLATE 100 MG CAP PO SCH (23:40)
[2022-05-15] MEDS: guaiFENesin SUGAR FREE 200 MG/10 ML UDC PO SCH ×4 (06:10→20:37)
[2022-05-15] MEDS: LANTHANUM CARBONATE PO SCH ×3 (09:20→16:53)
[2022-05-15] MEDS: allopurinoL 300 MG TAB PO SCH (09:21)
[2022-05-15] MEDS: levETIRAcetam 500 MG TAB PO SCH ×2 (09:22→20:38)
[2022-05-15] MEDS: ASPIRIN 81 MG ECTAB PO SCH (09:22)
[2022-05-15] MEDS: ATORVASTATIN 40 MG TAB PO SCH (09:22)
[2022-05-15] MEDS: HEPARIN SOD 5,000 UNIT/0.5 ML VIAL SQ SCH ×2 (09:22→20:37)
[2022-05-15] MEDS: DOXYCYCLINE HYCLATE 100 MG CAP PO SCH ×2 (09:22→20:38)
[2022-05-15] MEDS: METOPROLOL SUCC 50MG EXT REL TAB PO SCH ×2 (09:23→20:38)
[2022-05-15] MEDS: NYSTATIN POWDER 15GM BTL EXT SCH ×2 (09:23→20:37)
--- NOTE | 2022-05-15 10:56 | Nephrology Progress Note ---
Date of Service May 15, 2022 Assessment & Plan (1) ESRD (end stage renal disease) on dialysis: Plan: Patient with ESRD on dialysis Monday. She had dialysis on 05/13/2022. HD on 05/05 for 2L UF; on 05/06 for 1.8L. despite lower pressures has not needed pressor support. Next dialysis will be Monday. (2) Respiratory failure with hypoxia and hypercapnia: Plan: improving/stabilized and multifactorial; appreciate critical care and cardiology evals. BL pl effusions on CT plus al OL sgns; new large WMA and dminished EF to 40% w/ PASP 75/stiff IVC -UF as aggressively as she will tolerate w/ HD Admission and Anticipated Discharge Date Admission Date: May 04, 2022 Subjective Seen for ESRD. No shortness of breath. Patient is on oxygen nasal cannula. Review of Systems Review of Systems: All other systems were reviewed and negative except as noted in HPI Physical Exam Physical Exam: General exam: Appears comfortable, no acute distress HEENT: Pupils are equal and reactive to light Neck: No JVD, neck is supple trachea is midline Respiratory system: Clear breath sounds bilaterally. Gastrointestinal: Abdomen is soft, non distended, non tender, bowel sounds are present CVS: Regular rate and rhythm. No murmurs, rubs or gallops Musculoskeletal: No joint or muscle tenderness Extremities: Non tender, no edema, peripheral pulses are present Neuro: Oriented, no tremors, no focal neurological deficits Skin: No rashes Results & Data ([facility]) Vital Signs (Past 12 Hours) Vital Signs Temp Pulse Pulse Pulse Resp BP Pulse Ox 05/15/22 09:59 05/15/22 09:24 96/66 L 05/15/22 07:39 89 05/15/22 07:14 36.5 C 80 17 102/55 L 98 05/15/22 03:00 36.5 C 87 20 102/62 99 05/14/22 23:00 36.9 C 94 H 19 109/73 99 O2 Del Method O2 Flow Rate 05/15/22 09:59 Nasal Cannula 2 05/15/22 09:24 05/15/22 07:39 05/15/22 07:14 Nasal Cannula 2.0 05/15/22 03:00 Nasal Cannula 2 05/14/22 23:00 Nasal Cannula 2 Laboratory Results 05/13/22 06:04
[2022-05-15] MEDS: valACYclovir HCL 500 MG TABLET PO SCH (11:53)
--- NOTE | 2022-05-15 16:40 | Hospitalist Progress Note ---
Date of Service May 15, 2022 Assessment & Plan (1) Pulmonary edema: Plan: per Dr. Mcnally's notes with addendum: Cardiorenal syndrome with renal failure: Pulmonary edema: per : CXR: Cardiomegaly with evidence of congestive failure; pulmonary edema. Correlate clinically for evidence of a superimposed infectious/inflammatory pneumonitis; Small pleural effusions. Patient hypotensive in ED; 70/50 (55); albumin IV administered x1; SBP now 90 0.9 NSB 500 mL bolus x1 in ED Intially required bipap and was in ICU ON dialyiss appreciate nephrology help contnue to monitor over weekend has bed hold at [facility] as pr case management 05/15 CT chest: Left lower lobe pneumonia Cough improving Continue cefepime plus doxycycline day #2 Add Mucinex, incentive spirometry For HD tomorrow Digoxin added by cardiology service Shingles - rash noted at left axilla - valtrex renally dose started, will cont. History of seizure disorder: cont. Keppra Dyslipidemia: cont. Atorvastatin Gout: cont. Allopurinol Depression and Anxiety: Resumed Mertazapime Takes Trazadone (2 week trial to complete 05/09 per OP records); held on admission due to somnolence (2) Influenza A: Plan: out of window for tamiflu (3) Cardiorenal syndrome with renal failure: Plan: as above (4) Atrial fibrillation with rapid ventricular response: Plan: Was on amiodarone intially Not on any anticoagulation Currently on Metoprolol succinate 50 mg bid and digoxin (5) Coronary artery disease: Plan: on statin, aspirin and b marlee Admission and Anticipated Discharge Date Admission Date: May 04, 2022 Subjective Follow-up for acute pulmonary edema, etc. Seen resting in bed, comfortable, watching TV, on 2 L of oxygen via nasal cannula States she feels improved today compared to yesterday Cough has resolved No shortness of breath, chest pain Appetite not that great No other symptom Review of Systems Review of Systems: all noted and negative except for above Physical Exam Physical Exam: General- oriented x 3, not in distress, speaks in sentences with no effort or accessory muscle use Eyes- anicteric Neck- no JVD Lungs-mild rhonchi in the left, clear on the right Heart- normal rate, regular rhythm; no murmurs Abdomen- normal bowel sounds, nondistended, soft, no tenderness Extremities- no pretibial edema, no calf tenderness Neuro- alert, oriented x 3; no gross focal neurologic deficits Skin- warm & dry Results & Data Results & Data ([facility]) Vital Signs (Past 12 Hours) Vital Signs Temp Pulse Pulse Resp BP Pulse Ox O2 Del Method 05/15/22 16:09 36.6 C 78 19 105/69 100 Nasal Cannula 05/15/22 15:57 76 05/15/22 11:41 36.4 C L 85 17 93/54 L 100 Nasal Cannula 05/15/22 09:59 Nasal Cannula 05/15/22 09:24 96/66 L 05/15/22 07:39 89 05/15/22 07:14 36.5 C 80 17 102/55 L 98 Nasal Cannula O2 Flow Rate 05/15/22 16:09 2.0 05/15/22 15:57 05/15/22 11:41 2.0 05/15/22 09:59 2 05/15/22 09:24 05/15/22 07:39 05/15/22 07:14 2.0 all noted and reviewed including below
[2022-05-15] MEDS: MIRTAZAPINE TAB 15 MG TAB PO SCH (20:37)
[2022-05-15] MEDS: CEFEPIME 1,000 MG in SYRINGE 0 ML IV SCH (20:38)
[2022-05-16] MEDS: guaiFENesin SUGAR FREE 200 MG/10 ML UDC PO SCH ×4 (05:34→20:54)
[2022-05-16] MEDS ORDERED: HEPARIN SOD (PORCINE) 1000 UNIT/ML IV ONE (07:00)
[2022-05-16] MEDS: NYSTATIN POWDER 15GM BTL EXT SCH ×2 (08:39→20:54)
[2022-05-16] MEDS: LANTHANUM CARBONATE PO SCH ×3 (08:39→17:24)
[2022-05-16] MEDS: levETIRAcetam 500 MG TAB PO SCH ×3 (08:40→20:53)
[2022-05-16] MEDS: ATORVASTATIN 40 MG TAB PO SCH (08:40)
[2022-05-16] MEDS: allopurinoL 300 MG TAB PO SCH (08:41)
[2022-05-16] MEDS: ASPIRIN 81 MG ECTAB PO SCH (08:42)
[2022-05-16] MEDS: DOXYCYCLINE HYCLATE 100 MG CAP PO SCH ×2 (08:42→20:53)
[2022-05-16] MEDS: METOPROLOL SUCC 50MG EXT REL TAB PO SCH ×2 (08:42→20:52)
[2022-05-16] MEDS: LIDOCAINE/PRILOCAINE 2.5% EA CRM EXT SCH (08:42)
[2022-05-16] MEDS: HEPARIN SOD 5,000 UNIT/0.5 ML VIAL SQ SCH ×2 (08:43→20:53)
--- NOTE | 2022-05-16 15:06 | Nephrology Progress Note ---
Date of Service May 16, 2022 Assessment & Plan (1) ESRD (end stage renal disease) on dialysis: Plan: Patient with ESRD on dialysis Monday. HD on 05/05 for 2L UF; on 05/06 for 1.8L. despite lower pressures has not needed pressor support. HD today, with goal of 1.5 - 2lit. (2) Respiratory failure with hypoxia and hypercapnia: Plan: improving/stabilized and multifactorial; appreciate critical care and cardiology evals. BL pl effusions on CT plus al OL sgns; new large WMA and dminished EF to 40% w/ PASP 75/stiff IVC -UF as aggressively as she will tolerate w/ HD Admission and Anticipated Discharge Date Admission Date: May 04, 2022 Subjective Follow-up for acute pulmonary edema, etc. Seen resting in bed, No shortness of breath, chest pain Review of Systems Review of Systems: All systems reviewed & are unremarkable except as noted in HPI & below Results & Data ([facility]) Vital Signs (Past 12 Hours) Vital Signs Temp Pulse Pulse Resp BP Pulse Ox O2 Del Method 05/16/22 11:53 36.8 C 73 16 95/62 L 94 Nasal Cannula 05/16/22 08:05 Nasal Cannula 05/16/22 07:21 86 05/16/22 07:14 36.7 C 94 H 18 114/76 97 Nasal Cannula 05/16/22 04:16 36.5 C 85 13 100/65 99 Nasal Cannula O2 Flow Rate 05/16/22 11:53 2.0 05/16/22 08:05 2 05/16/22 07:21 05/16/22 07:14 2.0 05/16/22 04:16 2 Laboratory Results 05/14/22 07:49 05/13/22 06:04
[2022-05-16] MEDS: ONDANSETRON INJ 2 MG/ML 2 ML VIAL IV PRN (16:16)
[2022-05-16] MEDS: DIGOXIN 0.125 MG TAB PO SCH (17:27)
--- NOTE | 2022-05-16 18:19 | Hospitalist Progress Note ---
Date of Service May 16, 2022 Assessment & Plan (1) Pulmonary edema: Plan: per Dr. Mcnally's notes with addendum: Cardiorenal syndrome with renal failure: Pulmonary edema: per : CXR: Cardiomegaly with evidence of congestive failure; pulmonary edema. Correlate clinically for evidence of a superimposed infectious/inflammatory pneumonitis; Small pleural effusions. Patient hypotensive in ED; 70/50 (55); albumin IV administered x1; SBP now 90 0.9 NSB 500 mL bolus x1 in ED Intially required bipap and was in ICU ON dialyiss 05/16 CT chest: Left lower lobe pneumonia Cough continues to improved Continue cefepime plus doxycycline day #3 Added Mucinex, incentive spirometry Digoxin added by cardiology service Shingles - rash noted at left axilla - valtrex renally dose started, continue History of seizure disorder: cont. Keppra Dyslipidemia: cont. Atorvastatin Gout: cont. Allopurinol Depression and Anxiety: Resumed Mertazapime Takes Trazadone (2 week trial to complete 05/09 per OP records); held on admission due to somnolence (2) Influenza A: Plan: out of window for tamiflu (3) Cardiorenal syndrome with renal failure: Plan: as above (4) Atrial fibrillation with rapid ventricular response: Plan: Was on amiodarone intially Not on any anticoagulation Currently on Metoprolol succinate 50 mg bid and digoxin (5) Coronary artery disease: Plan: on statin, aspirin and b marlee Admission and Anticipated Discharge Date Admission Date: May 04, 2022 Subjective ff up for acute pulmonary edema, pneumonia, etc seen resting in bed, on 2 L comfortable, not in distress states she feels ok overall cough has resolved breathing is ok no chest pain, dyspnea, palpitations, dizziness no other symptoms Review of Systems Review of Systems: all noted and negative except for above Physical Exam Physical Exam: General- oriented x 3, not in distress, speaks in sentences with no effort or accessory muscle use Eyes- anicteric Neck- no JVD Lungs- mild rhonchi on the left clear on the right Heart- normal rate, regular rhythm; no murmurs Abdomen- normal bowel sounds, nondistended, soft, nontender Extremities- no pretibial edema, no calf tenderness Neuro- alert, oriented x 3; no gross focal neurologic deficits Skin- warm & dry Results & Data Results & Data ([facility]) Vital Signs (Past 12 Hours) Vital Signs Temp Pulse Pulse Pulse Resp BP BP 05/16/22 17:15 36.4 C L 92 H 92/53 L 05/16/22 16:45 88 97/49 L 05/16/22 16:15 94 H 92/45 L 05/16/22 17:27 93 H 05/16/22 15:45 88 93/54 L 05/16/22 15:15 102 H 93/54 L 05/16/22 14:45 94 H 109/43 L 05/16/22 14:15 85 105/67 05/16/22 14:12 83 90/65 L 05/16/22 13:51 36.6 C 82 05/16/22 11:53 36.8 C 73 16 95/62 L 05/16/22 08:05 05/16/22 07:21 86 05/16/22 07:14 36.7 C 94 H 18 114/76 Pulse Ox O2 Del Method O2 Flow Rate 05/16/22 17:15 05/16/22 16:45 05/16/22 16:15 05/16/22 17:27 05/16/22 15:45 05/16/22 15:15 05/16/22 14:45 05/16/22 14:15 05/16/22 14:12 05/16/22 13:51 05/16/22 11:53 94 Nasal Cannula 2.0 05/16/22 08:05 Nasal Cannula 2 05/16/22 07:21 05/16/22 07:14 97 Nasal Cannula 2.0 all noted and reviewed including below
[2022-05-16] MEDS: CEFEPIME 1,000 MG in SYRINGE 0 ML IV SCH (20:52)
[2022-05-16] MEDS: MIRTAZAPINE TAB 15 MG TAB PO SCH (20:53)
[2022-05-17] MEDS: guaiFENesin SUGAR FREE 200 MG/10 ML UDC PO SCH ×3 (05:10→17:38)
[2022-05-17 07:05] LABS: Hematocrit (blood only) 38.5 % (34.1-44.9); Hemoglobin 12.4 g/dl (12.0-16.0); Mean Corpuscular Hemoglobin 32.6 pg (25.0-34.0); Mean Corpuscular Hgb Conc 32.2 g/dL (32.0-36.0); Mean Corpuscular Volume 101.3 fL (80.0-100.0); Mean Platelet Volume 13.5 fL (9.4-12.3); Nucleated RBC # (auto) 0.02 K/uL (0-0); Nucleated RBC % (auto) 0.3 %; Platelet Count 118 K/uL (130-400); RDW Coefficient of Variation 17.5 % (11.5-14.5); RDW Standard Deviation 64.6 fL (36.4-46.3); White Blood Count 6.78 K/ul (4.8-10.8)
[2022-05-17] MEDS: LANTHANUM CARBONATE PO SCH ×3 (09:12→17:35)
[2022-05-17] MEDS: allopurinoL 300 MG TAB PO SCH (09:14)
[2022-05-17] MEDS: ASPIRIN 81 MG ECTAB PO SCH (09:15)
[2022-05-17] MEDS: ATORVASTATIN 40 MG TAB PO SCH (09:15)
[2022-05-17] MEDS: DOXYCYCLINE HYCLATE 100 MG CAP PO SCH (09:16)
[2022-05-17] MEDS: HEPARIN SOD 5,000 UNIT/0.5 ML VIAL SQ SCH (09:16)
[2022-05-17] MEDS: levETIRAcetam 500 MG TAB PO SCH (09:16)
[2022-05-17] MEDS: METOPROLOL SUCC 50MG EXT REL TAB PO SCH (09:17)
[2022-05-17] MEDS: NYSTATIN POWDER 15GM BTL EXT SCH (09:17)
[2022-05-17] MEDS ORDERED: LANTHANUM CARBONATE 1000 MG PO SCH (10:45)
--- NOTE | 2022-05-17 12:50 | XRay Report ---
XR chest 1V portable HISTORY: 76 years-old Female ff up pleural effusion, pneumonia acute shortness of breath with report ed pneumonia COMPARISON: Chest CT May 14, 2022 TECHNIQUE: AP view of the chest FINDINGS: Cardiac silhouette is enlarged. Atherosclerosis of the aorta. No pneumothorax. Pulmonary vascular con gestion with interstitial coarsening. Layering pleural effusions with bibasilar consolidation appears stable. Degenerative changes of the shoulders and spine. Unchanged appearance of the fracture deform ity of the proximal left humerus. IMPRESSION: 1. Cardiomegaly with mildly improved pulmonary edema. 2. Persistent layering pleural effusions with bibasilar consolidation. ACT 112: Negative or not required by law. The above report was generated using voice recognition software. It may contain grammatical, syntax o r spelling errors. Electronically signed by: Jean Carlos Ding M.D. 05/17/2022 12:49 PM
--- NOTE | 2022-05-17 13:38 | Hospitalist Progress Note ---
Date of Service May 17, 2022 Assessment & Plan (1) Pulmonary edema: Plan: per Dr. Mcnally's notes with addendum: Cardiorenal syndrome with renal failure: Pulmonary edema: per : CXR: Cardiomegaly with evidence of congestive failure; pulmonary edema. Correlate clinically for evidence of a superimposed infectious/inflammatory pneumonitis; Small pleural effusions. Patient hypotensive in ED; 70/50 (55); albumin IV administered x1; SBP now 90 0.9 NSB 500 mL bolus x1 in ED Intially required bipap and was in ICU ON dialyiss (+) productive cough 05/14 CT chest: Left lower lobe pneumonia given cefepime plus doxycycline x 3 days continue with PO Cefdinir and PO Doxycycline x 4 more days to complete 7 day course Probiotics daily x 7 days encourage incentive spirometry Digoxin added by cardiology service Shingles - rash noted at left axilla - valtrex renally dosed given, completed course History of seizure disorder: cont. Keppra Dyslipidemia: cont. Atorvastatin Gout: cont. Allopurinol Depression and Anxiety: Resumed Mertazapime Takes Trazadone (2 week trial to complete 05/09 per OP records); held on admission due to somnolence (2) Influenza A: Plan: out of window for tamiflu (3) Cardiorenal syndrome with renal failure: Plan: as above (4) Atrial fibrillation with rapid ventricular response: Plan: Was on amiodarone initially Not on any anticoagulation Currently on Metoprolol succinate 50 mg bid and digoxin added by Cardiology service (5) Coronary artery disease: Plan: on statin, aspirin and b marlee Plan return to [facility] today ff up with Nephro for HD ff up with Cardio in 3 weeks Admission and Anticipated Discharge Date Admission Date: May 04, 2022 Subjective ff up for acute pulmonary edema, pneumonia, etc seen resting in bed, comfortable at baseline 2 L nasal cannula in good spirits states she feels fine overall cough resolved, no shortness of breath no chest pain, palpitations, dizziness no chest wall pain on the shingles site no other symptoms states she is ready and would really like to be discharged Review of Systems Review of Systems: all noted and negative except for above Physical Exam Physical Exam: General- oriented x 3, not in distress, speaks in sentences with no effort or accessory muscle use Eyes- anicteric Neck- no JVD Lungs- clear BS bilaterally, no rales/wheezes Left Lateral Chest wall erythematous confluent macules noted, moderate erythema no fresh vesicles, discharge, signs of infection Heart- normal rate, regular rhythm; no murmurs Abdomen- normal bowel sounds, nondistended, soft, nontender Extremities- no pretibial edema, no calf tenderness Neuro- alert, oriented x 3; no gross focal neurologic deficits Skin- warm & dry Results & Data Results & Data ([facility]) Vital Signs (Past 12 Hours) Vital Signs Temp Pulse Pulse Resp BP Pulse Ox O2 Del Method 05/17/22 11:26 36.5 C 87 18 105/66 95 Nasal Cannula 05/17/22 07:00 74 05/17/22 07:53 36.5 C 79 18 100 Room Air 05/17/22 07:52 Nasal Cannula 05/17/22 07:47 102/73 05/17/22 06:43 36.7 C 85 16 88/55 L 98 Nasal Cannula 05/17/22 02:22 36.8 C 92 H 16 74/49 L 94 Nasal Cannula O2 Flow Rate 05/17/22 11:26 2 05/17/22 07:00 05/17/22 07:53 05/17/22 07:52 2 05/17/22 07:47 05/17/22 06:43 2 05/17/22 02:22 2 all noted and reviewed including below
[2022-05-17] MEDS ORDERED: ADVANCED PROBIOTIC 1250 MG CAPSULE PO SCH (14:00)
--- NOTE | 2022-05-17 14:11 | Discharge Summary ---
Discharge Summary Date of Service May 17, 2022 Notes For Next Care Provider Medication Changes From Visit CEFDINIR- 300MG ONE DOSE POST DIALYSIS DURING HEMODIALYSIS DAYS X 3 (03/18, 03/20, 03/23) DOXYCYCLINE- 100MG BID X 4 DAYS PROBIOTICS DAILY X 2 WEEKS DIGOXIN 0.125MG (MON/MON/MON) Admission HPI Per Admitting Provider Ms. Sharron Sullivan is a 76-year-old female that presented to the [facility] from [facility] with worsening shortness of breath and worsening mental status . The patient has tested positive for flu on 04/28 with underlying pneumonia and has received 2 doses of Paxlovid. CXR in ED results indicated cardiomyopathy with CHF and pulmonary edema. Consider superimposed infection with pneumonitis and small pleural effusions. Slight leukocytosis WBC 11.96 . Patient is a dialysis patient M/W/F and she did receive dialysis yesterday with toxin removal only without fluid removal. Additional past medical history includes obesity, chronic atrial fibrillation, ESRD, CAD, COPD, HTN, HLD, depression, history of seizures, DM2, and JOSUÉ. When I examined the patient she is unable to provide a reliable ROS due to her somnolence and encephalopathy. BP 72/50, MAP 55. She has Albumin infusing. I suspect she has an A/C CHF exacerbation with ESRD and a superimposed infection on top of that. Troponin 227.6 will trend x BNP 1563. Per discussion with Nephrology, she has not shown significant improvement since she was admitted in March with an arm fracture. I was able to talk with the pt daughter Christine at [phone] and confirmed she is DNR/DNI; however ok for ICU for pressors and additional aggressive t if necessary. Patient will be admitted for further evaluation and management. Please see A/P for further detail. Admission Exam Per Admitting Provider Neuro: somnolent, PERRLA HEENT: head normocephalic, moist mucus membranes CV: irregularly irregular, tachycardic (-) M/G/R, (-) edema, cap refill < 3 seconds Resp: Lungs CTA in all dasilva. On RA GI: Abdomen large/S/NT/ND, hypoactive bowel sounds, (-) CVA tenderness Musculoskeletal: 5/5 B/L UE strength, 5/5 B/L LE strength. No gait disturbance Skin: (-) rashes , (-) erythema. Psych: encephalopathic Principal Dx & Hospital Course #1 = Principal Diagnosis (1) Pulmonary edema: per Dr. Mcnally's notes with addendum: Cardiorenal syndrome with renal failure: Pulmonary edema: per : CXR: Cardiomegaly with evidence of congestive failure; pulmonary edema. Correlate clinically for evidence of a superimposed infectious/inflammatory pneumonitis; Small pleural effusions. Patient hypotensive in ED; 70/50 (55); albumin IV administered x1; SBP now 90 0.9 NSB 500 mL bolus x1 in ED Intially required bipap and was in ICU ON dialyiss (+) productive cough 05/14 CT chest: Left lower lobe pneumonia given cefepime plus doxycycline x 3 days continue with PO Cefdinir and PO Doxycycline x 4 more days to complete 7 day course Probiotics daily x 7 days encourage incentive spirometry Digoxin added by cardiology service Shingles - rash noted at left axilla - valtrex renally dosed given, completed course History of seizure disorder: cont. Keppra Dyslipidemia: cont. Atorvastatin Gout: cont. Allopurinol Depression and Anxiety: Resumed Mertazapime Takes Trazadone (2 week trial to complete 05/09 per OP records); held on admission due to somnolence (2) Influenza A: out of window for tamiflu (3) Cardiorenal syndrome with renal failure: as above (4) Atrial fibrillation with rapid ventricular response: Was on amiodarone initially Not on any anticoagulation Currently on Metoprolol succinate 50 mg bid and digoxin added by Cardiology service (5) Coronary artery disease: on statin, aspirin and b marlee Plan return to [facility] today ff up with Nephro for HD ff up with Cardio in 3 weeks Discharge Exam General- oriented x 3, not in distress, speaks in sentences with no effort or accessory muscle use Eyes- anicteric Neck- no JVD Lungs- clear BS bilaterally, no rales/wheezes Left Lateral Chest wall erythematous confluent macules noted, moderate erythema no fresh vesicles, discharge, signs of infection Heart- normal rate, regular rhythm; no murmurs Abdomen- normal bowel sounds, nondistended, soft, nontender Extremities- no pretibial edema, no calf tenderness Neuro- alert, oriented x 3; no gross focal neurologic deficits Skin- warm & dry Updated Medication List Medication Instructions Recorded Confirmed Type lidocaine-prilocaine 2.5 %-2.5 % 1 applic topical 3XWK 02/25/22 05/04/22 History topical cream allopurinol 300 mg tablet 450 mg PO DAILY #45 tabs 03/01/22 05/04/22 Rx aspirin 81 mg tablet,delayed 162 mg PO DAILY #30 tabs 03/01/22 05/04/22 Rx release atorvastatin 80 mg tablet 80 mg PO DAILY #30 tabs 03/01/22 05/04/22 Rx calcitriol 0.5 mcg capsule 0.5 mcg PO 3XWK #12 caps 03/01/22 05/04/22 Rx docusate sodium 100 mg capsule 200 mg PO DAILY #60 caps 03/01/22 05/04/22 Rx (Colace) glucosamine YUt-E1-Lfjqyknpu 1 tab PO DAILY #30 tabs 03/01/22 05/04/22 Rx rhiannon 1,500 mg-400 unit-100 mg tablet (Glucosamine Daily Complex) lanthanum 1,000 mg chewable tablet 1,000 mg PO TIDM #90 tabs 03/01/22 05/04/22 Rx levetiracetam 500 mg tablet 500 mg PO .BID UD #32 tabs 03/01/22 05/04/22 Rx levetiracetam 500 mg tablet 500 mg PO .TID ON DIALYSIS DAY #15 03/01/22 05/04/22 Rx tabs trazodone 50 mg tablet 25 mg PO HS #30 tabs 03/01/22 05/04/22 Rx metoprolol succinate 100 mg 50 mg PO DAILY 05/04/22 05/04/22 History tablet,extended release 24 hr metoprolol succinate 50 mg 50 mg PO BID 05/04/22 05/04/22 History tablet,extended release 24 hr mirtazapine 15 mg tablet 15 mg PO QPM 05/04/22 05/04/22 History ondansetron 4 mg disintegrating 4 mg PO DAILY 05/04/22 05/04/22 History tablet sennosides 8.6 mg tablet (senna) 8.6 mg PO BID 05/04/22 05/04/22 History L.acidop,casei,lactis,rham-B.lact,shala 2 cap PO DAILY 14 days #28 caps 05/17/22 Rx 625 mg (10 billion cell) capsule (Advanced Probiotic) cefdinir 300 mg capsule 300 mg PO UD #3 caps 05/17/22 Rx digoxin 125 mcg (0.125 mg) tablet 0.125 mg PO MoWeFr@1600 30 days 05/17/22 Rx (Digitek) #13 tabs doxycycline hyclate 100 mg capsule 100 mg PO BID 4 days #8 caps 05/17/22 Rx Hospital Stay Data Consultations 05/04/22 13:56 ED Decision to Admit Stat 05/04/22 13:58 Consult Nephrology Routine 05/04/22 14:24 Consult Cardiology Routine 05/04/22 14:48 Consult Palliative Care Routine 05/05/22 09:09 Consult [employer] Handle [employer]er Routine Diagnostic Imagining Performed 05/05/22 12:52 CT chest without contrast [CT chest diagnostic wo con] Routine Comparison: Comparison is made to CT chest 10/20/2021 and chest radiograph 05/05/2022 FINDINGS: Lungs and pleura: Bilateral pleural effusions are seen with bronchial wall thickening and atelectasis. No right lower lobe mass is seen. Heart and pericardium: Cardiomegaly is seen with biatrial enlargement. Vessels: Severe atherosclerotic disease is seen. There is dilation of the pulmonary trunk to 42 mm. Mediastinum and shweta: Subcentimeter lymph nodes are seen. Chest wall and lower neck: Small thyroid nodules are noted which do not require follow-up by ACR criteria. Abdomen: A hiatal hernia is seen. Bones: Degenerative changes in the thoracic spine. IMPRESSION: 1. Bilateral pleural effusions with underlying atelectasis. No underlying mass lesion is seen. 2. Cardiomegaly and pulmonary hypertension. ACT 112: Negative or not required by law. Electronically signed by: Kole Hammond M.D. 05/05/2022 2:34 PM 05/14/22 13:36 CT chest diagnostic wo con Routine CT DOSE: 625.44 mGy.cm Comparison: Comparison is made to CT chest 05/05/2022 FINDINGS: Lungs and pleura: There is a moderate right and small left pleural effusion. Atelectasis is seen. The radius small amount of consolidation in the left lower lung. Heart and pericardium: Cardiomegaly is seen with biatrial enlargement. Vessels: The pulmonary trunk is enlarged measuring 40 mm. Severe atherosclerotic disease is seen. Mediastinum and shweta: Unremarkable. Chest wall and lower neck: Calcified right thyroid nodule measures up to 18 mm in diameter. Abdomen: Unremarkable. Bones: Degenerative changes in the thoracic spine. IMPRESSION: 1. Moderate right and small left pleural effusion. There is associated atelectasis and possibly pneumonia in the left lower lobe. 2. Prominent cardiomegaly and pulmonary hypertension. ACT 112: Negative or not required by law. Electronically signed by: Kole Hammond M.D. 05/14/2022 5:47 PM Pending Results Patient Have Any Pending Studies at Discharge: No Discharge Instructions Given to Patient (Per Discharging Provider) PLEASE REFER TO YOUR NEW MEDICATION LIST AND FOLLOW INSTRUCTIONS CAREFULLY. YOUR NEW MEDICATIONS INCLUDE: CEFDINIR- 300MG ONE DOSE POST DIALYSIS DURING HEMODIALYSIS DAYS X 3 (MON- 03/18, MON- 03/20, 03/23) DOXYCYCLINE- 100MG BID X 4 DAYS PROBIOTICS DAILY X 2 WEEKS DIGOXIN 0.125MG (MON/MON/MON) ENCOURAGE INCENTIVE SPIROMETRY. PLEASE CALL YOUR PRIMARY CARE PHYSICIAN OR RETURN TO THE ER IF WITH WORSENING OF SYMPTOMS, INCLUDING SHORTNESS OF BREATH, CHEST PAIN, FEVER/CHILLS, COUGH, ETC FOLLOW UP WITH PRIMARY CARE PHYSICIAN IN 1 WEEK. FOLLOW UP WITH [facility] HAND UPPER AND BOTTOM LACER IN 3 WEEKS. Total Time Total Time Spent Total Time Spent (In Minutes): > 30 MINUTES
== END 2022-05-17 19:49 | DRG 193 ==
LOC: ED 10:43 → EDINP 13:58 → SUATTDRO 13:58 → 1E 16:37 → 2S 05-06 09:30
DX: I13.2 Hypertensive heart and chronic kidney disease with heart failure and with stage 5 chronic kidney disease, or end stage renal disease; J96.12 Chronic respiratory failure with hypercapnia; G40.909 Epilepsy, unspecified, not intractable, without status epilepticus; I61.9 Nontraumatic intracerebral hemorrhage, unspecified; B02.9 Zoster without complications; N18.6 End stage renal disease; Z88.8 Allergy status to other drugs, medicaments and biological substances; E11.9 Type 2 diabetes mellitus without complications; I48.20 Chronic atrial fibrillation, unspecified; J96.21 Acute and chronic respiratory failure with hypoxia; Z79.899 Other long term (current) drug therapy; G47.33 Obstructive sleep apnea (adult) (pediatric); J44.9 Chronic obstructive pulmonary disease, unspecified; I50.812 Chronic right heart failure; F32.A Depression, unspecified; Z99.2 Dependence on renal dialysis; M10.9 Gout, unspecified; E78.5 Hyperlipidemia, unspecified; I25.10 Atherosclerotic heart disease of native coronary artery without angina pectoris; E66.01 Morbid (severe) obesity due to excess calories; F41.9 Anxiety disorder, unspecified; L89.150 Pressure ulcer of sacral region, unstageable; I68.0 Cerebral amyloid angiopathy; J10.1 Influenza due to other identified influenza virus with other respiratory manifestations; Z66 Do not resuscitate; Z79.82 Long term (current) use of aspirin; Z88.1 Allergy status to other antibiotic agents; J81.1 Chronic pulmonary edema

== ENCOUNTER 2022-05-29 17:35 | Inpatient (IN) ==
[2022-05-29 18:12] LABS: Base Excess VBG 6.9 mEq/L; HCO3 VBG 34 mmol/L; Oxygen Saturation VBG < 60.0 %; PCO2 VBG 59 mmHg (38-50); PO2 VBG 31 mmHg; pH VBG 7.37 (7.36-7.41)
--- NOTE | 2022-05-29 18:14 | Emergency Department Note ---
Impression & Plan Pneumonia, Acute non-ST elevation myocardial infarction (NSTEMI), Hypoxia, Acute respiratory distress, Influenza, COVID-19 ED Provider Note NAME: BRIAN SCOTT AGE: 76 SEX: F : 1945 ARRIVES VIA: Ambulance INFORMANT: Patient, EMS ED PROVIDER(S): Alan Ventura DO CHIEF COMPLAINT: Shortness of breath HPI: The patient is a 76-year-old female who presented to the emergency department from a detention for an evaluation of shortness of breath. The patient has a history of CHF. She also has a history of COPD atrial fibrillation and is end-stage renal disease. The patient last had dialysis on Monday. The patient has had a nonproductive cough. There was no reported fever. The patient is requesting not to have any IVs placed. The patient denies having any rectal bleeding. The patient states that she has been compliant with her outpatient medications. She is noticed some weight gain as well. The patient was placed on BiPAP prior to arrival. Her oxygen saturation at the detention was 80%. ROS: See above HPI for pertinent positives & negatives. A total of 10 systems reviewed and were otherwise negative. PAST MEDICAL HISTORY: See Below PAST SURGICAL HISTORY: See Below FAMILY HISTORY: See Below SOCIAL HISTORY: See Below HOME MEDICATIONS: See Below ALLERGIES: See Below VITALS: See Below PHYSICAL EXAMINATION: GENERAL: The patient is awake to verbal commands. She is somewhat listless otherwise. She does not appear to be uncomfortable or in pain. EYES: The conjunctivae are clear. The pupils are round and reactive. EARS, NOSE, MOUTH AND THROAT: The nose is without any evidence of any deformity. NECK: The neck is nontender and supple. RESPIRATORY: Absent breath sounds were noted in the left lung field. There were rales throughout the right lung field. Shallow respirations were noted. CARDIOVASCULAR: Regular rate and rhythm noted there no murmurs rubs or gallops normal S1 normal S2. GASTROINTESTINAL: The abdomen is soft. Abdomen is nontender. MUSCULOSKELETAL/EXTREMITIES: There is no evidence of gross deformity full range of motion is noted in the hips and shoulders. SKIN: Pedal edema was noted bilaterally. There was a fistula in the left arm. A palpable thrill was noted. NEUROLOGIC: Patient is awake and alert to verbal commands. The patient is oriented to person place and situation. MEDICAL DECISION MAKING: The patient is a 76-year-old female who presented to the emergency department for an evaluation of difficulty breathing. The patient has a history of renal failure. The patient had a physical exam that I thought could be consistent with pulmonary edema. Her blood pressure was not elevated. She she was placed on BiPAP prior to arrival but in the emergency department was able to be weaned off of BiPAP and onto 4 L nasal cannula. The patient was feeling much better on reevaluation. I discussed patient's laboratory and radiographic studies with her. She was treated with IV antibiotics for possible pneumonia but she also was found to have an elevation in her troponin. This could represent an underlying ischemic process. The patient does not want any heroic measures including intubation. I [facility] the [facility] agreed to evaluate the patient in the emergency department for further management and disposition. Triage Nursing notes reviewed. Prior medical records reviewed Vital Signs: reviewed and remarkable for hypoxia Differential diagnosis: Reactive airway disease, pneumonia, pneumothorax, COPD, CHF, infections, cardiac ischemia, pulmonary embolism, musculoskeletal, gastrointestinal, as well as other pathologies. ER treatment provided: See below Diagnostics interpreted by me: ECG: EKG was obtained in the emergency department. My interpretation is atrial fibrillation at 98 bpm. There were no PVCs noted. Poor R wave progression was noted with diffuse ST segment abnormalities. This was compared to a tracing from May. Cardiac Monitoring: An order was placed for continuous cardiac monitoring. The monitor shows a rate of 96 bpm with atrial fibrillation. Laboratory studies: As stated above and show below. Imaging studies: See below. Radiographic imaging was reviewed by myself Consultation(s): I discussed this case with Kylie who [facility] They have agreed to evaluate the patient in the emergency department for further management and disposition. Past Med/Surg History Medical History Acromioclavicular joint separation Atrial fibrillation CAD (coronary artery disease) "LEONA to LAD cath 2014 - moderate non obstructive disease" Carotid stenosis, bilateral Cerebral amyloid angiopathy Clavicle fracture Closed left fibular fracture Contraindication to anticoagulation therapy Depression DM type 2 (diabetes mellitus, type 2) Dyslipidemia End stage renal disease Falls frequently Fracture, humerus GERD (gastroesophageal reflux disease) HTN (hypertension) IBS (irritable bowel syndrome) Nontraumatic intracerebral hemorrhage Palliative care encounter Pressure injury of back, unstageable Seizure disorder Surgical History AV fistula H/O sinus surgery History of total left knee replacement S/P cholecystectomy Social History Smoking Status: Never smoker Second Hand Exposure: Yes; Hx Alcohol Use: No Hx Substance Use: No Preferred Language: Wolof Communication Ability: Effective Warehouse 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 Required: No Beliefs That Will Affect Care: Spiritual marital status: / Current Living Situation: [facility] Current Living Situation Comment: lives alone Feels Safe at Home: Yes Assistive Devices: Denture - Upper, Denture - Lower, Glasses, Oxygen - Continuous and Wheelchair Allergies Allergies Allergy/AdvReac Type Severity Reaction Status Date / Time verapamil Allergy Mild UNKNOWN Verified 05/29/22 18:03 lisinopril AdvReac Mild COUGH Verified 05/29/22 18:03 Home Meds Home Medications Medication Instructions Recorded Confirmed lidocaine-prilocaine 2.5 %-2.5 % 1 applic topical 3XWK 02/25/22 05/29/22 topical cream metoprolol succinate 50 mg 50 mg PO BID 05/04/22 05/29/22 tablet,extended release 24 hr mirtazapine 15 mg tablet 15 mg PO QPM 05/04/22 05/29/22 ondansetron 4 mg disintegrating 4 mg PO DAILY 05/04/22 05/29/22 tablet sennosides 8.6 mg tablet (senna) 8.6 mg PO BID 05/04/22 05/29/22 arginine-vitamin C-vitamin E oral 9.2 g PO DAILY 05/29/22 05/29/22 4.5 gram-156 mg/9.2 gram powder pkt (Arginaid) zinc oxide 20 % topical ointment 1 applic topical UD 05/29/22 05/29/22 zinc sulfate 50 mg zinc (220 mg) 50 mg PO DAILY 05/29/22 05/29/22 capsule Previous Rx's Medication Instructions Recorded allopurinol 300 mg tablet 450 mg PO DAILY #45 tabs 03/01/22 aspirin 81 mg tablet,delayed 162 mg PO DAILY #30 tabs 03/01/22 release atorvastatin 80 mg tablet 80 mg PO DAILY #30 tabs 03/01/22 calcitriol 0.5 mcg capsule 0.5 mcg PO 3XWK #12 caps 03/01/22 docusate sodium 100 mg capsule 200 mg PO DAILY #60 caps 03/01/22 (Colace) glucosamine [id number]-T8-Iicoybgsq 1 tab PO DAILY #30 tabs 03/01/22 rhiannon 1,500 mg-400 unit-100 mg tablet (Glucosamine Daily Complex) lanthanum 1,000 mg chewable tablet 1,000 mg PO TIDM #90 tabs 03/01/22 levetiracetam 500 mg tablet 500 mg PO .BID UD #32 tabs 03/01/22 levetiracetam 500 mg tablet 500 mg PO .TID ON DIALYSIS DAY #15 03/01/22 tabs L.acidop,casei,lactis,rham-B.lact,shala 2 cap PO DAILY 14 days #28 caps 05/17/22 625 mg (10 billion cell) capsule (Advanced Probiotic) digoxin 125 mcg (0.125 mg) tablet 0.125 mg PO MoWeFr@1600 30 days 05/17/22 (Digitek) #13 tabs Results & Data (ED) Vital Signs Vital Signs - 24 hr 05/29/22 17:47 05/29/22 17:57 05/29/22 17:57 Temperature 36.6 C 36.6 C Temperature Source Oral Oral Pulse Rate 98 H Pulse Rate from SpO2 Sensor Respiratory Rate 21 21 Respiratory Effort / Characteristics Labored Blood Pressure Blood Pressure [Right Arm] 121/61 Blood Pressure Mean Blood Pressure Mean [Right Arm] 81 Pulse Oximetry 97 90 98 Oxygen Delivery Method Nasal Cannula Nasal Cannula Nasal Cannula Oxygen Flow Rate 4 4 4 Sepsis Recent Fever Within 48 Hours No Sepsis New/Unexplained Change in Mental Status No Sepsis Action Taken by Nursing No Action Required 05/29/22 18:01 05/29/22 17:49 05/29/22 17:50 Temperature Temperature Source Pulse Rate 90 99 H 99 H Pulse Rate from SpO2 Sensor 106 H 99 H Respiratory Rate 19 23 19 Respiratory Effort / Characteristics Blood Pressure Blood Pressure [Right Arm] Blood Pressure Mean Blood Pressure Mean [Right Arm] Pulse Oximetry 98 99 98 Oxygen Delivery Method Nasal Cannula Oxygen Flow Rate 4 Sepsis Recent Fever Within 48 Hours Sepsis New/Unexplained Change in Mental Status Sepsis Action Taken by Nursing 05/29/22 17:58 05/29/22 17:58 05/29/22 18:00 Temperature Temperature Source Pulse Rate 102 H 99 H Pulse Rate from SpO2 Sensor 102 H 106 H Respiratory Rate 21 20 Respiratory Effort / Characteristics Blood Pressure 121/61 Blood Pressure [Right Arm] Blood Pressure Mean 81 Blood Pressure Mean [Right Arm] Pulse Oximetry 97 97 Oxygen Delivery Method Oxygen Flow Rate Sepsis Recent Fever Within 48 Hours Sepsis New/Unexplained Change in Mental Status Sepsis Action Taken by Nursing 05/29/22 18:09 05/29/22 18:09 05/29/22 18:10 Temperature Temperature Source Pulse Rate 92 H 96 H Pulse Rate from SpO2 Sensor 97 H 94 H Respiratory Rate 21 18 Respiratory Effort / Characteristics Blood Pressure 109/75 Blood Pressure [Right Arm] Blood Pressure Mean 86 Blood Pressure Mean [Right Arm] Pulse Oximetry 98 98 Oxygen Delivery Method Oxygen Flow Rate Sepsis Recent Fever Within 48 Hours Sepsis New/Unexplained Change in Mental Status Sepsis Action Taken by [facility] Medications Current Medication List: was personally reviewed by me Laboratory Data Attestation: I reviewed the patient's lab results. 05/29/22 17:52 05/29/22 17:52 Lab Results 05/29/22 05/29/22 05/29/22 Range/Units 17:52 17:52 17:52 WBC 6.18 (4.8-10.8) K/ul RBC 3.69 L (4.20-5.40) M/uL Hgb 12.0 (12.0-16.0) g/dl Hct 38.2 (37.0-47.0) % MCV 103.5 H (80.0-100.0) fL MCH 32.5 (25.0-34.0) pg MCHC 31.4 L (32.0-36.0) g/dL RDW Std Deviation 63.6 H (36.4-46.3) fL RDW Coeff of Edin 16.9 H (11.5-14.5) % Plt Count 100 L (130-400) K/uL MPV 13.3 H (9.4-12.4) fL Immature Gran % (Auto) 0.5 % Neut % (Auto) 44.4 % Lymph % (Auto) 43.9 % [place] % (Auto) 7.8 % Eos % (Auto) 2.8 % Baso % (Auto) 0.6 % Neut # (Auto) 2.75 (1.40-6.50) K/uL Lymph # (Auto) 2.71 (1.2-3.4) K/uL [place] # (Auto) 0.48 (0.11-0.59) K/uL Eos # (Auto) 0.17 (0-0.50) K/uL Baso # (Auto) 0.04 (0-0.2) K/uL Immature Gran # (Auto) 0.03 (0.01-0.20) K/uL Absolute Nucleated RBC 0.02 (0-0.12) K/uL Nucleated RBC % (auto) 0.3 % PT INR APTT PTT Ratio VBG pH (7.36-7.41) VBG pCO2 (38-50) mmHg VBG pO2 mmHg VBG HCO3 mmol/L VBG O2 Saturation % VBG Base Excess mEq/L Sodium 141 (136-145) mmol/L Potassium 3.4 L (3.5-5.1) mmol/L Chloride 100 (98-107) mmol/L Carbon Dioxide 33 H (21-32) mmol/L Anion Gap 8 (3-11) BUN 26 H (6-23) mg/dl Creatinine 4.82 H* (0.6-1.2) mg/dl Est Cr Clr Drug Dosing Not Reportable Est GFR ( Amer) 9.3 ml/min Est GFR (Non-Af Amer) 8.1 ml/min BUN/Creatinine Ratio 5.4 L (10-20) Glucose 87 (70-99(Fasting)) mg/dl Lactate 1.4 (0.4-2.0) mmol/L Calcium 8.9 (8.5-10.1) mg/dl Magnesium 1.9 (1.7-2.4) mg/dl Total Bilirubin 0.6 (0.2-1.0) mg/dl Direct Bilirubin 0.2 (0-0.2) mg/dl AST 48 H (13-39) U/L ALT 26 (7-52) U/L Alkaline Phosphatase 61 (34-104) U/L Troponin I High Sens 1340.9 H* (0-14) pg/ml Total Protein 5.6 L (6.0-8.3) gm/dl Albumin 2.9 L (3.4-5.0) gm/dl Procalcitonin (0-0.5) ng/ml Digoxin (0.8-2.0) ng/ml 05/29/22 05/29/22 05/29/22 Range/Units 17:52 17:52 17:52 WBC (4.8-10.8) K/ul RBC (4.20-5.40) M/uL Hgb (12.0-16.0) g/dl Hct (37.0-47.0) % MCV (80.0-100.0) fL MCH (25.0-34.0) pg MCHC (32.0-36.0) g/dL RDW Std Deviation (36.4-46.3) fL RDW Coeff of Edin (11.5-14.5) % Plt Count (130-400) K/uL MPV (9.4-12.4) fL Immature Gran % (Auto) % Neut % (Auto) % Lymph % (Auto) % [place] % (Auto) % Eos % (Auto) % Baso % (Auto) % Neut # (Auto) (1.40-6.50) K/uL Lymph # (Auto) (1.2-3.4) K/uL [place] # (Auto) (0.11-0.59) K/uL Eos # (Auto) (0-0.50) K/uL Baso # (Auto) (0-0.2) K/uL Immature Gran # (Auto) (0.01-0.20) K/uL Absolute Nucleated RBC (0-0.12) K/uL Nucleated RBC % (auto) % PT Cancelled INR Cancelled APTT Cancelled PTT Ratio Cancelled VBG pH (7.36-7.41) VBG pCO2 (38-50) mmHg VBG pO2 mmHg VBG HCO3 mmol/L VBG O2 Saturation % VBG Base Excess mEq/L Sodium (136-145) mmol/L Potassium (3.5-5.1) mmol/L Chloride (98-107) mmol/L Carbon Dioxide (21-32) mmol/L Anion Gap (3-11) BUN (6-23) mg/dl Creatinine (0.6-1.2) mg/dl Est Cr Clr Drug Dosing Est GFR ( Amer) ml/min Est GFR (Non-Af Amer) ml/min BUN/Creatinine Ratio (10-20) Glucose (70-99(Fasting)) mg/dl Lactate (0.4-2.0) mmol/L Calcium (8.5-10.1) mg/dl Magnesium (1.7-2.4) mg/dl Total Bilirubin (0.2-1.0) mg/dl Direct Bilirubin (0-0.2) mg/dl AST (13-39) U/L ALT (7-52) U/L Alkaline Phosphatase (34-104) U/L Troponin I High Sens (0-14) pg/ml Total Protein (6.0-8.3) gm/dl Albumin (3.4-5.0) gm/dl Procalcitonin 0.63 H (0-0.5) ng/ml Digoxin 0.9 (0.8-2.0) ng/ml 05/29/22 Range/Units 17:52 WBC (4.8-10.8) K/ul RBC (4.20-5.40) M/uL Hgb (12.0-16.0) g/dl Hct (37.0-47.0) % MCV (80.0-100.0) fL MCH (25.0-34.0) pg MCHC (32.0-36.0) g/dL RDW Std Deviation (36.4-46.3) fL RDW Coeff of Edin (11.5-14.5) % Plt Count (130-400) K/uL MPV (9.4-12.4) fL Immature Gran % (Auto) % Neut % (Auto) % Lymph % (Auto) % [place] % (Auto) % Eos % (Auto) % Baso % (Auto) % Neut # (Auto) (1.40-6.50) K/uL Lymph # (Auto) (1.2-3.4) K/uL [place] # (Auto) (0.11-0.59) K/uL Eos # (Auto) (0-0.50) K/uL Baso # (Auto) (0-0.2) K/uL Immature Gran # (Auto) (0.01-0.20) K/uL Absolute Nucleated RBC (0-0.12) K/uL Nucleated RBC % (auto) % PT INR APTT PTT Ratio VBG pH 7.37 (7.36-7.41) VBG pCO2 59 H (38-50) mmHg VBG pO2 31 mmHg VBG HCO3 34 mmol/L VBG O2 Saturation < 60.0 % VBG Base Excess 6.9 mEq/L Sodium (136-145) mmol/L Potassium (3.5-5.1) mmol/L Chloride (98-107) mmol/L Carbon Dioxide (21-32) mmol/L Anion Gap (3-11) BUN (6-23) mg/dl Creatinine (0.6-1.2) mg/dl Est Cr Clr Drug Dosing Est GFR ( Amer) ml/min Est GFR (Non-Af Amer) ml/min BUN/Creatinine Ratio (10-20) Glucose (70-99(Fasting)) mg/dl Lactate (0.4-2.0) mmol/L Calcium (8.5-10.1) mg/dl Magnesium (1.7-2.4) mg/dl Total Bilirubin (0.2-1.0) mg/dl Direct Bilirubin (0-0.2) mg/dl AST (13-39) U/L ALT (7-52) U/L Alkaline Phosphatase (34-104) U/L Troponin I High Sens (0-14) pg/ml Total Protein (6.0-8.3) gm/dl Albumin (3.4-5.0) gm/dl Procalcitonin (0-0.5) ng/ml Digoxin (0.8-2.0) ng/ml Imaging Data Radiologist's Impression: Chest X-Ray 05/29/22 17:49 XR chest 1V portable CLINICAL HISTORY: Sepsis. COMPARISON STUDY: Chest CT May 14, 2022 and chest radiograph May 17, 2022. FINDINGS: Patient is rotated. Small left pleural effusion is noted. Left lower lung airspace opacity has progressed. There is also a small right pleural effusion with hazy right basilar opacity which is similar to prior exam. Cardiomegaly is again noted. Mild pulmonary edema has slightly improved. IMPRESSION: 1. Small bilateral pleural effusions with increase in left basilar opacity which could reflect atelectasis or pneumonia. 2. Cardiomegaly. Slight improvement in pulmonary edema. ACT 112: Negative or not required by law. Electronically signed by: Andrews Gauthier M.D. 05/29/2022 6:30 PM Discharge Plan Visit Data Chief Complaint: Respiratory Distress ED Provider: Alan Ventura Discharge Problem: Pneumonia, Acute non-ST elevation myocardial infarction (NSTEMI), Hypoxia, Acute respiratory distress, Influenza, COVID-19 Patient Disposition: Being Evaluated by Hospitalist Forms Stand Alone Forms: My [facility] Prescriptions Prescriptions: No Action lidocaine-prilocaine 2.5-2.5 % cream 1 applic topical 3XWK Rx Instructions: apply a small amount to access AVF 30-60 min prior to dialysis, cover with occlusive dressing (saran wrap) atorvastatin 80 mg tablet 80 mg PO DAILY Qty: 30 0RF levetiracetam 500 mg Tablet 500 mg PO .TID ON DIALYSIS DAY Qty: 15 0RF Rx Instructions: on dialysis days takes 1st tablet of day at 0600 levetiracetam 500 mg Tablet 500 mg PO .BID UD Qty: 32 0RF Rx Instructions: Take am & noon on non dialysis days aspirin 81 mg Tablet,Delayed Release (Dr/Ec) 162 mg PO DAILY Qty: 30 0RF calcitriol 0.5 mcg Capsule 0.5 mcg PO 3XWK Qty: 12 0RF Rx Instructions: administer in dialysis docusate sodium [Colace] 100 mg Capsule 200 mg PO DAILY Qty: 60 0RF allopurinol 300 mg Tablet 450 mg PO DAILY Qty: 45 0RF lanthanum 1,000 mg Tablet,Chewable 1,000 mg PO TIDM Qty: 90 0RF Rx Instructions: take with 3 times a day with meals and 1 with snack 2x a day [id number] serr [Glucosamine Daily Complex] 1,500-400-100 mg-unit-mg Tablet 1 tab PO DAILY Qty: 30 0RF Rx Instructions: give after food/meal sennosides [senna] 8.6 mg Tablet 8.6 mg PO BID metoprolol succinate 50 mg Tablet Extended Release 24 Hr 50 mg PO BID Rx Instructions: On NON dialysis days mirtazapine 15 mg Tablet 15 mg PO QPM ondansetron 4 mg Tablet,Disintegrating 4 mg PO DAILY digoxin [Digitek] 125 mcg (0.125 mg) Tablet 0.125 mg PO MoWeFr@1600 30 Days Qty: 13 0RF Advanced Probiotic 625 mg (10 billion cell) Capsule 2 cap PO DAILY 14 Days Qty: 28 0RF zinc sulfate 50 mg zinc (220 mg) capsule 50 mg PO DAILY zinc oxide 20 % ointment 1 applic TOPICAL UD Arginaid 4.5 gram-156 mg/9.2 gram powder in packet 9.2 g PO DAILY Referrals Referrals: Cristiano Cerda MD [Primary Care Provider] -
[2022-05-29 18:18] LABS: Basophils # (auto) 0.04 K/uL (0-0.2); Basophils % (auto) 0.6 %; Eosinophils # (auto) 0.17 K/uL (0-0.50); Eosinophils % (auto) 2.8 %; Hematocrit (blood only) 38.2 % (37.0-47.0); Immature Granulocytes # (auto) 0.03 K/uL (0.01-0.20); Immature Granulocytes % (auto) 0.5 %; Lymphocytes # (auto) 2.71 K/uL (1.2-3.4); Lymphocytes % (auto) 43.9 %; Mean Corpuscular Hemoglobin 32.5 pg (25.0-34.0); Mean Corpuscular Hgb Conc 31.4 g/dL (32.0-36.0); Mean Corpuscular Volume 103.5 fL (80.0-100.0); Mean Platelet Volume 13.3 fL (9.4-12.4); Monocytes # (auto) 0.48 K/uL (0.11-0.59); Monocytes % (auto) 7.8 %; Neutrophils # (auto) 2.75 K/uL (1.40-6.50); Neutrophils % (auto) 44.4 %; Nucleated RBC # (auto) 0.02 K/uL (0-0.12); Nucleated RBC % (auto) 0.3 %; Platelet Count 100 K/uL (130-400); RDW Coefficient of Variation 16.9 % (11.5-14.5); RDW Standard Deviation 63.6 fL (36.4-46.3); Red Blood Count 3.69 M/uL (4.20-5.40); White Blood Count 6.18 K/ul (4.8-10.8)
[2022-05-29 18:26] LABS: Albumin Level 2.9 gm/dl (3.4-5.0); Anion Gap 8 (3-11); Bilirubin Direct 0.2 mg/dl (0-0.2); Bilirubin,Total 0.6 mg/dl (0.2-1.0); Calcium 8.9 mg/dl (8.5-10.1); Carbon Dioxide 33 mmol/L (21-32); Chloride 100 mmol/L (98-107); Magnesium 1.9 mg/dl (1.7-2.4); Potassium 3.4 mmol/L (3.5-5.1); Sodium 141 mmol/L (136-145)
--- NOTE | 2022-05-29 18:33 | XRay Report ---
XR chest 1V portable CLINICAL HISTORY: Sepsis. COMPARISON STUDY: Chest CT May 14, 2022 and chest radiograph May 17, 2022. FINDINGS: Patient is rotated. Small left pleural effusion is noted. Left lower lung airspace opacity has progressed. There is also a small right pleural effusion with hazy right basilar opacity which is similar to prior exam. Cardiomegaly is again noted. Mild pulmonary edema has slightly improved. IMPRESSION: 1. Small bilateral pleural effusions with increase in left basilar opacity which could reflect atelec tasis or pneumonia. 2. Cardiomegaly. Slight improvement in pulmonary edema. ACT 112: Negative or not required by law. Electronically signed by: Andrews Gauthier M.D. 05/29/2022 6:30 PM
[2022-05-29 18:41] LABS: Alanine Aminotransferase 26 U/L (7-52); Alkaline Phosphatase 61 U/L (34-104); Aspartate Aminotransferase 48 U/L (13-39); BUN Creatinine Ratio 5.4 (10-20); Blood Urea Nitrogen 26 mg/dl (6-23); Est GFR (African American) 9.3 ml/min; Est GFR (Non-African American) 8.1 ml/min; Glucose 87 mg/dl (70-99(Fasting)); Total Protein 5.6 gm/dl (6.0-8.3); Troponin I High Sensitivity 1340.9 pg/ml (0-14)
[2022-05-29] MEDS ORDERED: PIPERACILLIN/TAZOBACTAM 4.5 GM/120 ML BAG IV ONE (18:55)
[2022-05-29 19:00] LABS: Influenza B virus by PCR Negative (Neg); RSV by PCR Negative (Neg)
[2022-05-29 19:07] LABS: Influenza A virus by PCR Positive (Neg); SARS CoV2 RNA(COVID-19) Ceph POSITIVE (Negative)
--- NOTE | 2022-05-29 19:17 | History & Physical Report ---
Date of Service May 29, 2022 Assessment & Plan (1) Acute hypoxemic respiratory failure: Plan: Acute on chronic hx COPD/nocturnal hypoxemia/pulm hypertension as per records Multifactorial : Severe COVID-19 pneumonia HCAP possible aspiration, no overt sepsis for now Troponin elevation secondary to above in the setting of kidney dysfunction hx chronic systolic heart failure (EF 40 to 45%, TTE 2021)/ESRD on HD, some congestion in the imaging hx CAD sp stenting valvular heart disease (severe TR, mild /MR ) history of recurrent CVA HTN, BP on the lower side hyperlipidemia on statin Rx atrial fibrillation, rate controlled off anticoagulation due to hx ICH hx cerebral amyloid angiopathy as per records hx posttraumatic seizures on Keppra prophylaxis DM2 diet controlled, well-controlled as of recent hemoglobin A1c of 5.4 last May 2022 chronic anemia, hemoglobin at baseline episodic thrombocytopenia Medical telemetry Supplemental O2 Baseline ABG Decadron for severe COVID-19 pneumonia (Remdesivir contraindicated given kidney dysfunction) CS, Zosyn for HCAP possible aspiration Aspiration precautions, swallow eval Follow troponin, TTE if with progression Nephrology consult Re: Dialysis management Appropriate to decrease home beta-marlee dose for now given borderline BP Basal bolus insulin, ISS BG goal 1 10-1 40, carb count coverage DVT prophylaxis. SCDs Re: Thrombocytopenia DNR as per patient's prior directives. Total critical care time was 40 minutes. Patient daughter requesting updates from providers. Ms. Christine Kamara, contact #[phone]. Text document was generated using [employer] voice recognition software. It may contain grammatical or spelling errors. Kindly contact undersigned for clarification of any documentation item in question. History of Present Illness Chief Complaint: Shortness of breath, hypoxemia as per records Primary Care Provider: Cristiano Cerda MD History obtained from patient, family, and records. Patient is a fair historian. Medical history significant for chronic systolic heart failure (EF 40 to 45%, TTE 2021), CAD sp stenting, valvular heart disease (severe TR, mild /MR ), COPD/nocturnal hypoxia/pulmonary hypertension as per records, history of recurrent CVA, HTN, hyperlipidemia, atrial fibrillation off anticoagulation due to hx ICH, cerebral amyloid angiopathy as per records, ESRD on HD, history of posttraumatic seizures, DM2 diet controlled, chronic anemia (baseline hemoglobin 11 ), mood disorder. Last confinement May 04 to 2022 for cardiorenal syndrome and influenza A. Cough symptoms improved on discharge as per patient. Patient tested positive for COVID-19 about 4 days ago as per long term documentation. Patient with fatigue symptoms. No chills, No fever. Paxlovid not given due to kidney dysfunction as per long term report. Patient later noted to have worsening cough symptoms. Patient admits to coughing with meals/water intake if not careful. No chest pain. Worsening shortness of breath noted today at the long term. O2 sats noted to be 80s on room air. Patient placed by EMS on CPAP initially Patient directed to ER for evaluation. Zosyn administered at the ER. MEDICAL HISTORY: As above. SURGERIES: section, knee surgery, cholecystectomy, tonsillectomy, sinus surgery, vascular procedures FAMILY HISTORY: Heart disease, RA, DM, heart disease, PERSONAL AND SOCIAL HISTORY: Nonsmoker. No chronic intake of alcoholic beverages. 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 Allergies Allergy/AdvReac Type Severity Reaction Status Date / Time verapamil Allergy Mild UNKNOWN Verified 05/29/22 18:03 lisinopril AdvReac Mild COUGH Verified 05/29/22 18:03 Home Medications Medication Instructions Recorded Confirmed Type lidocaine-prilocaine 2.5 %-2.5 % 1 applic topical 3XWK 02/25/22 05/29/22 History topical cream allopurinol 300 mg tablet 450 mg PO DAILY #45 tabs 03/01/22 05/29/22 Rx aspirin 81 mg tablet,delayed 162 mg PO DAILY #30 tabs 03/01/22 05/29/22 Rx release atorvastatin 80 mg tablet 80 mg PO DAILY #30 tabs 03/01/22 05/29/22 Rx calcitriol 0.5 mcg capsule 0.5 mcg PO 3XWK #12 caps 03/01/22 05/29/22 Rx docusate sodium 100 mg capsule 200 mg PO DAILY #60 caps 03/01/22 05/29/22 Rx (Colace) glucosamine [id number] 1 tab PO DAILY #30 tabs 03/01/22 05/29/22 Rx rhiannon 1,500 mg-400 unit-100 mg tablet (Glucosamine Daily Complex) lanthanum 1,000 mg chewable tablet 1,000 mg PO TIDM #90 tabs 03/01/22 05/29/22 Rx levetiracetam 500 mg tablet 500 mg PO .BID UD #32 tabs 03/01/22 05/29/22 Rx levetiracetam 500 mg tablet 500 mg PO .TID ON DIALYSIS DAY #15 03/01/22 05/29/22 Rx tabs metoprolol succinate 50 mg 50 mg PO BID 05/04/22 05/29/22 History tablet,extended release 24 hr mirtazapine 15 mg tablet 15 mg PO QPM 05/04/22 05/29/22 History ondansetron 4 mg disintegrating 4 mg PO DAILY 05/04/22 05/29/22 History tablet sennosides 8.6 mg tablet (senna) 8.6 mg PO BID 05/04/22 05/29/22 History L.acidop,casei,lactis,rham-B.lact,shala 2 cap PO DAILY 14 days #28 caps 05/17/22 05/29/22 Rx 625 mg (10 billion cell) capsule (Advanced Probiotic) digoxin 125 mcg (0.125 mg) tablet 0.125 mg PO MoWeFr@1600 30 days 05/17/22 05/29/22 Rx (Digitek) #13 tabs arginine-vitamin C-vitamin E oral 9.2 g PO DAILY 05/29/22 05/29/22 History 4.5 gram-156 mg/9.2 gram powder pkt (Arginaid) zinc oxide 20 % topical ointment 1 applic topical UD 05/29/22 05/29/22 History zinc sulfate 50 mg zinc (220 mg) 50 mg PO DAILY 05/29/22 05/29/22 History capsule Past Med/Surg History Medical History Acromioclavicular joint separation Atrial fibrillation CAD (coronary artery disease) "LEONA to LAD cath 2015 - moderate non obstructive disease" Carotid stenosis, bilateral Cerebral amyloid angiopathy Clavicle fracture Closed left fibular fracture Contraindication to anticoagulation therapy Depression DM type 2 (diabetes mellitus, type 2) Dyslipidemia End stage renal disease Falls frequently Fracture, humerus GERD (gastroesophageal reflux disease) HTN (hypertension) IBS (irritable bowel syndrome) Nontraumatic intracerebral hemorrhage Palliative care encounter Pressure injury of back, unstageable Seizure disorder Surgical History AV fistula H/O sinus surgery History of total left knee replacement S/P cholecystectomy Social History Smoking Status: Never smoker Second Hand Exposure: Yes; Hx Alcohol Use: No Hx Substance Use: No Preferred Language: Korean Communication Ability: Effective Willow Analyst Required: No Beliefs That Will Affect Care: Spiritual marital status: / Current Living Situation: Group Home Current Living Situation Comment: lives alone Other Information That Helps Us Care for You: No Feels Safe at Home: Yes Safety Concerns: Feels Safe At This Time Assistive Devices: Denture - Upper, Denture - Lower, Glasses, Oxygen - Continuous and Wheelchair Review of Systems Review of Systems: As per HPI, all other systems reviewed and negative Physical Exam Physical Exam: GENERAL: Slightly uncomfortable, intermittent lethargy, no respiratory distress SKIN: Pallor, warm HEENT: Pale, palpebral conjunctivae, no ptosis, dry buccal mucosa, nasal cannula in place NECK : Supple, short neck no tenderness CHEST : decreased breath sounds, no tenderness HEART : Irregular, systolic murmur ABDOMEN: Some distention, nontender EXTREMITIES : Minimal LE swelling, no LE tenderness, no other conspicuous deformities noted NEUROLOGIC : Intermittent lethargy, no facial asymmetry, gait and stance not assessed Results & Data Results & Data ([facility]) Vital Signs (Past 12 Hours) Vital Signs Temp Pulse Resp BP BP Pulse Ox O2 Del Method 05/29/22 18:10 96 H 18 98 05/29/22 18:09 92 H 21 98 05/29/22 18:09 109/75 05/29/22 18:00 99 H 20 97 05/29/22 17:58 102 H 21 97 05/29/22 17:58 121/61 05/29/22 17:50 99 H 19 98 05/29/22 17:49 99 H 23 99 05/29/22 18:01 90 19 98 Nasal Cannula 05/29/22 17:57 36.6 C 21 121/61 98 Nasal Cannula 05/29/22 17:57 90 Nasal Cannula 05/29/22 17:47 36.6 C 98 H 21 97 Nasal Cannula O2 Flow Rate 05/29/22 18:10 05/29/22 18:09 05/29/22 18:09 05/29/22 18:00 05/29/22 17:58 05/29/22 17:58 05/29/22 17:50 05/29/22 17:49 05/29/22 18:01 4 05/29/22 17:57 4 05/29/22 17:57 4 05/29/22 17:47 4 Laboratory Results Laboratory Results WBC 6.18 K/ul (4.8-10.8) 05/29/22 17:52 RBC 3.69 M/uL (4.20-5.40) L 05/29/22 17:52 Hgb 12.0 g/dl (12.0-16.0) 05/29/22 17:52 Hct 38.2 % (37.0-47.0) 05/29/22 17:52 MCV 103.5 fL (80.0-100.0) H 05/29/22 17:52 MCH 32.5 pg (25.0-34.0) 05/29/22 17:52 MCHC 31.4 g/dL (32.0-36.0) L 05/29/22 17:52 RDW Std Deviation 63.6 fL (36.4-46.3) H 05/29/22 17:52 RDW Coeff of Edin 16.9 % (11.5-14.5) H 05/29/22 17:52 Plt Count 100 K/uL (130-400) L 05/29/22 17:52 MPV 13.3 fL (9.4-12.4) H 05/29/22 17:52 Immature Gran % (Auto) 0.5 % 05/29/22 17:52 Neut % (Auto) 44.4 % 05/29/22 17:52 Lymph % (Auto) 43.9 % 05/29/22 17:52 [place] % (Auto) 7.8 % 05/29/22 17:52 Eos % (Auto) 2.8 % 05/29/22 17:52 Baso % (Auto) 0.6 % 05/29/22 17:52 Neut # (Auto) 2.75 K/uL (1.40-6.50) 05/29/22 17:52 Lymph # (Auto) 2.71 K/uL (1.2-3.4) 05/29/22 17:52 [place] # (Auto) 0.48 K/uL (0.11-0.59) 05/29/22 17:52 Eos # (Auto) 0.17 K/uL (0-0.50) 05/29/22 17:52 Baso # (Auto) 0.04 K/uL (0-0.2) 05/29/22 17:52 Immature Gran # (Auto) 0.03 K/uL (0.01-0.20) 05/29/22 17:52 Absolute Nucleated RBC 0.02 K/uL (0-0.12) 05/29/22 17:52 Nucleated RBC % (auto) 0.3 % 05/29/22 17:52 ESR 34 mm/hr (0-30) H 05/29/22 17:52 PT Cancelled 05/29/22 17:52 INR Cancelled 05/29/22 17:52 APTT Cancelled 05/29/22 17:52 PTT Ratio Cancelled 05/29/22 17:52 VBG pH 7.37 (7.36-7.41) 05/29/22 17:52 VBG pCO2 59 mmHg (38-50) H 05/29/22 17:52 VBG pO2 31 mmHg 05/29/22 17:52 VBG HCO3 34 mmol/L 05/29/22 17:52 VBG O2 Saturation < 60.0 % 05/29/22 17:52 VBG Base Excess 6.9 mEq/L 05/29/22 17:52 Sodium 141 mmol/L (136-145) 05/29/22 17:52 Potassium 3.4 mmol/L (3.5-5.1) L 05/29/22 17:52 Chloride 100 mmol/L (98-107) 05/29/22 17:52 Carbon Dioxide 33 mmol/L (21-32) H 05/29/22 17:52 Anion Gap 8 (3-11) 05/29/22 17:52 BUN 26 mg/dl (6-23) H 05/29/22 17:52 Creatinine 4.82 mg/dl (0.6-1.2) H* 05/29/22 17:52 Est Cr Clr Drug Dosing Not Reportable 05/29/22 17:52 Est GFR ( Amer) 9.3 ml/min 05/29/22 17:52 Est GFR (Non-Af Amer) 8.1 ml/min 05/29/22 17:52 BUN/Creatinine Ratio 5.4 (10-20) L 05/29/22 17:52 Glucose 87 mg/dl (70-99(Fasting)) 05/29/22 17:52 Lactate 1.4 mmol/L (0.4-2.0) 05/29/22 17:52 Calcium 8.9 mg/dl (8.5-10.1) 05/29/22 17:52 Magnesium 1.9 mg/dl (1.7-2.4) 05/29/22 17:52 Total Bilirubin 0.6 mg/dl (0.2-1.0) 05/29/22 17:52 Direct Bilirubin 0.2 mg/dl (0-0.2) 05/29/22 17:52 AST 48 U/L (13-39) H 05/29/22 17:52 ALT 26 U/L (7-52) 05/29/22 17:52 Alkaline Phosphatase 61 U/L (34-104) 05/29/22 17:52 Troponin I High Sens 1340.9 pg/ml (0-14) H* 05/29/22 17:52 Total Protein 5.6 gm/dl (6.0-8.3) L 05/29/22 17:52 Albumin 2.9 gm/dl (3.4-5.0) L 05/29/22 17:52 Procalcitonin 0.63 ng/ml (0-0.5) H 05/29/22 17:52 Digoxin 0.9 ng/ml (0.8-2.0) 05/29/22 17:52 SARS-CoV-2 (PCR) POSITIVE (Negative) A* 05/29/22 17:58 Influenza Type A (PCR) Positive (Neg) A* 05/29/22 17:58 Influenza Type B (PCR) Negative (Neg) 05/29/22 17:58 RSV (RT-PCR) Negative (Neg) 05/29/22 17:58 Impressions Chest X-Ray 05/29/22 17:49 XR chest 1V portable CLINICAL HISTORY: Sepsis. COMPARISON STUDY: Chest CT May 14, 2022 and chest radiograph May 17, 2022. FINDINGS: Patient is rotated. Small left pleural effusion is noted. Left lower lung airspace opacity has progressed. There is also a small right pleural effusion with hazy right basilar opacity which is similar to prior exam. Cardiomegaly is again noted. Mild pulmonary edema has slightly improved. IMPRESSION: 1. Small bilateral pleural effusions with increase in left basilar opacity which could reflect atelectasis or pneumonia. 2. Cardiomegaly. Slight improvement in pulmonary edema. ACT 112: Negative or not required by law. Electronically signed by: Andrews Gauthier M.D. 05/29/2022 6:30 PM Diagnostic Findings EKG as per my interpretation : Rate 100, A. fib, LAD, LAFB, septal infarct, no ischemia
[2022-05-29] MEDS ORDERED: MAGNESIUM SULFATE / D5W 1 GM/100 ML BAG IV ONE (19:20)
[2022-05-29] MEDS ORDERED: methylPREDNISolone 40 MG in SYRINGE 0 ML IV STA (19:47)
[2022-05-29] MEDS ORDERED: dexAMETHasone 6 MG in SYRINGE 0 ML IV ONE (20:00)
[2022-05-29] MEDS ORDERED: ALBUMIN 25% 100 mL 25 GM/100 ML VIAL IV ONE (20:29)
[2022-05-29] MEDS ORDERED: DEXTROSE 50% 50 ML SYRINGE IV PRN (21:29)
[2022-05-29] MEDS ORDERED: GLUCOSE 10 TAB/TUBE PO PRN (21:29)
[2022-05-29] MEDS ORDERED: CARBOHYDRATES FOR HYPOGLYCEMIA PO PRN (21:29)
[2022-05-29] MEDS ORDERED: ACETAMINOPHEN 325 MG TAB PO PRN (21:29)
[2022-05-29] MEDS ORDERED: GLUCAGON FOR INJ 1 MG VIAL SQ PRN (21:29)
[2022-05-29] MEDS ORDERED: GLUCOSE 40% GEL 15 GM TUBE PO PRN (21:29)
[2022-05-29] MEDS ORDERED: PROMETHAZINE HCL 12.5 MG in SODIUM CHLORIDE 0.9% 50 ML IV PRN (21:29)
[2022-05-29] MEDS: INSULIN ASPART PER UNIT SC SCH (22:46)
[2022-05-29] MEDS: LANTUS PER UNIT CHARGE SQ SCH (22:49)
[2022-05-29] MEDS ORDERED: PNEUMOCOCCAL POLYSACCHARIDES 25 MCG/0.5 ML VIAL/SYR IM ONE (23:59)
[2022-05-30] MEDS ORDERED: ALBUMIN 25% 100 mL 25 GM/100 ML VIAL IV ONE (01:00)
[2022-05-30] MEDS: LEVALBUTEROL TARTRATE 15 GM HFA.AER.AD INH SCH ×4 (02:11→20:10)
[2022-05-30] MEDS: PIPERACILLIN/TAZOBACTAM 3.375 GM in DEXTROSE 5% 100 ML IV SCH ×2 (03:13→17:26)
[2022-05-30] MEDS: levETIRAcetam 500 MG TAB PO SCH ×3 (06:04→21:34)
[2022-05-30 06:19] LABS: Calcium 8.7 mg/dl (8.5-10.1); Potassium 4.2 mmol/L (3.5-5.1)
[2022-05-30 06:33] LABS: BUN Creatinine Ratio 5.5 (10-20); Est GFR (African American) 8.1 ml/min
[2022-05-30 06:37] LABS: Hematocrit (blood only) 32.6 % (37.0-47.0); Hemoglobin 10.3 g/dl (12.0-16.0); Mean Corpuscular Hemoglobin 32.3 pg (25.0-34.0); Mean Corpuscular Hgb Conc 31.6 g/dL (32.0-36.0); Mean Corpuscular Volume 102.2 fL (80.0-100.0); Mean Platelet Volume 13.6 fL (9.4-12.4); Platelet Count 82 K/uL (130-400); RDW Coefficient of Variation 16.7 % (11.5-14.5); RDW Standard Deviation 62.8 fL (36.4-46.3); Red Blood Count 3.19 M/uL (4.20-5.40); White Blood Count 3.24 K/ul (4.8-10.8)
[2022-05-30 07:06] LABS: Basophils # (auto) 0.02 K/uL (0-0.2); Basophils % (auto) 0.6 %; Immature Granulocytes # (auto) 0.02 K/uL (0.01-0.20); Immature Granulocytes % (auto) 0.6 %; Lymphocytes # (auto) 0.97 K/uL (1.2-3.4); Lymphocytes % (auto) 29.9 %; Monocytes # (auto) 0.14 K/uL (0.11-0.59); Monocytes % (auto) 4.3 %; Neutrophils # (auto) 2.09 K/uL (1.40-6.50); Neutrophils % (auto) 64.6 %; Ovalocytes 2+; Platelet Estimate Decreased (Normal)
[2022-05-30] MEDS: INSULIN ASPART PER UNIT SC SCH ×4 (08:48→21:40)
[2022-05-30] MEDS: CALCITRIOL 0.25 MCG CAPSULE PO SCH (08:49)
[2022-05-30] MEDS: ADVANCED PROBIOTIC 1250 MG CAPSULE PO SCH (08:49)
[2022-05-30] MEDS: DOCUSATE SODIUM 100 MG CAP PO SCH (08:50)
[2022-05-30] MEDS: dexAMETHasone 6 MG in SYRINGE 0 ML IV SCH (08:50)
[2022-05-30] MEDS: ASPIRIN 81 MG ECTAB PO SCH (08:50)
[2022-05-30] MEDS: ATORVASTATIN 40 MG TAB PO SCH (08:50)
--- NOTE | 2022-05-30 09:55 | Electrocardiogram Report ---
Test Reason : Blood Pressure : / mmHG Vent. Rate : 098 BPM Atrial Rate : 104 BPM P-R Int : 000 ms QRS Dur : 086 ms QT Int : 344 ms P-R-T Axes : 000 -57 008 degrees QTc Int : 439 ms Atrial fibrillation Left axis deviation Anterior infarct (cited on or before 21-FEB-2022) Abnormal ECG When compared with ECG of 05-MAY-2022 09:02, No significant change was found Confirmed by Alan Her ([id number]) on 05/30/2022 9:55:08 AM Referred By: REFERRED SELF Confirmed By:Alan Her
[2022-05-30] MEDS ORDERED: REMDESIVIR 200 mg: Day 1 IV ONE (11:15)
--- NOTE | 2022-05-30 14:55 | Hospitalist Progress Note ---
Date of Service May 30, 2022 Assessment & Plan (1) Acute hypoxemic respiratory failure: Plan: Per admitting service notes with addendum: Acute on chronic hx COPD/nocturnal hypoxemia/pulm hypertension as per records Multifactorial : Severe COVID-19 pneumonia HCAP possible aspiration, no overt sepsis for now Nasal MRSA: Negative Blood cultures: Negative Chest x-ray: 1. Small bilateral pleural effusions with increase in left basilar opacity which could reflect atelectasis or pneumonia. 2. Cardiomegaly. Slight improvement in pulmonary edema. Continue remdesivir, Decadron day #1 Continue Zosyn day #1 Wean of oxygen accordingly Speech therapy recommendations noted-no signs of overt aspiration Troponin elevation secondary to above in the setting of kidney dysfunction hx chronic systolic heart failure (EF 40 to 45%, TTE 2021)/ESRD on HD, some congestion in the imaging hx CAD sp stenting valvular heart disease (severe TR, mild /MR ) history of recurrent CVA HTN, BP on the lower side hyperlipidemia on statin Rx atrial fibrillation, rate controlled off anticoagulation due to hx ICH hx cerebral amyloid angiopathy as per records hx posttraumatic seizures on Keppra prophylaxis DM2 diet controlled, well-controlled as of recent hemoglobin A1c of 5.4 last May 2022 chronic anemia, hemoglobin at baseline episodic thrombocytopenia DVT prophylaxis. SCDs Re: Thrombocytopenia DNR as per patient's prior directives. Admission and Anticipated Discharge Date Admission Date: May 29, 2022 Subjective Follow-up for hypoxia, COVID infection, etc. Seen sitting up in bed, comfortable, not in distress, on 2 L of oxygen States she feels improved compared to yesterday Breathing is improving, has occasional cough, dry No chest pain, palpitation, dizziness, nausea vomiting No other symptoms Review of Systems Review of Systems: all noted and negative except for above Physical Exam Physical Exam: General- oriented x 3, not in distress, speaks in sentences with no effort or accessory muscle use Eyes- anicteric Neck- no JVD Lungs-Left lower lobe crackles, clear on the right Heart- normal rate, regular rhythm; no murmurs Abdomen- normal bowel sounds, nondistended, soft, no tenderness Extremities- no pretibial edema, no calf tenderness Neuro- alert, oriented x 3; no gross focal neurologic deficits Skin- warm & dry Results & Data Results & Data ([facility]) Vital Signs (Past 12 Hours) Vital Signs Temp Pulse Resp BP Pulse Ox O2 Del Method O2 Flow Rate 05/30/22 13:21 77 18 96 Oxymask 2 05/30/22 11:34 36.9 C 82 20 108/63 95 Oxymask 2 05/30/22 07:47 37.1 C 91 H 18 108/63 96 Oxymask 3 05/30/22 07:21 77 18 99 Oxymask 3 05/30/22 05:57 103/64 all noted and reviewed including below
--- NOTE | 2022-05-30 15:28 | Nephrology Consultation ---
Date of Consultation May 30, 2022 Assessment & Plan (1) End stage renal disease: defer HD for today given hypotension, plan to start remdesivir HD tomorrow first shift (2) COVID-19: per OP dialysis unit, pt sx started 05/24 and she tested + on 05/25. after discussion w/ hospitalist/ pharmacy and quick review in conjunction w/ pharmacy of literature will start 5 day course of remdesivir today >> 200 mg IV x 1 today then 100 mg daily x 4 days given after HD on HD days >>hospitalist to check cmp and coags daily to monitor for hepatic toxicity History of Present Illness Reason for Consultation: ESRD on HD Requesting Physician: Dr Blackman Attending Physician: Jaylen Rudolph MD History of Present Illness 76 y/o F whom I'm asked to see for dialysis needs was admitted last evening w/ acute hypoxemic respiratory failure after testing positive for covid on 05/26 or 05/27 at her facility. PMH includes cerebral amyloid angiopathy s/p hemorrhagic stroke in 2016 after which coumadin was stopped and c/b seizure, September 2019 embolic event w/ transient aphasia, chronic a fib, CAD, BL carotid disease, ESRD on MWF HD at [facility] via AVF, obesity, chronic ambulatory dysfunction (uses walker at baseline). Has been admitted here w/ falls/fractures 3X since January 2022 as below; also November 2020 w/ closed L fibular fracture. Prior to this in 2018- 20 (approx) had fallen w/ broke collarbone and admitted to OSH. Note that medical records report COPD and restrictive lung disease and chronic hypoxic respiratory failure; however neither COPD or restrictive lung disease has been fully worked up. Pt last saw pulmonary just before the pandemic > she does not use or require 02 at baseline (prior to march 2022); multiple tests were ordered but not completed. Pulmonary note mentions neither COPD nor restrictive lung dz concern but focuses on deconditioning and fluid overload/non adherence to fluid limits for dialysis. She lived independently in an apartment w/ day time caregivers at baseline as of January 2022; local daughter involved in her care. The pt's ambulatory dysfunction worsened considerably in fall 2021; she was ultimately admitted here w/ L humeral fracture in January, managed conservatively. She was d/c to SNF for rehab in early March > by mid month had increasing lethargy / irritability; was treated for UTI w/o much improvement. Series of respiratory infections in March (RSV and bacterial PNA) and May Influenza A (for [facility] she was admitted here 05/04-05/17) and now Covid. Her last OP HD was on 05/27 > she presented under her target weight at 74.5 kg and had 0.3 kg UF. HR prior to tx was 111, BP 114/31. After admission last evening, the patient was started on decadron; also given zosyn to cover for HCAP; also for swallow eval given aspiration concerns. BB dose was lowered given relative hypotension. She is on a face mask 02 when I saw her ; she is alert, cooperative but confused. denies dypsnea or ucontrolled pain. tells me she's been burping a lot lately Allergies Allergy/AdvReac Type Severity Reaction Status Date / Time verapamil Allergy Mild UNKNOWN Verified 05/29/22 18:03 lisinopril AdvReac Mild COUGH Verified 05/29/22 18:03 Home Medications Medication Instructions Recorded Confirmed Type lidocaine-prilocaine 2.5 %-2.5 % 1 applic topical 3XWK 02/25/22 05/29/22 History topical cream allopurinol 300 mg tablet 450 mg PO DAILY #45 tabs 03/01/22 05/29/22 Rx aspirin 81 mg tablet,delayed 162 mg PO DAILY #30 tabs 03/01/22 05/29/22 Rx release atorvastatin 80 mg tablet 80 mg PO DAILY #30 tabs 03/01/22 05/29/22 Rx calcitriol 0.5 mcg capsule 0.5 mcg PO 3XWK #12 caps 03/01/22 05/29/22 Rx docusate sodium 100 mg capsule 200 mg PO DAILY #60 caps 03/01/22 05/29/22 Rx (Colace) glucosamine [id number] 1 tab PO DAILY #30 tabs 03/01/22 05/29/22 Rx rhiannon 1,500 mg-400 unit-100 mg tablet (Glucosamine Daily Complex) lanthanum 1,000 mg chewable tablet 1,000 mg PO TIDM #90 tabs 03/01/22 05/29/22 Rx levetiracetam 500 mg tablet 500 mg PO .BID UD #32 tabs 03/01/22 05/29/22 Rx levetiracetam 500 mg tablet 500 mg PO .TID ON DIALYSIS DAY #15 03/01/22 05/29/22 Rx tabs metoprolol succinate 50 mg 50 mg PO BID 05/04/22 05/29/22 History tablet,extended release 24 hr mirtazapine 15 mg tablet 15 mg PO QPM 05/04/22 05/29/22 History ondansetron 4 mg disintegrating 4 mg PO DAILY 05/04/22 05/29/22 History tablet sennosides 8.6 mg tablet (senna) 8.6 mg PO BID 05/04/22 05/29/22 History L.acidop,casei,lactis,rham-B.lact,shala 2 cap PO DAILY 14 days #28 caps 05/17/22 05/29/22 Rx 625 mg (10 billion cell) capsule (Advanced Probiotic) digoxin 125 mcg (0.125 mg) tablet 0.125 mg PO MoWeFr@1600 30 days 05/17/22 05/29/22 Rx (Digitek) #13 tabs arginine-vitamin C-vitamin E oral 9.2 g PO DAILY 05/29/22 05/29/22 History 4.5 gram-156 mg/9.2 gram powder pkt (Arginaid) zinc oxide 20 % topical ointment 1 applic topical UD 05/29/22 05/29/22 History zinc sulfate 50 mg zinc (220 mg) 50 mg PO DAILY 05/29/22 05/29/22 History capsule Patient History Medical History Acromioclavicular joint separation Atrial fibrillation CAD (coronary artery disease) "LEONA to LAD cath 2015 - moderate non obstructive disease" Carotid stenosis, bilateral Cerebral amyloid angiopathy Clavicle fracture Closed left fibular fracture Contraindication to anticoagulation therapy Depression DM type 2 (diabetes mellitus, type 2) Dyslipidemia End stage renal disease Falls frequently Fracture, humerus GERD (gastroesophageal reflux disease) HTN (hypertension) IBS (irritable bowel syndrome) Nontraumatic intracerebral hemorrhage Palliative care encounter Pressure injury of back, unstageable Seizure disorder Surgical History AV fistula H/O sinus surgery History of total left knee replacement S/P cholecystectomy Social History Smoking Status: Never smoker Second Hand Exposure: Yes; Hx Alcohol Use: No Hx Substance Use: No Preferred Language: Urdu Communication Ability: Impaired Chemical Dependency Nurse Required: No Beliefs That Will Affect Care: Spiritual marital status: / Current Living Situation: [facility] Current Living Situation Comment: lives alone Other Information That Helps Us Care for You: No Feels Safe at Home: Yes Safety Concerns: Feels Safe At This Time Assistive Devices: Hospital Bed, Oxygen - Continuous and Wheelchair Review of Systems Review of Systems: All systems reviewed & are unremarkable except as noted in HPI & below (ROS limited by pt confusion) Physical Exam Constitutional: well developed, well nourished, + frail appearing and cooperative Eyes: EOM intact bilaterally ENMT: Ears: no external ear abnormality Nose: no external nose abnormality Neck: no nuchal rigidity Respiratory: normal respiratory effort Auscultation: + diminished lung sounds Cardiovascular: Rate/Rhythm: + irregularly irregular Extremities: normal capillary refill Gastrointestinal (Abdomen): Inspection/Auscultation: normal bowel sounds Percussion/Palpation: abdomen soft; abdomen nontender occasoinal belcching in exam Musculoskeletal: Extremities: strength 5/5 throughout Skin: no rashes, warm and dry Neurologic: schmidt, fluent speech, no tremor Psychiatric: Orientation: oriented to person and cooperative; + not oriented to place and + not oriented to time Results & Data ([facility]) Vital Signs (Past 12 Hours) Vital Signs Temp Pulse Resp BP Pulse Ox O2 Del Method O2 Flow Rate 05/30/22 13:21 77 18 96 Oxymask 2 05/30/22 11:34 36.9 C 82 20 108/63 95 Oxymask 2 05/30/22 07:47 37.1 C 91 H 18 108/63 96 Oxymask 3 05/30/22 07:21 77 18 99 Oxymask 3 05/30/22 05:57 103/64 Laboratory Results 05/30/22 05:38 05/30/22 05:38 Diagnostic Findings cxr > mild plm edema
[2022-05-30] MEDS: DIGOXIN 0.125 MG TAB PO SCH (17:26)
[2022-05-30] MEDS: LANTUS PER UNIT CHARGE SQ SCH (21:40)
[2022-05-31] MEDS: LEVALBUTEROL TARTRATE 15 GM HFA.AER.AD INH SCH ×2 (01:32→07:16)
[2022-05-31] MEDS: PIPERACILLIN/TAZOBACTAM 3.375 GM in DEXTROSE 5% 100 ML IV SCH ×2 (04:50→17:11)
[2022-05-31 07:31] LABS: Albumin Globulin Ratio 1.2 (0.9-2); Albumin Level 3.1 gm/dl (3.4-5.0); BUN Creatinine Ratio 6.9 (10-20); Bilirubin,Total 0.6 mg/dl (0.2-1.0); Calcium 9.3 mg/dl (8.5-10.1); Creatinine Clr Calc Pharmacy 7.1 ml/min; Est GFR (African American) 6.9 ml/min; Est GFR (Non-African American) 5.9 ml/min; Globulin 2.5 gm/dl (2.5-4.0); Total Protein 5.6 gm/dl (6.0-8.3)
[2022-05-31] MEDS ORDERED: HEPARIN SOD (PORCINE) 1000 UNIT/ML IV ONE (07:47)
[2022-05-31] MEDS ORDERED: SODIUM CHLORIDE 0.9% 1000ML 1,000 ML IV PRN (07:47)
[2022-05-31] MEDS ORDERED: EPOETIN ALFA 4,000 UNIT/ML VIAL IV ONE (07:47)
[2022-05-31] MEDS ORDERED: LEVALBUTEROL TARTRATE 15 GM HFA.AER.AD INH PRN (08:00)
[2022-05-31] MEDS: ADVANCED PROBIOTIC 1250 MG CAPSULE PO SCH (08:14)
[2022-05-31] MEDS: DOCUSATE SODIUM 100 MG CAP PO SCH (08:14)
[2022-05-31] MEDS: ASPIRIN 81 MG ECTAB PO SCH (08:15)
[2022-05-31] MEDS: ATORVASTATIN 40 MG TAB PO SCH (08:15)
[2022-05-31] MEDS: levETIRAcetam 500 MG TAB PO SCH ×2 (08:15→14:13)
[2022-05-31] MEDS: dexAMETHasone 6 MG in SYRINGE 0 ML IV SCH (08:15)
[2022-05-31] MEDS: HEPARIN SOD (PORCINE) 1000 UNIT/ML IV SCH ×2 (11:02→12:04)
--- NOTE | 2022-05-31 12:28 | Dialysis Progress Note ---
Date of Service May 31, 2022 Assessment & Plan (1) End stage renal disease: Plan: HD today next HD tomorrow or 2/2 depending on HD nurse needs and pt clinical status (2) COVID-19: Plan: per OP dialysis unit, pt sx started 05/24 and she tested + on 05/25. after discussion w/ hospitalist/ pharmacy and quick review in conjunction w/ pharmacy of literature, pt on 5 day course of remdesivir today >> 200 mg IV x 1 05/30 then 100 mg daily x 4 days given after HD on HD days >>hospitalist to check cmp and coags daily to monitor for hepatic toxicity Admission and Anticipated Discharge Date Admission Date: May 29, 2022 Subjective more alert today but just as confused; denies pain ; hungry + Review of Systems Review of Systems: All systems reviewed & are unremarkable except as noted in Subjective Physical Exam Constitutional: well developed, well nourished, + frail appearing and cooperative Eyes: EOM intact bilaterally ENMT: Ears: no external ear abnormality Nose: no external nose abnormality Neck: no nuchal rigidity Respiratory: normal respiratory effort Auscultation: + diminished lung sounds Cardiovascular: Rate/Rhythm: + irregularly irregular Extremities: normal capillary refill Gastrointestinal (Abdomen): Inspection/Auscultation: normal bowel sounds Percussion/Palpation: abdomen soft; abdomen nontender Musculoskeletal: Extremities: strength 5/5 throughout Skin: no rashes, warm and dry Psychiatric: Orientation: oriented to person and cooperative; + not oriented to place and + not oriented to time Results & Data ([facility]) Vital Signs (Past 12 Hours) Vital Signs Temp Pulse Pulse Pulse Resp BP BP 05/31/22 12:00 109 H 94/62 L 05/31/22 11:30 106 H 101/71 05/31/22 11:00 108 H 109/58 L 05/31/22 10:30 105 H 102/82 05/31/22 09:00 104 H 05/31/22 09:00 05/31/22 10:00 87 113/70 05/31/22 09:33 36.8 C 90 05/31/22 09:50 36.8 C 100 H 108/66 05/31/22 07:52 37.0 C 104 H 18 124/68 05/31/22 07:17 77 18 05/31/22 03:42 37.3 C 93 H 22 106/75 Pulse Ox O2 Del Method O2 Flow Rate 05/31/22 12:00 05/31/22 11:30 05/31/22 11:00 05/31/22 10:30 05/31/22 09:00 05/31/22 09:00 Oxymask 2 05/31/22 10:00 05/31/22 09:33 05/31/22 09:50 05/31/22 07:52 93 Oxymask 05/31/22 07:17 95 Oxymask 2 05/31/22 03:42 93 Oxymask 2 Laboratory Results 05/30/22 05:38 05/31/22 06:50
[2022-05-31] MEDS: INSULIN ASPART PER UNIT SC SCH ×4 (12:46→21:08)
[2022-05-31] MEDS: METOPROLOL SUCC 25MG EXT REL TAB PO SCH (14:13)
[2022-05-31] MEDS: REMDESIVIR 100mg: Days 2-5 IV SCH (14:14)
--- NOTE | 2022-05-31 18:20 | Hospitalist Progress Note ---
Date of Service May 31, 2022 Assessment & Plan (1) Acute hypoxemic respiratory failure: Plan: Per admitting service notes with addendum: Acute on chronic hx COPD/nocturnal hypoxemia/pulm hypertension as per records Multifactorial : Severe COVID-19 pneumonia HCAP possible aspiration, no overt sepsis for now Nasal MRSA: Negative Blood cultures: Negative Chest x-ray: 1. Small bilateral pleural effusions with increase in left basilar opacity which could reflect atelectasis or pneumonia. 2. Cardiomegaly. Slight improvement in pulmonary edema. 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 SCDs Re: Thrombocytopenia DNR as per patient's prior directives. Disposition anticipate return to [facility] when medically stable Admission and Anticipated Discharge Date Admission Date: May 29, 2022 Subjective Follow-up for acute hypoxia, COVID-19 infection, aspiration pneumonia, etc. Seen sitting up in bed, comfortable, not in distress, in good spirits, on room air States she feels improving overall Breathing is improving, less cough No chest pain, palpitations, dizziness No other symptoms Review of Systems Review of Systems: all noted and negative except for above Physical Exam 2 Physical Exam: General- oriented x 3, not in distress, speaks in sentences with no effort or accessory muscle use Eyes- anicteric Neck- no JVD Lungs- mild rales left base clear on the right Heart- normal rate, regular rhythm; no murmurs Abdomen- normal bowel sounds, nondistended, soft, nontender Extremities- trace pretibial edema, no calf tenderness Neuro- alert, oriented x 3; no gross focal neurologic deficits Skin- warm & dry Results & Data Results & Data ([facility]) Vital Signs (Past 12 Hours) Vital Signs Temp Pulse Pulse Pulse Resp BP BP 05/31/22 16:40 37.1 C 103 H 20 99/58 L 05/31/22 14:00 37.1 C 104 H 92/65 L 05/31/22 13:00 104 H 96/72 L 05/31/22 12:30 112 H 98/62 L 05/31/22 12:00 109 H 94/62 L 05/31/22 11:30 106 H 101/71 05/31/22 11:00 108 H 109/58 L 05/31/22 10:30 105 H 102/82 05/31/22 09:00 104 H 05/31/22 09:00 05/31/22 10:00 87 113/70 05/31/22 09:33 36.8 C 90 05/31/22 09:50 36.8 C 100 H 108/66 05/31/22 07:52 37.0 C 104 H 18 124/68 05/31/22 07:17 77 18 Pulse Ox O2 Del Method O2 Flow Rate 05/31/22 16:40 99 Oxymask 8 05/31/22 14:00 05/31/22 13:00 05/31/22 12:30 05/31/22 12:00 05/31/22 11:30 05/31/22 11:00 05/31/22 10:30 05/31/22 09:00 05/31/22 09:00 Oxymask 2 05/31/22 10:00 05/31/22 09:33 05/31/22 09:50 05/31/22 07:52 93 Oxymask 05/31/22 07:17 95 Oxymask 2 all noted and reviewed including below
[2022-05-31] MEDS: LANTUS PER UNIT CHARGE SQ SCH (21:49)
[2022-06-01] MEDS: levETIRAcetam 500 MG TAB PO SCH ×4 (05:18→20:25)
[2022-06-01] MEDS: PIPERACILLIN/TAZOBACTAM 3.375 GM in DEXTROSE 5% 100 ML IV SCH ×2 (05:18→17:23)
[2022-06-01 07:12] LABS: Albumin Globulin Ratio 1.2 (0.9-2); Albumin Level 3.1 gm/dl (3.4-5.0); BUN Creatinine Ratio 6.1 (10-20); Bilirubin,Total 0.7 mg/dl (0.2-1.0); Calcium 9.2 mg/dl (8.5-10.1); Creatinine Clr Calc Pharmacy 10.6 ml/min; Est GFR (African American) 11.4 ml/min; Est GFR (Non-African American) 9.8 ml/min; Globulin 2.6 gm/dl (2.5-4.0); Potassium 3.8 mmol/L (3.5-5.1); Total Protein 5.7 gm/dl (6.0-8.3)
[2022-06-01] MEDS: dexAMETHasone 6 MG in SYRINGE 0 ML IV SCH (10:20)
[2022-06-01] MEDS: CALCITRIOL 0.25 MCG CAPSULE PO SCH (10:21)
[2022-06-01] MEDS: ADVANCED PROBIOTIC 1250 MG CAPSULE PO SCH (10:22)
[2022-06-01] MEDS: ATORVASTATIN 40 MG TAB PO SCH (10:22)
[2022-06-01] MEDS: ASPIRIN 81 MG ECTAB PO SCH (10:22)
[2022-06-01] MEDS: DOCUSATE SODIUM 100 MG CAP PO SCH (10:22)
[2022-06-01] MEDS: INSULIN ASPART PER UNIT SC SCH ×4 (10:32→20:24)
[2022-06-01] MEDS ORDERED: SODIUM CHLORIDE 0.9% 1000ML 1,000 ML IV PRN (12:28)
[2022-06-01] MEDS ORDERED: EPOETIN ALFA 10,000 UNITS/ML VIAL IV ONE (12:28)
[2022-06-01] MEDS ORDERED: HEPARIN SOD (PORCINE) 1000 UNIT/ML IV ONE (12:28)
--- NOTE | 2022-06-01 12:28 | Nephrology Progress Note ---
Date of Service June 01, 2022 Assessment & Plan (1) End stage renal disease: Plan: HD today short tx 2 hrs to optimize respiratory status best we can next HD tomorrow depending on HD nurse needs and pt clinical status (2) COVID-19: Plan: per OP dialysis unit, pt sx started 05/24 and she tested + on 05/25. after discussion w/ hospitalist/ pharmacy and quick review in conjunction w/ pharmacy of literature, pt on 5 day course of remdesivir today >> 200 mg IV x 1 05/30 then 100 mg daily x 4 days given after HD on HD days >>hospitalist to check cmp and coags daily to monitor for hepatic toxicity Admission and Anticipated Discharge Date Admission Date: May 29, 2022 Subjective pt basically NPO; aspirates easily; some lower BG; sats were mid 90s on 3L NC yest to 80s on 8-10L later in day after attempting jello/pudding Review of Systems Review of Systems: All systems reviewed & are unremarkable except as noted in Subjective Physical Exam Constitutional: well developed, well nourished, + frail appearing and coope rative Eyes: EOM intact bilaterally ENMT: Ears: no external ear abnormality Nose: no external nose abnormality Neck: no nuchal rigidity Respiratory: normal respiratory effort Auscultation: + diminished lung sounds Cardiovascular: Rate/Rhythm: + irregularly irregular Extremities: normal capillary refill Gastrointestinal (Abdomen): Inspection/Auscultation: normal bowel sounds Percussion/Palpation: abdomen soft; abdomen nontender Musculoskeletal: Extremities: + abnormal strength (marked generalized weakness; can't hold head up) Skin: no rashes, warm and dry Psychiatric: Orientation: oriented to person and cooperative; + not oriented to place and + not oriented to time Results & Data ([facility]) Vital Signs (Past 12 Hours) Vital Signs Temp Pulse Pulse Resp BP Pulse Ox O2 Del Method 06/01/22 11:40 36.6 C 109 H 18 104/83 90 Nasal Cannula 06/01/22 08:00 89 06/01/22 08:00 Nasal Cannula 06/01/22 03:46 112 H 18 120/87 93 Oxymask O2 Flow Rate 06/01/22 11:40 5 06/01/22 08:00 06/01/22 08:00 3 06/01/22 03:46 5 Laboratory Results 05/30/22 05:38 06/01/22 06:30
[2022-06-01] MEDS: REMDESIVIR 100mg: Days 2-5 IV SCH (13:12)
[2022-06-01] MEDS: HEPARIN SOD (PORCINE) 1000 UNIT/ML IV SCH ×3 (14:34→17:48)
--- NOTE | 2022-06-01 15:14 | Hospitalist Progress Note ---
Date of Service June 01, 2022 Assessment & Plan (1) Acute hypoxemic respiratory failure: Plan: Acute on chronic hx COPD/nocturnal hypoxemia/pulm hypertension as per records Multifactorial : Severe COVID-19 pneumonia HCAP possible aspiration, no overt sepsis for now Nasal MRSA: Negative Blood cultures: Negative Has been on IV Decadron and remdesivir Also getting intravenous Zosyn for aspiration pneumonia , day #3 Still requiring 5 L oxygen to maintain saturation Clinically stable with gradual improvement Anorexia Likely secondary to COVID-19 virus infection Strongly advised to eat and drink more We will hold any insulin for now Chest x-ray: 1. Small bilateral pleural effusions with increase in left basilar opacity which could reflect atelectasis or pneumonia. 2. Cardiomegaly. Slight improvement in pulmonary edema. Atrial fibrillation, rate controlled off anticoagulation due to hx ICH Troponin elevation secondary to above in the setting of kidney dysfunction And could be complicated by demand ischemia secondary to A. fib with RVR Troponin went up to 1340 and reduced to 1024 on same day Doubt any ACS History of chronic systolic heart failure (EF 40 to 45%, TTE 2021)/ESRD on HD -- HD today per Nephro hx CAD sp stenting valvular heart disease (severe TR, mild /MR ) - no cardiac symptoms History of recurrent CVA HTN -- monitor BP Hyperlipidemia on statin Rx History of cerebral amyloid angiopathy as per records 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 SCDs Re: Thrombocytopenia DNR as per patient's prior directives. Disposition anticipate return to [facility] when medically stable Admission and Anticipated Discharge Date Admission Date: May 29, 2022 Subjective 06/01/2022 The patient was seen and examined in telemetry unit and in the COVID room She has been weak and lethargic and remains anorexic Blood sugar is running low around 70s Has minimal shortness of breath at rest but denies any cough and no chest pain Review of Systems Review of Systems: All systems reviewed and are unremarkable except as noted below Physical Exam Physical Exam: Lying in bed comfortably Constitutional: + ill appearing and average body habitus Eyes: PERRL, conjunctivae normal, anicteric sclerae ENMT: external ear and nose normal, oropharynx normal Neck: trachea midline, no thyromegaly Respiratory: + respiratory distress (Minimal respiratory distress) Auscultation: + diminished lung sounds and + crackles (At the bases) Cardiovascular: Rate/Rhythm: + tachycardic and + irregularly irregular Heart Sounds: normal S1 and normal S2; no murmur Extremities: no edema Gastrointestinal (Abdomen): Inspection/Auscultation: normal bowel sounds; abdomen not distended Percussion/Palpation: abdomen soft; abdomen nontender Musculoskeletal: No acute arthritis involving any joint Neurologic: Alert, awake and oriented x3. Generally weak but no focal sensory and/or motor deficit Lymphatic: no cervical or axillary lymphadenopathy Results & Data Results & Data ([facility]) Vital Signs (Past 12 Hours) Vital Signs Temp Pulse Pulse Resp BP Pulse Ox O2 Del Method 06/01/22 11:40 36.6 C 109 H 18 104/83 90 Nasal Cannula 06/01/22 08:00 89 06/01/22 08:00 Nasal Cannula 06/01/22 03:46 112 H 18 120/87 93 Oxymask O2 Flow Rate 06/01/22 11:40 5 06/01/22 08:00 06/01/22 08:00 3 06/01/22 03:46 5 Laboratory Results BMP 06/01/22 06:30 Sodium 139 Potassium 3.8 Chloride 101 Carbon Dioxide 25 BUN 25 H Creatinine 4.09 H D Glucose 90 Calcium 9.2 Liver Function 06/01/22 Range/Units 06:30 Total Bilirubin 0.7 (0.2-1.0) mg/dl AST 39 (13-39) U/L ALT 24 (7-52) U/L Alkaline Phosphatase 57 (34-104) U/L Albumin 3.1 L (3.4-5.0) gm/dl Medications Administered Current Inpatient Medications Acetaminophen (Acetaminophen 325 Mg Tab) 650 mg PO Q4H PRN PRN Reason: Pain or Fever Stop: 06/28/22 21:28 Aspirin (Aspirin 81 Mg Ectab) 162 mg PO DAILY [facility] Stop: 06/29/22 08:59 Last Admin: 06/01/22 10:22 Dose: 162 mg Atorvastatin Calcium (Atorvastatin 40 Mg Tab) 80 mg PO DAILY [facility] Stop: 06/29/22 08:59 Last Admin: 06/01/22 10:22 Dose: 80 mg Calcitriol (Calcitriol 0.25 Mcg Capsule) 0.5 mcg PO MoWeFr@0900 [facility] Stop: 06/29/22 08:59 Last Admin: 06/01/22 10:21 Dose: 0.5 mcg Dextrose (Dextrose 50% 50 Ml Syringe) 25 - 50 ml IV UD PRN; Protocol PRN Reason: Hypoglycemia Protocol Stop: 06/28/22 21:28 Last Admin: 06/01/22 11:51 Dose: 25 ml Digoxin (Digoxin 0.125 Mg Tab) 0.125 mg PO MoWeFr@1600 [facility] Stop: 06/29/22 15:59 Last Admin: 05/30/22 17:26 Dose: 0.125 mg Docusate Sodium (Docusate Sodium 100 Mg Cap) 200 mg PO DAILY [facility] Stop: 06/29/22 08:59 Last Admin: 06/01/22 10:22 Dose: 200 mg Glucagon (Glucagon For Inj 1 Mg Vial) 1 mg SQ UD PRN; Protocol PRN Reason: Hypoglycemia Protocol Stop: 06/28/22 21:28 Glucose (Glucose 40% Gel 15 Gm Tube) 15 - 30 gm PO UD PRN; Protocol PRN Reason: Hypoglycemia Protocol Stop: 06/28/22 21:28 Glucose (Glucose 10 Tab/Tube) 4 - 8 tab PO UD PRN; Protocol PRN Reason: Hypoglycemia Treatment Stop: 06/28/22 21:28 Piperacillin Sod/Tazobactam (Sod 3.375 gm/ Dextrose) 115 mls @ 28.75 mls/hr IV Q12H [facility]; Protocol Stop: 06/05/22 03:59 Last Infusion: 06/01/22 10:34 Dose: Infused Dexamethasone 6 mg/ Syringe 1.5 mls @ 1 mls/min IV DAILY [facility] Stop: 06/29/22 08:59 Last Admin: 06/01/22 10:20 Dose: 1 mls/min Promethazine HCl 12.5 mg/ (Sodium Chloride) 50.5 mls @ 202 mls/hr IV Q6H PRN PRN Reason: Nausea And Vomiting Stop: 06/28/22 21:28 Remdesivir 100 mg/ Sodium (Chloride) 250 mls @ 250 mls/hr IV Q24H [facility]; Protocol Stop: 06/03/22 14:59 Last Infusion: 06/01/22 14:35 Dose: Infused Sodium Chloride (Nss 1000ml) 1,000 mls @ 0 mls/hr IV .Q0M PRN PRN Reason: For Hemodialysis Use ONLY Stop: 06/01/22 18:27 Insulin Aspart (Insulin Aspart Per Unit) 0 units SC ACHS [facility] Stop: 06/28/22 21:28 Last Admin: 06/01/22 13:27 Dose: Not Given Insulin Glargine (Lantus Per Unit Charge) 5 units SQ HS [facility] Stop: 06/28/22 21:28 Last Admin: 05/31/22 21:49 Dose: 5 units Lactobacillus Acidophilus (Advanced Probiotic 1250 Mg Capsule) 2 cap PO DAILY [facility] Stop: 06/29/22 08:59 Last Admin: 06/01/22 10:22 Dose: 2 cap Levalbuterol HCl (Levalbuterol Tartrate 15 Gm Hfa.Aer.Ad) 2 puffs INH Q6R PRN PRN Reason: Wheezing Stop: 06/29/22 00:59 Levetiracetam (Levetiracetam 500 Mg Tab) 500 mg PO MoWeFr@0600,1200,2000 [facility] Stop: 06/29/22 05:59 Last Admin: 06/01/22 13:13 Dose: 500 mg Levetiracetam (Levetiracetam 500 Mg Tab) 500 mg PO SuTuThSa@0800,1200 [facility] Stop: 06/30/22 07:59 Last Admin: 06/01/22 10:22 Dose: 500 mg Metoprolol Succinate (Metoprolol Succ 25mg Ext Rel Tab) 25 mg PO SuTuThSa@0900 [facility] Stop: 06/30/22 08:59 Last Admin: 05/31/22 14:13 Dose: 25 mg Miscellaneous (Lanthanum: Order Awaiting Action) 1 each N/A QS [facility] Stop: 06/29/22 00:00 Last Admin: 06/01/22 10:33 Dose: Not Given Miscellaneous (Carbohydrates For Hypoglycemia ) 15 - 30 gm PO UD PRN PRN Reason: Hypoglycemia Protocol Stop: 06/28/22 21:28
[2022-06-01] MEDS: DIGOXIN 0.125 MG TAB PO SCH (17:24)
[2022-06-01] MEDS: LANTUS PER UNIT CHARGE SQ SCH (20:40)
[2022-06-02] MEDS: PIPERACILLIN/TAZOBACTAM 3.375 GM in DEXTROSE 5% 100 ML IV SCH ×2 (05:56→16:53)
[2022-06-02] MEDS ORDERED: SODIUM CHLORIDE 0.9% 1000ML 1,000 ML IV PRN (07:06)
[2022-06-02] MEDS ORDERED: HEPARIN SOD (PORCINE) 1000 UNIT/ML IV ONE (07:11)
[2022-06-02] MEDS ORDERED: EPOETIN ALFA 10,000 UNITS/ML VIAL IV ONE (07:11)
[2022-06-02 08:17] LABS: Basophils # (auto) 0.01 K/uL (0-0.2); Basophils % (auto) 0.1 %; Hematocrit (blood only) 39.4 % (37.0-47.0); Hemoglobin 12.9 g/dl (12.0-16.0); Immature Granulocytes # (auto) 0.18 K/uL (0.01-0.20); Immature Granulocytes % (auto) 2.5 %; Lymphocytes # (auto) 1.22 K/uL (1.2-3.4); Lymphocytes % (auto) 16.9 %; Mean Corpuscular Hgb Conc 32.7 g/dL (32.0-36.0); Mean Corpuscular Volume 97.8 fL (80.0-100.0); Mean Platelet Volume 13.5 fL (9.4-12.4); Monocytes # (auto) 0.63 K/uL (0.11-0.59); Monocytes % (auto) 8.7 %; Neutrophils # (auto) 5.19 K/uL (1.40-6.50); Neutrophils % (auto) 71.8 %; Nucleated RBC # (auto) 0.05 K/uL (0-0.12); Nucleated RBC % (auto) 0.7 %; Platelet Count 144 K/uL (130-400); RDW Coefficient of Variation 16.8 % (11.5-14.5); RDW Standard Deviation 60.8 fL (36.4-46.3); Red Blood Count 4.03 M/uL (4.20-5.40); White Blood Count 7.23 K/ul (4.8-10.8)
[2022-06-02] MEDS: dexAMETHasone 6 MG in SYRINGE 0 ML IV SCH (08:20)
[2022-06-02] MEDS: ASPIRIN 81 MG ECTAB PO SCH (08:20)
[2022-06-02] MEDS: ADVANCED PROBIOTIC 1250 MG CAPSULE PO SCH (08:20)
[2022-06-02] MEDS: ATORVASTATIN 40 MG TAB PO SCH (08:20)
[2022-06-02 08:51] LABS: Albumin Level 2.9 gm/dl (3.4-5.0); Bilirubin,Total 0.7 mg/dl (0.2-1.0); Calcium 9.5 mg/dl (8.5-10.1); Magnesium 2.1 mg/dl (1.7-2.4)
[2022-06-02 09:06] LABS: Albumin Globulin Ratio 1.1 (0.9-2); BUN Creatinine Ratio 7.7 (10-20); Creatinine Clr Calc Pharmacy 8.6 ml/min; Est GFR (African American) 8.8 ml/min; Est GFR (Non-African American) 7.6 ml/min; Globulin 2.7 gm/dl (2.5-4.0); Phosphorus 4.2 mg/dl (2.5-4.9); Total Protein 5.6 gm/dl (6.0-8.3)
[2022-06-02] MEDS: INSULIN ASPART PER UNIT SC SCH ×4 (09:57→20:13)
[2022-06-02] MEDS: DOCUSATE SODIUM 100 MG CAP PO SCH (09:58)
[2022-06-02] MEDS: HEPARIN SOD (PORCINE) 1000 UNIT/ML IV SCH ×2 (10:32→11:24)
[2022-06-02] MEDS: REMDESIVIR 100mg: Days 2-5 IV SCH (13:30)
--- NOTE | 2022-06-02 14:19 | Hospitalist Progress Note ---
Date of Service June 02, 2022 Assessment & Plan (1) Acute hypoxemic respiratory failure: Plan: Metabolic encephalopathy Noted to be only lethargic/confusion admit admission hx COPD/nocturnal hypoxemia/pulm hypertension as per records Multifactorial : Severe COVID-19 pneumonia HCAP possible aspiration, no overt sepsis for now Nasal MRSA: Negative Blood cultures: Negative Has been on IV Decadron and remdesivir Also getting intravenous Zosyn for aspiration pneumonia , day #4 Still requiring 5 L oxygen to maintain saturation Clinically stable with gradual improvement Has been saturating on room air Anorexia Likely secondary to COVID-19 virus infection Strongly advised to eat and drink more We will hold any insulin for now Has been tolerating advance diet Chest x-ray: 1. Small bilateral pleural effusions with increase in left basilar opacity which could reflect atelectasis or pneumonia. 2. Cardiomegaly. Slight improvement in pulmonary edema. Atrial fibrillation, rate controlled off anticoagulation due to hx ICH Troponin elevation Troponin went up to 1340 and reduced to 1024 on same day Troponin elevation secondary to above in the setting of kidney dysfunction And could be complicated by demand ischemia secondary to A. fib with RVR Doubt any ACS History of chronic systolic heart failure (EF 40 to 45%, TTE 2021)/ ESRD on HD -- HD today per Nephro hx CAD sp stenting valvular heart disease (severe TR, mild /MR ) - no cardiac symptoms -Appreciate nephrology input and recommendation History of recurrent CVA HTN -- monitor BP Hyperlipidemia on statin Rx History of cerebral amyloid angiopathy as per records 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 SCDs Re: Thrombocytopenia DNR as per patient's prior directives. Disposition anticipate return to [facility] when medically stable Will start PT and OT evaluation Possible discharge in a day or 2 Admission and Anticipated Discharge Date Admission Date: May 29, 2022 Subjective 06/01/2022 The patient was seen and examined in telemetry unit and in the COVID room She has been weak and lethargic and remains anorexic Blood sugar is running low around 70s Has minimal shortness of breath at rest but denies any cough and no chest pain 06/02/2022 The patient was seen and examined in telemetry unit and in the COVID room She has been feeling a little better today and has been tolerating advance diet She has been saturating normally on room air Review of Systems Review of Systems: All systems reviewed and are unremarkable except as noted below Physical Exam Physical Exam: Lying in bed comfortably Constitutional: + ill appearing and average body habitus Eyes: PERRL, conjunctivae normal, anicteric sclerae ENMT: external ear and nose normal, oropharynx normal Neck: trachea midline, no thyromegaly Respiratory: + respiratory distress (Minimal respiratory distress) Auscultation: + diminished lung sounds and + crackles (At the bases) Cardiovascular: Rate/Rhythm: + tachycardic and + irregularly irregular Heart Sounds: normal S1 and normal S2; no murmur Extremities: no edema Gastrointestinal (Abdomen): Inspection/Auscultation: normal bowel sounds; abdomen not distended Percussion/Palpation: abdomen soft; abdomen nontender Musculoskeletal: No acute arthritis involving any joint Neurologic: normal touch/pain/proprioception and moves all extremities; no focal motor deficits Lymphatic: no cervical or axillary lymphadenopathy Results & Data Results & Data ([facility]) Vital Signs (Past 12 Hours) Vital Signs Temp Pulse Pulse Pulse Resp BP BP 06/02/22 12:56 37.1 C 108 H 90/71 L 06/02/22 12:30 113 H 95/77 L 06/02/22 12:00 106 H 110/71 06/02/22 11:30 107 H 104/52 L 06/02/22 11:00 105 H 95/61 L 06/02/22 10:30 94 H 114/64 06/02/22 08:00 92 H 06/02/22 08:00 06/02/22 10:00 88 121/66 06/02/22 09:40 94 H 106/79 06/02/22 09:10 36.5 C 100 H 06/02/22 09:23 93 H 99/76 L 06/02/22 05:53 36.6 C 98 H 18 108/71 Pulse Ox O2 Del Method 06/02/22 12:56 06/02/22 12:30 06/02/22 12:00 06/02/22 11:30 06/02/22 11:00 06/02/22 10:30 06/02/22 08:00 06/02/22 08:00 Room Air 06/02/22 10:00 06/02/22 09:40 06/02/22 09:10 06/02/22 09:23 06/02/22 05:53 93 Room Air Laboratory Results Short CBC 06/02/22 Range/Units 07:01 WBC 7.23 (4.8-10.8) K/ul Hgb 12.9 (12.0-16.0) g/dl Hct 39.4 (37.0-47.0) % Plt Count 144 (130-400) K/uL BMP 06/02/22 07:01 Sodium 141 Potassium 4.0 Chloride 100 Carbon Dioxide 27 BUN 39 H Creatinine 5.05 H* D Glucose 94 Calcium 9.5 Liver Function 06/02/22 Range/Units 07:01 Total Bilirubin 0.7 (0.2-1.0) mg/dl AST 34 (13-39) U/L ALT 24 (7-52) U/L Alkaline Phosphatase 57 (34-104) U/L Albumin 2.9 L (3.4-5.0) gm/dl Medications Administered Current Inpatient Medications Acetaminophen (Acetaminophen 325 Mg Tab) 650 mg PO Q4H PRN PRN Reason: Pain or Fever Stop: 06/28/22 21:28 Aspirin (Aspirin 81 Mg Ectab) 162 mg PO DAILY [facility] Stop: 06/29/22 08:59 Last Admin: 06/02/22 08:20 Dose: 162 mg Atorvastatin Calcium (Atorvastatin 40 Mg Tab) 80 mg PO DAILY [facility] Stop: 06/29/22 08:59 Last Admin: 06/02/22 08:20 Dose: 80 mg Calcitriol (Calcitriol 0.25 Mcg Capsule) 0.5 mcg PO MoWeFr@0900 [facility] Stop: 06/29/22 08:59 Last Admin: 06/01/22 10:21 Dose: 0.5 mcg Dextrose (Dextrose 50% 50 Ml Syringe) 25 - 50 ml IV UD PRN; Protocol PRN Reason: Hypoglycemia Protocol Stop: 06/28/22 21:28 Last Admin: 06/01/22 11:51 Dose: 25 ml Digoxin (Digoxin 0.125 Mg Tab) 0.125 mg PO MoWeFr@1600 [facility] Stop: 06/29/22 15:59 Last Admin: 06/01/22 17:24 Dose: 0.125 mg Docusate Sodium (Docusate Sodium 100 Mg Cap) 200 mg PO DAILY [facility] Stop: 06/29/22 08:59 Last Admin: 06/02/22 09:58 Dose: Not Given Glucagon (Glucagon For Inj 1 Mg Vial) 1 mg SQ UD PRN; Protocol PRN Reason: Hypoglycemia Protocol Stop: 06/28/22 21:28 Glucose (Glucose 40% Gel 15 Gm Tube) 15 - 30 gm PO UD PRN; Protocol PRN Reason: Hypoglycemia Protocol Stop: 06/28/22 21:28 Glucose (Glucose 10 Tab/Tube) 4 - 8 tab PO UD PRN; Protocol PRN Reason: Hypoglycemia Treatment Stop: 06/28/22 21:28 Piperacillin Sod/Tazobactam (Sod 3.375 gm/ Dextrose) 115 mls @ 28.75 mls/hr IV Q12H [facility]; Protocol Stop: 06/05/22 03:59 Last Infusion: 06/02/22 11:23 Dose: Infused Dexamethasone 6 mg/ Syringe 1.5 mls @ 1 mls/min IV DAILY [facility] Stop: 06/29/22 08:59 Last Admin: 06/02/22 08:20 Dose: 1 mls/min Promethazine HCl 12.5 mg/ (Sodium Chloride) 50.5 mls @ 202 mls/hr IV Q6H PRN PRN Reason: Nausea And Vomiting Stop: 06/28/22 21:28 Remdesivir 100 mg/ Sodium (Chloride) 250 mls @ 250 mls/hr IV Q24H [facility]; Protocol Stop: 06/03/22 14:59 Last Admin: 06/02/22 13:30 Dose: 250 mls/hr Insulin Aspart (Insulin Aspart Per Unit) 0 units SC ACHS [facility] Stop: 06/28/22 21:28 Last Admin: 06/02/22 14:21 Dose: Not Given Insulin Glargine (Lantus Per Unit Charge) 5 units SQ HS [facility] Stop: 06/28/22 21:28 Last Admin: 06/01/22 20:40 Dose: Not Given Lactobacillus Acidophilus (Advanced Probiotic 1250 Mg Capsule) 2 cap PO DAILY [facility] Stop: 06/29/22 08:59 Last Admin: 06/02/22 08:20 Dose: 2 cap Levalbuterol HCl (Levalbuterol Tartrate 15 Gm Hfa.Aer.Ad) 2 puffs INH Q6R PRN PRN Reason: Wheezing Stop: 06/29/22 00:59 Levetiracetam (Levetiracetam 500 Mg Tab) 500 mg PO MoWeFr@0600,1200,2000 [facility] Stop: 06/29/22 05:59 Last Admin: 06/01/22 20:25 Dose: 500 mg Levetiracetam (Levetiracetam 500 Mg Tab) 500 mg PO SuTuThSa@0800,1200 [facility] Stop: 06/30/22 07:59 Last Admin: 06/02/22 14:21 Dose: 500 mg Metoprolol Succinate (Metoprolol Succ 25mg Ext Rel Tab) 25 mg PO SuTuThSa@0900 [facility] Stop: 06/30/22 08:59 Last Admin: 06/02/22 14:21 Dose: 25 mg Miscellaneous (Lanthanum: Order Awaiting Action) 1 each N/A QS [facility] Stop: 06/29/22 00:00 Last Admin: 06/02/22 01:23 Dose: Not Given Miscellaneous (Carbohydrates For Hypoglycemia ) 15 - 30 gm PO UD PRN PRN Reason: Hypoglycemia Protocol Stop: 06/28/22 21:28
[2022-06-02] MEDS: METOPROLOL SUCC 25MG EXT REL TAB PO SCH (14:21)
[2022-06-02] MEDS: levETIRAcetam 500 MG TAB PO SCH (14:21)
--- NOTE | 2022-06-02 20:36 | Nephrology Progress Note ---
Date of Service June 02, 2022 Assessment & Plan (1) End stage renal disease: Plan: HD today routine treatment goal 1 L fluid removal whcih she tolerated, though SBP are and have been soft. -would observe sbp another few hrs and consider delaying metoprolol dose -next HD on 06/04 or as needs dictate (2) COVID-19: Plan: per OP dialysis unit, pt sx started 05/24 and she tested + on 05/25. after discussion w/ hospitalist/ pharmacy and quick review in conjunction w/ pharmacy of literature, pt on 5 day course of remdesivir today >> 200 mg IV x 1 05/30 then 100 mg daily x 4 days given after HD on HD days >>hospitalist to check cmp daily to monitor for hepatic toxicity Admission and Anticipated Discharge Date Admission Date: May 29, 2022 Subjective seen on evening rounds. tells me she ate her burger today. denies sob or pain. wondering when she can d/c. Tolerated 1L UF today, SBP post tx = 90. Review of Systems Review of Systems: All systems reviewed & are unremarkable except as noted in Subjective Physical Exam Constitutional: well developed, well nourished, + frail appearing and cooperative Eyes: EOM intact bilaterally ENMT: Ears: no external ear abnormality Nose: no external nose abnormality Neck: no nuchal rigidity Respiratory: normal respiratory effort Auscultation: + diminished lung sounds Cardiovascular: Rate/Rhythm: + irregularly irregular Extremities: normal capillary refill Gastrointestinal (Abdomen): Inspection/Auscultation: normal bowel sounds Percussion/Palpation: abdomen soft; abdomen nontender Musculoskeletal: Extremities: strength 5/5 throughout and + abnormal strength (marked generalized weakness; can't hold head up) Skin: no rashes, warm and dry Psychiatric: Orientation: oriented to person and cooperative; + not oriented to place and + not oriented to time Results & Data ([place]) Vital Signs (Past 12 Hours) Vital Signs Temp Pulse Pulse Pulse Resp BP BP 06/02/22 19:58 36.4 C L 110 H 18 89/67 L 06/02/22 16:03 36.6 C 107 H 19 117/73 06/02/22 12:56 37.1 C 108 H 90/71 L 06/02/22 12:30 113 H 95/77 L 06/02/22 12:00 106 H 110/71 06/02/22 11:30 107 H 104/52 L 06/02/22 11:00 105 H 95/61 L 06/02/22 10:30 94 H 114/64 06/02/22 10:00 88 121/66 06/02/22 09:40 94 H 106/79 06/02/22 09:10 36.5 C 100 H 06/02/22 09:23 93 H 99/76 L Pulse Ox O2 Del Method 06/02/22 19:58 97 Nasal Cannula 06/02/22 16:03 94 Room Air 06/02/22 12:56 06/02/22 12:30 06/02/22 12:00 06/02/22 11:30 06/02/22 11:00 06/02/22 10:30 06/02/22 10:00 06/02/22 09:40 06/02/22 09:10 06/02/22 09:23 Laboratory Results 06/02/22 07:01 06/02/22 07:01
[2022-06-02] MEDS: LANTUS PER UNIT CHARGE SQ SCH (22:10)
[2022-06-03] MEDS: PIPERACILLIN/TAZOBACTAM 3.375 GM in DEXTROSE 5% 100 ML IV SCH (03:23)
[2022-06-03] MEDS: levETIRAcetam 500 MG TAB PO SCH ×3 (06:14→19:55)
[2022-06-03 07:01] LABS: Albumin Globulin Ratio 1.2 (0.9-2); Albumin Level 2.8 gm/dl (3.4-5.0); Bilirubin,Total 0.8 mg/dl (0.2-1.0); Calcium 9.2 mg/dl (8.5-10.1); Creatinine Clr Calc Pharmacy 12.1 ml/min; Est GFR (African American) 13.4 ml/min; Est GFR (Non-African American) 11.5 ml/min; Globulin 2.3 gm/dl (2.5-4.0); Potassium 3.8 mmol/L (3.5-5.1); Total Protein 5.1 gm/dl (6.0-8.3)
[2022-06-03] MEDS: INSULIN ASPART PER UNIT SC SCH ×4 (08:01→20:19)
[2022-06-03] MEDS: dexAMETHasone 6 MG in SYRINGE 0 ML IV SCH (08:06)
[2022-06-03] MEDS: ADVANCED PROBIOTIC 1250 MG CAPSULE PO SCH (08:06)
[2022-06-03] MEDS: CALCITRIOL 0.25 MCG CAPSULE PO SCH (08:07)
[2022-06-03] MEDS: ATORVASTATIN 40 MG TAB PO SCH (08:07)
[2022-06-03] MEDS: ASPIRIN 81 MG ECTAB PO SCH (08:07)
[2022-06-03] MEDS: DOCUSATE SODIUM 100 MG CAP PO SCH (08:07)
--- NOTE | 2022-06-03 14:45 | Hospitalist Progress Note ---
Date of Service June 03, 2022 Assessment & Plan (1) Acute hypoxemic respiratory failure: Plan: Metabolic encephalopathy Noted to be only lethargic/confusion admit admission hx COPD/nocturnal hypoxemia/pulm hypertension as per records Multifactorial : Severe COVID-19 pneumonia HCAP possible aspiration, no overt sepsis for now Nasal MRSA: Negative Blood cultures: Negative Has been on IV Decadron and remdesivir Also getting intravenous Zosyn for aspiration pneumonia , day #4 Still requiring 5 L oxygen to maintain saturation Clinically stable with gradual improvement Has been requiring 2 L to maintain saturation Has minimal cough but no shortness of breath at rest Anorexia Likely secondary to COVID-19 virus infection Strongly advised to eat and drink more We will hold any insulin for now Has been tolerating advance diet Chest x-ray: 1. Small bilateral pleural effusions with increase in left basilar opacity which could reflect atelectasis or pneumonia. 2. Cardiomegaly. Slight improvement in pulmonary edema. Atrial fibrillation, rate controlled off anticoagulation due to hx ICH Troponin elevation Troponin went up to 1340 and reduced to 1024 on same day Troponin elevation secondary to above in the setting of kidney dysfunction And could be complicated by demand ischemia secondary to A. 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 SCDs Re: Thrombocytopenia DNR as per patient's prior directives. Disposition anticipate return to [facility] when medically stable Will start PT and OT evaluation-awaiting input and recommendation Possible discharge in a day or 2 Admission and Anticipated Discharge Date Admission Date: May 29, 2022 Subjective 06/01/2022 The patient was seen and examined in telemetry unit and in the COVID room She has been weak and lethargic and remains anorexic Blood sugar is running low around 70s Has minimal shortness of breath at rest but denies any cough and no chest pain 06/02/2022 The patient was seen and examined in telemetry unit and in the COVID room She has been feeling a little better today and has been tolerating advance diet She has been saturating normally on 2 L nasal cannula Review of Systems Review of Systems: All systems reviewed and are unremarkable except as noted below Physical Exam Physical Exam: Lying in bed comfortably Constitutional: + ill appearing and average body habitus Eyes: PERRL, conjunctivae normal, anicteric sclerae ENMT: external ear and nose normal, oropharynx normal Neck: trachea midline, no thyromegaly Respiratory: + respiratory distress (Minimal respiratory distress) Auscultation: + diminished lung sounds and + crackles (At the bases) Cardiovascular: Rate/Rhythm: + tachycardic and + irregularly irregular Heart Sounds: normal S1 and normal S2; no murmur Extremities: no edema Gastrointestinal (Abdomen): Inspection/Auscultation: normal bowel sounds; abdomen not distended Percussion/Palpation: abdomen soft; abdomen nontender Musculoskeletal: No acute arthritis involving any joint Neurologic: normal touch/pain/proprioception and moves all extremities; no focal motor deficits Remains very lethargic Lymphatic: no cervical or axillary lymphadenopathy Results & Data Results & Data ([facility]) Vital Signs (Past 12 Hours) Vital Signs Temp Pulse Pulse Resp BP Pulse Ox O2 Del Method 06/03/22 12:08 112 H 06/03/22 12:00 36.8 C 84 16 96/69 L 94 Nasal Cannula 06/03/22 10:09 Nasal Cannula 06/03/22 08:00 112 H 06/03/22 08:00 36.9 C 73 18 123/85 97 Nasal Cannula O2 Flow Rate 06/03/22 12:08 06/03/22 12:00 2 06/03/22 10:09 3 06/03/22 08:00 06/03/22 08:00 2 Laboratory Results BMP 06/03/22 06:20 Sodium 142 Potassium 3.8 Chloride 102 Carbon Dioxide 31 BUN 25 H Creatinine 3.58 H D Glucose 90 Calcium 9.2 Liver Function 06/03/22 Range/Units 06:20 Total Bilirubin 0.8 (0.2-1.0) mg/dl AST 34 (13-39) U/L ALT 26 (7-52) U/L Alkaline Phosphatase 57 (34-104) U/L Albumin 2.8 L (3.4-5.0) gm/dl Medications Administered Current Inpatient Medications Acetaminophen (Acetaminophen 325 Mg Tab) 650 mg PO Q4H PRN PRN Reason: Pain or Fever Stop: 06/28/22 21:28 Amoxicillin/Clavulanate Potassium (Amoxicillin/Clavulanate 500 Mg Tab) 1 tab PO Q24H [facility]; Protocol Stop: 06/05/22 03:59 Aspirin (Aspirin 81 Mg Ectab) 162 mg PO DAILY [facility] Stop: 06/29/22 08:59 Last Admin: 06/03/22 08:07 Dose: 162 mg Atorvastatin Calcium (Atorvastatin 40 Mg Tab) 80 mg PO DAILY [facility] Stop: 06/29/22 08:59 Last Admin: 06/03/22 08:07 Dose: 80 mg Calcitriol (Calcitriol 0.25 Mcg Capsule) 0.5 mcg PO MoWeFr@0900 [facility] Stop: 06/29/22 08:59 Last Admin: 06/03/22 08:07 Dose: 0.5 mcg Dextrose (Dextrose 50% 50 Ml Syringe) 25 - 50 ml IV UD PRN; Protocol PRN Reason: Hypoglycemia Protocol Stop: 06/28/22 21:28 Last Admin: 06/01/22 11:51 Dose: 25 ml Digoxin (Digoxin 0.125 Mg Tab) 0.125 mg PO MoWeFr@1600 [facility] Stop: 06/29/22 15:59 Last Admin: 06/01/22 17:24 Dose: 0.125 mg Docusate Sodium (Docusate Sodium 100 Mg Cap) 200 mg PO DAILY [facility] Stop: 06/29/22 08:59 Last Admin: 06/03/22 08:07 Dose: Not Given Glucagon (Glucagon For Inj 1 Mg Vial) 1 mg SQ UD PRN; Protocol PRN Reason: Hypoglycemia Protocol Stop: 06/28/22 21:28 Glucose (Glucose 40% Gel 15 Gm Tube) 15 - 30 gm PO UD PRN; Protocol PRN Reason: Hypoglycemia Protocol Stop: 06/28/22 21:28 Glucose (Glucose 10 Tab/Tube) 4 - 8 tab PO UD PRN; Protocol PRN Reason: Hypoglycemia Treatment Stop: 06/28/22 21:28 Dexamethasone 6 mg/ Syringe 1.5 mls @ 1 mls/min IV DAILY [facility] Stop: 06/29/22 08:59 Last Admin: 06/03/22 08:06 Dose: 1 mls/min Promethazine HCl 12.5 mg/ (Sodium Chloride) 50.5 mls @ 202 mls/hr IV Q6H PRN PRN Reason: Nausea And Vomiting Stop: 06/28/22 21:28 Remdesivir 100 mg/ Sodium (Chloride) 250 mls @ 250 mls/hr IV Q24H [facility]; Protocol Stop: 06/03/22 14:59 Last Infusion: 06/02/22 14:32 Dose: Infused Insulin Aspart (Insulin Aspart Per Unit) 0 units SC ACHS [facility] Stop: 06/28/22 21:28 Last Admin: 06/03/22 12:08 Dose: Not Given Lactobacillus Acidophilus (Advanced Probiotic 1250 Mg Capsule) 2 cap PO DAILY [facility] Stop: 06/29/22 08:59 Last Admin: 06/03/22 08:06 Dose: 2 cap Levalbuterol HCl (Levalbuterol Tartrate 15 Gm Hfa.Aer.Ad) 2 puffs INH Q6R PRN PRN Reason: Wheezing Stop: 06/29/22 00:59 Levetiracetam (Levetiracetam 500 Mg Tab) 500 mg PO MoWeFr@0600,1200,2000 [facility] Stop: 06/29/22 05:59 Last Admin: 06/03/22 13:22 Dose: 500 mg Levetiracetam (Levetiracetam 500 Mg Tab) 500 mg PO SuTuThSa@0800,1200 [facility] Stop: 06/30/22 07:59 Last Admin: 06/02/22 14:21 Dose: 500 mg Metoprolol Succinate (Metoprolol Succ 25mg Ext Rel Tab) 25 mg PO SuTuThSa@0900 [facility] Stop: 06/30/22 08:59 Last Admin: 06/02/22 14:21 Dose: 25 mg Miscellaneous (Lanthanum: Order Awaiting Action) 1 each N/A QS [facility] Stop: 06/29/22 00:00 Last Admin: 06/03/22 07:57 Dose: Not Given Miscellaneous (Carbohydrates For Hypoglycemia ) 15 - 30 gm PO UD PRN PRN Reason: Hypoglycemia Protocol Stop: 06/28/22 21:28
[2022-06-03] MEDS: REMDESIVIR 100mg: Days 2-5 IV SCH (15:01)
[2022-06-03] MEDS: DIGOXIN 0.125 MG TAB PO SCH (17:30)
[2022-06-03] MEDS: AMOXICILLIN/CLAVULANATE 500 MG TAB PO SCH (17:30)
[2022-06-04] MEDS ORDERED: SODIUM CHLORIDE 0.9% 1000ML 1,000 ML IV PRN (07:00)
[2022-06-04] MEDS ORDERED: HEPARIN SOD (PORCINE) 1000 UNIT/ML IV ONE (07:00)
[2022-06-04] MEDS ORDERED: EPOETIN ALFA 10,000 UNITS/ML VIAL IV ONE (07:00)
[2022-06-04] MEDS: INSULIN ASPART PER UNIT SC SCH ×4 (07:56→20:29)
[2022-06-04] MEDS: METOPROLOL SUCC 25MG EXT REL TAB PO SCH (07:57)
[2022-06-04] MEDS: levETIRAcetam 500 MG TAB PO SCH ×2 (07:57→13:38)
[2022-06-04] MEDS: DOCUSATE SODIUM 100 MG CAP PO SCH (07:57)
[2022-06-04] MEDS: ATORVASTATIN 40 MG TAB PO SCH (07:58)
[2022-06-04] MEDS: ASPIRIN 81 MG ECTAB PO SCH (07:58)
[2022-06-04] MEDS: dexAMETHasone 6 MG in SYRINGE 0 ML IV SCH (07:58)
[2022-06-04] MEDS: ADVANCED PROBIOTIC 1250 MG CAPSULE PO SCH (07:59)
[2022-06-04 09:59] LABS: BUN Creatinine Ratio 8.8 (10-20); Calcium 9.3 mg/dl (8.5-10.1); Est GFR (African American) 9.2 ml/min; Est GFR (Non-African American) 7.9 ml/min; Potassium 3.5 mmol/L (3.5-5.1)
[2022-06-04] MEDS: HEPARIN SOD (PORCINE) 1000 UNIT/ML IV SCH ×3 (10:05→14:58)
--- NOTE | 2022-06-04 13:34 | Hospitalist Progress Note ---
Date of Service June 04, 2022 Assessment & Plan (1) Acute hypoxemic respiratory failure: Plan: Metabolic encephalopathy Noted to be only lethargic/confusion admit admission hx COPD/nocturnal hypoxemia/pulm hypertension as per records Multifactorial : Severe COVID-19 pneumonia HCAP possible aspiration, no overt sepsis for now Nasal MRSA: Negative Blood cultures: Negative Has been on IV Decadron and remdesivir Also getting intravenous Zosyn for aspiration pneumonia , day #4 Still requiring 5 L oxygen to maintain saturation Clinically stable with gradual improvement Has been requiring 2 L to maintain saturation Has had respiratory distress during dialysis Feeling better during my examination but will get an x-ray to rule out any other possibilities like pneumonia and atelectasis Advised to use spirometer Anorexia Likely secondary to COVID-19 virus infection Strongly advised to eat and drink more We will hold any insulin for now Has been tolerating advance diet Chest x-ray: 1. Small bilateral pleural effusions with increase in left basilar opacity which could reflect atelectasis or pneumonia. 2. Cardiomegaly. Slight improvement in pulmonary edema. Atrial fibrillation, rate controlled off anticoagulation due to hx ICH Troponin elevation Troponin went up to 1340 and reduced to 1024 on same day Troponin elevation secondary to above in the setting of kidney dysfunction And could be complicated by demand ischemia secondary to A. 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 SCDs Re: Thrombocytopenia DNR as per patient's prior directives. Disposition anticipate return to [facility] when medically stable Will start PT and OT evaluation-awaiting input and recommendation Acute discharge on Monday Admission and Anticipated Discharge Date Admission Date: May 29, 2022 Subjective 06/01/2022 The patient was seen and examined in telemetry unit and in the COVID room She has been weak and lethargic and remains anorexic Blood sugar is running low around 70s Has minimal shortness of breath at rest but denies any cough and no chest pain 06/02/2022 The patient was seen and examined in telemetry unit and in the COVID room She has been feeling a little better today and has been tolerating advance diet She has been saturating normally on 2 L nasal cannula 06/03/2022 The patient was seen and examined in telemetry unit and in the COVID room on 06/03/2022 06/04/2022 The patient was seen and examined in telemetry unit and in the COVID room She has been feeling much better She was noted to have very high pulse rate during dialysis today and is complaining of some back pain During my examination the back pain is almost gone and she does not have any more tachycardia like that Denies any chest pain, palpitation or shortness of breath No fever and no chills and she is saturating normally on 2 L of nasal cannula Review of Systems Review of Systems: All systems reviewed and are unremarkable except as noted below Respiratory: Complaint minimal respiratory distress during dialysis Physical Exam Physical Exam: Lying in bed comfortably Constitutional: + ill appearing and average body habitus Eyes: PERRL, conjunctivae normal, anicteric sclerae ENMT: external ear and nose normal, oropharynx normal Neck: trachea midline, no thyromegaly Respiratory: + respiratory distress (Minimal respiratory distress) Auscultation: + diminished lung sounds and + crackles (At the bases) Cardiovascular: Rate/Rhythm: + tachycardic and + irregularly irregular Heart Sounds: normal S1 and normal S2; no murmur Extremities: no edema Gastrointestinal (Abdomen): Inspection/Auscultation: normal bowel sounds; abdomen not distended Percussion/Palpation: abdomen soft; abdomen nontender Musculoskeletal: No acute arthritis involving any joint Neurologic: normal touch/pain/proprioception and moves all extremities; no focal motor deficits Lymphatic: no cervical or axillary lymphadenopathy Results & Data Results & Data ([facility]) Vital Signs (Past 12 Hours) Vital Signs Temp Pulse Pulse Pulse Resp BP BP 06/04/22 12:28 36.4 C L 63 120/52 L 06/04/22 12:00 70 139/86 02/04/23 11:30 63 94/41 L 06/04/22 11:00 62 90/38 L 06/04/22 10:30 113 H 131/75 06/04/22 10:00 112 H 121/89 06/04/22 09:30 97 H 115/73 06/04/22 09:07 76 100/65 06/04/22 08:55 36.6 C 102 H 06/04/22 07:30 36.9 C 101 H 20 118/79 06/04/22 03:56 37.0 C 81 18 93/61 L Pulse Ox O2 Del Method O2 Flow Rate 06/04/22 12:28 06/04/22 12:00 06/04/22 11:30 06/04/22 11:00 06/04/22 10:30 06/04/22 10:00 06/04/22 09:30 06/04/22 09:07 06/04/22 08:55 06/04/22 07:30 95 Nasal Cannula 2 06/04/22 03:56 96 Nasal Cannula 3 Laboratory Results [facility] 06/04/22 09:09 Sodium 139 Potassium 3.5 Chloride 101 Carbon Dioxide 25 BUN 43 H Creatinine 4.89 H* D Glucose 123 H Calcium 9.3 Medications Administered Current Inpatient Medications Acetaminophen (Acetaminophen 325 Mg Tab) 650 mg PO Q4H PRN PRN Reason: Pain or Fever Stop: 06/28/22 21:28 Last Admin: 06/04/22 11:25 Dose: 650 mg Amoxicillin/Clavulanate Potassium (Amoxicillin/Clavulanate 500 Mg Tab) 1 tab PO Q24H [facility]; Protocol Stop: 06/05/22 03:59 Last Admin: 06/03/22 17:30 Dose: 1 tab Aspirin (Aspirin 81 Mg Ectab) 162 mg PO DAILY [facility] Stop: 06/29/22 08:59 Last Admin: 06/04/22 07:58 Dose: 162 mg Atorvastatin Calcium (Atorvastatin 40 Mg Tab) 80 mg PO DAILY [facility] Stop: 06/29/22 08:59 Last Admin: 06/04/22 07:58 Dose: 80 mg Calcitriol (Calcitriol 0.25 Mcg Capsule) 0.5 mcg PO MoWeFr@0900 [facility] Stop: 06/29/22 08:59 Last Admin: 06/03/22 08:07 Dose: 0.5 mcg Dextrose (Dextrose 50% 50 Ml Syringe) 25 - 50 ml IV UD PRN; Protocol PRN Reason: Hypoglycemia Protocol Stop: 06/28/22 21:28 Last Admin: 06/01/22 11:51 Dose: 25 ml Digoxin (Digoxin 0.125 Mg Tab) 0.125 mg PO MoWeFr@1600 [facility] Stop: 06/29/22 15:59 Last Admin: 06/03/22 17:30 Dose: 0.125 mg Docusate Sodium (Docusate Sodium 100 Mg Cap) 200 mg PO DAILY [facility] Stop: 06/29/22 08:59 Last Admin: 06/04/22 07:57 Dose: 200 mg Glucagon (Glucagon For Inj 1 Mg Vial) 1 mg SQ UD PRN; Protocol PRN Reason: Hypoglycemia Protocol Stop: 06/28/22 21:28 Glucose (Glucose 40% Gel 15 Gm Tube) 15 - 30 gm PO UD PRN; Protocol PRN Reason: Hypoglycemia Protocol Stop: 06/28/22 21:28 Glucose (Glucose 10 Tab/Tube) 4 - 8 tab PO UD PRN; Protocol PRN Reason: Hypoglycemia Treatment Stop: 06/28/22 21:28 Dexamethasone 6 mg/ Syringe 1.5 mls @ 1 mls/min IV DAILY [facility] Stop: 06/29/22 08:59 Last Admin: 06/04/22 07:58 Dose: 1 mls/min Promethazine HCl 12.5 mg/ (Sodium Chloride) 50.5 mls @ 202 mls/hr IV Q6H PRN PRN Reason: Nausea And Vomiting Stop: 06/28/22 21:28 Insulin Aspart (Insulin Aspart Per Unit) 0 units SC ACHS [facility] Stop: 06/28/22 21:28 Last Admin: 06/04/22 07:56 Dose: Not Given Lactobacillus Acidophilus (Advanced Probiotic 1250 Mg Capsule) 2 cap PO DAILY [facility] Stop: 06/29/22 08:59 Last Admin: 06/04/22 07:59 Dose: 2 cap Levalbuterol HCl (Levalbuterol Tartrate 15 Gm Hfa.Aer.Ad) 2 puffs INH Q6R PRN PRN Reason: Wheezing Stop: 06/29/22 00:59 Levetiracetam (Levetiracetam 500 Mg Tab) 500 mg PO MoWeFr@0600,1200,2000 [facility] Stop: 06/29/22 05:59 Last Admin: 06/03/22 19:55 Dose: 500 mg Levetiracetam (Levetiracetam 500 Mg Tab) 500 mg PO SuTuThSa@0800,1200 [facility] Stop: 06/30/22 07:59 Last Admin: 06/04/22 07:57 Dose: 500 mg Metoprolol Succinate (Metoprolol Succ 25mg Ext Rel Tab) 25 mg PO SuTuThSa@0900 [facility] Stop: 06/30/22 08:59 Last Admin: 06/04/22 07:57 Dose: 25 mg Miscellaneous (Lanthanum: Order Awaiting Action) 1 each N/A QS [facility] Stop: 06/29/22 00:00 Last Admin: 06/04/22 09:49 Dose: Not Given Miscellaneous (Carbohydrates For Hypoglycemia ) 15 - 30 gm PO UD PRN PRN Reason: Hypoglycemia Protocol Stop: 06/28/22 21:28
[2022-06-04] MEDS: AMOXICILLIN/CLAVULANATE 500 MG TAB PO SCH (17:02)
[2022-06-05] MEDS: ADVANCED PROBIOTIC 1250 MG CAPSULE PO SCH (08:42)
[2022-06-05] MEDS: DOCUSATE SODIUM 100 MG CAP PO SCH (08:44)
[2022-06-05] MEDS: levETIRAcetam 500 MG TAB PO SCH ×2 (08:44→11:49)
[2022-06-05] MEDS: ASPIRIN 81 MG ECTAB PO SCH (08:45)
[2022-06-05] MEDS: METOPROLOL SUCC 25MG EXT REL TAB PO SCH (08:48)
[2022-06-05] MEDS: dexAMETHasone 6 MG in SYRINGE 0 ML IV SCH (09:23)
[2022-06-05] MEDS: INSULIN ASPART PER UNIT SC SCH ×4 (10:07→21:50)
[2022-06-05] MEDS: ATORVASTATIN 40 MG TAB PO SCH (10:26)
--- NOTE | 2022-06-05 10:33 | Electrocardiogram Report ---
Test Reason : Blood Pressure : / mmHG Vent. Rate : 128 BPM Atrial Rate : 144 BPM P-R Int : 000 ms QRS Dur : 082 ms QT Int : 320 ms P-R-T Axes : 000 -49 006 degrees QTc Int : 467 ms Atrial fibrillation with rapid ventricular response with premature ventricular or aberrantly conducte d complexes Left axis deviation Anterior infarct (cited on or before 21-FEB-2022) Abnormal ECG When compared with ECG of 29-MAY-2022 18:07, ST no longer depressed in Lateral leads Confirmed by Alan Her ([id number]) on 06/05/2022 10:33:11 AM Referred By: REFERRED SELF Confirmed By:Alan Her
--- NOTE | 2022-06-05 11:37 | Hospitalist Progress Note ---
Date of Service June 05, 2022 Assessment & Plan (1) Acute hypoxemic respiratory failure: Plan: Metabolic encephalopathy Noted to be only lethargic/confusion admit admission hx COPD/nocturnal hypoxemia/pulm hypertension as per records Multifactorial : Severe COVID-19 pneumonia HCAP possible aspiration, no overt sepsis for now Nasal MRSA: Negative Blood cultures: Negative Has been on IV Decadron and remdesivir Also getting intravenous Zosyn for aspiration pneumonia , day #4 Still requiring 5 L oxygen to maintain saturation Clinically stable with gradual improvement Has been requiring 2 L to maintain saturation Has had respiratory distress during dialysis Feeling better during my examination but will get an x-ray to rule out any other possibilities like pneumonia and atelectasis Has been feeling a lot better and has minimal cough without any shortness of breath at rest Wants to go home today and will have to have physical therapy before discharge Anorexia Likely secondary to COVID-19 virus infection Strongly advised to eat and drink more We will hold any insulin for now Has been tolerating advance diet Chest x-ray: 1. Small bilateral pleural effusions with increase in left basilar opacity which could reflect atelectasis or pneumonia. 2. Cardiomegaly. Slight improvement in pulmonary edema. Atrial fibrillation, rate controlled off anticoagulation due to hx ICH Troponin elevation Troponin went up to 1340 and reduced to 1024 on same day Troponin elevation secondary to above in the setting of kidney dysfunction And could be complicated by demand ischemia secondary to A. 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 SCDs Re: Thrombocytopenia DNR as per patient's prior directives. Disposition anticipate return to [facility] when medically stable We will get PT and OT evaluation and possible discharge tomorrow Admission and Anticipated Discharge Date Admission Date: May 29, 2022 Subjective 06/01/2022 The patient was seen and examined in telemetry unit and in the COVID room She has been weak and lethargic and remains anorexic Blood sugar is running low around 70s Has minimal shortness of breath at rest but denies any cough and no chest pain 06/02/2022 The patient was seen and examined in telemetry unit and in the COVID room She has been feeling a little better today and has been tolerating advance diet She has been saturating normally on 2 L nasal cannula 06/03/2022 The patient was seen and examined in telemetry unit and in the COVID room on 06/03/2022 06/04/2022 The patient was seen and examined in telemetry unit and in the COVID room She has been feeling much better She was noted to have very high pulse rate during dialysis today and is compl aining of some back pain During my examination the back pain is almost gone and she does not have any more tachycardia like that Denies any chest pain, palpitation or shortness of breath No fever and no chills and she is saturating normally on 2 L of nasal cannula 06/05/2022 The patient was seen and examined in telemetry unit and in the COVID room She wants to go home and she has been feeling much better Minimal cough and has been maintaining saturation on room air No other significant symptoms Review of Systems Review of Systems: All systems reviewed and are unremarkable except as noted below Respiratory: Complaint minimal respiratory distress during dialysis Neurologic: Generally weak and lethargic. Moves all extremities. Physical Exam Physical Exam: Lying in bed comfortably Constitutional: + ill appearing and average body habitus Eyes: PERRL, conjunctivae normal, anicteric sclerae ENMT: external ear and nose normal, oropharynx normal Neck: trachea midline, no thyromegaly Respiratory: + respiratory distress (Minimal respiratory distress) Auscultation: + diminished lung sounds and + crackles (At the bases) Cardiovascular: Rate/Rhythm: + tachycardic and + irregularly irregular Heart Sounds: normal S1 and normal S2; no murmur Extremities: no edema Gastrointestinal (Abdomen): Inspection/Auscultation: normal bowel sounds; abdomen not distended Percussion/Palpation: abdomen soft; abdomen nontender Musculoskeletal: No acute arthritis involving any joint Neurologic: normal touch/pain/proprioception and moves all extremities; no focal motor deficits Lymphatic: no cervical or axillary lymphadenopathy Results & Data Results & Data ([facility]) Vital Signs (Past 12 Hours) Vital Signs Temp Pulse Pulse Pulse Resp BP Pulse Ox 06/05/22 10:03 98 H 06/05/22 09:53 06/05/22 08:47 116 H 101/66 06/05/22 08:06 36.8 C 89 19 97/59 L 97 06/05/22 02:37 37.0 C 110 H 15 91/64 L 94 06/04/22 23:47 108 H 18 90/52 L O2 Del Method O2 Flow Rate 06/05/22 10:03 06/05/22 09:53 Room Air 06/05/22 08:47 06/05/22 08:06 Nasal Cannula 2 06/05/22 02:37 Nasal Cannula 2 06/04/22 23:47 Medications Administered Current Inpatient Medications Acetaminophen (Acetaminophen 325 Mg Tab) 650 mg PO Q4H PRN PRN Reason: Pain or Fever Stop: 06/28/22 21:28 Last Admin: 06/04/22 11:25 Dose: 650 mg Aspirin (Aspirin 81 Mg Ectab) 162 mg PO DAILY [facility] Stop: 06/29/22 08:59 Last Admin: 06/05/22 08:45 Dose: 162 mg Atorvastatin Calcium (Atorvastatin 40 Mg Tab) 80 mg PO DAILY [facility] Stop: 06/29/22 08:59 Last Admin: 06/05/22 10:26 Dose: 80 mg Calcitriol (Calcitriol 0.25 Mcg Capsule) 0.5 mcg PO MoWeFr@0900 [facility] Stop: 06/29/22 08:59 Last Admin: 06/03/22 08:07 Dose: 0.5 mcg Dextrose (Dextrose 50% 50 Ml Syringe) 25 - 50 ml IV UD PRN; Protocol PRN Reason: Hypoglycemia Protocol Stop: 06/28/22 21:28 Last Admin: 06/01/22 11:51 Dose: 25 ml Digoxin (Digoxin 0.125 Mg Tab) 0.125 mg PO MoWeFr@1600 [facility] Stop: 06/29/22 15:59 Last Admin: 06/03/22 17:30 Dose: 0.125 mg Docusate Sodium (Docusate Sodium 100 Mg Cap) 200 mg PO DAILY [facility] Stop: 06/29/22 08:59 Last Admin: 06/05/22 08:44 Dose: 200 mg Glucagon (Glucagon For Inj 1 Mg Vial) 1 mg SQ UD PRN; Protocol PRN Reason: Hypoglycemia Protocol Stop: 06/28/22 21:28 Glucose (Glucose 40% Gel 15 Gm Tube) 15 - 30 gm PO UD PRN; Protocol PRN Reason: Hypoglycemia Protocol Stop: 06/28/22 21:28 Glucose (Glucose 10 Tab/Tube) 4 - 8 tab PO UD PRN; Protocol PRN Reason: Hypoglycemia Treatment Stop: 06/28/22 21:28 Dexamethasone 6 mg/ Syringe 1.5 mls @ 1 mls/min IV DAILY [facility] Stop: 06/29/22 08:59 Last Admin: 06/05/22 09:23 Dose: 1 mls/min Promethazine HCl 12.5 mg/ (Sodium Chloride) 50.5 mls @ 202 mls/hr IV Q6H PRN PRN Reason: Nausea And Vomiting Stop: 06/28/22 21:28 Insulin Aspart (Insulin Aspart Per Unit) 0 units SC ACHS [facility] Stop: 06/28/22 21:28 Last Admin: 06/05/22 10:07 Dose: Not Given Lactobacillus Acidophilus (Advanced Probiotic 1250 Mg Capsule) 2 cap PO DAILY [facility] Stop: 06/29/22 08:59 Last Admin: 06/05/22 08:42 Dose: 2 cap Levalbuterol HCl (Levalbuterol Tartrate 15 Gm Hfa.Aer.Ad) 2 puffs INH Q6R PRN PRN Reason: Wheezing Stop: 06/29/22 00:59 Levetiracetam (Levetiracetam 500 Mg Tab) 500 mg PO MoWeFr@0600,1200,2000 [facility] Stop: 06/29/22 05:59 Last Admin: 06/03/22 19:55 Dose: 500 mg Levetiracetam (Levetiracetam 500 Mg Tab) 500 mg PO SuTuThSa@0800,1200 [facility] Stop: 06/30/22 07:59 Last Admin: 06/05/22 08:44 Dose: 500 mg Metoprolol Succinate (Metoprolol Succ 25mg Ext Rel Tab) 25 mg PO SuTuThSa@0900 [facility] Stop: 06/30/22 08:59 Last Admin: 06/05/22 08:48 Dose: 25 mg Miscellaneous (Lanthanum: Order Awaiting Action) 1 each N/A QS [facility] Stop: 06/29/22 00:00 Last Admin: 06/05/22 08:46 Dose: Not Given Miscellaneous (Carbohydrates For Hypoglycemia ) 15 - 30 gm PO UD PRN PRN Reason: Hypoglycemia Protocol Stop: 06/28/22 21:28
[2022-06-06] MEDS: levETIRAcetam 500 MG TAB PO SCH ×3 (05:32→22:09)
[2022-06-06] MEDS ORDERED: EPOETIN ALFA 10,000 UNITS/ML VIAL IV ONE (07:00)
[2022-06-06] MEDS ORDERED: SODIUM CHLORIDE 0.9% 1000ML 1,000 ML IV PRN (07:00)
[2022-06-06] MEDS: INSULIN ASPART PER UNIT SC SCH ×4 (08:25→22:00)
[2022-06-06] MEDS: ASPIRIN 81 MG ECTAB PO SCH (08:27)
[2022-06-06] MEDS: CALCITRIOL 0.25 MCG CAPSULE PO SCH (08:28)
[2022-06-06] MEDS: dexAMETHasone 6 MG in SYRINGE 0 ML IV SCH (08:28)
[2022-06-06] MEDS: ATORVASTATIN 40 MG TAB PO SCH (08:28)
[2022-06-06] MEDS: ADVANCED PROBIOTIC 1250 MG CAPSULE PO SCH (08:28)
[2022-06-06] MEDS: DOCUSATE SODIUM 100 MG CAP PO SCH (09:59)
--- NOTE | 2022-06-06 14:12 | Hospitalist Progress Note ---
Date of Service June 06, 2022 Assessment & Plan (1) Acute hypoxemic respiratory failure: Plan: Metabolic encephalopathy Noted to be only lethargic/confusion admit admission hx COPD/nocturnal hypoxemia/pulm hypertension as per records Multifactorial : Severe COVID-19 pneumonia HCAP possible aspiration, no overt sepsis for now Nasal MRSA: Negative Blood cultures: Negative Has been on IV Decadron and remdesivir Also getting intravenous Zosyn for aspiration pneumonia , day #4 Still requiring 5 L oxygen to maintain saturation Clinically stable with gradual improvement Has been requiring 2 L to maintain saturation Has had respiratory distress during dialysis Feeling better during my examination but will get an x-ray to rule out any other possibilities like pneumonia and atelectasis Has been feeling a lot better and has minimal cough without any shortness of breath at rest Wants to go home today and will have to have physical therapy before discharge Clinically much better to be discharged to [facility] Anorexia Likely secondary to COVID-19 virus infection Strongly advised to eat and drink more We will hold any insulin for now Has been tolerating advance diet Chest x-ray: 1. Small bilateral pleural effusions with increase in left basilar opacity which could reflect atelectasis or pneumonia. 2. Cardiomegaly. Slight improvement in pulmonary edema. Atrial fibrillation, rate controlled off anticoagulation due to hx ICH Troponin elevation Troponin went up to 1340 and reduced to 1024 on same day Troponin elevation secondary to above in the setting of kidney dysfunction And could be complicated by demand ischemia secondary to A. fib with RVR Doubt any ACS Heart rate is minimally elevated 112 Heart rate went up to 160/170 range as I was reported but during examination it came down to 120s We will get an EKG to document-showed tachycardia of 128 Today heart rate is around 98 without any symptoms Minimal tachycardia at 110s History of chronic systolic heart failure (EF 40 to 45%, TTE 2021)/ ESRD on HD -- HD today per Nephro hx CAD sp stenting valvular heart disease (severe TR, mild /MR ) - no cardiac symptoms -Appreciate nephrology input and recommendation -Has been having dialysis today and will continue as per as400 consultant -Next dialysis is on Monday -Will have dialysis tomorrow and following that she will be going to be discharged to [facility] tomorrow History of recurrent CVA HTN -- monitor BP Hyperlipidemia on statin Rx History of cerebral amyloid angiopathy as per records 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 SCDs Re: Thrombocytopenia DNR as per patient's prior directives. Disposition anticipate return to [facility] when medically stable We will get PT and OT evaluation and possible discharge tomorrow Admission and Anticipated Discharge Date Admission Date: May 29, 2022 Subjective 06/01/2022 The patient was seen and examined in telemetry unit and in the COVID room She has been weak and lethargic and remains anorexic Blood sugar is running low around 70s Has minimal shortness of breath at rest but denies any cough and no chest pain 06/02/2022 The patient was seen and examined in telemetry unit and in the COVID room She has been feeling a little better today and has been tolerating advance diet She has been saturating normally on 2 L nasal cannula 06/03/2022 The patient was seen and examined in telemetry unit and in the COVID room on 06/03/2022 06/04/2022 The patient was seen and examined in telemetry unit and in the COVID room She has been feeling much better She was noted to have very high pulse rate during dialysis today and is complaining of some back pain During my examination the back pain is almost gone and she does not have any more tachycardia like that Denies any chest pain, palpitation or shortness of breath No fever and no chills and she is saturating normally on 2 L of nasal cannula 06/05/2022 The patient was seen and examined in telemetry unit and in the COVID room She wants to go home and she has been feeling much better Minimal cough and has been maintaining saturation on room air No other significant symptoms 06/06/2022 Patient was seen and examined in the medical telemetry unit in the COVID room He has been feeling much better and asking when she can get out Denies any significant symptoms Will have hemodialysis tomorrow and cannot be done today Review of Systems Review of Systems: All systems reviewed and are unremarkable except as noted below Respiratory: No respiratory symptoms Physical Exam Physical Exam: Lying in bed comfortably Constitutional: average body habitus; not ill appearing Eyes: PERRL, conjunctivae normal, anicteric sclerae ENMT: external ear and nose normal, oropharynx normal Neck: trachea midline, no thyromegaly Respiratory: + respiratory distress (Minimal respiratory distress) Auscultation: + diminished lung sounds and + crackles (At the bases) Cardiovascular: Rate/Rhythm: + tachycardic and + irregularly irregular Heart Sounds: normal S1 and normal S2; no murmur Extremities: no edema Gastrointestinal (Abdomen): Inspection/Auscultation: normal bowel sounds; abdomen not distended Percussion/Palpation: abdomen soft; abdomen nontender Musculoskeletal: No acute arthritis involving any of the joint Neurologic: normal touch/pain/proprioception and moves all extremities; no focal motor deficits Lymphatic: no cervical or axillary lymphadenopathy Results & Data Results & Data ([facility]) Vital Signs (Past 12 Hours) Vital Signs Temp Pulse Pulse Pulse Resp BP Pulse Ox 06/06/22 12:38 110 H 94 06/06/22 12:10 36.6 C 85 20 109/63 06/06/22 08:00 06/06/22 07:30 121 H 06/06/22 06:41 36.5 C 116 H 18 117/66 96 O2 Del Method 06/06/22 12:38 Room Air 06/06/22 12:10 06/06/22 08:00 Room Air 06/06/22 07:30 06/06/22 06:41 Room Air Medications Administered Current Inpatient Medications Acetaminophen (Acetaminophen 325 Mg Tab) 650 mg PO Q4H PRN PRN Reason: Pain or Fever Stop: 06/28/22 21:28 Last Admin: 06/04/22 11:25 Dose: 650 mg Aspirin (Aspirin 81 Mg Ectab) 162 mg PO DAILY [facility] Stop: 06/29/22 08:59 Last Admin: 06/06/22 08:27 Dose: 162 mg Atorvastatin Calcium (Atorvastatin 40 Mg Tab) 80 mg PO DAILY [facility] Stop: 06/29/22 08:59 Last Admin: 06/06/22 08:28 Dose: 80 mg Calcitriol (Calcitriol 0.25 Mcg Capsule) 0.5 mcg PO MoWeFr@0900 [facility] Stop: 06/29/22 08:59 Last Admin: 06/06/22 08:28 Dose: 0.5 mcg Dextrose (Dextrose 50% 50 Ml Syringe) 25 - 50 ml IV UD PRN; Protocol PRN Reason: Hypoglycemia Protocol Stop: 06/28/22 21:28 Last Admin: 06/01/22 11:51 Dose: 25 ml Digoxin (Digoxin 0.125 Mg Tab) 0.125 mg PO MoWeFr@1600 [facility] Stop: 06/29/22 15:59 Last Admin: 06/03/22 17:30 Dose: 0.125 mg Docusate Sodium (Docusate Sodium 100 Mg Cap) 200 mg PO DAILY [facility] Stop: 06/29/22 08:59 Last Admin: 06/06/22 09:59 Dose: Not Given Glucagon (Glucagon For Inj 1 Mg Vial) 1 mg SQ UD PRN; Protocol PRN Reason: Hypoglycemia Protocol Stop: 06/28/22 21:28 Glucose (Glucose 40% Gel 15 Gm Tube) 15 - 30 gm PO UD PRN; Protocol PRN Reason: Hypoglycemia Protocol Stop: 06/28/22 21:28 Glucose (Glucose 10 Tab/Tube) 4 - 8 tab PO UD PRN; Protocol PRN Reason: Hypoglycemia Treatment Stop: 06/28/22 21:28 Dexamethasone 6 mg/ Syringe 1.5 mls @ 1 mls/min IV DAILY [facility] Stop: 06/29/22 08:59 Last Admin: 06/06/22 08:28 Dose: 1 mls/min Promethazine HCl 12.5 mg/ (Sodium Chloride) 50.5 mls @ 202 mls/hr IV Q6H PRN PRN Reason: Nausea And Vomiting Stop: 06/28/22 21:28 Sodium Chloride (Nss 1000ml) 1,000 mls @ 0 mls/hr IV .Q0M PRN PRN Reason: For Hemodialysis Use ONLY Stop: 06/07/22 12:59 Insulin Aspart (Insulin Aspart Per Unit) 0 units SC ACHS [facility] Stop: 06/28/22 21:28 Last Admin: 06/06/22 12:38 Dose: Not Given Lactobacillus Acidophilus (Advanced Probiotic 1250 Mg Capsule) 2 cap PO DAILY [facility] Stop: 06/29/22 08:59 Last Admin: 06/06/22 08:28 Dose: 2 cap Levalbuterol HCl (Levalbuterol Tartrate 15 Gm Hfa.Aer.Ad) 2 puffs INH Q6R PRN PRN Reason: Wheezing Stop: 06/29/22 00:59 Levetiracetam (Levetiracetam 500 Mg Tab) 500 mg PO MoWeFr@0600,1200,2000 [facility] Stop: 06/29/22 05:59 Last Admin: 06/06/22 12:38 Dose: 500 mg Levetiracetam (Levetiracetam 500 Mg Tab) 500 mg PO SuTuThSa@0800,1200 [facility] Stop: 06/30/22 07:59 Last Admin: 06/05/22 11:49 Dose: 500 mg Metoprolol Succinate (Metoprolol Succ 25mg Ext Rel Tab) 25 mg PO SuTuThSa@0900 [facility] Stop: 06/30/22 08:59 Last Admin: 06/05/22 08:48 Dose: 25 mg Miscellaneous (Carbohydrates For Hypoglycemia ) 15 - 30 gm PO UD PRN PRN Reason: Hypoglycemia Protocol Stop: 06/28/22 21:28
[2022-06-06] MEDS: DIGOXIN 0.125 MG TAB PO SCH (17:06)
[2022-06-07] MEDS ORDERED: SODIUM CHLORIDE 0.9% 1000ML 1,000 ML IV PRN (07:00)
[2022-06-07] MEDS: INSULIN ASPART PER UNIT SC SCH ×3 (08:30→13:21)
[2022-06-07] MEDS: DOCUSATE SODIUM 100 MG CAP PO SCH ×2 (08:39→08:43)
[2022-06-07] MEDS: dexAMETHasone 6 MG in SYRINGE 0 ML IV SCH (08:39)
[2022-06-07] MEDS: ADVANCED PROBIOTIC 1250 MG CAPSULE PO SCH (08:40)
[2022-06-07] MEDS: ATORVASTATIN 40 MG TAB PO SCH (08:40)
[2022-06-07] MEDS: METOPROLOL SUCC 25MG EXT REL TAB PO SCH (08:40)
[2022-06-07] MEDS: ASPIRIN 81 MG ECTAB PO SCH (08:40)
[2022-06-07] MEDS: levETIRAcetam 500 MG TAB PO SCH ×2 (08:41→11:32)
--- NOTE | 2022-06-07 10:50 | Dialysis Progress Note ---
Date of Service June 07, 2022 Assessment & Plan Admission and Anticipated Discharge Date Admission Date: May 29, 2022 Subjective Assessment & Plan (1) End stage renal disease: Plan: HD today 3.5 hrs and take about 2 kilo. AVF fine. her normal days are MWF so should still do Outpt Dialysis tomorrow but can be shorter time of 2.5 hrs. (2) COVID-19: Plan: She did get Remdesevir. Subjective Seen In dialysis. Appetite not so good. No issues with Dialysis so far. Review of Systems Review of Systems: All systems reviewed & are unremarkable except as noted in Subjective Physical Exam Constitutional: well developed, well nourished, + frail appearing and cooperative Eyes: EOM intact bilaterally ENMT: Ears: no external ear abnormality Nose: no external nose abnormality Neck: no nuchal rigidity Respiratory: normal respiratory effort Auscultation: + diminished lung sounds Cardiovascular: Rate/Rhythm: + irregularly irregular Extremities: normal capillary refill Gastrointestinal (Abdomen): Inspection/Auscultation: normal bowel sounds Percussion/Palpation: abdomen soft; abdomen nontender Musculoskeletal: Extremities: strength 5/5 throughout Skin: no rashes, warm and dry Psychiatric: Orientation: oriented to person and cooperative; + not oriented to place and + not oriented to time Results & Data ([facility]) Vital Signs (Past 12 Hours) Vital Signs Temp Pulse Pulse Pulse Resp BP BP 06/07/22 08:30 06/07/22 10:30 94 H 117/39 L 06/07/22 10:00 104 H 122/44 L 06/07/22 09:30 98 H 100/57 L 06/07/22 09:00 90 116/57 L 06/07/22 08:58 68 90/57 L 06/07/22 08:44 36.4 C L 113 H 06/07/22 07:59 36.4 C L 100 H 20 106/66 06/07/22 07:15 86 06/07/22 00:35 06/07/22 00:12 98 H Pulse Ox O2 Del Method 06/07/22 08:30 Room Air 06/07/22 10:30 06/07/22 10:00 06/07/22 09:30 06/07/22 09:00 06/07/22 08:58 06/07/22 08:44 06/07/22 07:59 98 Room Air 06/07/22 07:15 06/07/22 00:35 Room Air 06/07/22 00:12
--- NOTE | 2022-06-07 11:54 | Hospitalist Progress Note ---
Date of Service June 07, 2022 Assessment & Plan (1) Acute hypoxemic respiratory failure: Plan: Metabolic encephalopathy Noted to be only lethargic/confusion admit admission hx COPD/nocturnal hypoxemia/pulm hypertension as per records Multifactorial : Severe COVID-19 pneumonia HCAP possible aspiration, no overt sepsis for now Nasal MRSA: Negative Blood cultures: Negative Has been on IV Decadron and remdesivir Also getting intravenous Zosyn for aspiration pneumonia , day #4 Still requiring 5 L oxygen to maintain saturation Clinically stable with gradual improvement Has been requiring 2 L to maintain saturation Has had respiratory distress during dialysis Feeling better during my examination but will get an x-ray to rule out any other possibilities like pneumonia and atelectasis Has been feeling a lot better and has minimal cough without any shortness of breath at rest Wants to go home today and will have to have physical therapy before discharge Clinically much better to be discharged to [facility] Discussed with daughter and the patient will be discharged to [facility] this afternoon She will finish the course of dexamethasone and she will need another day of isolation Anorexia Likely secondary to COVID-19 virus infection Strongly advised to eat and drink more We will hold any insulin for now Has been tolerating advance diet Chest x-ray: 1. Small bilateral pleural effusions with increase in left basilar opacity which could reflect atelectasis or pneumonia. 2. Cardiomegaly. Slight improvement in pulmonary edema. Atrial fibrillation, rate controlled off anticoagulation due to hx ICH Troponin elevation Troponin went up to 1340 and reduced to 1024 on same day Troponin elevation secondary to above in the setting of kidney dysfunction And could be complicated by demand ischemia secondary to A. fib with RVR Doubt any ACS Heart rate is minimally elevated 112 Heart rate went up to 160/170 range as I was reported but during examination it came down to 120s We will get an EKG to document-showed tachycardia of 128 Today heart rate is around 98 without any symptoms Minimal tachycardia at 110s Rate is controlled and without any acute cardiac symptoms History of chronic systolic heart failure (EF 40 to 45%, TTE 2021)/ ESRD on HD -- HD today per Nephro hx CAD sp stenting valvular heart disease (severe TR, mild /MR ) - no cardiac symptoms -Appreciate nephrology input and recommendation -Has been having dialysis today and 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 tomorrow -We will have dialysis today and following that she will be discharged to [facility] History of recurrent CVA HTN -- monitor BP Hyperlipidemia on statin Rx History of cerebral amyloid angiopathy as per records 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 SCDs Re: Thrombocytopenia DNR as per patient's prior directives. Disposition anticipate return to [facility] when medically stable Return to [facility] this afternoon Admission and Anticipated Discharge Date Admission Date: May 29, 2022 Subjective 06/01/2022 The patient was seen and examined in telemetry unit and in the COVID room She has been weak and lethargic and remains anorexic Blood sugar is running low around 70s Has minimal shortness of breath at rest but denies any cough and no chest pain 06/02/2022 The patient was seen and examined in telemetry unit and in the COVID room She has been feeling a little better today and has been tolerating advance diet She has been saturating normally on 2 L nasal cannula 06/03/2022 The patient was seen and examined in telemetry unit and in the COVID room on 06/03/2022 06/04/2022 The patient was seen and examined in telemetry unit and in the COVID room She has been feeling much better She was noted to have very high pulse rate during dialysis today and is complaining of some back pain During my examination the back pain is almost gone and she does not have any more tachycardia like that Denies any chest pain, palpitation or shortness of breath No fever and no chills and she is saturating normally on 2 L of nasal cannula 06/05/2022 The patient was seen and examined in telemetry unit and in the COVID room She wants to go home and she has been feeling much better Minimal cough and has been maintaining saturation on room air No other significant symptoms 06/06/2022 Patient was seen and examined in the medical telemetry unit in the COVID room He has been feeling much better and asking when she can get out Denies any significant symptoms Will have hemodialysis tomorrow and cannot be done today 10/05/2022 The patient was seen and examined in medical telemetry unit and in the COVID room She does not have any more COVID symptoms Will have dialysis today and following that will be discharged to [facility] this afternoon She denies any significant symptoms today Review of Systems Review of Systems: All systems reviewed and are unremarkable except as noted below Respiratory: No respiratory symptoms Neurologic: Generally weak and lethargic. Moves all extremities. Physical Exam Physical Exam: Lying in bed comfortably Constitutional: average body habitus; not ill appearing Eyes: PERRL, conjunctivae normal, anicteric sclerae ENMT: external ear and nose normal, oropharynx normal Neck: trachea midline, no thyromegaly Respiratory: no respiratory distress (Minimal respiratory distress) Auscultation: + diminished lung sounds and + crackles (At the bases) Cardiovascular: Rate/Rhythm: + irregularly irregular; not tachycardic Heart Sounds: normal S1 and normal S2; no murmur Extremities: no edema Gastrointestinal (Abdomen): Inspection/Auscultation: normal bowel sounds; abdomen not distended Percussion/Palpation: abdomen soft; abdomen nontender Musculoskeletal: No acute arthritis involving any joint Neurologic: normal touch/pain/proprioception and moves all extremities; no focal motor deficits Lymphatic: no cervical or axillary lymphadenopathy Results & Data Results & Data ([facility]) Vital Signs (Past 12 Hours) Vital Signs Temp Pulse Pulse Pulse Resp BP BP 06/07/22 11:30 62 103/43 L 06/07/22 11:00 105 H 95/55 L 06/07/22 08:30 06/07/22 10:30 94 H 117/39 L 06/07/22 10:00 104 H 122/44 L 06/07/22 09:30 98 H 100/57 L 06/07/22 09:00 90 116/57 L 06/07/22 08:58 68 90/57 L 06/07/22 08:44 36.4 C L 113 H 06/07/22 07:59 36.4 C L 100 H 20 106/66 06/07/22 07:15 86 06/07/22 00:35 06/07/22 00:12 98 H Pulse Ox O2 Del Method 06/07/22 11:30 06/07/22 11:00 06/07/22 08:30 Room Air 06/07/22 10:30 06/07/22 10:00 06/07/22 09:30 06/07/22 09:00 06/07/22 08:58 06/07/22 08:44 06/07/22 07:59 98 Room Air 06/07/22 07:15 06/07/22 00:35 Room Air 06/07/22 00:12 Medications Administered Current Inpatient Medications Acetaminophen (Acetaminophen 325 Mg Tab) 650 mg PO Q4H PRN PRN Reason: Pain or Fever Stop: 06/28/22 21:28 Last Admin: 06/04/22 11:25 Dose: 650 mg Aspirin (Aspirin 81 Mg Ectab) 162 mg PO DAILY [facility] Stop: 06/29/22 08:59 Last Admin: 06/07/22 08:40 Dose: 162 mg Atorvastatin Calcium (Atorvastatin 40 Mg Tab) 80 mg PO DAILY [facility] Stop: 06/29/22 08:59 Last Admin: 06/07/22 08:40 Dose: 80 mg Calcitriol (Calcitriol 0.25 Mcg Capsule) 0.5 mcg PO MoWeFr@0900 [facility] Stop: 06/29/22 08:59 Last Admin: 06/06/22 08:28 Dose: 0.5 mcg Dextrose (Dextrose 50% 50 Ml Syringe) 25 - 50 ml IV UD PRN; Protocol PRN Reason: Hypoglycemia Protocol Stop: 06/28/22 21:28 Last Admin: 06/01/22 11:51 Dose: 25 ml Digoxin (Digoxin 0.125 Mg Tab) 0.125 mg PO MoWeFr@1600 [facility] Stop: 06/29/22 15:59 Last Admin: 06/06/22 17:06 Dose: 0.125 mg Docusate Sodium (Docusate Sodium 100 Mg Cap) 200 mg PO DAILY [facility] Stop: 06/29/22 08:59 Last Admin: 06/07/22 08:43 Dose: Not Given Glucagon (Glucagon For Inj 1 Mg Vial) 1 mg SQ UD PRN; Protocol PRN Reason: Hypoglycemia Protocol Stop: 06/28/22 21:28 Glucose (Glucose 40% Gel 15 Gm Tube) 15 - 30 gm PO UD PRN; Protocol PRN Reason: Hypoglycemia Protocol Stop: 06/28/22 21:28 Glucose (Glucose 10 Tab/Tube) 4 - 8 tab PO UD PRN; Protocol PRN Reason: Hypoglycemia Treatment Stop: 06/28/22 21:28 Dexamethasone 6 mg/ Syringe 1.5 mls @ 1 mls/min IV DAILY [facility] Stop: 06/29/22 08:59 Last Admin: 06/07/22 08:39 Dose: 1 mls/min Promethazine HCl 12.5 mg/ (Sodium Chloride) 50.5 mls @ 202 mls/hr IV Q6H PRN PRN Reason: Nausea And Vomiting Stop: 06/28/22 21:28 Sodium Chloride (Nss 1000ml) 1,000 mls @ 0 mls/hr IV .Q0M PRN PRN Reason: For Hemodialysis Use ONLY Stop: 06/07/22 12:59 Insulin Aspart (Insulin Aspart Per Unit) 0 units SC ACHS [facility] Stop: 06/28/22 21:28 Last Admin: 06/07/22 08:30 Dose: 6 units Lactobacillus Acidophilus (Advanced Probiotic 1250 Mg Capsule) 2 cap PO DAILY [facility] Stop: 06/29/22 08:59 Last Admin: 06/07/22 08:40 Dose: 2 cap Levalbuterol HCl (Levalbuterol Tartrate 15 Gm Hfa.Aer.Ad) 2 puffs INH Q6R PRN PRN Reason: Wheezing Stop: 06/29/22 00:59 Levetiracetam (Levetiracetam 500 Mg Tab) 500 mg PO MoWeFr@0600,1200,2000 [facility] Stop: 06/29/22 05:59 Last Admin: 06/06/22 22:09 Dose: 500 mg Levetiracetam (Levetiracetam 500 Mg Tab) 500 mg PO SuTuThSa@0800,1200 [facility] Stop: 06/30/22 07:59 Last Admin: 06/07/22 11:32 Dose: 500 mg Metoprolol Succinate (Metoprolol Succ 25mg Ext Rel Tab) 25 mg PO SuTuThSa@0900 [facility] Stop: 06/30/22 08:59 Last Admin: 06/07/22 08:40 Dose: 25 mg Miscellaneous (Carbohydrates For Hypoglycemia ) 15 - 30 gm PO UD PRN PRN Reason: Hypoglycemia Protocol Stop: 06/28/22 21:28
--- NOTE | 2022-06-08 07:57 | Discharge Summary ---
Date of Service June 07, 2022 Admission HPI Per Admitting Provider History obtained from patient, family, and records. Patient is a fair historian. Medical history significant for chronic systolic heart failure (EF 40 to 45%, TTE 2021), CAD sp stenting, valvular heart disease (severe TR, mild /MR ), COPD/nocturnal hypoxia/pulmonary hypertension as per records, history of recurrent CVA, HTN, hyperlipidemia, atrial fibrillation off anticoagulation due to hx ICH, cerebral amyloid angiopathy as per records, ESRD on HD, history of posttraumatic seizures, DM2 diet controlled, chronic anemia (baseline hemoglobin 11 ), mood disorder. Last confinement May 04 to 2022 for cardiorenal syndrome and influenza A. Cough symptoms improved on discharge as per patient. Patient tested positive for COVID-19 about 4 days ago as per long term documentation. Patient with fatigue symptoms. No chills, No fever. Paxlovid not given due to kidney dysfunction as per long term report. Patient later noted to have worsening cough symptoms. Patient admits to coughing with meals/water intake if not careful. No chest pain. Worsening shortness of breath noted today at the long term. O2 sats noted to be 80s on room air. Patient placed by EMS on CPAP initially Patient directed to ER for evaluation. Zosyn administered at the ER. MEDICAL HISTORY: As above. SURGERIES: section, knee surgery, cholecystectomy, tonsillectomy, sinus surgery, vascular procedures FAMILY HISTORY: Heart disease, RA, DM, heart disease, PERSONAL AND SOCIAL HISTORY: Nonsmoker. No chronic intake of alcoholic beverages. 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 Admission Exam Per Admitting Provider Physical Exam: GENERAL: Slightly uncomfortable, intermittent lethargy, no respiratory distress SKIN: Pallor, warm HEENT: Pale, palpebral conjunctivae, no ptosis, dry buccal mucosa, nasal cannula in place NECK : Supple, short neck no tenderness CHEST : decreased breath sounds, no tenderness HEART : Irregular, systolic murmur ABDOMEN: Some distention, nontender EXTREMITIES : Minimal LE swelling, no LE tenderness, no other conspicuous deformities noted NEUROLOGIC : Intermittent lethargy, no facial asymmetry, gait and stance not assessed Principal Diagnosis Acute hypoxic respiratory failure secondary to COVID-19 virus infection, end- stage renal disease on hemodialysis, atrial fibrillation not on any anticoagulation due to history of ICH, chronic diastolic heart failure Discharge Exam Lying in bed comfortably Constitutional average body habitus; not ill appearing Eyes PERRL, conjunctivae normal, anicteric sclerae ENMT external ear and nose normal, oropharynx normal Neck trachea midline, no thyromegaly Respiratory no respiratory distress (Minimal respiratory distress) Auscultation: + diminished lung sounds and + crackles (At the bases) Cardiovascular Rate/Rhythm: + irregularly irregular; not tachycardic Heart Sounds: normal S1 and normal S2; no murmur Extremities: no edema Gastrointestinal (Abdomen) Inspection/Auscultation: normal bowel sounds; abdomen not distended Percussion/Palpation: abdomen soft; abdomen nontender Neurologic normal touch/pain/proprioception and moves all extremities; no focal motor deficits Lymphatic no cervical or axillary lymphadenopathy Discharge Data Allergies Allergy/AdvReac Type Severity Reaction Status Date / Time verapamil Allergy Mild UNKNOWN Verified 05/29/22 18:03 lisinopril AdvReac Mild COUGH Verified 05/29/22 18:03 Consultations 05/29/22 18:55 ED Decision to Admit Stat 05/29/22 21:29 Consult Nephrology Routine Hospital Course (1) Acute hypoxemic respiratory failure: Metabolic encephalopathy Noted to be only lethargic/confusion admit admission hx COPD/nocturnal hypoxemia/pulm hypertension as per records Multifactorial : Severe COVID-19 pneumonia HCAP possible aspiration, no overt sepsis for now Nasal MRSA: Negative Blood cultures: Negative Has been on IV Decadron and remdesivir Also getting intravenous Zosyn for aspiration pneumonia , day #4 Still requiring 5 L oxygen to maintain saturation Clinically stable with gradual improvement Has been requiring 2 L to maintain saturation Has had respiratory distress during dialysis Feeling better during my examination but will get an x-ray to rule out any other possibilities like pneumonia and atelectasis Has been feeling a lot better and has minimal cough without any shortness of breath at rest Wants to go home today and will have to have physical therapy before discharge Clinically much better to be discharged to [facility] Discussed with daughter and the patient will be discharged to [facility] this afternoon She will finish the course of dexamethasone and she will need another day of isolation Anorexia Likely secondary to COVID-19 virus infection Strongly advised to eat and drink more We will hold any insulin for now Has been tolerating advance diet Chest x-ray: 1. Small bilateral pleural effusions with increase in left basilar opacity which could reflect atelectasis or pneumonia. 2. Cardiomegaly. Slight improvement in pulmonary edema. Atrial fibrillation, rate controlled off anticoagulation due to hx ICH Troponin elevation Troponin went up to 1340 and reduced to 1024 on same day Troponin elevation secondary to above in the setting of kidney dysfunction And could be complicated by demand ischemia secondary to A. fib with RVR Doubt any ACS Heart rate is minimally elevated 112 Heart rate went up to 160/170 range as I was reported but during examination it came down to 120s We will get an EKG to document-showed tachycardia of 128 Today heart rate is around 98 without any symptoms Minimal tachycardia at 110s Rate is controlled and without any acute cardiac symptoms History of chronic systolic heart failure (EF 40 to 45%, TTE 2021)/ ESRD on HD -- HD today per Nephro hx CAD sp stenting valvular heart disease (severe TR, mild /MR ) - no cardiac symptoms -Appreciate nephrology input and recommendation -Has been having dialysis today and 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 SCDs Re: Thrombocytopenia DNR as per patient's prior directives. Disposition anticipate return to [facility] when medically stable Return to [facility] this afternoon Total Time Total Time Spent Total Time Spent (In Minutes): 40 minutes Discharge Plan Discharge Items Patient Disposition: Transfer [facility] Reason For Visit: RESP FAILURE, COVID Discharge Diagnosis: Acute hypoxic respiratory failure secondary to COVID-19 virus infection, end- stage renal disease on hemodialysis, atrial fibrillation not on any anticoagulation due to history of ICH, chronic diastolic heart failure Condition on Discharge: Fair Activity: As commented below Activity Comment: Will need continued physical therapy Non-emergency contact: Primary Care Provider Call non-emergency contact if: you have any medication questions and your symptoms worsen Follow-up/Referrals: Cristiano Cerda MD [Primary Care Provider] - (Please make an appointment with your PCP within 7 days following discharge from the facility) Diet: Regular Diet Comment: Minced and moist Addtl Attending Provider Instructions: Please take precautions to avoid fall You will need 1 more day of isolation due to COVID-19 virus infection Please take your medications as advised Have regular dialysis as per folded towel machine operator Pending Studies at Discharge: No Stand-Alone Forms: My [facility] Skilled Items Patient informed of condition?: Yes DNR: Yes Discharge Level of Care: Skilled Communicable Disease: No Discharge Prognosis: Stable Lines: None Urinary Catheter: No Medications and DC Order Prescriptions: New metoprolol succinate 25 mg Tablet Extended Release 24 Hr 25 mg PO SuTuThSa@0900 Qty: 30 0RF Continued lidocaine-prilocaine 2.5-2.5 % cream 1 applic topical 3XWK Rx Instructions: apply a small amount to access AVF 30-60 min prior to dialysis, cover with occlusive dressing (saran wrap) atorvastatin 80 mg tablet 80 mg PO DAILY Qty: 30 0RF levetiracetam 500 mg Tablet 500 mg PO .TID ON DIALYSIS DAY Qty: 15 0RF Rx Instructions: on dialysis days takes 1st tablet of day at 0600 levetiracetam 500 mg Tablet 500 mg PO .BID UD Qty: 32 0RF Rx Instructions: Take am & noon on non dialysis days aspirin 81 mg Tablet,Delayed Release (Dr/Ec) 162 mg PO DAILY Qty: 30 0RF calcitriol 0.5 mcg Capsule 0.5 mcg PO 3XWK Qty: 12 0RF Rx Instructions: administer in dialysis docusate sodium [Colace] 100 mg Capsule 200 mg PO DAILY Qty: 60 0RF allopurinol 300 mg Tablet 450 mg PO DAILY Qty: 45 0RF lanthanum 1,000 mg Tablet,Chewable 1,000 mg PO TIDM Qty: 90 0RF Rx Instructions: take with 3 times a day with meals and 1 with snack 2x a day [id number] [Glucosamine Daily Complex] 1,500-400-100 mg-unit-mg Tablet 1 tab PO DAILY Qty: 30 0RF Rx Instructions: give after food/meal sennosides [senna] 8.6 mg Tablet 8.6 mg PO BID mirtazapine 15 mg Tablet 15 mg PO QPM ondansetron 4 mg Tablet,Disintegrating 4 mg PO DAILY digoxin [Digitek] 125 mcg (0.125 mg) Tablet 0.125 mg PO MoWeFr@1600 30 Days Qty: 13 0RF zinc sulfate 50 mg zinc (220 mg) capsule 50 mg PO DAILY zinc oxide 20 % ointment 1 applic TOPICAL UD Arginaid 4.5 gram-156 mg/9.2 gram powder in packet 9.2 g PO DAILY Discontinued metoprolol succinate 50 mg Tablet Extended Release 24 Hr 50 mg PO BID Rx Instructions: On NON dialysis days Discharge Orders: Discharge Order (Routine); Ordered 06/07/22 Ordered By: Erik Mark Discharge Order- CHF (Routine); Ordered 06/07/22 Ordered By: Erik Mark Admission Data Admit Date/Time: 05/29/22 19:56 Attending Provider: Erik Mark Admit Provider: Jame Blackman Primary Care Provider: Cristiano Cerda Other Providers: Jame Blackman ; Leeanne Lanza ; Nael Lorenz ; Anu Oliveros Japheth E. ; Tali Bergeron ; Lea Beverly ; Rudy Yuan ; Jaylen Rudolph Other Interventions: Discharge Summary Assessment (RN) Last Done: 06/07/22 13:02
== END 2022-06-07 14:08 | DRG 177 ==
LOC: ED 17:35 → SUATTDRO 19:56 → 2E 19:56 → 2N 06-05 22:56

== ENCOUNTER 2022-06-24 16:54 | Inpatient (IN) ==
[2022-06-24] MEDS ORDERED: OPTIRAY 320 500ml IV ONE (17:06)
--- NOTE | 2022-06-24 17:07 | CT Scan Report ---
HEAD CT NONCONTRAST CT DOSE: HISTORY: neuro deficit, acute stroke suspected TECHNIQUE: Multiaxial CT images of the head were performed without the use of intravenous contrast. A utomated exposure control was utilized for this study. A dose lowering technique was utilized adheri ng to the principles of ALARA. Comparison: Head CT 02/25/2022. Findings: Small fluid level within the right maxillary sinus and left sphenoid sinus. Trace bilateral mastoid effusions. The calvarium and skull base are intact. There is no mass, hematoma, midline shif t, acute infarct. White matter hypodensity is nonspecific but suggestive of microvascular ischemic ch sumit. The ventricles and sulci demonstrate mild age-related involutional changes. No change in the ol d scattered small infarcts within the supratentorial and infratentorial brain. Impression: No significant change compared to the prior study. No acute intracranial abnormality. Multiple old in farcts again noted. ACT 112: Negative or not required by law. Electronically signed by: Javon Tariq M.D. 06/24/2022 5:06 PM
[2022-06-24 17:25] LABS: Basophils # (auto) 0.04 K/uL (0-0.2); Basophils % (auto) 0.4 %; Eosinophils # (auto) 0.03 K/uL (0-0.50); Eosinophils % (auto) 0.3 %; Hemoglobin 11.8 g/dl (12.0-16.0); Immature Granulocytes # (auto) 0.09 K/uL (0.01-0.20); Immature Granulocytes % (auto) 0.9 %; Lymphocytes # (auto) 0.32 K/uL (1.2-3.4); Lymphocytes % (auto) 3.3 %; Mean Corpuscular Hemoglobin 33.3 pg (25.0-34.0); Mean Corpuscular Hgb Conc 31.9 g/dL (32.0-36.0); Mean Corpuscular Volume 104.5 fL (80.0-100.0); Mean Platelet Volume 11.8 fL (9.4-12.4); Monocytes # (auto) 0.57 K/uL (0.11-0.59); Monocytes % (auto) 5.9 %; Neutrophils # (auto) 8.61 K/uL (1.40-6.50); Neutrophils % (auto) 89.2 %; Nucleated RBC # (auto) 0.07 K/uL (0-0.12); Nucleated RBC % (auto) 0.7 %; Platelet Count 182 K/uL (130-400); RDW Standard Deviation 65.3 fL (36.4-46.3); Red Blood Count 3.54 M/uL (4.20-5.40); White Blood Count 9.66 K/ul (4.8-10.8)
--- NOTE | 2022-06-24 17:29 | CT Scan Report ---
HEAD & NECK CTA HISTORY: neuro deficit, acute stroke suspected TECHNIQUE: Multiaxial CT images of the head were performed following the intravenous administration o f contrast to evaluate the major cerebral vessels. Multiaxial CT images of the neck were also perform ed following the intravenous administration of contrast to evaluate the major cervical vessels. Maxim um intensity projection images were also obtained. A dose lowering technique was utilized adhering to the principles of ALARA. COMPARISON: Head CT 06/24/2022. Brain MRI 06/24/2016. Carotid Doppler 06/24/2016. Head and neck CTA 09/29. FINDINGS: There is no mass, hematoma, midline shift, or acute infarct. 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 The distal left vertebral artery is patent. Hypoplastic basilar artery remains patent and is likely due to the bilateral posterior circulations. Moderate calcified plaque wi thin the bilateral carotid siphons resulting in mild right and moderate left supraclinoid stenosis. T his remains unchanged. No significant stenosis, occlusion, or aneurysm within the bilateral ACAs, MCA s, lunchroom attendant. The major dural venous sinuses appear patent. The aortic arch and proximal great vessels are widely patent. Calcified plaque at the origin of the bilateral vertebral arteries results in moderate stenosis. This remains unchanged. The remaining fortino ateral vertebral arteries are patent. Moderate to severe calcified plaque within the bilateral caroti d bifurcations. This results in up to 50% narrowing within the proximal right internal carotid artery and up to 75% narrowing within the proximal left internal carotid artery. There is up to 40% narrowi ng within the mid to distal left common carotid artery due to the calcified plaque. Overall, this is similar to the prior study. IMPRESSION: 1. Mild right and moderate left supraclinoid ICA stenosis, unchanged. 2. No significant stenosis, occlusion, aneurysm within the bilateral ACAs, MCAs, or lunchroom attendant. 3. No significant change in the 50% stenosis within the proximal right internal carotid artery and 75 % stenosis within the proximal left internal carotid artery. ACT 112: Negative or not required by law. Electronically signed by: Javon Tariq M.D. 06/24/2022 5:27 PM
--- NOTE | 2022-06-24 17:29 | CT Scan Report ---
HEAD & NECK CTA HISTORY: neuro deficit, acute stroke suspected TECHNIQUE: Multiaxial CT images of the head were performed following the intravenous administration o f contrast to evaluate the major cerebral vessels. Multiaxial CT images of the neck were also perform ed following the intravenous administration of contrast to evaluate the major cervical vessels. Maxim um intensity projection images were also obtained. A dose lowering technique was utilized adhering to the principles of ALARA. COMPARISON: Head CT 06/24/2022. Brain MRI 06/24/2016. Carotid Doppler 06/24/2016. Head and neck CTA 09/29. FINDINGS: There is no mass, hematoma, midline shift, or acute infarct. 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 The distal left vertebral artery is patent. Hypoplastic basilar artery remains patent and is likely due to the bilateral posterior circulations. Moderate calcified plaque wi thin the bilateral carotid siphons resulting in mild right and moderate left supraclinoid stenosis. T his remains unchanged. No significant stenosis, occlusion, or aneurysm within the bilateral ACAs, MCA s, compliance paralegal. The major dural venous sinuses appear patent. The aortic arch and proximal great vessels are widely patent. Calcified plaque at the origin of the bilateral vertebral arteries results in moderate stenosis. This remains unchanged. The remaining fortino ateral vertebral arteries are patent. Moderate to severe calcified plaque within the bilateral caroti d bifurcations. This results in up to 50% narrowing within the proximal right internal carotid artery and up to 75% narrowing within the proximal left internal carotid artery. There is up to 40% narrowi ng within the mid to distal left common carotid artery due to the calcified plaque. Overall, this is similar to the prior study. IMPRESSION: 1. Mild right and moderate left supraclinoid ICA stenosis, unchanged. 2. No significant stenosis, occlusion, aneurysm within the bilateral ACAs, MCAs, or compliance paralegal. 3. No significant change in the 50% stenosis within the proximal right internal carotid artery and 75 % stenosis within the proximal left internal carotid artery. ACT 112: Negative or not required by law. Electronically signed by: Javon Tariq M.D. 06/24/2022 5:27 PM
[2022-06-24 17:46] LABS: Albumin Level 2.7 gm/dl (3.4-5.0); Bilirubin,Total 0.7 mg/dl (0.2-1.0); Calcium 8.6 mg/dl (8.5-10.1); Creatinine Clr Calc Pharmacy 20.8 ml/min; Est GFR (African American) 22.5 ml/min; Est GFR (Non-African American) 19.4 ml/min; Globulin 2.7 gm/dl (2.5-4.0); Magnesium 1.7 mg/dl (1.7-2.4); Total Protein 5.4 gm/dl (6.0-8.3)
[2022-06-24 18:00] LABS: Troponin I High Sensitivity 128.3 pg/ml (0-14)
[2022-06-24 18:03] LABS: INR 1.1 (0.9-1.1); Partial Thromboplastin Ratio 0.9; Partial Thromboplastin Time 24.4 Seconds (21.0-31.0); Prothrombin Time 11.4 Seconds (9.0-12.0)
[2022-06-24 18:03] LABS: Appearance Urine Turbid (Clear); Bacteria Urine Automated 1+ (Negative); Bilirubin Urine Negative (Negative); Blood Urine 3+ (Negative); Color Urine Orange; Glucose Urine UA Negative (Negative); Ketones Urine Negative (Negative); Leukocyte Esterase Urine 3+ (Negative); Nitrite Urine Positive (Negative); RBC Urine Automated 0-4 /hpf (0-4); Specific Gravity Urine 1.017 (1.000-1.030); Urobilinogen Urine Negative (Negative); WBC Urine Automated >30 /hpf (0-5)
[2022-06-24 18:05] LABS: Protein Urine 3+ (Negative)
[2022-06-24] MEDS ORDERED: cefTRIAXone SODIUM 2,000 MG/70 ML BAG IV STA (18:22)
--- NOTE | 2022-06-24 18:32 | XRay Report ---
XR chest 1V portable HISTORY: stroke like symptoms, syncope COMPARISON: Chest 05/29/2022. FINDINGS: Rotated study. No pneumothorax. The cardiac silhouette remains moderately enlarged. Mild in terstitial pulmonary edema and a trace right pleural effusion. Calcifications within the aortic knob. IMPRESSION: Cardiomegaly with mild interstitial pulmonary edema and a trace right pleural effusion. ACT 112: Negative or not required by law. Electronically signed by: Javon Tariq M.D. 06/24/2022 6:30 PM
[2022-06-24] MEDS ORDERED: SODIUM CHLORIDE 0.9% 1000ML 250 ML IV ONE (19:07)
[2022-06-24] MEDS ORDERED: CEFEPIME 2,000 MG/20 ML VIAL IV STA (19:21)
[2022-06-24] MEDS ORDERED: dexAMETHasone 4 MG in SYRINGE 0 ML IV ONE (19:22)
[2022-06-24] MEDS ORDERED: ALBUMIN 25% 100 mL 25 GM/100 ML VIAL IV ONE (19:24)
--- NOTE | 2022-06-24 20:04 | History & Physical Report ---
Date of Service June 24, 2022 Assessment & Plan (1) Unresponsiveness: Plan: history chronic cognitive impairment Likely secondary to acute on chronic hypotension Multifactorial : Possible severe sepsis from complicated UTI given lactic acidosis ? Adrenal insufficiency, recent Decadron Rx for COVID-19 pneumonia last month Troponin elevation secondary to illness, rapid A-fib in the setting of kidney dysfunction Patient not on anticoagulation secondary to history ICH, history of cerebral amyloid angiopathy hx COPD/nocturnal hypoxemia/pulm hypertension, oxygenation stable hx chronic systolic heart failure, equivocal volume status given congestion and x-ray and low BP hx CAD sp stenting valvular heart disease (severe TR, mild /MR ) history of recurrent CVA hyperlipidemia on statin Rx hx posttraumatic seizures on Keppra prophylaxis DM2 diet controlled, BSG currently elevated, well-controlled as of recent hemoglobin A1c of 5.4 last May 2022 chronic anemia, hemoglobin at baseline episodic thrombocytopenia Recurrent hospital admissions PCU CS, Cefepime Follow lactic acid response to IV albumin Decadron 1 dose now for possible adrenal insufficiency Initiate low-dose midodrine Nephrology consult Re: Dialysis management Basal bolus insulin, ISS BG goal 1 10-1 40, carb count coverage DVT prophylaxis. SCDs Re: Episodic thrombocytopenia Goals of care reviewed with patient's daughter (Ms. Christine Kamara, contact #[phone]) given recurrent confinements. Patient daughter not ready for palliative care. " I won't give up on my mother." Patient's prior DNR directives however affirmed. Total critical care time was 45 minutes. Text document was generated using [employer] voice recognition software. It may contain grammatical or spelling errors. Kindly contact undersigned for clarification of any documentation item in question. History of Present Illness Chief Complaint: Unresponsiveness, hypotension Primary Care Provider: Cristiano Cerda MD History obtained from patient, family, and records. Limited history from patient secondary to chronic cognitive impairment. Medical history significant for chronic systolic heart failure (EF 40 to 45%, TTE 2021), CAD sp stenting, valvular heart disease (severe TR, mild /MR ), COPD/nocturnal hypoxia/pulmonary hypertension as per records, history of recurrent CVA, HTN, hyperlipidemia, atrial fibrillation off anticoagulation due to hx ICH, cerebral amyloid angiopathy as per records, ESRD on HD, history of posttraumatic seizures, DM2 diet controlled, chronic anemia (baseline hemoglobin 11 ),, episodic thrombocytopenia, cognitive impairment as per records, mood disorder Two confinements last month for respiratory failure. First confinement from May 04 to for cardiorenal syndrome and influenza A. Second confinement from May 29 to June 07 4 severe COVID-19 pneumonia/HCAP. Patient completed Decadron, Remdesivir and Zosyn course. Patient noted to be agitated by daughter this afternoon upon return from dialysis. Patient later on noted to have decreased responsiveness. Resident slumped forward. Question of slurred speech when patient woke up. No witnessed seizures. SBP 70s at the custodial. Patient noted to be tachycardic heart rate 130s. Stroke alert called upon arrival at the ER but subsequently canceled due to absence of focal neurologic deficits as per ER provider. Patient currently awake and at baseline mentation as per daughter. Patient does not know why she is at the ER. Denies chest pain, SOB, abdominal pain, headache, dysuria symptoms. Complaining of chronic left upper extremity pain. MEDICAL HISTORY: As above. SURGERIES: section, knee surgery, cholecystectomy, tonsillectomy, sinus surgery, vascular procedures FAMILY HISTORY: Heart disease, RA, DM, heart disease, PERSONAL AND SOCIAL HISTORY: Nonsmoker. 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 Allergies Allergy/AdvReac Type Severity Reaction Status Date / Time verapamil Allergy Unknown ON [facility]INDY Verified 06/24/22 17:55 [facility] lisinopril AdvReac Intermediate COUGH Verified 06/24/22 17:55 Home Medications Medication Instructions Recorded Confirmed Type lidocaine-prilocaine 2.5 %-2.5 % 1 applic topical 3XWK 02/25/22 06/24/22 History topical cream allopurinol 300 mg tablet 450 mg PO DAILY #45 tabs 03/01/22 06/24/22 Rx aspirin 81 mg tablet,delayed 162 mg PO DAILY #30 tabs 03/01/22 06/24/22 Rx release atorvastatin 80 mg tablet 80 mg PO DAILY #30 tabs 03/01/22 06/24/22 Rx calcitriol 0.5 mcg capsule 0.5 mcg PO 3XWK #12 caps 03/01/22 06/24/22 Rx docusate sodium 100 mg capsule 200 mg PO DAILY #60 caps 03/01/22 06/24/22 Rx (Colace) glucosamine [id number] 1 tab PO DAILY #30 tabs 03/01/22 06/24/22 Rx rhiannon 1,500 mg-400 unit-100 mg tablet (Glucosamine Daily Complex) digoxin 125 mcg (0.125 mg) tablet 125 mcg PO 3XWK 06/24/22 06/24/22 History levetiracetam 500 mg tablet 500 mg PO 3XWK 06/24/22 06/24/22 History levetiracetam 500 mg tablet 500 mg PO 4XWK 06/24/22 06/24/22 History metoprolol succinate 25 mg 25 mg PO 4XWK 06/24/22 06/24/22 History tablet,extended release 24 hr nutritional supplements 1 ea PO DAILY 06/24/22 06/24/22 History Past Med/Surg History Medical History Acromioclavicular joint separation Atrial fibrillation CAD (coronary artery disease) "LEONA to LAD cath 2014 - moderate non obstructive disease" Carotid stenosis, bilateral Cerebral amyloid angiopathy Clavicle fracture Closed left fibular fracture Contraindication to anticoagulation therapy Depression DM type 2 (diabetes mellitus, type 2) Dyslipidemia End stage renal disease Falls frequently Fracture, humerus GERD (gastroesophageal reflux disease) HTN (hypertension) IBS (irritable bowel syndrome) Nontraumatic intracerebral hemorrhage Palliative care encounter Pressure injury of back, unstageable Seizure disorder Surgical History AV fistula H/O sinus surgery History of total left knee replacement S/P cholecystectomy Social History Smoking Status: Never smoker Second Hand Exposure: Yes; Hx Alcohol Use: No Hx Substance Use: No Preferred Language: Thai Communication Ability: Effective Wildlife Officer Required: No Beliefs That Will Affect Care: None marital status: / Current Living Situation: Assisted Current Living Situation Comment: lives alone Other Information That Helps Us Care for You: No Feels Safe at Home: Yes Safety Concerns: Feels Safe At This Time Assistive Devices: Denture - Upper, Denture - Lower, Glasses, Oxygen - Continuous and Wheelchair Review of Systems Review of Systems: Could not be reliably obtained secondary to chronic cognitive impairment Physical Exam Physical Exam: GENERAL: Comfortable, disoriented, no respiratory distress SKIN: Pallor, warm HEENT: Bespectacled, pale, palpebral conjunctivae, no ptosis, dry buccal mucosa NECK : Supple, short neck no tenderness CHEST : decreased breath sounds, no tenderness HEART : Irregular, systolic murmur ABDOMEN: Some distention, nontender EXTREMITIES : Minimal LE swelling, no LE tenderness, no other conspicuous deformities noted NEUROLOGIC : I disoriented, no facial asymmetry, gait and stance not assessed Results & Data Results & Data ([facility]) Vital Signs (Past 12 Hours) Vital Signs Temp Pulse Resp BP Pulse Ox O2 Del Method O2 Flow Rate 06/24/22 19:30 112 H 22 84/52 L 06/24/22 19:20 105 H 23 06/24/22 19:16 108 H 19 06/24/22 19:16 64/31 L 06/24/22 19:10 104 H 20 06/24/22 19:07 107 H 06/24/22 19:05 45/29 L 06/24/22 19:05 113 H 21 06/24/22 19:02 109 H 23 06/24/22 19:02 60/40 L 06/24/22 19:00 114 H 13 06/24/22 19:00 66/42 L 06/24/22 18:50 114 H 24 06/24/22 18:40 116 H 25 H 06/24/22 18:30 120 H 24 06/24/22 18:20 107 H 23 06/24/22 18:10 118 H 20 06/24/22 18:00 119 H 26 H 06/24/22 17:50 112 H 23 06/24/22 17:40 118 H 23 06/24/22 17:31 76/45 L 06/24/22 17:31 130 H 15 06/24/22 17:30 118 H 21 06/24/22 17:24 112 H 25 H 06/24/22 17:00 36.7 C 115 H 22 83/61 L 98 Nasal Cannula 2 Laboratory Results Laboratory Results WBC 9.66 K/ul (4.8-10.8) 06/24/22 17:12 RBC 3.54 M/uL (4.20-5.40) L 06/24/22 17:12 Hgb 11.8 g/dl (12.0-16.0) L 06/24/22 17:12 Hct 37.0 % (37.0-47.0) 06/24/22 17:12 MCV 104.5 fL (80.0-100.0) H 06/24/22 17:12 MCH 33.3 pg (25.0-34.0) 06/24/22 17:12 MCHC 31.9 g/dL (32.0-36.0) L 06/24/22 17:12 RDW Std Deviation 65.3 fL (36.4-46.3) H 06/24/22 17:12 RDW Coeff of Edin 17.0 % (11.5-14.5) H 06/24/22 17:12 Plt Count 182 K/uL (130-400) 06/24/22 17:12 MPV 11.8 fL (9.4-12.4) 06/24/22 17:12 Immature Gran % (Auto) 0.9 % 06/24/22 17:12 Neut % (Auto) 89.2 % 06/24/22 17:12 Lymph % (Auto) 3.3 % 06/24/22 17:12 [place] % (Auto) 5.9 % 06/24/22 17:12 Eos % (Auto) 0.3 % 06/24/22 17:12 Baso % (Auto) 0.4 % 06/24/22 17:12 Neut # (Auto) 8.61 K/uL (1.40-6.50) H 06/24/22 17:12 Lymph # (Auto) 0.32 K/uL (1.2-3.4) L 06/24/22 17:12 [place]cdowell # (Auto) 0.57 K/uL (0.11-0.59) 06/24/22 17:12 Eos # (Auto) 0.03 K/uL (0-0.50) 06/24/22 17:12 Baso # (Auto) 0.04 K/uL (0-0.2) 06/24/22 17:12 Immature Gran # (Auto) 0.09 K/uL (0.01-0.20) 06/24/22 17:12 Absolute Nucleated RBC 0.07 K/uL (0-0.12) 06/24/22 17:12 Nucleated RBC % (auto) 0.7 % 06/24/22 17:12 PT 11.4 Seconds (9.0-12.0) 06/24/22 17:12 INR 1.1 (0.9-1.1) 06/24/22 17:12 APTT 24.4 Seconds (21.0-31.0) 06/24/22 17:12 PTT Ratio 0.9 06/24/22 17:12 Sodium 139 mmol/L (136-145) 06/24/22 17:12 Potassium 4.0 mmol/L (3.5-5.1) 06/24/22 17:12 Chloride 98 mmol/L (98-107) 06/24/22 17:12 Carbon Dioxide 32 mmol/L (21-32) 06/24/22 17:12 Anion Gap 9 (3-11) 06/24/22 17:12 BUN 14 mg/dl (6-23) 06/24/22 17:12 Creatinine 2.33 mg/dl (0.6-1.2) H 06/24/22 17:12 Est Cr Clr Drug Dosing 20.8 ml/min 06/24/22 17:12 Est GFR ( Amer) 22.5 ml/min 06/24/22 17:12 Est GFR (Non-Af Amer) 19.4 ml/min 06/24/22 17:12 BUN/Creatinine Ratio 6.0 (10-20) L 06/24/22 17:12 Glucose 175 mg/dl (70-99(Fasting)) H 06/24/22 17:12 Calcium 8.6 mg/dl (8.5-10.1) 06/24/22 17:12 Magnesium 1.7 mg/dl (1.7-2.4) 06/24/22 17:12 Total Bilirubin 0.7 mg/dl (0.2-1.0) 06/24/22 17:12 AST 16 U/L (13-39) 06/24/22 17:12 ALT 10 U/L (7-52) 06/24/22 17:12 Alkaline Phosphatase 77 U/L (34-104) 06/24/22 17:12 Troponin I High Sens 128.3 pg/ml (0-14) H* 06/24/22 17:12 Total Protein 5.4 gm/dl (6.0-8.3) L 06/24/22 17:12 Albumin 2.7 gm/dl (3.4-5.0) L 06/24/22 17:12 Globulin 2.7 gm/dl (2.5-4.0) 06/24/22 17:12 Albumin/Globulin Ratio 1.0 (0.9-2) 06/24/22 17:12 Urine Color [place] 06/24/22 17:40 Urine Appearance Turbid (Clear) A 06/24/22 17:40 Urine pH 8.0 (4.5-7.5) H 06/24/22 17:40 Ur Specific [place] 1.017 (1.000-1.030) 06/24/22 17:40 Urine Protein 3+ (Negative) H 06/24/22 17:40 Urine Glucose (UA) Negative (Negative) 06/24/22 17:40 Urine Ketones Negative (Negative) 06/24/22 17:40 Urine Blood 3+ (Negative) H 06/24/22 17:40 Urine Nitrite Positive (Negative) A 06/24/22 17:40 Urine Bilirubin Negative (Negative) 06/24/22 17:40 Urine Urobilinogen Negative (Negative) 06/24/22 17:40 Ur Leukocyte Esterase 3+ (Negative) H 06/24/22 17:40 Urine WBC (Auto) >30 /hpf (0-5) H 06/24/22 17:40 Urine RBC (Auto) 0-4 /hpf (0-4) 06/24/22 17:40 U Hyaline Cast (Auto) 5-10 /lpf (0-5) H 06/24/22 17:40 U Epithel Cells (Auto) 10-20 /lpf (0-5) H 06/24/22 17:40 Urine Bacteria (Auto) 1+ (Negative) H 06/24/22 17:40 SARS-CoV-2, RNA, NAAT POSITIVE (NEGATIVE) A* 06/24/22 18:49 Blood Type A Positive 06/24/22 17:12 Antibody Screen NEGATIVE 06/24/22 17:[address] 06/24/22 16:[address] DOSE: HISTORY: neuro deficit, acute stroke suspected TECHNIQUE: Multiaxial CT images of the head were performed without the use of intravenous contrast. Automated exposure control was utilized for this study. A dose lowering technique was utilized adhering to the principles of ALARA. Comparison: Head CT 02/25/2022. Findings: Small fluid level within the right maxillary sinus and left sphenoid sinus. Trace bilateral mastoid effusions. The calvarium and skull base are intact. There is no mass, hematoma, midline shift, acute infarct. White matter hypodensity is nonspecific but suggestive of microvascular ischemic change. The ventricles and sulci demonstrate mild age-related involutional changes. No change in the old scattered small infarcts within the supratentorial and infratentorial brain. Impression: No significant change compared to the prior study. No acute intracranial abnormality. Multiple old infarcts again noted. ACT 112: Negative or not required by law. Electronically signed by: Javon Tariq M.D. 06/24/2022 5:06 PM Head CTA 06/24/22 16:49 HEAD & NECK CTA HISTORY: neuro deficit, acute stroke suspected TECHNIQUE: Multiaxial CT images of the head were performed following the intravenous administration of contrast to evaluate the major cerebral vessels. Multiaxial CT images of the neck were also performed following the intravenous administration of contrast to evaluate the major cervical vessels. Maximum intensity projection images were also obtained. A dose lowering technique was utilized adhering to the principles of ALARA. COMPARISON: Head CT 06/24/2022. Brain MRI 06/24/2016. Carotid Doppler 06/24/2016. Head and neck CTA 10/10/2019. FINDINGS: There is no mass, hematoma, midline shift, or acute infarct. Severely hypoplastic distal right vertebral artery, unchanged. The distal left vertebral artery is patent. Hypoplastic basilar artery remains patent and is likely due to the bilateral posterior circulations. Moderate calcified plaque within the bilateral carotid siphons resulting in mild right and moderate left supraclinoid stenosis. This remains unchanged. No significant stenosis, occlusion, or aneurysm within the bilateral ACAs, MCAs, lining setter. The major dural venous sinuses appear patent. The aortic arch and proximal great vessels are widely patent. Calcified plaque at the origin of the bilateral vertebral arteries results in moderate stenosis. This remains unchanged. The remaining bilateral vertebral arteries are patent. Moderate to severe calcified plaque within the bilateral carotid bifurcations. This results in up to 50% narrowing within the proximal right internal carotid artery and up to 75% narrowing within the proximal left internal carotid artery. There is up to 40% narrowing within the mid to distal left common carotid artery due to the calcified plaque. Overall, this is similar to the prior study. IMPRESSION: 1. Mild right and moderate left supraclinoid ICA stenosis, unchanged. 2. No significant stenosis, occlusion, aneurysm within the bilateral ACAs, MCAs, or lining setter. 3. No significant change in the 50% stenosis within the proximal right internal carotid artery and 75% stenosis within the proximal left internal carotid artery. ACT 112: Negative or not required by law. Electronically signed by: Javon Tariq M.D. 06/24/2022 5:27 PM Neck CTA 06/24/22 16:49 HEAD & NECK CTA HISTORY: neuro deficit, acute stroke suspected TECHNIQUE: Multiaxial CT images of the head were performed following the intravenous administration of contrast to evaluate the major cerebral vessels. Multiaxial CT images of the neck were also performed following the intravenous administration of contrast to evaluate the major cervical vessels. Maximum intensity projection images were also obtained. A dose lowering technique was utilized adhering to the principles of ALARA. COMPARISON: Head CT 06/24/2022. Brain MRI 06/24/2016. Carotid Doppler 06/24/2016. Head and neck CTA 10/10/2019. FINDINGS: There is no mass, hematoma, midline shift, or acute infarct. Severely hypoplastic distal right vertebral artery, unchanged. The distal left vertebral artery is patent. Hypoplastic basilar artery remains patent and is likely due to the bilateral posterior circulations. Moderate calcified plaque within the bilateral carotid siphons resulting in mild right and moderate left supraclinoid stenosis. This remains unchanged. No significant stenosis, occlusion, or aneurysm within the bilateral ACAs, MCAs, lining setter. The major dural venous sinuses appear patent. The aortic arch and proximal great vessels are widely patent. Calcified plaque at the origin of the bilateral vertebral arteries results in moderate stenosis. This remains unchanged. The remaining bilateral vertebral arteries are patent. Moderate to severe calcified plaque within the bilateral carotid bifurcations. This results in up to 50% narrowing within the proximal right internal carotid artery and up to 75% narrowing within the proximal left internal carotid artery. There is up to 40% narrowing within the mid to distal left common carotid artery due to the calcified plaque. Overall, this is similar to the prior study. IMPRESSION: 1. Mild right and moderate left supraclinoid ICA stenosis, unchanged. 2. No significant stenosis, occlusion, aneurysm within the bilateral ACAs, MCAs, or lining setter. 3. No significant change in the 50% stenosis within the proximal right internal carotid artery and 75% stenosis within the proximal left internal carotid artery. ACT 112: Negative or not required by law. Electronically signed by: Javon Tariq M.D. 06/24/2022 5:27 PM Chest X-Ray 06/24/22 17:29 XR chest 1V portable HISTORY: stroke like symptoms, syncope COMPARISON: Chest 05/29/2022. FINDINGS: Rotated study. No pneumothorax. The cardiac silhouette remains moderately enlarged. Mild interstitial pulmonary edema and a trace right pleural effusion. Calcifications within the aortic knob. IMPRESSION: Cardiomegaly with mild interstitial pulmonary edema and a trace right pleural effusion. ACT 112: Negative or not required by law. Electronically signed by: Javon Tariq M.D. 06/24/2022 6:30 PM Diagnostic Findings EKG as per my interpretation : Rate 120, A-fib, LAD, LSB, septal infarct, T wave abnormalities lateral leads
--- NOTE | 2022-06-24 20:43 | Emergency Department Note ---
Impression & Plan Syncope and collapse, End stage renal disease, Stroke-like symptoms, Elevated troponin, UTI (urinary tract infection) ED Provider Note INFORMANT: Patient, EMS and daughter ED PROVIDER(S): Brandan Daniel MD CHIEF COMPLAINT: Strokelike symptoms PLAN: Disposition: Admitted Condition: Good Outpatient prescription management: none Referral: None MEDICAL DECISION MAKING: Patient situation is complicated by the history of COVID-19,chronic systolic heart failure (EF 40 to 45%, TTE 2021), CAD sp stenting, valvular heart disease (severe TR, mild /MR ). Patient was made a stroke alert based upon EMS report. Patient went emergently to CT imaging. There was concerns that she has a history of ICH. Due to the history obtained from the daughter and the history of ICH the patient was not felt to be a candidate for thrombolysis. On assessment her examination was at baseline per the daughter. On further historical gathering it sounds like the patient had a syncopal event and exhibited some strokelike symptoms. Her CT and CT angiography was did not reveal any acute findings. The patient had an unremarkable CBC and her chemistry panel showed her elevated creatinine as expected. Patient did have an elevated troponin. She had some mild rapid atrial fibrillation without ischemia noted on ECG. This was concerning in light of the syncopal event that this was a primary cardiac etiology. The patient was monitored. A catheter urinalysis specimen was obtained. She did have signs on urinalysis concerning for UTI. Culture was sent. Patient was treated with Roce phin. The patient had a transient drop in her blood pressure which the daughter noticed happened before. She states that the patient typically runs between 60 and 80 systolic. Patient was asymptomatic with this. Patient was given a gentle fluid bolus. 30 mL/kg fluid bolus was deferred due to the patient's situation seeming cardiac and her history of CHF and dialysis. She is afebrile and has no leukocytosis. She did have an elevated lactate. I do not suspect a sepsis-like syndrome here. I believe this is related more to a primary cardiac issue and perfusion. Patient will need further management in the hospital. [facility] Case was discussed and diagnostics were reviewed. He evaluated the patient in the ER and admitted her. After review of the information above and other included data, I feel the patient disposition requires admission. Triage Nursing notes reviewed and agree them. Vital Signs: reviewed and remarkable for borderline hypotension Prior /Outside records reviewed: Previous hospitalization and discharge records reviewed. Differential diagnosis: CVA, TIA, dysrhythmia, ACS, infection, dehydration, metabolic abnormality, hypo/hyperglycemia, electrolyte disturbance, anemia, hypoxia, intracerebral event, toxicologic, neurologic, as well as other pathologies. Diagnostics, as interpreted by me: ECG: Twelve-lead ECG reveals atrial fibrillation with RVR at 120 bpm. Left axis deviation. Septal Q wave. No ST elevation. Cardiac Monitoring: Cardiac monitoring ordered by me: The patient was placed on continuous cardiac monitoring and observed. It revealed a atrial fibrillation at 104 beats per minute. Medical decision rules: none Imaging studies: CT scan of the head and angiography revealed old infarct but no acute ICH or CVA. The patient had some pulm edema and cardiomegaly on chest x- ray without evidence of pneumonia. HPI: The patient is a 76 year old female who presents to the Emergency Room after a syncopal episode and exhibiting strokelike symptoms. Patient is at [facility]. She is debilitated and is on chronic dialysis due to end- stage renal disease. Patient had dialysis today. She was with family and the patient seemed to become agitated and she then seemed to be drooling and became unresponsive. She was slumped in her chair. Prior to the event the daughter states she was basically at her baseline. EMS was summoned. Medical command was contacted and the patient was made a stroke alert. Daughter did note that the patient had a history of intracranial hemorrhage about 7 years ago. Upon arrival to the emergency department the patient had no facial droop or lateral izing findings. Daughter is present and states that she appears at her baseline. The patient has been given no medication or treatment prehospital relieving factors. Current pain is rated as 0/10. History is limited as the patient does have some memory impairment. Pt denies headache, fevers, chills, visual changes, neck pain, chest pain, breathing difficulties, nausea, vomiting, abdominal pain, back pain, numbness, or other complaints. PAST MEDICAL HISTORY: See Below, end-stage renal disease, ICH, COVID-19 PAST SURGICAL HISTORY: See Below, fistula SOCIAL HISTORY: See Below, retired HOME MEDICATIONS: See Below ALLERGIES: See Below VITALS: See Below PHYSICAL EXAMINATION: GENERAL: Awake, alert, well-appearing, in no distress HENT: Normocephalic, atraumatic. Oropharynx unremarkable. EYES: Normal conjunctiva. Sclera non-icteric. PERRLA. EOMI. NECK: Inspection normal. Non-tender. Supple. No nuchal rigidity. FROM. No masses. RESPIRATORY: Clear to auscultation. No wheezes. No rales. Normal respiratory effort. CARDIAC: Tachycardic rate. Irregular rhythm. No murmurs. No rubs. GI: Soft, non-distended. No tenderness to palpation. No rebound or guarding. No masses. RECTAL: Deferred. MUSCULOSKELETAL: Atraumatic except for an ulcer noted on the right heel which the daughter states is chronic. Chest examination reveals no tenderness. The back is symmetrical on inspection without obvious abnormality. There is no CVA tenderness to palpation. No joint edema. Calves are equal size bilaterally and non-tender. No edema. No discoloration. NEURO: Relatively normal sensorium. Generally weak but no focal sensory or motor deficits noted. SKIN: No rash or jaundice noted. CRITICAL CARE: I have personally spent greater than 36 minutes of critical care time in the direct management of this patient. This includes bedside care, interpretation of diagnostic studies, and testing, discussion with consultants, patient, and family members, and other required patient management activities. These minutes are in excess of all separately billable procedures. Past Med/Surg History Medical History Acromioclavicular joint separation Atrial fibrillation CAD (coronary artery disease) "LEONA to LAD cath 2014 - moderate non obstructive disease" Carotid stenosis, bilateral Cerebral amyloid angiopathy Clavicle fracture Closed left fibular fracture Contraindication to anticoagulation therapy Depression DM type 2 (diabetes mellitus, type 2) Dyslipidemia End stage renal disease Falls frequently Fracture, humerus GERD (gastroesophageal reflux disease) HTN (hypertension) IBS (irritable bowel syndrome) Nontraumatic intracerebral hemorrhage Palliative care encounter Pressure injury of back, unstageable Seizure disorder Surgical History AV fistula H/O sinus surgery History of total left knee replacement S/P cholecystectomy Social History Smoking Status: Never smoker Second Hand Exposure: Yes; Hx Alcohol Use: No Hx Substance Use: No Preferred Language: Amharic Communication Ability: Effective Line Worker Required: No Beliefs That Will Affect Care: None marital status: / Current Living Situation: Long Term Current Living Situation Comment: lives alone Other Information That Helps Us Care for You: No Feels Safe at Home: Yes Safety Concerns: Feels Safe At This Time Assistive Devices: Denture - Upper, Denture - Lower, Glasses, Oxygen - Continuous and Wheelchair Allergies Allergies Allergy/AdvReac Type Severity Reaction Status Date / Time verapamil Allergy Unknown ON WINDY Verified 06/24/22 17:55 [facility] MED LIST lisinopril AdvReac Intermediate COUGH Verified 06/24/22 17:55 Home Meds Home Medications Medication Instructions Recorded Confirmed lidocaine-prilocaine 2.5 %-2.5 % 1 applic topical 3XWK 02/25/22 06/24/22 topical cream digoxin 125 mcg (0.125 mg) tablet 125 mcg PO 3XWK 06/24/22 06/24/22 levetiracetam 500 mg tablet 500 mg PO 3XWK 06/24/22 06/24/22 levetiracetam 500 mg tablet 500 mg PO 4XWK 06/24/22 06/24/22 metoprolol succinate 25 mg 25 mg PO 4XWK 06/24/22 06/24/22 tablet,extended release 24 hr nutritional supplements 1 ea PO DAILY 06/24/22 06/24/22 Previous Rx's Medication Instructions Recorded allopurinol 300 mg tablet 450 mg PO DAILY #45 tabs 03/01/22 aspirin 81 mg tablet,delayed 162 mg PO DAILY #30 tabs 03/01/22 release atorvastatin 80 mg tablet 80 mg PO DAILY #30 tabs 03/01/22 calcitriol 0.5 mcg capsule 0.5 mcg PO 3XWK #12 caps 03/01/22 docusate sodium 100 mg capsule 200 mg PO DAILY #60 caps 03/01/22 (Colace) glucosamine [id number] 1 tab PO DAILY #30 tabs 03/01/22 rhiannon 1,500 mg-400 unit-100 mg tablet (Glucosamine Daily Complex) Results & Data (ED) Vital Signs Vital Signs - 24 hr 06/24/22 17:00 06/24/22 17:24 06/24/22 17:30 Temperature 36.7 C Temperature Source Oral Pulse Rate 115 H 112 H 118 H Pulse Rate from SpO2 Sensor Pulse Rhythm Irregular Pulse Strength Normal Respiratory Rate 22 25 H 21 Respiratory Effort / Characteristics Non-Labored Spontaneous Respiratory Depth Normal Respiratory Pattern Regular Blood Pressure 83/61 L Blood Pressure Mean 68 Blood Pressure Position Sitting Pulse Oximetry 98 Oxygen Delivery Method Nasal Cannula Oxygen Flow Rate 2 Sepsis Recent Fever Within 48 Hours No Sepsis New/Unexplained Change in Mental Status Yes Sepsis Action Taken by Nursing Physician Notified 06/24/22 17:31 06/24/22 17:31 06/24/22 17:40 Temperature Temperature Source Pulse Rate 130 H 118 H Pulse Rate from SpO2 Sensor Pulse Rhythm Pulse Strength Respiratory Rate 15 23 Respiratory Effort / Characteristics Respiratory Depth Respiratory Pattern Blood Pressure 76/45 L Blood Pressure Mean 55 Blood Pressure Position Pulse Oximetry Oxygen Delivery Method Oxygen Flow Rate Sepsis Recent Fever Within 48 Hours Sepsis New/Unexplained Change in Mental Status Sepsis Action Taken by Nursing 06/24/22 17:50 06/24/22 18:00 06/24/22 18:10 Temperature Temperature Source Pulse Rate 112 H 119 H 118 H Pulse Rate from SpO2 Sensor Pulse Rhythm Pulse Strength Respiratory Rate 23 26 H 20 Respiratory Effort / Characteristics Respiratory Depth Respiratory Pattern Blood Pressure Blood Pressure Mean Blood Pressure Position Pulse Oximetry Oxygen Delivery Method Oxygen Flow Rate Sepsis Recent Fever Within 48 Hours Sepsis New/Unexplained Change in Mental Status Sepsis Action Taken by Nursing 06/24/22 18:20 06/24/22 18:30 06/24/22 18:40 Temperature Temperature Source Pulse Rate 107 H 120 H 116 H Pulse Rate from SpO2 Sensor Pulse Rhythm Pulse Strength Respiratory Rate 23 24 25 H Respiratory Effort / Characteristics Respiratory Depth Respiratory Pattern Blood Pressure Blood Pressure Mean Blood Pressure Position Pulse Oximetry Oxygen Delivery Method Oxygen Flow Rate Sepsis Recent Fever Within 48 Hours Sepsis New/Unexplained Change in Mental Status Sepsis Action Taken by Nursing 06/24/22 18:50 06/24/22 19:00 06/24/22 19:00 Temperature Temperature Source Pulse Rate 114 H 114 H Pulse Rate from SpO2 Sensor Pulse Rhythm Pulse Strength Respiratory Rate 24 13 Respiratory Effort / Characteristics Respiratory Depth Respiratory Pattern Blood Pressure 66/42 L Blood Pressure Mean 50 Blood Pressure Position Pulse Oximetry Oxygen Delivery Method Oxygen Flow Rate Sepsis Recent Fever Within 48 Hours Sepsis New/Unexplained Change in Mental Status Sepsis Action Taken by Nursing 06/24/22 19:02 06/24/22 19:02 06/24/22 19:05 Temperature Temperature Source Pulse Rate 109 H 113 H Pulse Rate from SpO2 Sensor Pulse Rhythm Pulse Strength Respiratory Rate 23 21 Respiratory Effort / Characteristics Respiratory Depth Respiratory Pattern Blood Pressure 60/40 L Blood Pressure Mean 46 Blood Pressure Position Pulse Oximetry Oxygen Delivery Method Oxygen Flow Rate Sepsis Recent Fever Within 48 Hours Sepsis New/Unexplained Change in Mental Status Sepsis Action Taken by Nursing 06/24/22 19:05 06/24/22 19:07 06/24/22 19:10 Temperature Temperature Source Pulse Rate 107 H 104 H Pulse Rate from SpO2 Sensor Pulse Rhythm Pulse Strength Respiratory Rate 20 Respiratory Effort / Characteristics Respiratory Depth Respiratory Pattern Blood Pressure 45/29 L Blood Pressure Mean 34 Blood Pressure Position Pulse Oximetry Oxygen Delivery Method Oxygen Flow Rate Sepsis Recent Fever Within 48 Hours Sepsis New/Unexplained Change in Mental Status Sepsis Action Taken by Nursing 06/24/22 19:16 06/24/22 19:16 06/24/22 19:20 Temperature Temperature Source Pulse Rate 108 H 105 H Pulse Rate from SpO2 Sensor Pulse Rhythm Pulse Strength Respiratory Rate 19 23 Respiratory Effort / Characteristics Respiratory Depth Respiratory Pattern Blood Pressure 64/31 L Blood Pressure Mean 42 Blood Pressure Position Pulse Oximetry Oxygen Delivery Method Oxygen Flow Rate Sepsis Recent Fever Within 48 Hours Sepsis New/Unexplained Change in Mental Status Sepsis Action Taken by Nursing 06/24/22 19:30 06/24/22 19:00 06/24/22 19:40 Temperature Temperature Source Pulse Rate 112 H 111 H Pulse Rate from SpO2 Sensor 103 H Pulse Rhythm Pulse Strength Respiratory Rate 22 23 Respiratory Effort / Characteristics Non-Labored Respiratory Depth Normal Respiratory Pattern Blood Pressure 84/52 L Blood Pressure Mean 62 Blood Pressure Position Pulse Oximetry 99 Oxygen Delivery Method Oxygen Flow Rate Sepsis Recent Fever Within 48 Hours Sepsis New/Unexplained Change in Mental Status Sepsis Action Taken by Nursing 06/24/22 19:45 06/24/22 19:45 06/24/22 19:50 Temperature Temperature Source Pulse Rate 118 H 107 H Pulse Rate from SpO2 Sensor 123 H 108 H Pulse Rhythm Pulse Strength Respiratory Rate 20 25 H Respiratory Effort / Characteristics Respiratory Depth Respiratory Pattern Blood Pressure 77/53 L Blood Pressure Mean 61 Blood Pressure Position Pulse Oximetry 98 97 Oxygen Delivery Method Oxygen Flow Rate Sepsis Recent Fever Within 48 Hours Sepsis New/Unexplained Change in Mental Status Sepsis Action Taken by Nursing 06/24/22 20:00 Temperature Temperature Source Pulse Rate 105 H Pulse Rate from SpO2 Sensor Pulse Rhythm Pulse Strength Respiratory Rate 27 H Respiratory Effort / Characteristics Respiratory Depth Respiratory Pattern Blood Pressure Blood Pressure Mean Blood Pressure Position Pulse Oximetry Oxygen Delivery Method Oxygen Flow Rate Sepsis Recent Fever Within 48 Hours Sepsis New/Unexplained Change in Mental Status Sepsis Action Taken by Nursing Laboratory Data 06/24/22 17:12 06/24/22 17:12 Lab Results 06/24/22 06/24/22 06/24/22 Range/Units 17:12 17:12 17:12 WBC 9.66 (4.8-10.8) K/ul RBC 3.54 L (4.20-5.40) M/uL Hgb 11.8 L (12.0-16.0) g/dl Hct 37.0 (37.0-47.0) % MCV 104.5 H (80.0-100.0) fL MCH 33.3 (25.0-34.0) pg MCHC 31.9 L (32.0-36.0) g/dL RDW Std Deviation 65.3 H (36.4-46.3) fL RDW Coeff of Edin 17.0 H (11.5-14.5) % Plt Count 182 (130-400) K/uL MPV 11.8 (9.4-12.4) fL Immature Gran % (Auto) 0.9 % Neut % (Auto) 89.2 % Lymph % (Auto) 3.3 % [place] % (Auto) 5.9 % Eos % (Auto) 0.3 % Baso % (Auto) 0.4 % Neut # (Auto) 8.61 H (1.40-6.50) K/uL Lymph # (Auto) 0.32 L (1.2-3.4) K/uL [place] # (Auto) 0.57 (0.11-0.59) K/uL Eos # (Auto) 0.03 (0-0.50) K/uL Baso # (Auto) 0.04 (0-0.2) K/uL Immature Gran # (Auto) 0.09 (0.01-0.20) K/uL Absolute Nucleated RBC 0.07 (0-0.12) K/uL Nucleated RBC % (auto) 0.7 % PT 11.4 (9.0-12.0) Seconds INR 1.1 (0.9-1.1) APTT 24.4 (21.0-31.0) Seconds PTT Ratio 0.9 Sodium (136-145) mmol/L Potassium (3.5-5.1) mmol/L Chloride (98-107) mmol/L Carbon Dioxide (21-32) mmol/L Anion Gap (3-11) BUN (6-23) mg/dl Creatinine (0.6-1.2) mg/dl Est Cr Clr Drug Dosing ml/min Est GFR ( Amer) ml/min Est GFR (Non-Af Amer) ml/min BUN/Creatinine Ratio (10-20) Glucose (70-99(Fasting)) mg/dl Calcium (8.5-10.1) mg/dl Magnesium (1.7-2.4) mg/dl Total Bilirubin (0.2-1.0) mg/dl AST (13-39) U/L ALT (7-52) U/L Alkaline Phosphatase (34-104) U/L Troponin I High Sens (0-14) pg/ml Total Protein (6.0-8.3) gm/dl Albumin (3.4-5.0) gm/dl Globulin (2.5-4.0) gm/dl Albumin/Globulin Ratio (0.9-2) Urine Color Urine Appearance (Clear) Urine pH (4.5-7.5) Ur Specific [place] (1.000-1.030) Urine Protein (Negative) Urine Glucose (UA) (Negative) Urine Ketones (Negative) Urine Blood (Negative) Urine Nitrite (Negative) Urine Bilirubin (Negative) Urine Urobilinogen (Negative) Ur Leukocyte Esterase (Negative) Urine WBC (Auto) (0-5) /hpf Urine RBC (Auto) (0-4) /hpf U Hyaline Cast (Auto) (0-5) /lpf U Epithel Cells (Auto) (0-5) /lpf Urine Bacteria (Auto) (Negative) SARS-CoV-2, RNA, NAAT (NEGATIVE) Blood Type A Positive Antibody Screen NEGATIVE 06/24/22 06/24/22 06/24/22 Range/Units 17:12 17:40 18:49 WBC (4.8-10.8) K/ul RBC (4.20-5.40) M/uL Hgb (12.0-16.0) g/dl Hct (37.0-47.0) % MCV (80.0-100.0) fL MCH (25.0-34.0) pg MCHC (32.0-36.0) g/dL RDW Std Deviation (36.4-46.3) fL RDW Coeff of Edin (11.5-14.5) % Plt Count (130-400) K/uL MPV (9.4-12.4) fL Immature Gran % (Auto) % Neut % (Auto) % Lymph % (Auto) % [place] % (Auto) % Eos % (Auto) % Baso % (Auto) % Neut # (Auto) (1.40-6.50) K/uL Lymph # (Auto) (1.2-3.4) K/uL [place] # (Auto) (0.11-0.59) K/uL Eos # (Auto) (0-0.50) K/uL Baso # (Auto) (0-0.2) K/uL Immature Gran # (Auto) (0.01-0.20) K/uL Absolute Nucleated RBC (0-0.12) K/uL Nucleated RBC % (auto) % PT (9.0-12.0) Seconds INR (0.9-1.1) APTT (21.0-31.0) Seconds PTT Ratio Sodium 139 (136-145) mmol/L Potassium 4.0 (3.5-5.1) mmol/L Chloride 98 (98-107) mmol/L Carbon Dioxide 32 (21-32) mmol/L Anion Gap 9 (3-11) BUN 14 (6-23) mg/dl Creatinine 2.33 H (0.6-1.2) mg/dl Est Cr Clr Drug Dosing 20.8 ml/min Est GFR ( Amer) 22.5 ml/min Est GFR (Non-Af Amer) 19.4 ml/min BUN/Creatinine Ratio 6.0 L (10-20) Glucose 175 H (70-99(Fasting)) mg/dl Calcium 8.6 (8.5-10.1) mg/dl Magnesium 1.7 (1.7-2.4) mg/dl Total Bilirubin 0.7 (0.2-1.0) mg/dl AST 16 (13-39) U/L ALT 10 (7-52) U/L Alkaline Phosphatase 77 (34-104) U/L Troponin I High Sens 128.3 H* (0-14) pg/ml Total Protein 5.4 L (6.0-8.3) gm/dl Albumin 2.7 L (3.4-5.0) gm/dl Globulin 2.7 (2.5-4.0) gm/dl Albumin/Globulin Ratio 1.0 (0.9-2) Urine Color [place] Urine Appearance Turbid A (Clear) Urine pH 8.0 H (4.5-7.5) Ur Specific [place] 1.017 (1.000-1.030) Urine Protein 3+ H (Negative) Urine Glucose (UA) Negative (Negative) Urine Ketones Negative (Negative) Urine Blood 3+ H (Negative) Urine Nitrite Positive A (Negative) Urine Bilirubin Negative (Negative) Urine Urobilinogen Negative (Negative) Ur Leukocyte Esterase 3+ H (Negative) Urine WBC (Auto) >30 H (0-5) /hpf Urine RBC (Auto) 0-4 (0-4) /hpf U Hyaline Cast (Auto) 5-10 H (0-5) /lpf U Epithel Cells (Auto) 10-20 H (0-5) /lpf Urine Bacteria (Auto) 1+ H (Negative) SARS-CoV-2, RNA, NAAT POSITIVE A* (NEGATIVE) Blood Type Antibody Screen Administered Medications Calcitriol (Calcitriol 0.25 Mcg Capsule) 0.5 mcg PO MoWeFr@1600 [facility] Stop: 07/24/22 21:50 Last Admin: 06/24/22 23:20 Dose: Not Given Documented By: RH Digoxin (Digoxin 0.125 Mg Tab) 0.125 mg PO MoWeFr@1600 [facility] Stop: 07/24/22 21:50 Last Admin: 06/24/22 23:05 Dose: 0.125 mg Documented By: RH Heparin Sodium (Porcine) (Heparin Sod 5,000 Unit/0.5 Ml Vial) 5,000 units SQ Q8 [facility] Stop: 07/24/22 21:59 Last Admin: 06/24/22 23:19 Dose: Not Given Documented By: RH Insulin Aspart (Insulin Aspart Per Unit) 0 units SC ACHS [facility] Stop: 07/24/22 21:50 Last Admin: 06/24/22 22:20 Dose: Not Given Documented By: NABIL Levetiracetam (Levetiracetam 500 Mg Tab) 500 mg PO MoWeFr@0600,1700,2100 [facility] Stop: 07/24/22 21:50 Last Admin: 06/24/22 23:05 Dose: 500 mg Documented By: NESSA Discontinued Medications Ceftriaxone Sodium (Rocephin) 2,000 mg in 70 mls @ 140 mls/hr IV NOW STA Stop: 06/24/22 18:51 Last Admin: 06/24/22 22:54 Dose: Not Given Documented By: NESSA Sodium Chloride (Nss 1000ml) 250 mls @ 999 mls/hr IV .Q16M ONE Stop: 06/24/22 19:22 Last Infusion: 06/24/22 19:26 Dose: 0 mls/hr Documented By: Admin: 06/24/22 19:10 Dose: 999 mls/hr Documented By: DANIEL Cefepime HCl (Maxipime) 2,000 mg in 20 mls @ 5 mls/min IV NOW STA; Protocol Stop: 06/24/22 19:24 Last Admin: 06/25/22 00:07 Dose: 5 mls/min Documented By: NESSA Magnesium Sulfate/Dextrose (Magnesium Sulfate / D5w) 1 gm in 100 mls @ 50 mls/hr IV Q2H [facility] Stop: 06/24/22 23:29 Last Admin: 06/24/22 23:46 Dose: 50 mls/hr Documented By: Infusion: 06/24/22 23:46 Dose: 50 mls/hr Documented By: Admin: 06/24/22 22:19 Dose: 50 mls/hr Documented By: NABIL Dexamethasone 4 mg/ Syringe 1 mls @ 1 mls/min IV ONE ONE Stop: 06/24/22 19:23 Last Admin: 06/24/22 20:00 Dose: 1 mls/min Documented By: NABIL Albumin Human (Albumin 25% 100 Ml) 25 gm in 100 mls @ 50 mls/hr IV ONE ONE Stop: 06/24/22 21:23 Last Infusion: 06/24/22 23:07 Dose: 0 mls/hr Documented By: Admin: 06/24/22 21:00 Dose: 50 mls/hr Documented By: NABIL Ioversol (Optiray 320 500ml) 118 ml IV ONCE ONE Stop: 06/24/22 17:07 Last Admin: 06/24/22 17:07 Dose: 118 ml Documented By: [facility] Imaging Data Radiologist's Impression: Head CT 06/24/22 16:[address] DOSE: HISTORY: neuro deficit, acute stroke suspected TECHNIQUE: Multiaxial CT images of the head were performed without the use of intravenous contrast. Automated exposure control was utilized for this study. A dose lowering technique was utilized adhering to the principles of ALARA. Comparison: Head CT 02/25/2022. Findings: Small fluid level within the right maxillary sinus and left sphenoid sinus. Trace bilateral mastoid effusions. The calvarium and skull base are intact. There is no mass, hematoma, midline shift, acute infarct. White matter hypodensity is nonspecific but suggestive of microvascular ischemic change. The ventricles and sulci demonstrate mild age-related involutional changes. No change in the old scattered small infarcts within the supratentorial and infra tentorial brain. Impression: No significant change compared to the prior study. No acute intracranial abnormality. Multiple old infarcts again noted. ACT 112: Negative or not required by law. Electronically signed by: Javon Tariq M.D. 06/24/2022 5:06 PM Head CTA 06/24/22 16:49 HEAD & NECK CTA HISTORY: neuro deficit, acute stroke suspected TECHNIQUE: Multiaxial CT images of the head were performed following the intravenous administration of contrast to evaluate the major cerebral vessels. Multiaxial CT images of the neck were also performed following the intravenous administration of contrast to evaluate the major cervical vessels. Maximum intensity projection images were also obtained. A dose lowering technique was utilized adhering to the principles of ALARA. COMPARISON: Head CT 06/24/2022. Brain MRI 06/24/2016. Carotid Doppler 06/24/2016. Head and neck CTA 10/10/2019. FINDINGS: There is no mass, hematoma, midline shift, or acute infarct. Severely hyp oplastic distal right vertebral artery, unchanged. The distal left vertebral artery is patent. Hypoplastic basilar artery remains patent and is likely due to the bilateral posterior circulations. Moderate calcified plaque within the bilateral carotid siphons resulting in mild right and moderate left supraclinoid stenosis. This remains unchanged. No significant stenosis, occlusion, or aneurys m within the bilateral ACAs, MCAs, certified endoscopy technician. The major dural venous sinuses appear patent. The aortic arch and proximal great vessels are widely patent. Calcified plaque at the origin of the bilateral vertebral arteries results in moderate stenosis. This remains unchanged. The remaining bilateral vertebral arteries are patent. Moderate to severe calcified plaque within the bilateral carotid bifurcations. This results in up to 50% narrowing within the proximal right internal carotid artery and up to 75% narrowing within the proximal left internal carotid artery. There is up to 40% narrowing within the mid to distal left common carotid artery due to the calcified plaque. Overall, this is similar to the prior study. IMPRESSION: 1. Mild right and moderate left supraclinoid ICA stenosis, unchanged. 2. No significant stenosis, occlusion, aneurysm within the bilateral ACAs, MCAs, or certified endoscopy technician. 3. No significant change in the 50% stenosis within the proximal right internal carotid artery and 75% stenosis within the proximal left internal carotid artery. ACT 112: Negative or not required by law. Electronically signed by: Javon Tariq M.D. 06/24/2022 5:27 PM Neck CTA 06/24/22 16:49 HEAD & NECK CTA HISTORY: neuro deficit, acute stroke suspected TECHNIQUE: Multiaxial CT images of the head were performed following the intravenous administration of contrast to evaluate the major cerebral vessels. Multiaxial CT images of the neck were also performed following the intravenous administration of contrast to evaluate the major cervical vessels. Maximum intensity projection images were also obtained. A dose lowering technique was utilized adhering to the principles of ALARA. COMPARISON: Head CT 06/24/2022. Brain MRI 06/24/2016. Carotid Doppler 06/24/2016. Head and neck CTA 10/10/2019. FINDINGS: There is no mass, hematoma, midline shift, or acute infarct. Severely hypoplastic distal right vertebral artery, unchanged. The distal left vertebral artery is patent. Hypoplastic basilar artery remains patent and is likely due to the bilateral posterior circulations. Moderate calcified plaque within the bilateral carotid siphons resulting in mild right and moderate left supraclinoid stenosis. This remains unchanged. No significant stenosis, occlusion, or aneurysm within the bilateral ACAs, MCAs, certified endoscopy technician. The major dural venous sinuses appear patent. The aortic arch and proximal great vessels are widely patent. Calcified plaque at the origin of the bilateral vertebral arteries results in moderate stenosis. This remains unchanged. The remaining bilateral vertebral arteries are patent. Moderate to severe calcified plaque within the bilateral carotid bifurcations. This results in up to 50% narrowing within the proximal right internal carotid artery and up to 75% narrowing within the proximal left internal carotid artery. There is up to 40% narrowing within the mid to distal left common carotid artery due to the calcified plaque. Overall, this is similar to the prior study. IMPRESSION: 1. Mild right and moderate left supraclinoid ICA stenosis, unchanged. 2. No significant stenosis, occlusion, aneurysm within the bilateral ACAs, MCAs, or certified endoscopy technician. 3. No significant change in the 50% stenosis within the proximal right internal carotid artery and 75% stenosis within the proximal left internal carotid arter y. ACT 112: Negative or not required by law. Electronically signed by: Javon Tariq M.D. 06/24/2022 5:27 PM Chest X-Ray 06/24/22 17:29 XR chest 1V portable HISTORY: stroke like symptoms, syncope COMPARISON: Chest 05/29/2022. FINDINGS: Rotated study. No pneumothorax. The cardiac silhouette remains moderately enlarged. Mild interstitial pulmonary edema and a trace right pleural effusion. Calcifications within the aortic knob. IMPRESSION: Cardiomegaly with mild interstitial pulmonary edema and a trace right pleural ef fusion. ACT 112: Negative or not required by law. Electronically signed by: Javon Tariq M.D. 06/24/2022 6:30 PM Discharge Plan Visit Data Chief Complaint: Stroke Alert Stated Complaint: STROKE ALERT ED Provider: Brandan Daniel Discharge Problem: Syncope and collapse, End stage renal disease, Stroke-like symptoms, Elevated troponin, UTI (urinary tract infection) Patient Disposition: Admitted As Inpatient Discharge Instructions Interventions: ED Discharge Assessment Last Done: 06/24/22 21:30
[2022-06-24 20:46] LABS: iSTAT Creatinine 1.8 mg/dl (0.6-1.3); iSTAT Hemoglobin 17.7 g/dl (12.0-16.0); iSTAT Ionized Calcium 1.08 mmol/l (1.12-1.32); iSTAT Potassium 3.1 mmol/L (3.3-5.0)
[2022-06-24] MEDS ORDERED: GLUCAGON FOR INJ 1 MG VIAL SQ PRN (21:51)
[2022-06-24] MEDS ORDERED: DEXTROSE 50% 50 ML SYRINGE IV PRN (21:51)
[2022-06-24] MEDS ORDERED: GLUCOSE 10 TAB/TUBE PO PRN (21:51)
[2022-06-24] MEDS ORDERED: CARBOHYDRATES FOR HYPOGLYCEMIA PO PRN (21:51)
[2022-06-24] MEDS ORDERED: PROMETHAZINE HCL 6.25 MG in SODIUM CHLORIDE 0.9% 50 ML IV PRN (21:51)
[2022-06-24] MEDS ORDERED: GLUCOSE 40% GEL 15 GM TUBE PO PRN (21:51)
[2022-06-24] MEDS ORDERED: HEPARIN SOD 5,000 UNIT/0.5 ML VIAL SQ SCH (22:00)
[2022-06-24] MEDS: MAGNESIUM SULFATE / D5W 1 GM/100 ML BAG IV SCH ×2 (22:19→23:46)
[2022-06-24] MEDS: INSULIN ASPART PER UNIT CHARGE SC SCH (22:20)
[2022-06-24] MEDS: DIGOXIN 0.125 MG TAB PO SCH (23:05)
[2022-06-24] MEDS: levETIRAcetam 500 MG TAB PO SCH (23:05)
[2022-06-24] MEDS: CALCITRIOL 0.25 MCG CAPSULE PO SCH (23:20)
[2022-06-25] MEDS ORDERED: ALBUMIN 25% 100 mL 25 GM/100 ML VIAL IV ONE (01:51)
[2022-06-25] MEDS: MIDODRINE HCL 2.5 MG TAB PO SCH ×4 (02:10→18:31)
[2022-06-25 06:50] LABS: Basophils # (auto) 0.02 K/uL (0-0.2); Basophils % (auto) 0.2 %; Hematocrit (blood only) 28.1 % (37.0-47.0); Hemoglobin 9.1 g/dl (12.0-16.0); Immature Granulocytes # (auto) 0.05 K/uL (0.01-0.20); Immature Granulocytes % (auto) 0.6 %; Lymphocytes # (auto) 0.66 K/uL (1.2-3.4); Lymphocytes % (auto) 8.1 %; Mean Corpuscular Hemoglobin 33.2 pg (25.0-34.0); Mean Corpuscular Hgb Conc 32.4 g/dL (32.0-36.0); Mean Corpuscular Volume 102.6 fL (80.0-100.0); Mean Platelet Volume 11.8 fL (9.4-12.4); Monocytes # (auto) 0.29 K/uL (0.11-0.59); Monocytes % (auto) 3.6 %; Neutrophils # (auto) 7.09 K/uL (1.40-6.50); Neutrophils % (auto) 87.5 %; Nucleated RBC # (auto) 0.02 K/uL (0-0.12); Nucleated RBC % (auto) 0.2 %; Platelet Count 171 K/uL (130-400); RDW Coefficient of Variation 17.1 % (11.5-14.5); RDW Standard Deviation 63.6 fL (36.4-46.3); Red Blood Count 2.74 M/uL (4.20-5.40); White Blood Count 8.11 K/ul (4.8-10.8)
[2022-06-25 07:23] LABS: BUN Creatinine Ratio 8.9 (10-20); Calcium 8.9 mg/dl (8.5-10.1); Creatinine Clr Calc Pharmacy 15.4 ml/min; Est GFR (African American) 17.2 ml/min; Est GFR (Non-African American) 14.8 ml/min; Potassium 4.5 mmol/L (3.5-5.1)
[2022-06-25] MEDS ORDERED: NUTRITIONAL SUPPLEMENTS PO SCH (09:00)
[2022-06-25] MEDS: INSULIN ASPART PER UNIT CHARGE SC SCH ×4 (09:07→20:37)
[2022-06-25] MEDS: ATORVASTATIN 40 MG TAB PO SCH (09:08)
[2022-06-25] MEDS: levETIRAcetam 500 MG TAB PO SCH ×2 (09:08→20:30)
[2022-06-25] MEDS: allopurinoL 300 MG TAB PO SCH (09:09)
[2022-06-25] MEDS: GLUCOSAMINE SULFATE 500 MG CAP PO SCH (09:10)
[2022-06-25] MEDS: DOCUSATE SODIUM 100 MG CAP PO SCH (09:11)
[2022-06-25] MEDS: ASPIRIN 81 MG ECTAB PO SCH (09:11)
[2022-06-25] MEDS: METOPROLOL SUCC 25MG EXT REL TAB PO SCH (09:12)
--- NOTE | 2022-06-25 09:51 | Electrocardiogram Report ---
Test Reason : Blood Pressure : / mmHG Vent. Rate : 121 BPM Atrial Rate : 056 BPM P-R Int : 000 ms QRS Dur : 080 ms QT Int : 326 ms P-R-T Axes : 000 -75 268 degrees QTc Int : 462 ms Poor data quality, interpretation may be adversely affected Atrial fibrillation with rapid ventricular response Left axis deviation Septal infarct (cited on or before 21-FEB-2022) Abnormal ECG When compared with ECG of 04-JUN-2022 12:38, ST more depressed Inferior leads Confirmed by Nikko Diallo ([id number]) on 06/25/2022 9:51:14 AM Referred By: REFERRED SELF Confirmed By:Nikko Diallo
--- NOTE | 2022-06-25 10:42 | Nephrology Consultation ---
Date of Consultation June 25, 2022 Assessment & Plan (1) End stage renal disease: Patient with ESRD on dialysis Monday. Her last outpatient dialysis was yesterday on 06/24/2022. Patient admitted after episode of unresponsiveness few hours after returning from dialysis. Electrolytes are stable and no signs of volume overload. No indication for dialysis. Next dialysis will be on Monday. (2) Acute on chronic respiratory failure with hypoxemia: Patient is on oxygen 3 L nasal cannula. Monitor and titrate oxygen for FiO2 above 92. Continue work-up for possible infectious causes of her shock History of Present Illness Reason for Consultation: ESRD Requesting Physician: Jaylen Rudolph MD Attending Physician: Jaylen Rudolph MD History of Present Illness This is a 76-year-old female with history of ESRD on dialysis Monday at [facility] and resident of [facility] was admitted with episode of unresponsiveness found to be hypotensive with systolic in the 70s and tachycardic in the 130s. Patient had her regular dialysis outpatient and had return to the half-way before the episode of unresponsiveness. She received some IV fluids. Blood pressure has improved to 90s over mid 50s. She denies a ny shortness of breath. She reports being sedentary and in the bed most of the time. She admits she does not have a good life. But not ready for palliative care. Other past medical history includes chronic systolic heart failure (EF 40 to 45%, TTE 2021), CAD sp stenting, valvular heart disease (severe TR, mild /MR ), history of recurrent CVA, hyperlipidemia, atrial fibrillation off anticoagulation due to hx ICH and seizures, Allergies Allergy/AdvReac Type Severity Reaction Status Date / Time verapamil Allergy Unknown ON Verified 06/24/22 17:55 [facility] MED LIST lisinopril AdvReac Intermediate COUGH Verified 06/24/22 17:55 Home Medications Medication Instructions Recorded Confirmed Type lidocaine-prilocaine 2.5 %-2.5 % 1 applic topical 3XWK 02/25/22 06/24/22 History topical cream allopurinol 300 mg tablet 450 mg PO DAILY #45 tabs 03/01/22 06/24/22 Rx aspirin 81 mg tablet,delayed 162 mg PO DAILY #30 tabs 03/01/22 06/24/22 Rx release atorvastatin 80 mg tablet 80 mg PO DAILY #30 tabs 03/01/22 06/24/22 Rx calcitriol 0.5 mcg capsule 0.5 mcg PO 3XWK #12 caps 03/01/22 06/24/22 Rx docusate sodium 100 mg capsule 200 mg PO DAILY #60 caps 03/01/22 06/24/22 Rx (Colace) glucosamine GLx-F0-Rqdkzhnxn 1 tab PO DAILY #30 tabs 03/01/22 06/24/22 Rx rhiannon 1,500 mg-400 unit-100 mg tablet (Glucosamine Daily Complex) digoxin 125 mcg (0.125 mg) tablet 125 mcg PO 3XWK 06/24/22 06/24/22 History levetiracetam 500 mg tablet 500 mg PO 3XWK 06/24/22 06/24/22 History levetiracetam 500 mg tablet 500 mg PO 4XWK 06/24/22 06/24/22 History metoprolol succinate 25 mg 25 mg PO 4XWK 06/24/22 06/24/22 History tablet,extended release 24 hr nutritional supplements 1 ea PO DAILY 06/24/22 06/24/22 History Patient History Medical History Acromioclavicular joint separation Atrial fibrillation CAD (coronary artery disease) "LEONA to LAD cath 2014 - moderate non obstructive disease" Carotid stenosis, bilateral Cerebral amyloid angiopathy Clavicle fracture Closed left fibular fracture Contraindication to anticoagulation therapy Depression DM type 2 (diabetes mellitus, type 2) Dyslipidemia End stage renal disease Falls frequently Fracture, humerus GERD (gastroesophageal reflux disease) HTN (hypertension) IBS (irritable bowel syndrome) Nontraumatic intracerebral hemorrhage Palliative care encounter Pressure injury of back, unstageable Seizure disorder Surgical History AV fistula H/O sinus surgery History of total left knee replacement S/P cholecystectomy Social History Smoking Status: Never smoker Second Hand Exposure: Yes; Hx Alcohol Use: No Hx Substance Use: No Preferred Language: Arabic Communication Ability: Effective Crystal Grinder Required: No Beliefs That Will Affect Care: None marital status: / Current Living Situation: [facility] Current Living Situation Comment: lives alone Other Information That Helps Us Care for You: No Feels Safe at Home: Yes Safety Concerns: Feels Safe At This Time Assistive Devices: Denture - Upper, Denture - Lower, Glasses, Oxygen - Continuous and Wheelchair Review of Systems Review of Systems: All other systems were reviewed and negative except as noted in HPI Physical Exam Physical Exam: General exam: Appears comfortable, no acute distress HEENT: Pupils are equal and reactive to light Neck: No JVD, neck is supple trachea is midline Respiratory system: Clear breath sounds bilaterally. Gastrointestinal: Abdomen is soft, non distended, non tender, bowel sounds are present CVS: Regular rate and rhythm. No murmurs, rubs or gallops Musculoskeletal: No joint or muscle tenderness Extremities: Non tender, no edema, peripheral pulses are present Neuro: Oriented, no tremors, no focal neurological deficits Skin: No rashes Results & Data ([facility]) Vital Signs (Past 12 Hours) Vital Signs Temp Pulse Pulse Resp BP Pulse Ox O2 Del Method 06/25/22 07:54 36.9 C 85 18 91/55 L 99 Nasal Cannula 06/25/22 02:05 37.1 C 88 16 95/56 L 100 Nasal Cannula 06/24/22 23:05 104 H 06/24/22 23:00 105 H O2 Flow Rate 06/25/22 07:54 3.0 06/25/22 02:05 3 06/24/22 23:05 06/24/22 23:00 Laboratory Results 06/25/22 06:31 06/24/22 06/24/22 06/25/22 17:12 17:12 06:31 WBC 9.66 8.11 RBC 3.54 L 2.74 L MCV 104.5 H 102.6 H MCH 33.3 33.2 MCHC 31.9 L 32.4 RDW Std Deviation 65.3 H 63.6 H RDW Coeff of Edin 17.0 H 17.1 H Plt Count 182 171 MPV 11.8 11.8 Albumin 2.7 L
--- NOTE | 2022-06-25 13:30 | Hospitalist Progress Note ---
Date of Service June 25, 2022 Assessment & Plan (1) Unresponsiveness: Plan: Syncope secondary to Hypotension Multifactorial : Possible severe sepsis from complicated UTI Hypovolemia 06/25 awake, alert BP improving after IV fluids, antibiotics, Midodrine urine culture: pending blood culture: pending continue IV Cefepime, Midodrine next HD Monday Troponin elevation secondary to illness, rapid A-fib in the setting of kidney dysfunction Patient not on anticoagulation secondary to history ICH, history of cerebral amyloid angiopathy 06/25 Trop stable at 300s hx COPD/nocturnal hypoxemia/pulm hypertension, oxygenation stable hx chronic systolic heart failure, equivocal volume status given congestion and x-ray and low BP hx CAD sp stenting valvular heart disease (severe TR, mild /MR ) history of recurrent CVA hyperlipidemia on statin Rx 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 SCDs Re: Episodic thrombocytopenia Disposition pending Admission and Anticipated Discharge Date Admission Date: June 24, 2022 Subjective ff up for hypotension, etc seen resting in bed awake, oriented states she feels fine overall, just tired denies headache, dizziness, cough, dyspnea, chest pain, palpitations, abdominal pain, nausea/vomiting no other symptoms Review of Systems Review of Systems: all noted and negative except for above Physical Exam Physical Exam: General- oriented x 2, not in distress, speaks in sentences with no effort or accessory muscle use Eyes- anicteric Neck- no JVD Lungs- clear BS BL Heart- normal rate, regular rhythm; no murmurs Abdomen- normal bowel sounds, nondistended, soft, nontender Extremities- no pretibial edema, no calf tenderness Neuro- alert, oriented x 2; no gross focal neurologic deficits Skin- warm & dry Results & Data Results & Data ([facility]) Vital Signs (Past 12 Hours) Vital Signs Temp Pulse Resp BP Pulse Ox O2 Del Method O2 Flow Rate 06/25/22 12:13 36.5 C 81 17 89/55 L 100 Nasal Cannula 3.0 06/25/22 07:54 36.9 C 85 18 91/55 L 99 Nasal Cannula 3.0 06/25/22 02:05 37.1 C 88 16 95/56 L 100 Nasal Cannula 3 all noted and reviewed including below
[2022-06-25] MEDS: CEFEPIME 1,000 MG in SYRINGE 0 ML IV SCH (20:29)
[2022-06-26] MEDS: ACETAMINOPHEN 325 MG TAB PO PRN (00:18)
[2022-06-26] MEDS: ASPIRIN 81 MG ECTAB PO SCH (08:11)
[2022-06-26] MEDS: MIDODRINE HCL 2.5 MG TAB PO SCH ×3 (08:11→17:59)
[2022-06-26] MEDS: GLUCOSAMINE SULFATE 500 MG CAP PO SCH (08:11)
[2022-06-26] MEDS: levETIRAcetam 500 MG TAB PO SCH ×2 (08:11→20:11)
[2022-06-26] MEDS: DOCUSATE SODIUM 100 MG CAP PO SCH (08:12)
[2022-06-26] MEDS: ATORVASTATIN 40 MG TAB PO SCH (08:12)
[2022-06-26] MEDS: allopurinoL 300 MG TAB PO SCH (08:13)
[2022-06-26] MEDS: INSULIN ASPART PER UNIT CHARGE SC SCH ×4 (08:13→20:49)
--- NOTE | 2022-06-26 09:19 | Nephrology Progress Note ---
Date of Service June 26, 2022 Assessment & Plan (1) End stage renal disease: Plan: Patient with ESRD on dialysis Monday. Her last outpatient di alysis was yesterday on 06/24/2022. Patient admitted after episode of unresponsiveness few hours after returning from dialysis. Electrolytes are stable and no signs of volume overload. No indication for dialysis. Next dialysis will be on Monday. (2) Acute on chronic respiratory failure with hypoxemia: Plan: Patient is on oxygen 3 L nasal cannula. Monitor and titrate oxygen for FiO2 above 92. Continue work-up for possible infectious causes of her hypotension Admission and Anticipated Discharge Date Admission Date: June 24, 2022 Subjective Seen for ESRD. She feels better today. No shortness of breath. Blood pressure is still soft. Review of Systems Review of Systems: All other systems were reviewed and negative except as noted in HPI Physical Exam Physical Exam: General exam: Appears comfortable, no acute distress HEENT: Pupils are equal and reactive to light Neck: No JVD, neck is supple trachea is midline Respiratory system: Clear breath sounds bilaterally. Gastrointestinal: Abdomen is soft, non distended, non tender, bowel sounds are present CVS: Regular rate and rhythm. No murmurs, rubs or gallops Musculoskeletal: No joint or muscle tenderness Extremities: Non tender, no edema, peripheral pulses are present Neuro: Oriented, no tremors, no focal neurological deficits Skin: No rashes Results & Data ([facility]) Vital Signs (Past 12 Hours) Vital Signs Temp Pulse Pulse Resp BP Pulse Ox O2 Del Method 06/26/22 07:32 73 06/26/22 06:30 36.4 C L 73 16 91/53 L 98 Nasal Cannula 06/26/22 03:03 36.5 C 90 18 84/50 L 100 Nasal Cannula 06/25/22 23:00 84 06/26/22 00:05 36.3 C L 86 20 92/58 L 100 Nasal Cannula O2 Flow Rate 06/26/22 07:32 06/26/22 06:30 3 06/26/22 03:03 3 06/25/22 23:00 06/26/22 00:05 3 Laboratory Results 06/25/22 06:31
[2022-06-26] MEDS: METOPROLOL SUCC 25MG EXT REL TAB PO SCH (09:25)
--- NOTE | 2022-06-26 15:49 | Hospitalist Progress Note ---
Date of Service June 26, 2022 Assessment & Plan (1) Unresponsiveness: Plan: Syncope secondary to Hypotension Multifactorial : Hypovolemia Rule out adrenal insufficiency Possible sepsis, rule out bacteremia UTI ruled out 06/25 awake, alert BP improving after IV fluids, antibiotics, Midodrine urine culture: pending blood culture: pending continue IV Cefepime, Midodrine next HD Monday 06/26 Blood pressure still on the lower side Urine culture showing lactobacillus and Viviane Blood cultures: Negative so far x24 hours Continue IV cefepime day #2 Continue midodrine 5 mg p.o. 3 times daily Next HD tomorrow Check cortisol in a.m. 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 SCDs Re: Episodic thrombocytopenia Disposition pending PT/OT evaluation Admission and Anticipated Discharge Date Admission Date: June 24, 2022 Subjective Follow-up for syncope, hypotension, etc. Seen resting in bed, comfortable, in good spirits On 3 L of oxygen via nasal cannula States she feels fine today overall Denies dizziness, headache, chest pain, shortness of breath, cough, abdominal pain Appetite is fair No leg pain No other symptoms Review of Systems Review of Systems: all noted and negative except for above Physical Exam Physical Exam: General- oriented x 3, not in distress, speaks in sentences with no effort or accessory muscle use Eyes- anicteric Neck- no JVD Lungs- clear BS BL Heart- normal rate, regular rhythm; no murmurs Abdomen- normal bowel sounds, nondistended, soft, nontender Extremities- no pretibial edema, no calf tenderness Neuro- alert, oriented x 3; no gross focal neurologic deficits Skin- warm & dry Results & Data Results & Data ([facility]) Vital Signs (Past 12 Hours) Vital Signs Temp Pulse Pulse Resp BP Pulse Ox O2 Del Method 06/26/22 11:24 36.4 C L 55 L 18 113/70 100 Nasal Cannula 06/26/22 08:04 Nasal Cannula 06/26/22 07:32 73 06/26/22 06:30 36.4 C L 73 16 91/53 L 98 Nasal Cannula O2 Flow Rate 06/26/22 11:24 3.0 06/26/22 08:04 3 06/26/22 07:32 06/26/22 06:30 3 all noted and reviewed including below
--- NOTE | 2022-06-26 17:59 | XRay Report ---
XR chest 1V portable HISTORY: Cough. r/o aspiration COMPARISON: Chest 06/24/2022. FINDINGS: No pneumothorax. The cardiac silhouette remains enlarged. Mild pulmonary vascular congestio n has improved. Calcifications again noted within the aortic knob. There are patchy bibasilar densiti es again noted. This favors atelectasis. A superimposed pneumonia could also have a similar appearanc e. IMPRESSION: 1. Interval improvement in the pulmonary vascular congestion. 2. Stable cardiomegaly. 3. Patchy bibasilar densities are nonspecific but favor dependent change/atelectasis. A superimposed pneumonia could also have a similar appearance. ACT 112: Negative or not required by law. Electronically signed by: Javon Tariq M.D. 06/26/2022 5:58 PM
--- NOTE | 2022-06-26 18:02 | XRay Report ---
KUB HISTORY: nausea/vomiting COMPARISON: KUB 07/12/2016. Abdomen and pelvis CT 02/25/2022. FINDINGS: The bowel gas pattern is unremarkable. There are no dilated loops of small bowel to suggest an obstruction. No renal calculi. No ureteral calculi. Calcifications in the deep pelvis likely rep resent phleboliths. No pneumoperitoneum or pneumatosis. The cardiac silhouette remains enlarged. Prio r cholecystectomy. Vascular calcifications are noted. IMPRESSION: No evidence for a bowel obstruction. ACT 112: Negative or not required by law. Electronically signed by: Javon Tariq M.D. 06/26/2022 6:01 PM
[2022-06-26 18:18] LABS: Basophils # (auto) 0.08 K/uL (0-0.2); Basophils % (auto) 0.8 %; Eosinophils # (auto) 0.61 K/uL (0-0.50); Eosinophils % (auto) 6.3 %; Hematocrit (blood only) 30.6 % (37.0-47.0); Hemoglobin 9.8 g/dl (12.0-16.0); Immature Granulocytes # (auto) 0.14 K/uL (0.01-0.20); Immature Granulocytes % (auto) 1.4 %; Lymphocytes # (auto) 1.86 K/uL (1.2-3.4); Lymphocytes % (auto) 19.2 %; Mean Corpuscular Hemoglobin 33.6 pg (25.0-34.0); Mean Corpuscular Volume 104.8 fL (80.0-100.0); Mean Platelet Volume 12.2 fL (9.4-12.4); Monocytes # (auto) 0.76 K/uL (0.11-0.59); Monocytes % (auto) 7.9 %; Neutrophils # (auto) 6.22 K/uL (1.40-6.50); Neutrophils % (auto) 64.4 %; Nucleated RBC # (auto) 0.07 K/uL (0-0.12); Nucleated RBC % (auto) 0.7 %; Platelet Count 239 K/uL (130-400); RDW Coefficient of Variation 16.8 % (11.5-14.5); RDW Standard Deviation 64.7 fL (36.4-46.3); Red Blood Count 2.92 M/uL (4.20-5.40); White Blood Count 9.67 K/ul (4.8-10.8)
[2022-06-26 18:37] LABS: BUN Creatinine Ratio 10.6 (10-20); Calcium 9.3 mg/dl (8.5-10.1); Creatinine Clr Calc Pharmacy 10.3 ml/min; Est GFR (African American) 10.3 ml/min; Est GFR (Non-African American) 8.9 ml/min; Potassium 4.6 mmol/L (3.5-5.1)
[2022-06-26] MEDS: CEFEPIME 1,000 MG in SYRINGE 0 ML IV SCH (21:05)
[2022-06-27] MEDS: levETIRAcetam 500 MG TAB PO SCH ×3 (05:45→20:43)
[2022-06-27] MEDS ORDERED: EPOETIN ALFA 10,000 UNITS/ML VIAL IV ONE (07:00)
[2022-06-27] MEDS ORDERED: HEPARIN SOD (PORCINE) 1000 UNIT/ML IV ONE (07:00)
[2022-06-27] MEDS ORDERED: SODIUM CHLORIDE 0.9% 1000ML 1,000 ML IV PRN (07:00)
[2022-06-27 08:12] LABS: Adenovirus F 40/41 PCR Not Detected (NotDetected); Astrovirus PCR Not Detected (NotDetected); Campylobacter PCR Not Detected (NotDetected); Cryptosporidium PCR Not Detected (NotDetected); Cyclospora cayetanensis PCR Not Detected (NotDetected); Entamoeba histolytica PCR Not Detected (NotDetected); Enteroaggregative E.coli(EAEC) Not Detected (NotDetected); Enteropathogenic E.coli (EPEC) Not Detected (NotDetected); Enterotoxigenic E.coli (ETEC) Not Detected (NotDetected); Giardia lamblia PCR Not Detected (NotDetected); Norovirus GI/GII PCR Not Detected (NotDetected); Plesiomonas shigelloides PCR Not Detected (NotDetected); Rotavirus A PCR Not Detected (NotDetected); Salmonella PCR Not Detected (NotDetected); Sapovirus PCR Not Detected (NotDetected); Shiga-like Toxin E.coli (STEC) Not Detected (NotDetected); Shigella/Enteroinvasive E.coli Not Detected (NotDetected); Vibrio cholerae PCR Not Detected (NotDetected); Vibrio species PCR Not Detected (NotDetected); Yersinia enterocolitica PCR Not Detected (NotDetected)
[2022-06-27] MEDS: MIDODRINE HCL 2.5 MG TAB PO SCH ×3 (08:59→16:00)
[2022-06-27] MEDS: ASPIRIN 81 MG ECTAB PO SCH (08:59)
[2022-06-27] MEDS: allopurinoL 300 MG TAB PO SCH (09:00)
[2022-06-27] MEDS: GLUCOSAMINE SULFATE 500 MG CAP PO SCH (09:00)
[2022-06-27] MEDS: ATORVASTATIN 40 MG TAB PO SCH (09:00)
[2022-06-27] MEDS: ADVANCED PROBIOTIC 1250 MG CAPSULE PO SCH (09:02)
[2022-06-27] MEDS: INSULIN ASPART PER UNIT CHARGE SC SCH ×4 (09:05→20:42)
--- NOTE | 2022-06-27 09:22 | Palliative Care Consultation ---
Date of Consultation June 27, 2022 Assessment & Plan (1) Palliative care encounter: Pt confused today and unable to participate in discussion. During last month's admission, I met with pt and daughter to review that Palliative and hospice can be partners but we are not the same. It is important to understand the difference so that we may be informed, and not afraid. Palliative Medicine works to improve QOL through reduction of symptom burden/more control over their illness, for both the patient and family. Palliative medicine clinicians are board certified, specially-trained and another member of the patient's medical care team. We often provide an extra layer of support because our care is based on the needs of the patient, not the prognosis; as such, it's appropriate at any age/advancing stage of a serious illness and can be provided along with curative treatment. Palliative Medicine clinicians are also trained in advanced communication methodologies, to facilitate complex discussions about advanced illness planning, which are needed to help assure that the treatment choices match the patient's goals, aka delivering Goal Concordant care. Finally, we discussed that hospice is a visiting nurse service that focuses on care delivered at the very end of life for patients with terminal illness, with life expectancy less than 6 month. (2) Goals of care, counseling/discussion: patient's daughter: Linda #[phone] from prior discussion with me, Linda was very clear that so long as therapies such as HD and other interventions are offered such as pressors to tolerate HD etc., then she will continue along this plan fo care, as she feels medical teams would not offer interventions they do not believe would be meaningful and helpful for pt to get better. Linda understands pt will reach a point someday where her therapies may not be of help or she can no longer tolerate them. Linda looks to the relevant specialists to advised of when that time has been reached and she is aware that it would be an indication for shifting goals of care to be more focused non pt comfort. (3) End stage renal disease: HD MWF, last OP HD 06/24/22 with +syncope/unresponsiveness resulting in this admission. no evidence of fluid volume overload. (4) Syncope and collapse: Occurring during HD, may be signaling she is not tolerating HD as well as she used to, vaishali in greater context of numerous (9 admissions in past 11 mos)/high frequency admissions for same in the past year. Patient is beginning to reach the end stages of her advanced, chronic comorbidities. Daughter states she would look to nephro team for this guidance. (5) Acute and chronic respiratory failure: likely combined from existing COPD, pulm htn, covid sequelae and ESRD associated PH effect. Suggest titrating SpO2 to maintain target SpO2 >89% given underlyign severe COPD; this is deferred to primary team. (6) COPD, severe: (7) Pulmonary hypertension due to COPD: (8) Cerebral amyloid angiopathy: Plan Pt confused and unable to participate in discussion. She is going to have HD later today. No family at bedside but detailed discussions were held with dtr by me during admission last month. This admission daughter advising medical team she does not want palliative med "because I'm not giving up on my mother." I tried calling dtr today and was only able to leave a message on her voicemail. I provided my contact information and advised this was not an urgent call and that she could return the call at her convenience or have me paged if she is here to visit mom during the daytime business hours. For now, I will follow peripherally because a very clear GOC discussion was held 4 weeks ago and daughter/HCP is very clear about which medical information she prioritizes. I am available and willing to help facilitate another GOC discussion with all relevant specialists should this be desired and I will defer to them or CM to arrange a meeting time that works for them and dtr to attend. Rachell Swain DNP Clinical Director, Palliative Medicine History of Present Illness Reason for Consultation: On 06/26/22 @ 17:47 Jaylen Rudolph Wrote To Therese Ortega goals of care assessment Attending Physician: Jaylen Rudolph MD History of Present Illness per ED note: "76 year old female who presents to the Emergency Room after a syncopal episode and exhibiting strokelike symptoms. Patient is at [facility]. She is debilitated and is on chronic dialysis due to end-stage renal disease. Patient had dialysis today. She was with family and the patient seemed to become agitated and she then seemed to be drooling and became unresponsive. She was slumped in her chair. Prior to the event the daughter states she was basically at her baseline. EMS was summoned. Medical command was contacted and the patient was made a stroke alert. Daughter did note that the patient had a history of intracranial hemorrhage about 7 years ago. Upon arrival to the emergency department the patient had no facial droop or lateralizing findings. Daughter is present and states that she appears at her baseline. The patient has been given no medication or treatment prehospital relieving factors. Current pain is rated as 0/10. History is limited as the patient does have some memory impairment. Pt denies headache, fevers, chills, visual changes, neck pain, chest pain, breathing difficulties, nausea, vomiting, abdominal pain, back pain, numbness, or other complaints." PMH: COPD/nocturnal hypoxemia/pulm hypertension.; COVID-19 May 2022; +cerebral amyloid angiopathy w/cognitive impairment; recurrent CVA; chronic systolic heart failure with progressive valvular heart/severe TR, mild /MR (EF 40-45%, TTE 2021), CAD s/p stenting. Medicine admit note states: 'Goals of care reviewed with patient's daughter (Ms. Christine Kamara, contact #[phone]) given recurrent confinements. Patient daughter not ready for palliative care. " I won't give up on my mother." ' OF NOTE: Pt was seen by me during May 2022 admission + a family meeting was held with daughter telephonically, no objections were noted to our involvement, daughter needed a lot o reassurance patient was not actively dying because she conflated Palliative Medicine with hospice/end of life care and we had a discussion about how Palliative and hospice can be partners but we are not the same and that it's important to understand the difference so that we may be informed, and not afraid. Linda was advised about how Palliative Medicine works to improve QOL through reduction of symptom burden/more control over their illness, for both the patient and family. She was also repeatedly advised pt was not actively dying (see my consult note 05/05/22). She also states understanding that there would come a point where patient's current remedies including HD were not helping and when providers tell her it is time to stop THEN she will move to a comfort focused plan of care. Patient with 9 admissions in past 11 months: 07/21/21 10/20/21 02/21/22 02/23/22 02/25/22 04/18/22 05/04/22 PALLIATIVE CONSULT DONE 05/05/22 05/29/22 06/24/22 - current admission Allergies Allergy/AdvReac Type Severity Reaction Status Date / Time verapamil Allergy Unknown ON [place] Verified 06/24/22 17:55 [place] MED LIST lisinopril AdvReac Intermediate COUGH Verified 06/24/22 17:55 Home Medications Medication Instructions Recorded Confirmed Type lidocaine-prilocaine 2.5 %-2.5 % 1 applic topical 3XWK 02/25/22 06/24/22 History topical cream allopurinol 300 mg tablet 450 mg PO DAILY #45 tabs 03/01/22 06/24/22 Rx aspirin 81 mg tablet,delayed 162 mg PO DAILY #30 tabs 03/01/22 06/24/22 Rx release atorvastatin 80 mg tablet 80 mg PO DAILY #30 tabs 03/01/22 06/24/22 Rx calcitriol 0.5 mcg capsule 0.5 mcg PO 3XWK #12 caps 03/01/22 06/24/22 Rx docusate sodium 100 mg capsule 200 mg PO DAILY #60 caps 03/01/22 06/24/22 Rx (Colace) glucosamine KGv-I7-Kalyvorbm 1 tab PO DAILY #30 tabs 03/01/22 06/24/22 Rx rhiannon 1,500 mg-400 unit-100 mg tablet (Glucosamine Daily Complex) digoxin 125 mcg (0.125 mg) tablet 125 mcg PO 3XWK 06/24/22 06/24/22 History levetiracetam 500 mg tablet 500 mg PO 3XWK 06/24/22 06/24/22 History levetiracetam 500 mg tablet 500 mg PO 4XWK 06/24/22 06/24/22 History metoprolol succinate 25 mg 25 mg PO 4XWK 06/24/22 06/24/22 History tablet,extended release 24 hr nutritional supplements 1 ea PO DAILY 06/24/22 06/24/22 History Patient History Medical History (Updated 06/27/22 @ 09:18 by Rachell Swain, NAYA) Acromioclavicular joint separation Acute and chronic respiratory failure Atrial fibrillation CAD (coronary artery disease) "LEONA to LAD cath 2014 - moderate non obstructive disease" Carotid stenosis, bilateral Cerebral amyloid angiopathy ++cognitive impairment Clavicle fracture Closed left fibular fracture Contraindication to anticoagulation therapy Depression DM type 2 (diabetes mellitus, type 2) Dyslipidemia End stage renal disease Falls frequently Fracture, humerus GERD (gastroesophageal reflux disease) HTN (hypertension) IBS (irritable bowel syndrome) Nontraumatic intracerebral hemorrhage Palliative care encounter Pressure injury of back, unstageable Pulmonary hypertension assoc w/pulmonary Langerhans cell histiocytosis Pulmonary hypertension due to COPD Seizure disorder Surgical History AV fistula H/O sinus surgery History of total left knee replacement S/P cholecystectomy Social History Smoking Status: Never smoker Second Hand Exposure: Yes; Hx Alcohol Use: No Hx Substance Use: No Preferred Language: Hebrew Communication Ability: Unable English Language Learner Tutor Required: No Beliefs That Will Affect Care: None marital status: / Current Living Situation: Retirement Current Living Situation Comment: lives alone Other Information That Helps Us Care for You: No Feels Safe at Home: Yes Safety Concerns: Feels Safe At This Time Assistive Devices: Oxygen - Continuous and Wheelchair Review of Systems Review of Systems: Unobtainable due to cognitive status Physical Exam Constitutional: + ill appearing confused Eyes: PERRL, conjunctivae normal, anicteric sclerae ENMT: Mouth: + dry oral mucous membranes Neck: trachea midline, no thyromegaly Respiratory: normal respiratory effort Auscultation: + diminished lung sounds Cardiovascular: Rate/Rhythm: + irregularly irregular Heart Sounds: + murmur (holosystolic) Gastrointestinal (Abdomen): Inspection/Auscultation: normal bowel sounds Percussion/Palpation: abdomen soft and + hernia Musculoskeletal: generalized weakness Skin: skin pale and cool to touch Neurologic: Pt was confused, alert only to self Results & Data ([facility]) Vital Signs (Past 12 Hours) Vital Signs Temp Pulse Pulse Resp BP Pulse Ox O2 Del Method 06/27/22 06:33 36.7 C 95 H 18 91/45 L 100 Nasal Cannula 06/26/22 23:00 89 06/27/22 03:11 36.9 C 89 16 95/55 L 98 Room Air 06/26/22 23:00 36.5 C 103 H 15 85/42 L 100 Nasal Cannula O2 Flow Rate 06/27/22 06:33 3 02/26/23 23:00 06/27/22 03:11 06/26/22 23:00 3 Laboratory Results data reviewed Diagnostic Findings data reviewed PG Care Time/CCT Total # of Minutes Spent Total Time Spent: 80 Total Time Spent with Patient: Total time spent is greater than 50% in coordination of care (as documented) at patient's floor/unit and/or counseling patient: 10 min chart review/labs/imaging 45 min with pt face to face/exam/consultation 10 min coord of care/plan of care 15 min communication with: updated primary team, attempted to reach daughter/POA for discussion [place] [address] IN/OBS CONSULT LVL 5,80M Patient Type New History Comprehensive Exam Comprehensive Medical Decision Making High Complexity Diagnoses Palliative care encounter Z51.5 Goals of care, counseling/discussion Z71.89 End stage renal disease N18.6 Syncope and collapse R55 Acute and chronic respiratory failure J96.20 COPD, severe J44.9 Pulmonary hypertension due to COPD I27.23; J44.9 Cerebral amyloid angiopathy E85.4; I68.0
[2022-06-27] MEDS ORDERED: ONDANSETRON INJ 2 MG/ML 2 ML VIAL IV STA (10:22)
[2022-06-27] MEDS: ACETAMINOPHEN 325 MG TAB PO PRN (10:54)
--- NOTE | 2022-06-27 14:20 | Dialysis Progress Note ---
Date of Service June 27, 2022 Assessment & Plan (1) End stage renal disease: Plan: ESRD on dialysis Monday. Her last outpatient dialysis was on 06/24/2022. Patient admitted after episode of unresponsiveness few hours after returning from dialysis. Electrolytes are stable and no signs of volume overload. No indication for dialysis. Next dialysis will be on Monday as IP or OP. UF Limited by hyoptension; obligate BB d/t HR (2) Acute on chronic respiratory failure with hypoxemia: Plan: Patient is on oxygen 2L nasal cannula. Monitor and titrate oxygen for FiO2 above 92. Continue work-up for possible infectious causes of her hypotension Admission and Anticipated Discharge Date Admission Date: June 24, 2022 Subjective seen on HD and tolerating about 1200 mL UF; Review of Systems Review of Systems: All systems reviewed & are unremarkable except as noted in Subjective Physical Exam Constitutional: well developed and well nourished Eyes: EOM intact bilaterally ENMT: Ears: no external ear abnormality Nose: no external nose abnormality Mouth: + dry oral mucous membranes Neck: no nuchal rigidity Respiratory: normal respiratory effort Auscultation: + diminished lung sounds Cardiovascular: Rate/Rhythm: regular rate and + tachycardic Extremities: no edema Gastrointestinal (Abdomen): Inspection/Auscultation: normal bowel sounds Percussion/Palpation: abdomen soft; abdomen nontender Musculoskeletal: Extremities: + abnormal strength Skin: no rashes, warm and dry Neurologic: schmidt, limited speech, no tremor Results & Data ([facility]) Vital Signs (Past 12 Hours) Vital Signs Temp Pulse Pulse Pulse Resp BP BP 06/27/22 14:04 37.0 C 108 H 18 136/71 06/27/22 13:00 94 H 96/63 L 06/27/22 12:30 107 H 109/78 06/27/22 12:00 107 H 134/84 06/27/22 11:30 105 H 91/60 L 06/27/22 13:20 36.3 C L 75 102/72 06/27/22 11:00 105 H 91/60 L 06/27/22 09:00 96 H 06/27/22 09:00 06/27/22 10:30 101 H 112/66 06/27/22 10:00 112 H 115/71 06/27/22 09:45 107 H 96/55 L 06/27/22 09:31 109 H 111/74 06/27/22 09:17 36.8 C 122 H 06/27/22 06:33 36.7 C 95 H 18 91/45 L 06/27/22 03:11 36.9 C 89 16 95/55 L Pulse Ox O2 Del Method O2 Flow Rate 06/27/22 14:04 97 Nasal Cannula 2 06/27/22 13:00 06/27/22 12:30 06/27/22 12:00 06/27/22 11:30 06/27/22 13:20 06/27/22 11:00 06/27/22 09:00 06/27/22 09:00 Nasal Cannula 3 06/27/22 10:30 06/27/22 10:00 06/27/22 09:45 06/27/22 09:31 06/27/22 09:17 06/27/22 06:33 100 Nasal Cannula 3 06/27/22 03:11 98 Room Air Laboratory Results 06/26/22 17:45 06/26/22 17:45
[2022-06-27] MEDS: LIDOCAINE/PRILOCAINE 2.5% EA CRM EXT SCH (14:39)
[2022-06-27] MEDS: CALCITRIOL 0.25 MCG CAPSULE PO SCH (15:55)
[2022-06-27] MEDS: DIGOXIN 0.125 MG TAB PO SCH (15:56)
--- NOTE | 2022-06-27 18:22 | Hospitalist Progress Note ---
Date of Service June 27, 2022 Assessment & Plan (1) Unresponsiveness: Plan: Syncope secondary to Hypotension Multifactorial : Hypovolemia Rule out adrenal insufficiency Possible sepsis, rule out bacteremia UTI ruled out 06/25 awake, alert BP improving after IV fluids, antibiotics, Midodrine urine culture: pending blood culture: pending continue IV Cefepime, Midodrine next HD Monday 06/26 Blood pressure still on the lower side Urine culture showing lactobacillus and Viviane Blood cultures: Negative so far x24 hours Continue IV cefepime day #2 Continue midodrine 5 mg p.o. 3 times daily Next HD tomorrow 06/27 Blood pressure on the lower side Infection work-up negative DC IV cefepime Check a.m. cortisol Continue midodrine 5 mg p.o. 3 times daily Altered mental status, likely secondary to delirium Multifactorial: Hospital delirium, underlying ESRD Easily oriented, confusion waxing and waning Has had previous episodes of hospital delirium Ammonia level normal Continue delirium prevention strategies Reorientation Troponin elevation secondary to illness, rapid A-fib in the setting of kidney dysfunction Patient not on anticoagulation secondary to history ICH, history of cerebral amyloid angiopathy 06/26 Trop stable at 300s No cardiac symptoms hx COPD/nocturnal hypoxemia/pulm hypertension, oxygenation stable --At baseline 3 L of oxygen via nasal cannula hx chronic systolic heart failure -- No signs of volume overload hx CAD sp stenting valvular heart disease (severe TR, mild /MR ) --No cardiac symptoms history of recurrent CVA hyperlipidemia on statin Rx 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 SCDs Re: Episodic thrombocytopenia Disposition pending PT/OT evaluation Admission and Anticipated Discharge Date Admission Date: June 24, 2022 Subjective For hypotension, etc. Seen in the hemodialysis unit, patient awake and alert Oriented x1-2 Answers most questions appropriately, forgetful on other things Was having nausea, seems to be improving no chest pain, dyspnea, palpitations, dizziness No abdominal pain, fevers or chills Reevaluated in her room after dialysis Patient still seems somewhat confused Easily reoriented Review of Systems Review of Systems: all noted and negative except for above Physical Exam Physical Exam: General- oriented x 1, not in distress, speaks in sentences with no effort or accessory muscle use Eyes- anicteric Neck- no JVD Lungs- clear breath sounds bilaterally, no wheezing, no crackles noted Heart- normal rate, regular rhythm; no murmurs Abdomen- normal bowel sounds, nondistended, soft, nontender Extremities- no pretibial edema, no calf tenderness Neuro- alert, oriented x 1; no new gross focal neurologic deficits Skin- warm & dry Results & Data Results & Data ([facility]) Vital Signs (Past 12 Hours) Vital Signs Temp Pulse Pulse Pulse Resp BP BP 06/27/22 16:20 36.7 C 110 H 20 86/54 L 06/27/22 15:54 106 H 95/69 L 06/27/22 14:04 37.0 C 108 H 18 136/71 06/27/22 13:00 94 H 96/63 L 06/27/22 12:30 107 H 109/78 06/27/22 12:00 107 H 134/84 06/27/22 11:30 105 H 91/60 L 06/27/22 13:20 36.3 C L 75 102/72 06/27/22 11:00 105 H 91/60 L 06/27/22 09:00 96 H 06/27/22 09:00 06/27/22 10:30 101 H 112/66 06/27/22 10:00 112 H 115/71 06/27/22 09:45 107 H 96/55 L 06/27/22 09:31 109 H 111/74 06/27/22 09:17 36.8 C 122 H 06/27/22 06:33 36.7 C 95 H 18 91/45 L Pulse Ox O2 Del Method O2 Flow Rate 06/27/22 16:20 100 Nasal Cannula 3.0 06/27/22 15:54 06/27/22 14:04 97 Nasal Cannula 2 06/27/22 13:00 06/27/22 12:30 06/27/22 12:00 06/27/22 11:30 06/27/22 13:20 06/27/22 11:00 06/27/22 09:00 06/27/22 09:00 Nasal Cannula 3 06/27/22 10:30 06/27/22 10:00 06/27/22 09:45 06/27/22 09:31 06/27/22 09:17 06/27/22 06:33 100 Nasal Cannula 3 all noted and reviewed including below
[2022-06-28] MEDS: ACETAMINOPHEN 325 MG TAB PO PRN (02:10)
[2022-06-28] MEDS: INSULIN ASPART PER UNIT CHARGE SC SCH ×4 (07:34→21:05)
[2022-06-28] MEDS: MIDODRINE HCL 2.5 MG TAB PO SCH ×3 (08:25→17:03)
[2022-06-28] MEDS: ATORVASTATIN 40 MG TAB PO SCH (08:26)
[2022-06-28] MEDS: ADVANCED PROBIOTIC 1250 MG CAPSULE PO SCH (08:26)
[2022-06-28] MEDS: ASPIRIN 81 MG ECTAB PO SCH (08:26)
[2022-06-28] MEDS: METOPROLOL SUCC 25MG EXT REL TAB PO SCH (08:27)
[2022-06-28] MEDS: GLUCOSAMINE SULFATE 500 MG CAP PO SCH (08:27)
[2022-06-28] MEDS: allopurinoL 300 MG TAB PO SCH (08:27)
[2022-06-28] MEDS: levETIRAcetam 500 MG TAB PO SCH ×2 (08:28→20:16)
--- NOTE | 2022-06-28 13:33 | CT Scan Report ---
CT head/brain wo con CLINICAL HISTORY: confusion Technique: Contiguous axial CT images of the head were acquired from the base of the skull to the nate natalie without intravenous contrast administration. Images were viewed in brain, subdural and [facility]. Automated dose lowering techniques and/or adjustment according to patient size were utilized for this exam. Comparison: Comparison is made to CTA head 06/24/2022 Findings: Areas of decreased attenuation are present in the periventricular and subcortical white matter bilate rally consistent with small vessel ischemic disease. Generalized cerebral atrophy with commensurate e nlargement of the ventricles, sulci, and cisterns is also present. There is no acute intracranial hem orrhage or evidence of acute territorial infarction. No shift of the midline structures, mass effect, or extra-axial abnormalities are shown. Atherosclerotic calcifications are present in the intracran ial segments of the internal carotid arteries. Right maxillary sinus disease is noted. The orbits appear normal. There are no acute fractures of th e calvaria or scalp swelling. Impression: No acute intracranial hemorrhage, no evidence of acute territorial infarction or other acute intracra nial disease process. ACT 112: Negative or not required by law. Electronically signed by: Kole Hammond M.D. 06/28/2022 1:32 PM
[2022-06-28 15:35] LABS: BUN Creatinine Ratio 7.8 (10-20); Creatinine Clr Calc Pharmacy 14.2 ml/min; Est GFR (African American) 15.4 ml/min; Est GFR (Non-African American) 13.3 ml/min; Potassium 4.3 mmol/L (3.5-5.1)
--- NOTE | 2022-06-28 15:45 | Hospitalist Progress Note ---
Date of Service June 28, 2022 Assessment & Plan (1) Unresponsiveness: Plan: Syncope secondary to Hypotension Multifactorial : Hypovolemia Rule out adrenal insufficiency Possible sepsis, rule out bacteremia UTI ruled out 06/28 Blood pressures still on the lower side Continue midodrine 5 mg p.o. 3 times daily, started during this admission urine culture: lactobacillus and Viviane blood culture: Negative IV Cefepime discontinued AM Cortisol level normal Patient has had multiple readmissions over the past year Patient's daughter Linda requested palliative care consultation Altered mental status, likely secondary to delirium Multifactorial: Hospital delirium, underlying ESRD Patient has underlying seizure disorder as well Easily oriented, confusion waxing and waning Has had previous episodes of hospital delirium, appears to be having protracted delirium this time Ammonia level normal Continue delirium prevention strategies Reorientation Discussed with neurologist Dr. Brooks, recommend EEG and brain MRI Patient cannot tolerate brain MRI, CT head: No acute process Follow-up EEG Troponin elevation secondary to illness, rapid A-fib in the setting of kidney dysfunction Patient not on anticoagulation secondary to history ICH, history of cerebral amyloid angiopathy Trop stable at 300s No cardiac symptoms hx COPD/nocturnal hypoxemia/pulm hypertension, oxygenation stable --At baseline 3 L of oxygen via nasal cannula hx chronic systolic heart failure -- No signs of volume overload hx CAD sp stenting valvular heart disease (severe TR, mild /MR ) --No cardiac symptoms Other chronic conditions: history of recurrent CVA hyperlipidemia on statin Rx 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 SCDs Re: Episodic thrombocytopenia Disposition pending-Will likely need SNF PT/OT evaluation Admission and Anticipated Discharge Date Admission Date: June 24, 2022 Subjective ff up for hypotension, delirium, etc seen resting in bed, comfortable Sitting up, on 2 L of oxygen Patient still confused States she feels okay overall Denies shortness of breath, abdominal pain, nausea and vomiting No other symptoms Review of Systems Review of Systems: all noted and negative except for above Physical Exam Physical Exam: General- oriented x 1, not in distress, speaks in sentences with no effort or accessory muscle use Eyes- anicteric Neck- no JVD Lungs- clear BS BL Heart- normal rate, regular rhythm; no murmurs Abdomen- normal bowel sounds, nondistended, soft, nontender Back-small decubitus ulcers, no signs of infection Extremities- no pretibial edema, no calf tenderness Right foot-positive eschar on the heel, no signs of infection Neuro- alert, oriented x 1; no gross focal neurologic deficits Skin- warm & dry Results & Data Results & Data ([facility]) Vital Signs (Past 12 Hours) Vital Signs Temp Pulse Pulse Resp BP Pulse Ox O2 Del Method 06/28/22 08:00 Nasal Cannula 06/28/22 11:33 37 C 100 H 20 104/61 99 Nasal Cannula 06/28/22 07:37 112 H 06/28/22 07:13 36.6 C 102 H 17 91/54 L 97 Nasal Cannula O2 Flow Rate 06/28/22 08:00 2 06/28/22 11:33 4 06/28/22 07:37 06/28/22 07:13 3 all noted and reviewed including below
[2022-06-28] MEDS ORDERED: OPTIRAY 320 500ml IV ONE (17:43)
--- NOTE | 2022-06-28 18:08 | CT Scan Report ---
CT OF THE HEAD WITHOUT CONTRAST CLINICAL HISTORY: worsening neuro status COMPARISON STUDY: Head CT June 24, 2022 and June 28, 2022 at 1:18 PM. MRI of the brain October 10, 2019. TECHNIQUE: Helical axial images of the head were obtained without IV contrast. Automated exposure con trol was utilized for the study. A dose lowering technique was utilized adhering to the principles o f ALARA. FINDINGS: No acute intracranial hemorrhage, midline shift or mass effect is present. Ventricular syst em is stable. Basal cisterns are patent. There are no extraaxial collections. Extensive white matter hypodensities are unchanged and favor small vessel disease. Old infarcts within the bilateral cerebel lar hemispheres are unchanged. Old left frontal lobe infarct is noted. The appearance of the brain is unchanged. There are no findings to suggest acute dural sinus thrombosis or acute territorial infarc t. There are no significant calvarial abnormalities. There are secretions within the right sphenoid s inus. Small amount of fluid within the bilateral mastoid air cells is present. IMPRESSION: No acute intracranial findings. No change in appearance of the brain. ACT 112: Negative or not required by law. Electronically signed by: Andrews Gauthier M.D. 06/28/2022 6:06 PM
--- NOTE | 2022-06-28 18:16 | CT Scan Report ---
CT ANGIOGRAPHY OF THE NECK WITH CONTRAST CLINICAL HISTORY: worsening neuro status COMPARISON STUDY: CTA of the neck June 24, 2022. Technique: CT angiography of the carotid and vertebral arteries was obtained using Optiray and 3D rec onstruction on an independent workstation. NASCET criteria was utilized. Automated exposure control was utilized for the study. A dose lowering technique was utilized adhering to the principles of ALA RA. CT DOSE: 1194.18 mGy.cm Findings: A right pleural effusion is partially imaged. There is no cervical lymphadenopathy. No acut e cervical spine fracture is noted. The bilateral vertebral arteries are somewhat diminutive. This is unchanged. There is extensive plaque within the bilateral common carotid and cervical internal carot id arteries. There is 80% stenosis of the proximal left internal carotid artery, 1.5 cm distal to the vessel origin. There is 50% stenosis of the proximal right internal carotid artery. CTA of the head will be reported separate. IMPRESSION: Extensive plaque within the bilateral common carotid and internal carotid arteries. 80% s tenosis of the proximal left internal carotid artery and 50% stenosis of the proximal right internal carotid artery. ACT 112: Negative or not required by law. Electronically signed by: Andrews Gauthier M.D. 06/28/2022 6:13 PM
--- NOTE | 2022-06-28 18:28 | CT Scan Report ---
CTA ANGIOGRAPHY OF THE HEAD CLINICAL HISTORY: worsening neuro status COMPARISON STUDY: CTA of the head June 24, 2022. TECHNIQUE: Helical axial images of the head were obtained following uneventful intravenous administr ation of 111 cc of Optiray. Sagittal and coronal reconstructions were viewed as well as maximal inten sity projections on an independent 3-D workstation. Automated exposure control was utilized for the study. A dose lowering technique was utilized adhering to the principles of ALARA. FINDINGS: Extensive plaque within the bilateral cavernous carotids is noted. There is moderate stenos is of the supraclinoid left ICA. This is unchanged. No central vessel occlusion is identified. There is no intracranial aneurysm. There is persistence of the bilateral posterior cerebral arteries. The intracranial portions of the vertebral arteries and the basilar artery are diminutive. This is u nchanged. No intracranial aneurysm. Major dural sinuses are patent. Ventricular system is stable. Sma ll amount of fluid within the bilateral mastoid air cells is noted. There are secretions within the r ight maxillary and left sphenoid sinuses. There are postoperative findings within the ethmoid sinuses . IMPRESSION: 1. No central vessel occlusion. No intracranial aneurysm. 2. This is unchanged since prior CTA, as described above. Moderate intracranial plaque. ACT 112: Negative or not required by law. Electronically signed by: Andrews Gauthier M.D. 06/28/2022 6:25 PM
[2022-06-28] MEDS ORDERED: SODIUM CHLORIDE 0.9% 500 ML IV SCH (18:45)
[2022-06-28] MEDS ORDERED: OLANZapine 10 MG/2.1 ML SDV IM STA (19:31)
--- NOTE | 2022-06-28 20:14 | Magnetic Resonance Report ---
MRI OF THE BRAIN WITHOUT CONTRAST CLINICAL HISTORY: altered MS, dysarthria, r/o acute CVA COMPARISON STUDY: MRI of the brain October 10, [address] and CTA of the head performed earlier to day. TECHNIQUE: Utilizing a 1.5 Yuki magnet and dedicated coil, multiplanar, multiecho imaging of the bra in was performed without IV contrast. FINDINGS: This study is moderately compromised by motion artifact. However, there are no foci of rest ricted diffusion to suggest acute infarct. Ventricular system is stable. Basal cisterns are patent. T here are no extra-axial collections. Foci of encephalomalacia within the cerebellar hemispheres are u nchanged. Extensive white matter T2 hyperintense foci are unchanged. Old lacunar infarcts within the bilateral basal ganglia are noted. No intracranial masses are identified on unenhanced exam. Fluid wi thin the bilateral mastoid air cells is greater on the left. There are secretions within the left sph enoid and right maxillary sinuses. IMPRESSION: 1. No acute intracranial findings. 2. Exam compromised by motion artifact. ACT 112: Negative or not required by law. Electronically signed by: Andrews Gauthier M.D. 06/28/2022 8:12 PM
[2022-06-29] MEDS: levETIRAcetam 500 MG TAB PO SCH (05:54)
--- NOTE | 2022-06-29 05:59 | Communication Note ---
Date of Service: June 29, 2022 Notified by RN of aspiration event. N.p.o. for now WILLIAMS tee
[2022-06-29] MEDS ORDERED: MAGNESIUM SULFATE / D5W 1 GM/100 ML BAG IV ONE (06:26)
[2022-06-29] MEDS: DIGOXIN 125 MCG in SYRINGE 9.5 ML IV ONE ×2 (06:36→07:38)
[2022-06-29 06:44] LABS: BUN Creatinine Ratio 8.1 (10-20); Calcium 9.5 mg/dl (8.5-10.1); Chol HDL Ratio 4.5 (0-5); Creatinine Clr Calc Pharmacy 10.7 ml/min; Est GFR (Non-African American) 9.5 ml/min; Potassium 4.5 mmol/L (3.5-5.1)
[2022-06-29] MEDS ORDERED: Nursing to Pharmacy Communication SCH (06:45)
--- NOTE | 2022-06-29 07:17 | XRay Report ---
XR chest 1V portable CLINICAL HISTORY: aspiration TECHNIQUE: Single frontal radiograph of the chest was obtained. Comparison: Comparison is made to chest radiograph 06/26/2019 FINDINGS: No lines and tubes are seen. Cardiomegaly is noted. The aortic arch is calcified. Prominence and ceph alization of the vasculature is seen. Trace right pleural effusion is noted. IMPRESSION: 1. Cardiomegaly and mild pulmonary edema. No evidence of consolidative opacity to suggest aspiration . 2. Trace right pleural effusion. ACT 112: Negative or not required by law. Electronically signed by: Kole Hammond M.D. 06/29/2022 7:16 AM
[2022-06-29] MEDS: levETIRAcetam 500 MG in 0.9 % SODIUM CHLORIDE 100 ML IV SCH ×3 (07:39→20:15)
[2022-06-29] MEDS: INSULIN ASPART PER UNIT CHARGE SC SCH ×4 (09:27→20:41)
[2022-06-29] MEDS: MIDODRINE HCL 2.5 MG TAB PO SCH ×3 (10:06→16:54)
[2022-06-29] MEDS: ASPIRIN 81 MG ECTAB PO SCH (10:07)
[2022-06-29] MEDS: ADVANCED PROBIOTIC 1250 MG CAPSULE PO SCH (10:07)
[2022-06-29] MEDS: ATORVASTATIN 40 MG TAB PO SCH (10:08)
[2022-06-29] MEDS: allopurinoL 300 MG TAB PO SCH (10:11)
[2022-06-29] MEDS: GLUCOSAMINE SULFATE 500 MG CAP PO SCH (10:11)
--- NOTE | 2022-06-29 10:36 | Hospitalist Progress Note ---
Date of Service June 29, 2022 Assessment & Plan (1) Unresponsiveness: Plan: Syncope secondary to Hypotension Most likely due to hypotension (SBP in 70s on admission) Started midodrine 5mg PO TID with improved BP AM cortisol normal blood cultures negative History of multiple readmissions for similar. Daughter, Linda, requested Palliative Care consultation--she was seen yesterday Altered mental status, likely secondary to delirium Multifactorial: Hospital delirium, underlying ESRD Patient has underlying seizure disorder as well Yesterday noted to have slurred speech and stroke alert was called. CT head negative for acute findings. CTA head/neck shows 80% left ICA stenosis and 50% right ICA stenosis. MRI lobo negative for acute stroke. EEG pending. 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 SCDs Re: Episodic thrombocytopenia Disposition pending-Will likely need SNF PT/OT evaluation Admission and Anticipated Discharge Date Admission Date: June 24, 2022 Subjective Yesterday patient noted to have more slurred speech (in addition to confusion which she has been experiencing). Stroke alert was called (see Dr Rudolph's note for details) BP has remained stable Overnight, concern for coughing episode with water so she was made NPO and [employer] eval was ordered I was present for her morning medication administrations--she did well taking her pills in apple sauce, no coughing was noted Patient herself is a poor historian Review of Systems Review of Systems: As above in HPI, ROS limited due to patient's mental status Physical Exam Physical Exam: No acute distress, non toxic Respiratory: Breathing comfortably, no wheezing/rhonchi/rales Cardiovascular: Regular rate and rhythm, no murmurs/rubs/gallops Gastrointestinal (Abdomen): soft, non tender, non distended Musculoskeletal: No edema Skin: bruising on arms Neurologic: awake, poor historian, difficulty answering questions. Speech is not coherent. Unable to follow commands. Results & Data Results & Data ([facility]) Vital Signs (Past 12 Hours) Vital Signs Temp Pulse Pulse Pulse Resp BP Pulse Ox 06/29/22 10:25 36.6 C 102 H 20 109/70 97 06/29/22 07:38 110 H 06/29/22 07:12 36.7 C 110 H 18 103/52 L 97 06/29/22 02:21 37.4 C 125 H 18 128/62 98 06/28/22 23:51 91 H 06/28/22 23:27 37.5 C 104 H 16 125/56 L 99 O2 Del Method O2 Flow Rate 06/29/22 10:25 Nasal Cannula 3 06/29/22 07:38 06/29/22 07:12 Nasal Cannula 06/29/22 02:21 Nasal Cannula 3 06/28/22 23:51 06/28/22 23:27 Nasal Cannula 3
[2022-06-29] MEDS: LIDOCAINE/PRILOCAINE 2.5% EA CRM EXT SCH (16:16)
[2022-06-29] MEDS: CALCITRIOL 0.25 MCG CAPSULE PO SCH (16:51)
[2022-06-29] MEDS: DIGOXIN 0.125 MG TAB PO SCH (16:51)
[2022-06-29] MEDS ORDERED: OLANZapine ZYDIS 5 MG ORALLY DIS. TAB PO STA (19:44)
--- NOTE | 2022-06-29 20:58 | Nephrology Progress Note ---
Date of Service June 29, 2022 Assessment & Plan (1) End stage renal disease: Plan: ESRD on dialysis Monday. Her last outpatient dialysis was on 06/24/2022. Patient admitted after episode of unresponsiveness few hours after returning from dialysis. Electrolytes are stable and no signs of volume overload. No indication for dialysis. Next dialysis will be on Monday as IP or OP. UF Limited by hyoptension; obligate BB d/t HR >dialysis held today d/t relative hypotension and concern treatment could worsen hemodynamics even w/ no UF -will reassess in AM pt status, recent clinical events reviewed w/ Dr Gerber (2) Acute on chronic respiratory failure with hypoxemia: Plan: Patient is on oxygen 2-3L nasal cannula currently. Monitor and titrate oxygen for FiO2 above 92. Admission and Anticipated Discharge Date Admission Date: June 24, 2022 Subjective seen on late afternoon rounds; dialysis held today d/t hypotension and need for supporting BP after stroke alert yesterday w/ slurred speech and 80% L ICA stenosis w/ 50% R; pt had 1/2 L IVF ON. then NPO as of thsi am d/t aspiration event Review of Systems Review of Systems: All systems reviewed & are unremarkable except as noted in Subjective Physical Exam Constitutional: well developed, well nourished, + frail appearing and + let hargic ENMT: Ears: no external ear abnormality Nose: no external nose abnormality Mouth: + dry oral mucous membranes Neck: no nuchal rigidity Respiratory: normal respiratory effort Auscultation: + diminished lung sounds Cardiovascular: Rate/Rhythm: regular rate and + tachycardic Extremities: + AV fistula (+ t/b); no edema (in lower extremities) Gastrointestinal (Abdomen): Inspection/Auscultation: normal bowel sounds Percussion/Palpation: abdomen soft; abdomen nontender Musculoskeletal: Extremities: + abnormal strength Skin: no rashes, warm and dry Results & Data ([facility]) Vital Signs (Past 12 Hours) Vital Signs Temp Pulse Pulse Resp BP Pulse Ox O2 Del Method 06/29/22 20:20 36.8 C 98 H 17 98/63 L 99 Nasal Cannula 06/29/22 16:51 101 H 06/29/22 15:32 37.8 C H 101 H 22 115/72 100 Nasal Cannula 06/29/22 15:17 97 H 06/29/22 11:26 Nasal Cannula 06/29/22 10:25 36.6 C 102 H 20 109/70 97 Nasal Cannula O2 Flow Rate 06/29/22 20:20 3 06/29/22 16:51 06/29/22 15:32 3 06/29/22 15:17 06/29/22 11:26 3 06/29/22 10:25 3 Laboratory Results 06/26/22 17:45 06/29/22 05:26
[2022-06-29] MEDS ORDERED: THIAMINE HCL 200 MG in SODIUM CHLORIDE 0.9% 50 ML IV STA (21:34)
[2022-06-29 22:28] LABS: Base Excess ABG 3.1 mEq/L (-9-1.8); HCO3 ABG 30 mmol/L (19-24); Oxygen Saturation ABG > 100.0 % (90-95); PCO2 ABG 51 mmHg (35-46); PO2 ABG 156 mmHg (80-95); pH ABG 7.37 (7.35-7.45)
[2022-06-29 22:38] LABS: Allen Test pos (Pos)
[2022-06-30 01:08] LABS: Thyroid Stimulating Hormone 4.693 uIu/ml (0.300-4.500)
[2022-06-30 01:10] LABS: T4 Free Thyroxine 0.8 ng/dl (0.61-1.60)
[2022-06-30] MEDS ORDERED: FOLIC ACID 1 MG in SYRINGE 9.8 ML IV SCH (01:30)
[2022-06-30 07:46] LABS: Basophils # (auto) 0.12 K/uL (0-0.2); Basophils % (auto) 1.1 %; Eosinophils # (auto) 0.32 K/uL (0-0.50); Eosinophils % (auto) 2.8 %; Hemoglobin 9.1 g/dl (12.0-16.0); Immature Granulocytes # (auto) 0.39 K/uL (0.01-0.20); Immature Granulocytes % (auto) 3.5 %; Lymphocytes # (auto) 1.71 K/uL (1.2-3.4); Lymphocytes % (auto) 15.1 %; Mean Corpuscular Hemoglobin 32.4 pg (25.0-34.0); Mean Corpuscular Hgb Conc 31.4 g/dL (32.0-36.0); Mean Corpuscular Volume 103.2 fL (80.0-100.0); Mean Platelet Volume 11.8 fL (9.4-12.4); Monocytes # (auto) 1.16 K/uL (0.11-0.59); Monocytes % (auto) 10.3 %; Neutrophils # (auto) 7.59 K/uL (1.40-6.50); Neutrophils % (auto) 67.2 %; Nucleated RBC # (auto) 0.38 K/uL (0-0.12); Nucleated RBC % (auto) 3.4 %; Platelet Count 278 K/uL (130-400); RDW Coefficient of Variation 16.9 % (11.5-14.5); Red Blood Count 2.81 M/uL (4.20-5.40); White Blood Count 11.29 K/ul (4.8-10.8)
[2022-06-30] MEDS: INSULIN ASPART PER UNIT CHARGE SC SCH ×4 (08:29→20:34)
[2022-06-30 08:30] LABS: Ovalocytes 2+
[2022-06-30] MEDS: ADVANCED PROBIOTIC 1250 MG CAPSULE PO SCH ×2 (08:36→10:27)
[2022-06-30] MEDS: ATORVASTATIN 40 MG TAB PO SCH ×2 (08:37→10:27)
[2022-06-30] MEDS: allopurinoL 300 MG TAB PO SCH ×2 (08:39→10:27)
[2022-06-30] MEDS: METOPROLOL SUCC 25MG EXT REL TAB PO SCH (08:39)
[2022-06-30] MEDS: GLUCOSAMINE SULFATE 500 MG CAP PO SCH ×2 (08:40→10:27)
[2022-06-30] MEDS: ASPIRIN 81 MG ECTAB PO SCH ×2 (08:42→10:27)
[2022-06-30] MEDS: FOLIC ACID 1 MG TAB PO SCH ×2 (08:43→10:27)
[2022-06-30] MEDS: MIDODRINE HCL 2.5 MG TAB PO SCH ×4 (08:43→16:56)
[2022-06-30 08:48] LABS: Albumin Globulin Ratio 1.1 (0.9-2); Albumin Level 2.9 gm/dl (3.4-5.0); BUN Creatinine Ratio 8.9 (10-20); Bilirubin,Total 0.4 mg/dl (0.2-1.0); Calcium 9.6 mg/dl (8.5-10.1); Est GFR (African American) 8.8 ml/min; Est GFR (Non-African American) 7.6 ml/min; Globulin 2.6 gm/dl (2.5-4.0); Potassium 4.5 mmol/L (3.5-5.1); Total Protein 5.5 gm/dl (6.0-8.3)
[2022-06-30] MEDS ORDERED: levETIRAcetam 500 MG in 0.9 % SODIUM CHLORIDE 100 ML IV SCH (09:00)
--- NOTE | 2022-06-30 09:06 | Nephrology Progress Note ---
Date of Service June 30, 2022 Assessment & Plan (1) Hypotension: Plan: ongoing hypotension despite holding HD -last TTE in May w/ new/large wall motion abnormality and newly decreased left ventricular systolic function. Question given ongoing and quite signifi cant hypotension if it is worth repeating this study for any changes in cardiac function or progression in left ventricular dysfunction With lower oxygen requirement, ongoing hypotension, controlled potassium and other parameters will again hold dialysis today to see if holding dialysis brings any improvement in her hemodynamics (2) End stage renal disease: Plan: ESRD on dialysis Monday. Her last outpatient dialysis was on 06/24/2022. Her most recent inpatient dialysis was June 27, 2022. patient admitted after episode of unresponsiveness occurring a few hours after returning from dialysis. Electrolytes are stable and no signs of volume overload. No indication for dialysis. UF Limited by hyoptension; obligate BB d/t HR >dialysis held again today d/t relative hypotension and concern treatment could worsen hemodynamics even w/ no UF -will reassess for need for treatment daily -Will attempt to reach daughter to discuss (3) Acute on chronic respiratory failure with hypoxemia: Plan: Patient is on oxygen 1-2L nasal cannula currently. Monitor and titrate oxygen for FiO2 above 92. Admission and Anticipated Discharge Date Admission Date: June 24, 2022 Subjective no interval events. pt remains quite lethargic and confused > can't participate in ROS when I saw her on midday rounds Review of Systems Review of Systems: All systems reviewed & are unremarkable except as noted in Subjective Physical Exam Constitutional: well developed, well nourished, + frail appearing and + lethargic Eyes: EOM intact bilaterally ENMT: Ears: no external ear abnormality Nose: no external nose abnormality Mouth: + dry oral mucous membranes Neck: no nuchal rigidity Respiratory: normal respiratory effort Auscultation: + diminished lung sounds Cardiovascular: Rate/Rhythm: regular rate and + tachycardic Extremities: + AV fistula (+ t/b); no edema (in lower extremities) Gastrointestinal (Abdomen): Inspection/Auscultation: normal bowel sounds Percussion/Palpation: abdomen soft; abdomen nontender Musculoskeletal: Extremities: + abnormal strength Skin: no rashes, warm and dry Neurologic: lethargic, obtunded, confused/mumbling Results & Data ([facility]) Vital Signs (Past 12 Hours) Vital Signs Temp Pulse Pulse Pulse Resp BP Pulse Ox 03/02/23 07:43 102 H 06/30/22 07:22 36.4 C L 98 H 18 98/64 L 96 06/29/22 22:15 06/30/22 02:53 88 06/30/22 02:40 36.8 C 97 H 19 110/65 95 06/29/22 23:22 36.7 C 90 19 111/77 97 O2 Del Method O2 Flow Rate 06/30/22 07:43 06/30/22 07:22 Nasal Cannula 1 06/29/22 22:15 Nasal Cannula 3 06/30/22 02:53 06/30/22 02:40 Nasal Cannula 1 06/29/22 23:22 Nasal Cannula 1 Laboratory Results 06/30/22 06:49 06/30/22 06:49
--- NOTE | 2022-06-30 09:27 | Neurology Consultation ---
Date of Consultation June 30, 2022 Assessment & Plan (1) Encephalopathy: (2) Carotid stenosis, bilateral: (3) Seizure disorder: (4) Syncope and collapse: (5) Stroke-like symptoms: (6) End stage renal disease: Plan 76-year-old female with history of remote intracranial hemorrhage, extensive cerebrovascular disease, chronic multifocal infarcts date, paroxysmal atrial fibrillation not anticoagulated, end-stage renal disease on hemodialysis, [facility] a syncopal episode, about 1 hour after hemodialysis session, occurring with associated agitation, drooling, change in speech. Has been hypotensive recently, hemodialysis currently on hold. Patient is modestly inattentive and encephalopathic this morning. She exhibits mild to moderate generalized weakness. She is nontremulous and does not exhibit any other abnormal movements. She has not exhibited any obvious signs of seizure activity. She has had extensive neuroimaging thus far including CT of the head, CT angiography of the head and neck, and brain MRI. She does have bilateral carotid plaque, with an 80% stenosis of the proximal left internal carotid artery and 50% stenosis of the proximal right ICA. No evidence of acute or subacute infarct on brain MRI. There is no objective evidence that the 80% stenosis of the left ICA is symptomatic at this time. Patient may have an element of dialysis disequilibrium syndrome, although with persistent encephalopathy, occurring in the context of chronic multi-infarct state and extensive cerebrovascular disease. I see that her levetiracetam level is slightly supratherapeutic. I do not think the level is high enough that it would adequately explain her encephalopathy. In looking at her Keppra regimen, it looks like she gets 1500 mg/day on days she is receiving hemodialysis, and 1000 mg/day on days without hemodialysis. Would reduce patient's dosage of Keppra to 1000 mg/day while her hemodialysis is on hold. Should be able to return to her regular regimen after hemodialysis is restarted. Review results of repeat Keppra level drawn earlier today, when available. No evidence of seizure activity on this morning's EEG. Again, the 80% stenosis of the proximal left internal carotid artery does not appear to be symptomatic at this time, given lack of acute or subacute findings on MRI that would suggest a stroke in this territory. Would not require surgical intervention. Could consider obtaining a consultation with vascular surgery if there are additional concerns regarding this stenotic lesion. Would recommend continued surveillance with periodic outpatient ultrasound. It is possible that patient's hypotension could have also contributed to her symptoms in light of the bilateral, left greater than right carotid stenosis. Continue medical management of patient's blood pressure. Again, hemodialysis currently on hold due to hypotension. Above management discussed with Dr. Gerber History of Present Illness Reason for Consultation: slurred speech, left ICA stenosis Requesting Physician: Dr. Gerber Attending Physician: Kimi Gerber MD History of Present Illness The patient is a 76-year-old female with a history of end-stage renal disease, on hemodialysis, history of intracranial hemorrhage, seizure disorder, who presented to the emergency department June 24, 2022 after a syncopal episode with associated agitation, drooling. There was no mention of any specific seizure-like activity in the admission record. She did have a CT of the head as well as CTA of the head and neck completed on June 28. The CT of the head is negative for hemorrhage or acute process, there is generalized atrophy and chronic cerebrovascular disease as well as multiple old scattered lacunar infarcts. CTA of the neck revealed extensive plaque within the bilateral common carotid and internal carotid arteries with an 80% stenosis of the proximal left internal carotid artery and 50% stenosis of the proximal right internal carotid artery. CTA of the head revealed moderate intracranial plaque. MRI of the brain negative for acute findings. There is chronic encephalomalacia within the cerebellar hemispheres and extensive chronic microvascular ischemic disease as well as old lacunar infarcts within the bilateral basal ganglia. I did independently review the images as well as the radiology reports pertaining to the above studies. The patient is an unreliable historian due to confusion. She has been seen by nephrology during this hospitalization regarding her end- stage renal disease, on hemodialysis. It was noted that her presenting episode of unresponsiveness occurred a few hours after returning from dialysis. It looks like her dialysis has been on hold due to ongoing hypertension in the context of her hospitalization. Her last inpatient dialysis session was . I see that the patient had a telestroke consultation with a specialist at [facility], on June 28, 2022 given her persistent confusion and slurred speech. Her previous CT angiogram and CT head results were reviewed at that time, again noting 80% stenosis of the left internal carotid artery. There was some concern regarding possible small infarct given patient history of atr ial fibrillation, only on aspirin, no anticoagulation given patient's history of intracranial hemorrhage. Recommendation was for brain MRI and EEG, maintain mean arterial pressure around 90. There was also some stated concern regarding the possibility of cerebral amyloid angiopathy with recommendation for maximum systolic blood pressure in the 140s. Again, patient did have the above brain MRI completed that was negative for acute or subacute infarct. The EEG is in the process of completion this morning. Dr. Gerber had apparently discussed this case with Dr. Caraballo yesterday who was covering the neurology service. I discussed the case with Dr. Gerber this morning as well. Allergies Allergy/AdvReac Type Severity Reaction Status Date / Time verapamil Allergy Unknown ON WINDY Verified 06/24/22 17:55 [facility] lisinopril AdvReac Intermediate COUGH Verified 06/24/22 17:55 Home Medications Medication Instructions Recorded Confirmed Type lidocaine-prilocaine 2.5 %-2.5 % 1 applic topical 3XWK 02/25/22 06/24/22 History topical cream allopurinol 300 mg tablet 450 mg PO DAILY #45 tabs 03/01/22 06/24/22 Rx aspirin 81 mg tablet,delayed 162 mg PO DAILY #30 tabs 03/01/22 06/24/22 Rx release atorvastatin 80 mg tablet 80 mg PO DAILY #30 tabs 03/01/22 06/24/22 Rx calcitriol 0.5 mcg capsule 0.5 mcg PO 3XWK #12 caps 03/01/22 06/24/22 Rx docusate sodium 100 mg capsule 200 mg PO DAILY #60 caps 03/01/22 06/24/22 Rx (Colace) glucosamine CMq-N1-Yonthdylo 1 tab PO DAILY #30 tabs 03/01/22 06/24/22 Rx rhiannon 1,500 mg-400 unit-100 mg tablet (Glucosamine Daily Complex) digoxin 125 mcg (0.125 mg) tablet 125 mcg PO 3XWK 06/24/22 06/24/22 History levetiracetam 500 mg tablet 500 mg PO 3XWK 06/24/22 06/24/22 History levetiracetam 500 mg tablet 500 mg PO 4XWK 06/24/22 06/24/22 History metoprolol succinate 25 mg 25 mg PO 4XWK 06/24/22 06/24/22 History tablet,extended release 24 hr nutritional supplements 1 ea PO DAILY 06/24/22 06/24/22 History Patient History Medical History Acromioclavicular joint separation Acute and chronic respiratory failure Atrial fibrillation CAD (coronary artery disease) "LEONA to LAD cath 2014 - moderate non obstructive disease" Carotid stenosis, bilateral Cerebral amyloid angiopathy ++cognitive impairment Clavicle fracture Closed left fibular fracture Contraindication to anticoagulation therapy Depression DM type 2 (diabetes mellitus, type 2) Dyslipidemia End stage renal disease Falls frequently Fracture, humerus GERD (gastroesophageal reflux disease) HTN (hypertension) IBS (irritable bowel syndrome) Nontraumatic intracerebral hemorrhage Palliative care encounter Pressure injury of back, unstageable Pulmonary hypertension assoc w/pulmonary Langerhans cell histiocytosis Pulmonary hypertension due to COPD Seizure disorder Surgical History AV fistula H/O sinus surgery History of total left knee replacement S/P cholecystectomy Social History Smoking Status: Never smoker Second Hand Exposure: Yes; Hx Alcohol Use: No Hx Substance Use: No Preferred Language: [place] Communication Ability: Unable Car Blocker Required: No Beliefs That Will Affect Care: None marital status: / Current Living Situation: Jail Current Living Situation Comment: lives alone Other Information That Helps Us Care for You: No Feels Safe at Home: Yes Safety Concerns: Feels Safe At This Time Assistive Devices: Oxygen - Continuous and Wheelchair Review of Systems Review of Systems: Unobtainable due to cognitive status Exam (Neuro) Physical Exam: Limited neurological examination due to altered mental status, reduced alertness. Patient is a well-developed, well-nourished elderly female. She is modestly lethargic and inattentive. She is oriented to person and hospital only. Concentration reduced. Limited speech although nondysarthric. Has intact comprehension, no aphasia. Normal comprehension of vocabulary. Visual dasilva grossly full to confrontation. Pupils equal round reactive to light. Ocular motility normal. Facial sensation normal. No gross facial droop. Hearing grossly intact. Tongue and palate move well and are midline. Shoulder shrug intact. Sensory examination difficult due to altered level of alertness and mental status although grossly intact for all 4 limbs. Deep tendon reflexes are diffusely diminished, plantar responses equivocal. Unable to adequately assess coordination, [id number], [id number], etc. due to poor patient co operation, perhaps generalized weakness and inattentiveness. Unable to perform direct ophthalmoscopic examination due to poor patient cooperation, no carotid bruits. Gait and station cannot be tested. Patient exhibits generalized weakness, again, in part due to reduced attention, poor patient cooperation. Muscle tone diffusely normal. No atrophy, no abnormal movements at this time. Results & Data ([facility]) Vital Signs (Past 12 Hours) Vital Signs Temp Pulse Pulse Pulse Resp BP Pulse Ox 06/30/22 07:43 102 H 06/30/22 07:22 36.4 C L 98 H 18 98/64 L 96 06/29/22 22:15 06/30/22 02:53 88 06/30/22 02:40 36.8 C 97 H 19 110/65 95 06/29/22 23:22 36.7 C 90 19 111/77 97 O2 Del Method O2 Flow Rate 06/30/22 07:43 06/30/22 07:22 Nasal Cannula 1 06/29/22 22:15 Nasal Cannula 3 06/30/22 02:53 06/30/22 02:40 Nasal Cannula 1 06/29/22 23:22 Nasal Cannula 1 Laboratory Results WBC 11.29, hemoglobin 9.1, hematocrit 29.0, MCV 103.2, platelet count 278, sodium 137, potassium 4.5, BUN 45, creatinine 5.04, glucose 109, calcium 9.6, AST 17, ALT 9, ammonia 45.0, triglycerides 157, cholesterol 113, LDL 57, VLDL 31, HDL 25, vitamin B12 655, folate 3.82, TSH 4.693, levetiracetam level from June 26 was 53.9. Level drawn today pending Diagnostic Findings CT of the head including CT angiography of the head and neck, and brain MRI are as described in the history of present illness, I independently reviewed these images. An electrocardiogram reveals atrial fibrillation with rapid ventricular response, heart rate 121 bpm. An echocardiogram completed May 05, 2022 revealed mildly to moderately reduced left ventricular systolic function, EF 40 to 45%, large sized apical, septal, and anteroseptal wall motion abnormality with hypokinesis/dyskinesis of the segments, severe biatrial enlargement An electroencephalogram completed this morning reveals a generalized encephalopathy of at least moderate severity. No epileptiform abnormalities. PG Care Time/CCT Total # of Minutes Spent Total Time Spent with Patient: Total time spent is greater than 50% in coordination of care (as documented) at patient's floor/unit and/or counseling patient: 90 minutes Coding Level of Care Code 66928 INT INP/OBS CARE 3/75MIN Diagnoses Encephalopathy G93.40 Carotid stenosis, bilateral I65.23 Seizure disorder G40.909 Syncope and collapse R55 Stroke-like symptoms R29.90 End stage renal disease N18.6
--- NOTE | 2022-06-30 10:48 | Electroencephalogram ---
EEG Procedure Note Date of Service June 30, 2022 Start / End Times Start Time: 9:41 AM End Time: 10:[address] Rudolph History Seizure disorder, delirium Home Medication List Medication Instructions Recorded Confirmed Type lidocaine-prilocaine 2.5 %-2.5 % 1 applic topical 3XWK 02/25/22 06/24/22 History topical cream allopurinol 300 mg tablet 450 mg PO DAILY #45 tabs 03/01/22 06/24/22 Rx aspirin 81 mg tablet,delayed 162 mg PO DAILY #30 tabs 03/01/22 06/24/22 Rx release atorvastatin 80 mg tablet 80 mg PO DAILY #30 tabs 03/01/22 06/24/22 Rx calcitriol 0.5 mcg capsule 0.5 mcg PO 3XWK #12 caps 03/01/22 06/24/22 Rx docusate sodium 100 mg capsule 200 mg PO DAILY #60 caps 03/01/22 06/24/22 Rx (Colace) glucosamine [id number] 1 tab PO DAILY #30 tabs 03/01/22 06/24/22 Rx rhiannon 1,500 mg-400 unit-100 mg tablet (Glucosamine Daily Complex) digoxin 125 mcg (0.125 mg) tablet 125 mcg PO 3XWK 06/24/22 06/24/22 History levetiracetam 500 mg tablet 500 mg PO 3XWK 06/24/22 06/24/22 History levetiracetam 500 mg tablet 500 mg PO 4XWK 06/24/22 06/24/22 History metoprolol succinate 25 mg 25 mg PO 4XWK 06/24/22 06/24/22 History tablet,extended release 24 hr nutritional supplements 1 ea PO DAILY 06/24/22 06/24/22 History Inpatient Medication List Acetaminophen (Acetaminophen 325 Mg Tab) 650 mg PO Q4H PRN PRN Reason: Pain or Fever Stop: 07/24/22 21:50 Last Admin: 06/28/22 02:10 Dose: 650 mg Documented By: Admin: 06/27/22 10:54 Dose: 650 mg Documented By: Admin: 06/26/22 00:18 Dose: 650 mg Documented By: NESSA Allopurinol (Allopurinol 300 Mg Tab) 450 mg PO DAILY [facility] Stop: 07/25/22 08:59 Last Admin: 06/30/22 10:27 Dose: Not Given Documented By: Admin: 06/29/22 10:11 Dose: 450 mg Documented By: Admin: 06/28/22 08:27 Dose: 450 mg Documented By: Admin: 06/27/22 09:00 Dose: 450 mg Documented By: Admin: 06/26/22 08:13 Dose: 450 mg Documented By: Admin: 06/25/22 09:09 Dose: 450 mg Documented By: HADLEY Aspirin (Aspirin 81 Mg Ectab) 162 mg PO DAILY [facility] Stop: 07/25/22 08:59 Last Admin: 06/30/22 10:27 Dose: Not Given Documented By: Admin: 06/29/22 10:07 Dose: 162 mg Documented By: Admin: 06/28/22 08:26 Dose: 162 mg Documented By: Admin: 06/27/22 08:59 Dose: 162 mg Documented By: Admin: 06/26/22 08:11 Dose: 162 mg Documented By: Admin: 06/25/22 09:11 Dose: 162 mg Documented By: HADLEY Atorvastatin Calcium (Atorvastatin 40 Mg Tab) 80 mg PO DAILY [facility] Stop: 07/25/22 08:59 Last Admin: 06/30/22 10:27 Dose: Not Given Documented By: Admin: 06/29/22 10:08 Dose: 80 mg Documented By: Admin: 06/28/22 08:26 Dose: 80 mg Documented By: Admin: 06/27/22 09:00 Dose: 80 mg Documented By: Admin: 06/26/22 08:12 Dose: 80 mg Documented By: Admin: 06/25/22 09:08 Dose: 80 mg Documented By: HADLEY Calcitriol (Calcitriol 0.25 Mcg Capsule) 0.5 mcg PO MoWeFr@1600 [facility] Stop: 07/24/22 21:50 Last Admin: 06/29/22 16:51 Dose: 0.5 mcg Documented By: Admin: 06/27/22 15:55 Dose: 0.5 mcg Documented By: Admin: 06/24/22 23:20 Dose: Not Given Documented By: NESSA Digoxin (Digoxin 0.125 Mg Tab) 0.125 mg PO MoWeFr@1600 [facility] Stop: 07/24/22 21:50 Last Admin: 06/29/22 16:51 Dose: 0.125 mg Documented By: Admin: 06/27/22 15:56 Dose: 0.125 mg Documented By: Admin: 06/24/22 23:05 Dose: 0.125 mg Documented By: NESSA Folic Acid (Folic Acid 1 Mg Tab) 1 mg PO QAM [facility] Stop: 07/30/22 08:59 Last Admin: 06/30/22 10:27 Dose: Not Given Documented By: Glucosamine Sulfate (Glucosamine Sulfate 500 Mg Cap) 500 mg PO DAILY [facility] Stop: 07/25/22 08:59 Last Admin: 06/30/22 10:27 Dose: Not Given Documented By: Admin: 06/29/22 10:11 Dose: 500 mg Documented By: Admin: 06/28/22 08:27 Dose: 500 mg Documented By: Admin: 06/27/22 09:00 Dose: 500 mg Documented By: Admin: 06/26/22 08:11 Dose: 500 mg Documented By: Admin: 06/25/22 09:10 Dose: 500 mg Documented By: HADLEY Promethazine HCl 6.25 mg/ (Sodium Chloride) 50.25 mls @ 201 mls/hr IV Q6H PRN PRN Reason: Nausea And Vomiting Stop: 07/24/22 21:50 Last Infusion: 06/26/22 17:59 Dose: 0 mls/hr Documented By: Admin: 06/26/22 17:44 Dose: 201 mls/hr Documented By: JOSHUA Levetiracetam 500 mg/ Sodium (Chloride) 105 mls @ 420 mls/hr IV M oWeFr@0600,1700,2100 [facility]; Protocol Stop: 07/29/22 06:29 Last Infusion: 06/29/22 20:34 Dose: 0 mls/hr Documented By: Admin: 06/29/22 20:15 Dose: 420 mls/hr Documented By: Infusion: 06/29/22 17:12 Dose: 0 mls/hr Documented By: Admin: 06/29/22 16:53 Dose: 420 mls/hr Documented By: Infusion: 06/29/22 09:46 Dose: 0 mls/hr Documented By: Admin: 06/29/22 07:39 Dose: 420 mls/hr Documented By: JESENIA Insulin Aspart (Insulin Aspart Per Unit) 0 units SC ACHS [facility] Stop: 07/24/22 21:50 Last Admin: 06/30/22 08:29 Dose: Not Given Documented By: Admin: 06/29/22 20:41 Dose: Not Given Documented By: Admin: 06/29/22 16:50 Dose: Not Given Documented By: Admin: 06/29/22 12:13 Dose: Not Given Documented By: Admin: 06/29/22 09:27 Dose: Not Given Documented By: Admin: 06/28/22 21:05 Dose: Not Given Documented By: Admin: 06/28/22 16:59 Dose: Not Given Documented By: Admin: 06/28/22 11:39 Dose: Not Given Documented By: Admin: 06/28/22 07:34 Dose: Not Given Documented By: Admin: 06/27/22 20:42 Dose: Not Given Documented By: Admin: 06/27/22 15:46 Dose: Not Given Documented By: Admin: 06/27/22 13:56 Dose: Not Given Documented By: Admin: 06/27/22 09:05 Dose: Not Given Documented By: Admin: 06/26/22 20:49 Dose: Not Given Documented By: NESSA Co-signed By: NABIL Admin: 06/26/22 16:55 Dose: Not Given Documented By: Admin: 06/26/22 11:46 Dose: Not Given Documented By: Admin: 06/26/22 08:13 Dose: Not Given Documented By: Admin: 06/25/22 20:37 Dose: Not Given Documented By: Admin: 06/25/22 18:32 Dose: Not Given Documented By: Admin: 06/25/22 12:29 Dose: 2 units Documented By: CORINNE Co-signed By: LULB Admin: 06/25/22 09:07 Dose: Not Given Documented By: Admin: 06/24/22 22:20 Dose: Not Given Documented By: NABIL Lactobacillus Acidophilus (Advanced Probiotic 1250 Mg Capsule) 2 cap PO DAILY [facility] Stop: 07/27/22 08:59 Last Admin: 06/30/22 10:27 Dose: Not Given Documented By: Admin: 06/29/22 10:07 Dose: 2 cap Documented By: Admin: 06/28/22 08:26 Dose: 2 cap Documented By: Admin: 06/27/22 09:02 Dose: 2 cap Documented By: KAVYA Levetiracetam (Levetiracetam 500 Mg Tab) 500 mg PO SuTuThSa@0900,2100 [facility] Stop: 07/25/22 08:59 Last Admin: 06/28/22 20:16 Dose: 500 mg Documented By: Admin: 06/28/22 08:28 Dose: 500 mg Documented By: Admin: 06/26/22 20:11 Dose: 500 mg Documented By: Admin: 06/26/22 08:11 Dose: 500 mg Documented By: Admin: 06/25/22 20:30 Dose: 500 mg Documented By: Admin: 06/25/22 09:08 Dose: 500 mg Documented By: HADLEY Levetiracetam (Levetiracetam 500 Mg Tab) 500 mg PO MoWeFr@0600,1700,2100 [facility] Stop: 07/24/22 21:50 Last Admin: 06/29/22 05:54 Dose: Not Given Documented By: Admin: 06/27/22 20:43 Dose: 500 mg Documented By: Admin: 06/27/22 16:00 Dose: 500 mg Documented By: Admin: 06/27/22 05:45 Dose: 500 mg Documented By: Admin: 06/24/22 23:05 Dose: 500 mg Documented By: NESSA Lidocaine/Prilocaine (Lidocaine/Prilocaine 2.5% Ea Crm) 1 each EXT MoWeFr@0700 [facility] Stop: 07/27/22 06:59 Last Admin: 06/29/22 16:16 Dose: Not Given Documented By: Admin: 06/27/22 14:39 Dose: Not Given Documented By: KAVYA Metoprolol Succinate (Metoprolol Succ 25mg Ext Rel Tab) 25 mg PO SuTuThSa@0900 [facility] Stop: 07/25/22 08:59 Last Admin: 06/30/22 08:39 Dose: Not Given Documented By: Admin: 06/28/22 08:27 Dose: Not Given Documented By: Admin: 06/26/22 09:25 Dose: Not Given Documented By: Admin: 06/25/22 09:12 Dose: Not Given Documented By: HADLEY Midodrine (Midodrine Hcl 2.5 Mg Tab) 5 mg PO TID@0800,1200,1700 [facility] Stop: 07/26/22 11:59 Last Admin: 06/30/22 10:27 Dose: Not Given Documented By: Admin: 06/29/22 16:54 Dose: 5 mg Documented By: Admin: 06/29/22 12:14 Dose: 5 mg Documented By: Admin: 06/29/22 10:06 Dose: 5 mg Documented By: Admin: 06/28/22 17:03 Dose: 5 mg Documented By: Admin: 06/28/22 12:40 Dose: 5 mg Documented By: Admin: 06/28/22 08:25 Dose: 5 mg Documented By: Admin: 06/27/22 16:00 Dose: 5 mg Documented By: Admin: 06/27/22 13:57 Dose: 5 mg Documented By: Admin: 06/27/22 08:59 Dose: 5 mg Documented By: Admin: 06/26/22 17:59 Dose: Not Given Documented By: Admin: 06/26/22 13:15 Dose: 5 mg Documented By: JOSHUA Discontinued Medications Docusate Sodium (Docusate Sodium 100 Mg Cap) 200 mg PO DAILY [facility] Stop: 07/25/22 08:59 Last Admin: 06/26/22 08:12 Dose: 200 mg Documented By: Admin: 06/25/22 09:11 Dose: Not Given Documented By: HADLEY Epoetin Bart (Epoetin Bart 10,000 Units/Ml Vial) 10,000 units IV ONE ONE Stop: 06/27/22 07:01 Last Admin: 06/27/22 11:57 Dose: 10,000 units Documented By: JOSEPH Heparin Sodium (Porcine) (Heparin Sod 5,000 Unit/0.5 Ml Vial) 5,000 units SQ Q8 [facility] Stop: 07/24/22 21:59 Last Admin: 06/24/22 23:19 Dose: Not Given Documented By: RH Heparin Sodium (Porcine) (Heparin Sod (Porcine) 1000 Unit/Ml) 2,000 units IV ONE ONE Stop: 06/27/22 07:01 Last Admin: 06/27/22 11:56 Dose: 2,000 units Documented By: JOSEPH Co-signed By: JOSHUA(2) Ceftriaxone Sodium (Rocephin) 2,000 mg in 70 mls @ 140 mls/hr IV NOW STA Stop: 06/24/22 18:51 Last Admin: 06/24/22 22:54 Dose: Not Given Documented By: NESSA Sodium Chloride (Nss 1000ml) 250 mls @ 999 mls/hr IV .Q16M ONE Stop: 06/24/22 19:22 Last Infusion: 06/24/22 19:26 Dose: 0 mls/hr Documented By: Admin: 06/24/22 19:10 Dose: 999 mls/hr Documented By: DANIEL Cefepime HCl (Maxipime) 2,000 mg in 20 mls @ 5 mls/min IV NOW STA; Protocol Stop: 06/24/22 19:24 Last Admin: 06/25/22 00:07 Dose: 5 mls/min Documented By: NESSA Magnesium Sulfate/Dextrose (Magnesium Sulfate / D5w) 1 gm in 100 mls @ 50 mls/hr IV Q2H [facility] Stop: 06/24/22 23:29 Last Infusion: 06/25/22 01:47 Dose: 0 mls/hr Documented By: Admin: 06/24/22 23:46 Dose: 50 mls/hr Documented By: Infusion: 06/24/22 23:46 Dose: 50 mls/hr Documented By: Admin: 06/24/22 22:19 Dose: 50 mls/hr Documented By: NABIL Dexamethasone 4 mg/ Syringe 1 mls @ 1 mls/min IV ONE ONE Stop: 06/24/22 19:23 Last Admin: 06/24/22 20:00 Dose: 1 mls/min Documented By: NABIL Albumin Human (Albumin 25% 100 Ml) 25 gm in 100 mls @ 50 mls/hr IV ONE ONE Stop: 06/24/22 21:23 Last Infusion: 06/24/22 23:07 Dose: 0 mls/hr Documented By: Admin: 06/24/22 21:00 Dose: 50 mls/hr Documented By: NABIL Cefepime HCl 1,000 mg/ Syringe 10 mls @ 5 mls/min IV Q24H [facility]; Protocol Stop: 07/05/22 20:59 Last Admin: 06/26/22 21:05 Dose: 5 mls/min Documented By: Admin: 06/25/22 20:29 Dose: 5 mls/min Documented By: NESSA Albumin Human (Albumin 25% 100 Ml) 25 gm in 100 mls @ 50 mls/hr IV ONE ONE Stop: 06/25/22 03:50 Last Infusion: 06/25/22 04:09 Dose: 0 mls/hr Documented By: Admin: 06/25/22 02:10 Dose: 50 mls/hr Documented By: NESSA Sodium Chloride (Nss) 500 mls @ 60 mls/hr IV .Q8H20M [facility] Stop: 06/29/22 03:04 Last Infusion: 06/29/22 04:30 Dose: 0 mls/hr Documented By: Admin: 06/28/22 20:08 Dose: 60 mls/hr Documented By: CASI Digoxin 125 mcg/ Syringe 10 mls @ 2 mls/min IV NOW ONE Stop: 06/29/22 06:21 Last Admin: 06/29/22 07:38 Dose: 2 mls/min Documented By: JESENIA Magnesium Sulfate/Dextrose (Magnesium Sulfate / D5w) 1 gm in 100 mls @ 50 mls/hr IV ONE ONE Stop: 06/29/22 08:25 Last Infusion: 06/29/22 10:57 Dose: 0 mls/hr Documented By: Admin: 06/29/22 08:01 Dose: 50 mls/hr Documented By: JESENIA Thiamine HCl 200 mg/ Sodium (Chloride) 52 mls @ 210 mls/hr IV NOW STA Stop: 06/29/22 21:48 Last Infusion: 06/29/22 22:13 Dose: 0 mls/hr Documented By: Admin: 06/29/22 21:51 Dose: 210 mls/hr Documented By: CASI Folic Acid 1 mg/ Syringe 10 mls @ 5 mls/min IV 0130 [facility] Stop: 06/30/22 02:00 Last Admin: 06/30/22 02:30 Dose: 5 mls/min Documented By: CASI Ioversol (Optiray 320 500ml) 118 ml IV ONCE ONE Stop: 06/24/22 17:07 Last Admin: 06/24/22 17:07 Dose: 118 ml Documented By: LUCIANO Ioversol (Optiray 320 500ml) 111 ml IV ONCE ONE Stop: 06/28/22 17:44 Last Admin: 06/28/22 17:44 Dose: 111 ml Documented By: SHA Midodrine (Midodrine Hcl 2.5 Mg Tab) 2.5 mg PO TID@0800,1200,1700 [facility] Stop: 07/25/22 01:54 Last Admin: 06/26/22 08:11 Dose: 2.5 mg Documented By: Admin: 06/25/22 18:31 Dose: 2.5 mg Documented By: Admin: 06/25/22 11:54 Dose: 2.5 mg Documented By: Admin: 06/25/22 09:07 Dose: 2.5 mg Documented By: Admin: 06/25/22 02:10 Dose: 2.5 mg Documented By: NESSA Olanzapine (Olanzapine 10 Mg/2.1 Ml Sdv) 2.5 mg IM NOW STA Stop: 06/28/22 19:32 Last Admin: 06/28/22 19:40 Dose: 2.5 mg Documented By: CASI Olanzapine (Olanzapine Zydis 5 Mg Orally Dis. Tab) 5 mg PO NOW STA Stop: 06/29/22 19:45 Last Admin: 06/29/22 20:15 Dose: 5 mg Documented By: CASI Ondansetron HCl (Ondansetron Inj 2 Mg/Ml 2 Ml Vial) 4 mg IV NOW STA Stop: 06/27/22 10:23 Last Admin: 06/27/22 10:52 Dose: 4 mg Documented By: BON Description This is a 21 electrode EEG with a single channel dedicated to limited EKG. The electrodes were placed in accordance with the International 10-20 system. The predominant rhythm consists of moderate amplitude generalized 3-1/2 to 4 Hz slowing that is fairly persistent throughout the entirety of the study. Photic stimulation unremarkable. Hyperventilation not performed. There is an intermittent symmetric frontal beta rhythm. There is no focal or lateralized slowing. There are no epileptiform abnormalities. There are no sleep changes. Interpretation Abnormal awake/drowsy EEG with evidence of a nonspecific encephalopathy of moderate severity. No epileptiform abnormalities. [facility] EEG Procedure Codes Indication for Procedure (1) Encephalopathy: (2) Seizure disorder: Neurology Neurology: 87325 EEG include record awake & drowsy
--- NOTE | 2022-06-30 12:40 | Palliative Care Progress Note ---
Date of Service June 30, 2022 Assessment & Plan (1) Palliative care encounter: Plan Patient's daughter has not responded to my call or reached out for more discussion about ACP or GOC. Palliative Medicine will sign off. We remain available for re involvement as needed. Patient not seen/no charge submitted. Rachell Swain DNP Clinical Director, Palliative Medicine Admission and Anticipated Discharge Date Admission Date: June 24, 2022 Results & Data ([facility]) Vital Signs (Past 12 Hours) Vital Signs Temp Pulse Pulse Pulse Resp BP Pulse Ox 06/30/22 10:39 36.8 C 74 19 106/71 99 06/30/22 07:43 102 H 06/30/22 07:22 36.4 C L 98 H 18 98/64 L 96 06/30/22 02:53 88 06/30/22 02:40 36.8 C 97 H 19 110/65 95 O2 Del Method O2 Flow Rate 06/30/22 10:39 Nasal Cannula 1 06/30/22 07:43 06/30/22 07:22 Nasal Cannula 1 06/30/22 02:53 06/30/22 02:40 Nasal Cannula 1 PG Care Time/CCT Total # of Minutes Spent Total Time Spent with Patient: Total time spent is greater than 50% in coordination of care (as documented) at patient's floor/unit and/or counseling patient: Coding Level of Care Code 28789 SUB INP/OBS CARE 2/35MIN Diagnoses Palliative care encounter Z51.5
--- NOTE | 2022-06-30 13:32 | Cardiology Progress Note ---
Date of Service June 30, 2022 Assessment & Plan Admission and Anticipated Discharge Date Admission Date: June 24, 2022 Results & Data ([facility]) Vital Signs (Past 12 Hours) Vital Signs Temp Pulse Pulse Pulse Resp BP Pulse Ox 06/30/22 10:39 36.8 C 74 19 106/71 99 06/30/22 07:43 102 H 06/30/22 07:22 36.4 C L 98 H 18 98/64 L 96 06/30/22 02:53 88 06/30/22 02:40 36.8 C 97 H 19 110/65 95 O2 Del Method O2 Flow Rate 06/30/22 10:39 Nasal Cannula 1 06/30/22 07:43 06/30/22 07:22 Nasal Cannula 1 06/30/22 02:53 06/30/22 02:40 Nasal Cannula 1
--- NOTE | 2022-06-30 13:34 | Cardiology Consultation ---
Date of Consultation June 30, 2022 Assessment & Plan (1) Encephalopathy: (2) Hypotension: (3) End stage renal disease: (4) Atrial fibrillation: Plan complex 76 year old female admitted for unresponsiveness/encephalopathy complicated by hypotension, ESRD, chronic respiratory failure. Cardiology was consulted to aid with afib management. Patient hypotensive since admission. Midodrine added and BP improving. She has not had dialysis since 06/27. On hold due to low BP. Metoprolol has been on hold due to hypotension, yet HR's are well controlled in the 70-80 bpm range currently Continue low dose digoxin. Last digoxin level 1.8 but with ESRD, will recheck with AM labs. anticoagulation contraindicated due to numerous reasons including - prior falls, cerebellar amyloid angiopathy, non-traumatic right posterior nontraumatic intracerebral ventricular hemorrhage complicated by seizure in March 2016 At this time, her HR is controlled. Acceptable to hold metoprolol due to hypotension. continue low dose digoxin. Would not recommend further cardiac testing. Case discussed with Dr. Grimes. Will follow. Supervising Physician Co-Signing Physician Notes I have reviewed the advance practitioner documentation and agree. I saw and evaluated the patient on the date of service referenced in the note and have performed a medically appropriate history and or exam. Agree with the plan as outlined. Digoxin is a reasonable choice at a low dose .given the patient's hypotension History of Present Illness Reason for Consultation: History of Afib; Hypotension Requesting Physician: Dr. Gerber Attending Physician: Dr. Grimes History of Present Illness Patient is a complex 76 year old female with complex history and multiple recent admissions per review of records. She was admitted to [facility] last week after being found unresponsive after dialysis session. She was hypotensive and tachycardic on arrival. there was question regarding sepsis secondary to UTI and started on antibiotic therapy. Unfortunately encephalopathy persisted. Neuro consulted for evaluation and no acute findings on MRI. She does have carotid stenosis, but this is a known chronic issues and likely not contributing. She has been hypotensive and dialysis not able to be performed given low BP. Last session on 06/27. She was started on midodrine with improved BP readings. Metoprolol has not been given due to low BP. She remains on low dose digoxin for afib and HR's have been well controlled per review of telemetry. She is not anticoagulated with chronic afib due to history of cerebral hemorrhage/amyloid angiopathy. At time of consult, patient resting in bed. Unable to answer questions. Does not awaken or respond to voice or name or gentle touch. Appears comfortable. History includes: ASCVD Status post drug eluting stent implantation to the left anterior descending artery. Last diagnostic cardiac catheterization transpired at [facility] on June 06, 2014 and demonstrated moderate nonobstructive coronary artery disease. Her vessels were noted to be quite large and tortuous, consistent with her history of hypertension. Chronic diastolic/right heart failure. Chronic atrial fibrillation Contraindications to anticoagulation, cerebelar amyloid angiopathy. Cerebelar amyloid angiopathy. 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 Chart history of severe COPD Nocturnal hypoxemia Unspecified sleep apnea Obesity Hypertension Hyperlipidemia. Chronic kidney disease, initiation of hemodialysis on 07/07/2016 Type II diabetes mellitus Chronic gouty arthropathy GERD Osteoarthritis with lumbar spine stenosis Depression and anxiety. Hospitalization to [facility] in September 2019 with a left parietal cerebrovascular accident. MR the brain demonstrated small foci of restricted water diffusion in the left parietal periventricular white matter consistent with acute to subacute infarct. TPA was not recommended due to patient's improving symptoms. CTA of the neck showed 60% stenosis of the right carotid bulb and a 70% stenosis in the left internal carotid artery. Vascular surgery was consulted. No surgery recommended. Neurology recommended avoiding dual anti-platelet therapy and anticoagulation due to history of cerebral hemorrhage/amyloid angiopathy. Allergies Allergy/AdvReac Type Severity Reaction Status Date / Time verapamil Allergy Unknown ON WINDY Verified 06/24/22 17:55 [facility] lisinopril AdvReac Intermediate COUGH Verified 06/24/22 17:55 Home Medications Medication Instructions Recorded Confirmed Type lidocaine-prilocaine 2.5 %-2.5 % 1 applic topical 3XWK 02/25/22 06/24/22 History topical cream allopurinol 300 mg tablet 450 mg PO DAILY #45 tabs 03/01/22 06/24/22 Rx aspirin 81 mg tablet,delayed 162 mg PO DAILY #30 tabs 03/01/22 06/24/22 Rx release atorvastatin 80 mg tablet 80 mg PO DAILY #30 tabs 03/01/22 06/24/22 Rx calcitriol 0.5 mcg capsule 0.5 mcg PO 3XWK #12 caps 03/01/22 06/24/22 Rx docusate sodium 100 mg capsule 200 mg PO DAILY #60 caps 03/01/22 06/24/22 Rx (Colace) glucosamine [id number] 1 tab PO DAILY #30 tabs 03/01/22 06/24/22 Rx rhiannon 1,500 mg-400 unit-100 mg tablet (Glucosamine Daily Complex) digoxin 125 mcg (0.125 mg) tablet 125 mcg PO 3XWK 06/24/22 06/24/22 History levetiracetam 500 mg tablet 500 mg PO 3XWK 06/24/22 06/24/22 History levetiracetam 500 mg tablet 500 mg PO 4XWK 06/24/22 06/24/22 History metoprolol succinate 25 mg 25 mg PO 4XWK 06/24/22 06/24/22 History tablet,extended release 24 hr nutritional supplements 1 ea PO DAILY 06/24/22 06/24/22 History Patient History Medical History Acromioclavicular joint separation Acute and chronic respiratory failure Atrial fibrillation CAD (coronary artery disease) "LEONA to LAD cath 2015 - moderate non obstructive disease" Carotid stenosis, bilateral Cerebral amyloid angiopathy ++cognitive impairment Clavicle fracture Closed left fibular fracture Contraindication to anticoagulation therapy Depression DM type 2 (diabetes mellitus, type 2) Dyslipidemia End stage renal disease Falls frequently Fracture, humerus GERD (gastroesophageal reflux disease) HTN (hypertension) IBS (irritable bowel syndrome) Nontraumatic intracerebral hemorrhage Palliative care encounter Pressure injury of back, unstageable Pulmonary hypertension assoc w/pulmonary Langerhans cell histiocytosis Pulmonary hypertension due to COPD Seizure disorder Surgical History AV fistula H/O sinus surgery History of total left knee replacement S/P cholecystectomy Social History Smoking Status: Never smoker Second Hand Exposure: Yes; Hx Alcohol Use: No Hx Substance Use: No Preferred Language: Greenlandic Communication Ability: Unable 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 Beliefs That Will Affect Care: None marital status: / Current Living Situation: Longterm Current Living Situation Comment: lives alone Other Information That Helps Us Care for You: No Feels Safe at Home: Yes Safety Concerns: Feels Safe At This Time Assistive Devices: Oxygen - Continuous and Wheelchair Review of Systems Review of Systems: Unobtainable due to cognitive status Physical Exam Constitutional: WD/WN, vitals as above no acute distress Respiratory: normal respiratory effort, lungs clear to auscultation Cardiovascular: Rate/Rhythm: + irregularly irregular Heart Sounds: normal S1 and normal S2; no murmur Vessels: no JVD Extremities: no edema Gastrointestinal (Abdomen): normal bowel sounds, soft, nontender, no hepatosplenomegaly Results & Data ([facility]) Vital Signs (Past 12 Hours) Vital Signs Temp Pulse Pulse Pulse Resp BP Pulse Ox 06/30/22 10:39 36.8 C 74 19 106/71 99 06/30/22 07:43 102 H 06/30/22 07:22 36.4 C L 98 H 18 98/64 L 96 06/30/22 02:53 88 06/30/22 02:40 36.8 C 97 H 19 110/65 95 O2 Del Method O2 Flow Rate 06/30/22 10:39 Nasal Cannula 1 06/30/22 07:43 06/30/22 07:22 Nasal Cannula 1 06/30/22 02:53 06/30/22 02:40 Nasal Cannula 1 Laboratory Results Cardiac Enzymes 06/30/22 Range/Units 06:49 AST 17 (13-39) U/L CBC 06/30/22 Range/Units 06:49 WBC 11.29 H (4.8-10.8) K/ul RBC 2.81 L (4.20-5.40) M/uL Hgb 9.1 L (12.0-16.0) g/dl Hct 29.0 L (37.0-47.0) % Plt Count 278 (130-400) K/uL Neut # (Auto) 7.59 H (1.40-6.50) K/uL Lymph # (Auto) 1.71 (1.2-3.4) K/uL Logan # (Auto) 1.16 H (0.11-0.59) K/uL Eos # (Auto) 0.32 (0-0.50) K/uL Baso # (Auto) 0.12 (0-0.2) K/uL Comprehensive Metabolic Panel 06/30/22 Range/Units 06:49 Sodium 137 (136-145) mmol/L Potassium 4.5 (3.5-5.1) mmol/L Chloride 99 (98-107) mmol/L Carbon Dioxide 28 (21-32) mmol/L BUN 45 H (6-23) mg/dl Creatinine 5.04 H* D (0.6-1.2) mg/dl Glucose 109 H (70-99(Fasting)) mg/dl Calcium 9.6 (8.5-10.1) mg/dl AST 17 (13-39) U/L ALT 9 (7-52) U/L Alkaline Phosphatase 72 (34-104) U/L Total Protein 5.5 L (6.0-8.3) gm/dl Albumin 2.9 L (3.4-5.0) gm/dl Intake and Output 06/29/22 06/30/22 06/30/22 22:59 06:59 14:59 Intake Total 562 / 1007 240 / 1007 Balance 562 / 1007 240 / 1007 Intake: IV 262 / 467 Thiamine HCl 200 mg In Sodium 52 / 52 Chloride 0.9% 50 ml @ 210 mls/ hr IV NOW [facility] Rx#:[id number] levETIRAcetam 500 mg In 0.9 % 210 / 315 Sodium Chloride 100 ml @ 420 mls/hr IV MoWeFr@0600,1700,2100 [facility] Rx#:[id number] Oral 300 / 540 240 / 540 Other: Other Intake Source vanilla boost vanilla boost Weight 73.1 kg Weight Measurement Method Built in [facility] Diagnostic Findings Telemetry: Atrial fibrillation with controlled ventricular rates chest xray dated 06/29 IMPRESSION: 1. Cardiomegaly and mild pulmonary edema. No evidence of consolidative opacity to suggest aspiration. 2. Trace right pleural effusion. echo report reviewed dated 05/05/22: LVEF mild to moderately reduced at 40-45% Mild Severe biatrial enlargement mild MR Severe TR elevated pulm pressures at 75 mmHg Medications Administered Current Inpatient Medications Acetaminophen (Acetaminophen 325 Mg Tab) 650 mg PO Q4H PRN PRN Reason: Pain or Fever Stop: 07/24/22 21:50 Last Admin: 06/28/22 02:10 Dose: 650 mg Allopurinol (Allopurinol 300 Mg Tab) 450 mg PO DAILY [facility] Stop: 07/25/22 08:59 Last Admin: 06/30/22 10:27 Dose: Not Given Aspirin (Aspirin 81 Mg Ectab) 162 mg PO DAILY [facility] Stop: 07/25/22 08:59 Last Admin: 06/30/22 10:27 Dose: Not Given Atorvastatin Calcium (Atorvastatin 40 Mg Tab) 80 mg PO DAILY [facility] Stop: 07/25/22 08:59 Last Admin: 06/30/22 10:27 Dose: Not Given Calcitriol (Calcitriol 0.25 Mcg Capsule) 0.5 mcg PO MoWeFr@1600 [facility] Stop: 07/24/22 21:50 Last Admin: 06/29/22 16:51 Dose: 0.5 mcg Dextrose (Dextrose 50% 50 Ml Syringe) 25 - 50 ml IV UD PRN; Protocol PRN Reason: Hypoglycemia Protocol Stop: 07/24/22 21:50 Digoxin (Digoxin 0.125 Mg Tab) 0.125 mg PO MoWeFr@1600 [facility] Stop: 07/24/22 21:50 Last Admin: 06/29/22 16:51 Dose: 0.125 mg Folic Acid (Folic Acid 1 Mg Tab) 1 mg PO QAM [facility] Stop: 07/30/22 08:59 Last Admin: 06/30/22 10:27 Dose: Not Given Glucagon (Glucagon For Inj 1 Mg Vial) 1 mg SQ UD PRN; Protocol PRN Reason: Hypoglycemia Protocol Stop: 07/24/22 21:50 Glucosamine Sulfate (Glucosamine Sulfate 500 Mg Cap) 500 mg PO DAILY [facility] Stop: 07/25/22 08:59 Last Admin: 06/30/22 10:27 Dose: Not Given Glucose (Glucose 10 Tab/Tube) 4 - 8 tab PO UD PRN; Protocol PRN Reason: Hypoglycemia Treatment Stop: 07/24/22 21:50 Glucose (Glucose 40% Gel 15 Gm Tube) 15 - 30 gm PO UD PRN; Protocol PRN Reason: Hypoglycemia Protocol Stop: 07/24/22 21:50 Promethazine HCl 6.25 mg/ (Sodium Chloride) 50.25 mls @ 201 mls/hr IV Q6H PRN PRN Reason: Nausea And Vomiting Stop: 07/24/22 21:50 Last Infusion: 06/26/22 17:59 Dose: Infused Levetiracetam 500 mg/ Sodium (Chloride) 105 mls @ 420 mls/hr IV MoWeFr@0600,1700,2100 [facility]; Protocol Stop: 07/29/22 06:29 Last Infusion: 06/29/22 20:34 Dose: Infused Levetiracetam 500 mg/ Sodium (Chloride) 105 mls @ 420 mls/hr IV SuTuThSa@0900,2100 [facility]; Protocol Stop: 07/30/22 08:59 Insulin Aspart (Insulin Aspart Per Unit) 0 units SC ACHS [facility] Stop: 07/24/22 21:50 Last Admin: 06/30/22 12:10 Dose: Not Given Lactobacillus Acidophilus (Advanced Probiotic 1250 Mg Capsule) 2 cap PO DAILY [facility] Stop: 07/27/22 08:59 Last Admin: 06/30/22 10:27 Dose: Not Given Levetiracetam (Levetiracetam 500 Mg Tab) 500 mg PO SuTuThSa@0900,2100 [facility] Stop: 07/25/22 08:59 Last Admin: 06/28/22 20:16 Dose: 500 mg Levetiracetam (Levetiracetam 500 Mg Tab) 500 mg PO MoWeFr@0600,1700,2100 [facility] Stop: 07/24/22 21:50 Last Admin: 06/29/22 05:54 Dose: Not Given Lidocaine/Prilocaine (Lidocaine/Prilocaine 2.5% Ea Crm) 1 each EXT MoWeFr@0700 [facility] Stop: 07/27/22 06:59 Last Admin: 06/29/22 16:16 Dose: Not Given Metoprolol Succinate (Metoprolol Succ 25mg Ext Rel Tab) 25 mg PO SuTuThSa@0900 [facility] Stop: 07/25/22 08:59 Last Admin: 06/30/22 08:39 Dose: Not Given Midodrine (Midodrine Hcl 2.5 Mg Tab) 5 mg PO TID@0800,1200,1700 [facility] Stop: 07/26/22 11:59 Last Admin: 06/30/22 11:57 Dose: 5 mg Miscellaneous (Carbohydrates For Hypoglycemia ) 15 - 30 gm PO UD PRN PRN Reason: Hypoglycemia Protocol Stop: 07/24/22 21:50 (4) Atrial fibrillation Atrial fibrillation type: permanent Qualified Code(s): I48.21 - Permanent atrial fibrillation
--- NOTE | 2022-06-30 17:30 | Hospitalist Progress Note ---
Date of Service June 30, 2022 Assessment & Plan (1) Unresponsiveness: Plan: Syncope secondary to Hypotension Most likely due to hypotension (SBP in 70s on admission) Started midodrine 5mg PO TID with improved BP AM cortisol normal blood cultures negative History of multiple readmissions for similar Altered mental status, likely secondary to delirium vs metabolic encephalopathy Multifactorial: Hospital delirium, metabolic encephalopathy 06/28 was noted to have worsening confusion and slurred speech so stroke alert was called CT head negative for acute findings. CTA head/neck shows 80% left ICA stenosis and 50% right ICA stenosis. MRI lobo negative for acute stroke. EEG 06/30 shows moderate encephalopathy but no epileptiform waves ABG unremarkable Folate low (repletion started) B12 normal RPR negative Keppra mildly supratherapeutic (dose adjusted to 500mg BID) Ammonia not elevated but review of CT A/P from 2021 shows nodularity of liver consistent with cirrhosis--> daughter is unaware of this. If ongoing encephalopathy, can consider trial of lactulose 06/29 evening received 5mg olanzapine for agitation--> avoid sedating medications if possible Chronic A fib Patient not on anticoagulation secondary to history ICH, history of cerebral amyloid angiopathy continue low dose digoxin Appreciate Cardiology input, holding metoprolol hx COPD/nocturnal hypoxemia/pulm hypertension, oxygenation stable --At baseline 3 L of oxygen via nasal cannula hx chronic systolic heart failure --fluid status managed by dialysis hx CAD sp stenting valvular heart disease (severe TR, mild /MR ) -stable currently Other chronic conditions: history of recurrent CVA hyperlipidemia on statin Rx 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 start SQ heparin, thrombocytopenia has resolved Disposition pending-Will likely need SNF PT/OT evaluation Daughter present at bedside, updated on care plan. All questions were answered Admission and Anticipated Discharge Date Admission Date: June 24, 2022 Subjective Remains confused, drowsy Unable to receive her pills this morning, but appears she got her afternoon midodrine Physical Exam Physical Exam: drowsy, difficulty staying awake Respiratory: breathing comfortably, no wheezing/rhonchi/rales Cardiovascular: irregular but not rapid, no murmurs/rubs/gallops Gastrointestinal (Abdomen): soft, non tender Musculoskeletal: No edema Neurologic: confused, lethargic (but arousable), unable to follow commands, unable to answer questions Results & Data Results & Data ([facility]) Vital Signs (Past 12 Hours) Vital Signs Temp Pulse Pulse Resp BP Pulse Ox O2 Del Method 06/30/22 07:45 Nasal Cannula 06/30/22 15:22 81 06/30/22 15:15 36.9 C 99 H 18 96/62 L 98 Nasal Cannula 06/30/22 10:39 36.8 C 74 19 106/71 99 Nasal Cannula 06/30/22 07:43 102 H 06/30/22 07:22 36.4 C L 98 H 18 98/64 L 96 Nasal Cannula O2 Flow Rate 06/30/22 07:45 1 06/30/22 15:22 06/30/22 15:15 1 06/30/22 10:39 1 06/30/22 07:43 06/30/22 07:22 1
[2022-06-30] MEDS: HEPARIN SOD 5,000 UNIT/0.5 ML VIAL SQ SCH (20:29)
[2022-06-30] MEDS: levETIRAcetam 500 MG in 0.9 % SODIUM CHLORIDE 100 ML IV SCH (21:06)
[2022-07-01 06:26] LABS: Basophils # (auto) 0.11 K/uL (0-0.2); Basophils % (auto) 0.9 %; Eosinophils # (auto) 0.34 K/uL (0-0.50); Eosinophils % (auto) 2.7 %; Hematocrit (blood only) 27.8 % (37.0-47.0); Hemoglobin 8.8 g/dl (12.0-16.0); Immature Granulocytes # (auto) 0.31 K/uL (0.01-0.20); Immature Granulocytes % (auto) 2.5 %; Lymphocytes # (auto) 1.98 K/uL (1.2-3.4); Lymphocytes % (auto) 15.7 %; Mean Corpuscular Hemoglobin 32.8 pg (25.0-34.0); Mean Corpuscular Hgb Conc 31.7 g/dL (32.0-36.0); Mean Corpuscular Volume 103.7 fL (80.0-100.0); Mean Platelet Volume 11.8 fL (9.4-12.4); Monocytes # (auto) 1.08 K/uL (0.11-0.59); Monocytes % (auto) 8.6 %; Neutrophils # (auto) 8.77 K/uL (1.40-6.50); Neutrophils % (auto) 69.6 %; Nucleated RBC # (auto) 0.28 K/uL (0-0.12); Nucleated RBC % (auto) 2.2 %; Platelet Count 264 K/uL (130-400); RDW Coefficient of Variation 16.9 % (11.5-14.5); RDW Standard Deviation 63.3 fL (36.4-46.3); Red Blood Count 2.68 M/uL (4.20-5.40); White Blood Count 12.59 K/ul (4.8-10.8)
[2022-07-01 06:50] LABS: Ovalocytes 1+
[2022-07-01 06:55] LABS: Albumin Globulin Ratio 1.1 (0.9-2); Albumin Level 2.9 gm/dl (3.4-5.0); Bilirubin,Total 0.4 mg/dl (0.2-1.0); Calcium 9.6 mg/dl (8.5-10.1); Creatinine Clr Calc Pharmacy 7.6 ml/min; Est GFR (African American) 7.2 ml/min; Est GFR (Non-African American) 6.2 ml/min; Globulin 2.6 gm/dl (2.5-4.0); Potassium 4.4 mmol/L (3.5-5.1); Total Protein 5.5 gm/dl (6.0-8.3)
[2022-07-01] MEDS: ADVANCED PROBIOTIC 1250 MG CAPSULE PO SCH (08:09)
[2022-07-01] MEDS: allopurinoL 300 MG TAB PO SCH (08:09)
[2022-07-01] MEDS: MIDODRINE HCL 2.5 MG TAB PO SCH ×3 (08:10→16:24)
[2022-07-01] MEDS: ASPIRIN 81 MG ECTAB PO SCH (08:10)
[2022-07-01] MEDS: GLUCOSAMINE SULFATE 500 MG CAP PO SCH (08:11)
[2022-07-01] MEDS: ATORVASTATIN 40 MG TAB PO SCH (08:11)
[2022-07-01] MEDS: HEPARIN SOD 5,000 UNIT/0.5 ML VIAL SQ SCH ×2 (08:16→20:06)
[2022-07-01] MEDS: INSULIN ASPART PER UNIT CHARGE SC SCH ×4 (08:22→20:30)
[2022-07-01] MEDS: FOLIC ACID 1 MG in SYRINGE 9.8 ML IV SCH (08:23)
[2022-07-01] MEDS: levETIRAcetam 500 MG in 0.9 % SODIUM CHLORIDE 100 ML IV SCH ×2 (08:26→20:02)
[2022-07-01] MEDS ORDERED: HEPARIN SOD (PORCINE) 1000 UNIT/ML IV ONE (08:33)
[2022-07-01] MEDS ORDERED: EPOETIN ALFA 10,000 UNITS/ML VIAL IV ONE (08:33)
[2022-07-01] MEDS ORDERED: SODIUM CHLORIDE 0.9% 1000ML 1,000 ML IV PRN (08:33)
[2022-07-01] MEDS ORDERED: MIDODRINE HCL 2.5 MG TAB PO ONE (08:36)
[2022-07-01] MEDS: LIDOCAINE/PRILOCAINE 2.5% EA CRM EXT SCH (09:08)
--- NOTE | 2022-07-01 09:47 | Cardiology Progress Note ---
Date of Service July 01, 2022 Assessment & Plan (1) Encephalopathy: (2) Hypotension: (3) End stage renal disease: (4) Atrial fibrillation: Plan Complex 76 year old female admitted for unresponsiveness/encephalopathy complicated by hypotension, ESRD, chronic respiratory failure. Cardiology was consulted to aid with afib management. Patient has been hypotensive since admission. Midodrine added and BP improving. Dialysis was on hold. Metoprolol has been on hold due to hypotension and HR's are well controlled She has been on low dose digoxin for rate control. However since she has not received dialysis in many days with rising creatinine, digoxin level elevated this morning. hold digoxin. EKG without acute changes. No ventricular arrhythmias on telemetry. Her reduced consciousness predates elevated digoxin level. Her cognitive state is actually better this morning, so would not be considered dig toxic. 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 Acceptable to hold metoprolol due to hypotension. Hold digoxin. resume low dose metoprolol as able/BP allows. Would not recommend further cardiac testing. Discussed with Dr. Grimes. Will sign off. Please call cardiopulmonary technologist chief chief unit forester with additional questions/concerns. Admission and Anticipated Discharge Date Admission Date: June 24, 2022 Supervising Physician Co-Signing Physician Notes I have reviewed the advance practitioner documentation and agree. I saw and evaluated the patient on the date of service referenced in the note and have performed a medically appropriate history and or exam. Agree with the plan as outlined. We will sign off please reconsult if necessary. Subjective Patient evaluated during dialysis. More awake/alert today. Answers some questions appropriately. Denies chest pain, dizziness, nausea/vomiting, SOB. No edema. Review of Systems Review of Systems: Other (limited ROS due to cognitive state) Physical Exam Constitutional: WD/WN, vitals as above no acute distress Respiratory: normal respiratory effort, lungs clear to auscultation Cardiovascular: Rate/Rhythm: + irregularly irregular Heart Sounds: normal S1 and normal S2; no murmur Vessels: no JVD Extremities: no edema Gastrointestinal (Abdomen): normal bowel sounds, soft, nontender, no hepatosplenomegaly Skin: no rashes, warm and dry Results & Data ([facility]) Vital Signs (Past 12 Hours) Vital Signs Temp Pulse Pulse Resp BP BP Pulse Ox 07/01/22 09:30 81 99/60 L 07/01/22 09:14 90 106/70 07/01/22 09:03 37 C 96 H 07/01/22 07:08 37.1 C 77 16 97/57 L 99 07/01/22 03:24 36.7 C 64 20 97/47 L 98 06/30/22 21:59 94 H 06/30/22 23:14 36.5 C 84 16 94/63 L 96 O2 Del Method O2 Flow Rate 07/01/22 09:30 07/01/22 09:14 07/01/22 09:03 07/01/22 07:08 Oxymask 3 07/01/22 03:24 Nasal Cannula 2 06/30/22 21:59 06/30/22 23:14 Nasal Cannula 2 Laboratory Results Cardiac Enzymes 07/01/22 Range/Units 05:40 AST 14 (13-39) U/L CBC 07/01/22 Range/Units 05:40 WBC 12.59 H (4.8-10.8) K/ul RBC 2.68 L (4.20-5.40) M/uL Hgb 8.8 L (12.0-16.0) g/dl Hct 27.8 L (37.0-47.0) % Plt Count 264 (130-400) K/uL Neut # (Auto) 8.77 H (1.40-6.50) K/uL Lymph # (Auto) 1.98 (1.2-3.4) K/uL [place] # (Auto) 1.08 H (0.11-0.59) K/uL Eos # (Auto) 0.34 (0-0.50) K/uL Baso # (Auto) 0.11 (0-0.2) K/uL Comprehensive Metabolic Panel 07/01/22 Range/Units 05:40 Sodium 138 (136-145) mmol/L Potassium 4.4 (3.5-5.1) mmol/L Chloride 99 (98-107) mmol/L Carbon Dioxide 29 (21-32) mmol/L BUN 60 H (6-23) mg/dl Creatinine 5.99 H* D (0.6-1.2) mg/dl Glucose 95 (70-99(Fasting)) mg/dl Calcium 9.6 (8.5-10.1) mg/dl AST 14 (13-39) U/L ALT 8 (7-52) U/L Alkaline Phosphatase 66 (34-104) U/L Total Protein 5.5 L (6.0-8.3) gm/dl Albumin 2.9 L (3.4-5.0) gm/dl Intake and Output 06/30/22 07/01/22 07/01/22 22:59 06:59 14:59 Intake Total 105 / 105 Balance 105 / 105 Intake: IV 105 / 105 levETIRAcetam 500 mg In 0.9 % 105 / 105 Sodium Chloride 100 ml @ 420 mls/hr IV Q12H [facility] Rx#:[id number] Other: Other Intake Source sips FEED Weight 73.1 kg 74.2 kg 74.2 kg Weight Measurement Method [facility] Patient Weight 07/02/22 06:59 Weight 74.2 kg Diagnostic Findings Telemetry reviewed: Atrial fibrillation with controlled rates in the 80-90's. Medications Administered Current Inpatient Medications Acetaminophen (Acetaminophen 325 Mg Tab) 650 mg PO Q4H PRN PRN Reason: Pain or Fever Stop: 07/24/22 21:50 Last Admin: 06/28/22 02:10 Dose: 650 mg Allopurinol (Allopurinol 300 Mg Tab) 450 mg PO DAILY [facility] Stop: 07/25/22 08:59 Last Admin: 07/01/22 08:09 Dose: 450 mg Aspirin (Aspirin 81 Mg Ectab) 162 mg PO DAILY [facility] Stop: 07/25/22 08:59 Last Admin: 07/01/22 08:10 Dose: 162 mg Atorvastatin Calcium (Atorvastatin 40 Mg Tab) 80 mg PO DAILY [facility] Stop: 07/25/22 08:59 Last Admin: 07/01/22 08:11 Dose: 80 mg Calcitriol (Calcitriol 0.25 Mcg Capsule) 0.5 mcg PO MoWeFr@1600 [facility] Stop: 07/24/22 21:50 Last Admin: 06/29/22 16:51 Dose: 0.5 mcg Dextrose (Dextrose 50% 50 Ml Syringe) 25 - 50 ml IV UD PRN; Protocol PRN Reason: Hypoglycemia Protocol Stop: 07/24/22 21:50 Digoxin (Digoxin 0.125 Mg Tab) 0.125 mg PO MoWeFr@1600 [facility] Stop: 07/24/22 21:50 Last Admin: 06/29/22 16:51 Dose: 0.125 mg Folic Acid (Folic Acid 1 Mg Tab) 1 mg PO QAM [facility] Stop: 07/30/22 08:59 Last Admin: 06/30/22 10:27 Dose: Not Given Glucagon (Glucagon For Inj 1 Mg Vial) 1 mg SQ UD PRN; Protocol PRN Reason: Hypoglycemia Protocol Stop: 07/24/22 21:50 Glucosamine Sulfate (Glucosamine Sulfate 500 Mg Cap) 500 mg PO DAILY [facility] Stop: 07/25/22 08:59 Last Admin: 07/01/22 08:11 Dose: 500 mg Glucose (Glucose 10 Tab/Tube) 4 - 8 tab PO UD PRN; Protocol PRN Reason: Hypoglycemia Treatment Stop: 07/24/22 21:50 Glucose (Glucose 40% Gel 15 Gm Tube) 15 - 30 gm PO UD PRN; Protocol PRN Reason: Hypoglycemia Protocol Stop: 07/24/22 21:50 Heparin Sodium (Porcine) (Heparin Sod 5,000 Unit/0.5 Ml Vial) 5,000 units SQ Q12 [facility] Stop: 07/30/22 20:59 Last Admin: 07/01/22 08:16 Dose: 5,000 units Promethazine HCl 6.25 mg/ (Sodium Chloride) 50.25 mls @ 201 mls/hr IV Q6H PRN PRN Reason: Nausea And Vomiting Stop: 07/24/22 21:50 Last Infusion: 06/26/22 17:59 Dose: Infused Levetiracetam 500 mg/ Sodium (Chloride) 105 mls @ 420 mls/hr IV Q12H [facility] Stop: 07/30/22 20:59 Last Infusion: 07/01/22 09:13 Dose: Infused Folic Acid 1 mg/ Syringe 10 mls @ 5 mls/min IV QAM [facility] Stop: 07/05/22 09:01 Last Admin: 07/01/22 08:23 Dose: 5 mls/min Sodium Chloride (Nss 1000ml) 1,000 mls @ 0 mls/hr IV .Q0M PRN PRN Reason: For Hemodialysis Use ONLY Stop: 07/01/22 14:32 Insulin Aspart (Insulin Aspart Per Unit) 0 units SC ACHS [facility] Stop: 07/24/22 21:50 Last Admin: 07/01/22 08:22 Dose: Not Given Lactobacillus Acidophilus (Advanced Probiotic 1250 Mg Capsule) 2 cap PO DAILY [facility] Stop: 07/27/22 08:59 Last Admin: 07/01/22 08:09 Dose: 2 cap Levetiracetam (Levetiracetam 500 Mg Tab) 500 mg PO SuTuThSa@0900,2100 [facility] Stop: 07/25/22 08:59 Last Admin: 06/28/22 20:16 Dose: 500 mg Levetiracetam (Levetiracetam 500 Mg Tab) 500 mg PO MoWeFr@0600,1700,2100 [facility] Stop: 07/24/22 21:50 Last Admin: 06/29/22 05:54 Dose: Not Given Lidocaine/Prilocaine (Lidocaine/Prilocaine 2.5% Ea Crm) 1 each EXT MoWeFr@0700 [facility] Stop: 07/27/22 06:59 Last Admin: 07/01/22 09:08 Dose: Not Given Midodrine (Midodrine Hcl 2.5 Mg Tab) 5 mg PO TID@0800,1200,1700 [facility] Stop: 07/26/22 11:59 Last Admin: 07/01/22 08:10 Dose: 5 mg Miscellaneous (Carbohydrates For Hypoglycemia ) 15 - 30 gm PO UD PRN PRN Reason: Hypoglycemia Protocol Stop: 07/24/22 21:50 (4) Atrial fibrillation Atrial fibrillation type: permanent Qualified Code(s): I48.21 - Permanent atrial fibrillation
--- NOTE | 2022-07-01 11:13 | Nephrology Progress Note ---
Date of Service July 01, 2022 Assessment & Plan (1) Hypotension: Plan: ongoing hypotension despite holding HD -last TTE in May w/ new/large wall motion abnormality and newly decreased left ventricular systolic function. Question given ongoing and quite signifi cant hypotension if it is worth repeating this study for any changes in cardiac function or progression in left ventricular dysfunction Continue midodrine 5 mg 3 times daily. Patient will receive an extra 5 mg on dialysis days (2) End stage renal disease: Plan: ESRD on dialysis Monday. Her last outpatient dialysis was on 06/24/2022. Her most recent inpatient dialysis was June 27, 2022. patient admitted after episode of unresponsiveness occurring a few hours after returning from dialysis. Electrolytes are stable and no signs of volume overload. No indication for dialysis. UF Limited by hypotension; obligate BB d/t HR > Patient tolerating well dialysis today. Target UF of 2 L (3) Acute on chronic respiratory failure with hypoxemia: Plan: Patient is on oxygen 1-2L nasal cannula currently. Monitor and titrate oxygen for FiO2 above 92. Admission and Anticipated Discharge Date Admission Date: June 24, 2022 Subjective Seen for ESRD. She denies any pain or shortness of breath. Patient was seen and examined while on dialysis Review of Systems Review of Systems: All other systems were reviewed and negative except as noted in HPI Physical Exam Physical Exam: General exam: Appears comfortable, no acute distress HEENT: Pupils are equal and reactive to light Neck: No JVD, neck is supple trachea is midline Respiratory system: Clear breath sounds bilaterally. Gastrointestinal: Abdomen is soft, non distended, non tender, bowel sounds are present CVS: Regular rate and rhythm. No murmurs, rubs or gallops Musculoskeletal: No joint or muscle tenderness Extremities: Non tender, no edema, peripheral pulses are present Neuro: Oriented, no tremors, no focal neurological deficits Skin: No rashes Results & Data ([facility]) Vital Signs (Past 12 Hours) Vital Signs Temp Pulse Pulse Resp BP BP Pulse Ox 07/01/22 10:07 78 07/01/22 11:00 90 98/61 L 07/01/22 10:30 92 H 102/58 L 07/01/22 10:00 95 H 106/61 07/01/22 09:30 81 99/60 L 07/01/22 09:14 90 106/70 07/01/22 09:03 37 C 96 H 07/01/22 07:08 37.1 C 77 16 97/57 L 99 07/01/22 03:24 36.7 C 64 20 97/47 L 98 06/30/22 23:14 36.5 C 84 16 94/63 L 96 O2 Del Method O2 Flow Rate 07/01/22 10:07 07/01/22 11:00 07/01/22 10:30 07/01/22 10:00 07/01/22 09:30 07/01/22 09:14 07/01/22 09:03 07/01/22 07:08 Oxymask 3 07/01/22 03:24 Nasal Cannula 2 06/30/22 23:14 Nasal Cannula 2 Laboratory Results 07/01/22 05:40 07/01/22 07/01/22 05:40 05:40 WBC 12.59 H RBC 2.68 L MCV 103.7 H MCH 32.8 MCHC 31.7 L RDW Std Deviation 63.3 H RDW Coeff of [place]in 16.9 H Plt Count 264 MPV 11.8 Albumin 2.9 L
--- NOTE | 2022-07-01 11:49 | Electrocardiogram Report ---
Test Reason : Blood Pressure : / mmHG Vent. Rate : 100 BPM Atrial Rate : 258 BPM P-R Int : 000 ms QRS Dur : 086 ms QT Int : 312 ms P-R-T Axes : 000 -53 038 degrees QTc Int : 402 ms Poor data quality, interpretation may be adversely affected Atrial fibrillation Left axis deviation Abnormal ECG When compared with ECG of 24-JUN-2022 17:14, ST less depressed in Inferior leads Confirmed by Alan Her ([id number]) on 07/01/2022 11:48:56 AM Referred By: REFERRED SELF Confirmed By:Alan Her
[2022-07-01] MEDS: CALCITRIOL 0.25 MCG CAPSULE PO SCH (16:23)
--- NOTE | 2022-07-01 19:43 | Hospitalist Progress Note ---
Date of Service July 01, 2022 Assessment & Plan (1) Unresponsiveness: Plan: Syncope secondary to Hypotension Most likely due to hypotension (SBP in 70s on admission) Started midodrine 5mg PO TID with improved BP AM cortisol normal blood cultures negative History of multiple readmissions for similar Altered mental status, likely secondary to delirium vs metabolic encephalopathy Multifactorial: Hospital delirium, metabolic encephalopathy 06/28 was noted to have worsening confusion and slurred speech so stroke alert was called CT head negative for acute findings. CTA head/neck shows 80% left ICA stenosis and 50% right ICA stenosis. MRI lobo negative for acute stroke. EEG 06/30 shows moderate encephalopathy but no epileptiform waves ABG unremarkable Folate low (repletion started) B12 normal RPR negative Keppra mildly supratherapeutic (dose adjusted to 500mg BID) Ammonia not elevated but review of CT A/P from 2021 shows nodularity of liver consistent with cirrhosis--> daughter is unaware of this. If ongoing encephalopathy, can consider trial of lactulose 06/28 evening 06/29 evening received olanzapine for agitation--> avoid sedating medications if possible Chronic A fib Patient not on anticoagulation secondary to history ICH, history of cerebral amyloid angiopathy was previously on digoxin which was held today due to elevated level (her confusion predated this elevation, prior digoxin levels were within range) Appreciate Cardiology input, holding metoprolol hx COPD/nocturnal hypoxemia/pulm hypertension, oxygenation stable --At baseline 3 L of oxygen via nasal cannula hx chronic systolic heart failure --fluid status managed by dialysis hx CAD sp stenting valvular heart disease (severe TR, mild /MR ) -stable currently Seizure -home regime: keppra 500mg BID. Extra 500mg on dialysis days (MWF) after dialysis -while she is not getting dialysis consistently, will be on Keppra 500mg BID. Keppra level was mildly above range but per Neurology not enough to explain her confusion. Repeat level is pending. 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 SQ heparin Disposition pending-Will likely need SNF PT/OT evaluation Family updated on care plan Admission and Anticipated Discharge Date Admission Date: June 24, 2022 Subjective More awake today. Did not get any sedating medications last night, was not agitated Today had dialysis which she tolerated Physical Exam Physical Exam: awake, alert, answering questions, pleasant and comfortable Respiratory: breathing comfortably, no wheezing/rhonchi Cardiovascular: irregular but not rapid, no murmurs/rubs Gastrointestinal (Abdomen): soft, non tender Musculoskeletal: no edema Neurologic: AAO x 2 (knows she is in the hospital, thinks it is 1996, recognizes her grand daughter), moving all 4 extremities with prompting, answers simple questions appropriately Results & Data Results & Data ([facility]) Vital Signs (Past 12 Hours) Vital Signs Temp Pulse Pulse Resp BP BP Pulse Ox 07/01/22 17:34 81 07/01/22 15:58 37.9 C H 70 20 94/57 L 97 07/01/22 10:07 78 07/01/22 12:48 36.5 C 95 H 105/59 L 07/01/22 12:30 91 H 94/60 L 07/01/22 12:00 93 H 109/78 07/01/22 11:30 127 H 105/70 07/01/22 11:00 90 98/61 L 07/01/22 10:30 92 H 102/58 L 07/01/22 10:00 95 H 106/61 07/01/22 09:30 81 99/60 L 07/01/22 09:14 90 106/70 07/01/22 09:03 37 C 96 H O2 Del Method O2 Flow Rate 07/01/22 17:34 07/01/22 15:58 Nasal Cannula 3 07/01/22 10:07 07/01/22 12:48 07/01/22 12:30 07/01/22 12:00 07/01/22 11:30 07/01/22 11:00 07/01/22 10:30 07/01/22 10:00 07/01/22 09:30 07/01/22 09:14 07/01/22 09:03
[2022-07-02] MEDS ORDERED: HALOPERIDOL LACTATE 5 MG/ML 1 ML VIAL IM STA (00:18)
[2022-07-02] MEDS: ASPIRIN 81 MG ECTAB PO SCH (07:53)
[2022-07-02] MEDS: ADVANCED PROBIOTIC 1250 MG CAPSULE PO SCH (07:53)
[2022-07-02] MEDS: allopurinoL 300 MG TAB PO SCH (07:53)
[2022-07-02] MEDS: ATORVASTATIN 40 MG TAB PO SCH (07:55)
[2022-07-02] MEDS: GLUCOSAMINE SULFATE 500 MG CAP PO SCH (07:55)
[2022-07-02] MEDS: MIDODRINE HCL 2.5 MG TAB PO SCH ×3 (07:55→17:06)
[2022-07-02] MEDS: FOLIC ACID 1 MG in SYRINGE 9.8 ML IV SCH (08:02)
[2022-07-02] MEDS: levETIRAcetam 500 MG in 0.9 % SODIUM CHLORIDE 100 ML IV SCH ×2 (09:03→21:18)
[2022-07-02] MEDS: HEPARIN SOD 5,000 UNIT/0.5 ML VIAL SQ SCH ×2 (09:06→20:46)
[2022-07-02] MEDS: INSULIN ASPART PER UNIT CHARGE SC SCH ×2 (09:06→12:58)
[2022-07-02] MEDS: ACETAMINOPHEN 325 MG TAB PO PRN (10:11)
--- NOTE | 2022-07-02 10:56 | Nephrology Progress Note ---
Date of Service July 02, 2022 Assessment & Plan (1) Hypotension: Plan: ongoing hypotension despite holding HD -last TTE in May w/ new/large wall motion abnormality and newly decreased left ventricular systolic function. Blood pressure is stable today Continue midodrine 5 mg 3 times daily. Patient will receive an extra 5 mg on dialysis days (2) End stage renal disease: Plan: ESRD on dialysis Monday. Her last outpatient dialysis was on 06/24/2022. Her most recent inpatient dialysis was June 27, 2022. patient admitted after episode of unresponsiveness occurring a few hours after returning from dialysis. Electrolytes are stable and no signs of volume overload. No indication for dialysis. UF Limited by hypotension; obligate BB d/t HR > Patient tolerated well dialysis yesterday with net UF of 2 L -Patient will be on twice weekly dialysis Monday and Monday given multiple comorbidities and current hypertension (3) Acute on chronic respiratory failure with hypoxemia: Plan: Patient is on oxygen 1-2L nasal cannula currently. Monitor and titrate oxygen for FiO2 above 92. Admission and Anticipated Discharge Date Admission Date: June 24, 2022 Subjective Seen for ESRD. No shortness of breath. She had dialysis yesterday Review of Systems Review of Systems: All other systems were reviewed and negative except as noted in HPI Physical Exam Physical Exam: General exam: Appears comfortable, no acute distress HEENT: Pupils are equal and reactive to light Neck: No JVD, neck is supple trachea is midline Respiratory system: Clear breath sounds bilaterally. Gastrointestinal: Abdomen is soft, non distended, non tender, bowel sounds are present CVS: Regular rate and rhythm. No murmurs, rubs or gallops Musculoskeletal: No joint or muscle tenderness Extremities: Non tender, no edema, peripheral pulses are present Neuro: Oriented, no tremors, no focal neurological deficits Skin: No rashes Results & Data ([facility]) Vital Signs (Past 12 Hours) Vital Signs Temp Pulse Pulse Pulse Resp BP Pulse Ox 07/02/22 07:30 07/02/22 07:32 36.3 C L 70 16 113/71 99 07/02/22 07:31 93 H 07/02/22 02:22 36.4 C L 93 H 18 115/71 98 07/01/22 23:00 36.4 C L 85 20 117/88 94 O2 Del Method O2 Flow Rate 07/02/22 07:30 Nasal Cannula 07/02/22 07:32 Nasal Cannula 3 07/02/22 07:31 07/02/22 02:22 Nasal Cannula 3 07/01/22 23:00 Nasal Cannula 2 Laboratory Results 07/01/22 05:40
[2022-07-02] MEDS: LIDOCAINE 5% 1 PATCH TD SCH ×2 (13:04→13:05)
--- NOTE | 2022-07-02 17:51 | Hospitalist Progress Note ---
Date of Service July 02, 2022 Assessment & Plan (1) Unresponsiveness: Plan: Syncope secondary to Hypotension Most likely due to hypotension (SBP in 70s on admission) Started midodrine 5mg PO TID with improved BP AM cortisol normal blood cultures negative History of multiple readmissions for similar Altered mental status, likely secondary to delirium vs metabolic encephalopathy Multifactorial: Hospital delirium, metabolic encephalopathy 06/28 was noted to have worsening confusion and slurred speech so stroke alert was called CT head negative for acute findings. CTA head/neck shows 80% left ICA stenosis and 50% right ICA stenosis. MRI lobo negative for acute stroke. EEG 06/30 shows moderate encephalopathy but no epileptiform waves ABG unremarkable Folate low (repletion started) B12 normal RPR negative Keppra mildly supratherapeutic (dose adjusted to 500mg BID) Ammonia not elevated but review of CT A/P from 2021 shows nodularity of liver consistent with cirrhosis--> daughter is unaware of this. If ongoing encephalopathy, can consider trial of lactulose 06/28 evening 06/29 evening received olanzapine for agitation--> avoid sedating medications if possible 07/01 evening received Haldol 0.5mg IM Chronic A fib Patient not on anticoagulation secondary to history ICH, history of cerebral amyloid angiopathy was previously on digoxin which was held yesterday due to elevated level (her confusion predated this elevation, prior digoxin levels were within range). Resume digoxin 125mcg on dialysis days (previously was MWF, but per Nephrology it appears they will be moving towards MF dialysis schedule, so will change digoxin to MF dosing) Appreciate Cardiology input, holding metoprolol hx COPD/nocturnal hypoxemia/pulm hypertension, oxygenation stable --At baseline 3 L of oxygen via nasal cannula hx chronic systolic heart failure --fluid status managed by dialysis hx CAD sp stenting valvular heart disease (severe TR, mild /MR ) -stable currently Seizure -home regime: keppra 500mg BID. Extra 500mg on dialysis days (MWF) after dialysis -while she is not getting dialysis consistently, will be on Keppra 500mg BID. Keppra level was mildly above range but per Neurology not enough to explain her confusion. Repeat level is pending. ESRD on HD -Managed per Nephrology. previously MWF schedule now appears to be on MF schedule. 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 SQ heparin Disposition pending-Will likely need SNF PT/OT evaluation Admission and Anticipated Discharge Date Admission Date: June 24, 2022 Subjective Overnight received haldol 0.5mg IM Today somewhat drowsy but not lethargic Poor appetite, not eating much No specific complaints currently Physical Exam Physical Exam: Drowsy, non toxic, no acute distress ENMT: Mucous membrane dry Respiratory: Breathing comfortably on NC, no cough, no wheezing Cardiovascular: irregular but not rapid, no murmurs/rubs Gastrointestinal (Abdomen): soft, non tender, non distended Musculoskeletal: no edema Neurologic: drowsy but arousable, diffusely weak but moving arms Results & Data Results & Data ([facility]) Vital Signs (Past 12 Hours) Vital Signs Temp Pulse Pulse Resp BP Pulse Ox O2 Del Method 07/02/22 15:25 100 H 07/02/22 15:23 37.3 C 90 16 112/65 98 Nasal Cannula 07/02/22 11:33 37.6 C H 90 16 118/74 92 Nasal Cannula 07/02/22 07:30 Nasal Cannula 07/02/22 07:32 36.3 C L 70 16 113/71 99 Nasal Cannula 07/02/22 07:31 93 H O2 Flow Rate 07/02/22 15:25 07/02/22 15:23 2 07/02/22 11:33 2 07/02/22 07:30 07/02/22 07:32 3 07/02/22 07:31
[2022-07-02] MEDS ORDERED: MoRPHine SULFATE 2 MG/ML CARP IV STA (20:26)
[2022-07-03 05:58] LABS: Basophils # (auto) 0.13 K/uL (0-0.2); Basophils % (auto) 0.9 %; Eosinophils # (auto) 0.22 K/uL (0-0.50); Eosinophils % (auto) 1.4 %; Hematocrit (blood only) 29.3 % (37.0-47.0); Hemoglobin 9.3 g/dl (12.0-16.0); Immature Granulocytes # (auto) 0.66 K/uL (0.01-0.20); Immature Granulocytes % (auto) 4.3 %; Lymphocytes # (auto) 2.34 K/uL (1.2-3.4); Lymphocytes % (auto) 15.3 %; Mean Corpuscular Hemoglobin 33.6 pg (25.0-34.0); Mean Corpuscular Hgb Conc 31.7 g/dL (32.0-36.0); Mean Corpuscular Volume 105.8 fL (80.0-100.0); Mean Platelet Volume 11.4 fL (9.4-12.4); Monocytes # (auto) 1.51 K/uL (0.11-0.59); Monocytes % (auto) 9.9 %; Neutrophils # (auto) 10.43 K/uL (1.40-6.50); Neutrophils % (auto) 68.2 %; Nucleated RBC # (auto) 1.21 K/uL (0-0.12); Nucleated RBC % (auto) 7.9 %; Platelet Count 258 K/uL (130-400); RDW Coefficient of Variation 17.6 % (11.5-14.5); RDW Standard Deviation 65.1 fL (36.4-46.3); Red Blood Count 2.77 M/uL (4.20-5.40); White Blood Count 15.29 K/ul (4.8-10.8)
[2022-07-03 06:22] LABS: Ovalocytes 1+; Polychromasia 1+
[2022-07-03 06:23] LABS: Albumin Globulin Ratio 1.1 (0.9-2); Albumin Level 3.1 gm/dl (3.4-5.0); BUN Creatinine Ratio 12.5 (10-20); Bilirubin,Total 0.5 mg/dl (0.2-1.0); Calcium 9.6 mg/dl (8.5-10.1); Creatinine Clr Calc Pharmacy 10.4 ml/min; Est GFR (African American) 10.4 ml/min; Globulin 2.7 gm/dl (2.5-4.0); Total Protein 5.8 gm/dl (6.0-8.3)
[2022-07-03] MEDS: ADVANCED PROBIOTIC 1250 MG CAPSULE PO SCH (07:53)
[2022-07-03] MEDS: allopurinoL 300 MG TAB PO SCH (07:53)
[2022-07-03] MEDS: ATORVASTATIN 40 MG TAB PO SCH (07:54)
[2022-07-03] MEDS: ASPIRIN 81 MG ECTAB PO SCH (07:55)
[2022-07-03] MEDS: MIDODRINE HCL 2.5 MG TAB PO SCH ×4 (07:55→16:26)
[2022-07-03] MEDS: GLUCOSAMINE SULFATE 500 MG CAP PO SCH (07:56)
[2022-07-03] MEDS: FOLIC ACID 1 MG in SYRINGE 9.8 ML IV SCH (08:07)
[2022-07-03] MEDS: levETIRAcetam 500 MG in 0.9 % SODIUM CHLORIDE 100 ML IV SCH ×2 (08:28→20:23)
[2022-07-03] MEDS: HEPARIN SOD 5,000 UNIT/0.5 ML VIAL SQ SCH ×2 (08:49→20:22)
[2022-07-03] MEDS: LIDOCAINE 5% 1 PATCH TD SCH ×2 (08:51)
--- NOTE | 2022-07-03 13:06 | Hospitalist Progress Note ---
Date of Service July 03, 2022 Assessment & Plan (1) Unresponsiveness: Plan: per Dr. Gerber's notes with addendum: ff up for syncope, delirium, etc Syncope secondary to Hypotension Most likely due to hypotension (SBP in 70s on admission) Started midodrine 5mg PO TID with improved BP AM cortisol normal blood cultures negative History of multiple readmissions for similar 07/03 BP stable overall continue Midodrine 5mg TID Altered mental status, likely secondary to delirium vs metabolic encephalopathy Multifactorial: Hospital delirium, metabolic encephalopathy 06/28 was noted to have worsening confusion and slurred speech so stroke alert was called CT head negative for acute findings. CTA head/neck shows 80% left ICA stenosis and 50% right ICA stenosis. MRI lobo negative for acute stroke. EEG 06/30 shows moderate encephalopathy but no epileptiform waves ABG unremarkable Folate low (repletion started) B12 normal RPR negative Keppra mildly supratherapeutic (dose adjusted to 500mg BID) Ammonia not elevated but review of CT A/P from 2021 shows nodularity of liver consistent with cirrhosis--> daughter is unaware of this. If ongoing encephalopathy, can consider trial of lactulose 06/28 evening 06/29 evening received olanzapine for agitation--> avoid sedating medications if possible 07/01 evening received Haldol 0.5mg IM 07/03 seems to be improving oriented x 2 today monitor closely Chronic A fib Patient not on anticoagulation secondary to history ICH, history of cerebral amyloid angiopathy was previously on digoxin which was held yesterday due to elevated level (her confusion predated this elevation, prior digoxin levels were within range). Resume digoxin 125mcg on dialysis days (previously was MWF, but per Nephrology it appears they will be moving towards MF dialysis schedule, so will change digoxin to MF dosing) Appreciate Cardiology input, holding metoprolol hx COPD/nocturnal hypoxemia/pulm hypertension, oxygenation stable --At baseline 3 L of oxygen via nasal cannula hx chronic systolic heart failure --fluid status managed by dialysis hx CAD sp stenting valvular heart disease (severe TR, mild /MR ) -stable currently Seizure -home regime: keppra 500mg BID. Extra 500mg on dialysis days (MWF) after dialysis -while she is not getting dialysis consistently, will be on Keppra 500mg BID. Keppra level was mildly above range but per Neurology not enough to explain her confusion. Repeat level is pending. ESRD on HD -Managed per Nephrology. previously MWF schedule now appears to be on MF schedule. 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 no other symptoms Review of Systems Review of Systems: all noted and negative except for above Physical Exam Physical Exam: General- oriented x 2, not in distress, speaks in sentences with no effort or accessory muscle use weak Eyes- anicteric Neck- no JVD Lungs- clear breath sounds bilaterally, no rales/wheezes Heart- normal rate, regular rhythm; no murmurs Abdomen- normal bowel sounds, nondistended, soft, nontender Extremities- no pretibial edema, no calf tenderness Neuro- alert, oriented x 2; no new gross focal neurologic deficits Skin- warm & dry Results & Data Results & Data ([facility]) Vital Signs (Past 12 Hours) Vital Signs Temp Pulse Pulse Resp BP Pulse Ox O2 Del Method 07/03/22 12:00 36.7 C 84 16 130/80 98 Room Air 07/03/22 08:00 36.8 C 94 H 16 142/89 H 97 Nasal Cannula 07/03/22 07:06 98 H O2 Flow Rate 07/03/22 12:00 07/03/22 08:00 2 07/03/22 07:06 all noted and reviewed including below
[2022-07-03] MEDS: TRIMETHOPRIM/POLYMYXIN B OP SCH ×2 (17:18→20:22)
[2022-07-03] MEDS ORDERED: MoRPHine SULFATE 2 MG/ML CARP IV STA (19:58)
[2022-07-04] MEDS: MIDODRINE HCL 2.5 MG TAB PO SCH ×3 (08:04→16:32)
[2022-07-04] MEDS: allopurinoL 300 MG TAB PO SCH (08:05)
[2022-07-04] MEDS: ASPIRIN 81 MG ECTAB PO SCH (08:06)
[2022-07-04] MEDS: ATORVASTATIN 40 MG TAB PO SCH (08:06)
[2022-07-04] MEDS: GLUCOSAMINE SULFATE 500 MG CAP PO SCH (08:07)
[2022-07-04] MEDS: HEPARIN SOD 5,000 UNIT/0.5 ML VIAL SQ SCH ×2 (08:07→20:09)
[2022-07-04] MEDS: ADVANCED PROBIOTIC 1250 MG CAPSULE PO SCH (08:07)
[2022-07-04] MEDS: LIDOCAINE 5% 1 PATCH TD SCH ×2 (08:08→08:09)
[2022-07-04] MEDS: TRIMETHOPRIM/POLYMYXIN B OP SCH ×4 (08:09→20:10)
[2022-07-04] MEDS: FOLIC ACID 1 MG in SYRINGE 9.8 ML IV SCH (08:13)
[2022-07-04] MEDS: LIDOCAINE/PRILOCAINE 2.5% EA CRM EXT SCH (08:55)
[2022-07-04] MEDS ORDERED: HEPARIN SOD (PORCINE) 1000 UNIT/ML IV ONE (09:16)
[2022-07-04] MEDS ORDERED: SODIUM CHLORIDE 0.9% 1000ML 1,000 ML IV PRN (09:16)
--- NOTE | 2022-07-04 10:59 | Psychiatric Consultation ---
Date of Consultation July 04, 2022 Impression / Recommendations Impression Sharron is a 76 yo old woman with multiple co-morbid medical conditions presenting with worsening confusion diagnostically consistent with encephalopathy/delirium possibly superimposed on dementia with sundowning in the evenings before bed. Since she has not required IM medications for agitation since 07/01/2022 and given her already significant metabolic and cardiac risk profile would attempt to start with melatonin to help with sleep and delirium. If ineffective low dose mirtazapine could be trialed to help with sleep (and some small evidence this can help with agitation in dementia at bedtime/sundowning). Overall, I spent a total of 45 minutes with this case including review of chart records, review of labwork, review of EKG QTc, direct evaluation of the patient at bedside, discussion of the patient with the Nurse and with the hospitalist provider, discussion with the psychiatric liason during clinical rounds, and documentation in the electronic health record. (1) Encephalopathy: (2) Insomnia: Plan -Would start melatonin 3mg HS for insomnia, if ineffective consider mirtazapine 7.5mg HS for insomnia -If agitation increases and sleep issues persist would instead use seroquel 12.5mg HS (could be used in addition to melatonin, but do not use concurrently with mirtazapine) -Continue medical workup to rule out and treat any underlying causes contributing to potential delirium, avoid or limit use of deliriogenic medications (benzodiazepines, opioids, anticholinergics) -Continue with delirium prevention measures: raising blinds during the day, closing at night, frequent re-orientation, contact with family/friends, explaining procedures/nursing care measures prior to physical contact, correct any hearing and visual impairments -For behavioral emergency: olanzapine 2.5 mg IM x 1 (DO NOT exceed 10mg per 24 hours, check EKG if IM dose required, NEVER co-administer with IM or IV benzodiazepines). Psych History Identifying Data 76 yo woman with multiple significant medical co-morbidities including CKD on dialysis, CHF, hx multiple prior CVAs with seizures, CAD admitted medically after episode of unresponsiveness. Psychiatry consulted for recommendations for worsening confusion at night. Chief Complaint mute History of Present Illness Sharron is being managed for multiple chronic medical conditions, new episode of unresponsiveness felt to be due to hypotension and now with worsening delirium. Given history of multiple prior CVAs unclear what her cognitive baseline is and if any mild cognitive impairment or sundowning is present outside of acutely worsened confusion in the hospital. Earlier in her admission she required multiple IM doses of medications for acute agitation but has not requiring anything since 07/01/2022. Last night she was confused and calling out to the nurses asking for something to help with sleep. She also was making sounds suggesting possible pain so was given morphine 2mg IV x1. This morning she remains very somnolent and is mute on my attempt to talk with her in dialysis. Per the hand finisher she has been lethargic all morning and did not seem aware of needle pricks and has not interacted at all with anyone throughout the morning. Allergies Allergy/AdvReac Type Severity Reaction Status Date / Time verapamil Allergy Unknown ON WINDY Verified 06/24/22 17:55 [facility] MED LIST lisinopril AdvReac Intermediate COUGH Verified 06/24/22 17:55 Home Medications Medication Instructions Recorded Confirmed Type lidocaine-prilocaine 2.5 %-2.5 % 1 applic topical 3XWK 02/25/22 06/24/22 History topical cream allopurinol 300 mg tablet 450 mg PO DAILY #45 tabs 03/01/22 06/24/22 Rx aspirin 81 mg tablet,delayed 162 mg PO DAILY #30 tabs 03/01/22 06/24/22 Rx release atorvastatin 80 mg tablet 80 mg PO DAILY #30 tabs 03/01/22 06/24/22 Rx calcitriol 0.5 mcg capsule 0.5 mcg PO 3XWK #12 caps 03/01/22 06/24/22 Rx docusate sodium 100 mg capsule 200 mg PO DAILY #60 caps 03/01/22 06/24/22 Rx (Colace) glucosamine [id number] 1 tab PO DAILY #30 tabs 03/01/22 06/24/22 Rx rhiannon 1,500 mg-400 unit-100 mg tablet (Glucosamine Daily Complex) digoxin 125 mcg (0.125 mg) tablet 125 mcg PO 3XWK 06/24/22 06/24/22 History levetiracetam 500 mg tablet 500 mg PO 3XWK 06/24/22 06/24/22 History levetiracetam 500 mg tablet 500 mg PO 4XWK 06/24/22 06/24/22 History metoprolol succinate 25 mg 25 mg PO 4XWK 06/24/22 06/24/22 History tablet,extended release 24 hr nutritional supplements 1 ea PO DAILY 06/24/22 06/24/22 History Patient History Medical History Acromioclavicular joint separation Acute and chronic respiratory failure Atrial fibrillation CAD (coronary artery disease) "LEONA to LAD cath 2015 - moderate non obstructive disease" Carotid stenosis, bilateral Cerebral amyloid angiopathy ++cognitive impairment Clavicle fracture Closed left fibular fracture Contraindication to anticoagulation therapy Depression DM type 2 (diabetes mellitus, type 2) Dyslipidemia End stage renal disease Falls frequently Fracture, humerus GERD (gastroesophageal reflux disease) HTN (hypertension) IBS (irritable bowel syndrome) Nontraumatic intracerebral hemorrhage Palliative care encounter Pressure injury of back, unstageable Pulmonary hypertension assoc w/pulmonary Langerhans cell histiocytosis Pulmonary hypertension due to COPD Seizure disorder Surgical History AV fistula H/O sinus surgery History of total left knee replacement S/P cholecystectomy Social History Smoking Status: Never smoker Second Hand Exposure: Yes; Hx Alcohol Use: No Hx Substance Use: No Preferred Language: Estonian Communication Ability: Unable 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 Required: No Beliefs That Will Affect Care: None marital status: / Current Living Situation: Care Home Current Living Situation Comment: lives alone Other Information That Helps Us Care for You: No Feels Safe at Home: Yes Safety Concerns: Feels Safe At This Time Assistive Devices: Oxygen - Continuous and Wheelchair Physical Exam Psychiatric: Apperance: appropriately dressed and appeared stated age Eye Contact: + poor eye contact Motor Behavior: no abnormal motor movements Speech: + mute Affect: + constricted affect Vital Signs (Past 24 Hours): Last Vital Signs Temp 36.5 C 07/04/22 09:21 Pulse 94 H 07/04/22 10:30 Resp 18 07/04/22 07:12 BP 101/57 L 07/04/22 10:30 Pulse Ox 96 07/04/22 07:12 O2 Del Method Nasal Cannula 07/04/22 08:00 O2 Flow Rate 3 07/04/22 08:00 Review of Systems Unobtainable due to cognitive status and Unobtainable due to reduced consciousness Results & Data ([facility]) Laboratory Results Na+ normal QTc 402ms on EKG on 07/01/2022 Medications Administered Acetaminophen (Acetaminophen 325 Mg Tab) 650 mg PO Q4H PRN PRN Reason: Pain or Fever Stop: 07/24/22 21:50 Last Admin: 07/02/22 10:11 Dose: 650 mg Documented By: Admin: 06/28/22 02:10 Dose: 650 mg Documented By: Admin: 06/27/22 10:54 Dose: 650 mg Documented By: Admin: 06/26/22 00:18 Dose: 650 mg Documented By: NESSA Allopurinol (Allopurinol 300 Mg Tab) 450 mg PO DAILY THEL[facility] Stop: 07/25/22 08:59 Last Admin: 07/04/22 08:05 Dose: 450 mg Documented By: Admin: 07/03/22 07:53 Dose: 450 mg Documented By: Admin: 07/02/22 07:53 Dose: 450 mg Documented By: Admin: 07/01/22 08:09 Dose: 450 mg Documented By: Admin: 06/30/22 10:27 Dose: Not Given Documented By: Admin: 06/29/22 10:11 Dose: 450 mg Documented By: Admin: 06/28/22 08:27 Dose: 450 mg Documented By: Admin: 06/27/22 09:00 Dose: 450 mg Documented By: Admin: 06/26/22 08:13 Dose: 450 mg Documented By: Admin: 06/25/22 09:09 Dose: 450 mg Documented By: HADLEY Aspirin (Aspirin 81 Mg Ectab) 162 mg PO DAILY THELMA Stop: 07/25/22 08:59 Last Admin: 07/04/22 08:06 Dose: 162 mg Documented By: Admin: 07/03/22 07:55 Dose: 162 mg Documented By: Admin: 07/02/22 07:53 Dose: 162 mg Documented By: Admin: 07/01/22 08:10 Dose: 162 mg Documented By: Admin: 06/30/22 10:27 Dose: Not Given Documented By: Admin: 06/29/22 10:07 Dose: 162 mg Documented By: Admin: 06/28/22 08:26 Dose: 162 mg Documented By: Admin: 06/27/22 08:59 Dose: 162 mg Documented By: Admin: 06/26/22 08:11 Dose: 162 mg Documented By: Admin: 06/25/22 09:11 Dose: 162 mg Documented By: HADLEY Atorvastatin Calcium (Atorvastatin 40 Mg Tab) 80 mg PO DAILY THELMA Stop: 07/25/22 08:59 Last Admin: 07/04/22 08:06 Dose: 80 mg Documented By: Admin: 07/03/22 07:54 Dose: 80 mg Documented By: Admin: 07/02/22 07:55 Dose: 80 mg Documented By: Admin: 07/01/22 08:11 Dose: 80 mg Documented By: Admin: 06/30/22 10:27 Dose: Not Given Documented By: Admin: 06/29/22 10:08 Dose: 80 mg Documented By: Admin: 06/28/22 08:26 Dose: 80 mg Documented By: Admin: 06/27/22 09:00 Dose: 80 mg Documented By: Admin: 06/26/22 08:12 Dose: 80 mg Documented By: Admin: 06/25/22 09:08 Dose: 80 mg Documented By: HADLEY Calcitriol (Calcitriol 0.25 Mcg Capsule) 0.5 mcg PO MoWeFr@1600 [facility] Stop: 07/24/22 21:50 Last Admin: 07/01/22 16:23 Dose: 0.5 mcg Documented By: Admin: 06/29/22 16:51 Dose: 0.5 mcg Documented By: Admin: 06/27/22 15:55 Dose: 0.5 mcg Documented By: Admin: 06/24/22 23:20 Dose: Not Given Documented By: NESSA Folic Acid (Folic Acid 1 Mg Tab) 1 mg PO QAM [facility] Stop: 07/30/22 08:59 Last Admin: 06/30/22 10:27 Dose: Not Given Documented By: Glucosamine Sulfate (Glucosamine Sulfate 500 Mg Cap) 500 mg PO DAILY THELMA Stop: 07/25/22 08:59 Last Admin: 07/04/22 08:07 Dose: 500 mg Documented By: Admin: 07/03/22 07:56 Dose: 500 mg Documented By: Admin: 07/02/22 07:55 Dose: 500 mg Documented By: Admin: 07/01/22 08:11 Dose: 500 mg Documented By: Admin: 06/30/22 10:27 Dose: Not Given Documented By: Admin: 06/29/22 10:11 Dose: 500 mg Documented By: Admin: 06/28/22 08:27 Dose: 500 mg Documented By: Admin: 06/27/22 09:00 Dose: 500 mg Documented By: Admin: 06/26/22 08:11 Dose: 500 mg Documented By: Admin: 06/25/22 09:10 Dose: 500 mg Documented By: HADLEY Heparin Sodium (Porcine) (Heparin Sod 5,000 Unit/0.5 Ml Vial) 5,000 units SQ Q12 [facility] Stop: 07/30/22 20:59 Last Admin: 07/04/22 08:07 Dose: 5,000 units Documented By: Admin: 07/03/22 20:22 Dose: 5,000 units Documented By: Admin: 07/03/22 08:49 Dose: 5,000 units Documented By: Admin: 07/02/22 20:46 Dose: 5,000 units Documented By: Admin: 07/02/22 09:06 Dose: 5,000 units Documented By: Admin: 07/01/22 20:06 Dose: 5,000 units Documented By: Admin: 07/01/22 08:16 Dose: 5,000 units Documented By: Admin: 06/30/22 20:29 Dose: 5,000 units Documented By: NICOLE Promethazine HCl 6.25 mg/ (Sodium Chloride) 50.25 mls @ 201 mls/hr IV Q6H PRN PRN Reason: Nausea And Vomiting Stop: 07/24/22 21:50 Last Infusion: 06/26/22 17:59 Dose: 0 mls/hr Documented By: Admin: 06/26/22 17:44 Dose: 201 mls/hr Documented By: JOSHUA Folic Acid 1 mg/ Syringe 10 mls @ 5 mls/min IV QAM [facility] Stop: 07/05/22 09:01 Last Admin: 07/04/22 08:13 Dose: 5 mls/min Documented By: Admin: 07/03/22 08:07 Dose: 5 mls/min Documented By: Admin: 07/02/22 08:02 Dose: 5 mls/min Documented By: Admin: 07/01/22 08:23 Dose: 5 mls/min Documented By: Lactobacillus Acidophilus (Advanced Probiotic 1250 Mg Capsule) 2 cap PO DAILY THE[facility] Stop: 07/27/22 08:59 Last Admin: 07/04/22 08:07 Dose: 2 cap Documented By: Admin: 07/03/22 07:53 Dose: 2 cap Documented By: Admin: 07/02/22 07:53 Dose: 2 cap Documented By: Admin: 07/01/22 08:09 Dose: 2 cap Documented By: Admin: 06/30/22 10:27 Dose: Not Given Documented By: Admin: 06/29/22 10:07 Dose: 2 cap Documented By: Admin: 06/28/22 08:26 Dose: 2 cap Documented By: Admin: 06/27/22 09:02 Dose: 2 cap Documented By: KAVYA Lidocaine (Lidocaine 5% 1 Patch) 1 patch TD QAM [facility] Stop: 08/01/22 11:59 Last Admin: 07/04/22 08:08 Dose: 1 patch Documented By: Admin: 07/03/22 08:51 Dose: Not Given Documented By: Admin: 07/02/22 13:04 Dose: 1 patch Documented By: Lidocaine (Lidocaine 5% 1 Patch) 1 patch TD QAM [facility] Stop: 08/01/22 11:59 Last Admin: 07/04/22 08:09 Dose: 1 patch Documented By: Admin: 07/03/22 08:51 Dose: Not Given Documented By: Admin: 07/02/22 13:05 Dose: 1 patch Documented By: Lidocaine/Prilocaine (Lidocaine/Prilocaine 2.5% Ea Crm) 1 each EXT MoWeFr@0700 [facility] Stop: 07/27/22 06:59 Last Admin: 07/04/22 08:55 Dose: Not Given Documented By: Admin: 07/01/22 09:08 Dose: Not Given Documented By: Admin: 06/29/22 16:16 Dose: Not Given Documented By: Admin: 06/27/22 14:39 Dose: Not Given Documented By: KAVYA Midodrine (Midodrine Hcl 2.5 Mg Tab) 5 mg PO TID@0800,1200,1700 [facility] Stop: 07/26/22 11:59 Last Admin: 07/04/22 08:04 Dose: 5 mg Documented By: Admin: 07/03/22 16:26 Dose: 5 mg Documented By: Admin: 07/03/22 11:55 Dose: Not Given Documented By: Admin: 07/03/22 07:55 Dose: 5 mg Documented By: Admin: 07/02/22 17:06 Dose: 5 mg Documented By: Admin: 07/02/22 11:55 Dose: 5 mg Documented By: Admin: 07/02/22 07:55 Dose: 5 mg Documented By: Admin: 07/01/22 16:24 Dose: 5 mg Documented By: Admin: 07/01/22 13:26 Dose: 5 mg Documented By: Admin: 07/01/22 08:10 Dose: 5 mg Documented By: Admin: 06/30/22 16:56 Dose: 5 mg Documented By: Admin: 06/30/22 11:57 Dose: 5 mg Documented By: Admin: 06/30/22 10:27 Dose: Not Given Documented By: Admin: 06/29/22 16:54 Dose: 5 mg Documented By: Admin: 06/29/22 12:14 Dose: 5 mg Documented By: Admin: 06/29/22 10:06 Dose: 5 mg Documented By: Admin: 06/28/22 17:03 Dose: 5 mg Documented By: Admin: 06/28/22 12:40 Dose: 5 mg Documented By: Admin: 06/28/22 08:25 Dose: 5 mg Documented By: Admin: 06/27/22 16:00 Dose: 5 mg Documented By: Admin: 06/27/22 13:57 Dose: 5 mg Documented By: Admin: 06/27/22 08:59 Dose: 5 mg Documented By: Admin: 06/26/22 17:59 Dose: Not Given Documented By: Admin: 06/26/22 13:15 Dose: 5 mg Documented By: KKS Miscellaneous (Remove Lidoderm Patch) 1 each N/A DAILY@2100 [facility] Stop: 08/01/22 20:59 Last Admin: 07/03/22 20:30 Dose: Not Given Documented By: Admin: 07/02/22 21:18 Dose: 1 each Documented By: FRANK Miscellaneous (Remove Lidoderm Patch) 1 each N/A DAILY@2100 [facility] Stop: 08/01/22 20:59 Last Admin: 07/03/22 20:30 Dose: Not Given Documented By: Admin: 07/02/22 21:18 Dose: 1 each Documented By: FRANK Polymyxin/Trimethoprim Sulfate (Trimethoprim/Polymyxin B) 2 drops OP QID [facility] Stop: 08/02/22 16:59 Last Admin: 07/04/22 08:09 Dose: 2 drops Documented By: Admin: 07/03/22 20:22 Dose: 2 drops Documented By: Admin: 07/03/22 17:18 Dose: 2 drops Documented By: ENS Coding Level of Care Code 73726 IN/OBS CONSULT LVL 3,45M Diagnoses Encephalopathy G93.40 Insomnia G47.00
--- NOTE | 2022-07-04 11:06 | Nephrology Progress Note ---
Date of Service July 04, 2022 Assessment & Plan (1) Hypotension: Plan: ongoing hypotension despite holding HD -last TTE in May w/ new/large wall motion abnormality and newly decreased left ventricular systolic function. Blood pressure is stable today Continue midodrine 5 mg 3 times daily. Patient will receive an extra 5 mg on dialysis days (2) End stage renal disease: Plan: ESRD on dialysis Monday. Her last outpatient dialysis was on 06/24/2022. Her most recent inpatient dialysis was June 27, 2022. patient admitted after episode of unresponsiveness occurring a few hours after returning from dialysis. Electrolytes are stable and no signs of volume overload. No indication for dialysis. UF Limited by hypotension; obligate BB d/t HR > Patient tolerating dialysis well with target UF of 2 L -Patient will be on twice weekly dialysis Monday and Monday given multiple comorbidities and current hypertension (3) Acute on chronic respiratory failure with hypoxemia: Plan: Patient is on oxygen 1-2L nasal cannula currently. Monitor and titrate oxygen for FiO2 above 92. Admission and Anticipated Discharge Date Admission Date: June 24, 2022 Subjective Seen in follow-up for ESRD. No shortness of breath or leg swelling. She remains on oxygen nasal cannula. She is intermittently drowsy. Patient was seen and examined while on dialysis. Review of Systems Review of Systems: All other systems were reviewed and negative except as noted in HPI Physical Exam Physical Exam: General exam: Appears comfortable, no acute distress HEENT: Pupils are equal and reactive to light Neck: No JVD, neck is supple trachea is midline Respiratory system: Clear breath sounds bilaterally. Gastrointestinal: Abdomen is soft, non distended, non tender, bowel sounds are present CVS: Regular rate and rhythm. No murmurs, rubs or gallops Musculoskeletal: No joint or muscle tenderness Extremities: Non tender, no edema, peripheral pulses are present Neuro: Oriented, no tremors, no focal neurological deficits Skin: No rashes Results & Data ([facility]) Vital Signs (Past 12 Hours) Vital Signs Temp Pulse Pulse Pulse Resp BP BP 07/04/22 10:30 94 H 101/57 L 07/04/22 08:00 07/04/22 10:00 93 H 104/65 07/04/22 09:30 90 106/64 07/04/22 09:21 36.5 C 92 H 07/04/22 07:12 37.1 C 91 H 18 107/68 07/04/22 03:00 36.9 C 92 H 18 106/58 L Pulse Ox O2 Del Method O2 Flow Rate 07/04/22 10:30 07/04/22 08:00 Nasal Cannula 3 07/04/22 10:00 07/04/22 09:30 07/04/22 09:21 07/04/22 07:12 96 Nasal Cannula 2 07/04/22 03:00 96 Nasal Cannula 3 Laboratory Results 07/03/22 05:27
[2022-07-04] MEDS ORDERED: MIDODRINE HCL 2.5 MG TAB PO ONE (11:07)
[2022-07-04] MEDS: ACETAMINOPHEN 325 MG TAB PO PRN (15:04)
[2022-07-04] MEDS ORDERED: DIGOXIN 0.125 MG TAB PO SCH (16:00)
[2022-07-04] MEDS: CALCITRIOL 0.25 MCG CAPSULE PO SCH (16:32)
--- NOTE | 2022-07-04 16:46 | Hospitalist Progress Note ---
Date of Service July 04, 2022 Assessment & Plan (1) Unresponsiveness: Plan: per Dr. Gerber's notes with addendum: ff up for syncope, delirium, etc Syncope secondary to Hypotension Most likely due to hypotension (SBP in 70s on admission) Started midodrine 5mg PO TID with improved BP AM cortisol normal blood cultures negative History of multiple readmissions for similar 07/04 BP on the lower side today continue Midodrine 5mg TID Altered mental status, likely secondary to delirium vs metabolic encephalopathy Multifactorial: Hospital delirium, metabolic encephalopathy 06/28 was noted to have worsening confusion and slurred speech so stroke alert was called CT head negative for acute findings. CTA head/neck shows 80% left ICA stenosis and 50% right ICA stenosis. MRI lobo negative for acute stroke. EEG 06/30 shows moderate encephalopathy but no epileptiform waves ABG unremarkable Folate low (repletion started) B12 normal RPR negative Keppra mildly supratherapeutic (dose adjusted to 500mg BID) Ammonia not elevated but review of CT A/P from 2021 shows nodularity of liver consistent with cirrhosis--> daughter is unaware of this. If ongoing encephalopathy, can consider trial of lactulose 06/28 evening 06/29 evening received olanzapine for agitation--> avoid sedating medications if possible 07/01 evening received Haldol 0.5mg IM 07/04 seems to be improving oriented x 2 today monitor closely Keppra dose elevated at [address] Caraballo Recommend to decrease Keppra dosing by 50% Monitor closely Bilateral lower extremity pain Likely secondary to PRAFO boot We consulted orthotics service for adjustment As needed Tylenol ordered Chronic A fib Patient not on anticoagulation secondary to history ICH, history of cerebral amyloid angiopathy was previously on digoxin which was held yesterday due to elevated level (her confusion predated this elevation, prior digoxin levels were within range). Resume digoxin 125mcg on dialysis days (previously was MWF, but per Nephrology it appears they will be moving towards MF dialysis schedule, so will change digoxin to MF dosing) Appreciate Cardiology input, holding metoprolol 3/ Heart rate controlled hx COPD/nocturnal hypoxemia/pulm hypertension, oxygenation stable --At baseline 3 L of oxygen via nasal cannula hx chronic systolic heart failure --fluid status managed by dialysis hx CAD sp stenting valvular heart disease (severe TR, mild /MR ) -stable currently Seizure -home regime: keppra 500mg BID. Extra 500mg on dialysis days (MWF) after dialysis -while she is not getting dialysis consistently, will be on Keppra 500mg BID. Keppra level was mildly above range but per Neurology not enough to explain her confusion. Repeat level is pending. 07/04 Management of Keppra per above ESRD on HD -Managed per Nephrology. previously MWF schedule now appears to be on MF schedule. 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 SQ heparin Disposition pending-Will likely need SNF PT/OT evaluation Admission and Anticipated Discharge Date Admission Date: June 24, 2022 Subjective Follow-up for syncopal episode, hypotension, etc. Status post hemodialysis this morning Seen resting in bed, sleeping but easily awakened Oriented x2 Answering most questions appropriately States she feels fine overall Does report bilateral feet/leg pain Denies headache, dizziness, nausea, chest pain, shortness of breath, Phillip pain Had some breakfast this morning per RN No other new symptoms Review of Systems Review of Systems: all noted and negative except for above Physical Exam Physical Exam: General- oriented x 2, not in distress, speaks in sentences with no effort or accessory muscle use Eyes- anicteric Neck- no JVD Lungs- clear BS bilaterally, no rales/wheezes Heart- normal rate, regular rhythm; no murmurs Abdomen- normal bowel sounds, nondistended, soft, nontender Extremities- no pretibial edema, no calf tenderness Neuro- alert, oriented x 2; no gross focal neurologic deficits Skin- warm & dry Results & Data Results & Data ([facility]) Vital Signs (Past 12 Hours) Vital Signs Temp Pulse Pulse Resp BP BP Pulse Ox 07/04/22 16:31 97 H 07/04/22 14:08 36.9 C 97 H 20 116/71 98 07/04/22 13:25 37.1 C 92 H 98/53 L 07/04/22 12:15 97 H 90/56 L 07/04/22 12:30 96 H 98/54 L 07/04/22 12:00 87 89/53 L 07/04/22 11:30 93 H 93/50 L 07/04/22 11:00 102 H 95/57 L 07/04/22 10:30 94 H 101/57 L 07/04/22 08:00 07/04/22 10:00 93 H 104/65 07/04/22 09:30 90 106/64 07/04/22 09:21 36.5 C 92 H 07/04/22 07:12 37.1 C 91 H 18 107/68 96 O2 Del Method O2 Flow Rate 07/04/22 16:31 07/04/22 14:08 Nasal Cannula 3 07/04/22 13:25 07/04/22 12:15 07/04/22 12:30 07/04/22 12:00 07/04/22 11:30 07/04/22 11:00 07/04/22 10:30 07/04/22 08:00 Nasal Cannula 3 07/04/22 10:00 07/04/22 09:30 07/04/22 09:21 07/04/22 07:12 Nasal Cannula 2 all noted and reviewed including below
[2022-07-04] MEDS ORDERED: levETIRAcetam 250 MG TAB PO SCH (17:00)
[2022-07-04] MEDS: MELATONIN 3 MG TAB PO SCH (18:02)
[2022-07-04] MEDS: levETIRAcetam 250 MG TAB PO SCH (20:09)
[2022-07-05] MEDS: ATORVASTATIN 40 MG TAB PO SCH (08:19)
[2022-07-05] MEDS: HEPARIN SOD 5,000 UNIT/0.5 ML VIAL SQ SCH ×2 (08:19→19:53)
[2022-07-05] MEDS: ASPIRIN 81 MG ECTAB PO SCH (08:20)
[2022-07-05] MEDS: GLUCOSAMINE SULFATE 500 MG CAP PO SCH (08:20)
[2022-07-05] MEDS: allopurinoL 300 MG TAB PO SCH (08:20)
[2022-07-05] MEDS: levETIRAcetam 250 MG TAB PO SCH ×2 (08:21→20:52)
[2022-07-05] MEDS: MIDODRINE HCL 2.5 MG TAB PO SCH ×3 (08:21→17:18)
[2022-07-05] MEDS: ADVANCED PROBIOTIC 1250 MG CAPSULE PO SCH (08:21)
[2022-07-05] MEDS: LIDOCAINE 5% 1 PATCH TD SCH ×2 (08:23)
[2022-07-05] MEDS: TRIMETHOPRIM/POLYMYXIN B OP SCH ×4 (08:23→19:53)
[2022-07-05] MEDS: FOLIC ACID 1 MG in SYRINGE 9.8 ML IV SCH (08:24)
--- NOTE | 2022-07-05 10:32 | Nephrology Progress Note ---
Date of Service July 05, 2022 Assessment & Plan (1) Hypotension: Plan: ongoing hypotension despite holding HD -last TTE in May w/ new/large wall motion abnormality and newly decreased left ventricular systolic function. Blood pressure is stable today Continue midodrine 5 mg 3 times daily. Patient will receive an extra 5 mg on dialysis days (2) End stage renal disease: Plan: ESRD on dialysis Monday. Her last outpatient dialysis was on 06/24/2022. patient admitted after episode of unresponsiveness occurring a few hours after returning from dialysis. Electrolytes are stable and no signs of volume overload. No indication for dialysis. UF Limited by hypotension; obl igate BB d/t HR > Patient tolerated dialysis well yesterday with target UF of 1.7 L -We will attempt HD tomorrow for 3 hours Target UF 1.5 L (3) Acute on chronic respiratory failure with hypoxemia: Plan: Patient is on oxygen 1-2L nasal cannula currently. Monitor and titrate oxygen for FiO2 above 92. Admission and Anticipated Discharge Date Admission Date: June 24, 2022 Subjective Seen for ESRD. She looks better this morning. She is asking about going home. No shortness of breath. Review of Systems Review of Systems: All other systems were reviewed and negative except as noted in HPI Physical Exam Physical Exam: General exam: Appears comfortable, no acute distress HEENT: Pupils are equal and reactive to light Neck: No JVD, neck is supple trachea is midline Respiratory system: Clear breath sounds bilaterally. Gastrointestinal: Abdomen is soft, non distended, non tender, bowel sounds are present CVS: Regular rate and rhythm. No murmurs, rubs or gallops Musculoskeletal: No joint or muscle tenderness Extremities: Non tender, no edema, peripheral pulses are present Neuro: Oriented, no tremors, no focal neurological deficits Skin: No rashes Results & Data ([facility]) Vital Signs (Past 12 Hours) Vital Signs Temp Pulse Pulse Pulse Resp BP Pulse Ox 07/05/22 10:22 94 H 07/05/22 08:00 36.9 C 89 20 121/59 L 96 07/05/22 08:04 07/05/22 05:19 36.6 C 92 H 20 106/67 99 07/04/22 22:52 36.8 C 62 20 100/58 L 97 O2 Del Method O2 Flow Rate 07/05/22 10:22 07/05/22 08:00 Room Air 03/07/23 08:04 Nasal Cannula 3 07/05/22 05:19 Nasal Cannula 3 07/04/22 22:52 Nasal Cannula 3 Laboratory Results 07/03/22 05:27
[2022-07-05] MEDS: ACETAMINOPHEN 325 MG TAB PO PRN ×2 (11:12→15:14)
--- NOTE | 2022-07-05 14:39 | Hospitalist Progress Note ---
Date of Service July 05, 2022 Assessment & Plan (1) Unresponsiveness: Plan: per Dr. Gerber's notes with addendum: ff up for syncope, delirium, etc Syncope secondary to Hypotension Most likely due to hypotension (SBP in 70s on admission) Started midodrine 5mg PO TID with improved BP AM cortisol normal blood cultures negative History of multiple readmissions for similar 07/04 BP on the lower side today continue Midodrine 5mg TID Altered mental status, likely secondary to delirium vs metabolic encephalopathy Multifactorial: Hospital delirium, metabolic encephalopathy 06/28 was noted to have worsening confusion and slurred speech so stroke alert was called CT head negative for acute findings. CTA head/neck shows 80% left ICA stenosis and 50% right ICA stenosis. MRI lobo negative for acute stroke. EEG 06/30 shows moderate encephalopathy but no epileptiform waves ABG unremarkable Folate low (repletion started) B12 normal RPR negative Keppra mildly supratherapeutic (dose adjusted to 500mg BID) Ammonia not elevated but review of CT A/P from 2021 shows nodularity of liver consistent with cirrhosis--> daughter is unaware of this. If ongoing encephalopathy, can consider trial of lactulose 06/28 evening 06/29 evening received olanzapine for agitation--> avoid sedating medications if possible 07/01 evening received Haldol 0.5mg IM 07/04 seems to be improving oriented x 2 today monitor closely Keppra dose elevated at [address] Caraballo Recommend to decrease Keppra dosing by 50% Monitor closely Bilateral lower extremity pain Likely secondary to PRAFO boot We consulted orthotics service for adjustment As needed Tylenol ordered 07/05 No acute events overnight per waitstaff captain Mental status seems to be improving, but patient still on the drowsy side Continue melatonin at bedtime Continue to monitor while on the reduced dose of Keppra Bilateral lower extremity pain Orthotics service consulted, adjustments made today Monitor closely Chronic A fib Patient not on anticoagulation secondary to history ICH, history of cerebral amyloid angiopathy was previously on digoxin which was held yesterday due to elevated level (her confusion predated this elevation, prior digoxin levels were within range). Resume digoxin 125mcg on dialysis days (previously was MWF, but per Nephrology it appears they will be moving towards MF dialysis schedule, so will change digoxin to MF dosing) Appreciate Cardiology input, holding metoprolol 3/7 Heart rate controlled hx COPD/nocturnal hypoxemia/pulm hypertension, oxygenation stable --At baseline 3 L of oxygen via nasal cannula hx chronic systolic heart failure --fluid status managed by dialysis hx CAD sp stenting valvular heart disease (severe TR, mild /MR ) -stable currently Seizure -home regime: keppra 500mg BID. Extra 500mg on dialysis days (MWF) after dialysis -while she is not getting dialysis consistently, will be on Keppra 500mg BID. Keppra level was mildly above range but per Neurology not enough to explain her confusion. Repeat level is pending. 07/05 Management of Keppra per above ESRD on HD -Managed per Nephrology. previously MWF schedule now appears to be on MF schedule. 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 SQ heparin Disposition pending-Will likely need SNF PT/OT evaluation Admission and Anticipated Discharge Date Admission Date: June 24, 2022 Subjective Follow-up for syncope, hypotension, etc. Seen resting in bed, sleeping but easily awakened Oriented x2, answering most questions appropriately Reports bilateral arm pain-secondary to blood draws Reports lower leg pain has resolved No shortness of breath, chest pain, palpitations, dizziness No other symptoms Review of Systems Review of Systems: all noted and negative except for above Physical Exam Physical Exam: General- oriented x 2, not in distress, speaks in sentences with no effort or accessory muscle use Eyes- anicteric Neck- no JVD Lungs- clear BS bilaterally, no rales/wheezes Heart- normal rate, regular rhythm; no murmurs Abdomen- normal bowel sounds, nondistended, soft, no tenderness Extremities- no pretibial edema, no calf tenderness Neuro- alert, oriented x2; no gross focal neurologic deficits Skin- warm & dry Results & Data Results & Data ([facility]) Vital Signs (Past 12 Hours) Vital Signs Temp Pulse Pulse Pulse Resp BP Pulse Ox 07/05/22 12:16 36.7 C 97 H 18 132/61 97 07/05/22 10:22 94 H 07/05/22 08:00 36.9 C 89 20 121/59 L 96 07/05/22 08:04 07/05/22 05:19 36.6 C 92 H 20 106/67 99 O2 Del Method O2 Flow Rate 07/05/22 12:16 Room Air 07/05/22 10:22 07/05/22 08:00 Room Air 07/05/22 08:04 Nasal Cannula 3 07/05/22 05:19 Nasal Cannula 3 all noted and reviewed including below
[2022-07-05] MEDS ORDERED: HYDROCODONE/ACETAMOPHEN 5/325MG TAB PO STA (17:16)
[2022-07-05] MEDS: MELATONIN 3 MG TAB PO SCH (18:10)
[2022-07-06] MEDS ORDERED: SODIUM CHLORIDE 0.9% 1000ML 1,000 ML IV PRN (07:00)
[2022-07-06] MEDS: HEPARIN SOD 5,000 UNIT/0.5 ML VIAL SQ SCH ×2 (08:18→20:26)
[2022-07-06] MEDS: allopurinoL 300 MG TAB PO SCH (08:18)
[2022-07-06] MEDS: ASPIRIN 81 MG ECTAB PO SCH (08:19)
[2022-07-06] MEDS: GLUCOSAMINE SULFATE 500 MG CAP PO SCH (08:19)
[2022-07-06] MEDS: ADVANCED PROBIOTIC 1250 MG CAPSULE PO SCH (08:19)
[2022-07-06] MEDS: ATORVASTATIN 40 MG TAB PO SCH (08:19)
[2022-07-06] MEDS: MIDODRINE HCL 2.5 MG TAB PO SCH ×3 (08:19→16:30)
[2022-07-06] MEDS: TRIMETHOPRIM/POLYMYXIN B OP SCH ×4 (08:21→20:28)
[2022-07-06] MEDS: LIDOCAINE 5% 1 PATCH TD SCH ×2 (09:39)
[2022-07-06 10:35] LABS: HBSAG NON-REACTIVE (NON-REACTIVE)
--- NOTE | 2022-07-06 11:25 | Nephrology Progress Note ---
Date of Service July 06, 2022 Assessment & Plan (1) Hypotension: Plan: ongoing hypotension despite holding HD -last TTE in May w/ new/large wall motion abnormality and newly decreased left ventricular systolic function. Blood pressure is stable today Continue midodrine 5 mg 3 times daily. Patient will receive an extra 5 mg on dialysis days (2) End stage renal disease: Plan: ESRD on dialysis Monday. Her last outpatient dialysis was on 06/24/2022. patient admitted after episode of unresponsiveness occurring a few hours after returning from dialysis. Electrolytes are stable and no signs of volume overload. UF Limited by hypotension; obligate BB d/t HR > Patient tolerating dialysis well today with target UF of 2 L (3) Acute on chronic respiratory failure with hypoxemia: Plan: Patient is on oxygen 1-2L nasal cannula currently. Monitor and titrate oxygen for FiO2 above 92. Admission and Anticipated Discharge Date Admission Date: June 24, 2022 Subjective Seen for ESRD. Patient feels better today. No shortness of breath. Patient was seen and examined while on dialysis Review of Systems Review of Systems: All other systems were reviewed and negative except as noted in HPI Physical Exam Physical Exam: General exam: Appears comfortable, no acute distress HEENT: Pupils are equal and reactive to light Neck: No JVD, neck is supple trachea is midline Respiratory system: Clear breath sounds bilaterally. Gastrointestinal: Abdomen is soft, non distended, non tender, bowel sounds are present CVS: Regular rate and rhythm. No murmurs, rubs or gallops Musculoskeletal: No joint or muscle tenderness Extremities: Non tender, no edema, peripheral pulses are present Neuro: Oriented, no tremors, no focal neurological deficits Skin: No rashes Results & Data ([facility]) Vital Signs (Past 12 Hours) Vital Signs Temp Pulse Pulse Resp BP BP Pulse Ox 07/06/22 11:00 102 H 108/65 07/06/22 10:30 96 H 117/70 07/06/22 10:00 96 H 119/71 07/06/22 08:17 07/06/22 09:30 99 H 122/80 07/06/22 09:06 36.7 C 104 H 07/06/22 08:29 36.9 C 70 19 123/84 98 07/06/22 06:11 93 H 07/06/22 03:03 36.6 C 86 18 112/73 99 O2 Del Method O2 Flow Rate 07/06/22 11:00 07/06/22 10:30 07/06/22 10:00 07/06/22 08:17 Nasal Cannula 2 07/06/22 09:30 07/06/22 09:06 07/06/22 08:29 Nasal Cannula 2 07/06/22 06:11 07/06/22 03:03 Nasal Cannula 2 Laboratory Results 07/03/22 05:27
[2022-07-06] MEDS: levETIRAcetam 250 MG TAB PO SCH ×3 (12:45→20:28)
[2022-07-06] MEDS: CALCITRIOL 0.25 MCG CAPSULE PO SCH (16:28)
[2022-07-06] MEDS: DIGOXIN 0.125 MG TAB PO SCH ×2 (16:29→17:38)
--- NOTE | 2022-07-06 16:59 | Hospitalist Progress Note ---
Date of Service July 06, 2022 Assessment & Plan (1) Unresponsiveness: Plan: per Dr. Gerber's notes with addendum: ff up for syncope, delirium, etc Syncope secondary to Hypotension Most likely due to hypotension (SBP in 70s on admission) Started midodrine 5mg PO TID with improved BP AM cortisol normal blood cultures negative History of multiple readmissions for similar 07/04 BP on the lower side today continue Midodrine 5mg TID 07/06 BP stable overall Altered mental status, likely secondary to delirium vs metabolic encephalopathy Multifactorial: Hospital delirium, metabolic encephalopathy 06/28 was noted to have worsening confusion and slurred speech so stroke alert was called CT head negative for acute findings. CTA head/neck shows 80% left ICA stenosis and 50% right ICA stenosis. MRI lobo negative for acute stroke. EEG 06/30 shows moderate encephalopathy but no epileptiform waves ABG unremarkable Folate low (repletion started) B12 normal RPR negative Keppra mildly supratherapeutic (dose adjusted to 500mg BID) Ammonia not elevated but review of CT A/P from 2021 shows nodularity of liver consistent with cirrhosis--> daughter is unaware of this. If ongoing encephalopathy, can consider trial of lactulose 06/28 evening 06/29 evening received olanzapine for agitation--> avoid sedating medications if possible 07/01 evening received Haldol 0.5mg IM 07/04 seems to be improving oriented x 2 today monitor closely Keppra dose elevated at [address] Caraballo Recommend to decrease Keppra dosing by 50% Monitor closely Bilateral lower extremity pain Likely secondary to PRAFO boot We consulted orthotics service for adjustment As needed Tylenol ordered 07/05 No acute events overnight per staff air defense officer Mental status seems to be improving, but patient still on the drowsy side Continue melatonin at bedtime Continue to monitor while on the reduced dose of Keppra Bilateral lower extremity pain Orthotics service consulted, adjustments made today Monitor closely 07/06 Mental status improving Continue to monitor Chronic A fib Patient not on anticoagulation secondary to history ICH, history of cerebral amyloid angiopathy was previously on digoxin which was held yesterday due to elevated level (her confusion predated this elevation, prior digoxin levels were within range). Resume digoxin 125mcg on dialysis days (previously was MWF, but per Nephrology it appears they will be moving towards MF dialysis schedule, so will change digoxin to MF dosing) Appreciate Cardiology input, holding metoprolol 07/06 Heart rate controlled hx COPD/nocturnal hypoxemia/pulm hypertension, oxygenation stable --At baseline 3 L of oxygen via nasal cannula hx chronic systolic heart failure --fluid status managed by dialysis hx CAD sp stenting valvular heart disease (severe TR, mild /MR ) -stable currently Seizure -home regime: keppra 500mg BID. Extra 500mg on dialysis days (MWF) after dialysis -while she is not getting dialysis consistently, will be on Keppra 500mg BID. Keppra level was mildly above range but per Neurology not enough to explain her confusion. Repeat level is pending. 07/06 Management of Keppra per above ESRD on HD -Managed per Nephrology. 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 SQ heparin Disposition pending-Will likely need SNF PT/OT evaluation Admission and Anticipated Discharge Date Admission Date: June 24, 2022 Subjective Follow-up for syncope, etc. Seen resting in bed, comfortable, sleeping but easily awakened Had dialysis this morning States she feels fine overall Does report some discomfort over the right upper arm No shortness of breath, abdominal pain, leg pain Appetite is poor Patient answers most questions appropriately No other new symptoms Review of Systems Review of Systems: all noted and negative except for above Physical Exam Physical Exam: General- oriented x 2, not in distress, speaks in sentences with no effort or accessory muscle use Eyes- anicteric Neck- no JVD Lungs- clear BS bilaterally, no rales/wheezes Heart- normal rate, regular rhythm; no murmurs Abdomen- normal bowel sounds, nondistended, soft, nontender Extremities- no pretibial edema, no calf tenderness Neuro- alert, oriented x 3; no gross focal neurologic deficits Skin- warm & dry Results & Data Results & Data ([facility]) Vital Signs (Past 12 Hours) Vital Signs Temp Pulse Pulse Resp BP BP Pulse Ox 07/06/22 15:07 37.3 C 93 H 18 115/71 99 07/06/22 12:20 36.9 C 96 H 124/72 07/06/22 12:00 94 H 129/66 07/06/22 11:30 97 H 124/65 07/06/22 12:46 37.0 C 73 18 131/82 97 07/06/22 11:00 102 H 108/65 07/06/22 10:30 96 H 117/70 07/06/22 10:00 96 H 119/71 07/06/22 08:17 07/06/22 09:30 99 H 122/80 07/06/22 09:06 36.7 C 104 H 07/06/22 08:29 36.9 C 70 19 123/84 98 07/06/22 06:11 93 H O2 Del Method O2 Flow Rate 07/06/22 15:07 Nasal Cannula 2 07/06/22 12:20 07/06/22 12:00 07/06/22 11:30 07/06/22 12:46 Nasal Cannula 2 07/06/22 11:00 07/06/22 10:30 07/06/22 10:00 07/06/22 08:17 Nasal Cannula 2 07/06/22 09:30 07/06/22 09:06 07/06/22 08:29 Nasal Cannula 2 07/06/22 06:11 all noted and reviewed including below
[2022-07-06] MEDS: MELATONIN 3 MG TAB PO SCH (18:12)
[2022-07-06] MEDS: LIDOCAINE/PRILOCAINE 2.5% EA CRM EXT SCH (19:12)
[2022-07-06] MEDS: ACETAMINOPHEN 325 MG TAB PO PRN (20:29)
[2022-07-07] MEDS: ADVANCED PROBIOTIC 1250 MG CAPSULE PO SCH (07:49)
[2022-07-07] MEDS: ATORVASTATIN 40 MG TAB PO SCH (07:49)
[2022-07-07] MEDS: GLUCOSAMINE SULFATE 500 MG CAP PO SCH (07:49)
[2022-07-07] MEDS: allopurinoL 300 MG TAB PO SCH (07:50)
[2022-07-07] MEDS: MIDODRINE HCL 2.5 MG TAB PO SCH ×3 (07:50→16:08)
[2022-07-07] MEDS: ASPIRIN 81 MG ECTAB PO SCH (07:50)
[2022-07-07] MEDS: HEPARIN SOD 5,000 UNIT/0.5 ML VIAL SQ SCH ×2 (07:52→20:03)
[2022-07-07] MEDS: TRIMETHOPRIM/POLYMYXIN B OP SCH ×4 (07:53→20:03)
[2022-07-07] MEDS: LIDOCAINE 5% 1 PATCH TD SCH ×2 (07:54)
[2022-07-07] MEDS: levETIRAcetam 250 MG TAB PO SCH ×2 (08:47→20:02)
--- NOTE | 2022-07-07 11:17 | Nephrology Progress Note ---
Date of Service July 07, 2022 Assessment & Plan (1) Hypotension: Plan: ongoing hypotension despite holding HD -last TTE in May w/ new/large wall motion abnormality and newly decreased left ventricular systolic function. Blood pressure is stable today Continue midodrine 5 mg 3 times daily. Patient will receive an extra 5 mg on dialysis days (2) End stage renal disease: Plan: ESRD on dialysis Monday. Her last outpatient dialysis was on 06/24/2022. patient admitted after episode of unresponsiveness occurring a few hours after returning from dialysis. Electrolytes are stable and no signs of volume overload. UF Limited by hypotension; obligate BB d/t HR > Patient tolerated dialysis well yesterday with target UF of 2 L. Next HD tomorrow (3) Acute on chronic respiratory failure with hypoxemia: Plan: Patient is on oxygen 1-2L nasal cannula currently. Monitor and titrate oxygen for FiO2 above 92. Admission and Anticipated Discharge Date Admission Date: June 24, 2022 Subjective Seen for ESRD. She feels better today. No shortness of breath. She had dialysis yesterday. Labs and imaging reviewed Review of Systems Review of Systems: All other systems were reviewed and negative except as noted in HPI Physical Exam Physical Exam: General exam: Appears comfortable, no acute distress HEENT: Pupils are equal and reactive to light Neck: No JVD, neck is supple trachea is midline Respiratory system: Clear breath sounds bilaterally. Gastrointestinal: Abdomen is soft, non distended, non tender, bowel sounds are present CVS: Regular rate and rhythm. No murmurs, rubs or gallops Musculoskeletal: No joint or muscle tenderness Extremities: Non tender, no edema, peripheral pulses are present Neuro: Oriented, no tremors, no focal neurological deficits Skin: No rashes Results & Data ([facility]) Vital Signs (Past 12 Hours) Vital Signs Temp Pulse Pulse Resp BP Pulse Ox O2 Del Method 07/07/22 08:00 92 H 07/07/22 08:00 Nasal Cannula 07/07/22 07:12 37.0 C 95 H 19 124/79 96 Nasal Cannula 07/07/22 03:19 36.3 C L 91 H 20 101/54 L 98 Nasal Cannula O2 Flow Rate 07/07/22 08:00 07/07/22 08:00 2 07/07/22 07:12 2 07/07/22 03:19 2 Laboratory Results 07/03/22 05:27
--- NOTE | 2022-07-07 12:59 | Hospitalist Progress Note ---
Date of Service July 07, 2022 Assessment & Plan (1) Unresponsiveness: Plan: per Dr. Gerber's notes with addendum: ff up for syncope, delirium, etc Syncope secondary to Hypotension Most likely due to hypotension (SBP in 70s on admission) Started midodrine 5mg PO TID with improved BP AM cortisol normal blood cultures negative History of multiple readmissions for similar 07/04 BP on the lower side today continue Midodrine 5mg TID 07/06 BP stable overall 07/07 BP stable Altered mental status, likely secondary to delirium vs metabolic encephalopathy Multifactorial: Hospital delirium, metabolic encephalopathy 06/28 was noted to have worsening confusion and slurred speech so stroke alert was called CT head negative for acute findings. CTA head/neck shows 80% left ICA stenosis and 50% right ICA stenosis. MRI lobo negative for acute stroke. EEG 06/30 shows moderate encephalopathy but no epileptiform waves ABG unremarkable Folate low (repletion started) B12 normal RPR negative Keppra mildly supratherapeutic (dose adjusted to 500mg BID) Ammonia not elevated but review of CT A/P from 2021 shows nodularity of liver consistent with cirrhosis--> daughter is unaware of this. If ongoing encephalopathy, can consider trial of lactulose 06/28 evening 06/29 evening received olanzapine for agitation--> avoid sedating medications if possible 07/01 evening received Haldol 0.5mg IM 07/04 seems to be improving oriented x 2 today monitor closely Keppra dose elevated at [address] Caraballo Recommend to decrease Keppra dosing by 50% Monitor closely Bilateral lower extremity pain Likely secondary to PRAFO boot We consulted orthotics service for adjustment As needed Tylenol ordered 07/05 No acute events overnight per staff development educator Mental status seems to be improving, but patient still on the drowsy side Continue melatonin at bedtime Continue to monitor while on the reduced dose of Keppra Bilateral lower extremity pain Orthotics service consulted, adjustments made today Monitor closely 07/06 Mental status improving Continue to monitor 07/07 overnight, patient was agitated again will start Remeron 7.5mg po HS as per Psych Chronic A fib Patient not on anticoagulation secondary to history ICH, history of cerebral amyloid angiopathy was previously on digoxin which was held yesterday due to elevated level (her confusion predated this elevation, prior digoxin levels were within range). Resume digoxin 125mcg on dialysis days (previously was MWF, but per Nephrology it appears they will be moving towards MF dialysis schedule, so will change digoxin to MF dosing) Appreciate Cardiology input, holding metoprolol 07/07 Heart rate controlled hx COPD/nocturnal hypoxemia/pulm hypertension, oxygenation stable --At baseline 3 L of oxygen via nasal cannula hx chronic systolic heart failure --fluid status managed by dialysis hx CAD sp stenting valvular heart disease (severe TR, mild /MR ) -stable currently Seizure -home regime: keppra 500mg BID. Extra 500mg on dialysis days (MWF) after dialysis -while she is not getting dialysis consistently, will be on Keppra 500mg BID. Keppra level was mildly above range but per Neurology not enough to explain her confusion. Repeat level is pending. 07/06 Management of Keppra per above ESRD on HD -Managed per Nephrology. 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 SQ heparin Disposition pending-Will likely need SNF PT/OT evaluation Admission and Anticipated Discharge Date Admission Date: June 24, 2022 Subjective ff up for syncope, hypotension, confusion, etc seen resting in bed, comfortable alert, answers most questions appropriately, occasionally confused easily redirected no chest pain, dyspnea, palpitations, dizziness no other symptoms Review of Systems Review of Systems: all noted and negative except for above Physical Exam Physical Exam: General- oriented x 2, not in distress, speaks in sentences with no effort or accessory muscle use Eyes- anicteric Neck- no JVD Lungs- clear breath sounds bilaterally, no rales/wheezes Heart- normal rate, regular rhythm; no murmurs Abdomen- normal bowel sounds, nondistended, soft, nontender Extremities- no pretibial edema, no calf tenderness Neuro- alert, oriented x 2; no gross focal neurologic deficits Skin- warm & dry Results & Data Results & Data ([facility]) Vital Signs (Past 12 Hours) Vital Signs Temp Pulse Pulse Resp BP Pulse Ox O2 Del Method 07/07/22 12:23 36.6 C 92 H 18 106/65 97 Nasal Cannula 07/07/22 08:00 92 H 07/07/22 08:00 Nasal Cannula 07/07/22 07:12 37.0 C 95 H 19 124/79 96 Nasal Cannula 07/07/22 03:19 36.3 C L 91 H 20 101/54 L 98 Nasal Cannula O2 Flow Rate 07/07/22 12:23 2 07/07/22 08:00 07/07/22 08:00 2 07/07/22 07:12 2 07/07/22 03:19 2 all noted and reviewed including below
[2022-07-07] MEDS: ACETAMINOPHEN 325 MG TAB PO PRN (16:07)
[2022-07-07] MEDS: MIRTAZAPINE TAB 15 MG TAB PO SCH ×2 (20:03→21:41)
[2022-07-08] MEDS ORDERED: HEPARIN SOD (PORCINE) 1000 UNIT/ML IV ONE (07:00)
[2022-07-08] MEDS ORDERED: SODIUM CHLORIDE 0.9% 1000ML 1,000 ML IV PRN (07:00)
[2022-07-08] MEDS ORDERED: EPOETIN ALFA 10,000 UNITS/ML VIAL IV ONE (07:00)
[2022-07-08] MEDS: MIDODRINE HCL 2.5 MG TAB PO SCH ×3 (08:41→16:54)
[2022-07-08] MEDS: ATORVASTATIN 40 MG TAB PO SCH (08:42)
[2022-07-08] MEDS: ASPIRIN 81 MG ECTAB PO SCH (08:42)
[2022-07-08] MEDS: ADVANCED PROBIOTIC 1250 MG CAPSULE PO SCH (08:42)
[2022-07-08] MEDS: levETIRAcetam 250 MG TAB PO SCH ×3 (08:42→19:54)
[2022-07-08] MEDS: GLUCOSAMINE SULFATE 500 MG CAP PO SCH (08:42)
[2022-07-08] MEDS: allopurinoL 300 MG TAB PO SCH (08:43)
[2022-07-08] MEDS: TRIMETHOPRIM/POLYMYXIN B OP SCH ×4 (08:43→19:53)
[2022-07-08] MEDS: HEPARIN SOD 5,000 UNIT/0.5 ML VIAL SQ SCH ×2 (08:50→19:53)
[2022-07-08] MEDS: LIDOCAINE 5% 1 PATCH TD SCH ×2 (09:06)
[2022-07-08] MEDS: HEPARIN SOD (PORCINE) 1000 UNIT/ML IV SCH ×3 (10:37→11:21)
--- NOTE | 2022-07-08 11:50 | Nephrology Progress Note ---
Date of Service July 08, 2022 Assessment & Plan (1) Hypotension: Plan: ongoing hypotension despite holding HD -last TTE in May w/ new/large wall motion abnormality and newly decreased left ventricular systolic function. Blood pressure is stable today Continue midodrine 5 mg 3 times daily. Patient can receive an extra 5 mg on dialysis days as needed (2) End stage renal disease: Plan: ESRD on dialysis Monday. Her last outpatient dialysis was on 06/24/2022. patient admitted after episode of unresponsiveness occurring a few hours after returning from dialysis. Electrolytes are stable and no signs of volume overload. UF Limited by hypotension; obligate BB d/t HR > Patient tolerating dialysis well today with target UF of 2 L. -From renal standpoint patient can be discharged after dialysis (3) Acute on chronic respiratory failure with hypoxemia: Plan: Patient is on oxygen 1-2L nasal cannula currently. Monitor and titrate oxygen for FiO2 above 92. Admission and Anticipated Discharge Date Admission Date: June 24, 2022 Subjective Seen for ESRD. She feels better today. No shortness of breath. Patient was seen and examined while on dialysis. Review of Systems Review of Systems: All other systems were reviewed and negative except as noted in HPI Physical Exam Physical Exam: General exam: Appears comfortable, no acute distress HEENT: Pupils are equal and reactive to light Neck: No JVD, neck is supple trachea is midline Respiratory system: Clear breath sounds bilaterally. Gastrointestinal: Abdomen is soft, non distended, non tender, bowel sounds are present CVS: Regular rate and rhythm. No murmurs, rubs or gallops Musculoskeletal: No joint or muscle tenderness Extremities: Non tender, no edema, peripheral pulses are present Neuro: Oriented, no tremors, no focal neurological deficits Skin: No rashes Results & Data ([facility]) Vital Signs (Past 12 Hours) Vital Signs Temp Pulse Pulse Pulse Resp BP BP 07/08/22 11:00 97 H 120/64 07/08/22 10:30 98 H 124/68 07/08/22 10:00 95 H 108/65 07/08/22 08:00 07/08/22 09:30 95 H 110/63 07/08/22 09:15 93 H 116/63 07/08/22 09:04 36.7 C 97 H 07/08/22 08:00 103 H 07/08/22 07:20 36.3 C L 95 H 18 96/61 L 07/08/22 03:30 37.0 C 72 20 131/81 07/08/22 00:23 36.6 C 78 18 119/75 Pulse Ox O2 Del Method O2 Flow Rate 07/08/22 11:00 07/08/22 10:30 07/08/22 10:00 07/08/22 08:00 Nasal Cannula 2 07/08/22 09:30 07/08/22 09:15 07/08/22 09:04 07/08/22 08:00 07/08/22 07:20 98 Nasal Cannula 2 07/08/22 03:30 93 Room Air 07/08/22 00:23 95 Nasal Cannula 2 Laboratory Results 07/03/22 05:27
[2022-07-08] MEDS: LIDOCAINE/PRILOCAINE 2.5% EA CRM EXT SCH (13:38)
--- NOTE | 2022-07-08 13:58 | Hospitalist Progress Note ---
Date of Service July 08, 2022 Assessment & Plan (1) Encephalopathy: Plan: (1) Unresponsiveness: Plan: per Dr. Gerber's notes with addendum: ff up for syncope, delirium, etc Syncope secondary to Hypotension Most likely due to hypotension (SBP in 70s on admission) Started midodrine 5mg PO TID with improved BP AM cortisol normal blood cultures negative History of multiple readmissions for similar 07/04 BP on the lower side today continue Midodrine 5mg TID 07/06 BP stable overall 07/07 BP stable Altered mental status, likely secondary to delirium vs metabolic encephalopathy Multifactorial: Hospital delirium, metabolic encephalopathy 06/28 was noted to have worsening confusion and slurred speech so stroke alert was called CT head negative for acute findings. CTA head/neck shows 80% left ICA stenosis and 50% right ICA stenosis. MRI lobo negative for acute stroke. EEG 06/30 shows moderate encephalopathy but no epileptiform waves ABG unremarkable Folate low (repletion started) B12 normal RPR negative Keppra mildly supratherapeutic (dose adjusted to 500mg BID) Ammonia not elevated but review of CT A/P from 2021 shows nodularity of liver consistent with cirrhosis--> daughter is unaware of this. If ongoing encephalopathy, can consider trial of lactulose 06/28 evening 06/29 evening received olanzapine for agitation--> avoid sedating medications if possible 07/01 evening received Haldol 0.5mg IM 07/04 seems to be improving oriented x 2 today monitor closely Keppra dose elevated at [address] Caraballo Recommend to decrease Keppra dosing by 50% Monitor closely Bilateral lower extremity pain Likely secondary to PRAFO boot We consulted orthotics service for adjustment As needed Tylenol ordered 07/05 No acute events overnight per staffing administrator Mental status seems to be improving, but patient still on the drowsy side Continue melatonin at bedtime Continue to monitor while on the reduced dose of Keppra Bilateral lower extremity pain Orthotics service consulted, adjustments made today Monitor closely 07/06 Mental status improving Continue to monitor 07/07 overnight, patient was agitated again will start Remeron 7.5mg po HS as per Psych 07/08 had a good night continue Remeron Chronic A fib Patient not on anticoagulation secondary to history ICH, history of cerebral amyloid angiopathy was previously on digoxin which was held yesterday due to elevated level (her confusion predated this elevation, prior digoxin levels were within range). Resume digoxin 125mcg on dialysis days (previously was MWF, but per Nephrology it appears they will be moving towards MF dialysis schedule, so will change digoxin to MF dosing) Appreciate Cardiology input, holding metoprolol 07/08 Heart rate controlled hx COPD/nocturnal hypoxemia/pulm hypertension, oxygenation stable --At baseline 3 L of oxygen via nasal cannula hx chronic systolic heart failure --fluid status managed by dialysis hx CAD sp stenting valvular heart disease(severe TR, mild /MR ) -stable currently Seizure -home regime: keppra 500mg BID. Extra 500mg on dialysis days (MWF) after dialysis -while she is not getting dialysis consistently, will be on Keppra 500mg BID. Keppra level was mildly above range but per Neurology not enough to explain her confusion. Repeat level is pending. 07/08 no seizure activity noted since Keppra decreased Management of Keppra per above ESRD on HD -Managed per Nephrology. 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 SQ heparin Disposition pending-Will likely need SNF PT/OT evaluation Admission and Anticipated Discharge Date Admission Date: June 24, 2022 Subjective ff up for confusion, etc seen resting in bed, sleeping but easily awakened comfortable, not in distress denies new symptoms had a good night per RN, no agitation no other symptoms awaiting HD Review of Systems Review of Systems: all noted and negative except for above Physical Exam Physical Exam: General- oriented x 3, not in distress, speaks in sentences with no effort or accessory muscle use Eyes- anicteric Neck- no JVD Lungs- clear BS bilaterally, no rales/wheezes Heart- normal rate, regular rhythm; no murmurs Abdomen- normal bowel sounds, nondistended, soft, no tenderness Extremities- no pretibial edema, no calf tenderness Neuro- alert, oriented x 3; no gross focal neurologic deficits Skin- warm & dry Results & Data Results & Data ([facility]) Vital Signs (Past 12 Hours) Vital Signs Temp Pulse Pulse Pulse Resp BP BP 07/08/22 12:20 36.5 C 102 H 114/61 07/08/22 12:00 98 H 110/68 07/08/22 11:30 98 H 115/71 07/08/22 11:00 97 H 120/64 07/08/22 10:30 98 H 124/68 07/08/22 10:00 95 H 108/65 07/08/22 08:00 07/08/22 09:30 95 H 110/63 07/08/22 09:15 93 H 116/63 07/08/22 09:04 36.7 C 97 H 07/08/22 08:00 103 H 07/08/22 07:20 36.3 C L 95 H 18 96/61 L 07/08/22 03:30 37.0 C 72 20 131/81 Pulse Ox O2 Del Method O2 Flow Rate 07/08/22 12:20 07/08/22 12:00 07/08/22 11:30 07/08/22 11:00 07/08/22 10:30 07/08/22 10:00 07/08/22 08:00 Nasal Cannula 2 07/08/22 09:30 07/08/22 09:15 07/08/22 09:04 07/08/22 08:00 07/08/22 07:20 98 Nasal Cannula 2 07/08/22 03:30 93 Room Air all noted and reviewed including below
[2022-07-08] MEDS: DIGOXIN 0.125 MG TAB PO SCH (16:53)
[2022-07-08] MEDS: CALCITRIOL 0.25 MCG CAPSULE PO SCH (16:55)
[2022-07-08] MEDS ORDERED: levETIRAcetam 250 MG TAB PO SCH (17:00)
[2022-07-08] MEDS: MIRTAZAPINE TAB 15 MG TAB PO SCH (19:54)
[2022-07-08] MEDS: ACETAMINOPHEN 325 MG TAB PO PRN (19:57)
--- NOTE | 2022-07-09 01:14 | Communication Note ---
Date of Service: July 09, 2022 Patient with runs of VT in early a.m. Asymptomatic as per RN. Serum magnesium 1.6 serum digoxin 2.6 AP NSVT Hypomagnesemia Supratherapeutic digoxin level, recurrent issue, serum digoxin elevated at 3.1 last 3/3 Resume low beta-marlee Consider increasing midodrine dose if BP lowered by low dose beta-marlee Rx Digibind now, hold digoxin and recheck level tomorrow morning Will request AM provider to contact Cardiology regarding future dosing of digoxin given recurrent supratherapeutic levels
[2022-07-09] MEDS: METOPROLOL TARTRATE 25 MG TAB PO SCH ×3 (01:27→16:35)
[2022-07-09 01:35] LABS: Basophils # (auto) 0.09 K/uL (0-0.2); Basophils % (auto) 0.6 %; Eosinophils # (auto) 0.08 K/uL (0-0.50); Eosinophils % (auto) 0.5 %; Hematocrit (blood only) 31.6 % (37.0-47.0); Hemoglobin 10.2 g/dl (12.0-16.0); Immature Granulocytes # (auto) 0.11 K/uL (0.01-0.20); Immature Granulocytes % (auto) 0.7 %; Lymphocytes # (auto) 1.76 K/uL (1.2-3.4); Lymphocytes % (auto) 11.9 %; Mean Corpuscular Hemoglobin 34.1 pg (25.0-34.0); Mean Corpuscular Hgb Conc 32.3 g/dL (32.0-36.0); Mean Corpuscular Volume 105.7 fL (80.0-100.0); Mean Platelet Volume 11.8 fL (9.4-12.4); Monocytes # (auto) 1.52 K/uL (0.11-0.59); Monocytes % (auto) 10.3 %; Neutrophils # (auto) 11.17 K/uL (1.40-6.50); Nucleated RBC # (auto) 0.23 K/uL (0-0.12); Nucleated RBC % (auto) 1.6 %; Platelet Count 184 K/uL (130-400); RDW Coefficient of Variation 20.8 % (11.5-14.5); Red Blood Count 2.99 M/uL (4.20-5.40); White Blood Count 14.73 K/ul (4.8-10.8)
[2022-07-09 01:50] LABS: BUN Creatinine Ratio 12.5 (10-20); Creatinine Clr Calc Pharmacy 15.5 ml/min; Est GFR (African American) 16.8 ml/min; Est GFR (Non-African American) 14.5 ml/min; Magnesium 1.9 mg/dl (1.7-2.4); Potassium 3.6 mmol/L (3.5-5.1)
[2022-07-09 01:54] LABS: Anisocytosis Present; Ovalocytes 1+; Polychromasia 2+
[2022-07-09] MEDS ORDERED: MAGNESIUM SULFATE / D5W 1 GM/100 ML BAG IV ONE ×2 (01:59→22:59)
[2022-07-09] MEDS ORDERED: DIGOXIN IMMUNE FAB (OVINE) 80 MG in 0.9 % SODIUM CHLORIDE 100 ML IV ONE (02:15)
[2022-07-09] MEDS ORDERED: MAGNESIUM OXIDE 400 MG TAB PO STA (02:43)
[2022-07-09] MEDS ORDERED: ALBUMIN 25% 100 mL 25 GM/100 ML VIAL IV ONE (04:47)
[2022-07-09] MEDS: MIDODRINE HCL 2.5 MG TAB PO SCH ×3 (05:02→16:35)
[2022-07-09] MEDS: LIDOCAINE 5% 1 PATCH TD SCH ×2 (08:54→08:58)
[2022-07-09] MEDS: TRIMETHOPRIM/POLYMYXIN B OP SCH ×5 (08:54→20:47)
[2022-07-09] MEDS: allopurinoL 300 MG TAB PO SCH (08:55)
[2022-07-09] MEDS: GLUCOSAMINE SULFATE 500 MG CAP PO SCH (08:56)
[2022-07-09] MEDS: ASPIRIN 81 MG ECTAB PO SCH (08:56)
[2022-07-09] MEDS: HEPARIN SOD 5,000 UNIT/0.5 ML VIAL SQ SCH ×2 (08:56→20:19)
[2022-07-09] MEDS: ATORVASTATIN 40 MG TAB PO SCH (08:56)
[2022-07-09] MEDS: ADVANCED PROBIOTIC 1250 MG CAPSULE PO SCH (08:56)
[2022-07-09] MEDS: levETIRAcetam 250 MG TAB PO SCH ×2 (08:56→20:19)
[2022-07-09] MEDS: ACETAMINOPHEN 325 MG TAB PO PRN (13:57)
--- NOTE | 2022-07-09 14:32 | Hospitalist Progress Note ---
Date of Service July 09, 2022 Assessment & Plan (1) Encephalopathy: Plan: (1) Unresponsiveness: Plan: per Dr. Gerber's notes with addendum: ff up for syncope, delirium, etc Syncope secondary to Hypotension Most likely due to hypotension (SBP in 70s on admission) Started midodrine 5mg PO TID with improved BP AM cortisol normal blood cultures negative History of multiple readmissions for similar 07/09 BP on the lower side Metoprolol resumed for episode of NSVT continue Midodrine monitor Altered mental status, likely secondary to delirium vs metabolic encephalopathy Multifactorial: Hospital delirium, metabolic encephalopathy 06/28 was noted to have worsening confusion and slurred speech so stroke alert was called CT head negative for acute findings. CTA head/neck shows 80% left ICA stenosis and 50% right ICA stenosis. MRI lobo negative for acute stroke. EEG 06/30 shows moderate encephalopathy but no epileptiform waves ABG unremarkable Folate low (repletion started) B12 normal RPR negative Keppra mildly supratherapeutic (dose adjusted to 500mg BID) Ammonia not elevated but review of CT A/P from 2021 shows nodularity of liver consistent with cirrhosis--> daughter is unaware of this. If ongoing encephalopathy, can consider trial of lactulose 06/28 evening 06/29 evening received olanzapine for agitation--> avoid sedating medications if possible 07/01 evening received Haldol 0.5mg IM Keppra dose elevated at [address] Caraballo Recommend to decrease Keppra dosing by 50% Monitor closely 07/09 patient was confused again, awake last night increase Remeron to 15mg po daily Bilateral lower extremity pain consulted orthotics service for adjustment of PRAFO boot (+) bliateral eschar heels, open wounds achilles tendon area--> no signs of infection; will consult podiatry and request wound care re-eval As needed Tylenol ordered Chronic A fib Patient not on anticoagulation secondary to history ICH, history of cerebral amyloid angiopathy 07/09 (+) NSVT overnight Metoprolol resumed--> now on Metoprolol tartrate 12.5mg po BID Digoxin level elevated given Digibind repeat Digoxin level monday before HD may need to reduce digoxin 0.125mcg m/w/f to m/f hx COPD/nocturnal hypoxemia/pulm hypertension, oxygenation stable --At baseline 3 L of oxygen via nasal cannula hx chronic systolic heart failure --fluid status managed by dialysis hx CAD sp stenting valvular heart disease(severe TR, mild /MR ) -stable currently Seizure -home regime: keppra 500mg BID. Extra 500mg on dialysis days (MWF) after dialysis -while she is not getting dialysis consistently, will be on Keppra 500mg BID. Keppra level was mildly above range but per Neurology not enough to explain her confusion. Repeat level is pending. 07/09 no seizure activity noted since Keppra decreased Management of Keppra per above ESRD on HD -Managed per Nephrology. 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 SQ heparin Disposition pending-Will need SNF PT/OT evaluation Admission and Anticipated Discharge Date Admission Date: June 24, 2022 Subjective ff up for hypotension, delirium, etc overnight patient was again confused noted to have several episodes of NSVT today patient awake, oriented x 2 denies pain, SOB ate all dinner last night, appetite not great today denies leg or foot pain no other symptoms Review of Systems Review of Systems: all noted and negative except for above Physical Exam Physical Exam: General- oriented x 2, not in distress, speaks in sentences with no effort or accessory muscle use Eyes- anicteric Neck- no JVD Lungs- clear breath sounds bilaterally, no rales/wheezes Heart- normal rate, regular rhythm; no murmurs Abdomen- normal bowel sounds, nondistended, soft, nontender Extremities- no pretibial edema, no calf tenderness R heel: (+) eschar (+) open wound- achilles tendon area no signs of infection L heel: (+) open wound- achilles tendon area no signs of infection Neuro- alert, oriented x 2; no new gross focal neurologic deficits Skin- warm & dry Results & Data Results & Data ([facility]) Vital Signs (Past 12 Hours) Vital Signs Temp Pulse Pulse Pulse Resp BP Pulse Ox 07/09/22 11:04 37 C 98 H 19 86/56 L 92 07/09/22 08:00 07/09/22 07:41 98 H 95/62 L 07/09/22 07:22 37 C 101 H 19 89/55 L 95 07/09/22 07:16 82 07/09/22 05:18 98 H 112/69 07/09/22 04:48 88 95/62 L 07/09/22 04:41 75 99/65 L 07/09/22 03:48 90 105/68 07/09/22 03:33 101 H 111/67 07/09/22 03:18 94 H 122/77 07/09/22 03:06 36.5 C 86 18 109/75 97 O2 Del Method 07/09/22 11:04 Room Air 07/09/22 08:00 Room Air 07/09/22 07:41 07/09/22 07:22 Room Air 07/09/22 07:16 07/09/22 05:18 07/09/22 04:48 07/09/22 04:41 07/09/22 03:48 07/09/22 03:33 07/09/22 03:18 07/09/22 03:06 Room Air all noted and reviewed including below
[2022-07-09] MEDS: MIRTAZAPINE TAB 15 MG TAB PO SCH (20:19)
[2022-07-09] MEDS ORDERED: METOPROLOL TARTRATE 25 MG TAB PO STA (22:57)
[2022-07-10 00:20] LABS: BUN Creatinine Ratio 15.1 (10-20); Calcium 9.7 mg/dl (8.5-10.1); Creatinine Clr Calc Pharmacy 11.8 ml/min; Est GFR (African American) 12.3 ml/min; Est GFR (Non-African American) 10.6 ml/min; Magnesium 2.4 mg/dl (1.7-2.4); Potassium 3.8 mmol/L (3.5-5.1)
[2022-07-10] MEDS: MIDODRINE HCL 2.5 MG TAB PO SCH ×3 (08:41→16:44)
[2022-07-10] MEDS: ASPIRIN 81 MG ECTAB PO SCH (08:42)
[2022-07-10] MEDS: allopurinoL 300 MG TAB PO SCH (08:42)
[2022-07-10] MEDS: ATORVASTATIN 40 MG TAB PO SCH (08:42)
[2022-07-10] MEDS: ADVANCED PROBIOTIC 1250 MG CAPSULE PO SCH (08:43)
[2022-07-10] MEDS: GLUCOSAMINE SULFATE 500 MG CAP PO SCH (08:43)
[2022-07-10] MEDS: levETIRAcetam 250 MG TAB PO SCH ×2 (08:43→20:21)
[2022-07-10] MEDS: METOPROLOL TARTRATE 25 MG TAB PO SCH ×2 (08:44→20:21)
[2022-07-10] MEDS: TRIMETHOPRIM/POLYMYXIN B OP SCH ×4 (08:44→20:22)
[2022-07-10] MEDS: HEPARIN SOD 5,000 UNIT/0.5 ML VIAL SQ SCH ×2 (08:45→20:20)
[2022-07-10] MEDS: LIDOCAINE 5% 1 PATCH TD SCH ×2 (08:53)
[2022-07-10] MEDS ORDERED: SODIUM CHLORIDE 0.9% 1000ML 1,000 ML IV PRN (10:00)
--- NOTE | 2022-07-10 11:36 | Podiatry Consultation ---
Date of Consultation July 10, 2022 Assessment & Plan (1) Ulcer of right heel: Patient seen, evaluated, and treated. Wounds appear stable, no signs of infection. Offloading is an important part of Patients management. Continue in off loading PRAFO boots. Continue dressing changes including Ag Aquacel and Foam. (2) Ulcer of left heel: History of Present Illness Attending Physician: Jaylen Rudolph MD History of Present Illness Patient is a type II diabetic 76 year old female seen at bedside for right and left heel wounds. Patient is able to confirm her name. Previous documentation was reviewed. Patient has a complex PMH. Patient is a resident at [facility] and was admitted on 06/24 for stroke like symptoms. Allergies Allergy/AdvReac Type Severity Reaction Status Date / Time verapamil Allergy Unknown ON [facility] Verified 06/24/22 17:55 [facility] lisinopril AdvReac Intermediate COUGH Verified 06/24/22 17:55 Home Medications Medication Instructions Recorded Confirmed Type lidocaine-prilocaine 2.5 %-2.5 % 1 applic topical 3XWK 02/25/22 06/24/22 History topical cream allopurinol 300 mg tablet 450 mg PO DAILY #45 tabs 03/01/22 06/24/22 Rx aspirin 81 mg tablet,delayed 162 mg PO DAILY #30 tabs 03/01/22 06/24/22 Rx release atorvastatin 80 mg tablet 80 mg PO DAILY #30 tabs 03/01/22 06/24/22 Rx calcitriol 0.5 mcg capsule 0.5 mcg PO 3XWK #12 caps 03/01/22 06/24/22 Rx docusate sodium 100 mg capsule 200 mg PO DAILY #60 caps 03/01/22 06/24/22 Rx (Colace) glucosamine [id number] 1 tab PO DAILY #30 tabs 03/01/22 06/24/22 Rx rhiannon 1,500 mg-400 unit-100 mg tablet (Glucosamine Daily Complex) digoxin 125 mcg (0.125 mg) tablet 125 mcg PO 3XWK 06/24/22 06/24/22 History levetiracetam 500 mg tablet 500 mg PO 3XWK 06/24/22 06/24/22 History levetiracetam 500 mg tablet 500 mg PO 4XWK 02/24/23 02/24/23 History metoprolol succinate 25 mg 25 mg PO 4XWK 06/24/22 06/24/22 History tablet,extended release 24 hr nutritional supplements 1 ea PO DAILY 06/24/22 06/24/22 History Patient History Medical History Acromioclavicular joint separation Acute and chronic respiratory failure Atrial fibrillation CAD (coronary artery disease) "LEONA to LAD cath 2014 - moderate non obstructive disease" Carotid stenosis, bilateral Cerebral amyloid angiopathy ++cognitive impairment Clavicle fracture Closed left fibular fracture Contraindication to anticoagulation therapy Depression DM type 2 (diabetes mellitus, type 2) Dyslipidemia End stage renal disease Falls frequently Fracture, humerus GERD (gastroesophageal reflux disease) HTN (hypertension) IBS (irritable bowel syndrome) Nontraumatic intracerebral hemorrhage Palliative care encounter Pressure injury of back, unstageable Pulmonary hypertension assoc w/pulmonary Langerhans cell histiocytosis Pulmonary hypertension due to COPD Seizure disorder Surgical History AV fistula H/O sinus surgery History of total left knee replacement S/P cholecystectomy Social History Smoking Status: Never smoker Second Hand Exposure: Yes; Hx Alcohol Use: No Hx Substance Use: No Preferred Language: Egyptian Communication Ability: Unable [employer] Supervisor Required: No Beliefs That Will Affect Care: Sabianist marital status: / Current Living Situation: Half-Way Current Living Situation Comment: lives alone Other Information That Helps Us Care for You: No Feels Safe at Home: Yes Safety Concerns: Feels Safe At This Time Assistive Devices: Oxygen - Continuous and Wheelchair Review of Systems Review of Systems: All systems reviewed & are unremarkable except as noted in HPI & below Physical Exam Constitutional: + altered mental status Respiratory: No labored breathing Cardiovascular: Rate/Rhythm: regular rate Musculoskeletal: No gross deformities Skin: Full thickness right heel retro calcaneal wound and Achilles tendon wound. Eschar noted on both right and left retro calcaneal heel ulcers. No signs of infection. Wounds appear stable. Neurologic: Absent epicritic sensation Psychiatric: Orientation: alert and oriented to person Results & Data ([facility]) Vital Signs (Past 12 Hours) Vital Signs Temp Pulse Pulse Pulse Resp BP Pulse Ox 07/10/22 10:53 102 H 07/10/22 10:07 07/10/22 08:14 36.8 C 96 H 19 109/71 93 07/10/22 03:20 36.7 C 82 18 103/66 93 07/09/22 23:26 96 H 117/71 07/09/22 22:46 36.9 C 90 18 104/67 96 O2 Del Method 07/10/22 10:53 07/10/22 10:07 Room Air 07/10/22 08:14 Room Air 07/10/22 03:20 Room Air 07/09/22 23:26 07/09/22 22:46 Room Air
--- NOTE | 2022-07-10 15:21 | Hospitalist Progress Note ---
Date of Service July 10, 2022 delayed entry date of service noted above Assessment & Plan (1) Encephalopathy: Plan: (1) Unresponsiveness, Syncope secondary to Hypotension: Plan: per Dr. Gerber's notes with addendum: Syncope secondary to Hypotension Most likely due to hypotension (SBP in 70s on admission) Started midodrine 5mg PO TID with improved BP AM cortisol normal blood cultures negative History of multiple readmissions for similar 07/10 BP on the lower side usual Metoprolol XL 25mg tues/th/sat resumed for episode of NSVT while admitted continue Midodrine 5mg TID monitor Altered mental status, likely secondary to delirium vs metabolic encephalopathy Multifactorial: Hospital delirium, metabolic encephalopathy 06/28 was noted to have worsening confusion and slurred speech so stroke alert was called CT head negative for acute findings. CTA head/neck shows 80% left ICA stenosis and 50% right ICA stenosis. MRI lobo negative for acute stroke. EEG 06/30 shows moderate encephalopathy but no epileptiform waves ABG unremarkable Folate low (repletion started) B12 normal RPR negative Ammonia not elevated but review of CT A/P from 2021 shows nodularity of liver consistent with cirrhosis--> daughter is unaware of this. If ongoing encephalopathy, can consider trial of lactulose 06/28 evening 06/29 evening received olanzapine for agitation--> avoid sedating medications if possible Keppra dose elevated at [address] Caraballo Recommend to decrease Keppra dosing by 50% 07/10 since Keppra dose decreased, mental seems to be more back to baseline patient still having episodes of confusion, mostly in the night increase Remeron 7.5 mg, recommended by Psych, to 15mg po daily monitor closely Bilateral Heel Wounds, Pressure ulcer no signs of infection consulted orthotics service --> PRAFO boots placed, also has been adjusted s econdary to pain (+) bliateral eschar heels, open wounds achilles tendon area--> no signs of infection; will consult podiatry and request wound care re-eval As needed Tylenol ordered Chronic A fib Patient not on anticoagulation secondary to history ICH, history of cerebral amyloid angiopathy 07/10 (+) NSVT past 2 nights usual Metoprolol XL 3x week resumed Digoxin level elevated 3.1 per Deployment Technician, patient's confusion predates digoxin elevation, no changes with Digoxin recommended by Cardio given Digibind evening of 07/09 for Digoxin level 2.6, repeat level today 10.8--> falsely high secondary to Digibind may need to reduce digoxin 0.125mcg m/w/f to /, discuss with Cardiology hx COPD/nocturnal hypoxemia/pulm hypertension, oxygenation stable --At baseline 3 L of oxygen via nasal cannula hx chronic systolic heart failure --fluid status managed by dialysis hx CAD sp stenting valvular heart disease(severe TR, mild /MR ) -stable currently Seizure -home regime: keppra 500mg BID. Extra 500mg on dialysis days (MWF) after dialysis Keppra level 80s, reduce keppra by 50% per Neuro 07/10 no seizure activity noted since Keppra decreased Management of Keppra per above ESRD on HD -Managed per Nephrology. 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 SQ heparin Disposition pending-Will need SNF PT/OT evaluation Admission and Anticipated Discharge Date Admission Date: June 24, 2022 Subjective ff up for syncope, hypotension; altered mental status, etc was awake again most of the night seen resting in bed, comfortable smiling, oriented x 2 occasionally gets confused but easily redirected no chest pain, dyspnea, palpitations, dizziness denies pain appetite ok today noted to be coughing when drinking from straw no other symptom Review of Systems Review of Systems: all noted and negative except for above Physical Exam Physical Exam: General- oriented x 2, not in distress, speaks in sentences with no effort or accessory muscle use Eyes- anicteric Neck- no JVD Lungs- clear BS bilaterally, no rales/wheezes Heart- normal rate, regular rhythm; no murmurs Abdomen- normal bowel sounds, nondistended, soft, no tenderness Extremities- no pretibial edema, no calf tenderness (+) orthotic boots BL heel wounds: dressings in place Neuro- alert, oriented x 2; no new gross focal neurologic deficits Skin- warm & dry Results & Data Results & Data ([facility]) Vital Signs (Past 12 Hours) Vital Signs Temp Pulse Pulse Pulse Resp BP Pulse Ox 07/10/22 11:37 36.7 C 91 H 18 97/62 L 97 07/10/22 10:53 102 H 07/10/22 10:07 07/10/22 08:14 36.8 C 96 H 19 109/71 93 07/10/22 03:20 36.7 C 82 18 103/66 93 O2 Del Method 07/10/22 11:37 Room Air 07/10/22 10:53 07/10/22 10:07 Room Air 07/10/22 08:14 Room Air 07/10/22 03:20 Room Air all noted and reviewed including below
[2022-07-10] MEDS: ACETAMINOPHEN 325 MG TAB PO PRN (19:38)
[2022-07-10] MEDS: MIRTAZAPINE TAB 15 MG TAB PO SCH (20:22)
[2022-07-11] MEDS ORDERED: SODIUM CHLORIDE 0.9% 1000ML 1,000 ML IV PRN ×2 (07:00→08:06)
[2022-07-11] MEDS: MIDODRINE HCL 2.5 MG TAB PO SCH ×3 (08:24→16:50)
[2022-07-11] MEDS: allopurinoL 300 MG TAB PO SCH (08:25)
[2022-07-11] MEDS: ASPIRIN 81 MG ECTAB PO SCH (08:25)
[2022-07-11] MEDS: GLUCOSAMINE SULFATE 500 MG CAP PO SCH (08:26)
[2022-07-11] MEDS: levETIRAcetam 250 MG TAB PO SCH ×3 (08:27→21:45)
[2022-07-11] MEDS: HEPARIN SOD 5,000 UNIT/0.5 ML VIAL SQ SCH ×2 (08:28→21:45)
[2022-07-11] MEDS: LIDOCAINE 5% 1 PATCH TD SCH ×2 (08:28→08:29)
[2022-07-11] MEDS: ADVANCED PROBIOTIC 1250 MG CAPSULE PO SCH (08:33)
[2022-07-11] MEDS: TRIMETHOPRIM/POLYMYXIN B OP SCH ×4 (08:35→21:46)
[2022-07-11] MEDS: LIDOCAINE/PRILOCAINE 2.5% EA CRM EXT SCH (08:37)
--- NOTE | 2022-07-11 09:50 | Nephrology Progress Note ---
Date of Service July 11, 2022 Assessment & Plan (1) Hypotension: Plan: ongoing hypotension despite holding HD -last TTE in May w/ new/large wall motion abnormality and newly decreased left ventricular systolic function. Blood pressure is stable today Continue midodrine 5 mg 3 times daily. Patient can receive an extra 5 mg on dialysis days as needed (2) End stage renal disease: Plan: ESRD on dialysis Monday. Her last outpatient dialysis was on 06/24/2022. patient admitted after episode of unresponsiveness occurring a few hours after returning from dialysis. Electrolytes are stable and no signs of volume overload. UF Limited by hypotension; obligate BB d/t HR > Patient tolerating dialysis well today with target UF of 2 L. -From renal standpoint patient can be discharged after dialysis (3) Acute on chronic respiratory failure with hypoxemia: Plan: Patient is maintaining good saturation off oxygen. Admission and Anticipated Discharge Date Admission Date: June 24, 2022 Subjective a/w for syncope, hypotension; altered mental status, etc was awake again most of the night Oriented x 2 occasionally gets confused but easily redirected no other symptom Review of Systems Review of Systems: All other systems were reviewed and negative except as noted in HPI Physical Exam Physical Exam: General exam: Appears comfortable, no acute distress, Ocasionally confused. HEENT: Pupils are equal and reactive to light Neck: No JVD, neck is supple trachea is midline Respiratory system: Clear breath sounds bilaterally. Gastrointestinal: Abdomen is soft, non distended, non tender, bowel sounds are present CVS: Regular rate and rhythm. No murmurs, rubs or gallops Musculoskeletal: No joint or muscle tenderness Extremities: Non tender, no edema, peripheral pulses are present Results & Data ([facility]) Vital Signs (Past 12 Hours) Vital Signs Temp Pulse Pulse Resp BP Pulse Ox O2 Del Method 07/11/22 08:22 36.7 C 94 H 18 115/68 95 Room Air 07/11/22 02:28 36.5 C 95 H 18 107/71 92 Room Air 07/10/22 22:05 92 H 07/10/22 22:06 36.5 C 89 18 100/51 L 95 Room Air Laboratory Results 07/09/22 01:21 07/09/22 23:27 Diagnostic Findings 07/09/22 01:21 07/09/22 23:27
[2022-07-11] MEDS: ATORVASTATIN 40 MG TAB PO SCH (13:02)
--- NOTE | 2022-07-11 14:48 | Hospitalist Progress Note ---
Date of Service July 11, 2022 Assessment & Plan (1) Encephalopathy: Plan: (1) Unresponsiveness, Syncope secondary to Hypotension: Plan: Syncope secondary to Hypotension Most likely due to hypotension (SBP in 70s on admission) Started midodrine 5mg PO TID with improved BP AM cortisol normal blood cultures negative History of multiple readmissions for similar Metoprolol XL 25 mg 3 times weekly resumed due to episode of NSVT Altered mental status, likely secondary to delirium vs metabolic encephalopathy Multifactorial: Hospital delirium, metabolic encephalopathy 06/28 was noted to have worsening confusion and slurred speech so stroke alert was called CT head negative for acute findings. CTA head/neck shows 80% left ICA stenosis and 50% right ICA stenosis. MRI lobo negative for acute stroke. EEG 06/30 shows moderate encephalopathy but no epileptiform waves ABG unremarkable Folate low (repletion started) B12 normal RPR negative Ammonia not elevated 06/28 evening 06/29 evening received olanzapine for agitation--> avoid sedating medications if possible Keppra dose elevated at [address] Caraballo Recommend to decrease Keppra dosing by 50%. Mentation improved with reduction in dose of Keppra. Remeron increased to 50 mg p.o. daily as recommended by psych Digoxin level elevated 3.1 per Veterinary Assistant Technician, patient's confusion predates digoxin elevation, no changes with Digoxin recommended by Cardio given Digibind evening of 07/09 for Digoxin level 2.6, repeat level today 10.8--> falsely high secondary to Digibind Digoxin dose decreased to 0.0625 given ESRD on HD status. Bilateral Heel Wounds, Pressure ulcer no signs of infection consulted orthotics service --> PRAFO boots placed, also has been adjusted secondary to pain (+) bliateral eschar heels, open wounds achilles tendon area--> no signs of infection; podiatry consulted; recommend offloading; continue dressing changes including AG aquacell and foam As needed Tylenol ordered Chronic A fib Patient not on anticoagulation secondary to history ICH, history of cerebral amyloid angiopathy hx COPD/nocturnal hypoxemia/pulm hypertension, oxygenation stable --At baseline 3 L of oxygen via nasal cannula hx chronic systolic heart failure --fluid status managed by dialysis hx CAD sp stenting valvular heart disease(severe TR, mild /MR ) -stable currently Seizure -home regime: keppra 500mg BID. Extra 500mg on dialysis days (MWF) after dialysis Keppra level 80s, reduce keppra by 50% per Neuro ESRD on HD -Managed per Nephrology. 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 SQ heparin Disposition-discharge back to [facility] tomorrow AM. Admission and Anticipated Discharge Date Admission Date: June 24, 2022 Subjective Patient seen and examined during dialysis. She is lying comfortably on the bed; not in distress. She is oriented to self and place. Discussed with granddaughter at bedside in the afternoon regarding her baseline mental status; patient appears to be near to her baseline mentation presently. Review of Systems Review of Systems: All systems reviewed & are unremarkable except as noted in Subjective Physical Exam Physical Exam: General- oriented x 2, not in distress, speaks in sentences with no effort or accessory muscle use Eyes- anicteric Neck- no JVD Lungs- clear BS bilaterally, no rales/wheezes Heart- normal rate, regular rhythm; no murmurs Abdomen- normal bowel sounds, nondistended, soft, no tenderness Extremities- no pretibial edema, no calf tenderness (+) orthotic boots BL heel wounds: dressings in place Neuro- alert, oriented x 2; no new gross focal neurologic deficits Skin- warm & dry Results & Data Results & Data ([facility]) Vital Signs (Past 12 Hours) Vital Signs Temp Pulse Pulse Pulse Resp BP BP 07/11/22 12:32 36.9 C 103 H 19 110/67 07/11/22 12:20 36.5 C 97 H 126/67 07/11/22 12:00 96 H 106/74 07/11/22 11:30 100 H 104/67 07/11/22 11:00 96 H 116/60 07/11/22 10:30 101 H 100/55 L 07/11/22 10:00 97 H 107/70 07/11/22 09:30 109 H 100/71 07/11/22 09:15 103 H 120/68 07/11/22 09:10 36.6 C 105 H 07/11/22 08:22 36.7 C 94 H 18 115/68 Pulse Ox O2 Del Method 07/11/22 12:32 99 Room Air 07/11/22 12:20 07/11/22 12:00 07/11/22 11:30 07/11/22 11:00 07/11/22 10:30 07/11/22 10:00 07/11/22 09:30 07/11/22 09:15 07/11/22 09:10 07/11/22 08:22 95 Room Air Laboratory Results Laboratory Results WBC 14.73 K/ul (4.8-10.8) H 07/09/22 01:21 RBC 2.99 M/uL (4.20-5.40) L 07/09/22 01:21 Hgb 10.2 g/dl (12.0-16.0) L 07/09/22 01:21 POC Hgb 17.7 g/dl (12.0-16.0) H 06/24/22 20:32 Hct 31.6 % (37.0-47.0) L 07/09/22 01:21 POC Hct 52 % (37-47) H 06/24/22 20:32 MCV 105.7 fL (80.0-100.0) H 07/09/22 01:21 MCH 34.1 pg (25.0-34.0) H 07/09/22 01:21 MCHC 32.3 g/dL (32.0-36.0) 07/09/22 01:21 RDW Std Deviation 79.0 fL (36.4-46.3) H 07/09/22 01:21 RDW Coeff of Edin 20.8 % (11.5-14.5) H 07/09/22 01:21 Plt Count 184 K/uL (130-400) 07/09/22 01:21 MPV 11.8 fL (9.4-12.4) 07/09/22 01:21 Immature Gran % (Auto) 0.7 % 07/09/22 01:21 Neut % (Auto) 76.0 % 07/09/22 01:21 Lymph % (Auto) 11.9 % 07/09/22 01:21 [place] % (Auto) 10.3 % 07/09/22 01:21 Eos % (Auto) 0.5 % 07/09/22 01:21 Baso % (Auto) 0.6 % 07/09/22 01:21 Neut # (Auto) 11.17 K/uL (1.40-6.50) H 07/09/22 01:21 Lymph # (Auto) 1.76 K/uL (1.2-3.4) 07/09/22 01:21 [place] # (Auto) 1.52 K/uL (0.11-0.59) H 07/09/22 01:21 Eos # (Auto) 0.08 K/uL (0-0.50) 07/09/22 01:21 Baso # (Auto) 0.09 K/uL (0-0.2) 07/09/22 01:21 Immature Gran # (Auto) 0.11 K/uL (0.01-0.20) 07/09/22 01:21 Absolute Nucleated RBC 0.23 K/uL (0-0.12) H 07/09/22 01:21 Nucleated RBC % (auto) 1.6 % 07/09/22 01:21 Polychromasia 2+ 07/09/22 01:21 Anisocytosis Present 07/09/22 01:21 Ovalocytes 1+ 07/09/22 01:21 PT 11.4 Seconds (9.0-12.0) 06/24/22 17:12 INR 1.1 (0.9-1.1) 06/24/22 17:12 APTT 24.4 Seconds (21.0-31.0) 06/24/22 17:12 PTT Ratio 0.9 06/24/22 17:12 ABG pH 7.37 (7.35-7.45) 06/29/22 21:47 ABG pCO2 51 mmHg (35-46) H 06/29/22 21:47 ABG pO2 156 mmHg (80-95) H 06/29/22 21:47 ABG HCO3 30 mmol/L (19-24) H 06/29/22 21:47 ABG O2 Saturation > 100.0 % (90-95) H 06/29/22 21:47 ABG Base Excess 3.1 mEq/L (-9-1.8) H 06/29/22 21:47 Ethan Test pos (Pos) 06/29/22 21:47 Oxygen Given 3 06/29/22 21:47 POC Sodium 141 mmol/L (135-144) 06/24/22 20:32 Sodium 139 mmol/L (136-145) 07/09/22 23:27 POC Potassium 3.1 mmol/L (3.3-5.0) L 06/24/22 20:32 Potassium 3.8 mmol/L (3.5-5.1) 07/09/22 23:27 POC Chloride 98 mmol/L (101-112) L 06/24/22 20:32 Chloride 96 mmol/L (98-107) L 07/09/22 23:27 Carbon Dioxide 32 mmol/L (21-32) 07/09/22 23:27 POC Total CO2 28 mmol/L (24-31) 06/24/22 20:32 Anion Gap 11 (3-11) 07/09/22 23: POC Anion Gap 20.0 mmol/L (16-25) 06/24/22 20:32 POC BUN 16 mg/dl (7-18) 06/24/22 20:32 BUN 58 mg/dl (6-23) H D 07/09/22 23:27 Creatinine 3.84 mg/dl (0.6-1.2) H D 07/09/22 23:27 POC Creatinine 1.8 mg/dl (0.6-1.3) H 06/24/22 20:32 Est Cr Clr Drug Dosing 11.8 ml/min 07/09/22 23:27 Est GFR ( Amer) 12.3 ml/min 07/09/22 23:27 Est GFR (Non-Af Amer) 10.6 ml/min 07/09/22 23:27 BUN/Creatinine Ratio 15.1 (10-20) 07/09/22 23:27 Glucose 137 mg/dl (70-99(Fasting)) H 07/09/22 23:27 POC Glucose 142 mg/dl (70-99) H 07/02/22 20:18 POC Glucose (other) 186 mg/dl (70-99) H 06/24/22 20:32 Lactate 2.0 mmol/L (0.4-2.0) 07/09/22 23:27 Calcium 9.7 mg/dl (8.5-10.1) 07/09/22 23:27 POC Ioniz Calcium [place] 1.08 mmol/l (1.12-1.32) L 06/24/22 20:32 Magnesium 2.4 mg/dl (1.7-2.4) 07/09/22 23:27 Total Bilirubin 0.5 mg/dl (0.2-1.0) 07/03/22 05:27 AST 19 U/L (13-39) 07/03/22 05:27 ALT 8 U/L (7-52) 07/03/22 05:27 Alkaline Phosphatase 59 U/L (34-104) 07/03/22 05:27 Ammonia 45.0 umol/L (18-72) 06/29/22 21:48 Troponin I High Sens 380.5 pg/ml (0-14) H* D 06/25/22 06:31 Total Protein 5.8 gm/dl (6.0-8.3) L 07/03/22 05:27 Albumin 3.1 gm/dl (3.4-5.0) L 07/03/22 05:27 Globulin 2.7 gm/dl (2.5-4.0) 07/03/22 05:27 Albumin/Globulin Ratio 1.1 (0.9-2) 07/03/22 05:27 Triglycerides 157 mg/dl (0-150) H 06/29/22 05:26 Cholesterol 113 mg/dl (0-200) 06/29/22 05:26 LDL Cholesterol, Calc 57 mg/dl 06/29/22 05:26 VLDL Cholesterol, Calc 31 mg/dl (0-30) H 06/29/22 05:26 HDL Cholesterol 25 mg/dl 06/29/22 05:26 Cholesterol/HDL Ratio 4.5 (0-5) 06/29/22 05:26 Vitamin B12 655 pg/ml (180-914) 06/29/22 21:47 Folate 3.82 ng/ml (>5.38) L 06/29/22 21:47 TSH 4.693 uIu/ml (0.300-4.500) H 06/29/22 21:47 Free T4 0.80 ng/dl (0.61-1.60) 06/29/22 21:47 Cortisol AM Sample 20.13 mcg/dl (6.2-22.6) 06/28/22 07:16 Urine Color [place] 06/24/22 17:40 Urine Appearance Turbid (Clear) A 06/24/22 17:40 Urine pH 8.0 (4.5-7.5) H 06/24/22 17:40 Ur Specific [place] 1.017 (1.000-1.030) 06/24/22 17:40 Urine Protein 3+ (Negative) H 06/24/22 17:40 Urine Glucose (UA) Negative (Negative) 06/24/22 17:40 Urine Ketones Negative (Negative) 06/24/22 17:40 Urine Blood 3+ (Negative) H 06/24/22 17:40 Urine Nitrite Positive (Negative) A 06/24/22 17:40 Urine Bilirubin Negative (Negative) 06/24/22 17:40 Urine Urobilinogen Negative (Negative) 06/24/22 17:40 Ur Leukocyte Esterase 3+ (Negative) H 06/24/22 17:40 Urine WBC (Auto) >30 /hpf (0-5) H 06/24/22 17:40 Urine RBC (Auto) 0-4 /hpf (0-4) 06/24/22 17:40 U Hyaline Cast (Auto) 5-10 /lpf (0-5) H 06/24/22 17:40 U Epithel Cells (Auto) 10-20 /lpf (0-5) H 06/24/22 17:40 Urine Bacteria (Auto) 1+ (Negative) H 06/24/22 17:40 Nasal Screen MRSA (PCR) Negative (Negative) 06/24/22 22:11 Stl C. cayetanensis PCR Not Detected (NotDetected) 06/27/22 05:50 Stool Rotavirus A PCR Not Detected (NotDetected) 06/27/22 05:50 Stl Adenov F 40/41 PCR Not Detected (NotDetected) 06/27/22 05:50 Stool Astrovirus (PCR) Not Detected (NotDetected) 06/27/22 05:50 Stool Campylobacter PCR Not Detected (NotDetected) 06/27/22 05:50 Stool Cryptosporidium PCR Not Detected (NotDetected) 06/27/22 05:50 Stl E.coli Shiga Tox PCR Not Detected (NotDetected) 06/27/22 05:50 Stl Enterotoxigenic E PCR Not Detected (NotDetected) 06/27/22 05:50 Stool EPEC (PCR) Not Detected (NotDetected) 06/27/22 05:50 Stool EAEC (PCR) Not Detected (NotDetected) 06/27/22 05:50 Stl E. histolytica PCR Not Detected (NotDetected) 06/27/22 05:50 Stool Giardia Lamblia PCR Not Detected (NotDetected) 06/27/22 05:50 Stool Salmonella PCR Not Detected (NotDetected) 06/27/22 05:50 Stool Sapovirus (PCR) Not Detected (NotDetected) 06/27/22 05:50 Stl P. shigelloides PCR Not Detected (NotDetected) 06/27/22 05:50 Stl Shigella/EIEC PCR Not Detected (NotDetected) 06/27/22 05:50 St Y.enterocolitica PCR Not Detected (NotDetected) 06/27/22 05:50 Stool Vibrio (PCR) Not Detected (NotDetected) 06/27/22 05:50 Stl Vibrio cholerae PCR Not Detected (NotDetected) 06/27/22 05:50 Stl Norovirus GI/GII PCR Not Detected (NotDetected) 06/27/22 05:50 Digoxin 10.8 ng/ml (0.8-2.0) H* 07/10/22 05:40 Levetiracetam 39.7 mcg/mL (6.0-46.0) 07/04/22 07:34 RPR Nonreactive (Nonreactive) 06/29/22 21:47 Hep Bs Antigen NON-REACTIVE (NON-REACTIVE) 07/05/22 06:48 Hep Bs Ag Confirmation TNP 07/05/22 06:48 SARS-CoV-2, RNA, NAAT POSITIVE (NEGATIVE) A* 06/24/22 18:49 Blood Type A Positive 06/24/22 17:12 Antibody Screen NEGATIVE 06/24/22 17:12 Impressions KUB X-Ray 06/26/22 17:20 KUB HISTORY: nausea/vomiting COMPARISON: KUB 07/12/2016. Abdomen and pelvis CT 02/25/2022. FINDINGS: The bowel gas pattern is unremarkable. There are no dilated loops of small bowel to suggest an obstruction. No renal calculi. No ureteral calculi. Calcifications in the deep pelvis likely represent phleboliths. No pneumoperitoneum or pneumatosis. The cardiac silhouette remains enlarged. Prior cholecystectomy. Vascular calcifications are noted. IMPRESSION: No evidence for a bowel obstruction. ACT 112: Negative or not required by law. Electronically signed by: Javon Tariq M.D. 06/26/2022 6:01 PM Head CTA 06/28/22 17:27 CTA ANGIOGRAPHY OF THE HEAD CLINICAL HISTORY: worsening neuro status COMPARISON STUDY: CTA of the head June 24, 2022. TECHNIQUE: Helical axial images of the head were obtained following uneventful intravenous administration of 111 cc of Optiray. Sagittal and coronal reconstructions were viewed as well as maximal intensity projections on an independent 3-D workstation. Automated exposure control was utilized for the study. A dose lowering technique was utilized adhering to the principles of ALARA. FINDINGS: Extensive plaque within the bilateral cavernous carotids is noted. There is moderate stenosis of the supraclinoid left ICA. This is unchanged. No central vessel occlusion is identified. There is no intracranial aneurysm. There is persistence of the bilateral posterior cerebral arteries. The intracranial portions of the vertebral arteries and the basilar artery are diminutive. This is unchanged. No intracranial aneurysm. Major dural sinuses are patent. Ventricular system is stable. Small amount of fluid within the bilateral mastoid air cells is noted. There are secretions within the right maxillary and left sphenoid sinuses. There are postoperative findings within the ethmoid sinuses. IMPRESSION: 1. No central vessel occlusion. No intracranial aneurysm. 2. This is unchanged since prior CTA, as described above. Moderate intracranial plaque. ACT 112: Negative or not required by law. Electronically signed by: Andrews Gauthier M.D. 06/28/2022 6:[address] 06/28/22 17:28 CT OF THE HEAD WITHOUT CONTRAST CLINICAL HISTORY: worsening neuro status COMPARISON STUDY: Head CT June 24, 2022 and June 28, 2022 at 1:18 PM. MRI of the brain October 10, 2019. TECHNIQUE: Helical axial images of the head were obtained without IV contrast. Automated exposure control was utilized for the study. A dose lowering technique was utilized adhering to the principles of ALARA. FINDINGS: No acute intracranial hemorrhage, midline shift or mass effect is present. Ventricular system is stable. Basal cisterns are patent. There are no extraaxial collections. Extensive white matter hypodensities are unchanged and favor small vessel disease. Old infarcts within the bilateral cerebellar hemispheres are unchanged. Old left frontal lobe infarct is noted. The appearance of the brain is unchanged. There are no findings to suggest acute dural sinus thrombosis or acute territorial infarct. There are no significant calvarial abnormalities. There are secretions within the right sphenoid sinus. Small amount of fluid within the bilateral mastoid air cells is present. IMPRESSION: No acute intracranial findings. No change in appearance of the brain. ACT 112: Negative or not required by law. Electronically signed by: Andrews Gauthier M.D. 06/28/2022 6:06 PM Neck CTA 06/28/22 17:29 CT ANGIOGRAPHY OF THE NECK WITH CONTRAST CLINICAL HISTORY: worsening neuro status COMPARISON STUDY: CTA of the neck June 24, 2022. Technique: CT angiography of the carotid and vertebral arteries was obtained using Optiray and 3D reconstruction on an independent workstation. NASCET criteria was utilized. Automated exposure control was utilized for the study. A dose lowering technique was utilized adhering to the principles of ALARA. CT DOSE: 1194.18 mGy.cm Findings: A right pleural effusion is partially imaged. There is no cervical lymphadenopathy. No acute cervical spine fracture is noted. The bilateral vertebral arteries are somewhat diminutive. This is unchanged. There is extensive plaque within the bilateral common carotid and cervical internal carotid arteries. There is 80% stenosis of the proximal left internal carotid artery, 1.5 cm distal to the vessel origin. There is 50% stenosis of the proximal right internal carotid artery. CTA of the head will be reported separate. IMPRESSION: Extensive plaque within the bilateral common carotid and internal carotid arteries. 80% stenosis of the proximal left internal carotid artery and 50% stenosis of the proximal right internal carotid artery. ACT 112: Negative or not required by law. Electronically signed by: Andrews Gauthier M.D. 06/28/2022 6:13 PM Brain MRI 06/28/22 18:39 MRI OF THE BRAIN WITHOUT CONTRAST CLINICAL HISTORY: altered MS, dysarthria, r/o acute CVA COMPARISON STUDY: MRI of the brain October 10, [address] and CTA of the head performed earlier today. TECHNIQUE: Utilizing a 1.5 Yuki magnet and dedicated coil, multiplanar, multiecho imaging of the brain was performed without IV contrast. FINDINGS: This study is moderately compromised by motion artifact. However, there are no foci of restricted diffusion to suggest acute infarct. Ventricular system is stable. Basal cisterns are patent. There are no extra-axial collections. Foci of encephalomalacia within the cerebellar hemispheres are unchanged. Extensive white matter T2 hyperintense foci are unchanged. Old lacunar infarcts within the bilateral basal ganglia are noted. No intracranial masses are identified on unenhanced exam. Fluid within the bilateral mastoid air cells is greater on the left. There are secretions within the left sphenoid and right maxillary sinuses. IMPRESSION: 1. No acute intracranial findings. 2. Exam compromised by motion artifact. ACT 112: Negative or not required by law. Electronically signed by: Andrews Gauthier M.D. 06/28/2022 8:12 PM Chest X-Ray 06/29/22 05:58 XR chest 1V portable CLINICAL HISTORY: aspiration TECHNIQUE: Single frontal radiograph of the chest was obtained. Comparison: Comparison is made to chest radiograph 06/26/2019 FINDINGS: No lines and tubes are seen. Cardiomegaly is noted. The aortic arch is calcified. Prominence and cephalization of the vasculature is seen. Trace right pleural effusion is noted. IMPRESSION: 1. Cardiomegaly and mild pulmonary edema. No evidence of consolidative opacity to suggest aspiration. 2. Trace right pleural effusion. ACT 112: Negative or not required by law. Electronically signed by: Kole Hammond M.D. 06/29/2022 7:16 AM
[2022-07-11] MEDS ORDERED: DIGOXIN 0.125 MG TAB PO SCH (16:00)
[2022-07-11] MEDS: CALCITRIOL 0.25 MCG CAPSULE PO SCH (16:50)
[2022-07-11] MEDS: MIRTAZAPINE TAB 15 MG TAB PO SCH (21:45)
[2022-07-12] MEDS ORDERED: METOPROLOL SUCC 25MG EXT REL TAB PO SCH (09:00)
[2022-07-12] MEDS: MIDODRINE HCL 2.5 MG TAB PO SCH (09:09)
[2022-07-12] MEDS: levETIRAcetam 250 MG TAB PO SCH (09:09)
[2022-07-12] MEDS: ATORVASTATIN 40 MG TAB PO SCH (09:09)
[2022-07-12] MEDS: ADVANCED PROBIOTIC 1250 MG CAPSULE PO SCH (09:09)
[2022-07-12] MEDS: ASPIRIN 81 MG ECTAB PO SCH (09:09)
[2022-07-12] MEDS: GLUCOSAMINE SULFATE 500 MG CAP PO SCH (09:09)
[2022-07-12] MEDS: allopurinoL 300 MG TAB PO SCH (09:09)
[2022-07-12] MEDS: LIDOCAINE 5% 1 PATCH TD SCH ×2 (09:10)
[2022-07-12] MEDS: TRIMETHOPRIM/POLYMYXIN B OP SCH (09:10)
[2022-07-12] MEDS: HEPARIN SOD 5,000 UNIT/0.5 ML VIAL SQ SCH (09:10)
[2022-07-12 09:16] LABS: Calcium 9.2 mg/dl (8.5-10.1); Creatinine Clr Calc Pharmacy 12.5 ml/min; Est GFR (African American) 13.2 ml/min; Est GFR (Non-African American) 11.4 ml/min; Potassium 3.7 mmol/L (3.5-5.1)
--- NOTE | 2022-07-13 14:14 | Coding Query ---
PRESSURE ULCER DOCUMENTATION To promote full compliance with coding requirements relating to patient care, physician participation is requested in all cases of school cleaner uncertainty. Please assist us with the question(s) below: Please specify the known or suspected type by placing an "X" within the parenthesis (x). A pressure ulcer is documented starting on the 07/10 Progress Note with, " Bilateral Heel Wounds, Pressure ulcer". Please specify the site(s) of Pressure Ulcer:___Bilateral Heel/Achilles (also based on Wound Care Nurse Evaluation) If possible, please check the box that provides the specific stage of the pressure ulcer ( ) Stage I ( ) Stage II ( ) Stage III ( ) Stage IV (x ) Unstageable ( ) Unable to determine Was the pressure ulcer present on admission? Please check the appropriate box for the pressure ulcer: (x ) Present on admission ( ) Not present on admission ( ) Unable to be clinically determined Thank you Sheri Geiger [facility]
--- NOTE | 2022-07-26 10:48 | Discharge Summary ---
Date of Service July 12, 2022 Admission HPI Per Admitting Provider History obtained from patient, family, and records. Limited history from patient secondary to chronic cognitive impairment. Medical history significant for chronic systolic heart failure (EF 40 to 45%, TTE 2021), CAD sp stenting, valvular heart disease (severe TR, mild /MR ), COPD/nocturnal hypoxia/pulmonary hypertension as per records, history of recurrent CVA, HTN, hyperlipidemia, atrial fibrillation off anticoagulation due to hx ICH, cerebral amyloid angiopathy as per records, ESRD on HD, history of posttraumatic seizures, DM2 diet controlled, chronic anemia (baseline hemoglobin 11 ),, episodic thrombocytopenia, cognitive impairment as per records, mood disorder Two confinements last month for respiratory failure. First confinement from May 04 to for cardiorenal syndrome and influenza A. Second confinement from May 29 to June 07 4 severe COVID-19 pneumonia/HCAP. Patient completed Decadron, Remdesivir and Zosyn course. Patient noted to be agitated by daughter this afternoon upon return from dialysis. Patient later on noted to have decreased responsiveness. Resident slumped forward. Question of slurred speech when patient woke up. No witnessed seizures. SBP 70s at the care home. Patient noted to be tachycardic heart rate 130s. Stroke alert called upon arrival at the ER but subsequently canceled due to absence of focal neurologic deficits as per ER provider. Patient currently awake and at baseline mentation as per daughter. Patient does not know why she is at the ER. Denies chest pain, SOB, abdominal pain, headache, dysuria symptoms. Complaining of chronic left upper extremity pain. MEDICAL HISTORY: As above. SURGERIES: section, knee surgery, cholecystectomy, tonsillectomy, sinus surgery, vascular procedures FAMILY HISTORY: Heart disease, RA, DM, heart disease, PERSONAL AND SOCIAL HISTORY: Nonsmoker. 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 Admission Exam Per Admitting Provider GENERAL: Comfortable, disoriented, no respiratory distress SKIN: Pallor, warm HEENT: Bespectacled, pale, palpebral conjunctivae, no ptosis, dry buccal mucosa NECK : Supple, short neck no tenderness CHEST : decreased breath sounds, no tenderness HEART : Irregular, systolic murmur ABDOMEN: Some distention, nontender EXTREMITIES : Minimal LE swelling, no LE tenderness, no other conspicuous deformities noted NEUROLOGIC : I disoriented, no facial asymmetry, gait and stance not assessed Principal Diagnosis Syncope secondary to Hypotension Discharge Exam General- oriented x 2, not in distress, speaks in sentences with no effort or accessory muscle use Eyes- anicteric Neck- no JVD Lungs- clear BS bilaterally, no rales/wheezes Heart- normal rate, regular rhythm; no murmurs Abdomen- normal bowel sounds, nondistended, soft, no tenderness Extremities- no pretibial edema, no calf tenderness (+) orthotic boots BL heel wounds: dressings in place Neuro- alert, oriented x 2; no new gross focal neurologic deficits Skin- warm & dry Discharge Data Allergies Allergy/AdvReac Type Severity Reaction Status Date / Time verapamil Allergy Unknown ON WINDY Verified 06/24/22 17:55 [facility] lisinopril AdvReac Intermediate COUGH Verified 06/24/22 17:55 Consultations 06/24/22 19:55 ED Decision to Admit Stat 06/24/22 21:51 Consult Nephrology Routine 06/26/22 17:47 Consult Palliative Care Routine 06/29/22 12:11 Consult Neurology Routine 06/30/22 10:55 Consult Cardiology Routine 07/04/22 08:01 Consult Psychiatry Routine 07/09/22 14:36 Consult Podiatry Routine Ordered Studies 06/24/22 16:49 CT angio head w con Stat CT angio neck with con Stat CT head/brain wo con Stat 06/28/22 11:35 CT head/brain wo con Urgent 06/28/22 17:27 CTA head w con [CT angio head w con] Stat 06/28/22 17:28 CT head/brain wo con Stat 06/28/22 17:29 CTA neck with con [CT angio neck with con] Stat 06/28/22 18:39 MRI Brain [MR brain wo con] Stat Hospital Course (1) Encephalopathy: (1) Unresponsiveness, Syncope secondary to Hypotension: Plan: Syncope secondary to Hypotension Most likely due to hypotension (SBP in 70s on admission) Started midodrine 5mg PO TID with improved BP AM cortisol normal blood cultures negative History of multiple readmissions for similar Metoprolol XL 25 mg 3 times weekly resumed due to episode of NSVT Altered mental status, likely secondary to delirium vs metabolic encephalopathy Multifactorial: Hospital delirium, metabolic encephalopathy 06/28 was noted to have worsening confusion and slurred speech so stroke alert was called CT head negative for acute findings. CTA head/neck shows 80% left ICA stenosis and 50% right ICA stenosis. MRI lobo negative for acute stroke. EEG 3/ shows moderate encephalopathy but no epileptiform waves ABG unremarkable Folate low (repletion started) B12 normal RPR negative Ammonia not elevated At discharge, mentation back to baseline Keppra dose elevated at [address] Caraballo Recommend to decrease Keppra dosing by 50%. Mentation improved with reduction in dose of Keppra. Remeron increased to 50 mg p.o. daily as recommended by psych Digoxin level elevated 3.1 per [facility], patient's confusion predates digoxin elevation, no changes with Digoxin recommended by Cardio given Digibind evening of 07/09 for Digoxin level 2.6, repeat level today 10.8--> falsely high secondary to Digibind Digoxin dose decreased to 0.0625 given ESRD on HD status. Bilateral Heel Wounds, Pressure ulcer no signs of infection consulted orthotics service --> PRAFO boots placed, also has been adjusted secondary to pain (+) bliateral eschar heels, open wounds achilles tendon area--> no signs of infection; podiatry consulted; recommend offloading; continue dressing changes including AG aquacell and foam As needed Tylenol ordered Chronic A fib Patient not on anticoagulation secondary to history ICH, history of cerebral amyloid angiopathy hx COPD/nocturnal hypoxemia/pulm hypertension, oxygenation stable --At baseline 3 L of oxygen via nasal cannula hx chronic systolic heart failure --fluid status managed by dialysis hx CAD sp stenting valvular heart disease(severe TR, mild /MR ) -stable currently Seizure -home regime: keppra 500mg BID. Extra 500mg on dialysis days (MWF) after dialysis Keppra level 80s, reduce keppra by 50% per Neuro ESRD on HD -Managed per Nephrology. 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 SQ heparin Disposition-discharge back to [facility] Total Time Total Time Spent Total Time Spent (In Minutes): 35 Total Time Includes: Examination of the Patient, Discharge Planning, Medication Reconciliation, Communication With Other Providers and Other Discharge Plan Discharge Items Patient Disposition: Transfer [facility] Reason For Visit: HYPOTENSION, COMP UTI (COVID ISOL NOT NEEDED, POS Discharge Diagnosis: Syncopal episode due to hypotension Supratherapeutic Keppra level Elevated digoxin level Activity: Resume your previous activity Non-emergency contact: Primary Care Provider Call non-emergency contact if: you have any medication questions and your symptoms worsen Follow-up/Referrals: Cristiano Cerda MD [Primary Care Provider] - Diet: Dialysis Renal Diet Texture: Easy to Chew Diet Comment: Easy to chew diet. No straw. Aspiration and reflux precaution Addtl Attending Provider Instructions: The following medication changes have been made: 1) Midodrine 5 mg 3 times a day is added 2) Decrease Keppra dose to 250 mg twice daily. Also decrease Keppra dose to 250 mg on Monday and Monday. 3) Decrease digoxin dose to 0.0625 mg on Monday and Monday. 4) Decrease allopurinol dose to 300 mg once daily Please follow aspiration precaution. Please avoid any sedatives. Pending Studies at Discharge: No Stand-Alone Forms: [facility] Skilled Items Patient informed of condition?: Yes DNR: Yes Discharge Level of Care: Skilled Communicable Disease: No Discharge Prognosis: Stable Lines: None Urinary Catheter: No Medications and DC Order Prescriptions: New levetiracetam [Keppra] 250 mg Tablet 250 mg PO MoWeFr@1600 Qty: 30 0RF levetiracetam [Keppra] 250 mg Tablet 250 mg PO BID Qty: 30 0RF allopurinol 300 mg Tablet 300 mg PO DAILY Qty: 30 0RF digoxin [Digitek] 125 mcg (0.125 mg) Tablet 0.0625 mg PO MoWeFr@1600 Qty: 30 0RF midodrine 2.5 mg Tablet 5 mg PO TID@0800,1200,1700 30 Days Qty: 30 0RF Continued nutritional supplements Powder 1 ea PO DAILY metoprolol succinate 25 mg tablet extended release 24 hr 25 mg PO 4XWK Rx Instructions: TAKES SUN, TUES, THURS, & SAT. lidocaine-prilocaine 2.5-2.5 % cream 1 applic topical 3XWK Rx Instructions: apply a small amount to access AVF 30-60 min prior to dialysis, cover with occlusive dressing (saran wrap) atorvastatin 80 mg tablet 80 mg PO DAILY Qty: 30 0RF aspirin 81 mg Tablet,Delayed Release (Dr/Ec) 162 mg PO DAILY Qty: 30 0RF calcitriol 0.5 mcg Capsule 0.5 mcg PO 3XWK Qty: 12 0RF Rx Instructions: administer in dialysis TAKES MON, WED, & FRI. docusate sodium [Colace] 100 mg Capsule 200 mg PO DAILY Qty: 60 0RF Discontinued digoxin 125 mcg (0.125 mg) Tablet 125 mcg PO 3XWK Rx Instructions: AFTER DAILYSIS, MON, WED, & FRI. levetiracetam 500 mg tablet 500 mg PO 4XWK Rx Instructions: TAKES QAM & 2100 ON NON-DIALYSIS DAYS, SUN, TUES, THURS, & SAT. levetiracetam 500 mg tablet 500 mg PO 3XWK Rx Instructions: TAKES AT 0600, 1700 & 2100 ON MON, WED, & FRI ON DIALYSIS DAYS. allopurinol 300 mg Tablet 450 mg PO DAILY Qty: 45 0RF [id number] [Glucosamine Daily Complex] 1,500-400-100 mg-unit-mg Tablet 1 tab PO DAILY Qty: 30 0RF Rx Instructions: give after food/meal Discharge Orders: Discharge Order (Routine); Ordered 07/12/22 Ordered By: Júnior Smith Admission Data Admit Date/Time: 06/24/22 20:09 Attending Provider: Júnior Smith Admit Provider: Jame Blackman Primary Care Provider: Cristiano Cerda Other Providers: Jame Blackman ; Leeanne Lanza ; Kimberly Dubon ; Tali Bergeron ; Britton Grimes ; Kimi Gerber ; Ros Villeda ; Rudy Yuan ; Brandan Cortes ; Rachell Swain ; Liban Chavez ; Kirby Brooks Other Interventions: Discharge Summary Assessment (RN) Last Done: 07/12/22 10:24
== END 2022-07-12 10:30 | DRG 314 ==
LOC: ED 16:54 → SUATTDRO 20:09 → 2S 20:09